=== PATIENT | female | born 1945 | race Caucasian/White ===

== ENCOUNTER 2017-09-05 17:46 | Emergency (ER) | payer OTHER, SELFPAY ==
[2017-09-05 18:00] VITALS: BP 155/91; PULSE 84; RESP 14; TEMP 36.8; O2SAT 100; BMI 33.5
--- NOTE | 2017-09-05 21:40 | PC.NURSE ---
pt reported wanting to leave. Had brought [facility] paperwork in to room for patient to sign. Pt stated would wait at this time. After about 15min, pt visualized ambulating out of ER. Pt did not sign [facility] paperwork.
--- NOTE | 2017-09-06 03:35 | ED.NAVMDI ---
HPI - Nausea/Vomiting/Diarrhea General Chief complaint: Nausea/Vomiting/Diarrhea Stated complaint: STOMACH PAIN, SHORT OF BREATH Time Seen by Provider: 09/05/17 20:17 History of Present Illness HPI Narrative: The patient left prior to my evaluation. I was not notified of patient wanting to leave until after she left. Related Data Home Medications Medication Instructions Recorded Confirmed ASPIRIN (#ASPIRIN) 81 mg PO Q DAY #0 11/21/10 niacin (inositol niacinate) 2,000 mg PO HS #0 11/23/16 [Niacin Flush Free] Previous Rx's Medication Instructions Recorded Diabetic Shoes pkg #1 06/06/16 Walker: Four Wheel u #1 10/24/16 temazepam 0 mg PO HSP #60 cap 01/22/17 pramipexole [Mirapex] 0.375 mg PO HS #60 tab 03/02/17 furosemide 0 PO SEE INSTRUCTIONS #45 tab 05/07/17 Diabetic Shoes pkg #1 06/05/17 glimepiride 0 PO QDAY #270 tab 06/07/17 nacojrlibh-rapphwfkroxme-znsc 1 tab PO Q6HP PRN #120 tab 07/18/17 bupropion HCl [Wellbutrin SR] 150 mg PO BID #60 tab 07/26/17 gabapentin [Neurontin] 600 mg PO TID #270 tab 07/26/17 ciprofloxacin HCl 250 mg PO BID #10 tab 07/27/17 carbidopa-levodopa 0 PO SEE INSTRUCTIONS #450 tab 08/01/17 cyclobenzaprine 5 mg PO Q8H PRN #20 tab 08/01/17 lovastatin 0 PO EVERY OTHER DAY #45 tab 08/01/17 pioglitazone [Actos] 15 mg PO QDAY #90 tab 08/01/17 levothyroxine [Levoxyl] 0.175 mg PO QDAY #90 tab 08/02/17 oxycodone-acetaminophen 5 mg-325 See Label Instructions .ROUTE 08/31/17 mg tablet .COMPLEX PRN #120 tab Allergies Allergy/AdvReac Type Severity Reaction Status Date / Time amoxicillin [From AUGMENTIN] Allergy Mild RASH Unverified 08/08/17 13:01 clavulanic acid Allergy Mild RASH Unverified 08/08/17 13:01 [From AUGMENTIN] metformin [METFORMIN] AdvReac Severe SWELLING Unverified 08/08/17 13:01 [facility] Social History Smoking Status: Never smoker Discharge Plan Departure Discharge Date/Time: 09/05/17 21:43 Interventions: ED Discharge Assessment Last Done: 09/05/17 21:42 Prescriptions: No Action ASPIRIN (#ASPIRIN) 81 mg PO Q DAY Qty: 0 RF: 0 Diabetic Shoes Qty: 1 RF: 0 Walker: Four Wheel Qty: 1 RF: 0 niacin (inositol niacinate) [Niacin Flush Free] 750 MG capsule 2,000 mg PO HS Qty: 0 RF: 0 temazepam 15 MG capsule PO HSP Qty: 60 RF: 5 pramipexole [Mirapex] 0.125 MG tablet 0.375 mg PO HS Qty: 60 RF: 0 furosemide 40 MG tablet PO SEE INSTRUCTIONS Qty: 45 RF: 3 Diabetic Shoes Qty: 1 RF: 0 glimepiride 2 MG tablet PO QDAY Qty: 270 RF: 3 dbthtkfyzy-ngyxlnnpbrjwn-fqwn 1 EACH tablet 1 tab PO Q6HP PRNQty: 120 RF: 5 bupropion HCl [Wellbutrin SR] 150 MG tablet extended release 12 hr 150 mg PO BID Qty: 60 RF: 5 gabapentin [Neurontin] 600 MG tablet 600 mg PO TID Qty: 270 RF: 0 ciprofloxacin HCl 250 MG tablet 250 mg PO BID Qty: 10 RF: 0 pioglitazone [Actos] 15 MG tablet 15 mg PO QDAY Qty: 90 RF: 4 carbidopa-levodopa 50 MG/200 MG tablet extended release PO SEE INSTRUCTIONS Qty: 450 RF: 3 lovastatin 10 MG tablet PO EVERY OTHER DAY Qty: 45 RF: 5 cyclobenzaprine 5 MG tablet 5 mg PO Q8H PRNQty: 20 RF: 3 levothyroxine [Levoxyl] 175 MCG tablet 0.175 mg PO QDAY Qty: 90 RF: 0 oxycodone-acetaminophen [Percocet] 5-325 mg tablet See Label Instructions .ROUTE .COMPLEX PRN (Reason: pain) Qty: 120 RF: 0
== END 2017-09-05 21:43 ==
PROVIDERS: Emergency Provider Emergency Medicine; Family Provider Family Medicine; PCP Family Medicine
DX: R10.9 Unspecified abdominal pain (principal)
CPT/HCPCS: 99281; 99282

== ENCOUNTER → 2017-10-04 10:20 | Outpatient (CLI) | payer MEDICARE, OTHER, SELFPAY ==
[2017-10-04 11:17] LABS: Hemoglobin A1C% w Est Avg Glu 7.7 % (4.0-6.0)
[2017-10-04 11:49] LABS: Thyroid Stimulating Hormone 0.25 uIU/mL (0.47-4.68)
== END ==
PROVIDERS: Family Provider Family Medicine; PCP Family Medicine; Visit Provider Family Medicine
DX: E11.9 Type 2 diabetes mellitus without complications (principal); E03.9 Hypothyroidism, unspecified
CPT/HCPCS: 36415; 83036; 84443

== ENCOUNTER → 2017-12-21 08:57 | Outpatient (CLI) | payer MEDICARE, OTHER, SELFPAY ==
--- NOTE | 2017-12-21 08:59 | DI.MRI.S_ITS ---
PROCEDURE: MR LUMBAR SPINE WO CON INDICATIONS: Status post fusion with hardware loosening TECHNIQUE: Noncontrast sagittal T1 spin echo and T2 fast echo, sagittal STIR, axial T1 and T2 fast spin echo through the lumbar spine. In cases with scoliosis, additional coronal T2 fast spin echo may be performed. COMPARISON: [facility] [place], CR, SPINE LUMB 2 OR 3VW, 08/15/2016, 11:20. [facility] [place], CR, XR LUMBAR SPINE 2 OR 3 VIEWS, 04/02/2017, 13:26. [facility] [place], CR, XR LUMBAR SPINE 2 OR 3 VIEWS, 07/11/2017, 15:42. [facility], MR, L-SPINE W&WO CONTRAST, 04/26/2017, 14:59. FINDINGS: Image quality: Excellent. Alignment and Curvature: There is grade 1 anterolisthesis of L2 on L3 and L3 on L4. Bone Marrow: There is discectomy and spinal fusion at L2-L3 and L3-L4. Mild compression fracture of L4 involving the superior endplate, likely chronic. Spinal Cord: Conus medullaris terminates at the L1-L2 level. Visualized cord demonstrates normal signal and size. Paraspinous Soft Tissues: No paravertebral masses. L1-L2: Normal appearance. L2-L3: Discectomy, left heminephrectomy and posterior fusion. There is minimal posterior bulge. Severe right and moderate left facet arthropathy. There is mild central canal stenosis. Mild bilateral foraminal stenosis. There is no significant change from the last exam. L3-L4: Discectomy, left hemilaminectomy and posterior fusion. There is minimal posterior bulge. Severe right and moderate left facet arthropathy. There is mild central canal stenosis. Mild bilateral foraminal stenosis. There is no significant change from the last exam. L4-L5: Preserved disc height and moderate disc desiccation. No central canal or foraminal stenosis. L5-S1: Normal appearance. IMPRESSION: 1. Multilevel degenerative and postsurgical changes as described, minimally changed from the last exam. 2. Mild central canal stenosis at L 2-L3 and L3-L4. 3. Mild foraminal stenosis as described. 4. Mild nonacute compression fracture of L4. Dictated by: Isis Billy M.D. on 12/21/2017 at 11:40 Approved by: Isis Billy M.D. on 12/21/2017 at 12:04
== END ==
PROVIDERS: Family Provider Family Medicine; PCP Family Medicine; Visit Provider Physical Medicine & Rehabilitation
DX: M51.36 Other intervertebral disc degeneration, lumbar region (principal); M48.061 Spinal stenosis, lumbar region without neurogenic claudication; M48.56XA Collapsed vertebra, not elsewhere classified, lumbar region, initial encounter for fracture; M54.5 Low back pain; G89.29 Other chronic pain; Z98.1 Arthrodesis status
CPT/HCPCS: 72148

== ENCOUNTER 2017-12-31 11:34 | Emergency (ER) | payer MEDICARE, OTHER, SELFPAY ==
[2017-12-31 11:48] VITALS: BP 151/81; PULSE 113; RESP 22; TEMP 36.9; O2SAT 100; BMI 33.6
--- NOTE | 2017-12-31 11:50 | DI.RAD.S_ITS ---
PROCEDURE: XR CHEST 1V INDICATIONS: chest pain TECHNIQUE: One view of the chest was acquired. COMPARISON: [facility], , CHEST 2 VIEW, 07/03/2017, 16:36. FINDINGS: Surgical changes and devices: None. Lungs and pleura: No pleural effusions or pneumothorax. Lungs are clear. Mediastinum: Mediastinal contours appear normal. Heart size is normal. Bones and chest wall: No suspicious bony lesions. Overlying soft tissues appear unremarkable. IMPRESSION: No acute cardiopulmonary pathology. Dictated by: Jose F Soto M.D. on 12/31/2017 at 12:02 Approved by: Jose F Soto M.D. on 12/31/2017 at 12:02
[2017-12-31] MEDS: SODIUM CHLORIDE 0.9% 1,000 ML 150 ML IV (11:55)
[2017-12-31] MEDS: ASPIRIN 81 MG TAB 324 MG PO (11:55)
[2017-12-31 11:57] LABS: Add Manual Diff / Slide Review NO; Basophils Percent Auto 0.3 % (0-2); Hematocrit 35.2 % (36-46); Hemoglobin 11.1 g/dL (12.0-16.0); Lymphocytes Percent Auto 17.4 % (25-40); Mean Corpuscular HGB Conc 31.5 % (30-36); Mean Corpuscular Hemoglobin 23.7 PG (26-34); Mean Corpuscular Volume 75.3 fL (80-100); Monocytes Percent Auto 6.7 % (3-14); Neutrophils Absolute Auto 7400 /uL (3000-5900); Neutrophils Percent Auto 74.6 % (50-75); Platelet Count 389 X10^3/uL (150-400); Red Blood Cell Count 4.67 X10^6/uL (4.0-5.2); Red Cell Distribution Width 19.3 % (11.6-14.8); White Blood Cell Count 9.9 X10^3/uL (4.5-11.0)
[2017-12-31 12:04] LABS: Alanine Aminotransferase 9 IU/L (9-52); Albumin 4.4 g/dL (3.5-5.0); Albumin Globulin Ratio 1.4 (1.0-2.8); Alkaline Phosphatase 86 U/L (38-126); Aspartate Aminotransferase 29 IU/L (14-36); BUN Creatinine Ratio 18.2 (6-22); Bilirubin Total 0.2 mg/dL (0.2-1.3); Blood Urea Nitrogen 20 mg/dL (7-17); Calcium 9.7 mg/dL (8.4-10.2); Carbon Dioxide 23 mmol/L (22-32); Chloride 102 mmol/L (98-107); Creatine Kinase < 20 U/L (30-135); Globulin 3.1 g/dL (1.7-4.1); Glucose 180 mg/dL (80-110); HEMOLYSIS < 15 (0-50); Lipase 111 U/L (23-300); Potassium 3.8 mmol/L (3.4-5.1); Sodium 140 mmol/L (137-145); Total Protein 7.5 g/dL (6.3-8.2)
--- NOTE | 2017-12-31 12:08 | ED.CHESTPAIN ---
HPI - Chest Pain General Chief Complaint: Chest Pain Stated Complaint: CHEST PAIN Time Seen by Provider: 12/31/17 11:53 Source: patient and family Mode of arrival: ambulatory Limitations: no limitations History of Present Illness HPI narrative: This is a 72-year-old female comes to the emergency department with complaint of feeling short of breath and having some chest pain that started about 1:00 a.m.. Patient states that she did eat much today Um and last night. Um she felt sort of lightheaded like she might pass out so she did eat some food overnight did not really help. She is having tunnel vision but just feels lightheaded like she might fall. Um she does feel increasingly short of breath with exertion. She is having some pain on the left side of her chest and through to her back. It has been constant since about 1:00 a.m. without any resolution. She is not having any fevers. Um she has felt kind of hot and sweaty but no actual sweats or chills. She has had a mild cough. No vomiting. She has had some diarrhea the last day. She has swelling in her lower extremities but this is irregular current sit no worsening. She does take Lasix every other day. She does not have any history of ND or CVA but does take medication for cholesterol and thyroid as well as diabetes type 2 which she has been on medication for about a month. She does have a history significant for gastric bypass per MD complaint: chest pain Onset (ago): hour(s) Duration: constant Pain location: left chest Severity: moderate Quality: tightness and aching Relieving factors: nothing Exacerbating factors: exertion Related Data Home Medications Medication Instructions Recorded Confirmed ASPIRIN (#ASPIRIN) 81 mg PO Q DAY #0 11/21/10 12/06/17 niacin (inositol niacinate) 2,000 mg PO HS #0 11/23/16 12/06/17 [Niacin Flush Free] Previous Rx's Medication Instructions Recorded Diabetic Shoes pkg #1 06/06/16 Walker: Four Wheel u #1 10/24/16 pramipexole [Mirapex] 0.375 mg PO HS #60 tab 03/02/17 furosemide 0 PO SEE INSTRUCTIONS #45 tab 05/07/17 Diabetic Shoes pkg #1 06/05/17 [id number]-xuywqvidyooez-wocz 1 tab PO Q6HP PRN #120 tab 07/18/17 bupropion HCl [Wellbutrin SR] 150 mg PO BID #60 tab 07/26/17 carbidopa-levodopa 0 PO SEE INSTRUCTIONS #450 tab 08/01/17 lovastatin 0 PO EVERY OTHER DAY #45 tab 08/01/17 pioglitazone [Actos] 15 mg PO QDAY #90 tab 08/01/17 glimepiride 2 mg tablet See Label Instructions PO QDAY 09/17/17 #270 tab gabapentin 600 mg tablet See Label Instructions PO TID #180 10/12/17 tab cyclobenzaprine 5 mg tablet 5 mg PO Q8H PRN #20 tab 11/07/17 temazepam 15 mg capsule 0 mg PO HSP #60 cap 11/07/17 levothyroxine 150 mcg capsule 150 mcg PO DAILY #90 cap 11/21/17 oxycodone-acetaminophen 5 mg-325 See Label Instructions .ROUTE 12/17/17 mg tablet .COMPLEX PRN #180 tab Allergies Allergy/AdvReac Type Severity Reaction Status Date / Time amoxicillin [From AUGMENTIN] Allergy Mild RASH Verified 12/31/17 11:51 clavulanic acid Allergy Mild RASH Verified 12/31/17 11:51 [From AUGMENTIN] metformin [METFORMIN] AdvReac Severe SWELLING Verified 12/31/17 11:51 Review of Systems Review of Systems All systems reviewed & are unremarkable except as noted in HPI and below Constitutional Denies chills, Denies fever(s), Denies lethargy, Denies night sweats, Reports poor appetite and Denies weakness Cardiovascular Reports chest pain, Reports chest pain at rest, Reports chest pain with activity, Denies diaphoresis, Denies syncope, Denies rapid heart rate, Reports pedal edema (chronic), Denies irregular heart rhythm, Denies lightheadedness, Denies palpitations, Reports dyspnea, Reports dyspnea on exertion and Denies orthopnea Respiratory Reports chest congestion (mild), Reports cough, Denies pain with cough, Reports dyspnea and Reports dyspnea on exertion Gastrointestinal Gastrointestinal: Denies abdominal pain, Denies melena, Denies change in bowel habits, Denies constipation, Reports diarrhea, Denies nausea and Denies vomiting Genitourinary Denies hematuria, Denies flank pain, Denies urinary incontinence and Denies urinary urgency Neurologic Denies syncope and Denies weakness Endocrine Denies palpitations [facility] Medical History Anemia (Chronic ~2004) Arthritis (Chronic) Chronic back pain (Chronic ~2009) Foot pain (Chronic ~2010) Fractures (Chronic ~2011) Gastric ulcer (Chronic ~1991) Headache (Chronic ~1989) History of irregular menstrual cycles (Chronic ~1989) Hyperthyroidism (Chronic ~2004) Lupus (Chronic ~1999) Migraines (Chronic ~1989) Neuropathy (Chronic ~2008) Ovarian cyst (Chronic ~1999) Painful menstrual periods (Chronic ~1978) Restless leg syndrome (Chronic ~1989) Chicken pox (Resolved) Measles (Resolved) Mumps (Resolved) Surgical History Gastric bypass status for obesity (Acute) H/O hernia repair (Acute) S/P foot surgery, right (Acute) Family History Grandfather No problems noted. Grandmother No problems noted. Mother No problems noted. Social History marital status: Smoking Status: Never smoker alcohol intake: never substance use type: does not use Exam Initial Vital Signs Initial Vital Signs: Vital Signs Temperature 98.5 F 12/31/17 11:48 Pulse Rate 113 H 12/31/17 11:48 Respiratory Rate 22 12/31/17 11:48 Blood Pressure 151/81 H 12/31/17 11:48 Pulse Oximetry 100 12/31/17 11:48 Const General: cooperative, well developed and acute distress ( mild) Nutritional Appearance: well nourished Orientation: alert, awake, oriented x3 and not confused Chest Chest: normal inspection of the chest Resp Effort & Inspection: normal respiratory effort, able to speak in complete sentences, not labored, no respiratory distress and no use of accessory muscles Auscultation: clear to auscultation bilaterally, no rales, no rhonchi and no wheezes Cardio Rate: regular rate Rhythm: regular rhythm Heart Sounds: no click, no gallops, no murmurs and no rubs Bruits: no abdominal aortic bruits Pulses: normal peripheral pulses GI Inspection: non-distended Palpation: soft, no hepatosplenomegaly, No guarding, No pulsatile mass and No tender Auscultation: normal bowel sounds Skin General: no rashes or lesions noted Scores HEART Score Heart Score history: Slightly Suspicious Heart Score EKG: Normal Heart Score Age: > or = 65 years old Heart Score risk factors: 1-2 risk factors Heart Score troponin: < or = to normal limit Heart Score Total: 3 Course Orders Ordered: ED Orders 12/31/17 11:44 B Type Natriuretic Peptide Stat Complete Blood Count AUTO DIFF Stat Comprehensive Metabolic Panel Stat D Dimer Stat Lipase Stat Troponin & CK Cardiac Panel Stat 12/31/17 11:50 XR chest 1V Stat EKG-12 Lead Stat 12/31/17 13:46 CT angio chest PE protocol Stat 12/31/17 14:02 Urine Microscopic Stat Discontinued Medications Aspirin (Aspirin Chew) 324 mg PO NOW ONE Stop: 12/31/17 11:51 Last Admin: 12/31/17 11:55 Dose: 324 mg Sodium Chloride (Normal Saline 0.9%) 1,000 mls @ 150 mls/hr IV CONT FRANCINE Last Infusion: 12/31/17 15:10 Dose: 0 mls/hr Infusion: 12/31/17 14:10 Dose: 150 mls/hr Infusion: 12/31/17 13:58 Dose: 0 mls/hr Infusion: 12/31/17 13:15 Dose: 150 mls/hr Infusion: 12/31/17 12:45 Dose: 999 mls/hr Admin: 12/31/17 11:55 Dose: 150 mls/hr Morphine Sulfate (Morphine) 4 mg IV NOW ONE Stop: 12/31/17 13:35 Last Admin: 12/31/17 13:42 Dose: 4 mg Nitroglycerin (Nitrostat) 0.4 mg SL [id number] PRN PRN Reason: Chest Pain Last Admin: 12/31/17 12:42 Dose: 0.4 mg Reevaluation(s) Reevaluation #1: Recheck after nitro SL and fluids. Patient chest pain is worse. Discussed labs, ekg and that I would like to evaluate for PE. Patient is agreeable. Reevaluation #2: We discussed PE findings, which are negative. Patient labs, EKG x2 are all negative as well as chest x-ray. Patient is feeling much more comfortable at this time and feels comfortable returning home. Time: 14:45 Vital Signs - 8 hr 12/31/17 11:48 12/31/17 12:42 12/31/17 12:50 Temperature 98.5 F Pulse Rate 113 H 80 91 H Respiratory Rate 22 Blood Pressure 151/81 H 119/80 105/61 Blood Pressure [Right Arm] Pulse Oximetry 100 12/31/17 13:30 12/31/17 14:00 12/31/17 14:30 Temperature Pulse Rate 77 77 72 Respiratory Rate 17 21 11 L Blood Pressure Blood Pressure [Right Arm] 110/71 130/63 116/58 L Pulse Oximetry 95 100 96 MDM - Chest Pain Differential Diagnosis Likely atypical chest pain, costochondritis and chest pain Lab Data Attestation: I reviewed the patient's lab results. Result diagrams: 12/31/17 11:44 12/31/17 11:44 Lab Results 12/31/17 12/31/17 12/31/17 Range/Units 11:44 11:44 11:44 WBC 9.9 (4.5-11.0) X10^3/uL RBC 4.67 (4.0-5.2) X10^6/uL Hgb 11.1 L (12.0-16.0) g/dL Hct 35.2 L (36-46) % MCV 75.3 L (80-100) fL MCH 23.7 L (26-34) PG MCHC 31.5 (30-36) % RDW 19.3 H (11.6-14.8) % Plt Count 389 (150-400) X10^3/uL Neut % (Auto) 74.6 (50-75) % Lymph % (Auto) 17.4 L (25-40) % [place] % (Auto) 6.7 (3-14) % Eos % (Auto) 1.0 L (2-4) % Baso % (Auto) 0.3 (0-2) % Neut # (Auto) 7400 H (5135-7079) /uL D-Dimer 234 H (<230) ng/mL Sodium 140 (137-145) mmol/L Potassium 3.8 (3.4-5.1) mmol/L Chloride 102 (98-107) mmol/L Carbon Dioxide 23 (22-32) mmol/L BUN 20 H (7-17) mg/dL Creatinine 1.10 H (0.52-1.04) mg/dL Estimated GFR 49.0 L (>60) mL/min BUN/Creatinine Ratio 18.2 (6-22) Glucose 180 H (80-110) mg/dL Calcium 9.7 (8.4-10.2) mg/dL Total Bilirubin 0.2 (0.2-1.3) mg/dL AST 29 (14-36) IU/L ALT 9 (9-52) IU/L Alkaline Phosphatase 86 (38-126) U/L Total Creatine Kinase < 20 L (30-135) U/L CK-MB (CK-2) TNP Troponin I < 0.012 (0.01-0.034) ng/mL B-Natriuretic Peptide (<100) Total Protein 7.5 (6.3-8.2) g/dL Albumin 4.4 (3.5-5.0) g/dL Globulin 3.1 (1.7-4.1) g/dL Albumin/Globulin Ratio 1.4 (1.0-2.8) Lipase 111 (23-300) U/L Urine RBC (0-5/HPF) Urine WBC (0-5/HPF) Ur Squamous Epith Cells Urine Bacteria (None) Ur Culture Indicated? Micro UA Comment 12/31/17 12/31/17 Range/Units 11:44 14:02 WBC (4.5-11.0) X10^3/uL RBC (4.0-5.2) X10^6/uL Hgb (12.0-16.0) g/dL Hct (36-46) % MCV (80-100) fL MCH (26-34) PG MCHC (30-36) % RDW (11.6-14.8) % Plt Count (150-400) X10^3/uL Neut % (Auto) (50-75) % Lymph % (Auto) (25-40) % [place] % (Auto) (3-14) % Eos % (Auto) (2-4) % Baso % (Auto) (0-2) % Neut # (Auto) (8378-3689) /uL D-Dimer (<230) ng/mL Sodium (137-145) mmol/L Potassium (3.4-5.1) mmol/L Chloride (98-107) mmol/L Carbon Dioxide (22-32) mmol/L BUN (7-17) mg/dL Creatinine (0.52-1.04) mg/dL Estimated GFR (>60) mL/min BUN/Creatinine Ratio (6-22) Glucose (80-110) mg/dL Calcium (8.4-10.2) mg/dL Total Bilirubin (0.2-1.3) mg/dL AST (14-36) IU/L ALT (9-52) IU/L Alkaline Phosphatase (38-126) U/L Total Creatine Kinase (30-135) U/L CK-MB (CK-2) Troponin I (0.01-0.034) ng/mL B-Natriuretic Peptide 42.2 (<100) Total Protein (6.3-8.2) g/dL Albumin (3.5-5.0) g/dL Globulin (1.7-4.1) g/dL Albumin/Globulin Ratio (1.0-2.8) Lipase (23-300) U/L Urine RBC 0-1/hpf (0-5/HPF) Urine WBC 1-5/hpf (0-5/HPF) Ur Squamous Epith Cells 1-5 /hpf Urine Bacteria Occasional (0-1) (None) Ur Culture Indicated? Cult not indicated Micro UA Comment Microscopic normal Urine Dip Bedside Urine Glucose Negative Bedside Urine Bilirubin - Negative Bedside Urine Ketone +/- 5 Urine Specific [place] 1.025 Bedside Urine Occult Blood - Negative Bedside Urine pH 6.0 Bedside Urine Protein +/- 15 Bedside Urine Urobilinogen - Negative Bedside Urine Nitrite - Negative Bedside Urine Leukocytes - Negative Esterase Imaging Data Chest x-ray: Radiologist's impression: [address] [address] XRay Report Signed Patient: Veronique Gould LMR#: [id number] : 7Acct:[id number] Age/Sex: 72 / FDate of Service: 12/31/17 Loc: ED Accession Number: [id number] Procedure: XR chest 1V Ordering Provider: Katrin Dey D.O. PROCEDURE: XR CHEST 1V INDICATIONS: chest pain TECHNIQUE: One view of the chest was acquired. COMPARISON: [facility], , CHEST 2 VIEW, 07/03/2017, 16:36. FINDINGS: Surgical changes and devices: None. Lungs and pleura: No pleural effusions or pneumothorax. Lungs are clear. Mediastinum: Mediastinal contours appear normal. Heart size is normal. Bones and chest wall: No suspicious bony lesions. Overlying soft tissues appear unremarkable. IMPRESSION: No acute cardiopulmonary pathology. Dictated by: Jose F Soto M.D. on 12/31/2017 at 12:02 Approved by: Jose F Soto M.D. on 12/31/2017 at 12:02 CT scan - chest: Attestation: I personally reviewed and interpreted this imaging study as follows: Radiologist's impression: Patient: Veronique Gould LMR#: [id number] : 1946Acct:[id number] Age/Sex: 72 / FDate of Service: 12/31/17 Loc: ED Accession Number: [id number] Procedure: CT angio chest PE protocol Ordering Provider: Katrin Dey D.O. PROCEDURE: CT ANGIO CHEST PE PROTOCOL INDICATIONS: SOB, chest pain left sided. TECHNIQUE: After the administration of intravenous contrast, 2 mm thick sections acquired from the pulmonary apices to the posterior costophrenic angles. 3-dimensional maximum intensity projection (MIP) coronal and sagittal reformats were then acquired through the thorax. For radiation dose reduction, the following was used: automated exposure control, adjustment of mA and/or kV according to patient size. COMPARISON: None. FINDINGS: Image quality: Excellent. Pulmonary arteries: Pulmonary arteries are normal in size, and demonstrate no intraluminal filling defects to suggest central pulmonary embolism. Lungs and pleura: Dependent atelectasis in posterior aspect of bilateral lung bases are seen. Bilateral lungs are otherwise clear. No pleural effusions or pneumothorax. Central and peripheral airways are patent. Mediastinum: Heart size is normal, without pericardial effusion. No mediastinal or hilar adenopathy. Thoracic aorta is normal in caliber and enhancement. Esophagus is normal in caliber. Small hiatal hernia is seen. Bones and chest wall: No suspicious bony lesions. Ribs and thoracic spine appear intact throughout. Thyroid gland is within normal limits.. No axillary or supraclavicular adenopathy. Abdomen: Post surgical changes are noted in epigastric region from prior gastric bypass surgery. Visualized upper abdominal solid organs appear normal in the early arterial phase of enhancement. IMPRESSION: 1. No evidence of pulmonary emboli. No thoracic aortic aneurysm or gross dissection. 2. No mediastinal or hilar adenopathy. Small hiatal hernia. Postsurgical changes at epigastric region likely represent prior gastric bypass surgery. 3. Bibasilar dependent atelectasis. No focal infiltrate, pleural effusion or pneumothorax. Dictated by: Jose F Soto M.D. on 12/31/2017 at 14:03 Approved by: Jose F Soto M.D. on 12/31/2017 at 14:08 ECG Data Attestation: I personally reviewed and interpreted this ECG as follows: Prior ECG tracings: available for review Interpretation: sinus rhythm with a rate of 96, P are 134 QRS is 84 and QTC of 388. no ST elevation or depression is appreciated EKG 2. shows a sinus rhythm no ST changes appreciated. Ventricular rate is 77, P are is 144, QRS is 86 and QTC is 409. MDM Narrative Medical decision making narrative: Patient some does have some chest pain and shortness of breath no acute EKG changes are noted initial troponin is negative which is almost 10 hr after initial onset. D-dimer and BNP were ordered for further evaluation. Patient's chest pain was not improved with nitro and actually was worsen. She was receiving morphine which did approve it. She is feeling much better after the morphine and fluids. Lab work did not show any major changes, CT with PE protocol did not show a pulmonary embolism or other acute changes. Discussed with patient Um could potentially have ACS although her imaging, lab work and EKGs are not consistent with this. She is comfortable returning home and following up with her primary care physician. She does take an aspirin daily and aware that some cardiac causes have not been 100% ruled out and that she should follow up and discuss with her physician about possibly stress testing or further evaluation. Discharge Plan Departure Patient Disposition: Home Clinical Impression: Chest pain Discharge Date/Time: 12/31/17 15:11 Interventions: ED Discharge Assessment Last Done: 12/31/17 15:10 Instructions: DI for Chest Pain Activity Restrictions/Additional Instructions: Follow-up with your primary care physician in the next 24-48 hours for recheck. Call tomorrow morning for an appointment. Discuss with your physician they may wish to discuss getting a stress test. Continue your home medications as prescribed. Continue to take your aspirin daily. If you are having worsening symptoms, syncope or passing out, increasing chest pain, shortness of breath or other new changes return immediately to the emergency department. Prescriptions: No Action ASPIRIN (#ASPIRIN) 81 mg PO Q DAY Qty: 0 RF: 0 Diabetic Shoes Qty: 1 RF: 0 Walker: Four Wheel Qty: 1 RF: 0 niacin (inositol niacinate) [Niacin Flush Free] 750 MG capsule 2,000 mg PO HS Qty: 0 RF: 0 pramipexole [Mirapex] 0.125 MG tablet 0.375 mg PO HS Qty: 60 RF: 0 furosemide 40 MG tablet PO SEE INSTRUCTIONS Qty: 45 RF: 3 Diabetic Shoes Qty: 1 RF: 0 bnheacpqkl-tlwnldzfwlpdt-wajg 1 EACH tablet 1 tab PO Q6HP PRNQty: 120 RF: 5 bupropion HCl [Wellbutrin SR] 150 MG tablet extended release 12 hr 150 mg PO BID Qty: 60 RF: 5 pioglitazone [Actos] 15 MG tablet 15 mg PO QDAY Qty: 90 RF: 4 carbidopa-levodopa 50 MG/200 MG tablet extended release PO SEE INSTRUCTIONS Qty: 450 RF: 3 lovastatin 10 MG tablet PO EVERY OTHER DAY Qty: 45 RF: 5 glimepiride 2 mg tablet See Label Instructions PO QDAY Qty: 270 RF: 3 cyclobenzaprine 5 mg tablet 5 mg PO Q8H PRN (Reason: muscle spasm) Qty: 20 RF: 3 temazepam 15 mg capsule PO HSP Qty: 60 RF: 5 levothyroxine 150 mcg capsule 150 mcg PO DAILY Qty: 90 RF: 0 oxycodone-acetaminophen [Percocet] 5-325 mg tablet See Label Instructions .ROUTE .COMPLEX PRN (Reason: pain) Qty: 180 RF: 0 gabapentin [Neurontin] 600 mg tablet See Label Instructions PO TID Qty: 180 RF: 5
[2017-12-31 12:17] LABS: Troponin I < 0.012 ng/mL (0.01-0.034)
[2017-12-31 12:42] VITALS: BP 119/80; PULSE 80
[2017-12-31] MEDS: NITROGLYCERIN 0.4 MG SL TAB SL (12:42)
--- NOTE | 2017-12-31 12:45 | PC.NURSE ---
IV NS rate increased from 150 mL/hr to 999/mL per hour for a 500 mL bolus, per Dr. Dey's order.
[2017-12-31 12:49] LABS: D Dimer 234 ng/mL (<230)
[2017-12-31 12:50] VITALS: BP 105/61; PULSE 91
[2017-12-31 13:14] LABS: B Type Natriuretic Peptide 42.2 (<100)
[2017-12-31 13:30] VITALS: BP 110/71; PULSE 77; RESP 17; O2SAT 95
--- NOTE | 2017-12-31 13:37 | PC.NURSE ---
Addendum entered by Jessa Alcantara R.N. 12/31/17 13:59: Bilateral blood pressures within 10 mm Hg of each other. Original Note: Pt reports worsening chest pain. 12/07. Her NTG did not help her pain. Notified provider. Repeat EKG ordered.
[2017-12-31] MEDS: MORPHINE 4 MG/ML INJ IV (13:42)
--- NOTE | 2017-12-31 13:46 | DI.CT.S_ITS ---
PROCEDURE: CT ANGIO CHEST PE PROTOCOL INDICATIONS: SOB, chest pain left sided. TECHNIQUE: After the administration of intravenous contrast, 2 mm thick sections acquired from the pulmonary apices to the posterior costophrenic angles. 3-dimensional maximum intensity projection (MIP) coronal and sagittal reformats were then acquired through the thorax. For radiation dose reduction, the following was used: automated exposure control, adjustment of mA and/or kV according to patient size. COMPARISON: None. FINDINGS: Image quality: Excellent. Pulmonary arteries: Pulmonary arteries are normal in size, and demonstrate no intraluminal filling defects to suggest central pulmonary embolism. Lungs and pleura: Dependent atelectasis in posterior aspect of bilateral lung bases are seen. Bilateral lungs are otherwise clear. No pleural effusions or pneumothorax. Central and peripheral airways are patent. Mediastinum: Heart size is normal, without pericardial effusion. No mediastinal or hilar adenopathy. Thoracic aorta is normal in caliber and enhancement. Esophagus is normal in caliber. Small hiatal hernia is seen. Bones and chest wall: No suspicious bony lesions. Ribs and thoracic spine appear intact throughout. Thyroid gland is within normal limits.. No axillary or supraclavicular adenopathy. Abdomen: Post surgical changes are noted in epigastric region from prior gastric bypass surgery. Visualized upper abdominal solid organs appear normal in the early arterial phase of enhancement. IMPRESSION: 1. No evidence of pulmonary emboli. No thoracic aortic aneurysm or gross dissection. 2. No mediastinal or hilar adenopathy. Small hiatal hernia. Postsurgical changes at epigastric region likely represent prior gastric bypass surgery. 3. Bibasilar dependent atelectasis. No focal infiltrate, pleural effusion or pneumothorax. Dictated by: Jose F Soto M.D. on 12/31/2017 at 14:03 Approved by: Jose F Soto M.D. on 12/31/2017 at 14:08
[2017-12-31 14:00] VITALS: BP 130/63; PULSE 77; RESP 21; O2SAT 100
[2017-12-31 14:17] LABS: Bacteria Urine Occasional (0-1); RBC Urine 0-1/HPF (0-5/HPF); Squamous Epithelial Cell Urine 1-5 /HPF; WBC Urine 1-5/HPF (0-5/HPF)
[2017-12-31 14:18] LABS: Culture Indicated Urine Cult Not Indicated; Urine Comments Microscopic Normal
[2017-12-31 14:30] VITALS: BP 116/58; PULSE 72; RESP 11; O2SAT 96
== END 2017-12-31 15:11 | disposition home or self-care (01) ==
PROVIDERS: Emergency Provider Emergency Medicine; Family Provider Family Medicine; PCP Family Medicine
DX: R07.89 Other chest pain (principal)
CPT/HCPCS: 36415; 36591; 71045; 71275; 80053; 81003; 81015; 82550; 83690; 83880; 84484; 85025; 85379; 93005; 93010; 96361; 96374; 99285; J2270; Q9967

== ENCOUNTER 2018-01-14 13:36 | Observation (INO) | payer MEDICARE, OTHER, SELFPAY ==
[2018-01-14] VITALS (18 sets, daily range): BP systolic 117–162; BP diastolic 54–81; PULSE 85–107; RESP 14–21; TEMP 36.7–38.8; O2SAT 96–99; BMI 33.5; BMI 33.7
--- NOTE | 2018-01-14 14:03 | ED.WEAKNESS ---
HPI - Weakness General Chief complaint: Weakness Stated complaint: 'almost fallen twice today' Time Seen by Provider: 01/14/18 14:00 Source: patient Mode of arrival: other Limitations: no limitations History of Present Illness HPI Narrative: 72-year-old female with history of diabetes and hypothyroidism that is a nonsmoker here for complaint of weakness and falls along with tremors to all extremities that started yesterday. She also states that she has had vision changes 1 was hard to focus with both eyes open for the same timeframe. She does report that she has had a headache for the same timeframe. No nausea or vomiting. She states that she has had some ground level falls during the same timeframe. She states that she was using her walker and then had a fall due to the tremors. She normally uses her walker as baseline for her due to peripheral neuropathy. Positive p.o. intake. No nausea vomiting. She denies any urinary symptoms. No flank pain. No abdominal pain. No urinary symptoms. No chest pain no shortness of breath. No cough. She does state that she has a tooth that needs to be worked on. She denies any other concerns or complaints. MD Complaint: generalized weakness Related Data Home Medications Medication Instructions Recorded Confirmed aspirin 81 mg PO DAILY #0 11/21/10 01/14/18 niacin (inositol niacinate) 2,000 mg PO HS #0 11/23/16 01/14/18 [Niacin Flush Free] Diabetic Shoes 1 pkg MISCELLANEOUS DIRECTED 01/14/18 01/14/18 Walker: Four Wheel 1 u MISCELLANEOUS DIRECTED 01/14/18 01/14/18 jevskndczh-glscmvopwhzrq-yxik 1 tab PO Q6HP PRN 01/14/18 01/14/18 carbidopa-levodopa 1 dose PO SEE INSTRUCTIONS 01/14/18 01/14/18 furosemide 40 mg PO Q OTHER DAY 01/14/18 01/14/18 lovastatin 5 mg PO EVERY OTHER DAY 01/14/18 01/14/18 Previous Rx's Medication Instructions Recorded pioglitazone [Actos] 15 mg PO QDAY #90 tab 08/01/17 glimepiride 2 mg tablet See Label Instructions PO QDAY 09/17/17 #270 tab gabapentin 600 mg tablet See Label Instructions PO TID #180 10/12/17 tab cyclobenzaprine 5 mg tablet 5 mg PO Q8H PRN #20 tab 11/07/17 temazepam 15 mg capsule 0 mg PO HSP #60 cap 11/07/17 levothyroxine 150 mcg capsule 150 mcg PO DAILY #90 cap 11/21/17 oxycodone-acetaminophen 5 mg-325 See Label Instructions .ROUTE 01/04/18 mg tablet .COMPLEX PRN #180 tab Allergies Allergy/AdvReac Type Severity Reaction Status Date / Time amoxicillin [From AUGMENTIN] Allergy Mild RASH Verified 01/14/18 13:44 clavulanic acid Allergy Mild RASH Verified 01/14/18 13:44 [From AUGMENTIN] metformin [METFORMIN] AdvReac Severe SWELLING Verified 01/14/18 13:44 Review of Systems Constitutional Reports weakness Eyes Reports blurry vision Cardiovascular Denies chest pain, Denies irregular heart rhythm, Denies lightheadedness, Denies palpitations, Denies dyspnea, Denies dyspnea on exertion and Denies orthopnea Respiratory Denies cough, Denies dyspnea, Denies dyspnea on exertion and Denies wheezing Gastrointestinal Gastrointestinal: Denies abdominal pain, Denies change in bowel habits, Denies diarrhea, Denies nausea and Denies vomiting Genitourinary Denies hematuria, Denies flank pain, Denies urinary incontinence and Denies urinary urgency Musculoskeletal Comments: Tremors to all 4 extremities Integumentary/Breasts Denies pruritus, Denies erythema, Denies rash and Denies wounds Neurologic Denies confusion and Reports weakness Psychiatric Denies anxiety, Denies confusion, Denies depression, Denies homicidal ideation and Denies suicidal ideation Endocrine Denies palpitations Hematologic/Lymphatic Denies easy bruising Allergic/Immunologic Denies wheezing [facility] Medical History Anemia (Chronic ~2004) Arthritis (Chronic) Chronic back pain (Chronic ~2009) Foot pain (Chronic ~2010) Fractures (Chronic ~2011) Gastric ulcer (Chronic ~1991) Headache (Chronic ~1989) History of irregular menstrual cycles (Chronic ~1989) Hyperthyroidism (Chronic ~2004) Lupus (Chronic ~1999) Migraines (Chronic ~1989) Neuropathy (Chronic ~2008) Ovarian cyst (Chronic ~1999) Painful menstrual periods (Chronic ~1978) Restless leg syndrome (Chronic ~1989) Chicken pox (Resolved) Measles (Resolved) Mumps (Resolved) Surgical History Gastric bypass status for obesity (Acute) H/O hernia repair (Acute) S/P foot surgery, right (Acute) Social History marital status: household members: spouse Smoking Status: Never smoker alcohol intake: never substance use type: does not use Exam Initial Vital Signs Initial Vital Signs: Vital Signs Temperature 98.9 F 01/14/18 13:39 Pulse Rate 107 H 01/14/18 13:39 Respiratory Rate 18 01/14/18 13:39 Blood Pressure 120/81 01/14/18 13:39 Pulse Oximetry 98 01/14/18 13:39 Const General: cooperative and well developed Nutritional Appearance: well nourished Orientation: alert, awake, oriented x3 and not confused HENMT Head: normal to inspection, normocephalic and atraumatic Mouth: oral mucosae normal and oropharynx normal Teeth and gingiva: caries and other (Dental caries and tenderness to left upper molars not new. No induration no fluctuance) Throat: posterior oropharynx normal Eyes Eyelids: eyelids normal Conjunctivae: conjunctivae normal Sclera: sclerae normal Pupils: PERRL EOM: EOM intact bilaterally and nystagmus Other: Nystagmus bilateral Neck Neck: normal visual inspection, trachea midline, No lymphadenopathy, No midline deformity and No JVD Lymphatic: No lymphedema Resp Effort & Inspection: normal respiratory effort, able to speak in complete sentences, no respiratory distress and no use of accessory muscles Auscultation: clear to auscultation bilaterally, no rales, no rhonchi and no wheezes Cardio Rate: regular rate Rhythm: regular rhythm Heart Sounds: no click, no gallops, no murmurs and no rubs Pulses: normal peripheral pulses GI Inspection: non-distended Palpation: soft, no hepatosplenomegaly, No guarding, No pulsatile mass and No tender Auscultation: normal bowel sounds General: No CVA tenderness Skin General: no rashes or lesions noted, No jaundice and No petechiae Neuro General: awake, oriented x3 and CN's II-XI intact bilaterally Cranial Nerves: nystagmus Cognition: normal cognition Speech: speech normal Motor: tremor (Tremors all 4 extremities) Scores ABCD2 Age >= 60 years: yes Initial BP. Either SBP >= 140 or DBP >= 90.: yes Clinical features of the TIA: other symptoms Duration of symptoms: >= 60 minutes History of diabetes: yes ABCD2 Score: 5 NIH Stroke Scale Level of Conciousness: Alert, keenly responsive Ask month/age: Answers both questions correctly. Open/close eyes, close hand: Performs both tasks correctly Best gaze horizontal: Normal Visual ward: No visual loss Facial palsy: Normal symetrical movement Left arm drift: No drift for full 10 sec Right arm drift: No drift for full 10 sec Left leg drift: No drift for full 10 sec Right leg drift: No drift for full 10 sec Limb ataxia: Absent Sensory on face/arms/legs: Normal, no sensory loss Best language: No aphasia, normal Dysarthria: Normal Extinction or inattention: No abnormality Total NIH Stroke scale score: 0 Course Orders Ordered: ED Orders 01/14/18 14:10 Blood Culture Stat Complete Blood Count AUTO DIFF Stat Comprehensive Metabolic Panel Stat Lactate (Lactic Acid) Stat Lipase Stat Partial Thromboplastin Time Stat Procalcitonin Stat Prothrombin Time INR Stat TSH [Thyroid Stimulating Hormone] Stat Troponin I Stat 01/14/18 14:21 XR chest 1V Stat 01/14/18 14:27 CT angio head and neck Stat 01/14/18 14:30 Urine Culture Stat Urine Microscopic Stat 01/14/18 14:35 CT head/brain wo con Stat 01/14/18 17:29 Education, smoking cessation ONGOING 01/15/18 Free T4 Free Thyroxine Routine Triiodothyronine T3 Free Routine 01/15/18 06:00 Basic Metabolic Panel DAILY Complete Blood Count AUTO DIFF DAILY 01/16/18 06:00 Complete Blood Count AUTO DIFF DAILY Carbidopa/Levodopa (Sinemet Er 50-200 Tab) 1 each PO TID [facility] Last Admin: 01/14/18 20:30 Dose: 1 each Gabapentin (Neurontin) 600 mg PO TID FRANCINE Last Admin: 01/14/18 20:30 Dose: 600 mg Levothyroxine Sodium (Synthroid) 150 mcg PO 0600 [facility] Oxycodone/Acetaminophen (Percocet 5/325) 2 tab PO Q4HR PRN PRN Reason: Pain, Severe (7-10) Last Admin: 01/14/18 20:29 Dose: 2 tab Temazepam (Resoril) 30 mg PO BEDTIME PRN PRN Reason: Sleep Last Admin: 01/14/18 20:30 Dose: 30 mg Discontinued Medications Acetaminophen (Tylenol) 650 mg PO NOW ONE Stop: 01/14/18 14:24 Last Admin: 01/14/18 14:29 Dose: 650 mg Carbidopa/Levodopa (Sinemet Er 50-200 Tab) 1 each PO TID FRANCINE Enoxaparin Sodium (Lovenox) 40 mg SUBCUT DAILY FRANCINE Sodium Chloride (Normal Saline 0.9%) 1,000 mls @ 1,000 mls/hr IV BOLUS ONE Stop: 01/14/18 15:20 Last Infusion: 01/14/18 16:56 Dose: 0 mls/hr Admin: 01/14/18 14:26 Dose: 1,000 mls/hr Levofloxacin (Levaquin) 750 mg in 150 mls @ 100 mls/hr IV NOW ONE Stop: 01/14/18 17:59 Last Infusion: 01/14/18 18:22 Dose: 0 mls/hr Admin: 01/14/18 17:07 Dose: 100 mls/hr Ceftriaxone Sodium/Dextrose (Rocephin) 1 gm in 50 mls @ 100 mls/hr IV NOW ONE Stop: 01/14/18 16:59 Last Infusion: 01/14/18 18:08 Dose: 0 mls/hr Admin: 01/14/18 17:06 Dose: 100 mls/hr Sodium Chloride (Normal Saline 0.9%) 1,000 mls @ 125 mls/hr IV CONT FRANCINE Last Infusion: 01/14/18 18:44 Dose: 125 mls/hr Infusion: 01/14/18 18:21 Dose: 0 mls/hr Admin: 01/14/18 17:07 Dose: 125 mls/hr Ceftriaxone Sodium/Dextrose (Rocephin) 1 gm in 50 mls @ 100 mls/hr IV Q12H FRANCINE Levofloxacin (Levaquin) 500 mg in 100 mls @ 100 mls/hr IV Q24H FRANCINE Ondansetron HCl (Zofran) 4 mg IV Q4HR PRN PRN Reason: Nausea And Vomiting Last Admin: 01/14/18 17:07 Dose: 4 mg Oxycodone/Acetaminophen (Percocet 5/325) 1 tab PO Q4HR PRN PRN Reason: Pain, Mild (1-3) Last Admin: 01/14/18 17:07 Dose: 1 tab Oxycodone/Acetaminophen (Percocet 5/325) 1 tab PO NOW ONE Stop: 01/14/18 16:56 Last Admin: 01/14/18 18:45 Dose: Not Given Oxycodone/Acetaminophen (Percocet 5/325) 2 tab PO Q4HR PRN PRN Reason: Pain, Severe (7-10) Oxycodone/Acetaminophen (Percocet 5/325) 2 tab PO Q4HR PRN PRN Reason: Pain, Severe (7-10) Temazepam (Resoril) 15 mg PO BEDTIME PRN PRN Reason: Sleep Vital Signs - 8 hr 01/14/18 13:54 01/14/18 14:11 01/14/18 14:29 Temperature 101.2 F H 101.8 F H Pulse Rate 102 H 102 H Respiratory Rate 14 19 Blood Pressure Blood Pressure [Left Arm] 146/69 H 146/69 H Pulse Oximetry 96 96 01/14/18 15:06 01/14/18 15:25 01/14/18 15:31 Temperature 100 F H 100 F H Pulse Rate 96 H Respiratory Rate 19 Blood Pressure Blood Pressure [Left Arm] 124/57 L Pulse Oximetry 98 01/14/18 15:39 01/14/18 16:13 01/14/18 17:00 Temperature Pulse Rate 100 H 97 H 97 H Respiratory Rate 19 21 17 Blood Pressure Blood Pressure [Left Arm] 134/61 144/54 H 144/54 H Pulse Oximetry 99 97 01/14/18 18:17 01/14/18 18:18 01/14/18 18:36 Temperature Pulse Rate 99 H 99 H Respiratory Rate 17 17 18 Blood Pressure 162/56 H 134/68 Blood Pressure [Left Arm] 162/56 H Pulse Oximetry 99 99 99 01/14/18 18:39 01/14/18 19:02 01/14/18 19:36 Temperature 98.7 F 98.1 F Pulse Rate 98 H Respiratory Rate 16 Blood Pressure 144/81 H Blood Pressure [Left Arm] Pulse Oximetry 99 98 MDM - Weakness Lab Data Result diagrams: 01/14/18 14:10 01/14/18 14:10 Lab Results 01/14/18 01/14/18 01/14/18 Range/Units 14:10 14:10 14:10 WBC 10.8 (4.5-11.0) X10^3/uL RBC 4.16 (4.0-5.2) X10^6/uL Hgb 10.1 L (12.0-16.0) g/dL Hct 31.5 L (36-46) % MCV 75.7 L (80-100) fL MCH 24.2 L (26-34) PG MCHC 31.9 (30-36) % RDW 21.3 H (11.6-14.8) % Plt Count 216 (150-400) X10^3/uL Neut % (Auto) 72.9 (50-75) % Lymph % (Auto) 16.5 L (25-40) % [place] % (Auto) 9.2 (3-14) % Eos % (Auto) 0.9 L (2-4) % Baso % (Auto) 0.5 (0-2) % Neut # (Auto) 7900 H (3425-6145) /uL Hypersegmented Neuts 1+ RBC Morphology Not Reportable Poikilocytosis 1+ H Anisocytosis 1+ H PT 12.9 H (10.1-12.7) SECONDS INR 1.2 (0.9-1.3) APTT 30 (26.4-36.2) SECONDS Sodium (137-145) mmol/L Potassium (3.4-5.1) mmol/L Chloride (98-107) mmol/L Carbon Dioxide (22-32) mmol/L BUN (7-17) mg/dL Creatinine (0.52-1.04) mg/dL Estimated GFR (>60) mL/min BUN/Creatinine Ratio (6-22) Glucose (80-110) mg/dL Lactate (0.7-2.1) mmol/L Calcium (8.4-10.2) mg/dL Total Bilirubin (0.2-1.3) mg/dL AST (14-36) IU/L ALT (9-52) IU/L Alkaline Phosphatase (38-126) U/L Troponin I (0.01-0.034) ng/mL Total Protein (6.3-8.2) g/dL Albumin (3.5-5.0) g/dL Globulin (1.7-4.1) g/dL Albumin/Globulin Ratio (1.0-2.8) Lipase (23-300) U/L Procalcitonin 0.05 (<0.5) ng/mL TSH (0.47-4.68) uIU/mL Urine RBC (0-5/HPF) Urine WBC (0-5/HPF) Ur Squamous Epith Cells Ur Transition Epith Cell (0-5/HPF) Urine Bacteria (None) Ur Culture Indicated? Micro UA Comment 01/14/18 01/14/18 01/14/18 Range/Units 14:10 14:10 14:10 WBC (4.5-11.0) X10^3/uL RBC (4.0-5.2) X10^6/uL Hgb (12.0-16.0) g/dL Hct (36-46) % MCV (80-100) fL MCH (26-34) PG MCHC (30-36) % RDW (11.6-14.8) % Plt Count (150-400) X10^3/uL Neut % (Auto) (50-75) % Lymph % (Auto) (25-40) % [place] % (Auto) (3-14) % Eos % (Auto) (2-4) % Baso % (Auto) (0-2) % Neut # (Auto) (1098-0363) /uL Hypersegmented Neuts RBC Morphology Poikilocytosis Anisocytosis PT (10.1-12.7) SECONDS INR (0.9-1.3) APTT (26.4-36.2) SECONDS Sodium 141 (137-145) mmol/L Potassium 4.8 (3.4-5.1) mmol/L Chloride 110 H (98-107) mmol/L Carbon Dioxide 22 (22-32) mmol/L BUN 14 (7-17) mg/dL Creatinine 0.70 (0.52-1.04) mg/dL Estimated GFR > 60.0 (>60) mL/min BUN/Creatinine Ratio 20.0 (6-22) Glucose 165 H (80-110) mg/dL Lactate 1.5 (0.7-2.1) mmol/L Calcium 9.4 (8.4-10.2) mg/dL Total Bilirubin 0.5 (0.2-1.3) mg/dL AST 29 (14-36) IU/L ALT 16 (9-52) IU/L Alkaline Phosphatase 65 (38-126) U/L Troponin I < 0.012 Cancelled (0.01-0.034) ng/mL Total Protein 7.0 (6.3-8.2) g/dL Albumin 3.9 (3.5-5.0) g/dL Globulin 3.1 (1.7-4.1) g/dL Albumin/Globulin Ratio 1.3 (1.0-2.8) Lipase 25 (23-300) U/L Procalcitonin (<0.5) ng/mL TSH (0.47-4.68) uIU/mL Urine RBC (0-5/HPF) Urine WBC (0-5/HPF) Ur Squamous Epith Cells Ur Transition Epith Cell (0-5/HPF) Urine Bacteria (None) Ur Culture Indicated? Micro UA Comment 01/14/18 01/14/18 Range/Units 14:10 14:30 WBC (4.5-11.0) X10^3/uL RBC (4.0-5.2) X10^6/uL Hgb (12.0-16.0) g/dL Hct (36-46) % MCV (80-100) fL MCH (26-34) PG MCHC (30-36) % RDW (11.6-14.8) % Plt Count (150-400) X10^3/uL Neut % (Auto) (50-75) % Lymph % (Auto) (25-40) % [place] % (Auto) (3-14) % Eos % (Auto) (2-4) % Baso % (Auto) (0-2) % Neut # (Auto) (1748-7758) /uL Hypersegmented Neuts RBC Morphology Poikilocytosis Anisocytosis PT (10.1-12.7) SECONDS INR (0.9-1.3) APTT (26.4-36.2) SECONDS Sodium (137-145) mmol/L Potassium (3.4-5.1) mmol/L Chloride (98-107) mmol/L Carbon Dioxide (22-32) mmol/L BUN (7-17) mg/dL Creatinine (0.52-1.04) mg/dL Estimated GFR (>60) mL/min BUN/Creatinine Ratio (6-22) Glucose (80-110) mg/dL Lactate (0.7-2.1) mmol/L Calcium (8.4-10.2) mg/dL Total Bilirubin (0.2-1.3) mg/dL AST (14-36) IU/L ALT (9-52) IU/L Alkaline Phosphatase (38-126) U/L Troponin I (0.01-0.034) ng/mL Total Protein (6.3-8.2) g/dL Albumin (3.5-5.0) g/dL Globulin (1.7-4.1) g/dL Albumin/Globulin Ratio (1.0-2.8) Lipase (23-300) U/L Procalcitonin (<0.5) ng/mL TSH 0.16 L (0.47-4.68) uIU/mL Urine RBC None seen (0-5/HPF) Urine WBC 1-5/hpf (0-5/HPF) Ur Squamous Epith Cells None seen Ur Transition Epith Cell 0-1/hpf (0-5/HPF) Urine Bacteria Many (>30) H (None) Ur Culture Indicated? Specimen cultured Micro UA Comment Not Reportable Point of Care Testing Glucose POC 238 Urine Dip Bedside Urine Glucose Negative Bedside Urine Bilirubin - Negative Bedside Urine Ketone - Negative Urine Specific [place] 1.015 Bedside Urine Occult Blood - Negative Bedside Urine pH 6.0 Bedside Urine Protein - Negative Bedside Urine Urobilinogen - Negative Bedside Urine Nitrite + Positive Bedside Urine Leukocytes +/- [address] scan - head: Radiologist's impression: [address] [address] XRay Report Signed Patient: Caitlin Howell JMR#: [id number] : 02/22/1980Acct:[id number] Age/Sex: 37 / FDate of Service: 01/14/18 Loc: ED Accession Number: [id number] Procedure: XR chest 1V Ordering Provider: Brandon Andino PROCEDURE: XR CHEST 1V INDICATIONS: Chest pain TECHNIQUE: One view of the chest was acquired. COMPARISON: [facility], CHEST 1 VIEW, 08/11/2016, 7:44. FINDINGS: Surgical changes and devices: None. Lungs and pleura: No pleural effusions or pneumothorax. Lungs are clear. Mediastinum: Mediastinal contours appear normal. Heart size is normal. Bones and chest wall: No suspicious bony lesions. Overlying soft tissues appear unremarkable. IMPRESSION: Stable chest. No acute cardiopulmonary process is evident. Dictated by: Marcelino Brunner M.D. on 01/14/2018 at 12:54 Approved by: Marcelino Brunner M.D. on 01/14/2018 at 12:54 Chest x-ray: Radiologist's impression: [address] [address] XRay Report Signed Patient: Veronique Gould LMR#: [id number] : 7Acct:[id number] Age/Sex: 72 / FDate of Service: 01/14/18 Loc: ED Accession Number: [id number] Procedure: XR chest 1V Ordering Provider: Brandon Andino PROCEDURE: XR CHEST 1V INDICATIONS: suspected sepsis TECHNIQUE: One view of the chest was acquired. COMPARISON: [facility] , XR CHEST 1V, 12/31/2017, 11:56. FINDINGS: Surgical changes and devices: The Lungs and pleura: No pleural effusions or pneumothorax. Lungs are clear. Mild elevation of the right diaphragm is similar to prior studies. Mediastinum: Mediastinal contours appear normal. Heart size is normal. Bones and chest wall: No suspicious bony lesions. Overlying soft tissues appear unremarkable. IMPRESSION: Stable chest. No acute cardiopulmonary process is evident. Dictated by: Marcelino Brunner M.D. on 01/14/2018 at 14:35 Approved by: Marcelino Brunner M.D. on 01/14/2018 at 14:40 CTA head and neck : Radiologist's impression: [address] [address] [address] Scan Report Signed Patient: Veronique Gould LMR#: [id number] : 7Acct:[id number] Age/Sex: 72 / FDate of Service: 01/14/18 Loc: ED Accession Number: [id number] Procedure: CT angio head and neck Ordering Provider: Brandon Andino PROCEDURE: CT ANGIO HEAD AND NECK INDICATIONS: Weakness headache and bilateral peripheral tremors TECHNIQUE: Pre-contrast 4.5 mm thick sections acquired from the foramen magnum to the vertex. After the administration of intravenous contrast, 1 mm thick sections acquired from the aortic arch through the [place] of [place]. Post-contrast 4.5 mm thick sections then re-acquired from the foramen magnum to the vertex. 3-dimensional vlmzklm-jmamlcwfi-rssndnygln (MIP) and/or volume rendering reformats were acquired of the central intracranial vasculature and neck separately. COMPARISON: [facility], CT, CT HEAD/BRAIN WO CON, 01/14/2018, 14:34. FINDINGS: Image quality: Limited by patient motion. BRAIN: CSF spaces: Ventricles are normal in size and shape. Basal cisterns are patent. No extra-axial fluid collections. Brain: No midline shift. No intracranial bleeds or masses. Reyes-white matter interface appears intact. Skull and face: Calvarium and facial bones appear intact, without suspicious lesions. Orbits appear normal. Sinuses: Sinuses and mastoids are clear. HEAD CT ANGIOGRAPHY: Anterior circulation: Intracranial internal carotid arteries are normal in flow. Dense atherosclerotic stations noted in the cavernous segments of the internal carotid arteries which cause multifocal moderate and high grade stenoses. The flow within the paired anterior cerebral arteries is normal and symmetric. The flow within the middle cerebral arteries is normal and symmetric. The anterior communicating artery is seen. No aneurysms are seen. Posterior circulation: Visualized portions of the vertebral arteries demonstrate normal caliber, and join to form a normal appearing basilar artery. Flow within the posterior cerebral arteries is normal and symmetric. No aneurysms are seen. Dural sinuses demonstrate normal postcontrast enhancement. NECK CT ANGIOGRAPHY: Carotid system: The great vessels demonstrate a conventional anatomy as they arise from the aortic arch. The origins of the common carotid arteries appear patent. The common carotid arteries demonstrate normal caliber and courses. Atherosclerotic calcification noted in the origin of the right internal carotid artery which causes less than 50% stenosis of the vessel. Origin of the left internal carotid artery is fully patent. Posterior circulation: The origins of the vertebral arteries both appear widely patent. The more superior extracranial portions of both vertebral arteries also demonstrate normal courses and calibers. They join to form a normal appearing basilar artery. Soft tissues: Visualized neck soft tissues demonstrate no suspicious abnormalities. Bones: No suspicious bony lesions. Spine degenerative disc disease and facet arthropathy. Status post C3-C4 ACDF. Visualized cervical spine appears normally aligned. IMPRESSION: 1. No large vessel occlusion. 2. Multifocal moderate and high grade atherosclerotic stenoses involving the cavernous segments of the internal carotid arteries bilaterally. 3. Less than 50% atherosclerotic stenosis of the origin of the right internal carotid artery. 4. Vertebral arteries appear fully patent. 5. No acute intracranial disease process. Any quantitative measurements of stenosis were performed using NASCET criteria. Dictated by: Tasha Calvillo MD, PhD on 01/14/2018 at 16:08 Approved by: Tasha Calvillo MD, PhD on 01/14/2018 at 16:18 ECG Data Interpretation: EKG shows sinus tachycardia with no ST elevation or depression. No ectopy. Ventricular rate of 102. Para 135. QRS duration of 87. QT 337. MDM Narrative Medical decision making narrative: CT of the head was obtained and was negative for any acute findings. CTA of head and neck were obtained and shows 50% stenosis to the right internal carotid otherwise no acute findings. Chest x-ray was obtained was negative for any acute findings. EKG shows sinus tachycardia. No ST elevation or depression. CBC was obtained and shows mildAnemia however is consistent with her prior lab values. Chemistry panel was obtained and was unremarkable. Troponin was obtained was negative. TSH was low at 0.16. Urinalysis showed nitrates leuko esterase and bacteria in the urine white count in the urine was 1-5. Will treat for urinary tract infection with Levaquin and Rocephin IV. No current etiology identified for her symptoms. Discussed case with Dr. Zurita her primary care provider but admission for observation. Patient is admitted for observation and further treatment. Discharge Plan Departure Patient Disposition: Admitted As Inpatient Clinical Impression: UTI (urinary tract infection), Generalized weakness Discharge Date/Time: 01/14/18 18:19 Interventions: ED Discharge Assessment Last Done: 01/14/18 18:18 Admit Date/Time: 01/14/18 17:07 Admit Provider: Corby Zurita
--- NOTE | 2018-01-14 14:21 | DI.RAD.S_ITS ---
PROCEDURE: XR CHEST 1V INDICATIONS: suspected sepsis TECHNIQUE: One view of the chest was acquired. COMPARISON: [facility], , XR CHEST 1V, 12/31/2017, 11:56. FINDINGS: Surgical changes and devices: The Lungs and pleura: No pleural effusions or pneumothorax. Lungs are clear. Mild elevation of the right diaphragm is similar to prior studies. Mediastinum: Mediastinal contours appear normal. Heart size is normal. Bones and chest wall: No suspicious bony lesions. Overlying soft tissues appear unremarkable. IMPRESSION: Stable chest. No acute cardiopulmonary process is evident. Dictated by: Marcelino Brunner M.D. on 01/14/2018 at 14:35 Approved by: Marcelino Brunner M.D. on 01/14/2018 at 14:40
[2018-01-14] MEDS: SODIUM CHLORIDE 0.9% 1,000 ML 1000 ML IV (14:26)
--- NOTE | 2018-01-14 14:27 | DI.CT.S_ITS ---
PROCEDURE: CT ANGIO HEAD AND NECK INDICATIONS: Weakness headache and bilateral peripheral tremors TECHNIQUE: Pre-contrast 4.5 mm thick sections acquired from the foramen magnum to the vertex. After the administration of intravenous contrast, 1 mm thick sections acquired from the aortic arch through the [place]. Post-contrast 4.5 mm thick sections then re-acquired from the foramen magnum to the vertex. 3-dimensional qdsrvnv-kqnadygrw-mqqixzqqxn (MIP) and/or volume rendering reformats were acquired of the central intracranial vasculature and neck separately. COMPARISON: [facility], CT, CT HEAD/BRAIN WO CON, 01/14/2018, 14:34. FINDINGS: Image quality: Limited by patient motion. BRAIN: CSF spaces: Ventricles are normal in size and shape. Basal cisterns are patent. No extra-axial fluid collections. Brain: No midline shift. No intracranial bleeds or masses. Reyes-white matter interface appears intact. Skull and face: Calvarium and facial bones appear intact, without suspicious lesions. Orbits appear normal. Sinuses: Sinuses and mastoids are clear. HEAD CT ANGIOGRAPHY: Anterior circulation: Intracranial internal carotid arteries are normal in flow. Dense atherosclerotic stations noted in the cavernous segments of the internal carotid arteries which cause multifocal moderate and high grade stenoses. The flow within the paired anterior cerebral arteries is normal and symmetric. The flow within the middle cerebral arteries is normal and symmetric. The anterior communicating artery is seen. No aneurysms are seen. Posterior circulation: Visualized portions of the vertebral arteries demonstrate normal caliber, and join to form a normal appearing basilar artery. Flow within the posterior cerebral arteries is normal and symmetric. No aneurysms are seen. Dural sinuses demonstrate normal postcontrast enhancement. NECK CT ANGIOGRAPHY: Carotid system: The great vessels demonstrate a conventional anatomy as they arise from the aortic arch. The origins of the common carotid arteries appear patent. The common carotid arteries demonstrate normal caliber and courses. Atherosclerotic calcification noted in the origin of the right internal carotid artery which causes less than 50% stenosis of the vessel. Origin of the left internal carotid artery is fully patent. Posterior circulation: The origins of the vertebral arteries both appear widely patent. The more superior extracranial portions of both vertebral arteries also demonstrate normal courses and calibers. They join to form a normal appearing basilar artery. Soft tissues: Visualized neck soft tissues demonstrate no suspicious abnormalities. Bones: No suspicious bony lesions. Spine degenerative disc disease and facet arthropathy. Status post C3-C4 ACDF. Visualized cervical spine appears normally aligned. IMPRESSION: 1. No large vessel occlusion. 2. Multifocal moderate and high grade atherosclerotic stenoses involving the cavernous segments of the internal carotid arteries bilaterally. 3. Less than 50% atherosclerotic stenosis of the origin of the right internal carotid artery. 4. Vertebral arteries appear fully patent. 5. No acute intracranial disease process. Any quantitative measurements of stenosis were performed using NASCET criteria. Dictated by: Tasha Calvillo MD, PhD on 01/14/2018 at 16:08 Approved by: Tasha Calvillo MD, PhD on 01/14/2018 at 16:18
[2018-01-14] MEDS: ACETAMINOPHEN 325 MG TABLET 650 MG PO (14:29)
[2018-01-14 14:33] LABS: Add Manual Diff / Slide Review NO; Basophils Percent Auto 0.5 % (0-2); Eosinophils Percent Auto 0.9 % (2-4); Hematocrit 31.5 % (36-46); Hemoglobin 10.1 g/dL (12.0-16.0); Lymphocytes Percent Auto 16.5 % (25-40); Mean Corpuscular HGB Conc 31.9 % (30-36); Mean Corpuscular Hemoglobin 24.2 PG (26-34); Mean Corpuscular Volume 75.7 fL (80-100); Monocytes Percent Auto 9.2 % (3-14); Neutrophils Absolute Auto 7900 /uL (3000-5900); Neutrophils Percent Auto 72.9 % (50-75); Platelet Count 216 X10^3/uL (150-400); Red Blood Cell Count 4.16 X10^6/uL (4.0-5.2); Red Cell Distribution Width 21.3 % (11.6-14.8); White Blood Cell Count 10.8 X10^3/uL (4.5-11.0)
[2018-01-14 14:35] LABS: INR 1.2 (0.9-1.3); Prothrombin Time 12.9 SECONDS (10.1-12.7)
--- NOTE | 2018-01-14 14:35 | DI.CT.S_ITS ---
PROCEDURE: CT HEAD/BRAIN WO CON INDICATIONS: Headache tremors and visual changes TECHNIQUE: Noncontrast 4.5 mm thick angled axial sections acquired from the foramen magnum to the vertex, with coronal and sagittal reformats. For radiation dose reduction, the following was used: automated exposure control, adjustment of mA and/or kV according to patient size. COMPARISON: [facility], CT, HEAD WITHOUT CONTRAST, 05/04/2011, 1:39. FINDINGS: Image quality: Excellent. CSF spaces: Basal cisterns are patent. No extra-axial fluid collections. The ventricles are symmetric in size and shape. Brain: No intracranial bleeds or masses. There is cerebral volume loss for age, with resultant ventricular and sulcal prominence. There are periventricular and deep white matter chronic small vessel ischemic changes. There is intracranial internal carotid artery atherosclerosis. Skull and face: Calvarium and visualized facial bones appear intact, without suspicious lesions. Sinuses: Visualized sinuses and mastoids are clear. IMPRESSION: 1. No acute intracranial process. 2. Mild to moderate atrophy and chronic microvascular ischemic changes. Dictated by: Yu Gimenez M.D. on 01/14/2018 at 14:54 Approved by: Yu Gimenez M.D. on 01/14/2018 at 14:55
[2018-01-14 14:37] LABS: PTT Partial Thromboplastin Tim 30 SECONDS (26.4-36.2)
[2018-01-14 14:39] LABS: Alanine Aminotransferase 16 IU/L (9-52); Albumin 3.9 g/dL (3.5-5.0); Albumin Globulin Ratio 1.3 (1.0-2.8); Alkaline Phosphatase 65 U/L (38-126); Aspartate Aminotransferase 29 IU/L (14-36); Bilirubin Total 0.5 mg/dL (0.2-1.3); Blood Urea Nitrogen 14 mg/dL (7-17); Calcium 9.4 mg/dL (8.4-10.2); Carbon Dioxide 22 mmol/L (22-32); Chloride 110 mmol/L (98-107); Estimated Glomerular Filt Rate > 60.0 mL/min (>60); Globulin 3.1 g/dL (1.7-4.1); Glucose 165 mg/dL (80-110); Lipase 25 U/L (23-300); Potassium 4.8 mmol/L (3.4-5.1); Sodium 141 mmol/L (137-145)
[2018-01-14 14:40] LABS: Lactate (Lactic Acid) 1.5 mmol/L (0.7-2.1)
--- NOTE | 2018-01-14 14:43 | PC.NURSE ---
Patient also reports pain to elft upper tooth, has appointment for this this week with dentist.
[2018-01-14 14:46] LABS: HEMOLYSIS 69 (0-50)
[2018-01-14 14:50] LABS: RBC Urine None Seen (0-5/HPF)
[2018-01-14 14:51] LABS: Anisocytosis 1+; Hypersegmented Neutrophils 1+; Poikilocytosis 1+; Troponin I < 0.012 ng/mL (0.01-0.034)
[2018-01-14 14:58] LABS: Bacteria Urine Many (>30); Culture Indicated Urine Specimen Cultured; Squamous Epithelial Cell Urine None Seen; Transitional Epi Cells Urine 0-1/HPF (0-5/HPF); WBC Urine 1-5/HPF (0-5/HPF)
[2018-01-14 14:59] LABS: Procalcitonin 0.05 ng/mL (<0.5)
[2018-01-14 15:10] LABS: Thyroid Stimulating Hormone 0.16 uIU/mL (0.47-4.68)
[2018-01-14] MEDS: CEFTRIAXONE 1 GM/50 ML FROZ.PIGGY IV (17:06)
[2018-01-14] MEDS: SODIUM CHLORIDE 0.9% 1,000 ML 125 ML IV (17:07)
[2018-01-14] MEDS: OXYCODONE/ACETAMINOPHEN 5/325 TABLET 1 TAB PO (17:07)
[2018-01-14] MEDS: ONDANSETRON 4 MG/2 ML INJ IV (17:07)
[2018-01-14] MEDS: levoFLOXacin 750 MG/150 ML PIGGYBACK 100 MG IV (17:07)
--- NOTE | 2018-01-14 17:24 | PC.NURSE ---
Patient given dinner tray and cranberry juice
--- NOTE | 2018-01-14 17:46 | PC.NURSE ---
I attempted to call report at this time, no answer. Will call back.
--- NOTE | 2018-01-14 18:10 | PC.NURSE ---
site infiltrated, redness and swelling. IV Dc'd and warm compress applied.
--- NOTE | 2018-01-14 18:50 | PC.NURSE ---
Patient is a&ox4, demonstrates she is able to ambulate safely SBA with a walker to BR. 99% on RA, rates her pain 8/10. Patient denies nausea, SOB and dizziness. Patient's skin is intact. Patient states she has baseline numbness to BLE. IVF are infusing as ordered. Patient states she normally takes two tablet of percocet at home for chronic back pain. Patient voided successfully in BR. Patient states she almost fell three times this AM while ambulating at home with her walker; her walker is what prevented her from falling. Patient states she would like the flu vaccine this hospital stay. Patient has been oriented to room and call light, states she understands not to get up by herself, to call for assistance if she needs anything. Will continue to monitor.
[2018-01-14] MEDS: OXYCODONE/ACETAMINOPHEN 5/325 TABLET 2 TAB PO (20:29)
[2018-01-14] MEDS: GABAPENTIN 600 MG TABLET PO (20:30)
[2018-01-14] MEDS: TEMAZEPAM 15 MG CAPSULE 30 MG PO (20:30)
[2018-01-14] MEDS: CARBIDOPA-LEVODOPA ER 50/200 TABLET 1 EACH PO (20:30)
[2018-01-15] MEDS: OXYCODONE/ACETAMINOPHEN 5/325 TABLET 2 TAB PO ×3 (00:41→09:40)
[2018-01-15 04:19] VITALS: BP 105/58; PULSE 77; RESP 16; TEMP 36.6; O2SAT 97
[2018-01-15] MEDS: LEVOTHYROXINE 150 MCG TABLET PO (05:13)
[2018-01-15 05:50] LABS: Add Manual Diff / Slide Review NO; Basophils Percent Auto 0.4 % (0-2); Eosinophils Percent Auto 1.6 % (2-4); Hematocrit 27.6 % (36-46); Hemoglobin 8.7 g/dL (12.0-16.0); Lymphocytes Percent Auto 24.9 % (25-40); Mean Corpuscular HGB Conc 31.5 % (30-36); Mean Corpuscular Hemoglobin 24.4 PG (26-34); Mean Corpuscular Volume 77.5 fL (80-100); Monocytes Percent Auto 15.1 % (3-14); Neutrophils Absolute Auto 4500 /uL (3000-5900); Platelet Count 155 X10^3/uL (150-400); Red Blood Cell Count 3.56 X10^6/uL (4.0-5.2); Red Cell Distribution Width 21.4 % (11.6-14.8); White Blood Cell Count 7.8 X10^3/uL (4.5-11.0)
[2018-01-15 05:57] LABS: Blood Urea Nitrogen 12 mg/dL (7-17); Calcium 8.6 mg/dL (8.4-10.2); Carbon Dioxide 22 mmol/L (22-32); Chloride 113 mmol/L (98-107); Estimated Glomerular Filt Rate > 60.0 mL/min (>60); Glucose 164 mg/dL (80-110); HEMOLYSIS < 15 (0-50); Potassium 4.1 mmol/L (3.4-5.1); Sodium 144 mmol/L (137-145)
--- NOTE | 2018-01-15 07:02 | PM.HP.1 ---
History of Present Illness Date Patient Seen: 01/14/18 Time Patient Seen: 18:02 Chief complaint: 'almost fallen twice today' Narrative: Generalized weakness The patient came to [facility] emergency room that afternoon on Sunday. She had been feeling poorly for approximately 2 days. But the caused her to pursue that at that time was that she was feeling weak having chills and had stumbled. She normally ambulates with a walker and she was with a walker at that time but stumbled and she thought she would have fallen as she has not had a walker. She has been ambulatory with a walker doing reasonably well with this until recently. Yesterday she had feeling poorly she thinks she may have had a fever but unclear. Just generally felt weaker. She has had no dysuria pyuria hematuria no chest pain no shortness of breath no palpitations presented today because of weakness and generally feeling poorly. She was evaluated in the emergency room impression through the emergency room was he has urinary tract infection and perhaps dehydrated and was admitted for observation status for 1 or 2 nights for clarification of symptoms as well as observation for deterioration. . Patient is on a multitude of medications she has a long history of a chronic pain. She has long history of chronic back pain. Is seeing orthopedic surgeons as well as pain management. Currently is being evaluated by Dr. Grossman at [facility] for epidural steroid injections as well as injections into her greater trochanteric bursa. The patient has had back surgery in the past by Dr. sarabia has had fusion has had laminectomies got postop wound infection all these have stabilized but continues to have chronic back pain Additionally she has a chronic peripheral neuropathy the compromises her ambulation She has a history of diagnosis of discoid lupus being followed by Dermatology and [place] details of that are unknown History of gastric bypass surgery in the distant past for obesity. Back diagnoses include spondylolisthesis, spinal stenosis degenerative joint disease status post laminectomy and fusion as stated. Has a history of diabetes mellitus on 2 medications for same. Has developed a neuropathy from this. On medication for this. Additionally has a history of hypothyroidism and being treated for same Patient History Medical History Chronic back pain (Chronic ~2009) Neuropathy (Chronic ~2008) Headache (Chronic ~1989) Migraines (Chronic ~1989) Restless leg syndrome (Chronic ~1989) Lupus (Chronic ~1999) Arthritis (Chronic) Anemia (Chronic ~2004) Foot pain (Chronic ~2010) Fractures (Chronic ~2011) Gastric ulcer (Chronic ~1991) History of irregular menstrual cycles (Chronic ~1989) Hyperthyroidism (Chronic ~2004) Ovarian cyst (Chronic ~1999) Painful menstrual periods (Chronic ~1978) Chicken pox (Resolved) Measles (Resolved) Mumps (Resolved) Surgical History Gastric bypass status for obesity (Acute) H/O hernia repair (Acute) S/P foot surgery, right (Acute) Family & Social History Family History: Reviewed 01/15/18 by Corby Zurita MD Social History: household members spouse Prior Living Arrangements House Safety & Behavioral: Feels Safe in Current Yes Environment Been Physically Hurt or No Threatened By a Person Suicidal Ideation Description None Suicide Plan Description No Plan Tobacco & Substance use: Smoking Status Never smoker alcohol intake never alcohol intake frequency other Substance Use Type does not use Meds Home Medications Medication Instructions Recorded Confirmed Type aspirin 81 mg PO DAILY #0 11/21/10 01/14/18 History niacin (inositol niacinate) 2,000 mg PO HS #0 11/23/16 01/14/18 History [Niacin Flush Free] pioglitazone [Actos] 15 mg PO QDAY #90 tab 08/01/17 01/14/18 Rx glimepiride 2 mg tablet See Label Instructions PO QDAY 09/17/17 01/14/18 Rx #270 tab gabapentin 600 mg tablet See Label Instructions PO TID #180 10/12/17 01/14/18 Rx tab cyclobenzaprine 5 mg tablet 5 mg PO Q8H PRN #20 tab 11/07/17 01/14/18 Rx temazepam 15 mg capsule 0 mg PO HSP #60 cap 11/07/17 01/14/18 Rx levothyroxine 150 mcg capsule 150 mcg PO DAILY #90 cap 11/21/17 01/14/18 Rx oxycodone-acetaminophen 5 mg-325 See Label Instructions .ROUTE 01/04/18 01/14/18 Rx mg tablet .COMPLEX PRN #180 tab Diabetic Shoes 1 pkg MISCELLANEOUS DIRECTED 01/14/18 01/14/18 History Walker: Four Wheel 1 u MISCELLANEOUS DIRECTED 01/14/18 01/14/18 History vkgaudeyew-hiobpeeopzjdi-sbdf 1 tab PO Q6HP PRN 01/14/18 01/14/18 History carbidopa-levodopa 1 dose PO SEE INSTRUCTIONS 01/14/18 01/14/18 History furosemide 40 mg PO Q OTHER DAY 01/14/18 01/14/18 History lovastatin 5 mg PO EVERY OTHER DAY 01/14/18 01/14/18 History Allergies Allergy/AdvReac Type Severity Reaction Status Date / Time amoxicillin [From AUGMENTIN] Allergy Mild RASH Verified 01/14/18 13:44 clavulanic acid Allergy Mild RASH Verified 01/14/18 13:44 [From AUGMENTIN] metformin [METFORMIN] AdvReac Severe SWELLING Verified 01/14/18 13:44 Review of Systems Review of Systems Patient has had multiple positive symptoms and complaints in the past Constitutional Constitutional: Reports body ache(s), Reports chills, Reports difficulty sleeping, Reports fatigue, Reports headache(s), Reports lack of energy, Reports malaise and Reports weakness Eyes Eyes: Reports blurry vision, Reports change in vision and Reports double vision Comments: The patient noted some visual change early the morning of admission blurry vision double vision unclear exactly ENT Ears, Nose, Mouth, and Throat: Yes headache(s) Cardiovascular Cardiovascular: Reports foot swelling and Reports lightheadedness Respiratory Respiratory: Reports system reviewed and no additional complaints, except as documented Gastrointestinal Gastrointestinal: Reports abdominal pain Genitourinary Genitourinary: Reports system reviewed and no additional complaints, except as documented Musculoskeletal Musculoskeletal: Reports abnormal gait, Reports back pain, Reports myalgias, Reports arthralgias, Reports limited range of motion, Reports muscle weakness, Reports numbness, Reports radiating pain into limb and Reports stiffness Integumentary/Breasts Skin/Breast: Reports system reviewed and no additional complaints, except as documented Neurologic Neurologic: Reports abnormal gait, Reports headache(s), Reports focal weakness, Reports memory loss, Reports numbness, Reports radicular pain, Reports restless legs, Reports tremor(s) and Reports weakness Comments: Notes the onset of tremor on Sunday got dramatically worse on Sunday Psychiatric Psychiatric: Reports abnormal sleep pattern, Reports depression and Reports memory loss Endocrine Endocrine: Reports system reviewed and no additional complaints, except as documented and Reports fatigue Hematologic/Lymphatic Hematologic/Lymphatic: Reports system reviewed and no additional complaints, except as documented Allergic/Immunologic Allergic/Immunologic: Reports system reviewed and no additional complaints, except as documented Exam Vital Signs (past 8 hours): - 01/14/18 23:40 01/15/18 04:19 Temperature 98.1 F 97.8 F Pulse Rate 85 77 Respiratory Rate 16 16 Blood Pressure 117/63 105/58 L Pulse Oximetry 97 97 Oxygen Delivery Method Room Air Oxygen Flow Rate 0 Narrative Exam Narrative: Patient is examined in the [facility] in the emergency room resting quietly appears in no distress GENERAL: SKIN: No specific lesions or rash. HEENT: Sclera nonicteric, and EOMI. TMs and canals normal. Nasal mucosa normal and septum midline. Oropharnyx without lesions. NECK: Midline trachea, thyroid nontender and not enlarged. No lymphadenopathy. Carotids without bruits. BACK: No obvious deformity and nontender] BREASTS: N not examined encouraged. CHEST: Clear and symmetric breath sounds. CV: RRR no audible murmur. ABDOMEN: Soft nontender without viceromegaly or bruits. EXTREMITIES: No cyanosis clubbing or edema.] MUSCULOSKELETAL: No gross joint changes. NEURO: Cranial nerves grossly intact. Sensory motor normal. DTRs symmetric knees and ankles, 2+ bilaterally. In general she appears her usual self. She does have a a significant tremor without stents hands not really a minor tremor but major tremor as somewhat uncoordinated. Finger-nose done with difficulty Cranial nerves 2-12 are intact no nystagmus or seen. Reflexes are 1+. Strength and sensation of her upper extremities appear symmetric and normal She has not gotten out of bed for me to observe her ambulation or gait her steadiness Objective Labs Result Diagrams: 01/15/18 05:30 01/15/18 05:30 Labs: Laboratory Results - last 24 hr 01/14/18 01/14/18 01/14/18 14:10 14:10 14:10 WBC 10.8 RBC 4.16 Hgb 10.1 L Hct 31.5 L MCV 75.7 L MCH 24.2 L MCHC 31.9 RDW 21.3 H Plt Count 216 Neut % (Auto) 72.9 Lymph % (Auto) 16.5 L [place] % (Auto) 9.2 Eos % (Auto) 0.9 L Baso % (Auto) 0.5 Neut # (Auto) 7900 H Hypersegmented Neuts 1+ RBC Morphology Not Reportable Poikilocytosis 1+ H Anisocytosis 1+ H PT 12.9 H INR 1.2 APTT 30 Sodium Potassium Chloride Carbon Dioxide BUN Creatinine Estimated GFR BUN/Creatinine Ratio Glucose Lactate Calcium Total Bilirubin AST ALT Alkaline Phosphatase Troponin I Total Protein Albumin Globulin Albumin/Globulin Ratio Lipase Procalcitonin 0.05 TSH Free T4 Free T3 Urine RBC Urine WBC Ur Squamous Epith Cells Ur Transition Epith Cell Urine Bacteria Ur Culture Indicated? Micro UA Comment 01/14/18 01/14/18 01/14/18 14:10 14:10 14:10 WBC RBC Hgb Hct MCV MCH MCHC RDW Plt Count Neut % (Auto) Lymph % (Auto) [place] % (Auto) Eos % (Auto) Baso % (Auto) Neut # (Auto) Hypersegmented Neuts RBC Morphology Poikilocytosis Anisocytosis PT INR APTT Sodium 141 Potassium 4.8 Chloride 110 H Carbon Dioxide 22 BUN 14 Creatinine 0.70 Estimated GFR > 60.0 BUN/Creatinine Ratio 20.0 Glucose 165 H Lactate 1.5 Calcium 9.4 Total Bilirubin 0.5 AST 29 ALT 16 Alkaline Phosphatase 65 Troponin I < 0.012 Cancelled Total Protein 7.0 Albumin 3.9 Globulin 3.1 Albumin/Globulin Ratio 1.3 Lipase 25 Procalcitonin TSH Free T4 Free T3 Urine RBC Urine WBC Ur Squamous Epith Cells Ur Transition Epith Cell Urine Bacteria Ur Culture Indicated? Micro UA Comment 01/14/18 01/14/18 01/15/18 14:10 14:30 05:30 WBC 7.8 RBC 3.56 L Hgb 8.7 L Hct 27.6 L MCV 77.5 L MCH 24.4 L MCHC 31.5 RDW 21.4 H Plt Count 155 Neut % (Auto) 58.0 Lymph % (Auto) 24.9 L [place] % (Auto) 15.1 H Eos % (Auto) 1.6 L Baso % (Auto) 0.4 Neut # (Auto) 4500 Hypersegmented Neuts RBC Morphology Poikilocytosis Anisocytosis PT INR APTT Sodium Potassium Chloride Carbon Dioxide BUN Creatinine Estimated GFR BUN/Creatinine Ratio Glucose Lactate Calcium Total Bilirubin AST ALT Alkaline Phosphatase Troponin I Total Protein Albumin Globulin Albumin/Globulin Ratio Lipase Procalcitonin TSH 0.16 L Free T4 Free T3 Urine RBC None seen Urine WBC 1-5/hpf Ur Squamous Epith Cells None seen Ur Transition Epith Cell 0-1/hpf Urine Bacteria Many (>30) H Ur Culture Indicated? Specimen cultured Micro UA Comment Not Reportable 01/15/18 01/15/18 05:30 05:30 WBC RBC Hgb Hct MCV MCH MCHC RDW Plt Count Neut % (Auto) Lymph % (Auto) [place] % (Auto) Eos % (Auto) Baso % (Auto) Neut # (Auto) Hypersegmented Neuts RBC Morphology Poikilocytosis Anisocytosis PT INR APTT Sodium 144 Potassium 4.1 Chloride 113 H Carbon Dioxide 22 BUN 12 Creatinine 0.80 Estimated GFR > 60.0 BUN/Creatinine Ratio 15.0 Glucose 164 H Lactate Calcium 8.6 Total Bilirubin AST ALT Alkaline Phosphatase Troponin I Total Protein Albumin Globulin Albumin/Globulin Ratio Lipase Procalcitonin TSH Free T4 1.20 Free T3 3.00 Urine RBC Urine WBC Ur Squamous Epith Cells Ur Transition Epith Cell Urine Bacteria Ur Culture Indicated? Micro UA Comment Blood labs reviewed Other studies done through the emergency room included chest x-ray which was normal. Head CT normal. Head CT angiogram normal perhaps approximately 50% narrowing of the left carotid but insignificant Assessment & Plan Plan: Assessment/Plan Narrative: 1. Patient with a relatively vague symptoms. Objective findings include changes consistent with the urinary tract infection. She may well be dehydrated also She is on multiple medications she has had medication issues in the past perhaps this is contributed to her weakness The head CT/CTA unremarkable implies unlikely to be a central neurologic event. Patient will be admitted here for overnight observation perhaps 2 days. If no improvement of the above findings then will consider further diagnostic imaging with an MRI. 2. Chronic back pain being evaluated by Dr. Judith young and Dr. sarabia.. Para 3. Diabetes mellitus being followed as an outpatient. 4. Hypothyroidism TSH is decreased will get some updated lab. 5. Generalized weakness is been ongoing problem patient is ambulatory with a walker and has been doing reasonably well with this.
[2018-01-15 07:30] VITALS: BP 102/55; PULSE 77; RESP 16; TEMP 36.6; O2SAT 98
[2018-01-15 08:40] VITALS: O2SAT 98
[2018-01-15] MEDS: GABAPENTIN 600 MG TABLET PO ×2 (09:36→13:57)
[2018-01-15] MEDS: CARBIDOPA-LEVODOPA ER 50/200 TABLET 1 EACH PO ×2 (09:39→13:56)
--- NOTE | 2018-01-15 10:50 | PT.IIE ---
Surgical History (Last Reviewed 01/15/18 @ 07:06 by Corby Zurita MD) Gastric bypass status for obesity (Acute) H/O hernia repair (Acute) S/P foot surgery, right (Acute) Medical History (Last Reviewed 01/15/18 @ 07:06 by Corby Zurita MD) Chronic back pain (Chronic ~2009) Neuropathy (Chronic ~2008) Headache (Chronic ~1989) Migraines (Chronic ~1989) Restless leg syndrome (Chronic ~1989) Lupus (Chronic ~1999) Arthritis (Chronic) Anemia (Chronic ~2004) Foot pain (Chronic ~2010) Fractures (Chronic ~2011) Gastric ulcer (Chronic ~1991) History of irregular menstrual cycles (Chronic ~1989) Hyperthyroidism (Chronic ~2004) Ovarian cyst (Chronic ~1999) Painful menstrual periods (Chronic ~1978) Chicken pox (Resolved) Measles (Resolved) Mumps (Resolved) Physical Therapy Inpatient Evaluation/Re-Eval M1 PT/OT-IP Prior Functional Status Start: 01/15/18 13:01 Freq: NEEDED Status: Active Protocol: Document 01/15/18 10:50 AB (Rec: 01/15/18 13:08 [id number]) Medical Review Prior Functional Status Medical History Reviewed Yes Communication able to make needs known Mobility and Gait pt stated that she is modified independent with all mobilities and ambulation without AD but occasionally uses a 4WW for outdoor long distance mobility Social History Household Members spouse Living Arrangements House Number of Floors (Floors) One Floor Number of Stairs To Enter/Railing? 3 steps with R rail ascending Home Environment Standard Height Toilet Walk in Shower Home Equipment Four Wheel Walker Shower Seat with Backrest Hand Held Shower Employment Status Retired M2 PT-IP Current Condition Start: 01/15/18 13:01 Freq: NEEDED Status: Active Protocol: Document 01/15/18 10:50 AB (Rec: 01/15/18 13:08 AB [id number]) Physical Therapy Current Condition Current Condition Evaluation Date 01/15/18 Treatment Diagnosis UTI; generalized weakness Onset Date 01/14/18 M3 PT-IP Subjective Start: 01/15/18 13:01 Freq: NEEDED Status: Active Protocol: Document 01/15/18 10:50 AB (Rec: 01/15/18 13:08 AB [id number]) Subjective Physical Therapy Visit Type Type Initial Evaluation Visit Start Time 10:50 Visit Stop Time 11:05 Total Visit Minutes 15 Number of DIRECTOR TELECOMMUNICATIONS Visits 0 Physical Therapy Visit Comments Patient Comments pt agreeable to do PT Patient Goals to go home Therapy Pain Assessment Pain Present Pain Present Denied Pain M4 PT-IP Mobility and Gait Start: 01/15/18 13:01 Freq: NEEDED Status: Active Protocol: Document 01/15/18 10:50 AB (Rec: 01/15/18 13:08 AB [id number]) PT-Bed Mobility Assessment Supine to Sit Supine to Sit Standby Assistance Sit to Supine Sit to Supine Standby Assistance Scooting Scooting to Edge of Bed Standby Assistance PT-Transfer Assessment Sit to and From Stand Sit to and from Stand Standby Assistance Equipment Transfer Assistive Device Gait Belt Front Wheeled Walker Gait Assessment Gait Gait Assistance Required: Standby Assistance Distance (Feet) 250 Able to Maintain Weight Bearing Status Yes During Gait Assistive Devices Assistive Device Front Wheeled Walker 4 Wheeled Walker Orthotic/Prosthetic Devices or Brace: No Gait Deviations General Gait Pattern Decreased Stride Length Decreased Feet Clearance Factors Limiting Gait Function Factors Limiting Gait Function Decreased Activity Tolerance Decreased Strength Poor Balance Comments Gait Comments assessed ambulation using FWW and pt reuqiring SBA. assessed ambulation using 4WW and pt requiring SBA and demonstrated safeyt with use of 4WW. Stair Climbing Assessment Evaluation Level of Assist On Stairs Standby Assistance Devices Stair Climbing Assistive Devices Right Railing Technique/Endurance Stair Climbing Direction Ascend and Descend Stair Climbing Technique Step to Step Number of Steps Climbed 3 Query Text: Stair Climbing Set # Repetitions (reps) 2 PT-Balance Assessment Sitting Balance and Reactions Static Sitting Balance Ability Good Dynamic Sitting Balance Ability Good Standing Balance and Reactions Static Standing Balance Ability Fair Dynamic Standing Balance Ability Fair Device Used 4WW M5 PT-IP Objective Assessments Start: 01/15/18 13:01 Freq: NEEDED Status: Active Protocol: Document 01/15/18 10:50 AB (Rec: 01/15/18 13:08 AB [id number]) Orientation Orientation/Cognition Level of Alertness Alert Orientation Name Age Birthday Month Date Year Day of Week Place Situation Safety Awareness Understands Safety Issues Gross Range of Motion Lower Extremity ROM Assessment Within Functional Limits Strength Lower Extremity Strength Assessment Within Functional Limits Coordination Assessment Gross Coordination Gross Coordination WNL Muscle Tone Muscle Tone WNL Yes M6 PT-IP Treatment Start: 01/15/18 13:01 Freq: NEEDED Status: Active Protocol: Document 01/15/18 10:50 AB (Rec: 01/15/18 13:08 AB [id number]) Physical Therapy Treatment Education Education Provided Safety M7 PT-IP Assessment and Plan Start: 01/15/18 13:01 Freq: NEEDED Status: Active Protocol: Document 01/15/18 10:50 AB (Rec: 01/15/18 13:08 AB [id number]) PT Summary Assessment and Plan Potential Rehabilitation Potential Good Status of Condition at Evaluation Stable Summary Impairments Strength Balance Bed Mobility Transfers Gait Activity Tolerance Assessment Summary pt requiring SBA with mobility and plans to go home with spouse to assist her. pt may go home when medically stable. Goals Bed Mobility Goal Independent Transfer Goal Independent Gait Goal Independent Gait Distance 300 Other Goals up/down 3 steps with R rail ascending Days to Meet Goals 2 Frequency of Treatment Frequency Of Treatment Once a Day Treatment Plan Physical Therapy Treatment Plan Bed Mobility Training Transfer Training Gait Training Therapeutic Exercise Balance Retraining Discharge Planning Neuromuscular Re-ed Other Recommendations and Next Treatment ambulation, stairclimbing Focus Recommendations To Nursing Amount of Assist Needed Standby Assistance Discharge Recommendations PT Discharge Recommendations Home with Assistance
[2018-01-15 11:40] VITALS: BP 99/59; PULSE 90; RESP 15; TEMP 36.5; O2SAT 99
--- NOTE | 2018-01-15 12:56 | PM.PN.1 ---
Subjective Date Patient Seen: 01/15/18 Time Patient Seen: 08:56 Interval history: Patient feeling much better tremor is totally gone she feels more alert more animated has been out of bed She is really have any particular concerns or issues and currently feels that she is back to her original version and okay to be discharged Appetite is OK Exam Vital Signs (past 8 hours): - 01/15/18 07:30 01/15/18 08:40 Temperature 97.8 F Pulse Rate 77 Respiratory Rate 16 Blood Pressure 102/55 L Pulse Oximetry 98 98 Oxygen Delivery Method Room Air Oxygen Flow Rate 0 Narrative Exam Narrative: Today she is lying in bed looks much more alert makeup is on mental status appears back to her usual. She has virtually no tremor on the outstretched arms Abdominal exam is normal lungs are clear Objective Labs Result Diagrams: 01/15/18 05:30 01/15/18 05:30 Labs: Laboratory Results - last 24 hr 01/14/18 01/14/18 01/14/18 14:10 14:10 14:10 WBC 10.8 RBC 4.16 Hgb 10.1 L Hct 31.5 L MCV 75.7 L MCH 24.2 L MCHC 31.9 RDW 21.3 H Plt Count 216 Neut % (Auto) 72.9 Lymph % (Auto) 16.5 L [place] % (Auto) 9.2 Eos % (Auto) 0.9 L Baso % (Auto) 0.5 Neut # (Auto) 7900 H Hypersegmented Neuts 1+ RBC Morphology Not Reportable Poikilocytosis 1+ H Anisocytosis 1+ H PT 12.9 H INR 1.2 APTT 30 Sodium Potassium Chloride Carbon Dioxide BUN Creatinine Estimated GFR BUN/Creatinine Ratio Glucose Lactate Calcium Total Bilirubin AST ALT Alkaline Phosphatase Troponin I Total Protein Albumin Globulin Albumin/Globulin Ratio Lipase Procalcitonin 0.05 TSH Free T4 Free T3 Urine RBC Urine WBC Ur Squamous Epith Cells Ur Transition Epith Cell Urine Bacteria Ur Culture Indicated? Micro UA Comment 01/14/18 01/14/18 01/14/18 14:10 14:10 14:10 WBC RBC Hgb Hct MCV MCH MCHC RDW Plt Count Neut % (Auto) Lymph % (Auto) [place] % (Auto) Eos % (Auto) Baso % (Auto) Neut # (Auto) Hypersegmented Neuts RBC Morphology Poikilocytosis Anisocytosis PT INR APTT Sodium 141 Potassium 4.8 Chloride 110 H Carbon Dioxide 22 BUN 14 Creatinine 0.70 Estimated GFR > 60.0 BUN/Creatinine Ratio 20.0 Glucose 165 H Lactate 1.5 Calcium 9.4 Total Bilirubin 0.5 AST 29 ALT 16 Alkaline Phosphatase 65 Troponin I < 0.012 Cancelled Total Protein 7.0 Albumin 3.9 Globulin 3.1 Albumin/Globulin Ratio 1.3 Lipase 25 Procalcitonin TSH Free T4 Free T3 Urine RBC Urine WBC Ur Squamous Epith Cells Ur Transition Epith Cell Urine Bacteria Ur Culture Indicated? Micro UA Comment 01/14/18 01/14/18 01/15/18 14:10 14:30 05:30 WBC 7.8 RBC 3.56 L Hgb 8.7 L Hct 27.6 L MCV 77.5 L MCH 24.4 L MCHC 31.5 RDW 21.4 H Plt Count 155 Neut % (Auto) 58.0 Lymph % (Auto) 24.9 L [place] % (Auto) 15.1 H Eos % (Auto) 1.6 L Baso % (Auto) 0.4 Neut # (Auto) 4500 Hypersegmented Neuts RBC Morphology Poikilocytosis Anisocytosis PT INR APTT Sodium Potassium Chloride Carbon Dioxide BUN Creatinine Estimated GFR BUN/Creatinine Ratio Glucose Lactate Calcium Total Bilirubin AST ALT Alkaline Phosphatase Troponin I Total Protein Albumin Globulin Albumin/Globulin Ratio Lipase Procalcitonin TSH 0.16 L Free T4 Free T3 Urine RBC None seen Urine WBC 1-5/hpf Ur Squamous Epith Cells None seen Ur Transition Epith Cell 0-1/hpf Urine Bacteria Many (>30) H Ur Culture Indicated? Specimen cultured Micro UA Comment Not Reportable 01/15/18 01/15/18 05:30 05:30 WBC RBC Hgb Hct MCV MCH MCHC RDW Plt Count Neut % (Auto) Lymph % (Auto) [place] % (Auto) Eos % (Auto) Baso % (Auto) Neut # (Auto) Hypersegmented Neuts RBC Morphology Poikilocytosis Anisocytosis PT INR APTT Sodium 144 Potassium 4.1 Chloride 113 H Carbon Dioxide 22 BUN 12 Creatinine 0.80 Estimated GFR > 60.0 BUN/Creatinine Ratio 15.0 Glucose 164 H Lactate Calcium 8.6 Total Bilirubin AST ALT Alkaline Phosphatase Troponin I Total Protein Albumin Globulin Albumin/Globulin Ratio Lipase Procalcitonin TSH Free T4 1.20 Free T3 3.00 Urine RBC Urine WBC Ur Squamous Epith Cells Ur Transition Epith Cell Urine Bacteria Ur Culture Indicated? Micro UA Comment labs reviewed Blood culture negative so far. Urine cultures positive for g negative radha as anticipated Assessment & Plan Plan: Assessment/Plan Narrative: 1. Patient with a UTI that is documented by a positive urine culture. She received antibiotics emergency room yesterday. We will start her on Levaquin 500 mg daily as per recommendation by pharmacist. Anticipating be discharged this afternoon or tomorrow 2. General malaise has improved significantly tremors gone feel the most of her problems related to the urinary tract infection presumed dehydration 3. Physical therapy to reassess patient at prior discharge anticipating being discharged later this afternoon on Levaquin 4. Chronic back pain be followed up with a doctor Chauncey as per plan
[2018-01-15] MEDS: levoFLOXacin 500 MG TABLET PO (13:01)
[2018-01-15 13:35] VITALS: BMI 34.0
[2018-01-15] MEDS: INFLUENZA VACCINE 0.5 ML SYRINGE IM (13:54)
--- NOTE | 2018-01-15 14:55 | PC.NURSE ---
Pt is dressed and ready for discharge. Spouse has gone over to Dr. Zurita's office to picker and sorter load and unload a script. Went over d/c instructions with Pt-discussed d/c meds, time of last dose, new med, and follow up. Reviewed stroke education. Pt denies further questions and is ready to go.
--- NOTE | 2018-01-15 15:17 | CM.DANOTE ---
Discharge Planning/Care Management DCP: assessment: case received and met with pt this morning 0900. Introduced self and role. Pt was found lying in bed, looking comfortable, watching tv. Waiting to see Dr. Zurita. Pt is a 72 year old female who admitted to care of Dr. Zurita/PCP. Payer: Medicare and [facility]. Pt noted that she lives with her spouse of 51 years. PT was set to see her today. She stated she hoped to be able to go home at d/c. A check in now shows that pt did well with PT and was ok'd for home. Her arrived to pick her up and they left for home about 30 minutes ago. Clinic follow planned. CM Discharge Assessment Start: 01/15/18 15:15 Freq: Status: Active Protocol: Document 01/15/18 15:16 ITV (Rec: 01/15/18 15:17 ITV [id number]) Discharge Planning Assessment Advance Directives? No History Provided By Patient Prior Living Arrangements House Household Members spouse Whiteboard Updated in Patient Room with Yes name and ext. # of Store Leader Review Status In Process Next Review Type Continued Stay Review
== END 2018-01-15 14:57 | disposition home or self-care (01) ==
LOC: ED 17:04 → AC 17:49
PROVIDERS: Admitting Provider Family Medicine; Emergency Provider Nurse Practitioner Family; Family Provider Family Medicine; PCP Family Medicine; Visit Provider Family Medicine
DX: R53.1 Weakness (principal); E03.9 Hypothyroidism, unspecified; R25.1 Tremor, unspecified; E11.42 Type 2 diabetes mellitus with diabetic polyneuropathy; Z79.84 Long term (current) use of oral hypoglycemic drugs; Z91.81 History of falling; M54.9 Dorsalgia, unspecified
CPT/HCPCS: 36415; 36591; 70450; 70496; 70498; 71045; 80048; 80053; 81003; 81015; 82962; 83605; 83690; 84145; 84439; 84443; 84481; 84484; 85025; 85610; 85730; 87040; 87077; 87086; 87186; 90471; 90656; 93005; 96361; 96365; 96368; 96375; 97161; 99285; G0378; J1956; J2405; Q2038; Q9967

== ENCOUNTER → 2018-02-05 12:47 | Outpatient (CLI) | payer MEDICARE, OTHER, SELFPAY ==
[2018-01-14 18:39] VITALS: BMI 33.7
[2018-02-05 13:19] LABS: Add Manual Diff / Slide Review NO; Basophils Percent Auto 0.1 % (0-2); Hematocrit 34.4 % (36-46); Hemoglobin 10.5 g/dL (12.0-16.0); Lymphocytes Percent Auto 8.9 % (25-40); Mean Corpuscular HGB Conc 30.7 % (30-36); Mean Corpuscular Hemoglobin 23.3 PG (26-34); Mean Corpuscular Volume 75.9 fL (80-100); Monocytes Percent Auto 4.5 % (3-14); Neutrophils Absolute Auto 11900 /uL (3000-5900); Neutrophils Percent Auto 86.5 % (50-75); Platelet Count 346 X10^3/uL (150-400); Red Blood Cell Count 4.53 X10^6/uL (4.0-5.2); White Blood Cell Count 13.8 X10^3/uL (4.5-11.0)
[2018-02-05 19:12] LABS: HEMOLYSIS < 15 (0-50); Iron 27 ug/dL (37-170)
[2018-02-05 19:23] LABS: Percent Iron Saturation 6 % (15-50); Total Iron Binding Capacity 418 ug/dL (265-497); Transferrin 383 mg/dL (206-381)
[2018-02-05 20:04] LABS: Thyroid Stimulating Hormone 0.22 uIU/mL (0.47-4.68)
[2018-02-05 20:29] LABS: Vitamin B12 380 pg/mL (239-931)
== END ==
PROVIDERS: Family Provider Family Medicine; PCP Family Medicine; Visit Provider Family Medicine
DX: D64.9 Anemia, unspecified (principal); E03.9 Hypothyroidism, unspecified
CPT/HCPCS: 82607; 82728; 83540; 83550; 84443; 85025

== ENCOUNTER → 2018-02-06 12:32 | Outpatient (CLI) | payer MEDICARE, OTHER, SELFPAY ==
[2018-01-14 18:39] VITALS: BMI 33.7
--- NOTE | 2018-02-06 12:34 | DI.RAD.S_ITS ---
PROCEDURE: XR LUMBAR SPINE MIN 4V INDICATIONS: Status post fusion with hardware loosening TECHNIQUE: 4 views of the lumbar spine were acquired. COMPARISON: [facility], CT, ABDOMEN/PELVIS WITH CONTRAST, 11/27/2011, 18:05. [facility], CR, L-SPINE 2-3 VIEWS, 04/15/2010, 17:50. FINDINGS: Bones: 5 nonrib-bearing vertebrae are present. There is normal bony alignment. Prior unilateral left-sided L3-L5 transverse pedicle screws and vertical fixation radha has been placed, with interbody disc prosthesis material at L3-4 and L4-5. No vertebral body compression fractures. No suspicious bony lesions. Soft tissues: Overlying bowel gas pattern is normal. No suspicious soft tissue calcifications. Oblique images: No pars defects. IMPRESSION: L3-L5 unilateral left-sided fusion establishing normal alignment, with interbody disc prosthesis material is noted. Dictated by: Roberto Carlos Jang M.D. on 02/06/2018 at 13:02 Approved by: Roberto Carlos Jang M.D. on 02/06/2018 at 13:05
== END ==
PROVIDERS: Family Provider Family Medicine; PCP Family Medicine; Visit Provider Physical Medicine & Rehabilitation
DX: T84.498A Other mechanical complication of other internal orthopedic devices, implants and grafts, initial encounter (principal); Z98.1 Arthrodesis status; M54.5 Low back pain; G89.29 Other chronic pain
CPT/HCPCS: 72110

== ENCOUNTER 2018-02-19 09:49 | Outpatient (CLI) | payer MEDICARE, OTHER, SELFPAY ==
[2018-01-14 18:39] VITALS: BMI 33.7
[2018-02-19] VITALS (7 sets, daily range): BP systolic 129–173; BP diastolic 73–87; PULSE 74–92; RESP 12–18; TEMP 36.3; O2SAT 99–100
--- NOTE | 2018-02-19 09:50 | DI.RAD.S_ITS ---
PROCEDURE: PAIN L/S TRANSFORAMINAL INJECT INDICATIONS: Foraminal stenosis status post lumbar fusion FINDINGS: Fluoroscopic spot filming was performed to verify placement of spinal needles at the left L4-5 level(s), as labeled on the films. Appropriate location(s) of the needle tip(s) was confirmed by injection of iodinated contrast. IMPRESSION: Successful needle tip localization on the left at the L4-5 neural foramen margin for epidural steroid injection. Dictated by: Roberto Carlos aJng M.D. on 02/19/2018 at 12:56 Approved by: Roberto Carlos Jang M.D. on 02/19/2018 at 12:56
[2018-02-19] MEDS: MIDAZOLAM 5 MG/5 ML VIAL IV (10:25)
[2018-02-19] MEDS: BUPIVACAINE 0.25% (PF) VIAL 30 ML INJ (10:30)
[2018-02-19] MEDS: DEXAMETHASONE 10 MG/ML VIAL 20 MG INJ (10:31)
[2018-02-19] MEDS: IOPAMIDOL 15 ML VIAL 3 ML INJ (10:31)
[2018-02-19] MEDS: methylPREDNISolone acetate 80 MG/ML VIAL INJ (10:31)
--- NOTE | 2018-02-19 10:36 | PC.NURSE ---
pt finished. vss, pt awake and alert. will help get her off the table and into the wheelchair. Transport pt to pre procedure room and hand off to Bridget FAUST.
--- NOTE | 2018-02-19 10:42 | P.PCN_ITS ---
Procedures Date/Time Date of procedure: 02/19/18 Time of procedure: 10:41 General Procedure description: PREOP DIAGNOSIS 1. FORMAINAL STENOSIS WITH LE SYMPTOMS POST OP DIAGNOSIS 1. FORMAINAL STENOSIS WITH LE SYMPTOMS PROCEDURES 1. FLUOROSCOPICALLY GUIDED CONTRAST CONTROLLED TRANSFORAMINAL EPIDURAL STEROID INJECTION - LEFT L4/5 PHYSICIAN: Zachary Wong DO INDICATIONS: Veronique is referred by for treatment of Foraminal Stenosis with Left LE Symptoms FINDINGS Foraminal Nerve Root Compression secondary to disc disease and facet hypertrophy DESCRIPTION OF PROCEDURE: Following denial of allergy and review of potential side effects and complications, including, but not necessarily limited to, infection, allergic reaction, local tissue breakdown, stroke, temporary or permanent nerve injury, paralysis, and possible , the patient indicated that the patient understood and agreed to proceed. An informed consent document was signed by the patient, witnessed by a nurse, and placed in the patient's chart. Additionally, other treatment options including medications, modalities, and physical therapy were reviewed with the patient. After review of previous anaesthesic history and IV conscious sedation the patient was deemed safe to proceed with todays procedure with IV conscious sedation as ASA class II designation. Safety time-out was performed to confirm patient ID, procedure to be performed and site of procedure. IV sedation was accomplished with a combination of 3mg of Versed administered by the RN after DO order, titrated to patient comfort during the course of the procedure while the patient remained responsive to all verbal commands In the prone position following sterile prep and drape of the lumbar region, the left L4/5 posterior neuroforamen was identified fluoroscopically. The skin was anesthetized via a 25-gauge 1.5-inch needle with 1% lidocaine solution. At this point, a 25-gauge 3.5-inch spinal needle was atraumatically introduced and advanced under fluoroscopic guidance through the posterior left L4/5 neuroforamen to approximately the anterior aspect of the canal. Depth was confirmed on lateral view. Following negative aspiration, injection of approximately 1.5 cc of Isovue 200 under live fluoroscopy in the AP view confirmed excellent flow along the nerve root, into the epidural space without vascular or intrathecal uptake observed Radiological data, including multiple fluoroscopic views of the lumbosacral spine, reveal a spinal needle at the left L4/5 posterior neuroforamen. Subsequent views show flow of contrast material flowing superiorly and inferiorly along the nerve root confirming epidural flow. Subsequently, a test dose of 1.5 cc of 1% lidocaine solution was administered and patient was observed for two minutes for signs or symptoms of complications , including abdominal pain, shortness of breath, bilateral upper or lower extremity weakness, nausea and vomiting, prior to steroid injection. At this point, a total of 3 cc or 20 mg of dexamethasone and 80mg Depo Medrol was injected without incident. The procedure tolerated the procedure well without signs or symptoms of complications prior to transfer to the recovery area continued monitoring without incident. The patient was then transferred to the recovery area where they were observed for an appropriate time after the injection. The patient reported a VAS score of 7 prior to the procedure and a post- procedure VAS of 0. Total Fluoroscopy Time: 20.9 seconds Total Conscious Sedation Time: 24min POST OP INSTRUCTIONS The patient was provided a Pain Log to continue to record their response to the target-specific procedure prior to follow-up visit with their referring physician. Additionally, specific post-injection care instructions and a contact number to our office were provided if concerns arise regarding possible complications associated with the procedure are suspected. Zachary Wong DO Complications: none
--- NOTE | 2018-02-19 10:45 | PC.NURSE ---
1043 PT ARRIVED TO POST OP AREA IN STABLE CONDITION
== END 2018-02-19 11:07 | disposition home or self-care (01) ==
LOC: RAD 09:50
PROVIDERS: PCP Family Medicine; Visit Provider Physical Medicine & Rehabilitation
DX: M48.061 Spinal stenosis, lumbar region without neurogenic claudication (principal); M51.16 Intervertebral disc disorders with radiculopathy, lumbar region; T84.498A Other mechanical complication of other internal orthopedic devices, implants and grafts, initial encounter; Z98.1 Arthrodesis status
CPT/HCPCS: 64483; J1040; J1100; J2250

== ENCOUNTER 2018-03-05 07:13 | Emergency (ER) | payer MEDICARE, OTHER, SELFPAY ==
[2018-01-14 18:39] VITALS: BMI 33.7
[2018-03-05] VITALS (8 sets, daily range): BP systolic 81–160; BP diastolic 49–89; PULSE 70–88; RESP 14–23; TEMP 36.4; O2SAT 95–99
--- NOTE | 2018-03-05 | DI.RAD.S_ITS ---
PROCEDURE: XR FOOT RT 2V INDICATIONS: POST REDUCTION TOES TECHNIQUE: 3 views of the foot were acquired. COMPARISON: [facility], CR, XR FOOT RT MIN 3V, 03/05/2018, 9:00. [facility], CR, XR ANKLE RT MIN 3V, 03/05/2018, 9:00. FINDINGS: Bones: The previously noted 2nd and 3rd metatarsophalangeal joint dislocations are now anatomically aligned. No definite associated fractures are appreciated. However, there is slight irregularity identified involving the medial base of the 2nd and 4th proximal phalanges. Postoperative changes at the level of the ankle are again evident. There is a prominent plantar calcaneal spur. Moderate multilevel degenerative changes of the forefoot are evident. Soft tissues: No tibiotalar joint effusion. Achilles tendon appears normal. IMPRESSION: 1. Interval reduction of the 2nd and 3rd metatarsophalangeal joint dislocations. 2. Mild irregularity at the medial base of the 2nd and 4th proximal phalanges probably is degenerative. Subtle avulsion fractures are difficult to exclude. Dictated by: Marcelino Brunner M.D. on 03/05/2018 at 9:19 Approved by: Marcelino Brunner M.D. on 03/05/2018 at 10:50
--- NOTE | 2018-03-05 07:42 | DI.RAD.S_ITS ---
PROCEDURE: XR FOOT RT MIN 3V INDICATIONS: injury TECHNIQUE: 3 views of the foot were acquired. COMPARISON: [facility], CR, XR ANKLE RT MIN 3V, 03/05/2018, 9:00. [facility], , FOOT 3V RIGHT, 01/26/2016, 10:06. FINDINGS: Bones: There is dislocation of the second and third toes at the second and third metatarsophalangeal joints with lateral displacement of the second and third proximal phalanges. No definitive fractures. Post surgical changes are noted in the medial and lateral malleoli with surgical screws and fixation plate. There is osteopenia. Degenerative disease is present, moderate at the first metatarsophalangeal joint. Note is made of metatarsus adductus and hallux valgus. No suspicious bony lesions. Soft tissues: No tibiotalar joint effusion. Achilles tendon appears normal. IMPRESSION: 1. Dislocation of the second and third toes at the second third metatarsophalangeal joints. There is lateral displacement of the second and third toes. 2. Postsurgical changes in the right ankle. Please see separate ankle x-ray report. 3. Degenerative joint disease. 4. Osteopenia. Dictated by: Isis Billy M.D. on 03/05/2018 at 8:23 Approved by: Isis Billy M.D. on 03/05/2018 at 8:30
--- NOTE | 2018-03-05 07:43 | DI.RAD.S_ITS ---
PROCEDURE: XR ANKLE RT MIN 3V INDICATIONS: injury TECHNIQUE: 3 views of the ankle were acquired. COMPARISON: [facility], , ANKLE 3 VIEWS RIGHT, 02/06/2013, 15:35. FINDINGS: Bones: Lateral and medial malleolar plate and screw fixation are identified. Overall appearance is unchanged. Hardware appears intact. Calcaneal spur is present. No acute osseous abnormalities are identified. Soft tissues: No tibiotalar joint effusion. Achilles tendon appears normal. IMPRESSION: Bimalleolar postsurgical changes. No visualized acute fracture or dislocation. However, if clinical concern and/or pain persist, short interval imaging followup in 7-10 days is recommended, as occult injury cannot be definitively excluded. Dictated by: Yu Gimenez M.D. on 03/05/2018 at 8:16 Approved by: Yu Gimenez M.D. on 03/05/2018 at 8:18
--- NOTE | 2018-03-05 08:00 | RT ---
EKG DONE AT 0752
--- NOTE | 2018-03-05 08:18 | PC.NURSE ---
Elevated patient's foot on a pillow and placed ice pack on
--- NOTE | 2018-03-05 08:32 | ED.LOWEXIN ---
HPI - Extremity Injury (Lower) General Chief Complaint: Extremity Injury, Lower Stated Complaint: fell, thinks she broke foot Time Seen by Provider: 03/05/18 08:22 Source: patient Mode of arrival: wheelchair Limitations: no limitations History of Present Illness HPI Narrative: This is a 72-year-old female who states that she was walking to the bathroom this morning about 1:00 a.m. when she felt like her foot gave way. She states she did fall but she did not have any injuries otherwise. She continues to have pain in her foot and cannot weight bear. She states she has chronic neuropathy but does not have any new change in her neuropathy. She has pain in the midfoot and ankle region. Related Data Home Medications Medication Instructions Recorded Confirmed aspirin 81 mg PO DAILY #0 11/21/10 02/05/18 niacin (inositol niacinate) 2,000 mg PO HS #0 11/23/16 02/05/18 [Niacin Flush Free] Diabetic Shoes 1 pkg MISCELLANEOUS DIRECTED 01/14/18 02/05/18 Walker: Four Wheel 1 u MISCELLANEOUS DIRECTED 01/14/18 02/05/18 carbidopa-levodopa 1 dose PO 5XD PRN 01/14/18 03/05/18 furosemide 40 mg PO Q OTHER DAY 01/14/18 02/05/18 lovastatin 5 mg PO EVERY OTHER DAY 01/14/18 02/05/18 bupropion HCl 150 mg PO BID 03/05/18 03/05/18 pstqpgfrxw-hvfmezpisrlkt-rqql 1 - 2 tab PO Q4-6H PRN 03/05/18 03/05/18 gabapentin [Neurontin] 600 - 1,200 mg PO TID 03/05/18 03/05/18 glimepiride 6 mg PO DAILY 03/05/18 03/05/18 oxycodone-acetaminophen [Percocet] 1 - 2 tab PO Q4-6H PRN MDD 8 03/05/18 03/05/18 pioglitazone [Actos] 15 mg PO DAILY 03/05/18 03/05/18 temazepam 15 - 30 mg PO BEDTIME 03/05/18 03/05/18 Previous Rx's Medication Instructions Recorded cyclobenzaprine 5 mg tablet 5 mg PO Q8H PRN #20 tab 11/07/17 levothyroxine 150 mcg capsule 150 mcg PO DAILY #90 cap 11/21/17 levofloxacin 500 mg PO DAILY #10 tab 01/20/18 levothyroxine 125 mcg tablet 125 mcg PO DAILY #90 tab 02/06/18 hydrocodone-acetaminophen [[place]] 1 tab PO Q6H PRN #14 tab 03/05/18 Allergies Allergy/AdvReac Type Severity Reaction Status Date / Time amoxicillin [From AUGMENTIN] Allergy Mild RASH Verified 02/05/18 11:55 clavulanic acid Allergy Mild RASH Verified 02/05/18 11:55 [From AUGMENTIN] metformin [METFORMIN] AdvReac Severe SWELLING Verified 02/05/18 11:55 Review of Systems Review of Systems All systems reviewed & are unremarkable except as noted in HPI and below Musculoskeletal Reports as per HPI, Reports deformity, Reports limited range of motion, Reports numbness (neuropathy), Reports tingling and Reports other (pain foot) Integumentary/Breasts Denies unusual bruising Neurologic Reports numbness (neuropathy) and Reports tingling PFSH Medical History Chronic back pain (Chronic ~2009) Neuropathy (Chronic ~2008) Headache (Chronic ~1989) Migraines (Chronic ~1989) Restless leg syndrome (Chronic ~1989) Lupus (Chronic ~1999) Arthritis (Chronic) Anemia (Chronic ~2004) Foot pain (Chronic ~2010) Fractures (Chronic ~2011) Gastric ulcer (Chronic ~1991) History of irregular menstrual cycles (Chronic ~1989) Hyperthyroidism (Chronic ~2004) Ovarian cyst (Chronic ~1999) Painful menstrual periods (Chronic ~1978) Chicken pox (Resolved) Measles (Resolved) Mumps (Resolved) Surgical History Gastric bypass status for obesity (Acute) H/O hernia repair (Acute) S/P foot surgery, right (Acute) Social History marital status: household members: spouse Smoking Status: Never smoker alcohol intake: never substance use type: does not use Exam Initial Vital Signs Initial Vital Signs: Vital Signs Temperature 97.6 F 03/05/18 07:15 Pulse Rate 82 03/05/18 07:15 Respiratory Rate 14 11/06/18 07:15 Blood Pressure 81/49 L 03/05/18 07:15 Pulse Oximetry 99 03/05/18 07:15 GENERAL: Alert and oriented x three, well-nourished female in mild distress. HEENT: Head normocephalic, atraumatic, EOMI, pupils reactive, face symmetric, moist mucous membranes NECK: Supple, full range of motion CARDIOVASCULAR: Regular rate and rhythm without murmurs, rubs or gallops. RESPIRATORY: Breath sounds equal bilaterally, no wheezes rales or rhonchi. ABDOMEN: Soft, nontender. Normoactive bowel sounds all 4 quadrants. No guarding or rebound, rigidity, no mass EXTREMITIES: Patient's right foot has tenderness over the 2nd and 3rd metatarsals. Her appear deviated laterally. She has cap refill less than 2 sec in all 5 toes. Patient has slightly decreased sensation to touch although she can feel touch. She has no bruising she has swelling the lateral foot and ankle, no clubbing. No bony tenderness of the malleoli the tibia or avendaño. Neurovascularly intact NEUROLOGICAL: Cranial nerves II through XII grossly intact. Moving all extremities SKIN: Warm, dry, no petechiae, no rashes or lesions. Procedures Orthopedic Joint Reduction Joint #1: Time Out Performed: Yes Side: right Joint Reduction Location: toe (#2) Analgesia: procedural sedation Technique used: direct manipulation Post-reduction neuro exam: intact Post-reduction vascular: intact Post Reduction X-Ray Obtained: Yes Post Reduction X-Ray Results: reduced Splint Applied: Yes Patient Tolerated Procedure: Well Joint #2: Time Out Performed: Yes Side: right Joint Reduction Location: toe (#3) Analgesia: procedural sedation Technique used: direct manipulation Post-reduction neuro exam: intact Post-reduction vascular: intact Post Reduction X-Ray Obtained: Yes Post Reduction X-Ray Results: reduced Splint Applied: Yes Patient Tolerated Procedure: Well Procedural Sedation Patient Age: Patient is 5yrs or older Indication: fracture/dislocation reduction ASA Class: III Mallampati Airway Classification: Class II Preparation: manager cardiac applied, pulse oximeter, capnometry used, supplemental O2 applied, suction/airway equipment at bedside and IV secured Ketamine: IV Ketamine dose (mg): 75 ED Sedation Level: Moderate (Concious) Patient Tolerated Procedure: Well Complications: hypoxia (second to hypoventilation, patient had jaw thrust applied and O2 level improved and patient had no other complications.) Interventions: Airway repositioned and Oxygen applied Course Orders Ordered: Discontinued Medications Sodium Chloride (Normal Saline 0.9%) 1,000 mls @ 1,000 mls/hr IV BOLUS ONE Stop: 03/05/18 10:44 Last Infusion: 03/05/18 11:45 Dose: 500 mls/hr Admin: 03/05/18 11:34 Dose: 1,000 mls/hr Ketamine HCl (Ketalar) 75 mg IV NOW ONE Stop: 03/05/18 09:26 Last Admin: 03/05/18 09:32 Dose: 75 mg Morphine Sulfate (Morphine) 4 mg IM NOW ONE Stop: 03/05/18 08:28 Last Admin: 03/05/18 08:47 Dose: 4 mg Vital Signs - 8 hr 03/05/18 07:15 03/05/18 08:58 03/05/18 09:45 Temperature 97.6 F Pulse Rate 82 78 70 Respiratory Rate 14 15 23 Blood Pressure 81/49 L Blood Pressure [Right Arm] 91/64 110/70 Pulse Oximetry 99 95 98 03/05/18 09:50 03/05/18 09:55 03/05/18 10:00 Temperature Pulse Rate 88 85 82 Respiratory Rate 14 20 20 Blood Pressure Blood Pressure [Right Arm] 160/89 H 123/63 122/68 Pulse Oximetry 98 96 03/05/18 10:10 03/05/18 11:30 Temperature Pulse Rate 72 79 Respiratory Rate 18 23 Blood Pressure Blood Pressure [Right Arm] 100/63 101/70 Pulse Oximetry 96 97 MDM - Extremity Injury (Lower) Lab Data Point of Care Testing Test Results Not applicable Imaging Data Ft x-ray: Radiologist's impression: [address] [address] XRay Report Signed Patient: Veronique Gould LMR#: [id number] : 7Acct:[id number] Age/Sex: 72 / FDate of Service: 03/05/18 Loc: ED Accession Number: [id number] Procedure: XR foot RT min 3V Ordering Provider: Katrin Dey D.O. PROCEDURE: XR FOOT RT MIN 3V INDICATIONS: injury TECHNIQUE: 3 views of the foot were acquired. [facility] 3V, 03/05/2018, 9:00. [facility], FOOT 3V RIGHT, 01/26/2016, 10:06. FINDINGS: Bones: There is dislocation of the second and third toes at the second and third metatarsophalangeal joints with lateral displacement of the second and third proximal phalanges. No definitive fractures. Post surgical changes are noted in the medial and lateral malleoli with surgical screws and fixation plate. There is osteopenia. Degenerative disease is present, moderate at the first metatarsophalangeal joint. Note is made of metatarsus adductus and hallux valgus. No suspicious bony lesions. Soft tissues: No tibiotalar joint effusion. Achilles tendon appears normal. IMPRESSION: 1. Dislocation of the second and third toes at the second third metatarsophalangeal joints. There is lateral displacement of the second and third toes. 2. Postsurgical changes in the right ankle. Please see separate ankle x-ray report. 3. Degenerative joint disease. 4. Osteopenia. Dictated by: Isis Billy M.D. on 03/05/2018 at 8:23 Approved by: Isis Billy M.D. on 03/05/2018 at 8:30 Ankle x-ray: Radiologist's impression: [place] [address] XRay Report Signed Patient: Veronique Gould LMR#: [id number] : 7Acct:[id number] Age/Sex: 72 / FDate of Service: 03/05/18 Loc: ED Accession Number: [id number] Procedure: XR ankle RT min 3V Ordering Provider: Katrin Dey D.O. PROCEDURE: XR ANKLE RT MIN 3V INDICATIONS: injury TECHNIQUE: 3 views of the ankle were acquired. COMPARISON: [facility], ANKLE 3 VIEWS RIGHT, 02/06/2013, 15:35. FINDINGS: Bones: Lateral and medial malleolar plate and screw fixation are identified. Overall appearance is unchanged. Hardware appears intact. Calcaneal spur is present. No acute osseous abnormalities are identified. Soft tissues: No tibiotalar joint effusion. Achilles tendon appears normal. IMPRESSION: Bimalleolar postsurgical changes. No visualized acute fracture or dislocation. However, if clinical concern and/or pain persist, short interval imaging followup in 7-10 days is recommended, as occult injury cannot be definitively excluded. Dictated by: Yu Gimenez M.D. on 03/05/2018 at 8:16 Approved by: Yu Gimenez M.D. on 03/05/2018 at 8:18 post reduction: Attestation: I personally reviewed and interpreted this imaging study as follows: My impression: reduction of 2/3rd metatarsophalangeal joint dislocation. Patient has no obvious fractures but discussed risk with patient. Radiologist's impression: [address] [address] XRay Report Signed Patient: Veronique Gould LMR#: [id number] : 1946Acct:[id number] Age/Sex: 72 / FDate of Service: 03/05/18 Loc: ED Accession Number: [id number] Procedure: XR foot RT 2V Ordering Provider: Katrin Dey D.O. PROCEDURE: XR FOOT RT 2V INDICATIONS: POST REDUCTION TOES TECHNIQUE: 3 views of the foot were acquired. COMPARISON: [facility], CR, XR FOOT RT MIN 3V, 03/05/2018, 9:00. [facility], CR, XR ANKLE RT MIN 3V, 03/05/2018, 9:00. FINDINGS: Bones: The previously noted 2nd and 3rd metatarsophalangeal joint dislocations are now anatomically aligned. No definite associated fractures are appreciated. However, there is slight irregularity identified involving the medial base of the 2nd and 4th proximal phalanges. Postoperative changes at the level of the ankle are again evident. There is a prominent plantar calcaneal spur. Moderate multilevel degenerative changes of the forefoot are evident. Soft tissues: No tibiotalar joint effusion. Achilles tendon appears normal. IMPRESSION: 1. Interval reduction of the 2nd and 3rd metatarsophalangeal joint dislocations. 2. Mild irregularity at the medial base of the 2nd and 4th proximal phalanges probably is degenerative. Subtle avulsion fractures are difficult to exclude. Dictated by: Marcelino Brunner M.D. on 03/05/2018 at 9:19 Approved by: Marcelino Brunner M.D. on 03/05/2018 at 10:50 MDM Narrative Medical decision making narrative: Dr. Medrano discussed findings and plan for follow up. Patient has walker at home, placed in splint and told partial weight bearing but to avoid on foot. Discharge Plan Departure Patient Disposition: Home Clinical Impression: Closed dislocation of second toe of right foot, Closed dislocation of third toe of right foot Discharge Date/Time: 03/05/18 11:48 Interventions: ED Discharge Assessment Last Done: 03/05/18 11:47 Instructions: Dislocated Toe Activity Restrictions/Additional Instructions: Follow-up with Orthopedic surgery in 3-5 days for recheck. Call today for an appointment. Take pain medication as prescribed, this medication can make you sleepy do not drive, perform hazards activities or make any major decisions while taking it. Continue to wear walking boot until cleared by Orthopedic surgery. Splint Care: Keep splint clean and dry. Elevated affected body part to decrease swelling. OK to use ice pack on the affected body part. Use for 15-20 minutes each time, for 5-6x per day. If you develop worsening pain, numbness, tingling, discoloration of the affected body part, loosen the splint by loosening the SUGEY wrap, and either see your doctor for an urgent re-assessment, or return to the Emergency Department. Return to the Emergency Department for any new or worsening symptoms. Prescriptions: New hydrocodone-acetaminophen [[place]] 5-325 mg tablet 1 tab PO Q6H PRN (Reason: pain) Qty: 14 RF: 0 No Action aspirin 81 mg Tablet,Delayed Release (Dr/Ec) 81 mg PO DAILY Qty: 0 RF: 0 niacin (inositol niacinate) [Niacin Flush Free] 750 MG capsule 2,000 mg PO HS Qty: 0 RF: 0 cyclobenzaprine 5 mg tablet 5 mg PO Q8H PRN (Reason: muscle spasm) Qty: 20 RF: 3 levothyroxine 150 mcg capsule 150 mcg PO DAILY Qty: 90 RF: 0 levothyroxine [Synthroid] 125 mcg tablet 125 mcg PO DAILY Qty: 90 RF: 3 furosemide 40 MG tablet 40 mg PO Q OTHER DAY RF: 0 lovastatin 10 MG tablet 5 mg PO EVERY OTHER DAY RF: 0 Walker: Four Wheel 1 u miscellaneous DIRECTED RF: 0 carbidopa-levodopa 50 MG/200 MG tablet extended release 1 dose PO 5XD PRN (Reason: Restless Leg(S)) RF: 0 Diabetic Shoes 1 pkg miscellaneous DIRECTED RF: 0 levofloxacin 500 mg tablet 500 mg PO DAILY Qty: 10 RF: 0 bupropion HCl 150 mg tablet sustained-release 12 hr 150 mg PO BID RF: 0 pioglitazone [Actos] 15 MG tablet 15 mg PO DAILY RF: 0 gabapentin [Neurontin] 600 mg tablet 600 - 1,200 mg PO TID RF: 0 pgeamsjcgf-suttwnniupdvl-owtp 50-325-40 mg tablet 1 - 2 tab PO Q4-6H PRN (Reason: Headache) RF: 0 temazepam 15 mg capsule 15 - 30 mg PO BEDTIME RF: 0 glimepiride 2 mg tablet 6 mg PO DAILY RF: 0 oxycodone-acetaminophen [Percocet] 5-325 mg tablet 1 - 2 tab PO Q4-6H MDD 8 PRN (Reason: pain) RF: 0 betamethasone acet,sod phos 6 mg/mL suspension 12 mg Intrabursal ONCE Qty: 1 RF: 0 Referrals: Corby Zurita MD [Primary Care Provider] - Maik Medrano MD [Physician] -
--- NOTE | 2018-03-05 08:37 | ED_ITS ---
HPI - Extremity Injury (Lower) General Chief Complaint: Extremity Injury, Lower Stated Complaint: fell, thinks she broke foot Time Seen by Provider: 03/05/18 08:22 Source: patient Mode of arrival: wheelchair Limitations: no limitations History of Present Illness HPI Narrative: This is a 72-year-old female who states that she was walking to the bathroom this morning about 1:00 a.m. when she felt like her foot gave way. She states she did fall but she did not have any injuries otherwise. She continues to have pain in her foot and cannot weight bear. She states she has chronic neuropathy but does not have any new change in her neuropathy. She has pain in the midfoot and ankle region. Related Data Home Medications Medication Instructions Recorded Confirmed aspirin 81 mg PO DAILY #0 11/21/10 02/05/18 niacin (inositol niacinate) 2,000 mg PO HS #0 11/23/16 02/05/18 [Niacin Flush Free] Diabetic Shoes 1 pkg MISCELLANEOUS DIRECTED 01/14/18 02/05/18 Walker: Four Wheel 1 u MISCELLANEOUS DIRECTED 01/14/18 02/05/18 carbidopa-levodopa 1 dose PO 5XD PRN 01/14/18 03/05/18 furosemide 40 mg PO Q OTHER DAY 01/14/18 02/05/18 lovastatin 5 mg PO EVERY OTHER DAY 01/14/18 02/05/18 bupropion HCl 150 mg PO BID 03/05/18 03/05/18 lagxrmudka-etetpxqcgdyko-kbhu 1 - 2 tab PO Q4-6H PRN 03/05/18 03/05/18 gabapentin [Neurontin] 600 - 1,200 mg PO TID 03/05/18 03/05/18 glimepiride 6 mg PO DAILY 03/05/18 03/05/18 oxycodone-acetaminophen [Percocet] 1 - 2 tab PO Q4-6H PRN MDD 8 03/05/18 pioglitazone [Actos] 15 mg PO DAILY 03/05/18 03/05/18 temazepam 15 - 30 mg PO BEDTIME 03/05/18 03/05/18 Previous Rx's Medication Instructions Recorded cyclobenzaprine 5 mg tablet 5 mg PO Q8H PRN #20 tab 11/07/17 levothyroxine 150 mcg capsule 150 mcg PO DAILY #90 cap 11/21/17 levofloxacin 500 mg PO DAILY #10 tab 01/20/18 levothyroxine 125 mcg tablet 125 mcg PO DAILY #90 tab 02/06/18 hydrocodone-acetaminophen [Niagara] 1 tab PO Q6H PRN #14 tab 03/05/18 Allergies Allergy/AdvReac Type Severity Reaction Status Date / Time amoxicillin [From AUGMENTIN] Allergy Mild RASH Verified 02/05/18 11:55 clavulanic acid Allergy Mild RASH Verified 02/05/18 11:55 [From AUGMENTIN] metformin [METFORMIN] AdvReac Severe SWELLING Verified 02/05/18 11:55 Review of Systems Review of Systems All systems reviewed & are unremarkable except as noted in HPI and below Musculoskeletal Reports as per HPI, Reports deformity, Reports limited range of motion, Reports numbness (neuropathy), Reports tingling and Reports other (pain foot) Integumentary/Breasts Denies unusual bruising Neurologic Reports numbness (neuropathy) and Reports tingling PFSH Medical History Chronic back pain (Chronic ~2009) Neuropathy (Chronic ~2008) Headache (Chronic ~1989) Migraines (Chronic ~1989) Restless leg syndrome (Chronic ~1989) Lupus (Chronic ~1999) Arthritis (Chronic) Anemia (Chronic ~2004) Foot pain (Chronic ~2010) Fractures (Chronic ~2011) Gastric ulcer (Chronic ~1991) History of irregular menstrual cycles (Chronic ~1989) Hyperthyroidism (Chronic ~2004) Ovarian cyst (Chronic ~1999) Painful menstrual periods (Chronic ~1978) Chicken pox (Resolved) Measles (Resolved) Mumps (Resolved) Surgical History Gastric bypass status for obesity (Acute) H/O hernia repair (Acute) S/P foot surgery, right (Acute) Social History marital status: household members: spouse Smoking Status: Never smoker alcohol intake: never substance use type: does not use Exam Initial Vital Signs Initial Vital Signs: Vital Signs Temperature 97.6 F 03/05/18 07:15 Pulse Rate 82 03/05/18 07:15 Respiratory Rate 14 11/06/18 07:15 Blood Pressure 81/49 L 03/05/18 07:15 Pulse Oximetry 99 03/05/18 07:15 GENERAL: Alert and oriented x three, well-nourished female in mild distress. HEENT: Head normocephalic, atraumatic, EOMI, pupils reactive, face symmetric, moist mucous membranes NECK: Supple, full range of motion CARDIOVASCULAR: Regular rate and rhythm without murmurs, rubs or gallops. RESPIRATORY: Breath sounds equal bilaterally, no wheezes rales or rhonchi. ABDOMEN: Soft, nontender. Normoactive bowel sounds all 4 quadrants. No guarding or rebound, rigidity, no mass EXTREMITIES: Patient's right foot has tenderness over the 2nd and 3rd metatarsals. Her appear deviated laterally. She has cap refill less than 2 sec in all 5 toes. Patient has slightly decreased sensation to touch although she can feel touch. She has no bruising she has swelling the lateral foot and ankle, no clubbing. No bony tenderness of the malleoli the tibia or avendaño. Neurovascularly intact NEUROLOGICAL: Cranial nerves II through XII grossly intact. Moving all extremities SKIN: Warm, dry, no petechiae, no rashes or lesions. Procedures Orthopedic Joint Reduction Joint #1: Time Out Performed: Yes Side: right Joint Reduction Location: toe (#2) Analgesia: procedural sedation Technique used: direct manipulation Post-reduction neuro exam: intact Post-reduction vascular: intact Post Reduction X-Ray Obtained: Yes Post Reduction X-Ray Results: reduced Splint Applied: Yes Patient Tolerated Procedure: Well Joint #2: Time Out Performed: Yes Side: right Joint Reduction Location: toe (#3) Analgesia: procedural sedation Technique used: direct manipulation Post-reduction neuro exam: intact Post-reduction vascular: intact Post Reduction X-Ray Obtained: Yes Post Reduction X-Ray Results: reduced Splint Applied: Yes Patient Tolerated Procedure: Well Procedural Sedation Patient Age: Patient is 5yrs or older Indication: fracture/dislocation reduction ASA Class: III Mallampati Airway Classification: Class II Preparation: nuclear monitoring technician applied, pulse oximeter, capnometry used, supplemental O2 applied, suction/airway equipment at bedside and IV secured Ketamine: IV Ketamine dose (mg): 75 ED Sedation Level: Moderate (Concious) Patient Tolerated Procedure: Well Complications: hypoxia (second to hypoventilation, patient had jaw thrust applied and O2 level improved and patient had no other complications.) Interventions: Airway repositioned and Oxygen applied Course Orders Ordered: Discontinued Medications Sodium Chloride (Normal Saline 0.9%) 1,000 mls @ 1,000 mls/hr IV BOLUS ONE Stop: 03/05/18 10:44 Last Infusion: 03/05/18 11:45 Dose: 500 mls/hr Admin: 03/05/18 11:34 Dose: 1,000 mls/hr Ketamine HCl (Ketalar) 75 mg IV NOW ONE Stop: 03/05/18 09:26 Last Admin: 03/05/18 09:32 Dose: 75 mg Morphine Sulfate (Morphine) 4 mg IM NOW ONE Stop: 03/05/18 08:28 Last Admin: 03/05/18 08:47 Dose: 4 mg Vital Signs - 8 hr 03/05/18 07:15 03/05/18 08:58 03/05/18 09:45 Temperature 97.6 F Pulse Rate 82 78 70 Respiratory Rate 14 15 23 Blood Pressure 81/49 L Blood Pressure [Right Arm] 91/64 110/70 Pulse Oximetry 99 95 98 03/05/18 09:50 03/05/18 09:55 03/05/18 10:00 Temperature Pulse Rate 88 85 82 Respiratory Rate 14 20 20 Blood Pressure Blood Pressure [Right Arm] 160/89 H 123/63 122/68 Pulse Oximetry 98 96 03/05/18 10:10 03/05/18 11:30 Temperature Pulse Rate 72 79 Respiratory Rate 18 23 Blood Pressure Blood Pressure [Right Arm] 100/63 101/70 Pulse Oximetry 96 97 MDM - Extremity Injury (Lower) Lab Data Point of Care Testing Test Results Not applicable Imaging Data Ft x-ray: Radiologist's impression: [address] [address] XRay Report Signed Patient: Veronique Gould LMR#: [id number] : 7Acct:[id number] Age/Sex: 72 / FDate of Service: 03/05/18 Loc: ED Accession Number: [id number] Procedure: XR foot RT min 3V Ordering Provider: Katrin Dey D.O. PROCEDURE: XR FOOT RT MIN 3V INDICATIONS: injury TECHNIQUE: 3 views of the foot were acquired. [facility] 3[facility], 03/05/2018, 9:00. [facility], FOOT 3V RIGHT, 01/26/2016, 10:06. FINDINGS: Bones: There is dislocation of the second and third toes at the second and third metatarsophalangeal joints with lateral displacement of the second and third proximal phalanges. No definitive fractures. Post surgical changes are noted in the medial and lateral malleoli with surgical screws and fixation plate. There is osteopenia. Degenerative disease is present, moderate at the first metatarsophalangeal joint. Note is made of metatarsus adductus and hallux valgus. No suspicious bony lesions. Soft tissues: No tibiotalar joint effusion. Achilles tendon appears normal. IMPRESSION: 1. Dislocation of the second and third toes at the second third metatarsophalangeal joints. There is lateral displacement of the second and third toes. 2. Postsurgical changes in the right ankle. Please see separate ankle x-ray report. 3. Degenerative joint disease. 4. Osteopenia. Dictated by: Isis Billy M.D. on 03/05/2018 at 8:23 Approved by: Isis Billy M.D. on 03/05/2018 at 8:30 Ankle x-ray: Radiologist's impression: [place] [address] XRay Report Signed Patient: Veronique Gould LMR#: [id number] : 7Acct:[id number] Age/Sex: 72 / FDate of Service: 03/05/18 Loc: ED Accession Number: [id number] Procedure: XR ankle RT min 3V Ordering Provider: Katrin Dey D.O. PROCEDURE: XR ANKLE RT MIN 3V INDICATIONS: injury TECHNIQUE: 3 views of the ankle were acquired. COMPARISON: [facility], ANKLE 3 VIEWS RIGHT, 02/06/2013, 15:35. FINDINGS: Bones: Lateral and medial malleolar plate and screw fixation are identified. Overall appearance is unchanged. Hardware appears intact. Calcaneal spur is present. No acute osseous abnormalities are identified. Soft tissues: No tibiotalar joint effusion. Achilles tendon appears normal. IMPRESSION: Bimalleolar postsurgical changes. No visualized acute fracture or dislocation. However, if clinical concern and/or pain persist, short interval imaging followup in 7-10 days is recommended, as occult injury cannot be definitively excluded. Dictated by: Yu Gimenez M.D. on 03/05/2018 at 8:16 Approved by: Yu Gimenez M.D. on 03/05/2018 at 8:18 post reduction: Attestation: I personally reviewed and interpreted this imaging study as follows: My impression: reduction of 2/3rd metatarsophalangeal joint dislocation. Patient has no obvious fractures but discussed risk with patient. Radiologist's impression: [address] [address] XRay Report Signed Patient: Veronique Gould LMR#: [id number] : 1946Acct:[id number] Age/Sex: 72 / FDate of Service: 03/05/18 Loc: ED Accession Number: [id number] Procedure: XR foot RT 2V Ordering Provider: Katrin Dey D.O. PROCEDURE: XR FOOT RT 2V INDICATIONS: POST REDUCTION TOES TECHNIQUE: 3 views of the foot were acquired. COMPARISON: [facility], CR, XR FOOT RT MIN 3V, 03/05/2018, 9:00. [facility], CR, XR ANKLE RT MIN 3V, 03/05/2018, 9:00. FINDINGS: Bones: The previously noted 2nd and 3rd metatarsophalangeal joint dislocations are now anatomically aligned. No definite associated fractures are appreciated. However, there is slight irregularity identified involving the medial base of the 2nd and 4th proximal phalanges. Postoperative changes at the level of the ankle are again evident. There is a prominent plantar calcaneal spur. Moderate multilevel degenerative changes of the forefoot are evident. Soft tissues: No tibiotalar joint effusion. Achilles tendon appears normal. IMPRESSION: 1. Interval reduction of the 2nd and 3rd metatarsophalangeal joint dislocations. 2. Mild irregularity at the medial base of the 2nd and 4th proximal phalanges probably is degenerative. Subtle avulsion fractures are difficult to exclude. Dictated by: Marcelino Brunner M.D. on 03/05/2018 at 9:19 Approved by: Marcelino Brunner M.D. on 03/05/2018 at 10:50 MDM Narrative Medical decision making narrative: Dr. Medrano discussed findings and plan for follow up. Patient has walker at home, placed in splint and told partial weight bearing but to avoid on foot. Discharge Plan Departure Patient Disposition: Home Clinical Impression: Closed dislocation of second toe of right foot, Closed dislocation of third toe of right foot Discharge Date/Time: 03/05/18 11:48 Interventions: ED Discharge Assessment Last Done: 03/05/18 11:47 Instructions: Dislocated Toe Activity Restrictions/Additional Instructions: Follow-up with Orthopedic surgery in 3-5 days for recheck. Call today for an appointment. Take pain medication as prescribed, this medication can make you sleepy do not drive, perform hazards activities or make any major decisions while taking it. Continue to wear walking boot until cleared by Orthopedic surgery. Splint Care: Keep splint clean and dry. Elevated affected body part to decrease swelling. OK to use ice pack on the affected body part. Use for 15-20 minutes each time, for 5-6x per day. If you develop worsening pain, numbness, tingling, discoloration of the affected body part, loosen the splint by loosening the SUGEY wrap, and either see your doctor for an urgent re-assessment, or return to the Emergency Department. Return to the Emergency Department for any new or worsening symptoms. Prescriptions: New hydrocodone-acetaminophen [Niagara] 5-325 mg tablet 1 tab PO Q6H PRN (Reason: pain) Qty: 14 RF: 0 No Action aspirin 81 mg Tablet,Delayed Release (Dr/Ec) 81 mg PO DAILY Qty: 0 RF: 0 niacin (inositol niacinate) [Niacin Flush Free] 750 MG capsule 2,000 mg PO HS Qty: 0 RF: 0 cyclobenzaprine 5 mg tablet 5 mg PO Q8H PRN (Reason: muscle spasm) Qty: 20 RF: 3 levothyroxine 150 mcg capsule 150 mcg PO DAILY Qty: 90 RF: 0 levothyroxine [Synthroid] 125 mcg tablet 125 mcg PO DAILY Qty: 90 RF: 3 furosemide 40 MG tablet 40 mg PO Q OTHER DAY RF: 0 lovastatin 10 MG tablet 5 mg PO EVERY OTHER DAY RF: 0 Walker: Four Wheel 1 u miscellaneous DIRECTED RF: 0 carbidopa-levodopa 50 MG/200 MG tablet extended release 1 dose PO 5XD PRN (Reason: Restless Leg(S)) RF: 0 Diabetic Shoes 1 pkg miscellaneous DIRECTED RF: 0 levofloxacin 500 mg tablet 500 mg PO DAILY Qty: 10 RF: 0 bupropion HCl 150 mg tablet sustained-release 12 hr 150 mg PO BID RF: 0 pioglitazone [Actos] 15 MG tablet 15 mg PO DAILY RF: 0 gabapentin [Neurontin] 600 mg tablet 600 - 1,200 mg PO TID RF: 0 nkhoanzjdt-xcenletrmrpbq-qvih 50-325-40 mg tablet 1 - 2 tab PO Q4-6H PRN (Reason: Headache) RF: 0 temazepam 15 mg capsule 15 - 30 mg PO BEDTIME RF: 0 glimepiride 2 mg tablet 6 mg PO DAILY RF: 0 oxycodone-acetaminophen [Percocet] 5-325 mg tablet 1 - 2 tab PO Q4-6H MDD 8 PRN (Reason: pain) RF: 0 betamethasone acet,sod phos 6 mg/mL suspension 12 mg Intrabursal ONCE Qty: 1 RF: 0 Referrals: Corby Zurita MD [Primary Care Provider] - Maik Medrano MD [Physician] -
[2018-03-05] MEDS: MORPHINE 4 MG/ML INJ IM (08:47)
[2018-03-05] MEDS: KETAMINE 500 MG/5 ML INJ 75 MG IV (09:32)
--- NOTE | 2018-03-05 10:21 | PC.NURSE ---
fully awake. nad. ivy procedure well
--- NOTE | 2018-03-05 10:27 | PC.NURSE ---
[address] short leg splint on pt
[2018-03-05] MEDS: SODIUM CHLORIDE 0.9% 1,000 ML 1000 ML IV (11:34)
== END 2018-03-05 11:48 | disposition home or self-care (01) ==
PROVIDERS: Emergency Provider Emergency Medicine; PCP Family Medicine
DX: S93.104A Unspecified dislocation of right toe(s), initial encounter (principal); W18.30XA Fall on same level, unspecified, initial encounter
CPT/HCPCS: 26770; 29515; 36591; 73610; 73620; 73630; 93005; 96372; 99152; 99284; 99285; J2270

== ENCOUNTER 2018-03-22 10:51 | Emergency (ER) | payer MEDICARE, OTHER, SELFPAY ==
[2018-01-14 18:39] VITALS: BMI 33.7
[2018-03-22 11:13] VITALS: BP 141/80; PULSE 96; RESP 14; TEMP 36.2; O2SAT 100; BMI 32.5
[2018-03-22 11:46] LABS: Bacteria Urine Moderate (10-30); Calcium Oxalate Crystals Urine Few; Culture Indicated Urine Specimen Cultured; RBC Urine 1-5/HPF (0-5/HPF); Squamous Epithelial Cell Urine 0-1 /HPF; WBC Urine 30-100/HPF (0-5/HPF)
--- NOTE | 2018-03-22 12:57 | ED_ITS ---
HPI - Female Genitourinary <CLAIRE Singh - Last Filed: 03/22/18 22:23> General Chief complaint: Urogenital-Female Stated complaint: Back pain Time Seen by Provider: 03/22/18 12:55 Source: patient Mode of arrival: ambulatory Limitations: no limitations History of Present Illness HPI Narrative: 72-year-old female with history of hypothyroidism and is a nonsmoker here for complaint of having dysuria and increased urinary frequency with lower back pain that started last night. She denies any fevers or chills. She reports increased pain lower back with movement or palpation to the lower back. Positive p.o. intake. No nausea or vomiting. She does have pain into the suprapubic area no other abdominal pain. She denies any other concerns or complaints at this time. She denies any trauma to the lower back. She denies any loss of bladder or bowel control. She is ambulatory into the emergency room. MD Complaint: UTI Related Data Home Medications Medication Instructions Recorded Confirmed aspirin 81 mg PO DAILY #0 11/21/10 02/05/18 niacin (inositol niacinate) 2,000 mg PO HS #0 11/23/16 02/05/18 [Niacin Flush Free] Diabetic Shoes 1 pkg MISCELLANEOUS DIRECTED 01/14/18 02/05/18 Walker: Four Wheel 1 u MISCELLANEOUS DIRECTED 01/14/18 02/05/18 carbidopa-levodopa 1 dose PO 5XD PRN 01/14/18 03/05/18 furosemide 40 mg PO Q OTHER DAY 01/14/18 02/05/18 lovastatin 5 mg PO EVERY OTHER DAY 01/14/18 02/05/18 bupropion HCl 150 mg PO BID 03/05/18 03/05/18 gabapentin [Neurontin] 600 - 1,200 mg PO TID 03/05/18 03/05/18 glimepiride 6 mg PO DAILY 03/05/18 03/05/18 oxycodone-acetaminophen [Percocet] 1 - 2 tab PO Q4-6H PRN MDD 8 03/05/18 pioglitazone [Actos] 15 mg PO DAILY 03/05/18 03/05/18 Previous Rx's Medication Instructions Recorded cyclobenzaprine 5 mg tablet 5 mg PO Q8H PRN #20 tab 11/07/17 levothyroxine 150 mcg capsule 150 mcg PO DAILY #90 cap 11/21/17 levofloxacin 500 mg PO DAILY #10 tab 01/20/18 levothyroxine 125 mcg tablet 125 mcg PO DAILY #90 tab 02/06/18 hydrocodone-acetaminophen [[place]] 1 tab PO Q6H PRN #14 tab 03/05/18 vyekvnxftz-qurjrfjnucnpp-zjjhwpsb 1 - 2 tab PO Q4-6H PRN #60 tab 03/11/18 50 mg-325 mg-40 mg tablet temazepam 15 mg capsule See Label Instructions PO BEDTIME 03/19/18 #40 cap ciprofloxacin HCl 500 mg PO BID #14 tab 03/22/18 hydrocodone-acetaminophen 1 tab PO Q4-6H PRN #8 tab 03/22/18 Allergies Allergy/AdvReac Type Severity Reaction Status Date / Time amoxicillin [From AUGMENTIN] Allergy Mild RASH Verified 03/22/18 11:15 clavulanic acid Allergy Mild RASH Verified 03/22/18 11:15 [From AUGMENTIN] metformin [METFORMIN] AdvReac Severe SWELLING Verified 03/22/18 11:15 Review of Systems <CLAIRE Singh - Last Filed: 03/22/18 22:23> Constitutional Denies chills, Denies fever(s), Denies lethargy and Denies weakness Eyes Denies change in vision, Denies eye discharge, Denies irritation and Denies loss of vision ENT Ears, Nose, Mouth, and Throat: Denies change in voice, Denies neck pain and Denies sore throat Cardiovascular Denies chest pain, Denies irregular heart rhythm, Denies lightheadedness, Denies palpitations, Denies dyspnea, Denies dyspnea on exertion and Denies orthopnea Respiratory Denies cough, Denies dyspnea, Denies dyspnea on exertion and Denies wheezing Gastrointestinal Gastrointestinal: Denies abdominal pain, Denies change in bowel habits, Denies diarrhea, Denies nausea and Denies vomiting Genitourinary Reports dysuria and Reports flank pain Musculoskeletal Denies neck pain Integumentary/Breasts Denies pruritus, Denies erythema, Denies rash and Denies wounds Neurologic Denies confusion, Denies loss of vision and Denies weakness Psychiatric Denies anxiety, Denies confusion, Denies depression, Denies homicidal ideation and Denies suicidal ideation Endocrine Denies palpitations Allergic/Immunologic Denies wheezing Exam <CLAIRE Singh - Last Filed: 03/22/18 22:23> Initial Vital Signs Initial Vital Signs: Vital Signs Temperature 97.1 F L 03/22/18 11:13 Pulse Rate 96 H 03/22/18 11:13 Respiratory Rate 14 03/22/18 11:13 Blood Pressure 141/80 H 03/22/18 11:13 Pulse Oximetry 100 03/22/18 11:13 Const General: cooperative and well developed Nutritional Appearance: well nourished Orientation: alert, awake, oriented x3 and not confused [facility] Mouth: oral mucosae normal and mucous membranes abnormal Eyes Conjunctivae: conjunctivae normal Sclera: sclerae normal Pupils: PERRL EOM: EOM intact bilaterally Resp Effort & Inspection: normal respiratory effort, able to speak in complete sentences, no respiratory distress and no use of accessory muscles Auscultation: clear to auscultation bilaterally, no rales, no rhonchi and no wheezes Cardio Rate: regular rate Rhythm: regular rhythm Heart Sounds: no click, no gallops, no murmurs and no rubs GI Inspection: non-distended Palpation: soft, no hepatosplenomegaly, No guarding, No pulsatile mass and tender (Tenderness to the suprapubic region) Auscultation: normal bowel sounds General: No CVA tenderness Back/Spine/Pelvis Other: Tenderness the paraspinals of the lumbar spine bilaterally Skin General: no rashes or lesions noted, No jaundice and No petechiae Neuro General: alert, oriented x3, gait normal and no focal motor deficits Speech: speech normal <Alex Rabago DO - Last Filed: 03/23/18 07:03> Initial Vital Signs Initial Vital Signs: Vital Signs Temperature 97.1 F L 03/22/18 11:13 Pulse Rate 96 H 03/22/18 11:13 Respiratory Rate 14 03/22/18 11:13 Blood Pressure 141/80 H 03/22/18 11:13 Pulse Oximetry 100 03/22/18 11:13 Course <CLAIRE Singh - Last Filed: 03/22/18 22:23> Orders Ordered: Discontinued Medications Hydrocodone Bitart/Acetaminophen ([place] 5/325) 1 tab PO NOW ONE Stop: 03/22/18 13:08 Last Admin: 03/22/18 13:14 Dose: 1 tab Vital Signs - 8 hr 03/22/18 11:13 Temperature 97.1 F L Pulse Rate 96 H Respiratory Rate 14 Blood Pressure 141/80 H Pulse Oximetry 100 <Alex Rabago DO - Last Filed: 03/23/18 07:03> Orders Ordered: Discontinued Medications Hydrocodone Bitart/Acetaminophen ([place] 5/325) 1 tab PO NOW ONE Stop: 03/22/18 13:08 Last Admin: 03/22/18 13:14 Dose: 1 tab Vital Signs - 8 hr 03/22/18 11:13 Temperature 97.1 F L Pulse Rate 96 H Respiratory Rate 14 Blood Pressure 141/80 H Pulse Oximetry 100 MDM - Female Genitourinary <CLAIRE Singh - Last Filed: 03/22/18 22:23> Lab Data Lab Results 03/22/18 Range/Units 11:33 Urine RBC 1-5/hpf (0-5/HPF) Urine WBC 30-100/hpf H (0-5/HPF) Ur Squamous Epith Cells 0-1 /hpf Calcium Oxalate Crystal Few H (None) Urine Bacteria Moderate (10-30) H (None) Ur Culture Indicated? Specimen cultured Micro UA Comment Not Reportable Urine Dip Bedside Urine Glucose Negative Bedside Urine Bilirubin + 1 Bedside Urine Ketone - Negative Urine Specific [place] 1.030 Bedside Urine Occult Blood - Negative Bedside Urine pH 6.0 Bedside Urine Protein + 30 Bedside Urine Urobilinogen - Negative Bedside Urine Nitrite - Negative Bedside Urine Leukocytes ++ 125 Esterase MDM Narrative Medical decision making narrative: Urinalysis indicates urinary tract infection. Differential of the back pain between a muscle skeletal and the flank pain secondary to starting a pyelonephritis. Will cover her with ciprofloxacin. She is also prescribed Pyridium to help with the dysuria. Patient requested pain medications she is given a handful of [place]. Urine culture is pending. Last urine culture and sensitivity showed E coli that was pansensitive. Also [id number]-[id number] ibuprofen. Plenty of fluids. Follow up with primary care provider the next few days for re-evaluation. For any worsening symptoms return to the emergency room. <Alex Rabago DO - Last Filed: 03/23/18 07:03> Lab Data Lab Results 03/22/18 Range/Units 11:33 Urine RBC 1-5/hpf (0-5/HPF) Urine WBC 30-100/hpf H (0-5/HPF) Ur Squamous Epith Cells 0-1 /hpf Calcium Oxalate Crystal Few H (None) Urine Bacteria Moderate (10-30) H (None) Ur Culture Indicated? Specimen cultured Micro UA Comment Not Reportable Urine Dip Bedside Urine Glucose Negative Bedside Urine Bilirubin + 1 Bedside Urine Ketone - Negative Urine Specific [place] 1.030 Bedside Urine Occult Blood - Negative Bedside Urine pH 6.0 Bedside Urine Protein + 30 Bedside Urine Urobilinogen - Negative Bedside Urine Nitrite - Negative Bedside Urine Leukocytes ++ 125 Esterase Discharge Plan Departure Patient Disposition: Home Clinical Impression: UTI (urinary tract infection), Hypertension Discharge Date/Time: 03/22/18 13:38 Interventions: ED Discharge Assessment Last Done: 03/22/18 13:35 Instructions: DI for Urinary Tract Infection (UTI) Activity Restrictions/Additional Instructions: Urinalysis indicates urinary tract infection. You are placed on antibiotic use as directed. Use lubc-vww-boqafqz ibuprofen as needed for any discomfort. Pyridium as prescribed to help with pain with urination use as directed. Small amount of [place] is given for breakthrough pain not covered by the ibuprofen. Plenty of fluids. Follow up with primary care for the next few days. For any worsening symptoms return to the emergency room. Prescriptions: New ciprofloxacin HCl 500 mg tablet 500 mg PO BID Qty: 14 RF: 0 hydrocodone-acetaminophen 5-325 mg tablet 1 tab PO Q4-6H PRN (Reason: pain) Qty: 8 RF: 0 No Action aspirin 81 mg Tablet,Delayed Release (Dr/Ec) 81 mg PO DAILY Qty: 0 RF: 0 niacin (inositol niacinate) [Niacin Flush Free] 750 MG capsule 2,000 mg PO HS Qty: 0 RF: 0 cyclobenzaprine 5 mg tablet 5 mg PO Q8H PRN (Reason: muscle spasm) Qty: 20 RF: 3 levothyroxine 150 mcg capsule 150 mcg PO DAILY Qty: 90 RF: 0 levothyroxine [Synthroid] 125 mcg tablet 125 mcg PO DAILY Qty: 90 RF: 3 mxdmktarva-kmimpyypyxnkm-dvfl 50-325-40 mg tablet 1 - 2 tab PO Q4-6H PRN (Reason: Headache) Qty: 60 RF: 2 temazepam 15 mg capsule See Label Instructions PO BEDTIME Qty: 40 RF: 0 furosemide 40 MG tablet 40 mg PO Q OTHER DAY RF: 0 lovastatin 10 MG tablet 5 mg PO EVERY OTHER DAY RF: 0 Walker: Four Wheel 1 u miscellaneous DIRECTED RF: 0 carbidopa-levodopa 50 MG/200 MG tablet extended release 1 dose PO 5XD PRN (Reason: Restless Leg(S)) RF: 0 Diabetic Shoes 1 pkg miscellaneous DIRECTED RF: 0 levofloxacin 500 mg tablet 500 mg PO DAILY Qty: 10 RF: 0 hydrocodone-acetaminophen [[place]] 5-325 mg tablet 1 tab PO Q6H PRN (Reason: pain) Qty: 14 RF: 0 bupropion HCl 150 mg tablet sustained-release 12 hr 150 mg PO BID RF: 0 pioglitazone [Actos] 15 MG tablet 15 mg PO DAILY RF: 0 gabapentin [Neurontin] 600 mg tablet 600 - 1,200 mg PO TID RF: 0 glimepiride 2 mg tablet 6 mg PO DAILY RF: 0 oxycodone-acetaminophen [Percocet] 5-325 mg tablet 1 - 2 tab PO Q4-6H MDD 8 PRN (Reason: pain) RF: 0 betamethasone acet,sod phos 6 mg/mL suspension 12 mg Intrabursal ONCE Qty: 1 RF: 0 Referrals: Corby Zurita MD [Primary Care Provider] - <Alex Rabago DO - Last Filed: 03/23/18 07:03> Cosign ED Attending Daniel Attestation: I was available for consultation during this patient's emergency department encounter
[2018-03-22 13:00] VITALS: BP 156/71; PULSE 74; RESP 18; O2SAT 99
[2018-03-22] MEDS: HYDROCODONE/ACET 5/325 TABLET 1 TAB PO (13:14)
[2018-03-22 13:35] VITALS: BP 140/70; PULSE 72; RESP 20; TEMP 36.9; O2SAT 100
== END 2018-03-22 13:38 | disposition home or self-care (01) ==
PROVIDERS: Emergency Medicine; Emergency Provider Nurse Practitioner Family; PCP Family Medicine
DX: N39.0 Urinary tract infection, site not specified (principal); I10 Essential (primary) hypertension
CPT/HCPCS: 81003; 81015; 87077; 87086; 87186; 99283

== ENCOUNTER → 2018-03-27 12:47 | Outpatient (CLI) | payer MEDICARE, OTHER, SELFPAY ==
[2018-01-14 18:39] VITALS: BMI 33.7
[2018-03-27 14:04] LABS: Blood Urea Nitrogen 18 mg/dL (7-17); Estimated Glomerular Filt Rate 54.7 mL/min (>60)
[2018-03-27 14:19] LABS: Hemoglobin A1C% w Est Avg Glu 8.8 % (4.0-6.0)
[2018-03-27 14:34] LABS: TSH w/ Reflex to FT4 6.69 uIU/mL (0.47-4.68)
[2018-03-27 14:39] LABS: Ferritin 9.2 ng/mL (11.1-264)
[2018-03-27 18:53] LABS: Free T4, Direct Thyroxine 1.22 ng/dL (0.78-2.19)
== END ==
PROVIDERS: PCP Family Medicine; Visit Provider Family Medicine
DX: E03.9 Hypothyroidism, unspecified (principal); E11.9 Type 2 diabetes mellitus without complications; R53.1 Weakness
CPT/HCPCS: 36415; 82565; 82728; 83036; 84439; 84443; 84520

== ENCOUNTER 2018-04-09 14:05 | Outpatient (CLI) | payer MEDICARE, OTHER, SELFPAY ==
[2018-01-14 18:39] VITALS: BMI 33.7
[2018-04-09] VITALS (7 sets, daily range): BP systolic 104–135; BP diastolic 53–77; PULSE 78–83; RESP 9–18; TEMP 36.3; O2SAT 95–100
--- NOTE | 2018-04-09 14:06 | DI.RAD.S_ITS ---
PROCEDURE: PAIN L/S FACET INJ/BLK 1ST CHANDLER COMPARISON: None. INDICATIONS: SPONDYLOSIS FINDINGS: Fluoroscopic imaging was performed to verify placement of spinal needles at the level of L5 and S1 as indicated on the films. Appropriate needle tip placement was confirmed with injection of iodinated contrast. Dictated by: Miki Toledo M.D. on 04/09/2018 at 20:49 Approved by: Miki Toledo M.D. on 04/09/2018 at 20:51
[2018-04-09] MEDS: MIDAZOLAM 5 MG/5 ML VIAL IV (15:05)
--- NOTE | 2018-04-09 15:23 | PC.NURSE ---
1522 end of procedure. pt tolerated well. able to get off table without difficulty. Transferred pt via wheelchair to pre procedure room for continued monitoring by Bridget FAUST.
--- NOTE | 2018-04-09 15:32 | P.PCN_ITS ---
Procedures Date/Time Date of procedure: 04/09/18 Time of procedure: 15:31 General Procedure description: POST OP DIAGNOSIS 1. FACET ARTHROPATHY PROCEDURES 1. BILATERAL- L5 and S1 MB BLOCKS PHYSICIAN: DO FERNANDO Fuchs Veronique is referred by Dr. Zurita for treatment of Bilateral Axial LBP. DESCRIPTION OF PROCEDURE Fluoroscopically guided, contrast-controlled bilateral L5 and S1 medial branch blocks with 0.5cc of 0.5% Marcaine. Following denial of allergy and review of potential side effects and complications, including, but not necessarily limited to, infection, allergic reaction, local tissue breakdown, nerve injury, paralysis, stroke and possible , the patient indicated that the patient understood and agreed to proceed. An informed consent document was signed by the patient, witnessed by a nurse, and placed in the patient's chart. After review of previous anaesthesic history and IV conscious sedation the patient was deemed safe to proceed with todays procedure with IV conscious sedation as ASA class II designation. Safety time-out was performed to confirm patient ID, procedure to be performed and site of procedure. IV sedation was accomplished with a combination of 5mg of Versed was administered by the RN after DO order, titrated to patient comfort during the course of the procedure while the patient remained responsive to all verbal commands In the prone position, following sterile prep and drape of the lumbar region, the right L5 and S1 anatomical location of the medial branch of the dorsal ramus was identified fluoroscopically. Subsequently an anesthetic skin wheal using 1% lidocaine solution was initiated at each of the anatomical spots. Subsequently then a 22-gauge 3.5-inch spinal needle was atraumatically introduced and advanced under fluoroscopic guidance at each of the corresponding sites at the right L5 and S1 MB. After negative aspiration, 0.2 cc of Isovue 200 was injected, confirming placement without vascular or intrathecal uptake. Subsequently then 0.5 cc of 0.5% Marcaine solution was injected at each of the corresponding sites at the right L5 and S1 medial branch locations. The identical procedure was replicated on the left. The patient tolerated the procedure well without signs or symptoms of complications. The patient tolerated the procedure well without signs or symptoms of complications prior to transfer to the recovery area continued monitoring without incident. Post-procedure, the patient was monitored initiating provocative activities to measure the amount of relief from block of the facetogenic pain. The patient reported a VAS of 7 prior to the procedure and a post-procedure VAS of 1. It has been a pleasure to assist in the diagnostic and therapeutic care of your patient. Total Fluoroscopy Time: 24.8 seconds Total Conscious Sedation Time: 24min POST OP INSTRUCTIONS The patient was provided with a Pain Log to complete over the next several hours and subsequent days prior to the patient's follow up with the ordering physician. 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 The patient is aware , was provided, once again, with a Pain Log and will follow up with the referring physician for review and clinical correlation Zachary Wong DO Complications: none
--- NOTE | 2018-04-09 15:32 | PC.NURSE ---
ACCEPTED CARE OF PT IN STABLE CONDITION IN POST PROC AREA.
[2018-04-09] MEDS: IOPAMIDOL 15 ML VIAL 3 ML INJ (15:36)
[2018-04-09] MEDS: BETAMETHASONE 30 MG/5 ML MDV 12 MG INJ (15:37)
[2018-04-09] MEDS: BUPIVACAINE 0.5% (PF) VIAL 2 ML INJ (15:37)
[2018-04-09] MEDS: LIDOCAINE 1% 20 ML INJ 10 ML INJ (15:37)
--- NOTE | 2018-04-10 17:07 | PC.NURSE ---
Follow up call made today post one day injection. pt did not answer phone so message was left.
== END 2018-04-09 15:52 | disposition home or self-care (01) ==
PROVIDERS: PCP Family Medicine; Visit Provider Physical Medicine & Rehabilitation
DX: M47.817 Spondylosis without myelopathy or radiculopathy, lumbosacral region (principal)
CPT/HCPCS: 64493; 99152; J0702; J2250

== ENCOUNTER → 2018-05-15 12:27 | Outpatient (CLI) | payer MEDICARE, OTHER, SELFPAY ==
[2018-01-14 18:39] VITALS: BMI 33.7
[2018-05-15 13:08] LABS: Add Manual Diff / Slide Review NO; Basophils Absolute Auto 0 /uL (0-100); Basophils Percent Auto 0.3 % (0-2); Eosinophils Absolute Auto 300 /uL (0-450); Hematocrit 37.7 % (36-46); Hemoglobin 11.8 g/dL (12.0-16.0); Lymphocytes Absolute Auto 2100 /uL (1100-4500); Lymphocytes Percent Auto 27.9 % (25-40); Mean Corpuscular HGB Conc 31.2 % (30-36); Mean Corpuscular Hemoglobin 26.7 PG (26-34); Mean Corpuscular Volume 85.6 fL (80-100); Monocytes Absolute Auto 700 /uL (0-900); Neutrophils Absolute Auto 4300 /uL (1500-7000); Neutrophils Percent Auto 57.8 % (50-75); Platelet Count 244 X10^3/uL (150-400); Red Blood Cell Count 4.41 X10^6/uL (4.0-5.2); Red Cell Distribution Width 18.3 % (11.6-14.8); White Blood Cell Count 7.4 X10^3/uL (4.5-11.0)
[2018-05-15 13:19] LABS: Blood Urea Nitrogen 22 mg/dL (7-17); Carbon Dioxide 21 mmol/L (22-32); Chloride 108 mmol/L (98-107); Cholesterol 196 mg/dL (140-199); Estimated Glomerular Filt Rate 48.8 mL/min (>60); Glucose 206 mg/dL (80-110); HDL Cholesterol 44 mg/dL (40-60); HEMOLYSIS < 15 (0-50); LDL Cholesterol Calculated 96 mg/dL (<100); Potassium 5.1 mmol/L (3.4-5.1); Sodium 139 mmol/L (137-145); Triglycerides 281 mg/dL (35-150)
[2018-05-15 14:45] LABS: Thyroid Stimulating Hormone 1.06 uIU/mL (0.47-4.68)
[2018-05-15 16:00] LABS: Creatinine Urine Random 172.2 mg/dL
[2018-05-15 16:04] LABS: Microalbumi Creatinin Ratio Ur 4.6 ug/mg CR (<30); Microalbumin Urine Random 0.8 mg/dL (0-1.6)
== END ==
PROVIDERS: PCP Family Medicine; Visit Provider Family Medicine
DX: E11.9 Type 2 diabetes mellitus without complications (principal); E03.9 Hypothyroidism, unspecified; E78.2 Mixed hyperlipidemia; I10 Essential (primary) hypertension
CPT/HCPCS: 36415; 80048; 80061; 82043; 82570; 83036; 84443; 85025

== ENCOUNTER 2018-06-04 09:45 | Day surgery (SDC) | payer MEDICARE, OTHER, SELFPAY ==
[2018-01-14 18:39] VITALS: BMI 33.7
[2018-06-04 10:01] VITALS: BP 136/81; PULSE 95; RESP 16; TEMP 36.3; O2SAT 95; BMI 26.6
[2018-06-04] MEDS: ONDANSETRON 4 MG/2 ML INJ IV (10:28)
[2018-06-04] MEDS: LACTATED RINGERS 1,000 ML 200 ML IV (10:28)
--- NOTE | 2018-06-04 10:39 | PM.PREOP ---
Pre-operative Note Interval Note History & Physical reviewed/Exam performed by Physician: Yes Changes to H&P: No ASA Class (for procedural sedation): III
[2018-06-04] MEDS: TETRACAINE/BENZOCAINE/BUTAMBEN (CETACAINE) BOTTLE 1 SPRAY TOP (10:40)
[2018-06-04] MEDS: LIDOCAINE 4% SOLN 50 ML 20 ML TOP (10:41)
[2018-06-04] MEDS: MIDAZOLAM 5 MG/5 ML VIAL IV (10:54)
[2018-06-04] MEDS: fentaNYL 250 MCG/5 ML INJ IV (10:54)
--- NOTE | 2018-06-04 10:54 | PM.OP.ENDO ---
Operative Date/Time/Diagnoses Date of procedure: 06/04/18 Time of procedure: 10:55 Pre-op diagnosis: Upper abdominal pain persistent nausea and vomiting Post-op diagnosis: same (No explanation for his symptoms based on this study) Procedure & Clinicians Study performed: EGD Same procedure as scheduled: Yes Indications: Determine cause of persistent nausea and vomiting and epigastric pain Surgeon: Nasir Hernandez Procedure Notes SCOAP/Timeout: Performed Procedure in detail: The patient was placed in the left lateral decubitus position after having topical anesthetic applied to her oropharynx. A bite block was inserted after sedation with fentanyl and Versed. Scope was inserted through the bite block and under direct vision I entered the esophagus. The esophagus was normal. GE junction at 39 cm from the incisors. The stomach has been partially resected. There appears to be a gastrojejunostomy side of stomach to end of jejunum. I passed easily through a widely patent anastomosis down to the complete depth of the scope. The gastric remnant appeared normal as did anastomotic region. The jejunum was unremarkable. The scope was brought back into the stomach which was examined and the scope was slowly removed. No lesions were seen. No explanation for her nausea and vomiting was found. The patient tolerated the procedure well. 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
[2018-06-04 11:01] VITALS: BP 108/62; PULSE 86; RESP 15; TEMP 36.2; O2SAT 96
[2018-06-04 11:05] VITALS: BP 94/58; PULSE 84; RESP 15; O2SAT 97
[2018-06-04 11:10] VITALS: BP 110/60; PULSE 78; RESP 15; O2SAT 96
[2018-06-04 11:25] VITALS: BP 111/60; PULSE 75; RESP 15; TEMP 36.6; O2SAT 97
[2018-06-04] MEDS: OXYCODONE/ACETAMINOPHEN 5/325 TABLET 1 TAB PO (12:15)
--- NOTE | 2018-06-04 13:10 | SUR.PHASEII ---
Pt c/o 8/10 pain upon arrival to phase 2. Dr. Hernandez notified. gave 1 tablet PO percocet at 1215. Dr. 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 Pt and spouse stated that they understood these instructions. At [address] Hernandez's office called to say that an ultrasound was ordered for the pt. I tried to arrange for the pt to have it before d/c but US did not know when they would be able to do it and preferred that the pt wait in the waiting room after being discharged from phase 2. I d/c'd the pt to the waiting room with spouse in w/c at 1253. VSS, pt reports pain now at 6/10.
== END 2018-06-04 12:53 | disposition home or self-care (01) ==
PROVIDERS: PCP Family Medicine; Visit Provider Specialist
PROC: 0DJ08ZZ Inspection of Upper Intestinal Tract, Via Natural or Artificial Opening Endoscopic (ICD-10-PCS; CPT 43235; principal; 2018-06-04 07:45)
DX: R11.2 Nausea with vomiting, unspecified (principal); R10.9 Unspecified abdominal pain; E11.9 Type 2 diabetes mellitus without complications; E03.9 Hypothyroidism, unspecified; G89.29 Other chronic pain; M54.9 Dorsalgia, unspecified; Z98.84 Bariatric surgery status
CPT/HCPCS: 43235; 99152; J2250; J2405; J3010

== ENCOUNTER → 2018-06-06 09:14 | Outpatient (CLI) | payer MEDICARE, OTHER, SELFPAY ==
[2018-01-14 18:39] VITALS: BMI 33.7
--- NOTE | 2018-06-06 | DI.US.S_ITS ---
PROCEDURE: US ABDOMEN COMPLETE INDICATIONS: RIGHT UPPER QUADRANT PAIN NAUSEA AND VOMITING TECHNIQUE: Real-time scanning was performed of the abdominal and retroperitoneal organs, with image documentation. COMPARISON: [facility], RG, CT ABDOMEN/PELVIS WITH CONTRAST, 05/18/2018, 21:56. FINDINGS: Liver: Liver is normal in size and homogeneous in echotexture. Gallbladder: The gallbladder is distended likely related to fasting state. No gallbladder wall thickening, gallstones, or pericholecystic fluid. Negative sonographic Pelaez's. Biliary ducts: Intrahepatic bile ducts are non-dilated. Extrahepatic bile duct caliber measures 5 mm. Normal is 6-7 mm or less in diameter, or 10 mm or less post-cholecystectomy. Pancreas: Visualized portions of the pancreas are sonographically normal. Spleen: Spleen is normal in size and homogeneous in echotexture. Kidneys: Kidneys are normal in size and echotexture. Right kidney measures 10.4 cm long; left kidney measures 9.1 cm long. No hydronephrosis or left-sided nephrolithiasis. Small right renal stones identified with the largest measuring 3 mm in size. No right-sided hydronephrosis. No solid masses. Aorta: Visualized aorta is normal in caliber at less than 3 cm. Iliacs: Proximal common iliac arteries are normal in caliber at less than 2.5 cm. IVC: Intrahepatic inferior vena cava is patent. Miscellaneous: No free abdominal fluid. IMPRESSION: 1. The gallbladder is distended, likely related to fasting state. No sonographic evidence for acute cholecystitis. 2. Nonobstructing right nephrolithiasis measuring up to 3 mm in maximum dimension. 3. Otherwise, no acute sonographic abnormalities. Dictated by: Jarvis Taylor M.D. on 06/06/2018 at 13:48 Approved by: Jarvis Taylor M.D. on 06/06/2018 at 13:52
== END ==
PROVIDERS: PCP Family Medicine; Visit Provider Specialist
DX: R10.11 Right upper quadrant pain (principal); R11.2 Nausea with vomiting, unspecified; N20.0 Calculus of kidney
CPT/HCPCS: 76700

== ENCOUNTER → 2018-07-20 11:32 | Outpatient (CLI) | payer MEDICARE, OTHER, SELFPAY ==
[2018-01-14 18:39] VITALS: BMI 33.7
[2018-07-20 12:42] LABS: Alanine Aminotransferase 11 IU/L (9-52); Albumin 3.1 g/dL (3.5-5.0); Alkaline Phosphatase 81 U/L (38-126); Amylase 49 U/L (30-110); Aspartate Aminotransferase 15 IU/L (14-36); BUN Creatinine Ratio 15.7 (6-22); Bilirubin Total 0.2 mg/dL (0.2-1.3); Blood Urea Nitrogen 11 mg/dL (7-17); Calcium 9.1 mg/dL (8.4-10.2); Carbon Dioxide 24 mmol/L (22-32); Chloride 108 mmol/L (98-107); Estimated Glomerular Filt Rate > 60.0 mL/min (>60); Glucose 75 mg/dL (80-110); HEMOLYSIS < 15 (0-50); Hemoglobin A1C% w Est Avg Glu 5.6 % (4.0-6.0); Lipase 61 U/L (23-300); Potassium 4.7 mmol/L (3.4-5.1); Sodium 139 mmol/L (137-145); Total Protein 6.1 g/dL (6.3-8.2)
[2018-07-20 12:57] LABS: Add Manual Diff / Slide Review YES; Hematocrit 37.4 % (36-46); Mean Corpuscular Hemoglobin 29.7 PG (26-34); Mean Corpuscular Volume 92.9 fL (80-100); Platelet Count 344 X10^3/uL (150-400); Red Blood Cell Count 4.02 X10^6/uL (4.0-5.2); White Blood Cell Count 6.9 X10^3/uL (4.5-11.0)
[2018-07-20 13:26] LABS: Neutrophils Absolute Manual 5934 /uL (3000-5900); Total Cells Counted 100
[2018-07-20 13:27] LABS: Anisocytosis 3+; Macrocytosis 1+
== END ==
PROVIDERS: PCP Family Medicine; Visit Provider Family Medicine
DX: E11.9 Type 2 diabetes mellitus without complications (principal); R11.0 Nausea; R63.4 Abnormal weight loss
CPT/HCPCS: 36415; 80053; 82150; 82728; 83036; 83690; 84443; 85025

== ENCOUNTER → 2018-07-31 13:46 | Outpatient (CLI) | payer MEDICARE, OTHER, SELFPAY ==
[2018-01-14 18:39] VITALS: BMI 33.7
--- NOTE | 2018-07-31 14:06 | DI.MRI.S_ITS ---
PROCEDURE: MR HEAD/BRAIN WO CON INDICATIONS: mem imp. post fall TECHNIQUE: Non-contrast axial T1 spin echo, axial T2 fast spin echo, sagittal and axial FLAIR, coronal T2 fast spin echo, axial gradient echo, axial diffusion and ADC through the brain. COMPARISON: [facility], MR, BRAIN WITH AND WITHOUT CONTRAS, 08/11/2010, 16:49. [facility], RG, CT HEAD W/O CONTRAST, 05/26/2018, 0:50. FINDINGS: Image quality: Excellent. CSF spaces: Ventricles appear symmetric in size and shape. Basal cisterns are patent. No extra-axial fluid collections. Brain: No intracranial bleeds or mass effects. There is cerebral volume loss for age. There are periventricular and deep white matter chronic small vessel ischemic changes. Brainstem appears normal. Diffusion-weighted images show no acute ischemic insults. No chronic ischemic insults. Normal intravascular flow voids are present. Skull and face: Calvarial bone marrow is normal in signal. Orbits are normal. Sinuses: Sinuses and mastoids are clear. IMPRESSION: 1. No acute intracranial process. 2. Mild atrophy and chronic microvascular ischemic changes. Dictated by: Yu Gimenez M.D. on 07/31/2018 at 16:42 Approved by: Yu Gimenez M.D. on 07/31/2018 at 16:43
== END ==
PROVIDERS: PCP Family Medicine; Visit Provider Family Medicine
DX: R41.3 Other amnesia (principal)
CPT/HCPCS: 70551

== ENCOUNTER 2018-08-04 12:40 | Inpatient (IN) | payer MEDICARE, OTHER, SELFPAY ==
[2018-01-14 18:39] VITALS: BMI 33.7
[2018-08-04] VITALS (7 sets, daily range): BP systolic 106–126; BP diastolic 60–75; PULSE 80–131; RESP 11–18; TEMP 36.1–36.6; O2SAT 98–100; BMI 28.1
--- NOTE | 2018-08-04 13:05 | ED.GIBLEED ---
HPI - GI Bleed General Chief complaint: GI Bleed Stated complaint: blood in stool,dizzy Time Seen by Provider: 08/04/18 12:41 Source: patient and family Mode of arrival: wheelchair Limitations: no limitations History of Present Illness HPI Narrative: 73-year-old female nonsmoker with history of stomach surgery at [facility] 5 years ago presents with dark and tarry stool since as well as dizziness, weakness and lightheadedness. Patient denies any bright red stool. She has had no vomiting and denies any history bright red vomit nor known varices. She does have a history of ulcers. She does not take any blood thinners and does not drink any alcohol. She does have some mild epigastric pain MD complaint: melena Onset (ago): day(s) Pain Consistency: intermittent Severity: moderate Relieving factors: none Exacerbating factors: none Associated symptoms: abdominal pain, nausea, loss of appetite, shortness of breath, syncope (near syncope) and weakness Related Data Home Medications Medication Instructions Recorded Confirmed Diabetic Shoes 1 pkg MISCELLANEOUS DIRECTED 01/14/18 07/29/18 Walker: Four Wheel 1 u MISCELLANEOUS DIRECTED 01/14/18 07/29/18 bupropion HCl 150 mg PO BID 03/05/18 08/04/18 carbidopa ER 50 mg-levodopa 200 mg 1 tab PO QID PRN tab 06/04/18 08/04/18 tablet,extended release ferrous sulfate [FeroSul] 1 tab PO BID 08/04/18 08/04/18 hydrocodone-acetaminophen 1 tab PO QID PRN 08/04/18 08/04/18 midodrine 10 mg PO DAILY 08/04/18 08/04/18 temazepam 1 tab PO BEDTIME 08/04/18 08/04/18 Previous Rx's Medication Instructions Recorded glimepiride 2 mg tablet 8 mg PO DAILY #360 tab 06/04/18 citalopram 20 mg tablet 40 mg PO DAILY #60 tab 07/04/18 levothyroxine 175 mcg tablet 175 mcg PO DAILY #90 tab 07/22/18 Allergies Allergy/AdvReac Type Severity Reaction Status Date / Time amoxicillin [From AUGMENTIN] Allergy Mild RASH Verified 08/04/18 12:58 clavulanic acid Allergy Mild RASH Verified 08/04/18 12:58 [From AUGMENTIN] metformin [METFORMIN] AdvReac Severe SWELLING Verified 08/04/18 12:58 Review of Systems Constitutional Denies chills, Denies fever(s), Denies lethargy and Reports weakness Eyes Denies change in vision, Denies eye discharge, Denies irritation and Denies loss of vision ENT Ears, Nose, Mouth, and Throat: Denies change in voice, Denies neck pain and Denies sore throat Cardiovascular Denies chest pain, Denies irregular heart rhythm, Denies lightheadedness, Denies palpitations, Denies dyspnea, Denies dyspnea on exertion and Denies orthopnea Respiratory Denies cough, Denies dyspnea, Denies dyspnea on exertion and Denies wheezing Gastrointestinal Gastrointestinal: Denies abdominal pain, Reports melena, Denies change in bowel habits, Denies diarrhea, Denies nausea and Denies vomiting Genitourinary Denies hematuria, Denies flank pain, Denies urinary incontinence and Denies urinary urgency Musculoskeletal Denies neck pain Integumentary/Breasts Denies pruritus, Denies erythema, Denies rash and Denies wounds Neurologic Denies confusion, Denies loss of vision and Reports weakness Psychiatric Denies anxiety, Denies confusion, Denies depression, Denies homicidal ideation and Denies suicidal ideation Endocrine Denies palpitations Hematologic/Lymphatic Denies easy bruising Allergic/Immunologic Denies wheezing FOR[facility]LY [facility] Medical History Chronic back pain (Chronic ~2009) Neuropathy (Chronic ~2008) Headache (Chronic ~1989) Migraines (Chronic ~1989) Restless leg syndrome (Chronic ~1989) Lupus (Chronic ~1999) Arthritis (Chronic) Anemia (Chronic ~2004) Foot pain (Chronic ~2010) Fractures (Chronic ~2011) Gastric ulcer (Chronic ~1991) History of irregular menstrual cycles (Chronic ~1989) Hyperthyroidism (Chronic ~2004) Ovarian cyst (Chronic ~1999) Painful menstrual periods (Chronic ~1978) Chicken pox (Resolved) Measles (Resolved) Mumps (Resolved) Surgical History Gastric bypass status for obesity (Acute) H/O hernia repair (Acute) S/P foot surgery, right (Acute) Hx of resection of stomach (Resolved) Family History Grandfather No problems noted. Grandmother No problems noted. Mother No problems noted. Son Diabetes mellitus Social History marital status: household members: spouse Smoking Status: Never smoker alcohol intake: never substance use type: does not use Family History Grandfather No problems noted. Grandmother No problems noted. Mother No problems noted. Son Diabetes mellitus Social History marital status: household members: spouse Smoking Status: Never smoker alcohol intake: never substance use type: does not use Exam Narrative Exam Narrative: GENERAL: 73-year-old female appears weak and feeling under the weather. HEAD: Atraumatic. Normocephalic. No temporal or scalp tenderness. EYES: Pale conjunctiva Pupils equal round and reactive. Extraocular motions intact. No scleral icterus. No injection or drainage. ENT: Nose without bleeding, purulent drainage or septal hematoma. Throat without erythema, tonsillar hypertrophy or exudate. Uvula midline. Airway patent. NECK: Trachea midline. No JVD or lymphadenopathy. Supple, nontender, no meningeal signs. CARDIOVASCULAR: Regular rate and rhythm without murmurs, gallops, or rubs. RESPIRATORY: Clear to auscultation. Breath sounds equal bilaterally. No wheezes, rales, or rhonchi. GASTROINTESTINAL: Abdomen soft, non-tender, nondistended. No hepato-splenomegaly, or palpable masses. No guarding. RECTAL: no obvious blood, no stool for hemoccult. Performed with female nursing sociology instructor at the bedside EXTREMITIES: No clubbing, cyanosis, or edema. No joint tenderness, effusion, or edema noted. BACK: Nontender without deformity or crepitance. No flank tenderness. NEURO: AOx3. SKIN: No rash or erythema. Initial Vital Signs Initial Vital Signs: Vital Signs Temperature 97.9 F 08/04/18 12:40 Pulse Rate 131 H 08/04/18 12:40 Respiratory Rate 16 08/04/18 12:40 Blood Pressure 126/67 08/04/18 12:40 Pulse Oximetry 99 08/04/18 12:40 Course Orders Ordered: ED Orders 08/04/18 13:05 Complete Blood Count AUTO DIFF Stat Comprehensive Metabolic Panel Stat Partial Thromboplastin Time Stat Prothrombin Time INR Stat Type and Screen Stat 08/04/18 15:07 Urinalysis Sreen (Dip Only) Stat Urine Drug Screen, Rapid Stat Education, smoking cessation ONGOING 08/04/18 15:11 Consult to Physician Routine 08/04/18 15:30 B Type Natriuretic Peptide Routine Basic Metabolic Panel Stat Complete Blood Count AUTO DIFF Stat Magnesium Stat Prolactin Stat 08/04/18 17:00 Complete Blood Count AUTO DIFF Stat 08/05/18 05:15 Basic Metabolic Panel DAILY Hydrocodone Bitart/Acetaminophen (Page 5/325) 1 tab PO QID PRN PRN Reason: Back Pain Last Admin: 08/04/18 16:48 Dose: 1 tab Bupropion HCl (Wellbutrin Sr) 150 mg PO BID FRANCINE Carbidopa/Levodopa (Sinemet Er 50-200 Tab) 1 each PO QID PRN PRN Reason: restless legs Last Admin: 08/04/18 16:51 Dose: 1 each Citalopram Hydrobromide (Celexa) 40 mg PO DAILY FRANCINE Ferrous Sulfate (Ferrous Sulfate) 325 mg PO BID FRANCINE Glimepiride (Amaryl) 8 mg PO DAILY FRANCINE Sodium Chloride (Normal Saline 0.9%) 1,000 mls @ 100 mls/hr IV CONT FRANCINE Last Admin: 08/04/18 16:23 Dose: 100 mls/hr Levothyroxine Sodium (Synthroid) 100 mcg PO 0600 FRANCINE Levothyroxine Sodium (Synthroid) 75 mcg PO 0600 FRANCINE Midodrine (Midodrine) 10 mg PO DAILY FRANCINE Ondansetron HCl (Zofran) 4 mg IV Q8HR PRN PRN Reason: Nausea And Vomiting Temazepam (Resoril) 15 mg PO BEDTIME FRANCINE Discontinued Medications Sodium Chloride (Normal Saline 0.9%) 1,000 mls @ 1,000 mls/hr IV BOLUS ONE Stop: 08/04/18 14:51 Last Infusion: 08/04/18 14:27 Dose: 1,000 mls/hr Admin: 08/04/18 14:00 Dose: 1,000 mls/hr Ondansetron HCl (Zofran) 4 mg IV NOW ONE Stop: 08/04/18 13:03 Last Admin: 04/07/19 13:22 Dose: 4 mg Pantoprazole Sodium (Protonix) 80 mg IV NOW ONE Stop: 08/04/18 13:03 Last Admin: 08/04/18 13:22 Dose: 80 mg Consultations Consultation #1: initial call to Dr. Sen (gen surg) whom is happy to provide surgical backup to medical team for scope Consultation #2: Dr. Zurita happy to accept Vital Signs - 8 hr 08/04/18 12:40 08/04/18 13:28 08/04/18 14:02 Temperature 97.9 F Pulse Rate 131 H 89 86 Respiratory Rate 16 11 L 12 Blood Pressure 126/67 Blood Pressure [Right Arm] 106/60 109/62 Pulse Oximetry 99 100 100 08/04/18 15:58 Temperature 97.5 F L Pulse Rate 85 Respiratory Rate 17 Blood Pressure 123/75 Blood Pressure [Right Arm] Pulse Oximetry 99 MDM - GI Bleed Lab Data Result diagrams: 08/04/18 15:30 08/04/18 15:30 Lab Results 08/04/18 08/04/18 08/04/18 Range/Units 13:05 13:05 13:05 WBC 5.2 (4.5-11.0) X10^3/uL RBC 3.60 L (4.0-5.2) X10^6/uL Hgb 10.8 L (12.0-16.0) g/dL Hct 33.2 L (36-46) % MCV 92.4 (80-100) fL MCH 30.1 (26-34) PG MCHC 32.6 (30-36) % RDW 23.0 H (11.6-14.8) % Plt Count 273 (150-400) X10^3/uL Neut % (Auto) 84.9 H (50-75) % Lymph % (Auto) 10.4 L (25-40) % [place] % (Auto) 3.7 (3-14) % Eos % (Auto) 0.5 L (2-4) % Baso % (Auto) 0.5 (0-2) % Neut # (Auto) 4400 (2275-0247) /uL Lymph # (Auto) 500 L (1143-7568) /uL [place] # (Auto) 200 (0-900) /uL Eos # (Auto) 0 (0-450) /uL Baso # (Auto) 0 (0-100) /uL RBC Morphology See below Poikilocytosis 1+ H Anisocytosis 2+ H PT 12.3 (10.1-12.7) SECONDS INR 1.1 (0.9-1.3) APTT 31 (26.4-36.2) SECONDS Sodium 138 (137-145) mmol/L Potassium 3.2 L (3.4-5.1) mmol/L Chloride 111 H (98-107) mmol/L Carbon Dioxide 19 L (22-32) mmol/L BUN 9 (7-17) mg/dL Creatinine 0.60 (0.52-1.04) mg/dL Estimated GFR > 60.0 (>60) mL/min BUN/Creatinine Ratio 15.0 (6-22) Glucose 194 H (80-110) mg/dL Calcium 8.7 (8.4-10.2) mg/dL Magnesium (1.6-2.3) mg/dL Total Bilirubin 0.1 L (0.2-1.3) mg/dL AST 15 (14-36) IU/L ALT 15 (9-52) IU/L Alkaline Phosphatase 82 (38-126) U/L B-Natriuretic Peptide (<100) Total Protein 5.2 L (6.3-8.2) g/dL Albumin 2.5 L (3.5-5.0) g/dL Globulin 2.7 (1.7-4.1) g/dL Albumin/Globulin Ratio 0.9 L (1.0-2.8) Prolactin (3.0-18.6) ng/mL Blood Type Antibody Screen 08/04/18 08/04/18 08/04/18 Range/Units 13:05 15:30 15:30 WBC 5.3 (4.5-11.0) X10^3/uL RBC 3.15 L (4.0-5.2) X10^6/uL Hgb 9.5 L (12.0-16.0) g/dL Hct 29.0 L (36-46) % MCV 92.0 (80-100) fL MCH 30.1 (26-34) PG MCHC 32.7 (30-36) % RDW 22.9 H (11.6-14.8) % Plt Count 247 (150-400) X10^3/uL Neut % (Auto) 75.5 H (50-75) % Lymph % (Auto) 16.5 L (25-40) % [place] % (Auto) 6.7 (3-14) % Eos % (Auto) 0.7 L (2-4) % Baso % (Auto) 0.6 (0-2) % Neut # (Auto) 4000 (6244-6020) /uL Lymph # (Auto) 900 L (7766-2092) /uL [place] # (Auto) 400 (0-900) /uL Eos # (Auto) 0 (0-450) /uL Baso # (Auto) 0 (0-100) /uL RBC Morphology See below Poikilocytosis 1+ H Anisocytosis 2+ H PT (10.1-12.7) SECONDS INR (0.9-1.3) APTT (26.4-36.2) SECONDS Sodium 141 (137-145) mmol/L Potassium 3.8 (3.4-5.1) mmol/L Chloride 115 H (98-107) mmol/L Carbon Dioxide 22 (22-32) mmol/L BUN 8 (7-17) mg/dL Creatinine 0.50 L (0.52-1.04) mg/dL Estimated GFR > 60.0 (>60) mL/min BUN/Creatinine Ratio 16.0 (6-22) Glucose 96 (80-110) mg/dL Calcium 8.3 L (8.4-10.2) mg/dL Magnesium 1.8 (1.6-2.3) mg/dL Total Bilirubin (0.2-1.3) mg/dL AST (14-36) IU/L ALT (9-52) IU/L Alkaline Phosphatase (38-126) U/L B-Natriuretic Peptide (<100) Total Protein (6.3-8.2) g/dL Albumin (3.5-5.0) g/dL Globulin (1.7-4.1) g/dL Albumin/Globulin Ratio (1.0-2.8) Prolactin 44.2 H (3.0-18.6) ng/mL Blood Type A Negative Antibody Screen Negative 08/04/18 Range/Units 15:30 WBC (4.5-11.0) X10^3/uL RBC (4.0-5.2) X10^6/uL Hgb (12.0-16.0) g/dL Hct (36-46) % MCV (80-100) fL MCH (26-34) PG MCHC (30-36) % RDW (11.6-14.8) % Plt Count (150-400) X10^3/uL Neut % (Auto) (50-75) % Lymph % (Auto) (25-40) % [place] % (Auto) (3-14) % Eos % (Auto) (2-4) % Baso % (Auto) (0-2) % Neut # (Auto) (0436-3064) /uL Lymph # (Auto) (8541-5555) /uL [place] # (Auto) (0-900) /uL Eos # (Auto) (0-450) /uL Baso # (Auto) (0-100) /uL RBC Morphology Poikilocytosis Anisocytosis PT (10.1-12.7) SECONDS INR (0.9-1.3) APTT (26.4-36.2) SECONDS Sodium (137-145) mmol/L Potassium (3.4-5.1) mmol/L Chloride (98-107) mmol/L Carbon Dioxide (22-32) mmol/L BUN (7-17) mg/dL Creatinine (0.52-1.04) mg/dL Estimated GFR (>60) mL/min BUN/Creatinine Ratio (6-22) Glucose (80-110) mg/dL Calcium (8.4-10.2) mg/dL Magnesium (1.6-2.3) mg/dL Total Bilirubin (0.2-1.3) mg/dL AST (14-36) IU/L ALT (9-52) IU/L Alkaline Phosphatase (38-126) U/L B-Natriuretic Peptide < 100 (<100) Total Protein (6.3-8.2) g/dL Albumin (3.5-5.0) g/dL Globulin (1.7-4.1) g/dL Albumin/Globulin Ratio (1.0-2.8) Prolactin (3.0-18.6) ng/mL Blood Type Antibody Screen Discharge Plan Departure Patient Disposition: Admitted As Inpatient Clinical Impression: Gastrointestinal bleeding Qualifiers: GI bleed type/associated pathology: melena Qualified Code(s): K92.1 - Melena Interventions: ED Discharge Assessment Last Done: 08/04/18 14:28 Admit Date/Time: 08/04/18 14:10 Admit Provider: Corby Zurita
--- NOTE | 2018-08-04 13:08 | ED_ITS ---
HPI - GI Bleed General Chief complaint: GI Bleed Stated complaint: blood in stool,dizzy Time Seen by Provider: 08/04/18 12:41 Source: patient and family Mode of arrival: wheelchair Limitations: no limitations History of Present Illness HPI Narrative: 73-year-old female nonsmoker with history of stomach surgery at [facility] 5 years ago presents with dark and tarry stool since as well as dizziness, weakness and lightheadedness. Patient denies any bright red stool. She has had no vomiting and denies any history bright red vomit nor known varices. She does have a history of ulcers. She does not take any blood thinners and does not drink any alcohol. She does have some mild epigastric pain MD complaint: melena Onset (ago): day(s) Pain Consistency: intermittent Severity: moderate Relieving factors: none Exacerbating factors: none Associated symptoms: abdominal pain, nausea, loss of appetite, shortness of breath, syncope (near syncope) and weakness Related Data Home Medications Medication Instructions Recorded Confirmed Diabetic Shoes 1 pkg MISCELLANEOUS DIRECTED 01/14/18 07/29/18 Walker: Four Wheel 1 u MISCELLANEOUS DIRECTED 01/14/18 07/29/18 bupropion HCl 150 mg PO BID 03/05/18 08/04/18 carbidopa ER 50 mg-levodopa 200 mg 1 tab PO QID PRN tab 06/04/18 08/04/18 tablet,extended release ferrous sulfate [FeroSul] 1 tab PO BID 08/04/18 08/04/18 hydrocodone-acetaminophen 1 tab PO QID PRN 08/04/18 08/04/18 midodrine 10 mg PO DAILY 08/04/18 08/04/18 temazepam 1 tab PO BEDTIME 08/04/18 08/04/18 Previous Rx's Medication Instructions Recorded glimepiride 2 mg tablet 8 mg PO DAILY #360 tab 06/04/18 citalopram 20 mg tablet 40 mg PO DAILY #60 tab 07/04/18 levothyroxine 175 mcg tablet 175 mcg PO DAILY #90 tab 07/22/18 Allergies Allergy/AdvReac Type Severity Reaction Status Date / Time amoxicillin [From AUGMENTIN] Allergy Mild RASH Verified 08/04/18 12:58 clavulanic acid Allergy Mild RASH Verified 08/04/18 12:58 [From AUGMENTIN] metformin [METFORMIN] AdvReac Severe SWELLING Verified 08/04/18 12:58 Review of Systems Constitutional Denies chills, Denies fever(s), Denies lethargy and Reports weakness Eyes Denies change in vision, Denies eye discharge, Denies irritation and Denies loss of vision ENT Ears, Nose, Mouth, and Throat: Denies change in voice, Denies neck pain and Denies sore throat Cardiovascular Denies chest pain, Denies irregular heart rhythm, Denies lightheadedness, Denies palpitations, Denies dyspnea, Denies dyspnea on exertion and Denies orthopnea Respiratory Denies cough, Denies dyspnea, Denies dyspnea on exertion and Denies wheezing Gastrointestinal Gastrointestinal: Denies abdominal pain, Reports melena, Denies change in bowel habits, Denies diarrhea, Denies nausea and Denies vomiting Genitourinary Denies hematuria, Denies flank pain, Denies urinary incontinence and Denies urin mali urgency Musculoskeletal Denies neck pain Integumentary/Breasts Denies pruritus, Denies erythema, Denies rash and Denies wounds Neurologic Denies confusion, Denies loss of vision and Reports weakness Psychiatric Denies anxiety, Denies confusion, Denies depression, Denies homicidal ideation and Denies suicidal ideation Endocrine Denies palpitations Hematologic/Lymphatic Denies easy bruising Allergic/Immunologic Denies wheezing [facility] Medical History Chronic back pain (Chronic ~2009) Neuropathy (Chronic ~2008) Headache (Chronic ~1989) Migraines (Chronic ~1989) Restless leg syndrome (Chronic ~1989) Lupus (Chronic ~1999) Arthritis (Chronic) Anemia (Chronic ~2004) Foot pain (Chronic ~2010) Fractures (Chronic ~2011) Gastric ulcer (Chronic ~1991) History of irregular menstrual cycles (Chronic ~1989) Hyperthyroidism (Chronic ~2004) Ovarian cyst (Chronic ~1999) Painful menstrual periods (Chronic ~1978) Chicken pox (Resolved) Measles (Resolved) Mumps (Resolved) Surgical History Gastric bypass status for obesity (Acute) H/O hernia repair (Acute) S/P foot surgery, right (Acute) Hx of resection of stomach (Resolved) Family History Grandfather No problems noted. Grandmother No problems noted. Mother No problems noted. Son Diabetes mellitus Social History marital status: household members: spouse Smoking Status: Never smoker alcohol intake: never substance use type: does not use Family History Grandfather No problems noted. Grandmother No problems noted. Mother No problems noted. Son Diabetes mellitus Social History marital status: household members: spouse Smoking Status: Never smoker alcohol intake: never substance use type: does not use Exam Narrative Exam Narrative: GENERAL: 73-year-old female appears weak and feeling under the weather. HEAD: Atraumatic. Normocephalic. No temporal or scalp tenderness. EYES: Pale conjunctiva Pupils equal round and reactive. Extraocular motions intact. No scleral icterus. No injection or drainage. ENT: Nose without bleeding, purulent drainage or septal hematoma. Throat without erythema, tonsillar hypertrophy or exudate. Uvula midline. Airway patent. NECK: Trachea midline. No JVD or lymphadenopathy. Supple, nontender, no meningeal signs. CARDIOVASCULAR: Regular rate and rhythm without murmurs, gallops, or rubs. RESPIRATORY: Clear to auscultation. Breath sounds equal bilaterally. No wheezes, rales, or rhonchi. GASTROINTESTINAL: Abdomen soft, non-tender, nondistended. No hepato- splenomegaly, or palpable masses. No guarding. RECTAL: no obvious blood, no stool for hemoccult. Performed with female nursing military pay clerk at the bedside EXTREMITIES: No clubbing, cyanosis, or edema. No joint tenderness, effusion, or edema noted. BACK: Nontender without deformity or crepitance. No flank tenderness. NEURO: AOx3. SKIN: No rash or erythema. Initial Vital Signs Initial Vital Signs: Vital Signs Temperature 97.9 F 08/04/18 12:40 Pulse Rate 131 H 08/04/18 12:40 Respiratory Rate 16 08/04/18 12:40 Blood Pressure 126/67 08/04/18 12:40 Pulse Oximetry 99 08/04/18 12:40 Course Orders Ordered: ED Orders 08/04/18 13:05 Complete Blood Count AUTO DIFF Stat Comprehensive Metabolic Panel Stat Partial Thromboplastin Time Stat Prothrombin Time INR Stat Type and Screen Stat 08/04/18 15:07 Urinalysis Sreen (Dip Only) Stat Urine Drug Screen, Rapid Stat Education, smoking cessation ONGOING 08/04/18 15:11 Consult to Physician Routine 08/04/18 15:30 B Type Natriuretic Peptide Routine Basic Metabolic Panel Stat Complete Blood Count AUTO DIFF Stat Magnesium Stat Prolactin Stat 08/04/18 17:00 Complete Blood Count AUTO DIFF Stat 08/05/18 05:15 Basic Metabolic Panel DAILY Hydrocodone Bitart/Acetaminophen ([place] 5/325) 1 tab PO QID PRN PRN Reason: Back Pain Last Admin: 08/04/18 16:48 Dose: 1 tab Bupropion HCl (Wellbutrin Sr) 150 mg PO BID FRANCINE Carbidopa/Levodopa (Sinemet Er 50-200 Tab) 1 each PO QID PRN PRN Reason: restless legs Last Admin: 08/04/18 16:51 Dose: 1 each Citalopram Hydrobromide (Celexa) 40 mg PO DAILY FRANCINE Ferrous Sulfate (Ferrous Sulfate) 325 mg PO BID FRANCINE Glimepiride (Amaryl) 8 mg PO DAILY FRANCINE Sodium Chloride (Normal Saline 0.9%) 1,000 mls @ 100 mls/hr IV CONT FRANCINE Last Admin: 08/04/18 16:23 Dose: 100 mls/hr Levothyroxine Sodium (Synthroid) 100 mcg PO 0600 FRANCINE Levothyroxine Sodium (Synthroid) 75 mcg PO 0600 FRANCINE Midodrine (Midodrine) 10 mg PO DAILY FRANCINE Ondansetron HCl (Zofran) 4 mg IV Q8HR PRN PRN Reason: Nausea And Vomiting Temazepam (Resoril) 15 mg PO BEDTIME FRANCINE Discontinued Medications Sodium Chloride (Normal Saline 0.9%) 1,000 mls @ 1,000 mls/hr IV BOLUS ONE Stop: 08/04/18 14:51 Last Infusion: 08/04/18 14:27 Dose: 1,000 mls/hr Admin: 08/04/18 14:00 Dose: 1,000 mls/hr Ondansetron HCl (Zofran) 4 mg IV NOW ONE Stop: 08/04/18 13:03 Last Admin: 08/04/18 13:22 Dose: 4 mg Pantoprazole Sodium (Protonix) 80 mg IV NOW ONE Stop: 08/04/18 13:03 Last Admin: 08/04/18 13:22 Dose: 80 mg Consultations Consultation #1: initial call to Dr. Sen (gen surg) whom is happy to provide surgical backup to medical team for scope Consultation #2: Dr. Zurita happy to accept Vital Signs - 8 hr 08/04/18 12:40 08/04/18 13:28 08/04/18 14:02 Temperature 97.9 F Pulse Rate 131 H 89 86 Respiratory Rate 16 11 L 12 Blood Pressure 126/67 Blood Pressure [Right Arm] 106/60 109/62 Pulse Oximetry 99 100 100 08/04/18 15:58 Temperature 97.5 F L Pulse Rate 85 Respiratory Rate 17 Blood Pressure 123/75 Blood Pressure [Right Arm] Pulse Oximetry 99 MDM - GI Bleed Lab Data Result diagrams: 08/04/18 15:30 08/04/18 15:30 Lab Results 08/04/18 08/04/18 08/04/18 Range/Units 13:05 13:05 13:05 WBC 5.2 (4.5-11.0) X10^3/uL RBC 3.60 L (4.0-5.2) X10^6/uL Hgb 10.8 L (12.0-16.0) g/dL Hct 33.2 L (36-46) % MCV 92.4 (80-100) fL MCH 30.1 (26-34) PG MCHC 32.6 (30-36) % RDW 23.0 H (11.6-14.8) % Plt Count 273 (150-400) X10^3/uL Neut % (Auto) 84.9 H (50-75) % Lymph % (Auto) 10.4 L (25-40) % Blount % (Auto) 3.7 (3-14) % Eos % (Auto) 0.5 L (2-4) % Baso % (Auto) 0.5 (0-2) % Neut # (Auto) 4400 (5611-1211) /uL Lymph # (Auto) 500 L (8817-2822) /uL Blount # (Auto) 200 (0-900) /uL Eos # (Auto) 0 (0-450) /uL Baso # (Auto) 0 (0-100) /uL RBC Morphology See below Poikilocytosis 1+ H Anisocytosis 2+ H PT 12.3 (10.1-12.7) SECONDS INR 1.1 (0.9-1.3) APTT 31 (26.4-36.2) SECONDS Sodium 138 (137-145) mmol/L Potassium 3.2 L (3.4-5.1) mmol/L Chloride 111 H (98-107) mmol/L Carbon Dioxide 19 L (22-32) mmol/L BUN 9 (7-17) mg/dL Creatinine 0.60 (0.52-1.04) mg/dL Estimated GFR > 60.0 (>60) mL/min BUN/Creatinine Ratio 15.0 (6-22) Glucose 194 H (80-110) mg/dL Calcium 8.7 (8.4-10.2) mg/dL Magnesium (1.6-2.3) mg/dL Total Bilirubin 0.1 L (0.2-1.3) mg/dL AST 15 (14-36) IU/L ALT 15 (9-52) IU/L Alkaline Phosphatase 82 (38-126) U/L B-Natriuretic Peptide (<100) Total Protein 5.2 L (6.3-8.2) g/dL Albumin 2.5 L (3.5-5.0) g/dL Globulin 2.7 (1.7-4.1) g/dL Albumin/Globulin Ratio 0.9 L (1.0-2.8) Prolactin (3.0-18.6) ng/mL Blood Type Antibody Screen 08/04/18 08/04/18 08/04/18 Range/Units 13:05 15:30 15:30 WBC 5.3 (4.5-11.0) X10^3/uL RBC 3.15 L (4.0-5.2) X10^6/uL Hgb 9.5 L (12.0-16.0) g/dL Hct 29.0 L (36-46) % MCV 92.0 (80-100) fL MCH 30.1 (26-34) PG MCHC 32.7 (30-36) % RDW 22.9 H (11.6-14.8) % Plt Count 247 (150-400) X10^3/uL Neut % (Auto) 75.5 H (50-75) % Lymph % (Auto) 16.5 L (25-40) % Blount % (Auto) 6.7 (3-14) % Eos % (Auto) 0.7 L (2-4) % Baso % (Auto) 0.6 (0-2) % Neut # (Auto) 4000 (7973-1346) /uL Lymph # (Auto) 900 L (9761-0553) /uL Blount # (Auto) 400 (0-900) /uL Eos # (Auto) 0 (0-450) /uL Baso # (Auto) 0 (0-100) /uL RBC Morphology See below Poikilocytosis 1+ H Anisocytosis 2+ H PT (10.1-12.7) SECONDS INR (0.9-1.3) APTT (26.4-36.2) SECONDS Sodium 141 (137-145) mmol/L Potassium 3.8 (3.4-5.1) mmol/L Chloride 115 H (98-107) mmol/L Carbon Dioxide 22 (22-32) mmol/L BUN 8 (7-17) mg/dL Creatinine 0.50 L (0.52-1.04) mg/dL Estimated GFR > 60.0 (>60) mL/min BUN/Creatinine Ratio 16.0 (6-22) Glucose 96 (80-110) mg/dL Calcium 8.3 L (8.4-10.2) mg/dL Magnesium 1.8 (1.6-2.3) mg/dL Total Bilirubin (0.2-1.3) mg/dL AST (14-36) IU/L ALT (9-52) IU/L Alkaline Phosphatase (38-126) U/L B-Natriuretic Peptide (<100) Total Protein (6.3-8.2) g/dL Albumin (3.5-5.0) g/dL Globulin (1.7-4.1) g/dL Albumin/Globulin Ratio (1.0-2.8) Prolactin 44.2 H (3.0-18.6) ng/mL Blood Type A Negative Antibody Screen Negative 08/04/18 Range/Units 15:30 WBC (4.5-11.0) X10^3/uL RBC (4.0-5.2) X10^6/uL Hgb (12.0-16.0) g/dL Hct (36-46) % MCV (80-100) fL MCH (26-34) PG MCHC (30-36) % RDW (11.6-14.8) % Plt Count (150-400) X10^3/uL Neut % (Auto) (50-75) % Lymph % (Auto) (25-40) % Blount % (Auto) (3-14) % Eos % (Auto) (2-4) % Baso % (Auto) (0-2) % Neut # (Auto) (1406-5004) /uL Lymph # (Auto) (9343-3723) /uL Blount # (Auto) (0-900) /uL Eos # (Auto) (0-450) /uL Baso # (Auto) (0-100) /uL RBC Morphology Poikilocytosis Anisocytosis PT (10.1-12.7) SECONDS INR (0.9-1.3) APTT (26.4-36.2) SECONDS Sodium (137-145) mmol/L Potassium (3.4-5.1) mmol/L Chloride (98-107) mmol/L Carbon Dioxide (22-32) mmol/L BUN (7-17) mg/dL Creatinine (0.52-1.04) mg/dL Estimated GFR (>60) mL/min BUN/Creatinine Ratio (6-22) Glucose (80-110) mg/dL Calcium (8.4-10.2) mg/dL Magnesium (1.6-2.3) mg/dL Total Bilirubin (0.2-1.3) mg/dL AST (14-36) IU/L ALT (9-52) IU/L Alkaline Phosphatase (38-126) U/L B-Natriuretic Peptide < 100 (<100) Total Protein (6.3-8.2) g/dL Albumin (3.5-5.0) g/dL Globulin (1.7-4.1) g/dL Albumin/Globulin Ratio (1.0-2.8) Prolactin (3.0-18.6) ng/mL Blood Type Antibody Screen Discharge Plan Departure Patient Disposition: Admitted As Inpatient Clinical Impression: Gastrointestinal bleeding Qualifiers: GI bleed type/associated pathology: melena Qualified Code(s): K92.1 - Melena Interventions: ED Discharge Assessment Last Done: 08/04/18 14:28 Admit Date/Time: 08/04/18 14:10 Admit Provider: Corby Zurita
[2018-08-04 13:20] LABS: INR 1.1 (0.9-1.3); Prothrombin Time 12.3 SECONDS (10.1-12.7)
[2018-08-04] MEDS: PANTOPRAZOLE 40 MG VIAL 80 MG IV (13:22)
[2018-08-04] MEDS: ONDANSETRON 4 MG/2 ML INJ IV (13:22)
[2018-08-04 13:23] LABS: PTT Partial Thromboplastin Tim 31 SECONDS (26.4-36.2)
[2018-08-04 13:24] LABS: Add Manual Diff / Slide Review NO; Alanine Aminotransferase 15 IU/L (9-52); Albumin 2.5 g/dL (3.5-5.0); Albumin Globulin Ratio 0.9 (1.0-2.8); Alkaline Phosphatase 82 U/L (38-126); Aspartate Aminotransferase 15 IU/L (14-36); Basophils Absolute Auto 0 /uL (0-100); Basophils Percent Auto 0.5 % (0-2); Bilirubin Total 0.1 mg/dL (0.2-1.3); Blood Urea Nitrogen 9 mg/dL (7-17); Calcium 8.7 mg/dL (8.4-10.2); Carbon Dioxide 19 mmol/L (22-32); Chloride 111 mmol/L (98-107); Eosinophils Absolute Auto 0 /uL (0-450); Eosinophils Percent Auto 0.5 % (2-4); Estimated Glomerular Filt Rate > 60.0 mL/min (>60); Globulin 2.7 g/dL (1.7-4.1); Glucose 194 mg/dL (80-110); HEMOLYSIS < 15 (0-50); Hematocrit 33.2 % (36-46); Hemoglobin 10.8 g/dL (12.0-16.0); Lymphocytes Absolute Auto 500 /uL (1100-4500); Lymphocytes Percent Auto 10.4 % (25-40); Mean Corpuscular HGB Conc 32.6 % (30-36); Mean Corpuscular Hemoglobin 30.1 PG (26-34); Mean Corpuscular Volume 92.4 fL (80-100); Monocytes Absolute Auto 200 /uL (0-900); Monocytes Percent Auto 3.7 % (3-14); Neutrophils Absolute Auto 4400 /uL (1500-7000); Neutrophils Percent Auto 84.9 % (50-75); Platelet Count 273 X10^3/uL (150-400); Potassium 3.2 mmol/L (3.4-5.1); Sodium 138 mmol/L (137-145); Total Protein 5.2 g/dL (6.3-8.2); White Blood Cell Count 5.2 X10^3/uL (4.5-11.0)
--- NOTE | 2018-08-04 13:52 | PC.NURSE ---
Standby assist with provider doing a rectal exam for occult blood. Dr. Pennington didn't get anything so nothing was tested. pt tolerated it well.
[2018-08-04 13:54] LABS: Anisocytosis 2+; Poikilocytosis 1+
[2018-08-04] MEDS: SODIUM CHLORIDE 0.9% 1,000 ML 1000 ML IV (14:00)
--- NOTE | 2018-08-04 14:39 | PC.NURSE ---
1435 Pt arrived via stretcher from ED. Pt A&Ox3, pleasant. Pt denies pain, is pale, has IVF infusing,bolus. Spouse at bedside. Pt inst to use call light for assistance, not to be oob by self r/t the orthostatic episode. Bed alarm on. IV to L wrist is c&d&I.
[2018-08-04 15:40] LABS: Add Manual Diff / Slide Review NO; Basophils Absolute Auto 0 /uL (0-100); Basophils Percent Auto 0.6 % (0-2); Eosinophils Absolute Auto 0 /uL (0-450); Eosinophils Percent Auto 0.7 % (2-4); Hemoglobin 9.5 g/dL (12.0-16.0); Lymphocytes Absolute Auto 900 /uL (1100-4500); Lymphocytes Percent Auto 16.5 % (25-40); Mean Corpuscular HGB Conc 32.7 % (30-36); Mean Corpuscular Hemoglobin 30.1 PG (26-34); Monocytes Absolute Auto 400 /uL (0-900); Monocytes Percent Auto 6.7 % (3-14); Neutrophils Absolute Auto 4000 /uL (1500-7000); Neutrophils Percent Auto 75.5 % (50-75); Platelet Count 247 X10^3/uL (150-400); Red Blood Cell Count 3.15 X10^6/uL (4.0-5.2); Red Cell Distribution Width 22.9 % (11.6-14.8); White Blood Cell Count 5.3 X10^3/uL (4.5-11.0)
[2018-08-04 15:45] LABS: Blood Urea Nitrogen 8 mg/dL (7-17); Calcium 8.3 mg/dL (8.4-10.2); Carbon Dioxide 22 mmol/L (22-32); Chloride 115 mmol/L (98-107); Estimated Glomerular Filt Rate > 60.0 mL/min (>60); Glucose 96 mg/dL (80-110); HEMOLYSIS < 15 (0-50); Magnesium 1.8 mg/dL (1.6-2.3); Potassium 3.8 mmol/L (3.4-5.1); Sodium 141 mmol/L (137-145)
[2018-08-04 15:58] LABS: B Type Natriuretic Peptide < 100 (<100)
[2018-08-04 15:59] LABS: Anisocytosis 2+; Poikilocytosis 1+
[2018-08-04 16:02] LABS: Prolactin 44.2 ng/mL (3.0-18.6)
[2018-08-04] MEDS: SODIUM CHLORIDE 0.9% 1,000 ML 100 ML IV (16:23)
[2018-08-04] MEDS: HYDROCODONE/ACET 5/325 TABLET 1 TAB PO ×2 (16:48→21:39)
[2018-08-04] MEDS: CARBIDOPA-LEVODOPA ER 50/200 TABLET 1 EACH PO ×2 (16:51→21:35)
[2018-08-04 17:35] LABS: Add Manual Diff / Slide Review NO; Basophils Absolute Auto 0 /uL (0-100); Basophils Percent Auto 0.5 % (0-2); Eosinophils Absolute Auto 100 /uL (0-450); Eosinophils Percent Auto 1.3 % (2-4); Hematocrit 29.6 % (36-46); Hemoglobin 9.7 g/dL (12.0-16.0); Lymphocytes Absolute Auto 1200 /uL (1100-4500); Lymphocytes Percent Auto 22.9 % (25-40); Mean Corpuscular HGB Conc 32.8 % (30-36); Mean Corpuscular Hemoglobin 30.1 PG (26-34); Mean Corpuscular Volume 91.6 fL (80-100); Monocytes Absolute Auto 400 /uL (0-900); Monocytes Percent Auto 7.2 % (3-14); Neutrophils Absolute Auto 3600 /uL (1500-7000); Neutrophils Percent Auto 68.1 % (50-75); Platelet Count 264 X10^3/uL (150-400); Red Blood Cell Count 3.23 X10^6/uL (4.0-5.2); White Blood Cell Count 5.3 X10^3/uL (4.5-11.0)
--- NOTE | 2018-08-04 17:42 | PM.HP.1 ---
History of Present Illness Date Patient Seen: 08/04/18 Time Patient Seen: 17:42 Chief complaint: blood in stool,dizzy Narrative: GI bleed Patient presented to the emergency room this afternoon. She relates that since she has been feeling very dizzy when she gets up and walks lightheadedness when she gets dizzy she sits still and the dizziness goes away if she will get up again she would feel lightheaded and dizzy. Soon mild spastic but severe on to the point where she requires help from her to ambulate. Additionally stools on became more frequent looser and turned a dark reddish ?rust colored? looking stool. This could persisted until today her last stool was this morning. She denies any bright red blood per rectum nor she admits that the stools were actually melanotic although she must admits she has actually looked at them other than what was in the stool water. She has chronic abdominal pain that has unchanged. Some nausea. Does not take nonsteroidal anti-inflammatories. She has a significant history recently of of multiple GI complaints nausea vomiting decreased appetite has lost her mouth because of all the above she was seen in consultation by Dr. Gerald Hernandez surgeon here who did an evaluation with no obvious etiology. 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 They were aware of prior history of anemia and found no evidence of anemia. She does have a history of iron deficiency this is chronic and is felt to be due to malabsorption. Patient has had some sort of gastrointestinal bypass surgery is unclear with the purpose unclear when was done several years ago. Unclear whether not it was bariatric surgery verses ulcer surgery op report not available. There was some question about whether not patient has gastroparesis but patient tolerated this CT contrast without difficulty so that became less likely. A HIDA scan has been scheduled for [facility] and reportedly did not occur. 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 Patient History Medical History Chronic back pain (Chronic ~2009) Neuropathy (Chronic ~2008) Headache (Chronic ~1989) Migraines (Chronic ~1989) Restless leg syndrome (Chronic ~1989) Lupus (Chronic ~1999) Arthritis (Chronic) Anemia (Chronic ~2004) Foot pain (Chronic ~2010) Fractures (Chronic ~2011) Gastric ulcer (Chronic ~1991) History of irregular menstrual cycles (Chronic ~1989) Hyperthyroidism (Chronic ~2004) Ovarian cyst (Chronic ~1999) Painful menstrual periods (Chronic ~1978) Chicken pox (Resolved) Measles (Resolved) Mumps (Resolved) Surgical History Gastric bypass status for obesity (Acute) H/O hernia repair (Acute) S/P foot surgery, right (Acute) Hx of resection of stomach (Resolved) Family History Grandfather No problems noted. Grandmother No problems noted. Mother No problems noted. Son Diabetes mellitus Social History marital status: household members: spouse Smoking Status: Never smoker alcohol intake: never substance use type: does not use Family & Social History Family History Grandfather No problems noted. Grandmother No problems noted. Mother No problems noted. Son Diabetes mellitus Social History: household members spouse Safety & Behavioral: Feels Safe in Current Yes Environment Been Physically Hurt or No Threatened By a Person Tobacco & Substance use: Smoking Status Never smoker alcohol intake never alcohol intake frequency other Substance Use Type does not use Meds Home Medications Medication Instructions Recorded Confirmed Type Diabetic Shoes 1 pkg MISCELLANEOUS DIRECTED 01/14/18 07/29/18 History Walker: Four Wheel 1 u MISCELLANEOUS DIRECTED 01/14/18 07/29/18 History bupropion HCl 150 mg PO BID 03/05/18 08/04/18 History carbidopa ER 50 mg-levodopa 200 mg 1 tab PO QID PRN tab 06/04/18 08/04/18 History tablet,extended release glimepiride 2 mg tablet 8 mg PO DAILY #360 tab 06/04/18 08/04/18 Rx citalopram 20 mg tablet 40 mg PO DAILY #60 tab 07/04/18 08/04/18 Rx levothyroxine 175 mcg tablet 175 mcg PO DAILY #90 tab 07/22/18 08/04/18 Rx ferrous sulfate [FeroSul] 1 tab PO BID 08/04/18 08/04/18 History hydrocodone-acetaminophen 1 tab PO QID PRN 08/04/18 08/04/18 History midodrine 10 mg PO DAILY 08/04/18 08/04/18 History temazepam 1 tab PO BEDTIME 08/04/18 08/04/18 History Allergies Allergy/AdvReac Type Severity Reaction Status Date / Time amoxicillin [From AUGMENTIN] Allergy Mild RASH Verified 08/04/18 12:58 clavulanic acid Allergy Mild RASH Verified 08/04/18 12:58 [From AUGMENTIN] metformin [METFORMIN] AdvReac Severe SWELLING Verified 08/04/18 12:58 Review of Systems Review of Systems All systems reviewed & are unremarkable except as noted in HPI and below Exam Vital Signs (past 8 hours): - 08/04/18 12:40 08/04/18 13:28 08/04/18 14:02 Temperature 97.9 F Pulse Rate 131 H 89 86 Respiratory Rate 16 11 L 12 Blood Pressure 126/67 Blood Pressure [Right Arm] 106/60 109/62 Pulse Oximetry 99 100 100 08/04/18 15:58 Temperature 97.5 F L Pulse Rate 85 Respiratory Rate 17 Blood Pressure 123/75 Blood Pressure [Right Arm] Pulse Oximetry 99 Oxygen Delivery Method Room Air Oxygen Flow Rate 0 Narrative Exam Narrative: Gen.: Patient is resting quietly in hospital bed appears in no distress her usual talkative self. Skin: Warm well perfused. No prominent lesions. Nonicteric. HEENT: PERRL., normal EOM, external ears canals TMs normal, nasal mucosa normal and midline septum, oropharynx without lesions. Neck: Trachea midline. Thyroid nontender and not enlarged. Carotids without bruits. No lymphadenopathy Back: No obvious deformity or tenderness. Chest: Clear to P&A. Symmetric. CV: RRR no murmur or gallop. No JVD. Abdomen: No masses bruits tenderness or visceromegaly. Neuro: Cranial nerves II through XII grossly intact. Sensory and motor exams intact. Gait normal. Mental status: Intact for screening Extremities: No cyanosis clubbing or edema Musculoskeletal: No gross deformities Lymphatics: Negative for lymphadenopathy, supraclavicular axillary or inguinal Abdominal exam is totally benign minimal discomfort in the right upper quadrant however no masses no rebound decreased bowel sounds rectal exam not performed Objective Labs Result Diagrams: 08/04/18 17:25 08/04/18 15:30 Labs: Laboratory Results - last 24 hr 08/04/18 08/04/18 08/04/18 13:05 13:05 13:05 WBC 5.2 RBC 3.60 L Hgb 10.8 L Hct 33.2 L MCV 92.4 MCH 30.1 MCHC 32.6 RDW 23.0 H Plt Count 273 Neut % (Auto) 84.9 H Lymph % (Auto) 10.4 L Fisher % (Auto) 3.7 Eos % (Auto) 0.5 L Baso % (Auto) 0.5 Neut # (Auto) 4400 Lymph # (Auto) 500 L Fisher # (Auto) 200 Eos # (Auto) 0 Baso # (Auto) 0 RBC Morphology See below Poikilocytosis 1+ H Anisocytosis 2+ H PT 12.3 INR 1.1 APTT 31 Sodium 138 Potassium 3.2 L Chloride 111 H Carbon Dioxide 19 L BUN 9 Creatinine 0.60 Estimated GFR > 60.0 BUN/Creatinine Ratio 15.0 Glucose 194 H Calcium 8.7 Magnesium Total Bilirubin 0.1 L AST 15 ALT 15 Alkaline Phosphatase 82 B-Natriuretic Peptide Total Protein 5.2 L Albumin 2.5 L Globulin 2.7 Albumin/Globulin Ratio 0.9 L Prolactin Blood Type Antibody Screen 08/04/18 08/04/18 08/04/18 13:05 15:30 15:30 WBC 5.3 RBC 3.15 L Hgb 9.5 L Hct 29.0 L MCV 92.0 MCH 30.1 MCHC 32.7 RDW 22.9 H Plt Count 247 Neut % (Auto) 75.5 H Lymph % (Auto) 16.5 L Fisher % (Auto) 6.7 Eos % (Auto) 0.7 L Baso % (Auto) 0.6 Neut # (Auto) 4000 Lymph # (Auto) 900 L Fisher # (Auto) 400 Eos # (Auto) 0 Baso # (Auto) 0 RBC Morphology See below Poikilocytosis 1+ H Anisocytosis 2+ H PT INR APTT Sodium 141 Potassium 3.8 Chloride 115 H Carbon Dioxide 22 BUN 8 Creatinine 0.50 L Estimated GFR > 60.0 BUN/Creatinine Ratio 16.0 Glucose 96 Calcium 8.3 L Magnesium 1.8 Total Bilirubin AST ALT Alkaline Phosphatase B-Natriuretic Peptide Total Protein Albumin Globulin Albumin/Globulin Ratio Prolactin 44.2 H Blood Type A Negative Antibody Screen Negative 08/04/18 08/04/18 15:30 17:25 WBC 5.3 RBC 3.23 L Hgb 9.7 L Hct 29.6 L MCV 91.6 MCH 30.1 MCHC 32.8 RDW 23.0 H Plt Count 264 Neut % (Auto) 68.1 Lymph % (Auto) 22.9 L Fisher % (Auto) 7.2 Eos % (Auto) 1.3 L Baso % (Auto) 0.5 Neut # (Auto) 3600 Lymph # (Auto) 1200 Fisher # (Auto) 400 Eos # (Auto) 100 Baso # (Auto) 0 RBC Morphology Poikilocytosis Anisocytosis PT INR APTT Sodium Potassium Chloride Carbon Dioxide BUN Creatinine Estimated GFR BUN/Creatinine Ratio Glucose Calcium Magnesium Total Bilirubin AST ALT Alkaline Phosphatase B-Natriuretic Peptide < 100 Total Protein Albumin Globulin Albumin/Globulin Ratio Prolactin Blood Type Antibody Screen Lab as noted Assessment & Plan Assessment & Plan narrative: 1. Dizziness has been an intermittent problem in the past made which worse recently. May or may not be related to GI bleed appeared she is on medications that affect her blood pressure perhaps it is a contributing factor. No obvious explanation found in the ER. She was placed on tele and further evaluation forthcoming. 2. Presumed acute GI blood loss. Her T-max hemoglobin hematocrit has dropped since hydration. She has not had a stool since she has been here so son clear whether not she is actually continued to bleed or not. We will continue to monitor hemoglobin hematocrit. Consult placed for general surgeon to reassess 3. Ongoing depression is contributing factor to all this she has been bed ridden and has no interest in anything over the last several days and has been felt to be significantly depressed although she will not admit to same. 4. Diabetes mellitus has been marginally controlled but better since she is not eating A1c down to 5.6. 5. Restless legs has been helped with Sinemet will continue same may contribute to her postural hypotension however. 6. Peripheral neuropathy has significant problem with ambulation proprioception is compromise typically walks with a walker but this is stable has been seen a neurologist in the past. 7. Patient is in the process of being evaluated for memory impairment. MRI of the head has been requested Quality VTE Deep Vein Thrombosis/Pulmonary Embolism Present on Admission: No
[2018-08-04 18:02] LABS: Anisocytosis 2+
[2018-08-04] MEDS: DEXTROSE 5%-0.9% NS 1,000 ML 100 ML IV (18:15)
[2018-08-04] MEDS: PEG3350/SOD SULF,BICARB,CL/KCL 4,000 ML SOLUTION 4000 ML PO (20:00)
[2018-08-04] MEDS: buPROPion SR 150 MG TAB PO (21:34)
[2018-08-04] MEDS: FERROUS SULFATE 325 MG TABLET PO (21:35)
[2018-08-04] MEDS: TEMAZEPAM 15 MG CAPSULE PO (21:39)
[2018-08-04 23:58] LABS: Urine Amphetamines Negative (Negative); Urine Barbiturates Negative (Negative); Urine Benzodiazepines Positive (Negative); Urine Cocaine Negative (Negative); Urine MDMA Negative (Negative); Urine Methadone Negative (Negative); Urine Methamphetamines Negative (Negative); Urine Morphine/Opi cutoff 2000 Positive (Negative); Urine Oxycodone Negative (Negative); Urine Phencyclidine Negative (Negative); Urine Tetrahydrocannabinol Positive (Negative); Urine Tricyclic Antidepressant Negative (Negative)
[2018-08-05] VITALS (15 sets, daily range): BP systolic 84–131; BP diastolic 49–77; PULSE 73–104; RESP 10–18; TEMP 36.2–36.8; O2SAT 97–100; BMI 28.8
--- NOTE | 2018-08-05 | PATH_ITS ---
[facility] Accession Number: [id number] . 01 Material submitted: . RANDOM MUCOSAL BIOPSY - COLON . 01 Clinical history: . BLOOD IN STOOL, DIZZY . 02 Diagnosis: Random Colon, Biopsies: Colonic mucosa with a prominent mononuclear cell population within the lamina propria; please see comment. Negative for active or microscopic colitis. Negative for granulomata, dysplasia or malignancy. MRV/08/06/2018 . 02 Comment: Sections are of colonic mucosa with a prominent mononuclear cell population of the lamina propria. There is no significant lymphocytosis and the subepithelial collagen layer is unremarkable. There is no evidence of active inflammation or granulomata. The overall morphology is most suggestive of a resolving self-limited colitis (infectious versus drug/toxin induced). . 02 Electronically signed: . Tarun Sanchez MD, PhD, Pathologist NPI- [id number] . 01 Gross description: . RANDOM MUCOSAL BIOPSY - COLON: Received in formalin are multiple fragment(s) of feldman, soft tissue measuring 0.1 x 0.1 x 0.1 cm to 0.3 x 0.3 x 0.2 cm which is entirely submitted and submitted entirely in 1 cassette(s) /DMC /DMC . 02 Pathologist provided ICD-10: K52.9 . 02 CPT . 914936 Performed at: 01 [facility] [address] [facility], [place], [place] [id number] MD Faheem Moore MD Phone: [phone] Performed at: 02 [facility] [address] [place], [place] [id number] MD Kirstin Smith MD Phone: [phone]
[2018-08-05] MEDS: HYDROCODONE/ACET 5/325 TABLET 1 TAB PO ×2 (00:22→05:08)
--- NOTE | 2018-08-05 01:10 | PC.NURSE ---
2300- Pt admit for 5x loose stools @ home w/ meredith red color. Plan for EGD & colonscopy tomorrow; pt drinking go lightly at this time. Pt NPO drinking clear liquids. D5 NS running per orders; pt moving 1PA w/ FWW to BSC. BG low on admit, will check at 0300. On tele reading SR w/ 1st degree AVB. On RA w/ stable sats. 0010- PO Chamois given for ARAUJO & back pain. Guiac & urine sample collected; guiac negative. 0400- Pt up to bathroom thru the night. BM watery & light green at this time; drinking Donte still as ordered. Tolerating well, denies any needs.
[2018-08-05] MEDS: DEXTROSE 5%-0.9% NS 1,000 ML 100 ML IV (04:05)
[2018-08-05] MEDS: LEVOTHYROXINE 100 MCG TABLET PO (06:27)
[2018-08-05] MEDS: LEVOTHYROXINE 75 MCG TABLET PO (06:27)
[2018-08-05 06:54] LABS: Blood Urea Nitrogen 5 mg/dL (7-17); Carbon Dioxide 22 mmol/L (22-32); Chloride 113 mmol/L (98-107); Estimated Glomerular Filt Rate > 60.0 mL/min (>60); Glucose 70 mg/dL (80-110); HEMOLYSIS < 15 (0-50); Potassium 3.7 mmol/L (3.4-5.1); Sodium 139 mmol/L (137-145)
--- NOTE | 2018-08-05 08:40 | P.PN_ITS ---
Subjective Date Patient Seen: 08/05/18 Time Patient Seen: 08:37 Interval history: GI bleed. Seeing her briefly this morning. Patient is currently being transported to operating room for presumed EGD as per Dr. Sen. Patient's main complaint is her chronic back pain not respond 1 Vicodin. Typically she takes 4 tablets a day at home. This has been a chronic problem. Exam Vital Signs (past 8 hours): - 08/05/18 03:08 Temperature 97.5 F L Pulse Rate 73 Respiratory Rate 18 Blood Pressure 112/63 Pulse Oximetry 100 Oxygen Delivery Method Room Air Oxygen Flow Rate 0 Narrative Exam Narrative: No formal exam is done as patient is literally on her way to the operating room Objective Labs Result Diagrams: 08/04/18 17:25 08/05/18 06:25 Labs: Laboratory Results - last 24 hr 08/04/18 08/04/18 08/04/18 12:45 13:05 13:05 WBC 5.2 RBC 3.60 L Hgb 10.8 L Hct 33.2 L MCV 92.4 MCH 30.1 MCHC 32.6 RDW 23.0 H Plt Count 273 Neut % (Auto) 84.9 H Lymph % (Auto) 10.4 L [place] % (Auto) 3.7 Eos % (Auto) 0.5 L Baso % (Auto) 0.5 Neut # (Auto) 4400 Lymph # (Auto) 500 L [place] # (Auto) 200 Eos # (Auto) 0 Baso # (Auto) 0 RBC Morphology See below Poikilocytosis 1+ H Anisocytosis 2+ H PT 12.3 INR 1.1 APTT 31 Sodium Potassium Chloride Carbon Dioxide BUN Creatinine Estimated GFR BUN/Creatinine Ratio Glucose Calcium Magnesium Total Bilirubin AST ALT Alkaline Phosphatase B-Natriuretic Peptide Total Protein Albumin Globulin Albumin/Globulin Ratio Prolactin Urine Opiates Screen Positive H Ur Oxycodone Screen Negative Urine Methadone Screen Negative Ur Barbiturates Screen Negative U Tricyclic Antidepress Negative Ur Phencyclidine Scrn Negative Ur Amphetamines Screen Negative U Methamphetamines Scrn Negative Ur MDMA Scrn (Ecstasy) Negative U Benzodiazepines Scrn Positive H Urine Cocaine Screen Negative U Marijuana (THC) Screen Positive H Blood Type Antibody Screen 08/04/18 08/04/18 08/04/18 13:05 13:05 15:30 WBC 5.3 RBC 3.15 L Hgb 9.5 L Hct 29.0 L MCV 92.0 MCH 30.1 MCHC 32.7 RDW 22.9 H Plt Count 247 Neut % (Auto) 75.5 H Lymph % (Auto) 16.5 L [place] % (Auto) 6.7 Eos % (Auto) 0.7 L Baso % (Auto) 0.6 Neut # (Auto) 4000 Lymph # (Auto) 900 L [place] # (Auto) 400 Eos # (Auto) 0 Baso # (Auto) 0 RBC Morphology See below Poikilocytosis 1+ H Anisocytosis 2+ H PT INR APTT Sodium 138 Potassium 3.2 L Chloride 111 H Carbon Dioxide 19 L BUN 9 Creatinine 0.60 Estimated GFR > 60.0 BUN/Creatinine Ratio 15.0 Glucose 194 H Calcium 8.7 Magnesium Total Bilirubin 0.1 L AST 15 ALT 15 Alkaline Phosphatase 82 B-Natriuretic Peptide Total Protein 5.2 L Albumin 2.5 L Globulin 2.7 Albumin/Globulin Ratio 0.9 L Prolactin Urine Opiates Screen Ur Oxycodone Screen Urine Methadone Screen Ur Barbiturates Screen U Tricyclic Antidepress Ur Phencyclidine Scrn Ur Amphetamines Screen U Methamphetamines Scrn Ur MDMA Scrn (Ecstasy) U Benzodiazepines Scrn Urine Cocaine Screen U Marijuana (THC) Screen Blood Type A Negative Antibody Screen Negative 08/04/18 08/04/18 08/04/18 15:30 15:30 17:25 WBC 5.3 RBC 3.23 L Hgb 9.7 L Hct 29.6 L MCV 91.6 MCH 30.1 MCHC 32.8 RDW 23.0 H Plt Count 264 Neut % (Auto) 68.1 Lymph % (Auto) 22.9 L [place] % (Auto) 7.2 Eos % (Auto) 1.3 L Baso % (Auto) 0.5 Neut # (Auto) 3600 Lymph # (Auto) 1200 [place] # (Auto) 400 Eos # (Auto) 100 Baso # (Auto) 0 RBC Morphology See below Poikilocytosis Anisocytosis 2+ H PT INR APTT Sodium 141 Potassium 3.8 Chloride 115 H Carbon Dioxide 22 BUN 8 Creatinine 0.50 L Estimated GFR > 60.0 BUN/Creatinine Ratio 16.0 Glucose 96 Calcium 8.3 L Magnesium 1.8 Total Bilirubin AST ALT Alkaline Phosphatase B-Natriuretic Peptide < 100 Total Protein Albumin Globulin Albumin/Globulin Ratio Prolactin 44.2 H Urine Opiates Screen Ur Oxycodone Screen Urine Methadone Screen Ur Barbiturates Screen U Tricyclic Antidepress Ur Phencyclidine Scrn Ur Amphetamines Screen U Methamphetamines Scrn Ur MDMA Scrn (Ecstasy) U Benzodiazepines Scrn Urine Cocaine Screen U Marijuana (THC) Screen Blood Type Antibody Screen 08/05/18 06:25 WBC RBC Hgb Hct MCV MCH MCHC RDW Plt Count Neut % (Auto) Lymph % (Auto) [place] % (Auto) Eos % (Auto) Baso % (Auto) Neut # (Auto) Lymph # (Auto) [place] # (Auto) Eos # (Auto) Baso # (Auto) RBC Morphology Poikilocytosis Anisocytosis PT INR APTT Sodium 139 Potassium 3.7 Chloride 113 H Carbon Dioxide 22 BUN 5 L Creatinine 0.50 L Estimated GFR > 60.0 BUN/Creatinine Ratio 10.0 Glucose 70 L Calcium 8.0 L Magnesium Total Bilirubin AST ALT Alkaline Phosphatase B-Natriuretic Peptide Total Protein Albumin Globulin Albumin/Globulin Ratio Prolactin Urine Opiates Screen Ur Oxycodone Screen Urine Methadone Screen Ur Barbiturates Screen U Tricyclic Antidepress Ur Phencyclidine Scrn Ur Amphetamines Screen U Methamphetamines Scrn Ur MDMA Scrn (Ecstasy) U Benzodiazepines Scrn Urine Cocaine Screen U Marijuana (THC) Screen Blood Type Antibody Screen Assessment & Plan Assessment & Plan narrative: 1. Presumed upper GI bleed based on her history. Patient to undergo EGD perhaps colonoscopy as per Dr. Sen. Follow up after the above. 2. Chronic back pain has increased as expected. Patient has had problems with back pain in the past and has been a chronic opiate user. Will increase the number of pills she can take per dose hesitant to increase the strength of the narcotic as this become part of her maintenance program which we want to avoid. Number next dizziness unchanged Quality VTE Deep Vein Thrombosis/Pulmonary Embolism Present on Admission: No
[2018-08-05] MEDS: SODIUM CHLORIDE 0.9% 1,000 ML 100 ML IV (08:45)
--- NOTE | 2018-08-05 09:23 | P.CONS_ITS ---
History of Present Illness Date Patient Seen: 08/05/18 Time Patient Seen: 09:19 Chief complaint: blood in stool,dizzy Reason for consult: Weakness and GI hemorrhage Narrative: Dorina is a pleasant 73-year-old lady who reports that she has had several months of unremitting nausea and vomiting, weight loss, rust colored stools, and generalized weakness. She has a past medical history that is significant for a partial antrectomy sometime in the 1970s for ulcers. She says that she had a 2nd operation after that because her stomach did empty properly. She reports that she has had many endoscopies in the past and that ?Dr. Chavira? did all of her prior studies. Over the last 6 months, she reports a 60 lb weight loss due to loss of appetite. She denies any nausea when she eats but says she just feels that she does not want food. This is more consistent with anorexia than it is with loss of appetite. Additionally, she has had multiple loose stools and what she describes as rust colored stools. She has been evaluated here by Dr. Hernandez in May and had an EGD that was normal. No source of bleeding was appreciated. She was also evaluated [facility] in [place] by Gastroenterology. At that time she refused colonoscopy and no other source of her problem was identified. She presented back to our emergency room with weakness and near fainting. She was admitted to Dr. Zurita and I have been asked to perform repeat upper endoscopy as well as a colonoscopy. [facility] Medical History Chronic back pain (Chronic ~2009) Neuropathy (Chronic ~2008) Headache (Chronic ~1989) Migraines (Chronic ~1989) Restless leg syndrome (Chronic ~1989) Lupus (Chronic ~1999) Arthritis (Chronic) Anemia (Chronic ~2004) Foot pain (Chronic ~2010) Fractures (Chronic ~2011) Gastric ulcer (Chronic ~1991) History of irregular menstrual cycles (Chronic ~1989) Hyperthyroidism (Chronic ~2004) Ovarian cyst (Chronic ~1999) Painful menstrual periods (Chronic ~1978) Chicken pox (Resolved) Measles (Resolved) Mumps (Resolved) Surgical History Gastric bypass status for obesity (Acute) H/O hernia repair (Acute) S/P foot surgery, right (Acute) Hx of resection of stomach (Resolved) Family History Grandfather No problems noted. Grandmother No problems noted. Mother No problems noted. Son Diabetes mellitus Social History marital status: household members: spouse Smoking Status: Never smoker alcohol intake: never substance use type: does not use Family History Grandfather No problems noted. Grandmother No problems noted. Mother No problems noted. Son Diabetes mellitus Social History marital status: household members: spouse Smoking Status: Never smoker alcohol intake: never substance use type: does not use Meds Home Medications Medication Instructions Recorded Confirmed Type Diabetic Shoes 1 pkg MISCELLANEOUS DIRECTED 01/14/18 08/05/18 History Walker: Four Wheel 1 u MISCELLANEOUS DIRECTED 01/14/18 08/05/18 History bupropion HCl 150 mg PO BID 03/05/18 08/04/18 History carbidopa ER 50 mg-levodopa 200 mg 1 tab PO QID PRN tab 06/04/18 08/04/18 History tablet,extended release glimepiride 2 mg tablet 8 mg PO DAILY #360 tab 06/04/18 08/04/18 Rx citalopram 20 mg tablet 40 mg PO DAILY #60 tab 07/04/18 08/04/18 Rx levothyroxine 175 mcg tablet 175 mcg PO DAILY #90 tab 07/22/18 08/04/18 Rx ferrous sulfate [FeroSul] 1 tab PO BID 08/04/18 08/04/18 History hydrocodone-acetaminophen 1 tab PO QID PRN 08/04/18 08/04/18 History midodrine 10 mg PO DAILY 08/04/18 08/04/18 History temazepam 1 tab PO BEDTIME 08/04/18 08/04/18 History Allergies Allergy/AdvReac Type Severity Reaction Status Date / Time amoxicillin [From AUGMENTIN] Allergy Mild RASH Verified 08/04/18 12:58 clavulanic acid Allergy Mild RASH Verified 08/04/18 12:58 [From AUGMENTIN] metformin [METFORMIN] AdvReac Severe SWELLING Verified 08/04/18 12:58 Review of Systems Review of Systems All systems reviewed & are unremarkable except as noted in HPI and below Exam Vital Signs (past 8 hours): - 08/05/18 03:08 08/05/18 08:00 08/05/18 08:44 Temperature 97.5 F L 98.2 F 97.8 F Pulse Rate 73 88 87 Respiratory Rate 18 18 16 Blood Pressure 112/63 123/67 131/77 Pulse Oximetry 100 100 100 Oxygen Delivery Method Room Air Oxygen Flow Rate 0 Narrative Exam Narrative: Pleasant lady who does not appear ill. HEENT: Normocephalic and atraumatic, pupils are equal round reactive to light accommodation. Sclera are anicteric and are somewhat pale. Lungs: Essentially clear bilaterally Heart: Regular rate and rhythm without murmur rub or gallop Abdomen: Soft, minimal epigastric tenderness to palpation. Normoactive bowel sounds. Well-healed surgical abdominal incisions without palpable defect Extremities: Warm and well perfused without edema Objective Labs Result Diagrams: 08/04/18 17:25 08/05/18 06:25 Labs: Laboratory Results - last 24 hr 08/04/18 08/04/18 08/04/18 12:45 13:05 13:05 WBC 5.2 RBC 3.60 L Hgb 10.8 L Hct 33.2 L MCV 92.4 MCH 30.1 MCHC 32.6 RDW 23.0 H Plt Count 273 Neut % (Auto) 84.9 H Lymph % (Auto) 10.4 L [place] % (Auto) 3.7 Eos % (Auto) 0.5 L Baso % (Auto) 0.5 Neut # (Auto) 4400 Lymph # (Auto) 500 L [place] # (Auto) 200 Eos # (Auto) 0 Baso # (Auto) 0 RBC Morphology See below Poikilocytosis 1+ H Anisocytosis 2+ H PT 12.3 INR 1.1 APTT 31 Sodium Potassium Chloride Carbon Dioxide BUN Creatinine Estimated GFR BUN/Creatinine Ratio Glucose Calcium Magnesium Total Bilirubin AST ALT Alkaline Phosphatase B-Natriuretic Peptide Total Protein Albumin Globulin Albumin/Globulin Ratio Prolactin Urine Opiates Screen Positive H Ur Oxycodone Screen Negative Urine Methadone Screen Negative Ur Barbiturates Screen Negative U Tricyclic Antidepress Negative Ur Phencyclidine Scrn Negative Ur Amphetamines Screen Negative U Methamphetamines Scrn Negative Ur MDMA Scrn (Ecstasy) Negative U Benzodiazepines Scrn Positive H Urine Cocaine Screen Negative U Marijuana (THC) Screen Positive H Blood Type Antibody Screen 08/04/18 08/04/18 08/04/18 13:05 13:05 15:30 WBC 5.3 RBC 3.15 L Hgb 9.5 L Hct 29.0 L MCV 92.0 MCH 30.1 MCHC 32.7 RDW 22.9 H Plt Count 247 Neut % (Auto) 75.5 H Lymph % (Auto) 16.5 L [place] % (Auto) 6.7 Eos % (Auto) 0.7 L Baso % (Auto) 0.6 Neut # (Auto) 4000 Lymph # (Auto) 900 L [place] # (Auto) 400 Eos # (Auto) 0 Baso # (Auto) 0 RBC Morphology See below Poikilocytosis 1+ H Anisocytosis 2+ H PT INR APTT Sodium 138 Potassium 3.2 L Chloride 111 H Carbon Dioxide 19 L BUN 9 Creatinine 0.60 Estimated GFR > 60.0 BUN/Creatinine Ratio 15.0 Glucose 194 H Calcium 8.7 Magnesium Total Bilirubin 0.1 L AST 15 ALT 15 Alkaline Phosphatase 82 B-Natriuretic Peptide Total Protein 5.2 L Albumin 2.5 L Globulin 2.7 Albumin/Globulin Ratio 0.9 L Prolactin Urine Opiates Screen Ur Oxycodone Screen Urine Methadone Screen Ur Barbiturates Screen U Tricyclic Antidepress Ur Phencyclidine Scrn Ur Amphetamines Screen U Methamphetamines Scrn Ur MDMA Scrn (Ecstasy) U Benzodiazepines Scrn Urine Cocaine Screen U Marijuana (THC) Screen Blood Type A Negative Antibody Screen Negative 08/04/18 08/04/18 08/04/18 15:30 15:30 17:25 WBC 5.3 RBC 3.23 L Hgb 9.7 L Hct 29.6 L MCV 91.6 MCH 30.1 MCHC 32.8 RDW 23.0 H Plt Count 264 Neut % (Auto) 68.1 Lymph % (Auto) 22.9 L [place] % (Auto) 7.2 Eos % (Auto) 1.3 L Baso % (Auto) 0.5 Neut # (Auto) 3600 Lymph # (Auto) 1200 [place] # (Auto) 400 Eos # (Auto) 100 Baso # (Auto) 0 RBC Morphology See below Poikilocytosis Anisocytosis 2+ H PT INR APTT Sodium 141 Potassium 3.8 Chloride 115 H Carbon Dioxide 22 BUN 8 Creatinine 0.50 L Estimated GFR > 60.0 BUN/Creatinine Ratio 16.0 Glucose 96 Calcium 8.3 L Magnesium 1.8 Total Bilirubin AST ALT Alkaline Phosphatase B-Natriuretic Peptide < 100 Total Protein Albumin Globulin Albumin/Globulin Ratio Prolactin 44.2 H Urine Opiates Screen Ur Oxycodone Screen Urine Methadone Screen Ur Barbiturates Screen U Tricyclic Antidepress Ur Phencyclidine Scrn Ur Amphetamines Screen U Methamphetamines Scrn Ur MDMA Scrn (Ecstasy) U Benzodiazepines Scrn Urine Cocaine Screen U Marijuana (THC) Screen Blood Type Antibody Screen 08/05/18 06:25 WBC RBC Hgb Hct MCV MCH MCHC RDW Plt Count Neut % (Auto) Lymph % (Auto) [place] % (Auto) Eos % (Auto) Baso % (Auto) Neut # (Auto) Lymph # (Auto) [place] # (Auto) Eos # (Auto) Baso # (Auto) RBC Morphology Poikilocytosis Anisocytosis PT INR APTT Sodium 139 Potassium 3.7 Chloride 113 H Carbon Dioxide 22 BUN 5 L Creatinine 0.50 L Estimated GFR > 60.0 BUN/Creatinine Ratio 10.0 Glucose 70 L Calcium 8.0 L Magnesium Total Bilirubin AST ALT Alkaline Phosphatase B-Natriuretic Peptide Total Protein Albumin Globulin Albumin/Globulin Ratio Prolactin Urine Opiates Screen Ur Oxycodone Screen Urine Methadone Screen Ur Barbiturates Screen U Tricyclic Antidepress Ur Phencyclidine Scrn Ur Amphetamines Screen U Methamphetamines Scrn Ur MDMA Scrn (Ecstasy) U Benzodiazepines Scrn Urine Cocaine Screen U Marijuana (THC) Screen Blood Type Antibody Screen Assessment & Plan Assessment & Plan narrative: Very pleasant lady with evidence of gastrointestinal hemorrhage and a complex history including antrectomy for ulcer disease. We discussed the risks and benefits of repeat EGD and colonoscopy and the patient expressed a desire to complete the procedure today.
--- NOTE | 2018-08-05 09:51 | PC.NURSE ---
Addendum entered by Christy Crabtree R.N. 08/05/18 14:48: POST OP - arrived 1305, pt alert, states she is hungry, ivy juice and snack in pacu with cbg at 78, ra 100%, p88, pt 90's/60's,states back pain ok for now, after lunch given norco 5/325mg x 2 tabs for back discomfort 8 on scale 10. Original Note: AM NOTE - pt is awake, complaint no sleep last night due to back pain, ra 100%, hr 88, Dr. Sen and in this am, pacu arrived 830 and ivf saline lock, taken surg.
[2018-08-05] MEDS: ONDANSETRON 4 MG/2 ML INJ IV (10:28)
[2018-08-05] MEDS: MIDAZOLAM 5 MG/5 ML VIAL IV (11:25)
[2018-08-05] MEDS: fentaNYL 250 MCG/5 ML INJ IV (11:26)
[2018-08-05] MEDS: TETRACAINE/BENZOCAINE/BUTAMBEN (CETACAINE) BOTTLE 1 SPRAY TOP (11:27)
[2018-08-05] MEDS: LIDOCAINE 4% SOLN 50 ML 20 ML TOP (11:28)
--- NOTE | 2018-08-05 12:24 | PM.OP.1 ---
Operative Date/Time/Diagnoses Date of procedure: 08/05/18 Time of procedure: 12:24 Pre-op diagnosis: Weakness Post-op diagnosis: same Procedure & Clinicians Procedure: Esophagogastroduodenoscopy with biopsies and colonoscopy to the cecum with biopsies and cultures Same procedure as scheduled: Yes Indications: Last colonoscopy more than 5 years ago Abdominal pain, weakness, possible GI hemorrhage Surgeon: Barbra Sen Click Yes if Unassisted: Yes Anesthesia Type: Sedation (Versed 12 mg; fentanyl 350 micro g) Operative Notes Findings: 1. Gastrojejunostomy in good repair with patent proximal and distal loops. No evidence of ulceration. 2. Normal-appearing esophagus 3. Normal posterior oropharynx 4. Lax, atonic colon. 5. No polyps or mass lesions appreciated. No AV malformations appreciated. No stigmata of recent bleeding. 6. Markedly decreased anal sphincter tone 7. Mucosa is essentially normal in appearance with some very faint speckling on the right side 8. Grade 2 internal hemorrhoids Specimen(s): other (1. Random mucosal biopsies obtained with cold forceps, 2. GI panel for PCR) Estimated Blood Loss (mL): 1 Procedure in detail: After obtaining informed consent, the patient was brought to the GI suite and placed in the left lateral decubitus position on the examination table. After placement of appropriate monitors, the patient was given incremental doses of Versed and Fentanyl until an appropriate level of sedation was achieved. A time out was held per SCOAP protocol. We began with EGD. A bite block was gently placed between the patient's teeth. The endoscope was lubricated and then passed into the patient's posterior oropharynx. The esophagus was cannulated under direct vision and the scope was passed to the second portion of the duodenum without difficulty. The scope was then withdrawn with careful examination of all areas of the upper GI tract and mucosa. In the stomach, the instrument was retroflexed and the GE junction examined. The scope was straightened and the procedure continued with examination of the remainder of the upper GI tract. Findings are noted above. Air was aspirated from the stomach and the endoscope gently removed from the esophagus. The examination table was turned and we continued with the colonoscopy. A digital rectal examination was performed and did not reveal any masses or obstructing lesions. The colonoscope was gently passed into the patient's anus and the entire colon navigated to the level of the cecum with profound difficulty due to tortuosity and laxity of the colon as well as the patient's intolerance to IV sedation. Once in the cecum, the scope was withdrawn being sure to go before and beyond all mucosal folds and prominences and get an excellent examination. The findings are noted above. At the level of the rectal vault, the scope was retroflexed and the internal anal canal was examined. The scope was straightened and air aspirated from the colon. The instrument was removed from the patient's body and the procedure was concluded. The patient was allowed to awaken from sedation without difficulty and taken to the post-anesthesia care unit in good condition. Total sedation time was 46 minutes Total colonoscopy withdrawal time was 12 minutes Complications: none Condition: stable Disposition: PACU Plan for aftercare: 1. No obvious explanation for the patient's recent weight loss and other symptoms 2. Any additional invasive procedures should be performed only with monitored anesthesia care or general anesthesia. 3. Await biopsy results
[2018-08-05] MEDS: CITALOPRAM 20 MG TABLET 40 MG PO (13:12)
[2018-08-05] MEDS: buPROPion SR 150 MG TAB PO ×2 (13:12→21:15)
[2018-08-05] MEDS: MIDODRINE HCL 5 MG TABLET 10 MG PO (13:12)
[2018-08-05] MEDS: FERROUS SULFATE 325 MG TABLET PO ×2 (13:13→21:15)
--- NOTE | 2018-08-05 13:26 | SUR.PHASEI ---
late entry: stable pacu stay, report called, pt ate applesauce and drank juice. bp low, pt asymptomatic.
[2018-08-05] MEDS: HYDROCODONE/ACET 5/325 TABLET 2 TAB PO ×2 (14:23→18:56)
--- NOTE | 2018-08-05 14:23 | CM.DANOTE ---
DCP: Case received, EMR reviewed and met with patient. Introduced self and role. DCP template completed with information currently available. Patient is a 73 year old female who admitted yesterday afternoon to the care of the hospitalist team. PCP: Dr. Zurita. Payer: confirmed: Medicare/[facility]. Patient came to hospital via family vehicle due to some dizziness, and blood in her stools. Patient has history of diabetes, neuropathy. She had EGD, and Colonoscopy done today. Met with patient in room, her at bedside. Patient is alert and oriented. 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 She resides in [place] with her . She has been concerned about her weight loss, for she has not had much of an appetite. Patient uses a walker at home. She stated that she has been using [employer], but wants to eventually go to outpatient at [facility]. She would need a resumption first, from [facility], so they can DC her. Spoke to Claritza at [employer], and she stated that nursing has been coming in, but she was not sure about therapy. Patient does not drive, due to her neuropathy. She also wants her doctor to get her a referral to a therapeutic strategy lead regarding raised area behind right ear. She will address this with Dr. Zurita tomorrow as well. P: DCP to continue to follow. Patient should be able to discharge home when stable. She will need resumption orders for home health, and she can speak to her provider about outpatient P.T. at next appt. Cele Sherwood RN/Legal Office Administrator
[2018-08-05] MEDS: CARBIDOPA-LEVODOPA ER 50/200 TABLET 1 EACH PO ×2 (14:25→18:56)
[2018-08-05 17:41] LABS: Campylobacter Not Detected (Not Detect); Enteroaggregative E.coli Not Detected (Not Detect); Enteropathogenic E.coli Not Detected (Not Detect); Enterotoxigenic E.coli It/st Not Detected (Not Detect); Plesiomonsa shigelloides Not Detected (Not Detect); Salmonella Not Detected (Not Detect); Shiga-like toxin-prod E.coli Not Detected (Not Detect); Vibrio Not Detected (Not Detect); Vibrio cholerae Not Detected (Not Detect); Yersinia enterocolitica Not Detected (Not Detect)
[2018-08-05 17:43] LABS: Adenovirus F 40/41 Not Detected (Not Detect); Astrovirus Not Detected (Not Detect); Cryptosporidium Not Detected (Not Detect); Cyclospora cayetanensis Not Detected (Not Detect); Entamoeba histolytica Not Detected (Not Detect); Giardia lamblia Not Detected (Not Detect); Norovirus GI/GII Not Detected (Not Detect); Rotavirus A Not Detected (Not Detect); Sapovirus Not Detected (Not Detect); Shigella/Enteroinvasive E.coli Not Detected (Not Detect)
[2018-08-05 17:47] LABS: Clostridium difficile toxin AB Detected (Not Detect)
[2018-08-05] MEDS: TEMAZEPAM 15 MG CAPSULE PO (21:15)
--- NOTE | 2018-08-05 22:48 | PC.NURSE ---
1944- Lab repoorts pt is positive for c-diff, placed on contact precautions. 2014 blood glucose-47, gave apple juice and jellow, 2129- blood glucose-64, gave an additional juice, Dr notified, glimepiride 8mg held until Dr. Zurita is notified tomorrow. Tele- NSR 90 and 74. LFA D5NS @ 100 infusing. 1PA FWW up to chair for dinner, BSC for voiding, chronic back pain with norco 2 tabs for pain management. Flagyl 500mg IV Q-8hr for c-diff. bed alarm on.
[2018-08-06] VITALS (8 sets, daily range): BP systolic 92–127; BP diastolic 54–74; PULSE 76–82; RESP 16–18; TEMP 36.6–37.6; O2SAT 97–100
--- NOTE | 2018-08-06 00:43 | PC.NURSE ---
2340- Prev RN informed this RN pt was having bouts of low BG levels. Rechecked by myself at the start of my shift and BG 47; pt asymptomatic lying in bed. Pt able to drink two boxes of orange juice, two packages of evin crackers, and pudding. 0000- Rechecked BG per protocol; stable at 102. Will cont to monitor thru the night. Pt on contact precautions for cdiff; wearing cont SpO2 w/ stable sats. D5 NS running into L AC as ordered. Moving 1PA to BSC; taking PO [place] for pain control. On tele reading SR/ST (with movement). 0230- BG back down to 57; MD called. Gave pt juice; per protocol will recheck in 20 minutes & call MD again if needed. 0300- BG stable at 129; will pass onto day RN. Pt asymptomatic w/ each fluctuation in BG level. 0415- IV infiltrated; pt asking for catheter to be removed. This RN attempted to place new peripheral IV twice, pt refused any other nurse attempt to place IV. MD Sharpe called regarding pt's request for PICC line. She stated there is no need for PICC, and pt should be fine without IV fluids running. She also stated she would pass this information onto Dr Zurita. Will recheck BG and make sure pt is drinking adequate fluids. 0520- Pt allowed another RN to attempt IV insertion x2 with no luck. Dr Zurita aware and IV fluids remain off, pt drinking adequate amounts of fluid. 0600- BG 61 when checked; pt asymptomatic. aware of fluctuating levels, no new orders. PO OJ & PB & crackers given. Will recheck. 0620- BG 80 after pt had juice and food.
[2018-08-06] MEDS: HYDROCODONE/ACET 5/325 TABLET 2 TAB PO ×4 (02:43→20:54)
[2018-08-06] MEDS: DEXTROSE 5%-0.9% NS 1,000 ML 100 ML IV (03:52)
[2018-08-06 05:40] LABS: Add Manual Diff / Slide Review NO; Basophils Absolute Auto 0 /uL (0-100); Basophils Percent Auto 0.5 % (0-2); Eosinophils Absolute Auto 400 /uL (0-450); Eosinophils Percent Auto 6.7 % (2-4); Hematocrit 29.7 % (36-46); Hemoglobin 9.8 g/dL (12.0-16.0); Lymphocytes Absolute Auto 1600 /uL (1100-4500); Lymphocytes Percent Auto 26.5 % (25-40); Mean Corpuscular HGB Conc 33.1 % (30-36); Mean Corpuscular Hemoglobin 30.7 PG (26-34); Mean Corpuscular Volume 92.7 fL (80-100); Monocytes Absolute Auto 500 /uL (0-900); Monocytes Percent Auto 7.7 % (3-14); Neutrophils Absolute Auto 3600 /uL (1500-7000); Neutrophils Percent Auto 58.6 % (50-75); Platelet Count 237 X10^3/uL (150-400); Red Cell Distribution Width 23.2 % (11.6-14.8); White Blood Cell Count 6.1 X10^3/uL (4.5-11.0)
[2018-08-06] MEDS: LEVOTHYROXINE 75 MCG TABLET PO (05:48)
[2018-08-06] MEDS: LEVOTHYROXINE 100 MCG TABLET PO (05:48)
[2018-08-06 05:58] LABS: Anisocytosis 2+
[2018-08-06] MEDS: MIDODRINE HCL 5 MG TABLET 10 MG PO (08:49)
[2018-08-06] MEDS: buPROPion SR 150 MG TAB PO ×2 (08:49→20:54)
[2018-08-06] MEDS: FERROUS SULFATE 325 MG TABLET PO ×2 (08:49→20:54)
[2018-08-06] MEDS: CITALOPRAM 20 MG TABLET 40 MG PO (08:50)
[2018-08-06] MEDS: metroNIDAZOLE 500 MG TABLET PO ×3 (08:50→21:03)
--- NOTE | 2018-08-06 10:35 | CM.DPC ---
DCP Cont: Discussed patient with Dr. Zurita. He stated that she is not ready to go home yet, since she now has C-Diff. Brought up her concerns from yesterday, regarding physical therapy and dermatology consult. Did let him know that patient is still under [facility], for she has been having nursing come in. Let him know, will have to resume at discharge. P:DCP to continue to follow. Should be able to go home when stable, will need resumption for [facility], for nursing visits. Cele Sherwood RN/Sand Tester
--- NOTE | 2018-08-06 10:44 | PC.NURSE ---
Addendum entered by Christy Crabtree R.N. 08/06/18 14:51: PAIN - states back discomfort 9 on scale 0/10, given norco x2 tab. Original Note: AM NOTE - awake, states didn't sleep well last night, no complaint lightheadedness now but states felt dizzy after her shower during the night, bp 92/54, cbg 88 this am, ivy diet, back pain 8 on scale 0/10, given norco x2 tabs after breakfast, in and tele will be dc'd, ok leave out saline lock.
[2018-08-06] MEDS: CARBIDOPA-LEVODOPA ER 50/200 TABLET 1 EACH PO (12:02)
--- NOTE | 2018-08-06 13:14 | P.PN_ITS ---
Subjective Date Patient Seen: 08/06/18 Time Patient Seen: 09:07 Interval history: Dizziness Dizziness has improved significantly. She only got dizzy when she is up in the shower yesterday. Is not dizzy in bed overall the dizziness and has improved significantly. No stools since colonoscopy yesterday. Patient is asymptomatic with her hypoglycemia she apparently has had several events of hypoglycemia last 24 hours and was totally asymptomatic with the mall. Excited that Dr. Sen has made a diagnosis she has been frustrated and depressed with the fact that no one ever found anything wrong and now she has ?hope? . Additionally he is getting good response of pain medication management with hydrocodone Exam Vital Signs (past 8 hours): - 08/06/18 07:39 08/06/18 09:27 08/06/18 11:00 Temperature 98.3 F 98.0 F Pulse Rate 82 76 Respiratory Rate 16 18 Blood Pressure 92/54 L 114/68 Pulse Oximetry 100 100 100 Oxygen Delivery Method Room Air Oxygen Flow Rate 0 Narrative Exam Narrative: Patient resting quietly in hospital bed appears in no distress lungs are clear heart regular rhythm abdomen is benign Objective Labs Result Diagrams: 08/06/18 04:53 08/05/18 06:25 Labs: Laboratory Results - last 24 hr 08/05/18 08/06/18 11:39 04:53 WBC 6.1 RBC 3.20 L Hgb 9.8 L Hct 29.7 L MCV 92.7 MCH 30.7 MCHC 33.1 RDW 23.2 H Plt Count 237 Neut % (Auto) 58.6 Lymph % (Auto) 26.5 [place] % (Auto) 7.7 Eos % (Auto) 6.7 H Baso % (Auto) 0.5 Neut # (Auto) 3600 Lymph # (Auto) 1600 [place] # (Auto) 500 Eos # (Auto) 400 Baso # (Auto) 0 RBC Morphology See below Anisocytosis 2+ H Stl C. cayetanensis PCR Not detected Stool Rotavirus (PCR) Not detected Stool Adenovirus (PCR) Not detected Stool Astrovirus (PCR) Not detected Stool Cryptosporidium PCR Not detected Stl E.coli Shiga Tox PCR Not detected St Sh/Enteroin Ecoli PCR Not detected Stool E coli O157 PCR Not Reportable Stl Enterotoxigenic E PCR Not detected Stool EPEC (PCR) Not detected Stl E. histolytica PCR Not detected Stool Giardia [place] PCR Not detected Stool Sapovirus (PCR) Not detected Stl P. shigelloides PCR Not detected St Y.enterocolitica PCR Not detected Stool Vibrio (PCR) Not detected Stl Vibrio cholerae PCR Not detected Stl Enteroaggr Ecoli PCR Not detected Stl Norovirus GI/GII PCR Not detected Campylobacter (PCR) Not detected C. difficile Tox (PCR) Detected H Salmonella (PCR) Not detected Labs noted as above. Of significance was positive C difficile via PCR Chem BGs have been consistently under 100 glimepiride has since been discontinued altogether Assessment & Plan Assessment & Plan narrative: 1. Apparent totally normal EGD and colonoscopy as per Dr. Sen no evidence for GI bleeding . 2. New onset diagnosis of C difficile. Has been treated with metronidazole. 3. Persistent hypoglycemia will discontinue glimepiride reconsider treatment once her blood sugar stabilizes which may take several days. For the time being she she will be on no medications to treat diabetes. Major part of this is her poor nutrition which hopefully will improve as she starts to feel better. 4. Chronic back pain particularly worse in the hospital. 5. Patient related readily admit that she was feeling depressed over the last several weeks due to the chronic symptoms with no obvious explanation. She has a little bit optimistic now that he has something to treat. Patient 6. Patient requests referral to Physical therapy Department and would be which will be done upon discharge Quality VTE Deep Vein Thrombosis/Pulmonary Embolism Present on Admission: No
[2018-08-06] MEDS: TEMAZEPAM 15 MG CAPSULE PO (21:02)
[2018-08-07] VITALS (7 sets, daily range): BP systolic 103–133; BP diastolic 58–83; PULSE 72–88; RESP 16–85; TEMP 36.6–37.2; O2SAT 97–100
--- NOTE | 2018-08-07 00:47 | PC.NURSE ---
2300- Pt on contact precautions for cdiff infection; PO abx in place. BG stable at 121, checked at the start of our shift as pt's BG levels fluctuated greatly last night. No IV access, MD aware. On RA w/ VSS; moving to BSC 1PA. 0200- BG 96; pt stable at this time. 0518- Pt CO back pain, medicated w/ PO [place]. No difficulty swallowing; no pain. Pt asking for sleep at this time.
[2018-08-07] MEDS: HYDROCODONE/ACET 5/325 TABLET 2 TAB PO ×4 (05:18→20:37)
[2018-08-07] MEDS: LEVOTHYROXINE 100 MCG TABLET PO (05:24)
[2018-08-07] MEDS: LEVOTHYROXINE 75 MCG TABLET PO (05:24)
[2018-08-07 05:58] LABS: Add Manual Diff / Slide Review NO; Basophils Absolute Auto 0 /uL (0-100); Basophils Percent Auto 0.4 % (0-2); Eosinophils Absolute Auto 400 /uL (0-450); Eosinophils Percent Auto 7.9 % (2-4); Hematocrit 26.1 % (36-46); Hemoglobin 8.8 g/dL (12.0-16.0); Lymphocytes Absolute Auto 1100 /uL (1100-4500); Mean Corpuscular HGB Conc 33.7 % (30-36); Monocytes Absolute Auto 400 /uL (0-900); Monocytes Percent Auto 8.3 % (3-14); Neutrophils Absolute Auto 3400 /uL (1500-7000); Neutrophils Percent Auto 62.4 % (50-75); Platelet Count 222 X10^3/uL (150-400); Red Blood Cell Count 2.84 X10^6/uL (4.0-5.2); Red Cell Distribution Width 22.5 % (11.6-14.8); White Blood Cell Count 5.4 X10^3/uL (4.5-11.0)
[2018-08-07 06:20] LABS: HEMOLYSIS < 15 (0-50); Potassium 4.1 mmol/L (3.4-5.1)
[2018-08-07 06:21] LABS: BUN Creatinine Ratio 13.3 (6-22); Blood Urea Nitrogen 8 mg/dL (7-17); Calcium 8.2 mg/dL (8.4-10.2); Carbon Dioxide 22 mmol/L (22-32); Chloride 111 mmol/L (98-107); Estimated Glomerular Filt Rate > 60.0 mL/min (>60); Glucose 80 mg/dL (80-110); Sodium 137 mmol/L (137-145)
[2018-08-07 06:37] LABS: Anisocytosis 2+
[2018-08-07] MEDS: FERROUS SULFATE 325 MG TABLET PO ×2 (09:15→20:37)
[2018-08-07] MEDS: MIDODRINE HCL 5 MG TABLET 10 MG PO (09:16)
[2018-08-07] MEDS: metroNIDAZOLE 500 MG TABLET PO ×3 (09:16→20:37)
[2018-08-07] MEDS: buPROPion SR 150 MG TAB PO ×2 (09:16→20:37)
[2018-08-07] MEDS: CITALOPRAM 20 MG TABLET 40 MG PO (09:17)
--- NOTE | 2018-08-07 13:25 | PM.PN.1 ---
Subjective Date Patient Seen: 08/07/18 Time Patient Seen: 07:25 Interval history: Dizziness Patient feeling much better not quite back up her usual but dizziness as essentially resolved she has been ambulating in the room with assistance. Attempting to go out in the hallway now. Has not had a stool since yesterday. Having no abdominal pain appetite has improved overall she feels much better than she has for several days. Concerned about her bilateral lower edema and she has a +1 edema over ankles which is chronic is discussed and early non medical problem Exam Vital Signs (past 8 hours): - 08/07/18 07:00 08/07/18 08:00 Temperature 98.6 F Pulse Rate 77 Respiratory Rate 16 Blood Pressure 115/70 Pulse Oximetry 97 97 Oxygen Delivery Method Room Air Oxygen Flow Rate 0 Narrative Exam Narrative: Patient is sitting on side of the bed resting quietly appears in no distress much more conversant much more alert and oriented than she has been in the past actually looks in pretty good spirits. Lungs are clear heart regular rhythm. Abdominal exam no tenderness no masses. Lower extremities showed trace pedal edema Objective Labs Result Diagrams: 08/07/18 05:11 08/07/18 05:11 Labs: Laboratory Results - last 24 hr 08/07/18 08/07/18 05:11 05:11 WBC 5.4 RBC 2.84 L Hgb 8.8 L Hct 26.1 L MCV 92.0 MCH 31.0 MCHC 33.7 RDW 22.5 H Plt Count 222 Neut % (Auto) 62.4 Lymph % (Auto) 21.0 L [place] % (Auto) 8.3 Eos % (Auto) 7.9 H Baso % (Auto) 0.4 Neut # (Auto) 3400 Lymph # (Auto) 1100 [place] # (Auto) 400 Eos # (Auto) 400 Baso # (Auto) 0 RBC Morphology See below Anisocytosis 2+ H Sodium 137 Potassium 4.1 Chloride 111 H Carbon Dioxide 22 BUN 8 Creatinine 0.60 Estimated GFR > 60.0 BUN/Creatinine Ratio 13.3 Glucose 80 Calcium 8.2 L labs from today had a decrease in hemoglobin will check again tomorrow Assessment & Plan Assessment & Plan narrative: 1. Apparent acute C difficile infection treated appropriately with antibiotics and seem like it may have resolved. Patient minimally symptomatic at this time. Will continue her on her medication however. 2. Dizziness pretty well resolved patient may well have some chronic dizziness apparent as she has had this for for several months. 3. Decrease in hemoglobin the patient is is unable to absorb iron apparently as we had done the studies in the past no apparent blood loss. Hemoglobin does not warrant transfusion at this time will see how it is tomorrow Things stabilize out patient may be recovered enough to be discharged Quality VTE Deep Vein Thrombosis/Pulmonary Embolism Present on Admission: No
[2018-08-07] MEDS: BUTALB/APAP/CAFFEINE 50/325/40 TABLET 1 EACH PO (17:34)
[2018-08-07] MEDS: TEMAZEPAM 15 MG CAPSULE PO (20:37)
[2018-08-08] MEDS: CARBIDOPA-LEVODOPA ER 50/200 TABLET 1 EACH PO (00:16)
[2018-08-08 00:25] VITALS: BP 119/72; PULSE 78; RESP 16; TEMP 36.5; O2SAT 94
[2018-08-08 01:00] VITALS: O2SAT 95
[2018-08-08] MEDS: HYDROCODONE/ACET 5/325 TABLET 2 TAB PO ×2 (03:13→08:38)
[2018-08-08] MEDS: LEVOTHYROXINE 100 MCG TABLET PO (05:37)
[2018-08-08] MEDS: LEVOTHYROXINE 75 MCG TABLET PO (05:38)
[2018-08-08] MEDS: BUTALB/APAP/CAFFEINE 50/325/40 TABLET 1 EACH PO (05:57)
[2018-08-08 07:00] VITALS: O2SAT 98
[2018-08-08 08:00] VITALS: BP 130/55; PULSE 80; RESP 16; TEMP 36.7; O2SAT 99
[2018-08-08] MEDS: CITALOPRAM 20 MG TABLET 40 MG PO (08:38)
[2018-08-08] MEDS: MIDODRINE HCL 5 MG TABLET 10 MG PO (08:39)
[2018-08-08] MEDS: FERROUS SULFATE 325 MG TABLET PO (08:39)
[2018-08-08] MEDS: metroNIDAZOLE 500 MG TABLET PO (08:39)
[2018-08-08] MEDS: buPROPion SR 150 MG TAB PO (08:39)
--- NOTE | 2018-08-08 08:46 | PM.DS.1 ---
History of Present Illness Chief complaint: blood in stool,dizzy Narrative: GI bleed Patient presented to the emergency room this afternoon. She relates that since she has been feeling very dizzy when she gets up and walks lightheadedness when she gets dizzy she sits still and the dizziness goes away if she will get up again she would feel lightheaded and dizzy. Soon mild spastic but severe on to the point where she requires help from her to ambulate. Additionally stools on became more frequent looser and turned a dark reddish ?rust colored? looking stool. This could persisted until today her last stool was this morning. She denies any bright red blood per rectum nor she admits that the stools were actually melanotic although she must admits she has actually looked at them other than what was in the stool water. She has chronic abdominal pain that has unchanged. Some nausea. Does not take nonsteroidal anti-inflammatories. She has a significant history recently of of multiple GI complaints nausea vomiting decreased appetite has lost her mouth because of all the above she was seen in consultation by Dr. Gerald Hernandez surgeon here who did an evaluation with no obvious etiology. Additionally she was seen by Gastroenterology at [place] was hospitalized there seen by did 2 of 3 different diesel engine specialist underwent a thorough gastroenterology study and no obvious explanation was found for nausea vomiting and weight loss. They were aware of prior history of anemia and found no evidence of anemia. She does have a history of iron deficiency this is chronic and is felt to be due to malabsorption. Patient has had some sort of gastrointestinal bypass surgery is unclear with the purpose unclear when was done several years ago. Unclear whether not it was bariatric surgery verses ulcer surgery op report not available. There was some question about whether not patient has gastroparesis but patient tolerated this CT contrast without difficulty so that became less likely. A HIDA scan has been scheduled for [facility] and reportedly did not occur. 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 Discharge Providers Date of admission: 08/04/18 14:10 Discharge Date: 08/08/18 Primary care physician: Corby Zurita MD Consults: 08/04/18 15:11 Consult to Physician Routine Comment: Consulting Provider: Barbra Sen Reason for consultation: ugi bleed Has provider been notified: Yes Discharge provider: Corby Zurita MD Summary Discharge Diagnosis: 1. Clostridium difficile enteritis. 2. Persistent hypoglycemia. 3. Chronic iron deficiency anemia. 4. Chronic low back pain. 5. Chronic depression stable. 6. Chronic restless legs stable. 7. Chronically disorder stable Hospital Course: Patient was admitted for evaluation of weakness and questionable GI bleed. He underwent consultation by Dr. Sen general surgeon. Patient soon thereafter experienced EGD and colonoscopy both of which were normal as per Dr. Sen. No evidence for bleeding and no source of any blood loss at the time of the scoping. Meanwhile patient developed Clostridium difficile was being treated with Flagyl and her symptoms totally resolved has had not a bowel movement for a day having no abdominal pain no nausea have a tight has improved. Patient was also having some issues with depression this is all improved significantly since she has a diagnosis of a something that is treatable. Patient was discharged on metronidazole 250 mg 3 times a day. Additionally we withheld her glimepiride because her blood sugars consistently run in the 80s she had some lower ones asymptomatic. We will keep her off her glimepiride indefinitely. She will be monitoring her blood sugars daily at home and I will see her back on August 27 when she has an appointment. Remainder medications are stable We upped the dose of her hydrocodone to 2 tablets 4 times a day with dissipation cutting back to 1 tablet 4 times a day when she becomes more active as activity as part of the treatment for low back pain Status at Discharge Cognitive/behavioral status at discharge: oriented and at baseline, oriented Functional status at discharge: uses cane/walker Overall status at discharge: patient is progressing back to baseline Exam Vital Signs (past 8 hours): - 08/08/18 01:00 08/08/18 08:00 Temperature 98.1 F Pulse Rate 80 Respiratory Rate 16 Blood Pressure 130/55 L Pulse Oximetry 95 99 Oxygen Delivery Method Room Air Oxygen Flow Rate 0 Narrative Exam Narrative: Exam today patient is has her street clothes on the radio go home. She looks much more animated than she has in the past appears in no distress. Lungs are clear heart regular rhythm. Abdominal exam is totally benign with no masses and no tenderness Objective Labs Result Diagrams: 08/07/18 05:11 08/07/18 05:11 Discharge Plan Discharge Plan Patient Disposition: Home Discharge comment: check chem bg qam has appt w chevy August 27 Discharge Med Rec/Prescriptions Prescriptions: New metronidazole 500 mg Tablet 500 mg PO TID Qty: 0 RF: 0 metronidazole 250 mg tablet 250 mg PO TID Qty: 21 RF: 0 hydrocodone-acetaminophen [[place]] 5-325 mg tablet 2 tab PO QID PRN (Reason: pain) Qty: 240 RF: 0 Continued levothyroxine [Synthroid] 175 mcg tablet 175 mcg PO DAILY Qty: 90 RF: 1 carbidopa-levodopa 50-200 mg tablet extended release 1 tab PO QID PRN (Reason: restless legs) RF: 0 citalopram 20 mg tablet 40 mg PO DAILY Qty: 60 RF: 5 Walker: Four Wheel 1 u miscellaneous DIRECTED RF: 0 Diabetic Shoes 1 pkg miscellaneous DIRECTED RF: 0 bupropion HCl 150 mg tablet sustained-release 12 hr 150 mg PO BID RF: 0 hydrocodone-acetaminophen 5-325 mg tablet 1 tab PO QID PRN (Reason: Back Pain) RF: 0 midodrine 5 mg tablet 10 mg PO DAILY RF: 0 temazepam 15 mg capsule 2 tab PO BEDTIME RF: 0 ferrous sulfate [FeroSul] 325 mg (65 mg iron) Tablet 1 tab PO BID RF: 0 Discontinued glimepiride 2 mg tablet 8 mg PO DAILY Qty: 360 RF: 3 No Action hydrocodone-acetaminophen 5-325 mg tablet 2 tab PO QID PRN (Reason: Back Pain) Qty: 240 RF: 0 Follow up/Referrals: Corby Zurita MD [Primary Care Provider] - 08/28/18 3:30 pm (please check in 15 minutes prior to your scheduled appointment) Provider Discharge Instructions Diet: Diet as Tolerated Discharge Data Primary Care Provider: Corby Zurita Attending Provider: Corby Zurita Admit Date/Time: 08/04/18 14:10 Quality VTE Deep Vein Thrombosis/Pulmonary Embolism Present on Admission: No
--- NOTE | 2018-08-08 12:34 | CM.DPC ---
DCP: continued: pt today with d/c to home per Dr. Zurita. She will follow up with Dr. Zurita in clinic: 08/27. Home as per her plan
== END 2018-08-08 10:55 | disposition home or self-care (01) | DRG 372 ==
LOC: ED 13:59 → AC 15:10
PROVIDERS: Surgery; Admitting Provider Family Medicine; Emergency Provider Emergency Medicine; PCP Family Medicine; Visit Provider Family Medicine
PROC: 0DJ08ZZ Inspection of Upper Intestinal Tract, Via Natural or Artificial Opening Endoscopic (ICD-10-PCS; CPT 43235; principal; 2018-08-05 09:45)
PROC: 0DJD8ZZ Inspection of Lower Intestinal Tract, Via Natural or Artificial Opening Endoscopic (ICD-10-PCS; CPT 45378; 2018-08-05 09:45)
DX: A04.72 Enterocolitis due to Clostridium difficile, not specified as recurrent (principal); K92.1 Melena; R42 Dizziness and giddiness; D50.9 Iron deficiency anemia, unspecified; E11.42 Type 2 diabetes mellitus with diabetic polyneuropathy; G25.81 Restless legs syndrome; F32.9 Major depressive disorder, single episode, unspecified; E03.9 Hypothyroidism, unspecified; Z79.84 Long term (current) use of oral hypoglycemic drugs; E11.649 Type 2 diabetes mellitus with hypoglycemia without coma
CPT/HCPCS: 36415; 36591; 43239; 45380; 80048; 80053; 80305; 82962; 83735; 83880; 84146; 85025; 85610; 85730; 86850; 86900; 86901; 87507; 88305; 93005; 93010; 94762; 96374; 96375; 99152; 99153; 99221; 99222; 99232; 99238; 99283; C9113; J2250; J2405; J3010

== ENCOUNTER → 2018-08-15 10:41 | Outpatient (CLI) | payer MEDICARE, OTHER, SELFPAY ==
[2018-08-04 14:39] VITALS: BMI 28.1
[2018-08-15 11:57] LABS: Add Manual Diff / Slide Review SLIDE REVIEW; Basophils Absolute Auto 0 /uL (0-100); Basophils Percent Auto 0.3 % (0-2); Eosinophils Absolute Auto 100 /uL (0-450); Eosinophils Percent Auto 0.9 % (2-4); Hematocrit 36.5 % (36-46); Hemoglobin 11.7 g/dL (12.0-16.0); Lymphocytes Absolute Auto 900 /uL (1100-4500); Lymphocytes Percent Auto 9.7 % (25-40); Mean Corpuscular HGB Conc 32.2 % (30-36); Mean Corpuscular Hemoglobin 30.3 PG (26-34); Mean Corpuscular Volume 94.1 fL (80-100); Monocytes Absolute Auto 400 /uL (0-900); Monocytes Percent Auto 4.2 % (3-14); Neutrophils Absolute Auto 7500 /uL (1500-7000); Neutrophils Percent Auto 84.9 % (50-75); Platelet Count 360 X10^3/uL (150-400); Red Blood Cell Count 3.88 X10^6/uL (4.0-5.2); Red Cell Distribution Width 21.8 % (11.6-14.8); White Blood Cell Count 8.8 X10^3/uL (4.5-11.0)
[2018-08-15 12:18] LABS: Acetaminophen < 10 ug/mL (10-30); Blood Urea Nitrogen 10 mg/dL (7-17); Carbon Dioxide 17 mmol/L (22-32); Chloride 108 mmol/L (98-107); Estimated Glomerular Filt Rate > 60.0 mL/min (>60); Glucose 78 mg/dL (80-110); HEMOLYSIS < 15 (0-50); Potassium 3.6 mmol/L (3.4-5.1); Sodium 137 mmol/L (137-145)
[2018-08-15 12:22] LABS: Anisocytosis 1+; Hypochromasia 1+; Microcytosis 1+; Poikilocytosis 1+
== END ==
PROVIDERS: PCP Family Medicine; Visit Provider Family Medicine
DX: E11.9 Type 2 diabetes mellitus without complications (principal); G89.29 Other chronic pain; M54.9 Dorsalgia, unspecified
CPT/HCPCS: 36415; 80048; 80329; 82565; 84520; 85025; G0480

== ENCOUNTER 2018-08-28 13:03 | Inpatient (IN) | payer MEDICARE, OTHER, SELFPAY ==
[2018-08-04 14:39] VITALS: BMI 28.1
[2018-08-28] VITALS (10 sets, daily range): BP systolic 94–138; BP diastolic 55–80; PULSE 63–88; RESP 10–18; TEMP 36.3–37.2; O2SAT 97–100; BMI 26.3
--- NOTE | 2018-08-28 13:04 | DI.RAD.S_ITS ---
PROCEDURE: XR CHEST 1V INDICATIONS: chest pain TECHNIQUE: One view of the chest was acquired. COMPARISON: [facility], CR, XR CHEST 1V, 01/14/2018, 14:17. FINDINGS: Surgical changes and devices: Surgical clips at the GE junction and gallbladder fossa. Lungs and pleura: Chronic right hemidiaphragm elevation. Lungs are clear. No pleural effusions or pneumothorax. Mediastinum: Mediastinal contours appear normal. Heart size is normal. Bones and chest wall: No suspicious bony lesions. Overlying soft tissues appear unremarkable. IMPRESSION: No acute cardiopulmonary disease. Dictated by: Isis Billy M.D. on 08/28/2018 at 13:46 Approved by: Isis Billy M.D. on 08/28/2018 at 13:46
[2018-08-28] MEDS: SODIUM CHLORIDE 0.9% 1,000 ML 1000 ML IV (13:35)
[2018-08-28] MEDS: ONDANSETRON 4 MG/2 ML INJ IV ×3 (13:35→22:00)
[2018-08-28] MEDS: MAGNESIUM SULFATE 2 GM, FOLIC ACID 1 MG, THIAMINE 100 MG, MULTIVITAMIN 10 ML in SODIUM ... IV (13:44)
[2018-08-28 14:07] LABS: Basophils Absolute Auto 0 /uL (0-100); Basophils Percent Auto 0.8 % (0-2); Eosinophils Absolute Auto 0 /uL (0-450); Eosinophils Percent Auto 0.7 % (2-4); Hematocrit 31.2 % (36-46); Hemoglobin 10.4 g/dL (12.0-16.0); Lymphocytes Absolute Auto 800 /uL (1100-4500); Mean Corpuscular HGB Conc 33.2 % (30-36); Mean Corpuscular Hemoglobin 30.8 PG (26-34); Mean Corpuscular Volume 92.8 fL (80-100); Monocytes Absolute Auto 500 /uL (0-900); Monocytes Percent Auto 8.4 % (3-14); Neutrophils Absolute Auto 4600 /uL (1500-7000); Neutrophils Percent Auto 77.1 % (50-75); Platelet Count 386 X10^3/uL (150-400); Red Blood Cell Count 3.36 X10^6/uL (4.0-5.2); Red Cell Distribution Width 18.2 % (11.6-14.8)
[2018-08-28 14:09] LABS: Add Manual Diff / Slide Review SLIDE REVIEW
[2018-08-28 14:14] LABS: Alanine Aminotransferase 7 IU/L (9-52); Albumin 2.8 g/dL (3.5-5.0); Alkaline Phosphatase 88 U/L (38-126); Aspartate Aminotransferase 10 IU/L (14-36); Bilirubin Total 0.6 mg/dL (0.2-1.3); Blood Urea Nitrogen 8 mg/dL (7-17); Calcium 8.8 mg/dL (8.4-10.2); Carbon Dioxide 12 mmol/L (22-32); Chloride 109 mmol/L (98-107); Creatine Kinase < 20 U/L (30-135); Estimated Glomerular Filt Rate > 60.0 mL/min (>60); Globulin 2.9 g/dL (1.7-4.1); Glucose 87 mg/dL (80-110); HEMOLYSIS < 15 (0-50); Lipase 287 U/L (23-300); Potassium 4.4 mmol/L (3.4-5.1); Sodium 133 mmol/L (137-145); Total Protein 5.7 g/dL (6.3-8.2)
[2018-08-28 14:15] LABS: INR 1.1 (0.9-1.3); Prothrombin Time 12.3 SECONDS (10.1-12.7)
[2018-08-28 14:17] LABS: PTT Partial Thromboplastin Tim 31 SECONDS (26.4-36.2)
[2018-08-28 14:17] LABS: RBC Urine None Seen (0-5/HPF)
[2018-08-28 14:19] LABS: Appearance Urine UA CLOUDY; Bilirubin Urine UA NEGATIVE (NEGATIVE); Color Urine UA YELLOW; Glucose Urine UA NEGATIVE (Negative); Ketones Urine UA 2+ (NEGATIVE); Leukocyte Esterase Urine UA 1+ (NEGATIVE); Nitrite Urine UA NEGATIVE (Negative); Occult Blood Urine UA NEGATIVE (Negative); Protein Urine UA TRACE (Negative); Specific Gravity Urine UA 1.025 (1.000-1.035); Urobilinogen Urine UA 0.2 E.U./dL (0.2)
--- NOTE | 2018-08-28 14:22 | ED.NAVMDI ---
HPI - Nausea/Vomiting/Diarrhea General Chief complaint: Nausea/Vomiting/Diarrhea Stated complaint: Not eating, weak, sob, dizzy Time Seen by Provider: 08/28/18 13:10 Source: patient, family, EMS and other (Primary doctor) Mode of arrival: ambulatory Limitations: no limitations History of Present Illness HPI Narrative: Patient comes emergency department via EMS after being sent by her primary care physician who is concerned about her ongoing vomiting and diarrhea. Patient states that she has been having trouble with the vomiting and diarrhea for the last 2 months but that the last week, she has not been able to hold any solids down. She states she feels weak, and that she is having difficulty walking because of it. Patient was admitted at [facility] for this about a month and was worked up by GI with endoscopy, and no specific diagnosis was found, according to patient. Patient's symptoms have continued since, and she has been followed by Dr. Zurita, her primary care physician, for this. Patient denies fevers or chills. She states her abdomen is sore from vomiting, but denies any pain otherwise. Patient denies any history of anxiety or depression, though Dr. Zuleta feels that this may be an issue in her ongoing digestive issues. Patient has no known history of Crohn's disease, ulcerative colitis, or any other chronic GI illness. No hematemesis, hematochezia, or melena. She denies any dysuria or back pain. no other complaints at this time. Related Data Home Medications Medication Instructions Recorded Confirmed Diabetic Shoes 1 pkg MISCELLANEOUS DIRECTED 01/14/18 08/28/18 Walker: Four Wheel 1 u MISCELLANEOUS DIRECTED 01/14/18 08/28/18 bupropion HCl 150 mg PO BID 03/05/18 08/28/18 carbidopa ER 50 mg-levodopa 200 mg 1 tab PO 5XD PRN tab 06/04/18 08/28/18 tablet,extended release ferrous sulfate [FeroSul] 1 tab PO BID 08/04/18 08/28/18 midodrine 5 mg PO BID 08/04/18 08/28/18 temazepam 15 mg PO BEDTIME PRN 08/04/18 08/28/18 aspirin 81 mg PO DAILY 08/28/18 08/28/18 [id number] 1 tab PO PRN PRN 08/28/18 08/28/18 gabapentin 600 - 1,200 mg PO TID 08/28/18 08/28/18 hydrocodone-acetaminophen 1 - 2 tab PO QID PRN 08/28/18 08/28/18 lovastatin 5 mg PO Q OTHER DAY 08/28/18 08/28/18 Previous Rx's Medication Instructions Recorded citalopram 20 mg tablet 40 mg PO DAILY #60 tab 07/04/18 levothyroxine 175 mcg tablet 175 mcg PO DAILY #90 tab 07/22/18 megestrol 400 mg/10 mL (10 mL) 800 mg PO DAILY #400 ml 08/19/18 oral suspension blood sugar diagnostic strips #100 each 08/27/18 blood-glucose meter kit #1 each 08/27/18 lancets #100 each 08/27/18 Allergies Allergy/AdvReac Type Severity Reaction Status Date / Time amoxicillin [From AUGMENTIN] Allergy Mild RASH Verified 08/15/18 10:06 clavulanic acid Allergy Mild RASH Verified 08/15/18 10:06 [From AUGMENTIN] metformin [METFORMIN] AdvReac Severe SWELLING Verified 08/15/18 10:06 Review of Systems Constitutional Denies chills, Denies fever(s), Denies lethargy and Reports weakness Eyes Denies change in vision, Denies eye discharge, Denies irritation and Denies loss of vision ENT Ears, Nose, Mouth, and Throat: Denies change in voice, Denies neck pain and Denies sore throat Cardiovascular Denies chest pain, Denies irregular heart rhythm, Denies lightheadedness, Denies palpitations, Denies dyspnea, Denies dyspnea on exertion and Denies orthopnea Respiratory Denies cough, Denies dyspnea, Denies dyspnea on exertion and Denies wheezing Gastrointestinal Gastrointestinal: Denies abdominal pain, Denies change in bowel habits, Reports diarrhea, Reports nausea and Reports vomiting Genitourinary Denies hematuria, Denies flank pain, Denies urinary incontinence and Denies urinary urgency Musculoskeletal Denies neck pain Integumentary/Breasts Denies pruritus, Denies erythema, Denies rash and Denies wounds Neurologic Denies confusion, Denies loss of vision and Reports weakness Psychiatric Denies anxiety, Denies confusion, Denies depression, Denies homicidal ideation and Denies suicidal ideation Endocrine Denies palpitations Hematologic/Lymphatic Denies easy bruising Allergic/Immunologic Denies wheezing PFSH Medical History Chronic back pain (Chronic ~2009) Neuropathy (Chronic ~2008) Headache (Chronic ~1989) Migraines (Chronic ~1989) Restless leg syndrome (Chronic ~1989) Lupus (Chronic ~1999) Arthritis (Chronic) Anemia (Chronic ~2004) Foot pain (Chronic ~2010) Fractures (Chronic ~2011) Gastric ulcer (Chronic ~1991) History of irregular menstrual cycles (Chronic ~1989) Hyperthyroidism (Chronic ~2004) Ovarian cyst (Chronic ~1999) Painful menstrual periods (Chronic ~1978) Chicken pox (Resolved) Measles (Resolved) Mumps (Resolved) Surgical History Gastric bypass status for obesity (Acute) H/O hernia repair (Acute) S/P foot surgery, right (Acute) Hx of resection of stomach (Resolved) Family History Grandfather No problems noted. Grandmother No problems noted. Mother No problems noted. Son Diabetes mellitus Social History marital status: household members: spouse Smoking Status: Never smoker alcohol intake: never substance use type: does not use Family History Grandfather No problems noted. Grandmother No problems noted. Mother No problems noted. Son Diabetes mellitus Social History marital status: household members: spouse Smoking Status: Never smoker alcohol intake: never substance use type: does not use Exam Initial Vital Signs Initial Vital Signs: Vital Signs Pulse Rate 78 08/28/18 13:09 Respiratory Rate 15 08/28/18 13:09 Blood Pressure 125/74 08/28/18 13:09 Pulse Oximetry 100 08/28/18 13:09 Const General: cooperative and well developed Nutritional Appearance: well nourished Orientation: alert, awake, oriented x3 and not confused HENMT Head: normocephalic and atraumatic Ears: external ears normal Nose: external nose normal and No nasal discharge Face and sinus: face symmetric and No dry mucous membranes Mouth: oral mucosae normal and moist mucous membranes Teeth and gingiva: dentition normal Eyes General: appearance normal, both eyes and all related structures Eyelids: eyelids normal Conjunctivae: conjunctivae normal Sclera: sclerae normal Pupils: PERRL EOM: EOM intact bilaterally Neck Neck: normal visual inspection, trachea midline, No lymphadenopathy, No midline deformity and No JVD Lymphatic: No lymphedema Chest Chest: normal inspection of the chest Resp Effort & Inspection: normal respiratory effort, able to speak in complete sentences, no respiratory distress and no use of accessory muscles Auscultation: clear to auscultation bilaterally, no rales, no rhonchi and no wheezes Cardio Rate: regular rate Rhythm: regular rhythm Heart Sounds: no click, no gallops, no murmurs and no rubs Pulses: normal peripheral pulses GI Inspection: non-distended Palpation: soft, no hepatosplenomegaly, No guarding, No pulsatile mass and tender (Mild, generalized.) Auscultation: normal bowel sounds Back/Spine/Pelvis Back: No CVA tenderness Cervical Spine: cervical ROM normal and No pain with cervical ROM Thoracic/Lumbar Spine: thoracic and lumbar spine normal to inspection Skin General: no rashes or lesions noted, No jaundice and No petechiae Neuro General: alert, oriented x3, gait normal and no focal motor deficits Speech: speech normal Extrem General: full ROM, no clubbing, cyanosis or edema, no pedal edema and no calf tenderness Psych Appearance: well kempt Mental Status: mental status grossly normal Attitude: cooperative Thought Content: normal and suicidality Judgment: judgment good Course Course Narrative: Patient was worked up with labs, EKG, and given banana bag and normal saline boluses. I reviewed extensive records from [place], and found the patient had been fully worked up by GI, with multiple specialists tests performed, with the exception of EGD, which had been done here, an entire workup between here and there was negative. The patient had been able to tolerate p.o. under the guidance of a dietitian at the hospital. I did also review the patient's medication list and found that she was not recorded to be on any antiemetics at home. I verified this with the patient, who stated she had previously been on antibiotics, but ran out and had no refills. She did not ask her doctor for any further medication for this. Patient had been given Zofran in the emergency department, and actually, was able to tolerate some Ensure here. However, the patient was extremely weak and could barely get out of bed, and I felt that she should come into the hospital for further nutritional management and IV fluids, as well as antiemetics. I did speak with Dr. Zurita, the patient's primary care physician and informed him that the patient would be stain. She has been accepted by Dr. Chavez, our hospitalist, for admission, after my conversation with him. Orders Ordered: ED Orders 08/30/18 04:20 Sodium Urine Random Routine 08/30/18 08:25 Basic Metabolic Panel Routine Complete Blood Count AUTO DIFF Routine Magnesium Stat Phosphorous Routine 08/30/18 10:03 Consult to Occupational Therapy Evaluate & Treat Consult to Physical Therapy Evaluate & Treat Acetaminophen (Tylenol) 975 mg PO Q8H PRN PRN Reason: As Needed for Fever/Mild Pain Aspirin (Aspirin Ec) 81 mg PO DAILY [facility] Last Admin: 08/30/18 08:33 Dose: 81 mg Admin: 08/29/18 10:00 Dose: 81 mg Bupropion HCl (Wellbutrin Sr) 150 mg PO BID [facility] Last Admin: 08/30/18 08:33 Dose: 150 mg Admin: 08/29/18 20:05 Dose: 150 mg Admin: 08/29/18 09:59 Dose: 150 mg Admin: 08/28/18 21:02 Dose: 150 mg Carbidopa/Levodopa (Sinemet Er 50-200 Tab) 1 each PO 5XD PRN PRN Reason: restless legs Last Admin: 08/29/18 20:06 Dose: 1 each Admin: 08/28/18 21:05 Dose: 1 each Admin: 08/28/18 21:02 Dose: 1 each Citalopram Hydrobromide (Celexa) 40 mg PO DAILY [facility] Last Admin: 08/30/18 08:34 Dose: 40 mg Admin: 08/29/18 10:00 Dose: 40 mg Enoxaparin Sodium (Lovenox) 40 mg SUBCUT DAILY [facility] Last Admin: 08/30/18 08:34 Dose: 40 mg Admin: 08/29/18 10:00 Dose: 40 mg Ferrous Sulfate (Ferrous Sulfate) 325 mg PO BID [facility] Last Admin: 08/30/18 08:33 Dose: 325 mg Admin: 08/29/18 20:05 Dose: 325 mg Admin: 08/29/18 09:59 Dose: 325 mg Admin: 08/28/18 21:02 Dose: 325 mg Gabapentin (Neurontin) 600 mg PO TID [facility] Last Admin: 08/30/18 08:34 Dose: 600 mg Admin: 08/29/18 20:06 Dose: 600 mg Admin: 08/29/18 14:36 Dose: 600 mg Admin: 08/29/18 09:59 Dose: 600 mg Admin: 08/28/18 21:02 Dose: 600 mg Levofloxacin (Levaquin) 250 mg in 50 mls @ 50 mls/hr IV Q24H [facility] Last Infusion: 08/30/18 00:44 Dose: 0 mls/hr Admin: 08/29/18 15:39 Dose: 50 mls/hr Sodium Bicarbonate 100 meq/ (Dextrose) 1,100 mls @ 150 mls/hr IV CONT [facility] Last Admin: 08/30/18 12:08 Dose: 150 mls/hr Infusion: 08/30/18 11:44 Dose: 150 mls/hr Admin: 08/30/18 04:24 Dose: 150 mls/hr Infusion: 08/29/18 20:22 Dose: 150 mls/hr Admin: 08/29/18 13:02 Dose: 150 mls/hr Levothyroxine Sodium (Synthroid) 100 mcg PO 0600 [facility] Last Admin: 08/30/18 05:36 Dose: 100 mcg Admin: 08/29/18 06:22 Dose: 100 mcg Levothyroxine Sodium (Synthroid) 75 mcg PO 0600 [facility] Last Admin: 08/30/18 05:36 Dose: 75 mcg Admin: 08/29/18 06:22 Dose: 75 mcg Lovastatin (Mevacor) 5 mg PO Q48H [facility] Last Admin: 08/30/18 08:34 Dose: 5 mg Magnesium Hydroxide (Milk Of Magnesia) 30 ml PO DAILY PRN PRN Reason: Constipation Megestrol Acetate (Megace Susp) 800 mg PO DAILY [facility] Last Admin: 08/30/18 08:34 Dose: Not Given Admin: 08/29/18 10:02 Dose: Not Given Midodrine (Midodrine) 5 mg PO BID [facility] Last Admin: 08/30/18 08:34 Dose: 5 mg Admin: 08/29/18 20:06 Dose: 5 mg Admin: 08/29/18 09:59 Dose: 5 mg Admin: 08/28/18 21:03 Dose: 5 mg Ondansetron HCl (Zofran) 4 mg IV Q4HR PRN PRN Reason: Nausea And Vomiting Last Admin: 08/29/18 07:50 Dose: 4 mg Admin: 08/28/18 22:00 Dose: 4 mg Admin: 08/28/18 17:38 Dose: 4 mg Oxycodone HCl (Percolone) 5 mg PO Q6H PRN PRN Reason: Pain, Moderate (4-6) Last Admin: 08/30/18 08:41 Dose: 5 mg Admin: 08/30/18 00:48 Dose: 5 mg Potassium Chloride (Klor-Con M20) 40 meq PO Q4H [facility] Stop: 08/30/18 14:46 Last Admin: 08/30/18 10:40 Dose: 40 meq Discontinued Medications Acetaminophen (Tylenol) 650 mg PO Q6HR PRN PRN Reason: As Needed for Fever/Mild Pain Hydrocodone Bitart/Acetaminophen ([place] 5/325) 1 tab PO QID PRN PRN Reason: BACK PAIN Hydrocodone Bitart/Acetaminophen ([place] 5/325) 2 tab PO QID PRN PRN Reason: BACK PAIN Last Admin: 08/29/18 20:00 Dose: 2 tab Admin: 08/29/18 13:04 Dose: 2 tab Admin: 08/29/18 07:50 Dose: 2 tab Admin: 08/29/18 03:30 Dose: 2 tab Admin: 08/28/18 21:59 Dose: 2 tab Admin: 08/28/18 18:05 Dose: 2 tab Magnesium Sulfate 2 gm/ Folic Acid 1 mg/ Thiamine HCl 100 mg / Multivitamins 10 ml/ Sodium Chloride 1,015.2 mls @ 1,000 mls/hr IV NOW ONE Stop: 08/28/18 14:14 Last Infusion: 08/28/18 15:08 Dose: 0 mls/hr Admin: 08/28/18 13:44 Dose: 1,000 mls/hr Sodium Chloride (Normal Saline 0.9%) 1,000 mls @ 1,000 mls/hr IV BOLUS ONE Stop: 08/28/18 14:13 Last Infusion: 08/28/18 23:13 Dose: 0 mls/hr Infusion: 08/28/18 15:09 Dose: 125 mls/hr Infusion: 08/28/18 13:44 Dose: 0 mls/hr Admin: 08/28/18 13:35 Dose: 1,000 mls/hr Sodium Chloride (Normal Saline 0.9%) 1,000 mls @ 1,000 mls/hr IV BOLUS ONE Stop: 08/28/18 15:13 Last Admin: 08/28/18 14:17 Dose: Not Given Levofloxacin (Levaquin) 500 mg in 100 mls @ 100 mls/hr IV NOW ONE Stop: 08/28/18 16:53 Last Infusion: 08/28/18 23:13 Dose: 0 mls/hr Admin: 08/28/18 16:21 Dose: 100 mls/hr Dextrose/Sodium Chloride (Dextrose 5%-0.45% Ns) 1,000 mls @ 150 mls/hr IV CONT [facility] Last Infusion: 08/29/18 11:04 Dose: 150 mls/hr Admin: 08/29/18 03:34 Dose: 100 mls/hr Infusion: 08/29/18 03:34 Dose: 100 mls/hr Admin: 08/28/18 17:38 Dose: 100 mls/hr Ondansetron HCl (Zofran) 4 mg IV NOW ONE Stop: 08/28/18 13:15 Last Admin: 08/28/18 13:35 Dose: 4 mg Temazepam (Resoril) 15 mg PO BEDTIME PRN PRN Reason: Sleep Last Admin: 08/28/18 21:05 Dose: 15 mg Vital Signs - 8 hr 08/30/18 04:38 08/30/18 07:55 08/30/18 09:16 Temperature 97.6 F 97.1 F L Pulse Rate 62 78 Respiratory Rate 16 18 Blood Pressure 115/64 109/61 Pulse Oximetry 100 100 98 MDM - Nausea/Vomiting/Diarrhea Medical Records Attestation: I reviewed the patient's medical records. Lab Data Attestation: I reviewed the patient's lab results. Result diagrams: 08/30/18 08:25 08/30/18 08:25 Lab Results 08/28/18 08/28/18 08/28/18 Range/Units 13:50 13:50 13:50 WBC 6.0 (4.5-11.0) X10^3/uL RBC 3.36 L (4.0-5.2) X10^6/uL Hgb 10.4 L (12.0-16.0) g/dL Hct 31.2 L (36-46) % MCV 92.8 (80-100) fL MCH 30.8 (26-34) PG MCHC 33.2 (30-36) % RDW 18.2 H (11.6-14.8) % Plt Count 386 (150-400) X10^3/uL Neut % (Auto) 77.1 H (50-75) % Lymph % (Auto) 13.0 L (25-40) % Frederick % (Auto) 8.4 (3-14) % Eos % (Auto) 0.7 L (2-4) % Baso % (Auto) 0.8 (0-2) % Neut # (Auto) 4600 (9626-2247) /uL Lymph # (Auto) 800 L (3903-4944) /uL Frederick # (Auto) 500 (0-900) /uL Eos # (Auto) 0 (0-450) /uL Baso # (Auto) 0 (0-100) /uL Seg Neutrophils % (38-70) % Lymphocytes % (Manual) (25-45) % Atypical Lymphs % ( - 0) % Monocytes % (Manual) (2-11) % Eosinophils % (Manual) (2-4) % RBC Morphology See below Hypochromasia Poikilocytosis 1+ H Anisocytosis 1+ H Schistocytes 1+ H PT 12.3 (10.1-12.7) SECONDS INR 1.1 (0.9-1.3) APTT 31 (26.4-36.2) SECONDS ABG pH (7.35-7.45) ABG pCO2 (35-45) mmHg ABG pO2 (80-100) mmHg ABG HCO3 (22-26) mmol/L ABG Total CO2 (21-31) mmol/L ABG O2 Saturation (95-100) % ABG Base Excess (-2-2) mmol/L FiO2 Sodium 133 L (137-145) mmol/L Potassium 4.4 (3.4-5.1) mmol/L Chloride 109 H (98-107) mmol/L Carbon Dioxide 12 L (22-32) mmol/L BUN 8 (7-17) mg/dL Creatinine 0.50 L (0.52-1.04) mg/dL Estimated GFR > 60.0 (>60) mL/min BUN/Creatinine Ratio 16.0 (6-22) Glucose 87 (80-110) mg/dL Calcium 8.8 (8.4-10.2) mg/dL Phosphorus (2.8-4.1) mg/dL Magnesium (1.6-2.3) mg/dL Total Bilirubin 0.6 (0.2-1.3) mg/dL AST 10 L (14-36) IU/L ALT 7 L (9-52) IU/L Alkaline Phosphatase 88 (38-126) U/L Total Creatine Kinase < 20 L (30-135) U/L CK-MB (CK-2) TNP CK-MB (CK-2) Rel Index TNP Troponin I < 0.012 (0.01-0.034) ng/mL Total Protein 5.7 L (6.3-8.2) g/dL Albumin 2.8 L (3.5-5.0) g/dL Globulin 2.9 (1.7-4.1) g/dL Albumin/Globulin Ratio 1.0 (1.0-2.8) Lipase 287 (23-300) U/L TSH (0.47-4.68) uIU/mL Free T4 (0.78-2.19) ng/dL Urine Color Urine Appearance Urine pH (4.5-8.0) Ur Specific [place] (1.000-1.035) Urine Protein (Negative) Urine Glucose (UA) (Negative) g/dL Urine Ketones (NEGATIVE) Urine Occult Blood (Negative) Urine Nitrate (Negative) Urine Bilirubin (NEGATIVE) Urine Urobilinogen (0.2) E.U./dL Ur Leukocyte Esterase (NEGATIVE) Urine RBC (0-5/HPF) Urine WBC (0-5/HPF) Ur Squamous Epith Cells (0-5/HPF) Ur Transition Epith Cell (0-5/HPF) Calcium Oxalate Crystal Urine Bacteria (None) Hyaline Casts (None) Ur Culture Indicated? Ur Random Sodium (30-90) mmol/L Blood Type Antibody Screen 0508/28/18 08/28/18 Range/Units 13:50 13:50 14:06 WBC (4.5-11.0) X10^3/uL RBC (4.0-5.2) X10^6/uL Hgb (12.0-16.0) g/dL Hct (36-46) % MCV (80-100) fL MCH (26-34) PG MCHC (30-36) % RDW (11.6-14.8) % Plt Count (150-400) X10^3/uL Neut % (Auto) (50-75) % Lymph % (Auto) (25-40) % Frederick % (Auto) (3-14) % Eos % (Auto) (2-4) % Baso % (Auto) (0-2) % Neut # (Auto) (2225-8391) /uL Lymph # (Auto) (2454-4208) /uL Frederick # (Auto) (0-900) /uL Eos # (Auto) (0-450) /uL Baso # (Auto) (0-100) /uL Seg Neutrophils % (38-70) % Lymphocytes % (Manual) (25-45) % Atypical Lymphs % ( - 0) % Monocytes % (Manual) (2-11) % Eosinophils % (Manual) (2-4) % RBC Morphology Hypochromasia Poikilocytosis Anisocytosis Schistocytes PT (10.1-12.7) SECONDS INR (0.9-1.3) APTT (26.4-36.2) SECONDS ABG pH (7.35-7.45) ABG pCO2 (35-45) mmHg ABG pO2 (80-100) mmHg ABG HCO3 (22-26) mmol/L ABG Total CO2 (21-31) mmol/L ABG O2 Saturation (95-100) % ABG Base Excess (-2-2) mmol/L FiO2 Sodium (137-145) mmol/L Potassium (3.4-5.1) mmol/L Chloride (98-107) mmol/L Carbon Dioxide (22-32) mmol/L BUN (7-17) mg/dL Creatinine (0.52-1.04) mg/dL Estimated GFR (>60) mL/min BUN/Creatinine Ratio (6-22) Glucose (80-110) mg/dL Calcium (8.4-10.2) mg/dL Phosphorus (2.8-4.1) mg/dL Magnesium (1.6-2.3) mg/dL Total Bilirubin (0.2-1.3) mg/dL AST (14-36) IU/L ALT (9-52) IU/L Alkaline Phosphatase (38-126) U/L Total Creatine Kinase (30-135) U/L CK-MB (CK-2) CK-MB (CK-2) Rel Index Troponin I (0.01-0.034) ng/mL Total Protein (6.3-8.2) g/dL Albumin (3.5-5.0) g/dL Globulin (1.7-4.1) g/dL Albumin/Globulin Ratio (1.0-2.8) Lipase (23-300) U/L TSH 10.20 H (0.47-4.68) uIU/mL Free T4 1.15 (0.78-2.19) ng/dL Urine Color Yellow Urine Appearance Cloudy Urine pH 5.0 (4.5-8.0) Ur Specific [place] 1.025 (1.000-1.035) Urine Protein Trace H (Negative) Urine Glucose (UA) Negative (Negative) g/dL Urine Ketones 2+ H (NEGATIVE) Urine Occult Blood Negative (Negative) Urine Nitrate Negative (Negative) Urine Bilirubin Negative (NEGATIVE) Urine Urobilinogen 0.2 (0.2) E.U./dL Ur Leukocyte Esterase 1+ H (NEGATIVE) Urine RBC None seen (0-5/HPF) Urine WBC 10-30/hpf H (0-5/HPF) Ur Squamous Epith Cells 0-1 /hpf (0-5/HPF) Ur Transition Epith Cell 0-1/hpf (0-5/HPF) Calcium Oxalate Crystal Few H Urine Bacteria Many (>30) H (None) Hyaline Casts 0-1/lpf (None) Ur Culture Indicated? Specimen cultured Ur Random Sodium (30-90) mmol/L Blood Type A Negative Antibody Screen Negative 08/29/18 08/29/18 08/29/18 Range/Units 05:22 07:15 10:22 WBC 9.2 D (4.5-11.0) X10^3/uL RBC 3.54 L (4.0-5.2) X10^6/uL Hgb 10.7 L (12.0-16.0) g/dL Hct 33.0 L (36-46) % MCV 93.1 (80-100) fL MCH 30.1 (26-34) PG MCHC 32.4 (30-36) % RDW 18.0 H (11.6-14.8) % Plt Count 266 (150-400) X10^3/uL Neut % (Auto) Not Reportable (50-75) % Lymph % (Auto) Not Reportable (25-40) % [place] % (Auto) Not Reportable (3-14) % Eos % (Auto) Not Reportable (2-4) % Baso % (Auto) Not Reportable (0-2) % Neut # (Auto) (5083-1426) /uL Lymph # (Auto) Not Reportable (3735-5524) /uL Frederick # (Auto) Not Reportable (0-900) /uL Eos # (Auto) (0-450) /uL Baso # (Auto) Not Reportable (0-100) /uL Seg Neutrophils % 56.0 (38-70) % Lymphocytes % (Manual) 30.0 (25-45) % Atypical Lymphs % 10.0 H ( - 0) % Monocytes % (Manual) 2.0 (2-11) % Eosinophils % (Manual) 2.0 (2-4) % RBC Morphology See below Hypochromasia Poikilocytosis Anisocytosis 2+ H Schistocytes PT (10.1-12.7) SECONDS INR (0.9-1.3) APTT (26.4-36.2) SECONDS ABG pH 7.33 L (7.35-7.45) ABG pCO2 18.0 L* (35-45) mmHg ABG pO2 115 H (80-100) mmHg ABG HCO3 10 L (22-26) mmol/L ABG Total CO2 10 L (21-31) mmol/L ABG O2 Saturation 98 (95-100) % ABG Base Excess -16.0 L (-2-2) mmol/L FiO2 21 Sodium 136 L (137-145) mmol/L Potassium 3.9 (3.4-5.1) mmol/L Chloride 115 H (98-107) mmol/L Carbon Dioxide 11 L (22-32) mmol/L BUN 9 (7-17) mg/dL Creatinine 0.50 L (0.52-1.04) mg/dL Estimated GFR > 60.0 (>60) mL/min BUN/Creatinine Ratio 18.0 (6-22) Glucose 118 H (80-110) mg/dL Calcium 8.9 (8.4-10.2) mg/dL Phosphorus (2.8-4.1) mg/dL Magnesium (1.6-2.3) mg/dL Total Bilirubin (0.2-1.3) mg/dL AST (14-36) IU/L ALT (9-52) IU/L Alkaline Phosphatase (38-126) U/L Total Creatine Kinase (30-135) U/L CK-MB (CK-2) CK-MB (CK-2) Rel Index Troponin I (0.01-0.034) ng/mL Total Protein (6.3-8.2) g/dL Albumin (3.5-5.0) g/dL Globulin (1.7-4.1) g/dL Albumin/Globulin Ratio (1.0-2.8) Lipase (23-300) U/L TSH (0.47-4.68) uIU/mL Free T4 (0.78-2.19) ng/dL Urine Color Urine Appearance Urine pH (4.5-8.0) Ur Specific [place] (1.000-1.035) Urine Protein (Negative) Urine Glucose (UA) (Negative) g/dL Urine Ketones (NEGATIVE) Urine Occult Blood (Negative) Urine Nitrate (Negative) Urine Bilirubin (NEGATIVE) Urine Urobilinogen (0.2) E.U./dL Ur Leukocyte Esterase (NEGATIVE) Urine RBC (0-5/HPF) Urine WBC (0-5/HPF) Ur Squamous Epith Cells (0-5/HPF) Ur Transition Epith Cell (0-5/HPF) Calcium Oxalate Crystal Urine Bacteria (None) Hyaline Casts (None) Ur Culture Indicated? Ur Random Sodium (30-90) mmol/L Blood Type Antibody Screen 08/29/18 08/30/18 08/30/18 Range/Units 11:58 04:20 08:25 WBC 5.7 (4.5-11.0) X10^3/uL RBC 3.32 L (4.0-5.2) X10^6/uL Hgb 10.3 L (12.0-16.0) g/dL Hct 30.6 L (36-46) % MCV 92.3 (80-100) fL MCH 31.0 (26-34) PG MCHC 33.6 (30-36) % RDW 17.8 H (11.6-14.8) % Plt Count 259 (150-400) X10^3/uL Neut % (Auto) 52.5 D (50-75) % Lymph % (Auto) 33.8 D (25-40) % [place] % (Auto) 8.7 (3-14) % Eos % (Auto) 4.2 H (2-4) % Baso % (Auto) 0.8 (0-2) % Neut # (Auto) 3000 (2301-9605) /uL Lymph # (Auto) 1900 (3247-7135) /uL [place] # (Auto) 500 (0-900) /uL Eos # (Auto) 200 (0-450) /uL Baso # (Auto) 0 (0-100) /uL Seg Neutrophils % (38-70) % Lymphocytes % (Manual) (25-45) % Atypical Lymphs % ( - 0) % Monocytes % (Manual) (2-11) % Eosinophils % (Manual) (2-4) % RBC Morphology See below Hypochromasia 1+ H Poikilocytosis 1+ H Anisocytosis Schistocytes PT (10.1-12.7) SECONDS INR (0.9-1.3) APTT (26.4-36.2) SECONDS ABG pH (7.35-7.45) ABG pCO2 (35-45) mmHg ABG pO2 (80-100) mmHg ABG HCO3 (22-26) mmol/L ABG Total CO2 (21-31) mmol/L ABG O2 Saturation (95-100) % ABG Base Excess (-2-2) mmol/L FiO2 Sodium (137-145) mmol/L Potassium (3.4-5.1) mmol/L Chloride (98-107) mmol/L Carbon Dioxide (22-32) mmol/L BUN (7-17) mg/dL Creatinine (0.52-1.04) mg/dL Estimated GFR (>60) mL/min BUN/Creatinine Ratio (6-22) Glucose (80-110) mg/dL Calcium (8.4-10.2) mg/dL Phosphorus (2.8-4.1) mg/dL Magnesium (1.6-2.3) mg/dL Total Bilirubin (0.2-1.3) mg/dL AST (14-36) IU/L ALT (9-52) IU/L Alkaline Phosphatase (38-126) U/L Total Creatine Kinase (30-135) U/L CK-MB (CK-2) CK-MB (CK-2) Rel Index Troponin I (0.01-0.034) ng/mL Total Protein (6.3-8.2) g/dL Albumin (3.5-5.0) g/dL Globulin (1.7-4.1) g/dL Albumin/Globulin Ratio (1.0-2.8) Lipase (23-300) U/L TSH (0.47-4.68) uIU/mL Free T4 (0.78-2.19) ng/dL Urine Color Yellow Urine Appearance Clear Urine pH 5.5 (4.5-8.0) Ur Specific [place] 1.020 (1.000-1.035) Urine Protein Negative (Negative) Urine Glucose (UA) Negative (Negative) g/dL Urine Ketones Negative (NEGATIVE) Urine Occult Blood Negative (Negative) Urine Nitrate Negative (Negative) Urine Bilirubin Negative (NEGATIVE) Urine Urobilinogen 0.2 (0.2) E.U./dL Ur Leukocyte Esterase 1+ H (NEGATIVE) Urine RBC None seen (0-5/HPF) Urine WBC 5-10/hpf H (0-5/HPF) Ur Squamous Epith Cells 1-5 /hpf (0-5/HPF) Ur Transition Epith Cell (0-5/HPF) Calcium Oxalate Crystal Urine Bacteria None seen (None) Hyaline Casts (None) Ur Culture Indicated? Culture not indicate Ur Random Sodium 15 L (30-90) mmol/L Blood Type Antibody Screen 08/30/18 08/30/18 08/30/18 Range/Units 08:25 08:25 08:25 WBC (4.5-11.0) X10^3/uL RBC (4.0-5.2) X10^6/uL Hgb (12.0-16.0) g/dL Hct (36-46) % MCV (80-100) fL MCH (26-34) PG MCHC (30-36) % RDW (11.6-14.8) % Plt Count (150-400) X10^3/uL Neut % (Auto) (50-75) % Lymph % (Auto) (25-40) % [place] % (Auto) (3-14) % Eos % (Auto) (2-4) % Baso % (Auto) (0-2) % Neut # (Auto) (9984-5291) /uL Lymph # (Auto) (5292-0119) /uL Frederick # (Auto) (0-900) /uL Eos # (Auto) (0-450) /uL Baso # (Auto) (0-100) /uL Seg Neutrophils % (38-70) % Lymphocytes % (Manual) (25-45) % Atypical Lymphs % ( - 0) % Monocytes % (Manual) (2-11) % Eosinophils % (Manual) (2-4) % RBC Morphology Hypochromasia Poikilocytosis Anisocytosis Schistocytes PT (10.1-12.7) SECONDS INR (0.9-1.3) APTT (26.4-36.2) SECONDS ABG pH (7.35-7.45) ABG pCO2 (35-45) mmHg ABG pO2 (80-100) mmHg ABG HCO3 (22-26) mmol/L ABG Total CO2 (21-31) mmol/L ABG O2 Saturation (95-100) % ABG Base Excess (-2-2) mmol/L FiO2 Sodium 138 (137-145) mmol/L Potassium 2.8 L (3.4-5.1) mmol/L Chloride 106 (98-107) mmol/L Carbon Dioxide 20 L (22-32) mmol/L BUN 6 L (7-17) mg/dL Creatinine 0.50 L (0.52-1.04) mg/dL Estimated GFR > 60.0 (>60) mL/min BUN/Creatinine Ratio 12.0 (6-22) Glucose 106 (80-110) mg/dL Calcium 8.4 (8.4-10.2) mg/dL Phosphorus 2.8 (2.8-4.1) mg/dL Magnesium 1.8 (1.6-2.3) mg/dL Total Bilirubin (0.2-1.3) mg/dL AST (14-36) IU/L ALT (9-52) IU/L Alkaline Phosphatase (38-126) U/L Total Creatine Kinase (30-135) U/L CK-MB (CK-2) CK-MB (CK-2) Rel Index Troponin I (0.01-0.034) ng/mL Total Protein (6.3-8.2) g/dL Albumin (3.5-5.0) g/dL Globulin (1.7-4.1) g/dL Albumin/Globulin Ratio (1.0-2.8) Lipase (23-300) U/L TSH (0.47-4.68) uIU/mL Free T4 (0.78-2.19) ng/dL Urine Color Urine Appearance Urine pH (4.5-8.0) Ur Specific [place] (1.000-1.035) Urine Protein (Negative) Urine Glucose (UA) (Negative) g/dL Urine Ketones (NEGATIVE) Urine Occult Blood (Negative) Urine Nitrate (Negative) Urine Bilirubin (NEGATIVE) Urine Urobilinogen (0.2) E.U./dL Ur Leukocyte Esterase (NEGATIVE) Urine RBC (0-5/HPF) Urine WBC (0-5/HPF) Ur Squamous Epith Cells (0-5/HPF) Ur Transition Epith Cell (0-5/HPF) Calcium Oxalate Crystal Urine Bacteria (None) Hyaline Casts (None) Ur Culture Indicated? Ur Random Sodium (30-90) mmol/L Blood Type Antibody Screen Urine Dip Bedside Urine Glucose Negative Bedside Urine Bilirubin - Negative Bedside Urine Ketone +++ 80 Urine Specific [place] 1.030 Bedside Urine Occult Blood - Negative Bedside Urine pH 5.5 Bedside Urine Protein + 30 Bedside Urine Urobilinogen +/- 1mg Bedside Urine Nitrite - Negative Bedside Urine Leukocytes +++ 500 Esterase Imaging Data Chest x-ray: Radiologist's impression: PROCEDURE: XR CHEST 1V INDICATIONS: chest pain TECHNIQUE: One view of the chest was acquired. COMPARISON: [facility], CR, XR CHEST 1V, 01/14/2018, 14:17. FINDINGS: Surgical changes and devices: Surgical clips at the GE junction and gallbladder fossa. Lungs and pleura: Chronic right hemidiaphragm elevation. Lungs are clear. No pleural effusions or pneumothorax. Mediastinum: Mediastinal contours appear normal. Heart size is normal. Bones and chest wall: No suspicious bony lesions. Overlying soft tissues appear unremarkable. IMPRESSION: No acute cardiopulmonary disease. Dictated by: Isis Billy M.D. on 08/28/2018 at 13:46 Approved by: Isis Billy M.D. on 08/28/2018 at 13:46 Discharge Plan Departure Patient Disposition: Admitted as Observation Clinical Impression: Generalized weakness, Dehydration UTI (urinary tract infection) Qualifiers: Urinary tract infection type: site unspecified Hematuria presence: without hematuria Qualified Code(s): N39.0 - Urinary tract infection, site not specified Vomiting Qualifiers: Vomiting type: unspecified Vomiting Intractability: non-intractable Nausea presence: with nausea Qualified Code(s): R11.2 - Nausea with vomiting, unspecified Discharge Date/Time: 08/28/18 16:39 Interventions: ED Discharge Assessment Last Done: 08/28/18 16:32 Admit Date/Time: 08/29/18 10:42 Admit Provider: Young Chavez
[2018-08-28 14:26] LABS: Troponin I < 0.012 ng/mL (0.01-0.034)
--- NOTE | 2018-08-28 14:26 | ED_ITS ---
HPI - Nausea/Vomiting/Diarrhea General Chief complaint: Nausea/Vomiting/Diarrhea Stated complaint: Not eating, weak, sob, dizzy Time Seen by Provider: 08/28/18 13:10 Source: patient, family, EMS and other (Primary doctor) Mode of arrival: ambulatory Limitations: no limitations History of Present Illness HPI Narrative: Patient comes emergency department via EMS after being sent by her primary care physician who is concerned about her ongoing vomiting and diarrhea. Patient states that she has been having trouble with the vomiting and diarrhea for the last 2 months but that the last week, she has not been able to hold any solids down. She states she feels weak, and that she is having difficulty walking because of it. Patient was admitted at [place] for this about a month and was worked up by GI with endoscopy, and no specific diagnosis was found, according to patient. Patient's symptoms have continued since, and she has been followed by Dr. Zurita, her primary care physician, for this. Patient denies fevers or chills. She states her abdomen is sore from vomiting, but denies any pain otherwise. Patient denies any history of anxiety or depression, though Dr. Zuleta feels that this may be an issue in her ongoing digestive issues. Patient has no known history of Crohn's disease, ulcerative colitis, or any other chronic GI illness. No hematemesis, hematochezia, or melena. She denies any dysuria or back pain. no other complaints at this time. Related Data Home Medications Medication Instructions Recorded Confirmed Diabetic Shoes 1 pkg MISCELLANEOUS DIRECTED 01/14/18 08/28/18 Walker: Four Wheel 1 u MISCELLANEOUS DIRECTED 01/14/18 08/28/18 bupropion HCl 150 mg PO BID 03/05/18 08/28/18 carbidopa ER 50 mg-levodopa 200 mg 1 tab PO 5XD PRN tab 06/04/18 08/28/18 tablet,extended release ferrous sulfate [FeroSul] 1 tab PO BID 08/04/18 08/28/18 midodrine 5 mg PO BID 08/04/18 08/28/18 temazepam 15 mg PO BEDTIME PRN 08/04/18 08/28/18 aspirin 81 mg PO DAILY 08/28/18 08/28/18 gxivqchhyc-phgoijtpoknwy-bdmo 1 tab PO PRN PRN 08/28/18 08/28/18 gabapentin 600 - 1,200 mg PO TID 08/28/18 08/28/18 hydrocodone-acetaminophen 1 - 2 tab PO QID PRN 08/28/18 08/28/18 lovastatin 5 mg PO Q OTHER DAY 08/28/18 08/28/18 Previous Rx's Medication Instructions Recorded citalopram 20 mg tablet 40 mg PO DAILY #60 tab 07/04/18 levothyroxine 175 mcg tablet 175 mcg PO DAILY #90 tab 07/22/18 megestrol 400 mg/10 mL (10 mL) 800 mg PO DAILY #400 ml 08/19/18 oral suspension blood sugar diagnostic strips #100 each 08/27/18 blood-glucose meter kit #1 each 08/27/18 lancets #100 each 08/27/18 Allergies Allergy/AdvReac Type Severity Reaction Status Date / Time amoxicillin [From AUGMENTIN] Allergy Mild RASH Verified 08/15/18 10:06 clavulanic acid Allergy Mild RASH Verified 08/15/18 10:06 [From AUGMENTIN] metformin [METFORMIN] AdvReac Severe SWELLING Verified 08/15/18 10:06 Review of Systems Constitutional Denies chills, Denies fever(s), Denies lethargy and Reports weakness Eyes Denies change in vision, Denies eye discharge, Denies irritation and Denies loss of vision ENT Ears, Nose, Mouth, and Throat: Denies change in voice, Denies neck pain and Denies sore throat Cardiovascular Denies chest pain, Denies irregular heart rhythm, Denies lightheadedness, Denies palpitations, Denies dyspnea, Denies dyspnea on exertion and Denies orthopnea Respiratory Denies cough, Denies dyspnea, Denies dyspnea on exertion and Denies wheezing Gastrointestinal Gastrointestinal: Denies abdominal pain, Denies change in bowel habits, Reports diarrhea, Reports nausea and Reports vomiting Genitourinary Denies hematuria, Denies flank pain, Denies urinary incontinence and Denies urinary urgency Musculoskeletal Denies neck pain Integumentary/Breasts Denies pruritus, Denies erythema, Denies rash and Denies wounds Neurologic Denies confusion, Denies loss of vision and Reports weakness Psychiatric Denies anxiety, Denies confusion, Denies depression, Denies homicidal ideation and Denies suicidal ideation Endocrine Denies palpitations Hematologic/Lymphatic Denies easy bruising Allergic/Immunologic Denies wheezing PFSH Medical History Chronic back pain (Chronic ~2009) Neuropathy (Chronic ~2008) Headache (Chronic ~1989) Migraines (Chronic ~1989) Restless leg syndrome (Chronic ~1989) Lupus (Chronic ~1999) Arthritis (Chronic) Anemia (Chronic ~2004) Foot pain (Chronic ~2010) Fractures (Chronic ~2011) Gastric ulcer (Chronic ~1991) History of irregular menstrual cycles (Chronic ~1989) Hyperthyroidism (Chronic ~2004) Ovarian cyst (Chronic ~1999) Painful menstrual periods (Chronic ~1978) Chicken pox (Resolved) Measles (Resolved) Mumps (Resolved) Surgical History Gastric bypass status for obesity (Acute) H/O hernia repair (Acute) S/P foot surgery, right (Acute) Hx of resection of stomach (Resolved) Family History Grandfather No problems noted. Grandmother No problems noted. Mother No problems noted. Son Diabetes mellitus Social History marital status: household members: spouse Smoking Status: Never smoker alcohol intake: never substance use type: does not use Family History Grandfather No problems noted. Grandmother No problems noted. Mother No problems noted. Son Diabetes mellitus Social History marital status: household members: spouse Smoking Status: Never smoker alcohol intake: never substance use type: does not use Exam Initial Vital Signs Initial Vital Signs: Vital Signs Pulse Rate 78 08/28/18 13:09 Respiratory Rate 15 08/28/18 13:09 Blood Pressure 125/74 08/28/18 13:09 Pulse Oximetry 100 08/28/18 13:09 Const General: cooperative and well developed Nutritional Appearance: well nourished Orientation: alert, awake, oriented x3 and not confused HENMT Head: normocephalic and atraumatic Ears: external ears normal Nose: external nose normal and No nasal discharge Face and sinus: face symmetric and No dry mucous membranes Mouth: oral mucosae normal and moist mucous membranes Teeth and gingiva: dentition normal Eyes General: appearance normal, both eyes and all related structures Eyelids: eyelids normal Conjunctivae: conjunctivae normal Sclera: sclerae normal Pupils: PERRL EOM: EOM intact bilaterally Neck Neck: normal visual inspection, trachea midline, No lymphadenopathy, No midline deformity and No JVD Lymphatic: No lymphedema Chest Chest: normal inspection of the chest Resp Effort & Inspection: normal respiratory effort, able to speak in complete sentences, no respiratory distress and no use of accessory muscles Auscultation: clear to auscultation bilaterally, no rales, no rhonchi and no wheezes Cardio Rate: regular rate Rhythm: regular rhythm Heart Sounds: no click, no gallops, no murmurs and no rubs Pulses: normal peripheral pulses GI Inspection: non-distended Palpation: soft, no hepatosplenomegaly, No guarding, No pulsatile mass and tender (Mild, generalized.) Auscultation: normal bowel sounds Back/Spine/Pelvis Back: No CVA tenderness Cervical Spine: cervical ROM normal and No pain with cervical ROM Thoracic/Lumbar Spine: thoracic and lumbar spine normal to inspection Skin General: no rashes or lesions noted, No jaundice and No petechiae Neuro General: alert, oriented x3, gait normal and no focal motor deficits Speech: speech normal Extrem General: full ROM, no clubbing, cyanosis or edema, no pedal edema and no calf tenderness Psych Appearance: well kempt Mental Status: mental status grossly normal Attitude: cooperative Thought Content: normal and suicidality Judgment: judgment good Course Course Narrative: Patient was worked up with labs, EKG, and given banana bag and normal saline boluses. I reviewed extensive records from [place], and found the patient had been fully worked up by GI, with multiple specialists tests performed, with the exception of EGD, which had been done here, an entire workup between here and there was negative. The patient had been able to tolerate p.o. under the guidance of a dietitian at the hospital. I did also review the patient's medication list and found that she was not recorded to be on any antiemetics at home. I verified this with the patient, who stated she had previously been on antibiotics, but ran out and had no refills. She did not ask her doctor for any further medication for this. Patient had been given Zofran in the emergency department, and actually, was able to tolerate some Ensure here . However, the patient was extremely weak and could barely get out of bed, and I felt that she should come into the hospital for further nutritional management and IV fluids, as well as antiemetics. I did speak with Dr. Zurita, the patient's primary care physician and informed him that the patient would be stain. She has been accepted by Dr. Chavez, our hospitalist, for admission, after my conversation with him. Orders Ordered: ED Orders 08/30/18 04:20 Sodium Urine Random Routine 08/30/18 08:25 Basic Metabolic Panel Routine Complete Blood Count AUTO DIFF Routine Magnesium Stat Phosphorous Routine 08/30/18 10:03 Consult to Occupational Therapy Evaluate & Treat Consult to Physical Therapy Evaluate & Treat Acetaminophen (Tylenol) 975 mg PO Q8H PRN PRN Reason: As Needed for Fever/Mild Pain Aspirin (Aspirin Ec) 81 mg PO DAILY [facility] Last Admin: 08/30/18 08:33 Dose: 81 mg Admin: 08/29/18 10:00 Dose: 81 mg Bupropion HCl (Wellbutrin Sr) 150 mg PO BID [facility] Last Admin: 08/30/18 08:33 Dose: 150 mg Admin: 08/29/18 20:05 Dose: 150 mg Admin: 08/29/18 09:59 Dose: 150 mg Admin: 08/28/18 21:02 Dose: 150 mg Carbidopa/Levodopa (Sinemet Er 50-200 Tab) 1 each PO 5XD PRN PRN Reason: restless legs Last Admin: 08/29/18 20:06 Dose: 1 each Admin: 08/28/18 21:05 Dose: 1 each Admin: 08/28/18 21:02 Dose: 1 each Citalopram Hydrobromide (Celexa) 40 mg PO DAILY [facility] Last Admin: 08/30/18 08:34 Dose: 40 mg Admin: 08/29/18 10:00 Dose: 40 mg Enoxaparin Sodium (Lovenox) 40 mg SUBCUT DAILY [facility] Last Admin: 08/30/18 08:34 Dose: 40 mg Admin: 08/29/18 10:00 Dose: 40 mg Ferrous Sulfate (Ferrous Sulfate) 325 mg PO BID [facility] Last Admin: 08/30/18 08:33 Dose: 325 mg Admin: 08/29/18 20:05 Dose: 325 mg Admin: 08/29/18 09:59 Dose: 325 mg Admin: 08/28/18 21:02 Dose: 325 mg Gabapentin (Neurontin) 600 mg PO TID [facility] Last Admin: 08/30/18 08:34 Dose: 600 mg Admin: 08/29/18 20:06 Dose: 600 mg Admin: 08/29/18 14:36 Dose: 600 mg Admin: 08/29/18 09:59 Dose: 600 mg Admin: 08/28/18 21:02 Dose: 600 mg Levofloxacin (Levaquin) 250 mg in 50 mls @ 50 mls/hr IV Q24H [facility] Last Infusion: 08/30/18 00:44 Dose: 0 mls/hr Admin: 08/29/18 15:39 Dose: 50 mls/hr Sodium Bicarbonate 100 meq/ (Dextrose) 1,100 mls @ 150 mls/hr IV CONT [facility] Last Admin: 08/30/18 12:08 Dose: 150 mls/hr Infusion: 08/30/18 11:44 Dose: 150 mls/hr Admin: 08/30/18 04:24 Dose: 150 mls/hr Infusion: 08/29/18 20:22 Dose: 150 mls/hr Admin: 08/29/18 13:02 Dose: 150 mls/hr Levothyroxine Sodium (Synthroid) 100 mcg PO 0600 [facility] Last Admin: 08/30/18 05:36 Dose: 100 mcg Admin: 08/29/18 06:22 Dose: 100 mcg Levothyroxine Sodium (Synthroid) 75 mcg PO 0600 [facility] Last Admin: 08/30/18 05:36 Dose: 75 mcg Admin: 08/29/18 06:22 Dose: 75 mcg Lovastatin (Mevacor) 5 mg PO Q48H [facility] Last Admin: 08/30/18 08:34 Dose: 5 mg Magnesium Hydroxide (Milk Of Magnesia) 30 ml PO DAILY PRN PRN Reason: Constipation Megestrol Acetate (Megace Susp) 800 mg PO DAILY [facility] Last Admin: 08/30/18 08:34 Dose: Not Given Admin: 08/29/18 10:02 Dose: Not Given Midodrine (Midodrine) 5 mg PO BID [facility] Last Admin: 08/30/18 08:34 Dose: 5 mg Admin: 08/29/18 20:06 Dose: 5 mg Admin: 08/29/18 09:59 Dose: 5 mg Admin: 08/28/18 21:03 Dose: 5 mg Ondansetron HCl (Zofran) 4 mg IV Q4HR PRN PRN Reason: Nausea And Vomiting Last Admin: 08/29/18 07:50 Dose: 4 mg Admin: 08/28/18 22:00 Dose: 4 mg Admin: 08/28/18 17:38 Dose: 4 mg Oxycodone HCl (Percolone) 5 mg PO Q6H PRN PRN Reason: Pain, Moderate (4-6) Last Admin: 08/30/18 08:41 Dose: 5 mg Admin: 08/30/18 00:48 Dose: 5 mg Potassium Chloride (Klor-Con M20) 40 meq PO Q4H [facility] Stop: 08/30/18 14:46 Last Admin: 08/30/18 10:40 Dose: 40 meq Discontinued Medications Acetaminophen (Tylenol) 650 mg PO Q6HR PRN PRN Reason: As Needed for Fever/Mild Pain Hydrocodone Bitart/Acetaminophen ([place] 5/325) 1 tab PO QID PRN PRN Reason: BACK PAIN Hydrocodone Bitart/Acetaminophen ([place] 5/325) 2 tab PO QID PRN PRN Reason: BACK PAIN Last Admin: 08/29/18 20:00 Dose: 2 tab Admin: 08/29/18 13:04 Dose: 2 tab Admin: 08/29/18 07:50 Dose: 2 tab Admin: 08/29/18 03:30 Dose: 2 tab Admin: 08/28/18 21:59 Dose: 2 tab Admin: 08/28/18 18:05 Dose: 2 tab Magnesium Sulfate 2 gm/ Folic Acid 1 mg/ Thiamine HCl 100 mg / Multivitamins 10 ml/ Sodium Chloride 1,015.2 mls @ 1,000 mls/hr IV NOW ONE Stop: 08/28/18 14:14 Last Infusion: 08/28/18 15:08 Dose: 0 mls/hr Admin: 08/28/18 13:44 Dose: 1,000 mls/hr Sodium Chloride (Normal Saline 0.9%) 1,000 mls @ 1,000 mls/hr IV BOLUS ONE Stop: 08/28/18 14:13 Last Infusion: 08/28/18 23:13 Dose: 0 mls/hr Infusion: 08/28/18 15:09 Dose: 125 mls/hr Infusion: 08/28/18 13:44 Dose: 0 mls/hr Admin: 08/28/18 13:35 Dose: 1,000 mls/hr Sodium Chloride (Normal Saline 0.9%) 1,000 mls @ 1,000 mls/hr IV BOLUS ONE Stop: 08/28/18 15:13 Last Admin: 08/28/18 14:17 Dose: Not Given Levofloxacin (Levaquin) 500 mg in 100 mls @ 100 mls/hr IV NOW ONE Stop: 08/28/18 16:53 Last Infusion: 08/28/18 23:13 Dose: 0 mls/hr Admin: 08/28/18 16:21 Dose: 100 mls/hr Dextrose/Sodium Chloride (Dextrose 5%-0.45% Ns) 1,000 mls @ 150 mls/hr IV CONT [facility] Last Infusion: 08/29/18 11:04 Dose: 150 mls/hr Admin: 08/29/18 03:34 Dose: 100 mls/hr Infusion: 08/29/18 03:34 Dose: 100 mls/hr Admin: 08/28/18 17:38 Dose: 100 mls/hr Ondansetron HCl (Zofran) 4 mg IV NOW ONE Stop: 08/28/18 13:15 Last Admin: 08/28/18 13:35 Dose: 4 mg Temazepam (Resoril) 15 mg PO BEDTIME PRN PRN Reason: Sleep Last Admin: 08/28/18 21:05 Dose: 15 mg Vital Signs - 8 hr 08/30/18 04:38 08/30/18 07:55 08/30/18 09:16 Temperature 97.6 F 97.1 F L Pulse Rate 62 78 Respiratory Rate 16 18 Blood Pressure 115/64 109/61 Pulse Oximetry 100 100 98 MDM - Nausea/Vomiting/Diarrhea Medical Records Attestation: I reviewed the patient's medical records. Lab Data Attestation: I reviewed the patient's lab results. Result diagrams: 08/30/18 08:25 08/30/18 08:25 Lab Results 08/28/18 08/28/18 08/28/18 Range/Units 13:50 13:50 13:50 WBC 6.0 (4.5-11.0) X10^3/uL RBC 3.36 L (4.0-5.2) X10^6/uL Hgb 10.4 L (12.0-16.0) g/dL Hct 31.2 L (36-46) % MCV 92.8 (80-100) fL MCH 30.8 (26-34) PG MCHC 33.2 (30-36) % RDW 18.2 H (11.6-14.8) % Plt Count 386 (150-400) X10^3/uL Neut % (Auto) 77.1 H (50-75) % Lymph % (Auto) 13.0 L (25-40) % Mcintosh % (Auto) 8.4 (3-14) % Eos % (Auto) 0.7 L (2-4) % Baso % (Auto) 0.8 (0-2) % Neut # (Auto) 4600 (0615-6977) /uL Lymph # (Auto) 800 L (1645-5515) /uL Mcintosh # (Auto) 500 (0-900) /uL Eos # (Auto) 0 (0-450) /uL Baso # (Auto) 0 (0-100) /uL Seg Neutrophils % (38-70) % Lymphocytes % (Manual) (25-45) % Atypical Lymphs % ( - 0) % Monocytes % (Manual) (2-11) % Eosinophils % (Manual) (2-4) % RBC Morphology See below Hypochromasia Poikilocytosis 1+ H Anisocytosis 1+ H Schistocytes 1+ H PT 12.3 (10.1-12.7) SECONDS INR 1.1 (0.9-1.3) APTT 31 (26.4-36.2) SECONDS ABG pH (7.35-7.45) ABG pCO2 (35-45) mmHg ABG pO2 (80-100) mmHg ABG HCO3 (22-26) mmol/L ABG Total CO2 (21-31) mmol/L ABG O2 Saturation (95-100) % ABG Base Excess (-2-2) mmol/L FiO2 Sodium 133 L (137-145) mmol/L Potassium 4.4 (3.4-5.1) mmol/L Chloride 109 H (98-107) mmol/L Carbon Dioxide 12 L (22-32) mmol/L BUN 8 (7-17) mg/dL Creatinine 0.50 L (0.52-1.04) mg/dL Estimated GFR > 60.0 (>60) mL/min BUN/Creatinine Ratio 16.0 (6-22) Glucose 87 (80-110) mg/dL Calcium 8.8 (8.4-10.2) mg/dL Phosphorus (2.8-4.1) mg/dL Magnesium (1.6-2.3) mg/dL Total Bilirubin 0.6 (0.2-1.3) mg/dL AST 10 L (14-36) IU/L ALT 7 L (9-52) IU/L Alkaline Phosphatase 88 (38-126) U/L Total Creatine Kinase < 20 L (30-135) U/L CK-MB (CK-2) TNP CK-MB (CK-2) Rel Index TNP Troponin I < 0.012 (0.01-0.034) ng/mL Total Protein 5.7 L (6.3-8.2) g/dL Albumin 2.8 L (3.5-5.0) g/dL Globulin 2.9 (1.7-4.1) g/dL Albumin/Globulin Ratio 1.0 (1.0-2.8) Lipase 287 (23-300) U/L TSH (0.47-4.68) uIU/mL Free T4 (0.78-2.19) ng/dL Urine Color Urine Appearance Urine pH (4.5-8.0) Ur Specific [place] (1.000-1.035) Urine Protein (Negative) Urine Glucose (UA) (Negative) g/dL Urine Ketones (NEGATIVE) Urine Occult Blood (Negative) Urine Nitrate (Negative) Urine Bilirubin (NEGATIVE) Urine Urobilinogen (0.2) E.U./dL Ur Leukocyte Esterase (NEGATIVE) Urine RBC (0-5/HPF) Urine WBC (0-5/HPF) Ur Squamous Epith Cells (0-5/HPF) Ur Transition Epith Cell (0-5/HPF) Calcium Oxalate Crystal Urine Bacteria (None) Hyaline Casts (None) Ur Culture Indicated? Ur Random Sodium (30-90) mmol/L Blood Type Antibody Screen 0508/28/18 08/28/18 Range/Units 13:50 13:50 14:06 WBC (4.5-11.0) X10^3/uL RBC (4.0-5.2) X10^6/uL Hgb (12.0-16.0) g/dL Hct (36-46) % MCV (80-100) fL MCH (26-34) PG MCHC (30-36) % RDW (11.6-14.8) % Plt Count (150-400) X10^3/uL Neut % (Auto) (50-75) % Lymph % (Auto) (25-40) % Mcintosh % (Auto) (3-14) % Eos % (Auto) (2-4) % Baso % (Auto) (0-2) % Neut # (Auto) (5005-4256) /uL Lymph # (Auto) (7158-7260) /uL Mcintosh # (Auto) (0-900) /uL Eos # (Auto) (0-450) /uL Baso # (Auto) (0-100) /uL Seg Neutrophils % (38-70) % Lymphocytes % (Manual) (25-45) % Atypical Lymphs % ( - 0) % Monocytes % (Manual) (2-11) % Eosinophils % (Manual) (2-4) % RBC Morphology Hypochromasia Poikilocytosis Anisocytosis Schistocytes PT (10.1-12.7) SECONDS INR (0.9-1.3) APTT (26.4-36.2) SECONDS ABG pH (7.35-7.45) ABG pCO2 (35-45) mmHg ABG pO2 (80-100) mmHg ABG HCO3 (22-26) mmol/L ABG Total CO2 (21-31) mmol/L ABG O2 Saturation (95-100) % ABG Base Excess (-2-2) mmol/L FiO2 Sodium (137-145) mmol/L Potassium (3.4-5.1) mmol/L Chloride (98-107) mmol/L Carbon Dioxide (22-32) mmol/L BUN (7-17) mg/dL Creatinine (0.52-1.04) mg/dL Estimated GFR (>60) mL/min BUN/Creatinine Ratio (6-22) Glucose (80-110) mg/dL Calcium (8.4-10.2) mg/dL Phosphorus (2.8-4.1) mg/dL Magnesium (1.6-2.3) mg/dL Total Bilirubin (0.2-1.3) mg/dL AST (14-36) IU/L ALT (9-52) IU/L Alkaline Phosphatase (38-126) U/L Total Creatine Kinase (30-135) U/L CK-MB (CK-2) CK-MB (CK-2) Rel Index Troponin I (0.01-0.034) ng/mL Total Protein (6.3-8.2) g/dL Albumin (3.5-5.0) g/dL Globulin (1.7-4.1) g/dL Albumin/Globulin Ratio (1.0-2.8) Lipase (23-300) U/L TSH 10.20 H (0.47-4.68) uIU/mL Free T4 1.15 (0.78-2.19) ng/dL Urine Color Yellow Urine Appearance Cloudy Urine pH 5.0 (4.5-8.0) Ur Specific [place] 1.025 (1.000-1.035) Urine Protein Trace H (Negative) Urine Glucose (UA) Negative (Negative) g/dL Urine Ketones 2+ H (NEGATIVE) Urine Occult Blood Negative (Negative) Urine Nitrate Negative (Negative) Urine Bilirubin Negative (NEGATIVE) Urine Urobilinogen 0.2 (0.2) E.U./dL Ur Leukocyte Esterase 1+ H (NEGATIVE) Urine RBC None seen (0-5/HPF) Urine WBC 10-30/hpf H (0-5/HPF) Ur Squamous Epith Cells 0-1 /hpf (0-5/HPF) Ur Transition Epith Cell 0-1/hpf (0-5/HPF) Calcium Oxalate Crystal Few H Urine Bacteria Many (>30) H (None) Hyaline Casts 0-1/lpf (None) Ur Culture Indicated? Specimen cultured Ur Random Sodium (30-90) mmol/L Blood Type A Negative Antibody Screen Negative 08/29/18 08/29/18 08/29/18 Range/Units 05:22 07:15 10:22 WBC 9.2 D (4.5-11.0) X10^3/uL RBC 3.54 L (4.0-5.2) X10^6/uL Hgb 10.7 L (12.0-16.0) g/dL Hct 33.0 L (36-46) % MCV 93.1 (80-100) fL MCH 30.1 (26-34) PG MCHC 32.4 (30-36) % RDW 18.0 H (11.6-14.8) % Plt Count 266 (150-400) X10^3/uL Neut % (Auto) Not Reportable (50-75) % Lymph % (Auto) Not Reportable (25-40) % Mcintosh % (Auto) Not Reportable (3-14) % Eos % (Auto) Not Reportable (2-4) % Baso % (Auto) Not Reportable (0-2) % Neut # (Auto) (7789-0546) /uL Lymph # (Auto) Not Reportable (6522-9888) /uL Mcintosh # (Auto) Not Reportable (0-900) /uL Eos # (Auto) (0-450) /uL Baso # (Auto) Not Reportable (0-100) /uL Seg Neutrophils % 56.0 (38-70) % Lymphocytes % (Manual) 30.0 (25-45) % Atypical Lymphs % 10.0 H ( - 0) % Monocytes % (Manual) 2.0 (2-11) % Eosinophils % (Manual) 2.0 (2-4) % RBC Morphology See below Hypochromasia Poikilocytosis Anisocytosis 2+ H Schistocytes PT (10.1-12.7) SECONDS INR (0.9-1.3) APTT (26.4-36.2) SECONDS ABG pH 7.33 L (7.35-7.45) ABG pCO2 18.0 L* (35-45) mmHg ABG pO2 115 H (80-100) mmHg ABG HCO3 10 L (22-26) mmol/L ABG Total CO2 10 L (21-31) mmol/L ABG O2 Saturation 98 (95-100) % ABG Base Excess -16.0 L (-2-2) mmol/L FiO2 21 Sodium 136 L (137-145) mmol/L Potassium 3.9 (3.4-5.1) mmol/L Chloride 115 H (98-107) mmol/L Carbon Dioxide 11 L (22-32) mmol/L BUN 9 (7-17) mg/dL Creatinine 0.50 L (0.52-1.04) mg/dL Estimated GFR > 60.0 (>60) mL/min BUN/Creatinine Ratio 18.0 (6-22) Glucose 118 H (80-110) mg/dL Calcium 8.9 (8.4-10.2) mg/dL Phosphorus (2.8-4.1) mg/dL Magnesium (1.6-2.3) mg/dL Total Bilirubin (0.2-1.3) mg/dL AST (14-36) IU/L ALT (9-52) IU/L Alkaline Phosphatase (38-126) U/L Total Creatine Kinase (30-135) U/L CK-MB (CK-2) CK-MB (CK-2) Rel Index Troponin I (0.01-0.034) ng/mL Total Protein (6.3-8.2) g/dL Albumin (3.5-5.0) g/dL Globulin (1.7-4.1) g/dL Albumin/Globulin Ratio (1.0-2.8) Lipase (23-300) U/L TSH (0.47-4.68) uIU/mL Free T4 (0.78-2.19) ng/dL Urine Color Urine Appearance Urine pH (4.5-8.0) Ur Specific [place] (1.000-1.035) Urine Protein (Negative) Urine Glucose (UA) (Negative) g/dL Urine Ketones (NEGATIVE) Urine Occult Blood (Negative) Urine Nitrate (Negative) Urine Bilirubin (NEGATIVE) Urine Urobilinogen (0.2) E.U./dL Ur Leukocyte Esterase (NEGATIVE) Urine RBC (0-5/HPF) Urine WBC (0-5/HPF) Ur Squamous Epith Cells (0-5/HPF) Ur Transition Epith Cell (0-5/HPF) Calcium Oxalate Crystal Urine Bacteria (None) Hyaline Casts (None) Ur Culture Indicated? Ur Random Sodium (30-90) mmol/L Blood Type Antibody Screen 08/29/18 08/30/18 08/30/18 Range/Units 11:58 04:20 08:25 WBC 5.7 (4.5-11.0) X10^3/uL RBC 3.32 L (4.0-5.2) X10^6/uL Hgb 10.3 L (12.0-16.0) g/dL Hct 30.6 L (36-46) % MCV 92.3 (80-100) fL MCH 31.0 (26-34) PG MCHC 33.6 (30-36) % RDW 17.8 H (11.6-14.8) % Plt Count 259 (150-400) X10^3/uL Neut % (Auto) 52.5 D (50-75) % Lymph % (Auto) 33.8 D (25-40) % Mcintosh % (Auto) 8.7 (3-14) % Eos % (Auto) 4.2 H (2-4) % Baso % (Auto) 0.8 (0-2) % Neut # (Auto) 3000 (6211-1393) /uL Lymph # (Auto) 1900 (5739-8071) /uL [place] # (Auto) 500 (0-900) /uL Eos # (Auto) 200 (0-450) /uL Baso # (Auto) 0 (0-100) /uL Seg Neutrophils % (38-70) % Lymphocytes % (Manual) (25-45) % Atypical Lymphs % ( - 0) % Monocytes % (Manual) (2-11) % Eosinophils % (Manual) (2-4) % RBC Morphology See below Hypochromasia 1+ H Poikilocytosis 1+ H Anisocytosis Schistocytes PT (10.1-12.7) SECONDS INR (0.9-1.3) APTT (26.4-36.2) SECONDS ABG pH (7.35-7.45) ABG pCO2 (35-45) mmHg ABG pO2 (80-100) mmHg ABG HCO3 (22-26) mmol/L ABG Total CO2 (21-31) mmol/L ABG O2 Saturation (95-100) % ABG Base Excess (-2-2) mmol/L FiO2 Sodium (137-145) mmol/L Potassium (3.4-5.1) mmol/L Chloride (98-107) mmol/L Carbon Dioxide (22-32) mmol/L BUN (7-17) mg/dL Creatinine (0.52-1.04) mg/dL Estimated GFR (>60) mL/min BUN/Creatinine Ratio (6-22) Glucose (80-110) mg/dL Calcium (8.4-10.2) mg/dL Phosphorus (2.8-4.1) mg/dL Magnesium (1.6-2.3) mg/dL Total Bilirubin (0.2-1.3) mg/dL AST (14-36) IU/L ALT (9-52) IU/L Alkaline Phosphatase (38-126) U/L Total Creatine Kinase (30-135) U/L CK-MB (CK-2) CK-MB (CK-2) Rel Index Troponin I (0.01-0.034) ng/mL Total Protein (6.3-8.2) g/dL Albumin (3.5-5.0) g/dL Globulin (1.7-4.1) g/dL Albumin/Globulin Ratio (1.0-2.8) Lipase (23-300) U/L TSH (0.47-4.68) uIU/mL Free T4 (0.78-2.19) ng/dL Urine Color Yellow Urine Appearance Clear Urine pH 5.5 (4.5-8.0) Ur Specific [place] 1.020 (1.000-1.035) Urine Protein Negative (Negative) Urine Glucose (UA) Negative (Negative) g/dL Urine Ketones Negative (NEGATIVE) Urine Occult Blood Negative (Negative) Urine Nitrate Negative (Negative) Urine Bilirubin Negative (NEGATIVE) Urine Urobilinogen 0.2 (0.2) E.U./dL Ur Leukocyte Esterase 1+ H (NEGATIVE) Urine RBC None seen (0-5/HPF) Urine WBC 5-10/hpf H (0-5/HPF) Ur Squamous Epith Cells 1-5 /hpf (0-5/HPF) Ur Transition Epith Cell (0-5/HPF) Calcium Oxalate Crystal Urine Bacteria None seen (None) Hyaline Casts (None) Ur Culture Indicated? Culture not indicate Ur Random Sodium 15 L (30-90) mmol/L Blood Type Antibody Screen 08/30/18 08/30/18 08/30/18 Range/Units 08:25 08:25 08:25 WBC (4.5-11.0) X10^3/uL RBC (4.0-5.2) X10^6/uL Hgb (12.0-16.0) g/dL Hct (36-46) % MCV (80-100) fL MCH (26-34) PG MCHC (30-36) % RDW (11.6-14.8) % Plt Count (150-400) X10^3/uL Neut % (Auto) (50-75) % Lymph % (Auto) (25-40) % [place] % (Auto) (3-14) % Eos % (Auto) (2-4) % Baso % (Auto) (0-2) % Neut # (Auto) (9067-3706) /uL Lymph # (Auto) (5610-4301) /uL [place] # (Auto) (0-900) /uL Eos # (Auto) (0-450) /uL Baso # (Auto) (0-100) /uL Seg Neutrophils % (38-70) % Lymphocytes % (Manual) (25-45) % Atypical Lymphs % ( - 0) % Monocytes % (Manual) (2-11) % Eosinophils % (Manual) (2-4) % RBC Morphology Hypochromasia Poikilocytosis Anisocytosis Schistocytes PT (10.1-12.7) SECONDS INR (0.9-1.3) APTT (26.4-36.2) SECONDS ABG pH (7.35-7.45) ABG pCO2 (35-45) mmHg ABG pO2 (80-100) mmHg ABG HCO3 (22-26) mmol/L ABG Total CO2 (21-31) mmol/L ABG O2 Saturation (95-100) % ABG Base Excess (-2-2) mmol/L FiO2 Sodium 138 (137-145) mmol/L Potassium 2.8 L (3.4-5.1) mmol/L Chloride 106 (98-107) mmol/L Carbon Dioxide 20 L (22-32) mmol/L BUN 6 L (7-17) mg/dL Creatinine 0.50 L (0.52-1.04) mg/dL Estimated GFR > 60.0 (>60) mL/min BUN/Creatinine Ratio 12.0 (6-22) Glucose 106 (80-110) mg/dL Calcium 8.4 (8.4-10.2) mg/dL Phosphorus 2.8 (2.8-4.1) mg/dL Magnesium 1.8 (1.6-2.3) mg/dL Total Bilirubin (0.2-1.3) mg/dL AST (14-36) IU/L ALT (9-52) IU/L Alkaline Phosphatase (38-126) U/L Total Creatine Kinase (30-135) U/L CK-MB (CK-2) CK-MB (CK-2) Rel Index Troponin I (0.01-0.034) ng/mL Total Protein (6.3-8.2) g/dL Albumin (3.5-5.0) g/dL Globulin (1.7-4.1) g/dL Albumin/Globulin Ratio (1.0-2.8) Lipase (23-300) U/L TSH (0.47-4.68) uIU/mL Free T4 (0.78-2.19) ng/dL Urine Color Urine Appearance Urine pH (4.5-8.0) Ur Specific [place] (1.000-1.035) Urine Protein (Negative) Urine Glucose (UA) (Negative) g/dL Urine Ketones (NEGATIVE) Urine Occult Blood (Negative) Urine Nitrate (Negative) Urine Bilirubin (NEGATIVE) Urine Urobilinogen (0.2) E.U./dL Ur Leukocyte Esterase (NEGATIVE) Urine RBC (0-5/HPF) Urine WBC (0-5/HPF) Ur Squamous Epith Cells (0-5/HPF) Ur Transition Epith Cell (0-5/HPF) Calcium Oxalate Crystal Urine Bacteria (None) Hyaline Casts (None) Ur Culture Indicated? Ur Random Sodium (30-90) mmol/L Blood Type Antibody Screen Urine Dip Bedside Urine Glucose Negative Bedside Urine Bilirubin - Negative Bedside Urine Ketone +++ 80 Urine Specific [place] 1.030 Bedside Urine Occult Blood - Negative Bedside Urine pH 5.5 Bedside Urine Protein + 30 Bedside Urine Urobilinogen +/- 1mg Bedside Urine Nitrite - Negative Bedside Urine Leukocytes +++ 500 Esterase Imaging Data Chest x-ray: Radiologist's impression: PROCEDURE: XR CHEST 1V INDICATIONS: chest pain TECHNIQUE: One view of the chest was acquired. COMPARISON: [facility], CR, XR CHEST 1V, 01/14/2018, 14:17. FINDINGS: Surgical changes and devices: Surgical clips at the GE junction and gallbladder fossa. Lungs and pleura: Chronic right hemidiaphragm elevation. Lungs are clear. No pleural effusions or pneumothorax. Mediastinum: Mediastinal contours appear normal. Heart size is normal. Bones and chest wall: No suspicious bony lesions. Overlying soft tissues appear unremarkable. IMPRESSION: No acute cardiopulmonary disease. Dictated by: Isis Billy M.D. on 08/28/2018 at 13:46 Approved by: Isis Billy M.D. on 08/28/2018 at 13:46 Discharge Plan Departure Patient Disposition: Admitted as Observation Clinical Impression: Generalized weakness, Dehydration UTI (urinary tract infection) Qualifiers: Urinary tract infection type: site unspecified Hematuria presence: without hematuria Qualified Code(s): N39.0 - Urinary tract infection, site not specified Vomiting Qualifiers: Vomiting type: unspecified Vomiting Intractability: non-intractable Nausea presence: with nausea Qualified Code(s): R11.2 - Nausea with vomiting, unspecified Discharge Date/Time: 08/28/18 16:39 Interventions: ED Discharge Assessment Last Done: 08/28/18 16:32 Admit Date/Time: 08/29/18 10:42 Admit Provider: Young Chavez
[2018-08-28 14:35] LABS: Anisocytosis 1+
[2018-08-28 14:36] LABS: Schistocytes 1+
[2018-08-28 14:37] LABS: Poikilocytosis 1+
[2018-08-28 15:09] LABS: Squamous Epithelial Cell Urine 0-1 /HPF (0-5/HPF); WBC Urine 10-30/HPF (0-5/HPF)
[2018-08-28 15:10] LABS: Bacteria Urine Many (>30); Calcium Oxalate Crystals Urine Few; Culture Indicated Urine Specimen Cultured; Hyaline Casts Urine 0-1/LPF; Transitional Epi Cells Urine 0-1/HPF (0-5/HPF)
[2018-08-28] MEDS: levoFLOXacin 500 MG/100 ML PIGGYBACK 100 MG IV (16:21)
[2018-08-28] MEDS: DEXTROSE 5%-0.45% NS 1,000 ML 100 ML IV (17:38)
--- NOTE | 2018-08-28 17:47 | P.HP_ITS ---
History of Present Illness Date Patient Seen: 08/28/18 Time Patient Seen: 16:30 Chief complaint: Not eating, weak, sob, dizzy Narrative: Patient is 73-year-old female with history of unexplained abdominal pain, nausea and vomiting, abnormal weight loss presented to the hospital with 3 day history of intractable vomiting. Patient has history of gastric bypass surgery over 30 years ago. She started having GI symptoms about 4 months ago with complaints of persistent abdominal pain, nausea and vomiting, poor appetite and weight loss. She had a normal outpatient EGD on 06/04/2018 and an inpatient EGD as well as colonoscopy at [facility] on 08/05/2018. She had extensive inpatient workup at [facility] in May to June of this year including repeat CT scan imaging, HIDA scan, Gastrografin study to rule out a surgical anastomosis leak or any obstruction. Etiology of her symptoms has remained unknown. She was supposed to establish with GI at [facility] but somehow that never transpired. Since her last hospital discharge in June she has had periodic nausea and vomiting. She states the abdominal pain has not been significant. She has continued to have extremely poor appetite with ongoing weight loss and states she has lost 40-50 lb since onset of her GI symptoms 4 months ago. About 3 days ago she started having more intractable vomiting, mainly dry heaves, and unable to keep down any food or much liquids. Also later she noticed some increase in her chronic lower back pain and urinary frequency which in the past she has associated with UTI. She has not had fevers or rigors. She does have chronic back pain condition with opioid dependency on hydrocodone. She has a history of diabetes and was taken off of glimepiride earlier this year due to low blood sugars associated with weight loss. She has history of RLS for which she is on carbidopa levodopa. She also has history of depression managed on citalopram. Patient History Medical History Chronic back pain (Chronic ~2009) Neuropathy (Chronic ~2008) Headache (Chronic ~1989) Migraines (Chronic ~1989) Restless leg syndrome (Chronic ~1989) Lupus (Chronic ~1999) Arthritis (Chronic) Anemia (Chronic ~2004) Foot pain (Chronic ~2010) Fractures (Chronic ~2011) Gastric ulcer (Chronic ~1991) History of irregular menstrual cycles (Chronic ~1989) Hyperthyroidism (Chronic ~2004) Ovarian cyst (Chronic ~1999) Painful menstrual periods (Chronic ~1978) Chicken pox (Resolved) Measles (Resolved) Mumps (Resolved) Surgical History Gastric bypass status for obesity (Acute) H/O hernia repair (Acute) S/P foot surgery, right (Acute) Hx of resection of stomach (Resolved) Family History Grandfather No problems noted. Grandmother No problems noted. Mother No problems noted. Son Diabetes mellitus Social History marital status: household members: spouse Smoking Status: Never smoker alcohol intake: never substance use type: does not use Family & Social History Family History Grandfather No problems noted. Grandmother No problems noted. Mother No problems noted. Son Diabetes mellitus Social History: household members spouse Prior Living Arrangements House Safety & Behavioral: Feels Safe in Current Yes Environment Been Physically Hurt or No Threatened By a Person Suicidal Ideation Description None Suicide Plan Description No Plan Tobacco & Substance use: Smoking Status Never smoker alcohol intake never alcohol intake frequency other Substance Use Type does not use Meds Home Medications Medication Instructions Recorded Confirmed Type Diabetic Shoes 1 pkg MISCELLANEOUS DIRECTED 01/14/18 08/28/18 History Walker: Four Wheel 1 u MISCELLANEOUS DIRECTED 01/14/18 08/28/18 History bupropion HCl 150 mg PO BID 03/05/18 08/28/18 History carbidopa ER 50 mg-levodopa 200 mg 1 tab PO 5XD PRN tab 06/04/18 08/28/18 History tablet,extended release citalopram 20 mg tablet 40 mg PO DAILY #60 tab 07/04/18 08/28/18 Rx levothyroxine 175 mcg tablet 175 mcg PO DAILY #90 tab 07/22/18 08/28/18 Rx ferrous sulfate [FeroSul] 1 tab PO BID 08/04/18 08/28/18 History midodrine 5 mg PO BID 08/04/18 08/28/18 History temazepam 15 mg PO BEDTIME PRN 08/04/18 08/28/18 History megestrol 400 mg/10 mL (10 mL) 800 mg PO DAILY #400 ml 08/19/18 08/28/18 Rx oral suspension blood sugar diagnostic strips #100 each 08/27/18 08/28/18 Rx blood-glucose meter kit #1 each 08/27/18 08/28/18 Rx lancets #100 each 08/27/18 08/28/18 Rx aspirin 81 mg PO DAILY 08/28/18 08/28/18 History unpdjcxtzc-dfherjzermzkp-rfnu 1 tab PO PRN PRN 08/28/18 08/28/18 History gabapentin 600 - 1,200 mg PO TID 08/28/18 08/28/18 History hydrocodone-acetaminophen 1 - 2 tab PO QID PRN 08/28/18 08/28/18 History lovastatin 5 mg PO Q OTHER DAY 08/28/18 08/28/18 History Allergies Allergy/AdvReac Type Severity Reaction Status Date / Time amoxicillin [From AUGMENTIN] Allergy Mild RASH Verified 08/15/18 10:06 clavulanic acid Allergy Mild RASH Verified 08/15/18 10:06 [From AUGMENTIN] metformin [METFORMIN] AdvReac Severe SWELLING Verified 08/15/18 10:06 Review of Systems Review of Systems All systems reviewed & are unremarkable except as noted in HPI and below Exam Vital Signs (past 8 hours): - 08/28/18 13:09 08/28/18 13:10 08/28/18 14:00 Temperature 97.4 F L Pulse Rate 78 84 75 Respiratory Rate 15 15 13 Blood Pressure 125/74 Blood Pressure [Left Arm] 125/74 113/70 Pulse Oximetry 100 98 100 08/28/18 15:30 08/28/18 16:00 08/28/18 16:32 Temperature Pulse Rate 63 72 72 Respiratory Rate 13 10 L 18 Blood Pressure 116/63 Blood Pressure [Left Arm] 103/55 L 115/66 Pulse Oximetry 100 100 100 08/28/18 16:45 Temperature 97.9 F Pulse Rate 88 Respiratory Rate 16 Blood Pressure 138/80 Blood Pressure [Left Arm] Pulse Oximetry 97 Oxygen Delivery Method Room Air Narrative Exam Narrative: GENERAL: Alert and pleasant cooperative female in mild distress HEAD: Atraumatic. Normocephalic. EYES: Pupils equal, round and reactive. Extraocular motions intact. No scleral icterus. No injection or drainage. OROPHARYNX: Dry oral mucosa NECK: Trachea midline. No JVD. No cervical or supraclavicular lymphadenopathy. CARDIOVASCULAR: Regular rate and rhythm without murmurs, gallops, or rubs. RESPIRATORY: Clear to auscultation bilaterally. GASTROINTESTINAL: Abdomen with old healed scars, nondistended, soft, non-tender. No hepato-splenomegaly, no palpable masses. EXTREMITIES: No edema. NEUROLOGICAL: well oriented, speech is intact, normal bilateral upper and lower extremity strength SKIN: warm, dry, no rash Objective Imaging Chest x-ray: Radiologist's impression: Normal Labs Result Diagrams: 08/28/18 13:50 08/28/18 13:50 Labs: Laboratory Results - last 24 hr 08/28/18 08/28/18 08/28/18 13:50 13:50 13:50 WBC 6.0 RBC 3.36 L Hgb 10.4 L Hct 31.2 L MCV 92.8 MCH 30.8 MCHC 33.2 RDW 18.2 H Plt Count 386 Neut % (Auto) 77.1 H Lymph % (Auto) 13.0 L [place] % (Auto) 8.4 Eos % (Auto) 0.7 L Baso % (Auto) 0.8 Neut # (Auto) 4600 Lymph # (Auto) 800 L [place] # (Auto) 500 Eos # (Auto) 0 Baso # (Auto) 0 RBC Morphology See below Poikilocytosis 1+ H Anisocytosis 1+ H Schistocytes 1+ H PT 12.3 INR 1.1 APTT 31 Sodium 133 L Potassium 4.4 Chloride 109 H Carbon Dioxide 12 L BUN 8 Creatinine 0.50 L Estimated GFR > 60.0 BUN/Creatinine Ratio 16.0 Glucose 87 Calcium 8.8 Total Bilirubin 0.6 AST 10 L ALT 7 L Alkaline Phosphatase 88 Total Creatine Kinase < 20 L CK-MB (CK-2) TNP CK-MB (CK-2) Rel Index TNP Troponin I < 0.012 Total Protein 5.7 L Albumin 2.8 L Globulin 2.9 Albumin/Globulin Ratio 1.0 Lipase 287 Urine Color Urine Appearance Urine pH Ur Specific [place] Urine Protein Urine Glucose (UA) Urine Ketones Urine Occult Blood Urine Nitrate Urine Bilirubin Urine Urobilinogen Ur Leukocyte Esterase Urine RBC Urine WBC Ur Squamous Epith Cells Ur Transition Epith Cell Calcium Oxalate Crystal Urine Bacteria Hyaline Casts Ur Culture Indicated? Blood Type Antibody Screen 08/28/18 08/28/18 13:50 14:06 WBC RBC Hgb Hct MCV MCH MCHC RDW Plt Count Neut % (Auto) Lymph % (Auto) [place] % (Auto) Eos % (Auto) Baso % (Auto) Neut # (Auto) Lymph # (Auto) [place] # (Auto) Eos # (Auto) Baso # (Auto) RBC Morphology Poikilocytosis Anisocytosis Schistocytes PT INR APTT Sodium Potassium Chloride Carbon Dioxide BUN Creatinine Estimated GFR BUN/Creatinine Ratio Glucose Calcium Total Bilirubin AST ALT Alkaline Phosphatase Total Creatine Kinase CK-MB (CK-2) CK-MB (CK-2) Rel Index Troponin I Total Protein Albumin Globulin Albumin/Globulin Ratio Lipase Urine Color Yellow Urine Appearance Cloudy Urine pH 5.0 Ur Specific [place] 1.025 Urine Protein Trace H Urine Glucose (UA) Negative Urine Ketones 2+ H Urine Occult Blood Negative Urine Nitrate Negative Urine Bilirubin Negative Urine Urobilinogen 0.2 Ur Leukocyte Esterase 1+ H Urine RBC None seen Urine WBC 10-30/hpf H Ur Squamous Epith Cells 0-1 /hpf Ur Transition Epith Cell 0-1/hpf Calcium Oxalate Crystal Few H Urine Bacteria Many (>30) H Hyaline Casts 0-1/lpf Ur Culture Indicated? Specimen cultured Blood Type A Negative Antibody Screen Negative Assessment & Plan Assessment & Plan narrative: This is a 73-year-old female with history of persistent abdominal pain, nausea and vomiting and severe abnormal weight loss who presents with 3 day history of intractable vomiting. 1. Intractable nausea and vomiting with acute dehydration -this appears exacerbation of her more chronic condition which remains unexplained after extensive workup -orthostatic in ED with systolic BP dropping from 125 to 90s from supine to standing -received 2 L normal saline in the ED -switch maintenance IV fluid to D5 half-normal saline at 150 cc/hour. Patient has a hyperchloremic non-anion gap metabolic acidosis which may be exacerbated by too much normal saline hydration. -ondansetron 4 mg IV q.4 hours as needed for nausea and vomiting -diet as tolerated -establish with GI specialty at [facility] for outpatient follow-up 2. Non-anion gap metabolic acidosis -serum bicarbonates 12 on admission presumably due to vomiting, also the acidosis may be further exacerbating her nausea and vomiting -restore fluid balance with IV fluids -repeat labs in a.m. 3. Anemia of chronic disease -stable, current hemoglobin 10.4, previous hemoglobin ranging from 8.8-11.7 in July this year -repeat CBC in a.m. to assess post hydration 4. Abnormal unexplained weight loss -as noted patient had 40-50 lb weight loss over the past 4 months -patient brought up possibility of feeding tube which can be pursued with outpatient consultation although concern would be she may not tolerate the feedings due to persistent vomiting 5. Hypothyroidism -patient on levothyroxine 175 mcg daily replacement to continue -TSH with reflex free T4 requested 6. Opioid dependency for chronic back pain -continue patient on her hydrocodone 7. Depression -per patient mood stable, continue citalopram 40 mg daily Patient admitted for hospital observation to get management of intractable nausea and vomiting and IV fluids for dehydration. Quality VTE Deep Vein Thrombosis/Pulmonary Embolism Present on Admission: No
[2018-08-28] MEDS: HYDROCODONE/ACET 5/325 TABLET 2 TAB PO ×2 (18:05→21:59)
[2018-08-28] MEDS: GABAPENTIN 600 MG TABLET PO (21:02)
[2018-08-28] MEDS: buPROPion SR 150 MG TAB PO (21:02)
[2018-08-28] MEDS: CARBIDOPA-LEVODOPA ER 50/200 TABLET 1 EACH PO ×2 (21:02→21:05)
[2018-08-28] MEDS: FERROUS SULFATE 325 MG TABLET PO (21:02)
[2018-08-28] MEDS: MIDODRINE HCL 5 MG TABLET PO (21:03)
[2018-08-28] MEDS: TEMAZEPAM 15 MG CAPSULE PO (21:05)
--- NOTE | 2018-08-28 22:04 | PC.NURSE ---
nurtrition pt has been able to tolerate 1/2 egg salad sandwich, pudding, some tomato soup, cranberry juice, and 2 V8s.
[2018-08-28 22:45] LABS: Free T4, Direct Thyroxine 1.15 ng/dL (0.78-2.19)
--- NOTE | 2018-08-28 23:51 | PC.NURSE ---
2300- Pt admit for freq nausea/vomiting; started on Zosyn w/ significant relief noted. Pt denies any nausea, tolerating regular diet at this time. On tele for some reported SOB on admit, reading SR at this time. D5 1/2 NS running as ordered into peripheral IV. Moving SBA to BSC; PO [place] for chronic low back pain.
[2018-08-29] VITALS (11 sets, daily range): BP systolic 67–120; BP diastolic 37–70; PULSE 62–102; RESP 16–18; TEMP 36.2–36.8; O2SAT 100
[2018-08-29] MEDS: HYDROCODONE/ACET 5/325 TABLET 2 TAB PO ×4 (03:30→20:00)
[2018-08-29] MEDS: DEXTROSE 5%-0.45% NS 1,000 ML 100 ML IV (03:34)
[2018-08-29 05:34] LABS: Hemoglobin 10.7 g/dL (12.0-16.0); Red Blood Cell Count 3.54 X10^6/uL (4.0-5.2); White Blood Cell Count 9.2 X10^3/uL (4.5-11.0)
[2018-08-29 05:35] LABS: Add Manual Diff / Slide Review YES; Mean Corpuscular HGB Conc 32.4 % (30-36); Mean Corpuscular Hemoglobin 30.1 PG (26-34); Mean Corpuscular Volume 93.1 fL (80-100); Platelet Count 266 X10^3/uL (150-400)
[2018-08-29] MEDS: LEVOTHYROXINE 75 MCG TABLET PO (06:22)
[2018-08-29] MEDS: LEVOTHYROXINE 100 MCG TABLET PO (06:22)
[2018-08-29 06:42] LABS: Anisocytosis 2+
[2018-08-29 07:39] LABS: Blood Urea Nitrogen 9 mg/dL (7-17); Calcium 8.9 mg/dL (8.4-10.2); Carbon Dioxide 11 mmol/L (22-32); Chloride 115 mmol/L (98-107); Estimated Glomerular Filt Rate > 60.0 mL/min (>60); Glucose 118 mg/dL (80-110); Potassium 3.9 mmol/L (3.4-5.1); Sodium 136 mmol/L (137-145)
[2018-08-29 07:43] LABS: HEMOLYSIS 52 (0-50)
[2018-08-29] MEDS: ONDANSETRON 4 MG/2 ML INJ IV (07:50)
--- NOTE | 2018-08-29 08:48 | CM.DANOTE ---
Addendum entered by Cele Sherwood R.N. 08/29/18 11:58: Found out that this patient is under [facility] health for nursing. Claritza from [facility] was inquiring upon status. Let her know, per Faheem in UR, she is inpatient status as of today. Let her know that care management would call and update Claritza upon discharge, and will send resumption orders, as well as discharge summary. Original Note: DCP Cont: Case received, EMR reviewed and met with patient. Obtained history from patient regarding her baseline health. DCP template completed with current information. Patient is a 73 year old female who admitted yesterday afternoon to the care of the hospitalist team. PCP: Dr. Zurita. Payer: confirmed: Medicare/[facility]. Patient came to hospital via ambulance from provider, Dr. Zurita's office. She was noted to have intractable nausea and vomiting, as well as acute dehydration. She was also noted to have non-anion azul metabolic acidosis. Patient has been here recently with similar symptoms. She has history of diabetes and neuropathy as well. At last hospital stay, she was to follow up with GI specialist. Asked patient about visit, and she stated, they couldn't find anything wrong. Met with patient in her room. Alert and oriented, having breakfast. 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 She is independent at home, uses a walker. She does not drive, since she has neuropathy. Her and her have been over 50 years, and she stated, he is very supportive, and helps me out when I'm sick. She stated that he is in good health. She is here under observation for now. P: DCP to follow closely. She may be able to go home tomorrow, according to patient. This is if she is medically stable. Cele Sherwood, GOVIND/Can Reforming Machine Operator
--- NOTE | 2018-08-29 08:58 | PM.PN.1 ---
Subjective Date Patient Seen: 08/29/18 Time Patient Seen: 09:01 Interval history: Follow-up on nausea, vomiting, abdominal pain, and UTI. Patient seen at bedside. She is doing much better today. Her nausea and vomiting has resolved, and abdominal pain has much improved although not fully resolved. No acute overnight events. She is on levofloxacin. Exam Vital Signs (past 8 hours): - 08/29/18 03:29 08/29/18 05:15 08/29/18 07:45 Temperature 98.2 F 97.7 F Pulse Rate 62 65 Respiratory Rate 16 16 Blood Pressure 110/66 104/49 L Pulse Oximetry 100 100 100 Oxygen Delivery Method Room Air Narrative Exam Narrative: general: No acute distress, AAO x3 HEENT: PERRLA bilaterally, moist mucous membranes, atraumatic, normocephalic Neck: Supple, no JVD or LAD CV: Regular rate rhythm, no murmurs or gallops Respiratory: Clear to auscultation bilaterally, no wheezes or crackles GI: Abdomen with old healing scars. Nontender to palpation. Soft. Positive bowel sounds in all quadrants, no organomegaly Extremities, no edema Neuro: AAO x3, no focal deficits Psych: Appropriate mood and behavior, able to make her own decisions Musculoskeletal: Normal range of motion in all extremities Objective Labs Result Diagrams: 08/29/18 05:22 08/29/18 07:15 Labs: Laboratory Results - last 24 hr 08/28/18 08/28/18 08/28/18 13:50 13:50 13:50 WBC 6.0 RBC 3.36 L Hgb 10.4 L Hct 31.2 L MCV 92.8 MCH 30.8 MCHC 33.2 RDW 18.2 H Plt Count 386 Neut % (Auto) 77.1 H Lymph % (Auto) 13.0 L [place] % (Auto) 8.4 Eos % (Auto) 0.7 L Baso % (Auto) 0.8 Neut # (Auto) 4600 Lymph # (Auto) 800 L [place] # (Auto) 500 Eos # (Auto) 0 Baso # (Auto) 0 Seg Neutrophils % Lymphocytes % (Manual) Atypical Lymphs % Monocytes % (Manual) Eosinophils % (Manual) RBC Morphology See below Poikilocytosis 1+ H Anisocytosis 1+ H Schistocytes 1+ H PT 12.3 INR 1.1 APTT 31 Sodium 133 L Potassium 4.4 Chloride 109 H Carbon Dioxide 12 L BUN 8 Creatinine 0.50 L Estimated GFR > 60.0 BUN/Creatinine Ratio 16.0 Glucose 87 Calcium 8.8 Total Bilirubin 0.6 AST 10 L ALT 7 L Alkaline Phosphatase 88 Total Creatine Kinase < 20 L CK-MB (CK-2) TNP CK-MB (CK-2) Rel Index TNP Troponin I < 0.012 Total Protein 5.7 L Albumin 2.8 L Globulin 2.9 Albumin/Globulin Ratio 1.0 Lipase 287 TSH Free T4 Urine Color Urine Appearance Urine pH Ur Specific Calvin Urine Protein Urine Glucose (UA) Urine Ketones Urine Occult Blood Urine Nitrate Urine Bilirubin Urine Urobilinogen Ur Leukocyte Esterase Urine RBC Urine WBC Ur Squamous Epith Cells Ur Transition Epith Cell Calcium Oxalate Crystal Urine Bacteria Hyaline Casts Ur Culture Indicated? Blood Type Antibody Screen 08/28/18 08/28/18 08/28/18 13:50 13:50 14:06 WBC RBC Hgb Hct MCV MCH MCHC RDW Plt Count Neut % (Auto) Lymph % (Auto) [place] % (Auto) Eos % (Auto) Baso % (Auto) Neut # (Auto) Lymph # (Auto) [place] # (Auto) Eos # (Auto) Baso # (Auto) Seg Neutrophils % Lymphocytes % (Manual) Atypical Lymphs % Monocytes % (Manual) Eosinophils % (Manual) RBC Morphology Poikilocytosis Anisocytosis Schistocytes PT INR APTT Sodium Potassium Chloride Carbon Dioxide BUN Creatinine Estimated GFR BUN/Creatinine Ratio Glucose Calcium Total Bilirubin AST ALT Alkaline Phosphatase Total Creatine Kinase CK-MB (CK-2) CK-MB (CK-2) Rel Index Troponin I Total Protein Albumin Globulin Albumin/Globulin Ratio Lipase TSH 10.20 H Free T4 1.15 Urine Color Yellow Urine Appearance Cloudy Urine pH 5.0 Ur Specific Calvin 1.025 Urine Protein Trace H Urine Glucose (UA) Negative Urine Ketones 2+ H Urine Occult Blood Negative Urine Nitrate Negative Urine Bilirubin Negative Urine Urobilinogen 0.2 Ur Leukocyte Esterase 1+ H Urine RBC None seen Urine WBC 10-30/hpf H Ur Squamous Epith Cells 0-1 /hpf Ur Transition Epith Cell 0-1/hpf Calcium Oxalate Crystal Few H Urine Bacteria Many (>30) H Hyaline Casts 0-1/lpf Ur Culture Indicated? Specimen cultured Blood Type A Negative Antibody Screen Negative 08/29/18 08/29/18 05:22 07:15 WBC 9.2 D RBC 3.54 L Hgb 10.7 L Hct 33.0 L MCV 93.1 MCH 30.1 MCHC 32.4 RDW 18.0 H Plt Count 266 Neut % (Auto) Not Reportable Lymph % (Auto) Not Reportable [place] % (Auto) Not Reportable Eos % (Auto) Not Reportable Baso % (Auto) Not Reportable Neut # (Auto) Lymph # (Auto) Not Reportable [place] # (Auto) Not Reportable Eos # (Auto) Baso # (Auto) Not Reportable Seg Neutrophils % 56.0 Lymphocytes % (Manual) 30.0 Atypical Lymphs % 10.0 H Monocytes % (Manual) 2.0 Eosinophils % (Manual) 2.0 RBC Morphology See below Poikilocytosis Anisocytosis 2+ H Schistocytes PT INR APTT Sodium 136 L Potassium 3.9 Chloride 115 H Carbon Dioxide 11 L BUN 9 Creatinine 0.50 L Estimated GFR > 60.0 BUN/Creatinine Ratio 18.0 Glucose 118 H Calcium 8.9 Total Bilirubin AST ALT Alkaline Phosphatase Total Creatine Kinase CK-MB (CK-2) CK-MB (CK-2) Rel Index Troponin I Total Protein Albumin Globulin Albumin/Globulin Ratio Lipase TSH Free T4 Urine Color Urine Appearance Urine pH Ur Specific Calvin Urine Protein Urine Glucose (UA) Urine Ketones Urine Occult Blood Urine Nitrate Urine Bilirubin Urine Urobilinogen Ur Leukocyte Esterase Urine RBC Urine WBC Ur Squamous Epith Cells Ur Transition Epith Cell Calcium Oxalate Crystal Urine Bacteria Hyaline Casts Ur Culture Indicated? Blood Type Antibody Screen Assessment & Plan Assessment & Plan narrative: 73yo F with PMH of persistent abdominal pain, nausea and vomiting and severe abnormal weight loss of unclear etiology presented to ED with 3 day history of intractable vomiting. Was found to have UTI and dehydration, and admitted for further management. 1. Intractable nausea and vomiting with acute dehydration, resolved -possibly due to acute UTI versus a sequelae of her chronic condition etiology of which is unknown versus non anion gap metabolic acidosis -received 2 L normal saline in the ED and currently is on maintenance D5 .45NS 150 cc/hour -continue ondansetron 4 mg IV q.4 hours as needed for nausea and vomiting -diet as tolerated -establish with GI specialty at [facility] for outpatient follow-up 2. Non-anion gap metabolic acidosis -possibly due to hyperchloremic acidosis from underlying kidney disease -does not seem to be improving with hydration -Eliceo consider Nephrology consult 3. UTI -As shown on urinalysis -continue levofloxacin at this time -pending urine cultures 4. Anemia of chronic disease -stable, current hemoglobin 10.7 -continue to monitor 5. Abnormal unexplained weight loss -as noted patient had 40-50 lb weight loss over the past 4 months -patient brought up possibility of feeding tube which can be pursued with outpatient consultation although concern would be she may not tolerate the feedings due to persistent vomiting 6. Hypothyroidism -TSH is 10.2, however free T4 is stable at 1.15 -continue levothyroxine 7. Opioid dependency for chronic back pain -continue home regimen hydrocodone 8. Depression -per patient mood stable, continue citalopram 40 mg daily Dispo: Patient is being treated for UTI with levofloxacin. Pending urine cultures. Hydrating for dehydration, monitoring for hyperchloremic metabolic acidosis. Consider Nephrology consult Quality VTE Deep Vein Thrombosis/Pulmonary Embolism Present on Admission: No
[2018-08-29] MEDS: GABAPENTIN 600 MG TABLET PO ×3 (09:59→20:06)
[2018-08-29] MEDS: buPROPion SR 150 MG TAB PO ×2 (09:59→20:05)
[2018-08-29] MEDS: MIDODRINE HCL 5 MG TABLET PO ×2 (09:59→20:06)
[2018-08-29] MEDS: FERROUS SULFATE 325 MG TABLET PO ×2 (09:59→20:05)
[2018-08-29] MEDS: ENOXAPARIN 40 MG/0.4 ML SYRINGE SUBCUT (10:00)
[2018-08-29] MEDS: ASPIRIN EC 81 MG TABLET PO (10:00)
[2018-08-29] MEDS: CITALOPRAM 20 MG TABLET 40 MG PO (10:00)
[2018-08-29 11:04] LABS: HCO3 ABG 10 mmol/L (22-26); Oxygen Saturation ABG 98 % (95-100); PO2 ABG 115 mmHg (80-100); TCO2 ABG 10 mmol/L (21-31); pH ABG 7.33 (7.35-7.45)
[2018-08-29 11:05] LABS: Fractionated Inspired Oxygen 21
[2018-08-29 12:25] LABS: Appearance Urine UA CLEAR; Bilirubin Urine UA NEGATIVE (NEGATIVE); Color Urine UA YELLOW; Glucose Urine UA NEGATIVE (Negative); Ketones Urine UA NEGATIVE (NEGATIVE); Leukocyte Esterase Urine UA 1+ (NEGATIVE); Nitrite Urine UA NEGATIVE (Negative); Occult Blood Urine UA NEGATIVE (Negative); Protein Urine UA NEGATIVE (Negative); Urobilinogen Urine UA 0.2 E.U./dL (0.2); pH Urine UA 5.5 (4.5-8.0)
[2018-08-29 12:36] LABS: Bacteria Urine None Seen; RBC Urine None Seen (0-5/HPF)
[2018-08-29 12:38] LABS: Squamous Epithelial Cell Urine 1-5 /HPF (0-5/HPF); WBC Urine 5-10/HPF (0-5/HPF)
[2018-08-29] MEDS: SODIUM BICARB 8.4% VIAL 100 MEQ in DEXTROSE 5% WATER 1,000 ML 150 MEQ IV (13:02)
[2018-08-29] MEDS: levoFLOXacin 250 MG/50 ML PIGGYBACK 50 MG IV (15:39)
--- NOTE | 2018-08-29 15:46 | CM.DPC ---
DCP Cont: Claritza came in from [facility]. She wanted to share some nursing notes from recent visits. There had been concerns about patient's increased weakness and decreased appetite, and nutritional status. It was recommended that [facility] rehab be an option at discharge before going back on home health. Let her know that this case management rn would discuss with patient. Met with patient in room. Asked her about home health nursing coming in. She did not recall recent visits, but would like them to continue to come in and check on her. She was unable to explain what nursing was doing for her. Asked her if she may want to attempt going to skilled rehab. Her inpatient status started today, and she would need to be here for a few days. She stated that if she needs to go to skilled, she would want to go to [facility], for she has a sister that is there. Let her know that this would depend upon her status here at hospital, and how she does. Went ahead and called [facility] and gave Sumaya the information on patient, in case she needs [facility] versus home health. She will review and call tomorrow with status. P: DCP to follow closely. Patient will either resume home health nursing through [facility] if she is medically stable, or if she is here a few days, can go to [facility]. Cele Sherwood RN/Dirt [employer]veler
[2018-08-29] MEDS: CARBIDOPA-LEVODOPA ER 50/200 TABLET 1 EACH PO (20:06)
[2018-08-30] VITALS (14 sets, daily range): BP systolic 62–137; BP diastolic 37–68; PULSE 62–98; RESP 16–18; TEMP 36.2–37.2; O2SAT 95–100; BMI 25.7
[2018-08-30] MEDS: OXYCODONE IR 5 MG TABLET PO ×2 (00:48→08:41)
[2018-08-30] MEDS: SODIUM BICARB 8.4% VIAL 100 MEQ in DEXTROSE 5% WATER 1,000 ML 150 MEQ IV ×2 (04:24→12:08)
[2018-08-30] MEDS: LEVOTHYROXINE 75 MCG TABLET PO (05:36)
[2018-08-30] MEDS: LEVOTHYROXINE 100 MCG TABLET PO (05:36)
[2018-08-30 05:51] LABS: Sodium Urine Random 15 mmol/L (30-90)
[2018-08-30] MEDS: FERROUS SULFATE 325 MG TABLET PO ×2 (08:33→20:36)
[2018-08-30] MEDS: ASPIRIN EC 81 MG TABLET PO (08:33)
[2018-08-30] MEDS: buPROPion SR 150 MG TAB PO ×2 (08:33→20:36)
[2018-08-30] MEDS: LOVASTATIN 10 MG TABLET 5 MG PO (08:34)
[2018-08-30] MEDS: MIDODRINE HCL 5 MG TABLET PO (08:34)
[2018-08-30] MEDS: GABAPENTIN 600 MG TABLET PO ×3 (08:34→20:35)
[2018-08-30] MEDS: CITALOPRAM 20 MG TABLET 40 MG PO (08:34)
[2018-08-30] MEDS: ENOXAPARIN 40 MG/0.4 ML SYRINGE SUBCUT (08:34)
[2018-08-30 09:07] LABS: Blood Urea Nitrogen 6 mg/dL (7-17); Calcium 8.4 mg/dL (8.4-10.2); Carbon Dioxide 20 mmol/L (22-32); Chloride 106 mmol/L (98-107); Estimated Glomerular Filt Rate > 60.0 mL/min (>60); Glucose 106 mg/dL (80-110); HEMOLYSIS < 15 (0-50); Phosphorous 2.8 mg/dL (2.8-4.1); Potassium 2.8 mmol/L (3.4-5.1); Sodium 138 mmol/L (137-145)
[2018-08-30 09:15] LABS: Basophils Absolute Auto 0 /uL (0-100); Basophils Percent Auto 0.8 % (0-2); Eosinophils Absolute Auto 200 /uL (0-450); Eosinophils Percent Auto 4.2 % (2-4); Hematocrit 30.6 % (36-46); Hemoglobin 10.3 g/dL (12.0-16.0); Lymphocytes Absolute Auto 1900 /uL (1100-4500); Lymphocytes Percent Auto 33.8 % (25-40); Mean Corpuscular HGB Conc 33.6 % (30-36); Mean Corpuscular Volume 92.3 fL (80-100); Monocytes Absolute Auto 500 /uL (0-900); Monocytes Percent Auto 8.7 % (3-14); Neutrophils Absolute Auto 3000 /uL (1500-7000); Neutrophils Percent Auto 52.5 % (50-75); Platelet Count 259 X10^3/uL (150-400); Red Blood Cell Count 3.32 X10^6/uL (4.0-5.2); Red Cell Distribution Width 17.8 % (11.6-14.8); White Blood Cell Count 5.7 X10^3/uL (4.5-11.0)
[2018-08-30 09:21] LABS: Add Manual Diff / Slide Review SLIDE REVIEW
[2018-08-30 09:27] LABS: Hypochromasia 1+; Poikilocytosis 1+
--- NOTE | 2018-08-30 09:36 | PC.NURSE ---
Addendum entered by Lacy Harrison R.N. 08/30/18 13:59: Pt othostatic when sitting up, see vitals signs, Dr Morrison informed and orders received. Original Note: Pt alert, oriented, denies nausea, ate 75% without difficulty. C/o back pain 11/06 given 5mg oxycodone.
[2018-08-30 10:30] LABS: Magnesium 1.8 mg/dL (1.6-2.3)
[2018-08-30] MEDS: POTASSIUM CHLORIDE 20 MEQ TAB 40 MEQ PO ×2 (10:40→14:28)
--- NOTE | 2018-08-30 13:29 | CM.DPC ---
DCP: continued: Case received, EMR reviewed. Discussed in Team Rounds. Dr. Ortiz and hospitalist team is following pt in the hospital. Pt's PCP: Dr. Zurita, was here for a courtesy visit but notes he appreciates that pt is being followed by the hospitalist team. DCP notes were reviewed and see that an initial referral was given to [facility] but no determination has yet been made. Noted that OT and PT had not been ordered. Discussed in Team Rounds and then with GOVIND Park. The orders are now in and pt will be seen today. Met with pt and her Gavin (Maria D). Pt does confirm that she is very agreeable to going to [facility] for rehab/recovery before home. She confirms that the nurse did wonder about a feeding tube but says that she has been able to eat today/75% of meal and so she is hopeful that a tube will not be needed. Gavin and pt confirm that pt's sister: Cindy Prasad is currently at [facility] for rehab and has been there a few times before. She would very much like to be at [facility] is the snf is indicated. Have spoken with [facility] now. She expects that [facility] will be able to accept pt if need is there. She will review the therapy notes as soon as these are in place. P: likely [facility] before home....will follow. INPT admission status as of 08/29 is noted: Pt will be able to access her Medicare/snf benefit 55 or >.
--- NOTE | 2018-08-30 13:30 | PT.IIE ---
Current Diagnoses Nausea with vomiting, unspecified (08/29/18) Surgical History (Last Reviewed 08/28/18 @ 14:29 by Raisa Kee MD) Gastric bypass status for obesity (Acute) H/O hernia repair (Acute) S/P foot surgery, right (Acute) Hx of resection of stomach (Resolved) Medical History (Last Reviewed 08/28/18 @ 14:29 by Raisa Kee MD) Chronic back pain (Chronic ~2009) Neuropathy (Chronic ~2008) Headache (Chronic ~1989) Migraines (Chronic ~1989) Restless leg syndrome (Chronic ~1989) Lupus (Chronic ~1999) Arthritis (Chronic) Anemia (Chronic ~2004) Foot pain (Chronic ~2010) Fractures (Chronic ~2011) Gastric ulcer (Chronic ~1991) History of irregular menstrual cycles (Chronic ~1989) Hyperthyroidism (Chronic ~2004) Ovarian cyst (Chronic ~1999) Painful menstrual periods (Chronic ~1978) Chicken pox (Resolved) Measles (Resolved) Mumps (Resolved) Physical Therapy Inpatient Evaluation/Re-Eval M1 PT/OT-IP Prior Functional Status Start: 08/30/18 14:53 Freq: NEEDED Status: Active Protocol: Document 08/30/18 13:30 AB (Rec: 08/30/18 16:05 [id number]) Medical Review Prior Functional Status Medical History Reviewed Yes Communication able to make needs known Mobility and Gait pt statd that she is modified independent with all mobilities and ambulation using 4WW Social History Household Members spouse Living Arrangements House Number of Floors (Floors) One Floor Number of Stairs To Enter/Railing? 2 steps to enter with R rail ascending Home Environment Standard Height Toilet Walk in Shower Home Equipment Four Wheel Walker Shower Seat with Backrest Hand Held Shower Grab Bars Near Toilet Employment Status Retired M2 PT-IP Current Condition Start: 08/30/18 15:50 Freq: NEEDED Status: Active Protocol: Document 08/30/18 13:30 AB (Rec: 08/30/18 16:05 AB [id number]) Physical Therapy Current Condition Current Condition Evaluation Date 08/30/18 Treatment Diagnosis nausea;vomiting; generalized weakness Onset Date 08/29/18 Precautions Other Precautions BP M3 PT-IP Subjective Start: 08/30/18 15:50 Freq: NEEDED Status: Active Protocol: Document 08/30/18 13:30 AB (Rec: 08/30/18 16:05 AB [id number]) Subjective Physical Therapy Visit Type Type Initial Evaluation Visit Start Time 13:30 Visit Stop Time 14:08 Total Visit Minutes 38 Number of ARCHITECTURAL DESIGN LECTURER Visits 0 Physical Therapy Visit Comments Patient Comments pt agreeable to do PT M4 PT-IP Mobility and Gait Start: 08/30/18 15:50 Freq: NEEDED Status: Active Protocol: Document 08/30/18 13:30 AB (Rec: 08/30/18 16:05 AB [id number]) PT-Bed Mobility Assessment Supine to Sit Supine to Sit Standby Assistance Sit to Supine Sit to Supine Standby Assistance Scooting Scooting to Edge of Bed Standby Assistance PT-Transfer Assessment Sit to and From Stand Sit to and from Stand Contact Guard Assistance Equipment Transfer Assistive Device Bed Rail Front Wheeled Walker Orthotic/Prosthetic Devices or Brace: No Comments Mobility Comments nurse informed PT regarding pt 's incidences of low BP. BP monitored during PT session. BP in supine: 103/60. pt completed supine to sit SBA. pt was able to is on EOB SBA. BP: 101/59. pt completed sit to stand CGA and used FWW for support. assisted pt with putting underwear on. Pt with c/o dizziness but was able to tolerate ~ 10 sec of standing and has to sit back down. BP checked in sittin/57. pt rested and agreed to get up again and tolerated ~ 5 sec of standing. BP checked: 92/ 46. BP checked again after ~ 2 min of rest: 95/56. Pt agreed to do some ambulation in room. Gait Assessment Gait Gait Assistance Required: Minimum Assistance Distance (Feet) 6 Able to Maintain Weight Bearing Status Yes During Gait Assistive Devices Assistive Device Gait Belt Front Wheeled Walker Orthotic/Prosthetic Devices or Brace: No Gait Deviations General Gait Pattern Antalgic Decreased Stride Length Decreased Feet Clearance Factors Limiting Gait Function Factors Limiting Gait Function Decreased Activity Tolerance Decreased Strength Poor Balance Comments Gait Comments pt ambulated in room using FWW min A and cues ~ 6 ft. pt presents with unsteady gait and unable to tolerate much ambulate due to c/o weakness and dizziness. BP checked after ambulation sitting on EOB: 135/87. pt requested lay back in bed. PT-Balance Assessment Sitting Balance and Reactions Static Sitting Balance Ability Good Dynamic Sitting Balance Ability Good Standing Balance and Reactions Static Standing Balance Ability Fair Dynamic Standing Balance Ability Fair Device Used FWW M5 PT-IP Objective Assessments Start: 08/30/18 15:50 Freq: NEEDED Status: Active Protocol: Document 08/30/18 13:30 AB (Rec: 08/30/18 16:05 AB [id number]) Orientation Orientation/Cognition Level of Alertness Alert Orientation Name Place Situation Language Function Ability No Deficits Noted Gross Range of Motion Lower Extremity ROM Assessment Within Functional Limits Strength Lower Extremity Strength Assessment Bilaterally Impaired Hip 3+/5 Knee 3+/5 Coordination Assessment Gross Coordination Gross Coordination WNL Sensation Assessment Sensation Gross Sensation Right LE Impaired Left LE Impaired Light Touch Impaired Proprioception (Position) Impaired Sensation Description Numbness Comments Sensation Comments pt stated that she has neuropathy from the knees down to the ankles Muscle Tone Muscle Tone WNL Yes M6 PT-IP Treatment Start: 08/30/18 15:50 Freq: NEEDED Status: Active Protocol: Document 08/30/18 13:30 AB (Rec: 08/30/18 16:05 AB [id number]) Physical Therapy Treatment Education Education Provided Safety M7 PT-IP Assessment and Plan Start: 08/30/18 15:50 Freq: NEEDED Status: Active Protocol: Document 08/30/18 13:30 AB (Rec: 08/30/18 16:05 AB [id number]) PT Summary Assessment and Plan Potential Rehabilitation Potential Fair Status of Condition at Evaluation Evolving Summary Impairments Pain ROM Strength Balance Coordination Sensation Tone Cognition Bed Mobility Transfers Gait Activity Tolerance Assessment Summary pt requiring min A with ambulation using FWW and presents with decrease activity tolerance affecting mobility. pt will require SNF rehab at this time to improve overall strength and functional independence. Goals Bed Mobility Goal Independent Transfer Goal Standby Assistance Front Wheeled Walker Gait Goal Standby Assistance Front Wheel Walker Gait Distance 150 Other Goals up/down 2 steps R rail ascending CGA Days to Meet Goals 5 Frequency of Treatment Frequency Of Treatment Once a Day Treatment Plan Physical Therapy Treatment Plan Bed Mobility Training Transfer Training Gait Training Therapeutic Exercise Balance Retraining Discharge Planning Hot or Cold Pack Neuromuscular Re-ed Coordination Retraining Manual Therapy Recommendations To Nursing Amount of Assist Needed 1 Person Assist Discharge Recommendations PT Discharge Recommendations SNF Rehab
[2018-08-30] MEDS: SODIUM CHLORIDE 0.9% 1,000 ML 1000 ML IV (14:28)
[2018-08-30] MEDS: MIDODRINE HCL 5 MG TABLET 10 MG PO ×2 (14:48→20:35)
--- NOTE | 2018-08-30 14:55 | OT.IP.TRT ---
Current Diagnoses Nausea with vomiting, unspecified (08/29/18) Occupational Therapy Treatment Note M3 OT- IP Subjective and Pain Start: 08/30/18 14:53 Freq: Status: Active Protocol: Document 08/30/18 14:53 [facility] (Rec: 08/30/18 14:54 [facility] [id number]) OT- Subjective Occupational Therapy Visit Type Type Patient Refusal Notes Pt just finished working with PT earlier and states still feeling nauseous and would rather do OT eval tomorrow. Therefore OT to check on pt tomorrow.
--- NOTE | 2018-08-30 14:59 | P.PN_ITS ---
Subjective Date Patient Seen: 08/30/18 Time Patient Seen: 14:53 Interval history: Follow-up on nausea, vomiting, abdominal pain, UTI, non anion gap metabolic acidosis. Patient seen at bedside. She is doing very well this morning. Her nausea and vomiting has completely resolved and patient is able to tolerate p.o. intake. She had 1 large loose stool this morning. She is getting her strength back, or so she feels like it. Patient did however become orthostatic when nursing staff tried to walk with her. Patient was infused with sodium bicarb yesterday, with improvement in bicarb to 20 and drop in potassium to 2.8. No other overnight events. Exam Vital Signs (past 8 hours): - 08/30/18 07:55 08/30/18 09:16 08/30/18 10:50 Temperature 97.1 F L Pulse Rate 78 Pulse Rate [Orthostatic Lying] 88 Pulse Rate [Orthostatic Sitting] 80 Respiratory Rate 18 Blood Pressure 109/61 Blood Pressure [Orthostatic Lying] 73/43 L Blood Pressure [Orthostatic Sitting] 82/51 L Pulse Oximetry 100 98 08/30/18 12:34 08/30/18 12:38 08/30/18 12:42 Temperature 98.7 F Pulse Rate 90 Pulse Rate [Orthostatic Lying] 81 90 Pulse Rate [Orthostatic Sitting] 79 98 H Respiratory Rate 16 Blood Pressure 100/51 L Blood Pressure [Orthostatic Lying] 85/46 L 100/51 L Blood Pressure [Orthostatic Sitting] 90/47 L 62/37 L Pulse Oximetry 100 Oxygen Delivery Method Room Air Oxygen Flow Rate 0 Narrative Exam Narrative: general: No acute distress, AAO x3 HEENT: PERRLA bilaterally, moist mucous membranes, atraumatic, normocephalic Neck: Supple, no JVD or LAD CV: Regular rate rhythm, no murmurs or gallops Respiratory: Clear to auscultation bilaterally, no wheezes or crackles GI: Abdomen with old healing scars. Nontender to palpation. Soft. Positive bowel sounds in all quadrants, no organomegaly Extremities, no edema Neuro: AAO x3, no focal deficits Psych: Appropriate mood and behavior, able to make her own decisions Musculoskeletal: Normal range of motion in all extremities Objective Labs Result Diagrams: 08/30/18 08:25 08/30/18 08:25 Labs: Laboratory Results - last 24 hr 08/30/18 08/30/18 08/30/18 04:20 08:25 08:25 WBC 5.7 RBC 3.32 L Hgb 10.3 L Hct 30.6 L MCV 92.3 MCH 31.0 MCHC 33.6 RDW 17.8 H Plt Count 259 Neut % (Auto) 52.5 D Lymph % (Auto) 33.8 D [place] % (Auto) 8.7 Eos % (Auto) 4.2 H Baso % (Auto) 0.8 Neut # (Auto) 3000 Lymph # (Auto) 1900 [place] # (Auto) 500 Eos # (Auto) 200 Baso # (Auto) 0 RBC Morphology See below Hypochromasia 1+ H Poikilocytosis 1+ H Sodium 138 Potassium 2.8 L Chloride 106 Carbon Dioxide 20 L BUN 6 L Creatinine 0.50 L Estimated GFR > 60.0 BUN/Creatinine Ratio 12.0 Glucose 106 Calcium 8.4 Phosphorus Magnesium Ur Random Sodium 15 L 08/30/18 08/30/18 08:25 08:25 WBC RBC Hgb Hct MCV MCH MCHC RDW Plt Count Neut % (Auto) Lymph % (Auto) [place] % (Auto) Eos % (Auto) Baso % (Auto) Neut # (Auto) Lymph # (Auto) [place] # (Auto) Eos # (Auto) Baso # (Auto) RBC Morphology Hypochromasia Poikilocytosis Sodium Potassium Chloride Carbon Dioxide BUN Creatinine Estimated GFR BUN/Creatinine Ratio Glucose Calcium Phosphorus 2.8 Magnesium 1.8 Ur Random Sodium Assessment & Plan Assessment & Plan narrative: 73yo F with PMH of persistent abdominal pain, nausea and vomiting and severe abnormal weight loss of unclear etiology presented to ED with 3 day history of intractable vomiting. Was found to have UTI and dehydration, and admitted for further management. 1. Intractable nausea and vomiting with acute dehydration, resolved -possibly due to acute UTI versus a sequelae of her chronic condition etiology of which is unknown versus non anion gap metabolic acidosis -Patient is now able to tolerate PO without any difficulties -continue ondansetron 4 mg IV q.4 hours as needed for nausea and vomiting -diet as tolerated -establish with GI specialty at [facility] for outpatient follow-up 2. Non-anion gap metabolic acidosis -possibly due to hyperchloremic acidosis from underlying kidney disease (possibly proximal renal tubular acidosis) -patient was placed on sodium bicarb drip with improvement of bicarb to 20. 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 -Nephrology consult on discharge 3. Orthostatic hypotension and dizziness -unclear etiology, as patient has been hydrated throughout the admission -given patient 1 L NS bolus -increase patient's midodrine to 10 mg 3 times a day -pending PT/OT to evaluate for possible rehab versus home 4. UTI -As shown on urinalysis -urine cultures revealed E coli sensitive to levofloxacin -continue levofloxacin IV at this time and transition to p.o. when patient is discharged 5. Anemia of chronic disease -stable, current hemoglobin 10.3 -continue to monitor 6. Abnormal unexplained weight loss -as noted patient had 40-50 lb weight loss over the past 4 months -patient is now able to tolerate p.o. intake and has good appetite -patient may need further follow-up with primary care provider should symptoms of nausea and vomiting returned and patient is unable to tolerate p.o. intake 7. Hypothyroidism -TSH is 10.2, however free T4 is stable at 1.15 -continue levothyroxine 8. Opioid dependency for chronic back pain -continue home regimen hydrocodone 9. Depression -per patient mood stable, continue citalopram 40 mg daily Dispo: Patient is being treated for UTI with levofloxacin. Non-anion gap metabolic acidosis resolved with sodium bicarb administration. Pending PT/OT for disposition Quality VTE Deep Vein Thrombosis/Pulmonary Embolism Present on Admission: No
[2018-08-30] MEDS: levoFLOXacin 250 MG/50 ML PIGGYBACK 50 MG IV (15:43)
[2018-08-30] MEDS: CITRIC ACID/SODIUM CITRATE 15 ML SOLUTION 10 ML PO (19:02)
[2018-08-30] MEDS: CARBIDOPA-LEVODOPA ER 50/200 TABLET 1 EACH PO (20:36)
[2018-08-31] VITALS (8 sets, daily range): BP systolic 112–127; BP diastolic 47–81; PULSE 64–76; RESP 16–18; TEMP 36.2–37.3; O2SAT 99–100
[2018-08-31] MEDS: CITRIC ACID/SODIUM CITRATE 15 ML SOLUTION 10 ML PO ×4 (00:01→18:03)
[2018-08-31] MEDS: OXYCODONE IR 5 MG TABLET PO ×3 (04:12→18:09)
[2018-08-31 07:51] LABS: Add Manual Diff / Slide Review NO; Basophils Absolute Auto 100 /uL (0-100); Chloride 109 mmol/L (98-107); Eosinophils Absolute Auto 300 /uL (0-450); Eosinophils Percent Auto 4.4 % (2-4); HEMOLYSIS 17 (0-50); Hematocrit 26.6 % (36-46); Hemoglobin 8.8 g/dL (12.0-16.0); Lymphocytes Absolute Auto 2400 /uL (1100-4500); Lymphocytes Percent Auto 35.9 % (25-40); Mean Corpuscular HGB Conc 33.1 % (30-36); Mean Corpuscular Hemoglobin 30.5 PG (26-34); Mean Corpuscular Volume 92.1 fL (80-100); Monocytes Absolute Auto 500 /uL (0-900); Monocytes Percent Auto 8.1 % (3-14); Neutrophils Absolute Auto 3300 /uL (1500-7000); Neutrophils Percent Auto 50.6 % (50-75); Platelet Count 244 X10^3/uL (150-400); Red Blood Cell Count 2.89 X10^6/uL (4.0-5.2); Red Cell Distribution Width 17.9 % (11.6-14.8); White Blood Cell Count 6.6 X10^3/uL (4.5-11.0)
[2018-08-31 07:52] LABS: Blood Urea Nitrogen 8 mg/dL (7-17); Calcium 8.1 mg/dL (8.4-10.2); Carbon Dioxide 22 mmol/L (22-32); Estimated Glomerular Filt Rate > 60.0 mL/min (>60); Glucose 88 mg/dL (80-110); Potassium 4.2 mmol/L (3.4-5.1); Sodium 139 mmol/L (137-145)
--- NOTE | 2018-08-31 08:21 | P.PN_ITS ---
Subjective Date Patient Seen: 08/31/18 Time Patient Seen: 08:18 Interval history: Follow-up on nausea, vomiting, abdominal pain, UTI, non anion gap metabolic acidosis, and orthostatic hypotension. Patient seen at bedside. She states her nausea and vomiting have resolved. However patient became orthostatic while ambulating yesterday, with significant drop in blood pressures. She was dizzy at that time. 1L bolus was administered and patient's midodrine was increased. Over night patient was ambulating to bathroom and experienced similar episode. Again, she was orthostatic and dizzy, and states she nearly lost her balance. Exam Vital Signs (past 8 hours): - 08/31/18 04:00 Temperature 99.2 F Pulse Rate 64 Respiratory Rate 16 Blood Pressure 112/65 Pulse Oximetry 99 Oxygen Delivery Method Room Air Oxygen Flow Rate 0 Narrative Exam Narrative: GENERAL: No acute distress, AAO x3 HEENT: PERRLA bilaterally, moist mucous membranes, atraumatic, normocephalic Neck: Supple, no JVD or LAD CV: Regular rate rhythm, no murmurs or gallops Respiratory: Clear to auscultation bilaterally, no wheezes or crackles GI: Abdomen with old healing scars. Nontender to palpation. Soft. Positive bowel sounds in all quadrants, no organomegaly Extremities, no edema Neuro: AAO x3, no focal deficits Psych: Appropriate mood and behavior, able to make her own decisions Musculoskeletal: Normal range of motion in all extremities Objective Labs Result Diagrams: 08/31/18 07:10 08/31/18 07:10 Labs: Laboratory Results - last 24 hr 08/30/18 08/30/18 08/30/18 08:25 08:25 08:25 WBC 5.7 RBC 3.32 L Hgb 10.3 L Hct 30.6 L MCV 92.3 MCH 31.0 MCHC 33.6 RDW 17.8 H Plt Count 259 Neut % (Auto) 52.5 D Lymph % (Auto) 33.8 D [place] % (Auto) 8.7 Eos % (Auto) 4.2 H Baso % (Auto) 0.8 Neut # (Auto) 3000 Lymph # (Auto) 1900 [place] # (Auto) 500 Eos # (Auto) 200 Baso # (Auto) 0 RBC Morphology See below Hypochromasia 1+ H Poikilocytosis 1+ H Sodium 138 Potassium 2.8 L Chloride 106 Carbon Dioxide 20 L BUN 6 L Creatinine 0.50 L Estimated GFR > 60.0 BUN/Creatinine Ratio 12.0 Glucose 106 Calcium 8.4 Phosphorus 2.8 Magnesium 08/30/18 08/31/18 08/31/18 08:25 07:10 07:10 WBC 6.6 RBC 2.89 L Hgb 8.8 L Hct 26.6 L MCV 92.1 MCH 30.5 MCHC 33.1 RDW 17.9 H Plt Count 244 Neut % (Auto) 50.6 Lymph % (Auto) 35.9 [place] % (Auto) 8.1 Eos % (Auto) 4.4 H Baso % (Auto) 1.0 Neut # (Auto) 3300 Lymph # (Auto) 2400 [place] # (Auto) 500 Eos # (Auto) 300 Baso # (Auto) 100 RBC Morphology Hypochromasia Poikilocytosis Sodium 139 Potassium 4.2 D Chloride 109 H Carbon Dioxide 22 BUN 8 Creatinine 0.50 L Estimated GFR > 60.0 BUN/Creatinine Ratio 16.0 Glucose 88 Calcium 8.1 L Phosphorus Magnesium 1.8 Assessment & Plan Assessment & Plan narrative: 73yo F with PMH of persistent abdominal pain, nausea and vomiting and severe abnormal weight loss of unclear etiology presented to ED with 3 day history of intractable vomiting. Was found to have UTI and dehydration, and admitted for further management. 1. Intractable nausea and vomiting with acute dehydration, resolved -possibly due to acute UTI versus a sequelae of her chronic condition etiology of which is unknown versus non anion gap metabolic acidosis -Patient is now able to tolerate PO without any difficulties -diet as tolerated 2. Non-anion gap metabolic acidosis, resolved -possibly due to hyperchloremic acidosis from underlying kidney disease (possibly proximal renal tubular acidosis) -patient was given sodium bicarb drip while inpatient with improvement of bicarb to 20. 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 Orthostatic hypotension and dizziness -Continues to have episodes of orthostatic hypotension while ambulating -medications reviewed: patient is on carbidopa-levodopa for restless leg syndrome, which she has been getting daily while inpatient -stop carbidopa-levodopa -continue midodrine to 10 mg 3 times a day -per PT/OT, patient needs rehab. Pending discharge dispo 4. UTI -As shown on urinalysis -urine cultures revealed E coli sensitive to levofloxacin -continue levofloxacin IV at this time and transition to p.o. when patient is discharged 5. Anemia of chronic disease -Hb dropped to 8.8 this am but seems like patient is also becoming fluid overloaded -continue to monitor at this time- no evidence of bleeding -No more IVF administration 6. Abnormal unexplained weight loss -as noted patient had 40-50 lb weight loss over the past 4 months -patient is now able to tolerate p.o. intake and has good appetite -patient may need further follow-up with primary care provider should symptoms of nausea and vomiting returned and patient is unable to tolerate p.o. intake 7. Hypothyroidism -TSH is 10.2, however free T4 is stable at 1.15 -continue levothyroxine 8. Opioid dependency for chronic back pain -continue home regimen hydrocodone 9. Depression -per patient mood stable, continue citalopram 40 mg daily Dispo: Patient is being treated for UTI with levofloxacin. Non-anion gap metabolic acidosis resolved with sodium bicarb administration. Pending Rehab Quality VTE Deep Vein Thrombosis/Pulmonary Embolism Present on Admission: No
[2018-08-31] MEDS: MIDODRINE HCL 5 MG TABLET 10 MG PO ×3 (09:00→20:40)
[2018-08-31] MEDS: GABAPENTIN 600 MG TABLET PO ×3 (09:01→20:39)
[2018-08-31] MEDS: CITALOPRAM 20 MG TABLET 40 MG PO (09:01)
[2018-08-31] MEDS: ENOXAPARIN 40 MG/0.4 ML SYRINGE SUBCUT (09:01)
[2018-08-31] MEDS: ASPIRIN EC 81 MG TABLET PO (09:01)
[2018-08-31] MEDS: LEVOTHYROXINE 75 MCG TABLET PO (09:01)
[2018-08-31] MEDS: buPROPion SR 150 MG TAB PO ×2 (09:01→20:40)
[2018-08-31] MEDS: LEVOTHYROXINE 100 MCG TABLET PO (09:01)
[2018-08-31] MEDS: FERROUS SULFATE 325 MG TABLET PO ×2 (09:01→20:40)
[2018-08-31] MEDS: POTASSIUM CHLORIDE 10 MEQ TAB PO (09:01)
--- NOTE | 2018-08-31 11:20 | PT.IPTN ---
Current Diagnoses Nausea with vomiting, unspecified (08/29/18) Physical Therapy Treatment Note M2 PT-IP Current Condition Start: 08/30/18 15:50 Freq: NEEDED Status: Active Protocol: Document 08/30/18 13:30 AB (Rec: 08/30/18 16:05 AB [id number]) Physical Therapy Current Condition Current Condition Evaluation Date 08/30/18 Treatment Diagnosis nausea;vomiting; generalized weakness Onset Date 08/29/18 Precautions Other Precautions BP M3 PT-IP Subjective Start: 08/30/18 15:50 Freq: NEEDED Status: Active Protocol: Document 08/31/18 11:20 GGD (Rec: 08/31/18 12:16 GGD [email or web address]) Subjective Physical Therapy Visit Type Type Treatment Note Visit Start Time 11:00 Visit Stop Time 11:20 Total Visit Minutes 20 Number of WHEAT INSPECTOR Visits 1 Physical Therapy Visit Comments Patient Comments Pt want's to walk. M4 PT-IP Mobility and Gait Start: 08/30/18 15:50 Freq: NEEDED Status: Active Protocol: Document 08/31/18 11:20 GGD (Rec: 08/31/18 12:16 GGD [email or web address]) PT-Transfer Assessment Sit to and From Stand Sit to and from Stand Contact Guard Assistance Equipment Transfer Assistive Device Front Wheeled Walker Orthotic/Prosthetic Devices or Brace: No Transfers Transfer Destination Chair Comments Mobility Comments BP after ambulation 86/50 Gait Assessment Gait Gait Assistance Required: Standby Assistance Contact Guard Assist Distance (Feet) 40 Able to Maintain Weight Bearing Status Yes During Gait Assistive Devices Assistive Device Gait Belt Front Wheeled Walker Orthotic/Prosthetic Devices or Brace: No Gait Deviations General Gait Pattern Antalgic Decreased Stride Length Decreased Feet Clearance Factors Limiting Gait Function Factors Limiting Gait Function Decreased Activity Tolerance Decreased Strength Poor Balance M5 PT-IP Objective Assessments Start: 08/30/18 15:50 Freq: NEEDED Status: Active Protocol: Document 08/30/18 13:30 AB (Rec: 08/30/18 16:05 AB [id number]) Orientation Orientation/Cognition Level of Alertness Alert Orientation Name Place Situation Language Function Ability No Deficits Noted Gross Range of Motion Lower Extremity ROM Assessment Within Functional Limits Strength Lower Extremity Strength Assessment Bilaterally Impaired Hip 3+/5 Knee 3+/5 Coordination Assessment Gross Coordination Gross Coordination WNL Sensation Assessment Sensation Gross Sensation Right LE Impaired Left LE Impaired Light Touch Impaired Proprioception (Position) Impaired Sensation Description Numbness Comments Sensation Comments pt stated that she has neuropathy from the knees down to the ankles Muscle Tone Muscle Tone WNL Yes M6 PT-IP Treatment Start: 08/30/18 15:50 Freq: NEEDED Status: Active Protocol: Document 08/30/18 13:30 AB (Rec: 08/30/18 16:05 AB [id number]) Physical Therapy Treatment Education Education Provided Safety M7 PT-IP Assessment and Plan Start: 08/30/18 15:50 Freq: NEEDED Status: Active Protocol: Document 08/31/18 11:20 GGD (Rec: 08/31/18 12:16 GGD [email or web address]) PT Summary Assessment and Plan Summary Assessment Summary Pt was CGA with gait. She did have C/O lightheadedness with gait after 20 feet. She had decrease in BP that limit her tolerance to activity. Frequency of Treatment Frequency Of Treatment Once a Day Treatment Plan Physical Therapy Treatment Plan Bed Mobility Training Transfer Training Gait Training Therapeutic Exercise Balance Retraining Discharge Planning Hot or Cold Pack Neuromuscular Re-ed Coordination Retraining Manual Therapy Recommendations To Nursing Amount of Assist Needed 1 Person Assist Discharge Recommendations PT Discharge Recommendations SNF Rehab
[2018-08-31] MEDS: ACETAMINOPHEN 325 MG TABLET 975 MG PO ×2 (12:08→18:18)
--- NOTE | 2018-08-31 13:47 | CM.DPC ---
Addendum entered by Celine Jones LPN 08/31/18 14:03: Met with pt as planned. Pt notes she is beginning to feel much better and is looking forward to going to [facility] for rehab and then getting home to her . She is hoping for a bed in same room as her sister. It will be such a treat for us both. [facility] is updated. Confirms acceptance and will see that pt rooms with her sister. FCC when stable for same. Original Note: DCP: continued: case discussed in Team Rounds this morning. Pt is still not medically stable for d/c and Dr. Ortiz is making medication changes. P: remains FCC at d/c. September had indicated likely acceptance. Left her a vm now to confirm same. Expect pt will d/c in next one to two days: Will check in with her and issues: TIMMY #2 (as per weekend protocol).
--- NOTE | 2018-08-31 15:53 | OT.IP.EVAL ---
Current Diagnoses Nausea with vomiting, unspecified (08/29/18) Past Medical History (Last Reviewed 08/28/18 @ 14:29 by Raisa Kee MD) Chronic back pain (Chronic ~2009) Neuropathy (Chronic ~2008) Headache (Chronic ~1989) Migraines (Chronic ~1989) Restless leg syndrome (Chronic ~1989) Lupus (Chronic ~1999) Arthritis (Chronic) Anemia (Chronic ~2004) Foot pain (Chronic ~2010) Fractures (Chronic ~2011) Gastric ulcer (Chronic ~1991) History of irregular menstrual cycles (Chronic ~1989) Hyperthyroidism (Chronic ~2004) Ovarian cyst (Chronic ~1999) Painful menstrual periods (Chronic ~1978) Chicken pox (Resolved) Measles (Resolved) Mumps (Resolved) Surgical History (Last Reviewed 08/28/18 @ 14:29 by Raisa Kee MD) Gastric bypass status for obesity (Acute) H/O hernia repair (Acute) S/P foot surgery, right (Acute) Hx of resection of stomach (Resolved) Occupational Therapy Inpatient Evaluation/Re-Eval M1 PT/OT-IP Prior Functional Status Start: 08/30/18 14:53 Freq: NEEDED Status: Active Protocol: Document 08/31/18 15:20 CGR (Rec: 08/31/18 15:53 CGR [email or web address]) Medical Review Prior Functional Status Medical History Reviewed Yes Communication able to make needs known Mobility and Gait pt statd that she is modified independent with all mobilities and ambulation using 4WW Social History Household Members spouse children Living Arrangements House Number of Floors (Floors) One Floor Number of Stairs To Enter/Railing? 2 steps to enter with R rail ascending Home Environment Standard Height Toilet Walk in Shower Home Equipment Four Wheel Walker Bedside Commode Shower Seat with Backrest Hand Held Shower Grab Bars Near Toilet Employment Status Retired Additional Social History Comment Pt states she lives with her and adult son. M2 OT-IP Current Condition Start: 08/30/18 14:53 Freq: Status: Active Protocol: Document 08/31/18 15:20 CGR (Rec: 08/31/18 15:53 CGR [email or web address]) Occupational Therapy Current Condition Current Condition Evaluation Date 08/31/18 Treatment Diagnosis Orthostatic, acute GI bleed, dehydration, UTI Diagnosis Onset Date 08/29/18 Post Operative Precautions Other Precautions Orthostatics M3 OT- IP Subjective and Pain Start: 08/30/18 14:53 Freq: Status: Active Protocol: Document 08/31/18 15:20 CGR (Rec: 08/31/18 15:53 CGR [email or web address]) OT- Subjective Occupational Therapy Visit Type Type Initial Evaluation Visit Start Time 14:57 Visit Stop Time 15:20 Total Visit Minutes 23 Occupational Therapy Visit Comments Patient Comments I feel better after my nap OT Pain Assessment Pain When Pain Assessed At Rest Pain Present Pain Present Pain Reported Location Back Intensity 6 Scale Used Numeric (1 - 10) M4 OT- IP ADL's Start: 08/30/18 14:53 Freq: Status: Active Protocol: Document 08/31/18 15:20 CGR (Rec: 08/31/18 15:53 CGR [email or web address]) OT ADL-Grooming Comments OT Grooming Comments Pt declined, already performed OT ADL-Oral Care Comments Oral Care Comments Pt declined, already performed OT ADL-Dressing General Eval Lower Body Dressing Ability Total Assistance OT ADL-Toileting Comments OT Toileting Comments Pt declined, states she just returned from bathroom. M5 OT- IP IADL's Start: 08/30/18 14:53 Freq: Status: Active Protocol: Document 08/31/18 15:20 CGR (Rec: 08/31/18 15:53 CGR [email or web address]) OT-Instrumental Activities of Daily Living Deficits IADL Deficits Identified Deficits Home Safety Awareness Awareness of Need for Assistance at Home Good Awareness Ability to Problem Solve Emergency Able to Problem Solve Situations Medication Management Medication Management Caregiver Administers Money Management Money Management Caregiver Provides Assistance Meal Preparation Meal Preparation Caregiver Provides Assist Prehemmer Prehemmer Caregiver Provides Assist Driving Driving Caregiver Provides Supervision M6 OT- IP Functional Cognition Start: 08/30/18 14:53 Freq: Status: Active Protocol: Document 08/31/18 15:20 CGR (Rec: 08/31/18 15:53 CGR [email or web address]) Cognitive Factors Limiting Selfcare Function Cognitive Ability Level of Alertness Confusional State Patient Orientation Name Attention Span Ability Capable of Focused Attention Capable of Sustained Attention Ability to Follow Commands Able to Follow One Step Commands Memory Description Immediate Intact Short Term Impaired Working Intact Problem Solving Ability Needs Assist to Identify Solutions Cognitive Comments Cognitive Assessment Comments Pt unable to state date or location. Pt appears to be cognitively intact but upon further discussion demonstrates some deficits. Recommend cog assessment at next session. OT- Vision and Hearing OT- Hearing Assessment OT- Hearing Assessment WFL OT- Vision Assessment Visual Acuity WFL Visual Attentiveness WFL Occular Pursuits WFL Visual Convergence WFL Visual [place] WFL M7 OT- IP Mobility and Balance Start: 08/30/18 14:53 Freq: Status: Active Protocol: Document 08/31/18 15:20 CGR (Rec: 08/31/18 15:53 CGR [email or web address]) OT- Gait Assessment Comments Gait Ability Comments Pt declines at this time. OT- Balance Assessment Sitting Balance and Reactions Static Sitting Balance Ability Good Dynamic Sitting Balance Ability Good Standing Balance and Reactions Static Standing Balance Ability Good Dynamic Standing Balance Ability Good M8 OT- IP Objective Assessments Start: 08/30/18 14:53 Freq: Status: Active Protocol: Document 08/31/18 15:20 CGR (Rec: 08/31/18 15:53 CGR [email or web address]) OT Gross Range of Motion Upper Extremity Range of Motion Assessment Within Functional Limits OT Strength Upper Extremity Strength Assessment Within Functional Limits Comments Strength Comments grossly 4/5 thoughout OT- Coordination Assessment Upper Extremity Finger to Nose Test Within Functional Limits Finger Tapping Test Within Functional Limits Comments Coordination Comments WFL for age but noted BUE shaking. OT-Muscle Tone Assessment Muscle Tone WNL Yes OT Sensation Assessment Comments Summary Comments Pt states WFL Edema Edema Present Edema Comments To BLE. M9 OT- IP Assessment and Plan Start: 08/30/18 14:53 Freq: Status: Active Protocol: Document 08/31/18 15:20 CGR (Rec: 08/31/18 15:53 CGR [email or web address]) OT Summary Assessment and Plan Potential Rehabilitation Potential Good Analytic Complexity at Evaluation Moderate Summary OT Impairments Pain Balance Functional Cognition Functional Mobility Grooming Dressing Toileting Bathing Toilet Transfers Shower Transfers Assessment Summary Pt presents with declines to all ADLs d/t her orthostatics. Educated at length on home safety and equipment needs. Recommend cog assessment at next session. Goals Dressing Goal Independent Toileting Goal Independent Bathing Goal Independent Toilet Transfer Goal Independent Shower Transfer Goal Independent Days to Meet Goals 10 Frequency of Treatment Frequency Of Treatment Once a Day Treatment Plan OT Treatment Plan ADL Training Functional Cognition Training Functional Mobility Patient/Family Education Discharge Planning Discharge Recommendations OT Discharge Recommendations SNF Rehab Home Equipment Needs TBD by SNF
[2018-08-31] MEDS: levoFLOXacin 250 MG/50 ML PIGGYBACK 50 MG IV (17:00)
[2018-09-01] MEDS: CITRIC ACID/SODIUM CITRATE 15 ML SOLUTION 10 ML PO ×3 (00:11→11:42)
[2018-09-01 00:15] VITALS: O2SAT 99
[2018-09-01 05:03] VITALS: BP 122/60; PULSE 69; RESP 16; TEMP 36.1; O2SAT 100
[2018-09-01] MEDS: LEVOTHYROXINE 100 MCG TABLET PO (05:48)
[2018-09-01] MEDS: LEVOTHYROXINE 75 MCG TABLET PO (05:48)
[2018-09-01] MEDS: OXYCODONE IR 5 MG TABLET PO ×2 (06:01→11:43)
[2018-09-01 07:21] LABS: Add Manual Diff / Slide Review NO; Basophils Absolute Auto 0 /uL (0-100); Basophils Percent Auto 0.8 % (0-2); Eosinophils Absolute Auto 300 /uL (0-450); Eosinophils Percent Auto 4.8 % (2-4); Hemoglobin 8.9 g/dL (12.0-16.0); Lymphocytes Absolute Auto 1800 /uL (1100-4500); Mean Corpuscular Hemoglobin 30.6 PG (26-34); Mean Corpuscular Volume 92.5 fL (80-100); Monocytes Absolute Auto 400 /uL (0-900); Monocytes Percent Auto 6.7 % (3-14); Neutrophils Absolute Auto 4000 /uL (1500-7000); Neutrophils Percent Auto 60.7 % (50-75); Platelet Count 281 X10^3/uL (150-400); Red Blood Cell Count 2.92 X10^6/uL (4.0-5.2); Red Cell Distribution Width 17.5 % (11.6-14.8); White Blood Cell Count 6.6 X10^3/uL (4.5-11.0)
[2018-09-01 07:25] VITALS: BP 131/74; PULSE 69; RESP 16; TEMP 36.5; O2SAT 100
[2018-09-01 07:26] LABS: BUN Creatinine Ratio 27.5 (6-22); Blood Urea Nitrogen 11 mg/dL (7-17); Calcium 8.2 mg/dL (8.4-10.2); Carbon Dioxide 23 mmol/L (22-32); Chloride 106 mmol/L (98-107); Estimated Glomerular Filt Rate > 60.0 mL/min (>60); Glucose 99 mg/dL (80-110); HEMOLYSIS < 15 (0-50); Potassium 4.2 mmol/L (3.4-5.1); Sodium 137 mmol/L (137-145)
[2018-09-01 07:41] VITALS: O2SAT 100
[2018-09-01] MEDS: FERROUS SULFATE 325 MG TABLET PO (08:36)
[2018-09-01] MEDS: POTASSIUM CHLORIDE 10 MEQ TAB PO (08:36)
[2018-09-01] MEDS: LOVASTATIN 10 MG TABLET 5 MG PO (08:36)
[2018-09-01] MEDS: GABAPENTIN 600 MG TABLET PO ×2 (08:36→14:23)
[2018-09-01] MEDS: ENOXAPARIN 40 MG/0.4 ML SYRINGE SUBCUT (08:36)
[2018-09-01] MEDS: CITALOPRAM 20 MG TABLET 40 MG PO (08:36)
[2018-09-01] MEDS: buPROPion SR 150 MG TAB PO (08:36)
[2018-09-01] MEDS: ASPIRIN EC 81 MG TABLET PO (08:36)
[2018-09-01] MEDS: MIDODRINE HCL 5 MG TABLET 10 MG PO ×2 (08:37→14:23)
[2018-09-01] MEDS: ACETAMINOPHEN 325 MG TABLET 975 MG PO (08:38)
--- NOTE | 2018-09-01 10:16 | P.DS_ITS ---
History of Present Illness Date Patient Seen: 09/12/18 Chief complaint: Not eating, weak, sob, dizzy Narrative: Written by Dr. Chavez: Patient is 73-year-old female with history of unexplained abdominal pain, nausea and vomiting, abnormal weight loss presented to the hospital with 3 day history of intractable vomiting. Patient has history of gastric bypass surgery over 30 years ago. She started having GI symptoms about 4 months ago with complaints of persistent abdominal pain, nausea and vomiting, poor appetite and weight loss. She had a normal outpatient EGD on 06/04/2018 and an inpatient EGD as well as colonoscopy at [facility] on 08/05/2018. She had extensive inpatient workup at [facility] in May to June of this year including repeat CT scan imaging, HIDA scan, Gastrografin study to rule out a surgical anastomosis leak or any obstruction. Etiology of her symptoms has remained unknown. She was supposed to establish with GI at [facility] but somehow that never transpired. Since her last hospital discharge in June she has had periodic nausea and vomiting. She states the abdominal pain has not been significant. She has continued to have extremely poor appetite with ongoing weight loss and states she has lost 40-50 lb since onset of her GI symptoms 4 months ago. About 3 days ago she started having more intractable vomiting, mainly dry heaves, and unable to keep down any food or much liquids. Also later she noticed some increase in her chronic lower back pain and urinary frequency which in the past she has associated with UTI. She has not had fevers or rigors. She does have chronic back pain condition with opioid dependency on hydrocodone. She has a history of diabetes and was taken off of glimepiride earlier this year due to low blood sugars associated with weight loss. She has history of RLS for which she is on carbidopa levodopa. She also has history of depression managed on citalopram. Discharge Providers Date of admission: 08/29/18 10:42 Discharge Date: 09/01/18 Primary care physician: Corby Zurita MD Consults: 08/28/18 17:18 Consult to Dietitian, Adult Routine Comment: Reason For Exam: decreased po intake for months Consult to Pastoral Services Routine Comment: would like a visit 08/30/18 10:03 Consult to Occupational Therapy Evaluate & Treat Comment: dizziness, instability Physician Instructions: Evaluate and treat Consult to Physical Therapy Evaluate & Treat Comment: dizziness, instability Physician Instructions: Evaluate and Treat Discharge provider: Samreen Johnson DO Summary Discharge Diagnosis: 1. Intractable nausea and vomiting with secondary acute dehydration, present on admission. Resolved. 2. Non-anion gap metabolic acidosis, present on admission. Resolved. 3. Orthostatic hypotension and dizziness, present on admission. Resolved. 4. Acute E.coli UTI, present on admission. Resolving. 5. Anemia of chronic disease, present admission. Stable. 6. Abnormal unexplained weight loss, acute on chronic, present on admission. Active. 7. Hypothyroidism, chronic, present on admission. Stable. 8. Chronic opiate dependency due to chronic back pain, present on admission. Stable. 9. Depression, chronic, present on admission. Stable. Hospital Course: Veronique Gould is a 73-year-old female with a past medical history significant for persistent abdominal pain, nausea and vomiting and severe abnormal weight loss of unclear etiology who presented to ED with 3 day history of intractable vomiting. Was found to have UTI and dehydration, and admitted for further management. 1. Intractable nausea and vomiting with secondary acute dehydration, present on admission. Resolved. -Secondary to acute UTI and resolved with treatment. Patient may also have chronic nausea and vomiting from gastroparesis related to narcotics and non-anion gap metabolic acidosis from possible RTA. -Continue diet as tolerated. 2. Non-anion gap metabolic acidosis, present on admission. Resolved. -Possibly due to hyperchloremic acidosis from underlying kidney disease (possibly proximal renal tubular acidosis). -Patient was given sodium bicarb gtt while inpatient with improvement of bicarb to 20. 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 -Started and discharged on sodium citrate 10 mL 4 times a day and potassium chloride 10 mg daily and recommend outpatient nephrology consult for further evaluation of RTA and treatment. 3. Orthostatic hypotension and dizziness, present on admission. Resolved. -Patient had several episodes of symptomatic orthostatic hypotension with ambulation that have no resolved. -Carbidopa levodopa for restless legs syndrome was discontinued, midodrine was increased from 5 mg twice daily to 10 mg 3 times daily, and she was given IV fluids. -Continue midodrine 10 mg 3 times a day and compression stockings. Recommend monitoring blood pressure closely outpatient and titrating down on midodrine if patient becomes hypertensive. -Per physical and occupation therapy evaluation and treatment patient requires long term rehab. 4. Acute E.coli UTI, present on admission. Resolving. -Urine grew E. coli sensitive to levofloxacin. -Continued levofloxacin 250 mg IV daily and discharged on levofloxacin 250 mg PO daily for 3 additional days to complete 7 day antibiotic course. 5. Anemia of chronic disease, present admission. Stable. -Hgb dropped to 8.8 likely due to hemodilution from fluid overload. -No overt signs bleeding and H&H stable. Continue to monitor closely. 6. Abnormal unexplained weight loss, acute on chronic, present on admission. Active. -Patient noted 40-50 lbs. weight loss over the past 4 months. -Patient is now able to tolerate PO intake and has good appetite. -Patient will need further follow-up with primary care provider should symptoms of nausea and vomiting return and patient is unable to tolerate PO intake. 7. Hypothyroidism, chronic, present on admission. Stable. -TSH is 10.2 and free T4 1.15 indicative of subclinical hypothyroidism for which in case of unexplained weight loss would not treat. -Continued levothyroxine 175 mcg daily. 8. Chronic opiate dependency due to chronic back pain, present on admission. Stable. -Continued home regimen hydrocodone. 9. Depression, chronic, present on admission. Stable. -Mood stable. -Continued citalopram 40 mg daily and bupropion 150 mg twice daily. Exam Vital Signs (past 8 hours): - 09/01/18 05:03 09/01/18 07:25 09/01/18 07:41 Temperature 97.0 F L 97.7 F Pulse Rate 69 69 Respiratory Rate 16 16 Blood Pressure 122/60 131/74 Pulse Oximetry 100 100 100 Oxygen Delivery Method Room Air Oxygen Flow Rate 0 Narrative Exam Narrative: General: Elderly female lying in bed and in no acute distress, well-developed, well-nourished, appropriately interactive. HEENT: Normocephalic, atraumatic. External ears without defect. Pupils equal, round, and reactive to light. Anicteric sclerae, moist conjunctivae, and no lid lag. Oropharynx free of erythema and cobble stoning with moist mucosa. Neck: Supple with full range of motion. No lymphadenopathy or thyromegaly. Cardiovascular: Regular rate and rhythm without murmurs, rubs, or gallops appr eciated Pulmonary: Clear to auscultation bilaterally without crackles, wheezes, or rhonchi. Normal respiratory effort with no use of accessory muscles. Abdomen: Soft, bowel sounds present, nontender, nondistended. No hepatosplenomegaly or masses appreciated. Extremities: No clubbing or cyanosis. Mild trace bipedal edema. Skin: Normal temperature, turgor, and texture; no rash, ulcers, or subcutaneous nodules appreciated. Neurological: Cranial nerves grossly intact. Psychiatric: Normal mood and affect. Alert and oriented to person, place, and time. Objective Labs Result Diagrams: 09/01/18 06:55 09/01/18 06:55 Labs: Laboratory Results - last 24 hr 09/01/18 09/01/18 06:55 06:55 WBC 6.6 RBC 2.92 L Hgb 8.9 L Hct 27.0 L MCV 92.5 MCH 30.6 MCHC 33.0 RDW 17.5 H Plt Count 281 Neut % (Auto) 60.7 Lymph % (Auto) 27.0 Norton % (Auto) 6.7 Eos % (Auto) 4.8 H Baso % (Auto) 0.8 Neut # (Auto) 4000 Lymph # (Auto) 1800 Norton # (Auto) 400 Eos # (Auto) 300 Baso # (Auto) 0 Sodium 137 Potassium 4.2 Chloride 106 Carbon Dioxide 23 BUN 11 Creatinine 0.40 L Estimated GFR > 60.0 BUN/Creatinine Ratio 27.5 H Glucose 99 Calcium 8.2 L Discharge Plan Discharge Plan Patient Disposition: SNF Transfer to: [facility] Under care of provider: Dr. Fournier Transportation: Facility vehicle Labs: BMP in 1 week to check potassium level I certify the postop hospital long term care is medically necessary on a continuing basis for any conditions for which he/ she received care during this hospitalization.: Yes The receiving facility has agreed to accept transfer and provide medical agustina atment.: Yes Discharge Med Rec/Prescriptions Prescriptions: New potassium chloride [Klor-Con M10] 10 mEq Tablet,Er Particles/Crystals 10 meq PO DAILYCC Qty: 30 RF: 0 levofloxacin 250 mg tablet 250 mg PO DAILY Qty: 3 RF: 0 sodium citrate-citric acid 500-334 mg/5 mL Solution 10 ml PO Q6HR Qty: 15 RF: 0 Continued levothyroxine [Synthroid] 175 mcg tablet 175 mcg PO DAILY Qty: 90 RF: 1 megestrol 400 mg/10 mL (10 mL) suspension 800 mg PO DAILY Qty: 400 RF: 0 blood-glucose meter [Blood Glucose Monitoring] kit .ROUTE .MEDSUPPLY Qty: 1 RF: 0 Blood Glucose Test strip .ROUTE .MEDSUPPLY Qty: 100 RF: 3 lancets misc .ROUTE .MEDSUPPLY Qty: 100 RF: 3 citalopram 20 mg tablet 40 mg PO DAILY Qty: 60 RF: 5 Walker: Four Wheel 1 u miscellaneous DIRECTED RF: 0 Diabetic Shoes 1 pkg miscellaneous DIRECTED RF: 0 gabapentin 600 mg tablet 600 - 1,200 mg PO TID RF: 0 lovastatin 10 mg tablet 5 mg PO Q OTHER DAY RF: 0 aspirin 81 mg Tablet,Delayed Release (Dr/Ec) 81 mg PO DAILY RF: 0 ucajumzqyq-iezxafonllwew-uujv 50-325-40 mg tablet 1 tab PO PRN PRN (Reason: Headache) RF: 0 hydrocodone-acetaminophen 5-325 mg tablet 1 - 2 tab PO QID PRN (Reason: Back Pain) Qty: 20 RF: 0 temazepam 15 mg capsule 15 mg PO BEDTIME PRN (Reason: Sleep) Qty: 20 RF: 0 bupropion HCl 150 mg tablet sustained-release 12 hr 150 mg PO BID RF: 0 ferrous sulfate [FeroSul] 325 mg (65 mg iron) Tablet 1 tab PO BID RF: 0 Changed midodrine 5 mg tablet 10 mg PO TID Qty: 0 RF: 0 Discontinued carbidopa-levodopa 50-200 mg tablet extended release 1 tab PO 5XD PRN (Reason: restless legs) RF: 0 Other Ambulatory Orders: Basic Metabolic Panel (Routine) Timeframe: 1 Week Location: Laboratory Ordered By: Samreen Johnson Follow up/Referrals: Corby Zurita MD [Primary Care Provider] - Discharge Health Status Brief summary of current health status: 73-year-old female who presented with abdominal pain, nausea, and vomiting who was found to have a E. coli UTI sensitive to levofloxacin with 3 more days to complete 7 day course of antibi otic therapy. Patient also developed symptomatic orthostatic hypotension which is now resolved. Midodrine was increased from 5 mg twice daily to 10 mg 3 times daily, levodopa/carbidopa for RLS was stopped, and the patient was given IV fluids. Please monitor blood pressure closely as midodrine may need to be titrated down or completely off now that levodopa/carbidopa has been stopped. Continue compression stockings daily especially with ambulation. The patient has non-anion gap metabolic acidosis likely due to proximal renal tubular acidosis for which she is being treated and recommend a BMP in 1 week to check electrolytes and she will need outpatient consult with Nephrology. Multidrug resistant organism: No MDRO Precautions: [place] Provider Discharge Instructions Diet: Low-fat, Low-sodium and Low-cholesterol Activity: Activity as tolerated with FWW and PT/OT [facility] Rehab type: Physical therapy and Occupational therapy Discharge Data Primary Care Provider: Corby Zurita Attending Provider: Young Chavez Admit Date/Time: 08/29/18 10:42 Quality VTE Deep Vein Thrombosis/Pulmonary Embolism Present on Admission: No
--- NOTE | 2018-09-01 11:18 | CM.DPC ---
DCP: continued: Case discussed in Team Rounds with Dr. Johnson stating that pt was stable for d/c today. Orders received, checked, amended by Dr. Johnson and then faxed to [facility]. DC summary was faxed after completed and signed by Dr. Johnson. [place] can accept pt this afternoon and has w/c transport set up for 1430. Pt and GOVIND Malcolm are updated. Pt says she is looking forward to moving today.
[2018-09-01 12:00] VITALS: BP 100/53; PULSE 108; RESP 15; TEMP 36.7
--- NOTE | 2018-09-01 14:20 | PC.NURSE ---
Pt is packed up and ready for discharge to [facility]. Called report to Sumaya at [facility] and all questions were answered. Pt ready for discharge when [facility] arrives.
== END 2018-09-01 14:40 | DRG 391 ==
LOC: ED 16:11 → AC 16:18
PROVIDERS: Internal Medicine; Admitting Provider Internal Medicine; Emergency Provider Emergency Medicine; PCP Family Medicine; Visit Provider Internal Medicine
DX: R11.2 Nausea with vomiting, unspecified (principal); E43 Unspecified severe protein-calorie malnutrition; N39.0 Urinary tract infection, site not specified; E87.2 Acidosis; F11.20 Opioid dependence, uncomplicated; E86.0 Dehydration; B96.20 Unspecified Escherichia coli [E. coli] as the cause of diseases classified elsewhere; Z68.25 Body mass index [BMI] 25.0-25.9, adult; I95.1 Orthostatic hypotension; K31.84 Gastroparesis; N25.89 Other disorders resulting from impaired renal tubular function; Z98.84 Bariatric surgery status; G25.81 Restless legs syndrome; F32.9 Major depressive disorder, single episode, unspecified; D63.8 Anemia in other chronic diseases classified elsewhere; E03.9 Hypothyroidism, unspecified; G89.29 Other chronic pain; R07.9 Chest pain, unspecified
CPT/HCPCS: 36415; 36600; 71045; 80048; 80053; 81001; 81003; 81015; 82550; 82805; 83690; 83735; 84100; 84300; 84439; 84443; 84484; 85025; 85610; 85730; 86850; 86900; 86901; 87077; 87086; 87186; 93005; 96361; 96374; 97116; 97162; 97166; 97530; 97535; 99284; 99285; G0378; J1650; J1956; J2405; J3475

== ENCOUNTER → 2018-09-03 11:09 | Outpatient (CLI) | payer MEDICARE, OTHER, SELFPAY ==
[2018-09-03 11:06] VITALS: BMI 26.3
[2018-09-03 11:49] LABS: Add Manual Diff / Slide Review NO; Basophils Absolute Auto 0 /uL (0-100); Basophils Percent Auto 0.7 % (0-2); Eosinophils Absolute Auto 300 /uL (0-450); Eosinophils Percent Auto 4.4 % (2-4); Hematocrit 27.3 % (36-46); Hemoglobin 8.9 g/dL (12.0-16.0); Lymphocytes Absolute Auto 2200 /uL (1100-4500); Mean Corpuscular HGB Conc 32.5 % (30-36); Mean Corpuscular Hemoglobin 30.4 PG (26-34); Mean Corpuscular Volume 93.5 fL (80-100); Monocytes Absolute Auto 500 /uL (0-900); Neutrophils Absolute Auto 3100 /uL (1500-7000); Neutrophils Percent Auto 50.9 % (50-75); Platelet Count 319 X10^3/uL (150-400); Red Blood Cell Count 2.92 X10^6/uL (4.0-5.2); Red Cell Distribution Width 18.3 % (11.6-14.8); White Blood Cell Count 6.2 X10^3/uL (4.5-11.0)
== END ==
PROVIDERS: PCP Family Medicine; Visit Provider Nurse Practitioner
DX: D64.9 Anemia, unspecified (principal)
CPT/HCPCS: 36415; 85025

== ENCOUNTER → 2018-10-07 15:29 | Outpatient (CLI) | payer MEDICARE, OTHER, SELFPAY ==
[2018-09-03 11:06] VITALS: BMI 26.3
[2018-10-07 16:37] LABS: Urine Amphetamines Negative (Negative); Urine Cocaine Negative (Negative); Urine MDMA Negative (Negative); Urine Methamphetamines Negative (Negative); Urine Morphine/Opi cutoff 2000 Negative (Negative); Urine Phencyclidine Negative (Negative); Urine Tetrahydrocannabinol Negative (Negative)
[2018-10-07 16:38] LABS: Urine Barbiturates Positive (Negative); Urine Benzodiazepines Negative (Negative); Urine Methadone Negative (Negative); Urine Oxycodone Negative (Negative); Urine Tricyclic Antidepressant Negative (Negative)
[2018-10-07 16:43] LABS: Blood Urea Nitrogen 7 mg/dL (7-17); Calcium 9.6 mg/dL (8.4-10.2); Carbon Dioxide 22 mmol/L (22-32); Chloride 105 mmol/L (98-107); Estimated Glomerular Filt Rate > 60.0 mL/min (>60); Glucose 108 mg/dL (80-110); HEMOLYSIS < 15 (0-50); Potassium 4.6 mmol/L (3.4-5.1); Sodium 137 mmol/L (137-145)
[2018-10-07 17:14] LABS: Basophils Absolute Auto 0 /uL (0-100); Basophils Percent Auto 0.5 % (0-2); Eosinophils Absolute Auto 100 /uL (0-450); Eosinophils Percent Auto 1.6 % (2-4); Hematocrit 36.9 % (36-46); Hemoglobin 11.9 g/dL (12.0-16.0); Lymphocytes Absolute Auto 1600 /uL (1100-4500); Lymphocytes Percent Auto 27.7 % (25-40); Mean Corpuscular HGB Conc 32.4 % (30-36); Mean Corpuscular Hemoglobin 30.4 PG (26-34); Monocytes Absolute Auto 400 /uL (0-900); Monocytes Percent Auto 6.5 % (3-14); Neutrophils Absolute Auto 3600 /uL (1500-7000); Neutrophils Percent Auto 63.7 % (50-75); Platelet Count 292 X10^3/uL (150-400); Red Blood Cell Count 3.92 X10^6/uL (4.0-5.2); Red Cell Distribution Width 16.8 % (11.6-14.8); White Blood Cell Count 5.7 X10^3/uL (4.5-11.0)
[2018-10-07 17:16] LABS: Add Manual Diff / Slide Review SLIDE REVIEW
[2018-10-07 17:51] LABS: Anisocytosis 1+
== END ==
PROVIDERS: PCP Family Medicine; Visit Provider Family Medicine
DX: M54.5 Low back pain (principal); G89.29 Other chronic pain; M54.9 Dorsalgia, unspecified; Z79.899 Other long term (current) drug therapy
CPT/HCPCS: 36415; 80048; 80305; 81099; 85025

== ENCOUNTER 2018-10-20 10:16 | Emergency (ER) | payer MEDICARE, OTHER, SELFPAY ==
[2018-09-03 11:06] VITALS: BMI 26.3
[2018-10-20] VITALS (8 sets, daily range): BP systolic 94–121; BP diastolic 45–76; PULSE 69–116; RESP 11–18; TEMP 36.7; O2SAT 93–100
[2018-10-20] MEDS: ONDANSETRON 4 MG/2 ML INJ IV (10:38)
[2018-10-20] MEDS: SODIUM CHLORIDE 0.9% 1,000 ML 250 ML IV (10:38)
[2018-10-20 10:51] LABS: INR 1.2 (0.9-1.3); Prothrombin Time 13.6 SECONDS (10.1-12.7)
[2018-10-20 10:52] LABS: Basophils Absolute Auto 100 /uL (0-100); Basophils Percent Auto 0.9 % (0-2); Eosinophils Absolute Auto 100 /uL (0-450); Eosinophils Percent Auto 1.2 % (2-4); Hematocrit 37.3 % (36-46); Hemoglobin 12.4 g/dL (12.0-16.0); Lymphocytes Absolute Auto 1400 /uL (1100-4500); Lymphocytes Percent Auto 19.9 % (25-40); Mean Corpuscular HGB Conc 33.2 % (30-36); Mean Corpuscular Volume 93.3 fL (80-100); Monocytes Absolute Auto 600 /uL (0-900); Monocytes Percent Auto 8.4 % (3-14); Neutrophils Absolute Auto 4700 /uL (1500-7000); Neutrophils Percent Auto 69.6 % (50-75); Platelet Count 309 X10^3/uL (150-400); Red Blood Cell Count 3.99 X10^6/uL (4.0-5.2); Red Cell Distribution Width 16.9 % (11.6-14.8); White Blood Cell Count 6.8 X10^3/uL (4.5-11.0)
[2018-10-20 10:53] LABS: PTT Partial Thromboplastin Tim 33 SECONDS (26.4-36.2)
[2018-10-20 10:55] LABS: Albumin Globulin Ratio 1.3 (1.0-2.8); Alkaline Phosphatase 61 U/L (38-126); Aspartate Aminotransferase 11 IU/L (14-36); BUN Creatinine Ratio 31.7 (6-22); Bilirubin Total 0.7 mg/dL (0.2-1.3); Blood Urea Nitrogen 19 mg/dL (7-17); Calcium 9.9 mg/dL (8.4-10.2); Carbon Dioxide 22 mmol/L (22-32); Chloride 105 mmol/L (98-107); Estimated Glomerular Filt Rate > 60.0 mL/min (>60); Glucose 133 mg/dL (80-110); HEMOLYSIS 21 (0-50); Lipase 58 U/L (23-300); Potassium 4.7 mmol/L (3.4-5.1); Sodium 138 mmol/L (137-145)
[2018-10-20 10:56] LABS: Add Manual Diff / Slide Review SLIDE REVIEW; Alanine Aminotransferase < 6 IU/L (9-52)
[2018-10-20 11:22] LABS: Anisocytosis 1+; Target Cells 1+
--- NOTE | 2018-10-20 11:25 | ED.NAVMDI ---
HPI - Nausea/Vomiting/Diarrhea General Chief complaint: Nausea/Vomiting/Diarrhea Stated complaint: Vomiting since Sunday Time Seen by Provider: 10/20/18 10:39 Source: patient Mode of arrival: ambulatory Limitations: no limitations History of Present Illness HPI Narrative: Patient comes emergency department complaining of nausea, vomiting, and diarrhea for the last 2 days. She states that she has had ongoing issues with chronic vomiting, but had been doing better for about the last month. Patient states she had a liquid anti nausea medication which she tried taking at home, but this came back up. Patient denies any sick contacts. No specific triggers that she can think of. She denies abdominal pain other than some cramping before vomiting. She states that she has had some back pain, but that this is not uncommon for her, and she thinks that it is related to the vomiting. Patient states she has chronic episodes of shortness of breath, the etiology of which she is unsure. Patient is not known to have any heart or lung problems, but she does have a history of extensive secondhand smoke exposure throughout childhood. Patient herself has never been a smoker, and is not known to have COPD. Patient states that her shortness of breath has been ongoing for some months. No swelling in her lower extremities. No calf pain or tenderness. Patient also reports chronic dizziness, for which she has been worked up extensively by her primary care physician, and for which she is scheduled to see a neurologist. Related Data Home Medications Medication Instructions Recorded Confirmed Diabetic Shoes 1 pkg MISCELLANEOUS DIRECTED 01/14/18 10/09/18 Walker: Four Wheel 1 u MISCELLANEOUS DIRECTED 01/14/18 10/09/18 bupropion HCl 150 mg PO BID 03/05/18 10/09/18 ferrous sulfate [FeroSul] 1 tab PO BID 08/04/18 10/09/18 aspirin 81 mg PO DAILY 08/28/18 10/09/18 lovastatin 5 mg PO Q OTHER DAY 08/28/18 10/09/18 Previous Rx's Medication Instructions Recorded levothyroxine 175 mcg tablet 175 mcg PO DAILY #90 tab 07/22/18 blood-glucose meter kit #1 each 08/27/18 midodrine 10 mg PO TID #0 tab 09/01/18 potassium chloride [Klor-Con M10] 10 meq PO DAILYCC #30 tab 09/01/18 sodium citrate-citric acid 10 ml PO Q6HR #15 ml 09/01/18 [id number]-dngkrgst See Rx Instructions .ROUTE 09/27/18 50 mg-325 mg-40 mg tablet .COMPLEX PRN #60 tab citalopram 20 mg tablet 40 mg PO DAILY #60 tab 09/27/18 carbidopa 25 mg-levodopa 100 mg 1 tab PO TID #90 tab 10/02/18 tablet hydrocodone 5 mg-acetaminophen 325 See Rx Instructions PO QID PRN 10/07/18 mg tablet #112 tab levofloxacin 250 mg tablet 250 mg PO DAILY #7 tab 10/07/18 temazepam 15 mg capsule 15 mg PO BEDTIME PRN #20 cap 10/07/18 ondansetron 4 mg PO Q6H PRN #30 tab 10/20/18 sulfamethoxazole-trimethoprim 1 tab PO BID #14 tab 10/20/18 [Bactrim DS] blood sugar diagnostic strips #100 each 10/22/18 gabapentin 600 mg tablet 600 - 1,200 mg PO TID #90 tab 10/22/18 lancets #100 each 10/22/18 Allergies Allergy/AdvReac Type Severity Reaction Status Date / Time amoxicillin [From AUGMENTIN] Allergy Mild RASH Verified 10/07/18 14:51 clavulanic acid Allergy Mild RASH Verified 10/07/18 14:51 [From AUGMENTIN] metformin [METFORMIN] AdvReac Severe SWELLING Verified 10/07/18 14:51 Review of Systems Constitutional Denies chills, Denies fever(s), Denies lethargy and Denies weakness Eyes Denies change in vision, Denies eye discharge, Denies irritation and Denies loss of vision ENT Ears, Nose, Mouth, and Throat: Denies change in voice, Denies neck pain and Denies sore throat Cardiovascular Denies chest pain, Denies irregular heart rhythm, Denies lightheadedness, Denies palpitations, Denies dyspnea, Denies dyspnea on exertion and Denies orthopnea Respiratory Denies cough, Denies dyspnea, Denies dyspnea on exertion and Denies wheezing Gastrointestinal Gastrointestinal: Denies abdominal pain, Denies change in bowel habits, Reports diarrhea, Reports nausea and Reports vomiting Genitourinary Denies hematuria, Denies flank pain, Denies urinary incontinence and Denies urinary urgency Musculoskeletal Denies neck pain Integumentary/Breasts Denies pruritus, Denies erythema, Denies rash and Denies wounds Neurologic Denies confusion, Denies loss of vision and Denies weakness Psychiatric Denies anxiety, Denies confusion, Denies depression, Denies homicidal ideation and Denies suicidal ideation Endocrine Denies palpitations Hematologic/Lymphatic Denies easy bruising Allergic/Immunologic Denies wheezing [facility] Medical History (Updated 10/20/18 @ 14:26 by Raisa Kee MD) Hyperthyroidism (Chronic ~2004) Gastric ulcer (Chronic ~1991) History of irregular menstrual cycles (Chronic ~1989) Ovarian cyst (Chronic ~1999) Painful menstrual periods (Chronic ~1978) Anemia (Chronic ~2004) Chicken pox (Resolved) Measles (Resolved) Mumps (Resolved) Chronic back pain (Chronic ~2009) Foot pain (Chronic ~2010) Fractures (Chronic ~2011) Neuropathy (Chronic ~2008) Headache (Chronic ~1989) Migraines (Chronic ~1989) Restless leg syndrome (Chronic ~1989) Lupus (Chronic ~1999) Arthritis (Chronic) Surgical History (Updated 10/20/18 @ 11:31 by Raisa Kee MD) H/O hernia repair (Acute) S/P foot surgery, right (Acute) Gastric bypass status for obesity (Acute) Hx of resection of stomach (Resolved) Family History Grandfather No problems noted. Grandmother No problems noted. Mother No problems noted. Son Diabetes mellitus Social History marital status: household members: spouse and children Smoking Status: Never smoker alcohol intake: never substance use type: does not use Social History marital status: household members: spouse and children Smoking Status: Never smoker alcohol intake: never substance use type: does not use Exam Initial Vital Signs Initial Vital Signs: Vital Signs Temperature 98.1 F 10/20/18 10:20 Pulse Rate 116 H 10/20/18 10:20 Respiratory Rate 18 10/20/18 10:20 Blood Pressure 109/64 10/20/18 10:20 Pulse Oximetry 100 10/20/18 10:20 Const General: cooperative and well developed Nutritional Appearance: well nourished Orientation: alert, awake, oriented x3 and not confused HENMT Head: normocephalic and atraumatic Ears: external ears normal Nose: external nose normal and No nasal discharge Face and sinus: face symmetric and No dry mucous membranes Mouth: oral mucosae normal and moist mucous membranes Teeth and gingiva: dentition normal Eyes General: appearance normal, both eyes and all related structures Eyelids: eyelids normal Conjunctivae: conjunctivae normal Sclera: sclerae normal Pupils: PERRL EOM: EOM intact bilaterally Neck Neck: normal visual inspection, trachea midline, No lymphadenopathy, No midline deformity and No JVD Lymphatic: No lymphedema Chest Chest: normal inspection of the chest Resp Effort & Inspection: normal respiratory effort, able to speak in complete sentences, no respiratory distress and no use of accessory muscles Auscultation: clear to auscultation bilaterally, no rales, no rhonchi and no wheezes Cardio Rate: regular rate Rhythm: regular rhythm Heart Sounds: no click, no gallops, no murmurs and no rubs Pulses: normal peripheral pulses GI Inspection: non-distended Palpation: soft, no hepatosplenomegaly, No guarding, No pulsatile mass and No tender Auscultation: normal bowel sounds Back/Spine/Pelvis Back: No CVA tenderness Cervical Spine: cervical ROM normal and No pain with cervical ROM Thoracic/Lumbar Spine: thoracic and lumbar spine normal to inspection Skin General: no rashes or lesions noted, No jaundice and No petechiae Neuro General: alert, oriented x3, gait normal and no focal motor deficits Speech: speech normal Extrem General: full ROM, no clubbing, cyanosis or edema, no pedal edema and no calf tenderness Psych Appearance: well kempt Mental Status: mental status grossly normal Attitude: cooperative Thought Content: normal and suicidality Judgment: judgment good Course Course Narrative: The patient was worked up with labs and treated symptomatically with IV fluids, Zofran, Compazine, and Dilaudid. Patient was found to be feeling much better after the above interventions. Her labs were unremarkable. I felt the patient was stable for discharge home, and I have discussed home management of the symptoms. Patient was given a refill of her oral dissolving Zofran. We have discussed the usual indications for return. No emergent condition identified. Orders Ordered: Discontinued Medications Hydromorphone HCl (Dilaudid) 0.5 mg IV NOW ONE Stop: 10/20/18 11:33 Last Admin: 10/20/18 12:02 Dose: 0.5 mg Sodium Chloride (Normal Saline 0.9%) 1,000 mls @ 250 mls/hr IV BOLUS ONE Stop: 10/20/18 14:29 Last Infusion: 10/20/18 14:37 Dose: 0 mls/hr Infusion: 10/20/18 12:40 Dose: 250 mls/hr Infusion: 10/20/18 11:15 Dose: 125 mls/hr Admin: 10/20/18 10:38 Dose: 250 mls/hr Ketorolac Tromethamine (Toradol) 15 mg IV NOW ONE Stop: 10/20/18 13:17 Last Admin: 10/20/18 13:30 Dose: 15 mg Ondansetron HCl (Zofran) 4 mg IV NOW ONE Stop: 10/20/18 10:31 Last Admin: 10/20/18 10:38 Dose: 4 mg Prochlorperazine (Compazine) 10 mg IV NOW ONE Stop: 10/20/18 11:27 Last Admin: 10/20/18 12:01 Dose: 10 mg Trimethoprim/Sulfamethoxazole (Bactrim Ds) 1 tab PO NOW ONE Stop: 10/20/18 14:24 Vital Signs - 8 hr 10/20/18 10:20 10/20/18 11:00 Temperature 98.1 F Pulse Rate 116 H 88 Respiratory Rate 18 14 Blood Pressure 109/64 Blood Pressure [Left Arm] 121/63 Pulse Oximetry 100 100 MDM - Nausea/Vomiting/Diarrhea Medical Records Attestation: I reviewed the patient's medical records. Lab Data Attestation: I reviewed the patient's lab results. Result diagrams: 10/20/18 10:33 10/20/18 10:33 Lab Results 10/20/18 10/20/18 10/20/18 Range/Units 10:33 10:33 10:33 WBC 6.8 (4.5-11.0) X10^3/uL RBC 3.99 L (4.0-5.2) X10^6/uL Hgb 12.4 (12.0-16.0) g/dL Hct 37.3 (36-46) % MCV 93.3 (80-100) fL MCH 31.0 (26-34) PG MCHC 33.2 (30-36) % RDW 16.9 H (11.6-14.8) % Plt Count 309 (150-400) X10^3/uL Neut % (Auto) 69.6 (50-75) % Lymph % (Auto) 19.9 L (25-40) % [place] % (Auto) 8.4 (3-14) % Eos % (Auto) 1.2 L (2-4) % Baso % (Auto) 0.9 (0-2) % Neut # (Auto) 4700 (9312-9340) /uL Lymph # (Auto) 1400 (4129-8991) /uL [place] # (Auto) 600 (0-900) /uL Eos # (Auto) 100 (0-450) /uL Baso # (Auto) 100 (0-100) /uL RBC Morphology See below Anisocytosis 1+ H Target Cells 1+ H PT 13.6 H (10.1-12.7) SECONDS INR 1.2 (0.9-1.3) APTT 33 D (26.4-36.2) SECONDS Sodium 138 (137-145) mmol/L Potassium 4.7 (3.4-5.1) mmol/L Chloride 105 (98-107) mmol/L Carbon Dioxide 22 (22-32) mmol/L BUN 19 H (7-17) mg/dL Creatinine 0.60 (0.52-1.04) mg/dL Estimated GFR > 60.0 (>60) mL/min BUN/Creatinine Ratio 31.7 H (6-22) Glucose 133 H (80-110) mg/dL Calcium 9.9 (8.4-10.2) mg/dL Total Bilirubin 0.7 (0.2-1.3) mg/dL AST 11 L (14-36) IU/L ALT < 6 L (9-52) IU/L Alkaline Phosphatase 61 (38-126) U/L B-Natriuretic Peptide (<100) Total Protein 7.0 (6.3-8.2) g/dL Albumin 4.0 (3.5-5.0) g/dL Globulin 3.0 (1.7-4.1) g/dL Albumin/Globulin Ratio 1.3 (1.0-2.8) Lipase 58 (23-300) U/L Urine RBC (0-5/HPF) Urine WBC (0-5/HPF) Ur Squamous Epith Cells (0-5/HPF) Uric Acid Crystals Urine Bacteria (None) Ur Culture Indicated? 10/20/18 10/20/18 Range/Units 10:33 13:20 WBC (4.5-11.0) X10^3/uL RBC (4.0-5.2) X10^6/uL Hgb (12.0-16.0) g/dL Hct (36-46) % MCV (80-100) fL MCH (26-34) PG MCHC (30-36) % RDW (11.6-14.8) % Plt Count (150-400) X10^3/uL Neut % (Auto) (50-75) % Lymph % (Auto) (25-40) % [place] % (Auto) (3-14) % Eos % (Auto) (2-4) % Baso % (Auto) (0-2) % Neut # (Auto) (0085-8531) /uL Lymph # (Auto) (5708-3226) /uL [place] # (Auto) (0-900) /uL Eos # (Auto) (0-450) /uL Baso # (Auto) (0-100) /uL RBC Morphology Anisocytosis Target Cells PT (10.1-12.7) SECONDS INR (0.9-1.3) APTT (26.4-36.2) SECONDS Sodium (137-145) mmol/L Potassium (3.4-5.1) mmol/L Chloride (98-107) mmol/L Carbon Dioxide (22-32) mmol/L BUN (7-17) mg/dL Creatinine (0.52-1.04) mg/dL Estimated GFR (>60) mL/min BUN/Creatinine Ratio (6-22) Glucose (80-110) mg/dL Calcium (8.4-10.2) mg/dL Total Bilirubin (0.2-1.3) mg/dL AST (14-36) IU/L ALT (9-52) IU/L Alkaline Phosphatase (38-126) U/L B-Natriuretic Peptide < 100 (<100) Total Protein (6.3-8.2) g/dL Albumin (3.5-5.0) g/dL Globulin (1.7-4.1) g/dL Albumin/Globulin Ratio (1.0-2.8) Lipase (23-300) U/L Urine RBC None seen (0-5/HPF) Urine WBC 5-10/hpf H (0-5/HPF) Ur Squamous Epith Cells 0-1 /hpf (0-5/HPF) Uric Acid Crystals Many Urine Bacteria Moderate (10-30) H (None) Ur Culture Indicated? Specimen cultured Urine Dip Bedside Urine Glucose Negative Bedside Urine Bilirubin + 1 Bedside Urine Ketone ++ 40 Urine Specific Hydes 1.030 Bedside Urine Occult Blood - Negative Bedside Urine pH 5.5 Bedside Urine Protein + 30 Bedside Urine Urobilinogen +/- 1mg Bedside Urine Nitrite - Negative Bedside Urine Leukocytes ++ 125 Esterase Imaging Data Chest x-ray: Radiologist's impression: [address] [address] XRay Report Signed Patient: Veronique Gould LMR#: [id number] : 7Acct:[id number] Age/Sex: 73 / FDate of Service: 10/20/18 Loc: ED Accession Number: [id number] Procedure: XR chest 2V Ordering Provider: Raisa Kee MD PROCEDURE: XR CHEST 2V INDICATIONS: sob TECHNIQUE: 2 views of the chest were acquired. [facility], 13:15. FINDINGS: Surgical changes and devices: None. Lungs and pleura: Lungs are clear. No pleural effusions or pneumothorax. Mediastinum: Mediastinal contours are normal. Heart size is normal. Bones and chest wall: No suspicious bony abnormalities. Soft tissues appear unremarkable. IMPRESSION: No acute process. Dictated by: Yen Aly M.D. on 10/20/2018 at 10:54 Approved by: Yen Aly M.D. on 10/20/2018 at 10:54 Discharge Plan Departure Patient Disposition: Home Clinical Impression: UTI (urinary tract infection) Qualifiers: Urinary tract infection type: acute cystitis Hematuria presence: without hematuria Qualified Code(s): N30.00 - Acute cystitis without hematuria Vomiting Qualifiers: Vomiting type: unspecified Vomiting Intractability: non-intractable Nausea presence: with nausea Qualified Code(s): R11.2 - Nausea with vomiting, unspecified Discharge Date/Time: 10/20/18 14:39 Interventions: ED Discharge Assessment Last Done: 10/20/18 14:38 Instructions: DI for Urinary Tract Infection (UTI), DI for Vomiting -- Adult Prescriptions: New sulfamethoxazole-trimethoprim [Bactrim DS] 800-160 mg tablet 1 tab PO BID Qty: 14 RF: 0 ondansetron 4 mg tablet,disintegrating 4 mg PO Q6H PRN (Reason: nausea and vomiting) Qty: 30 RF: 0 No Action levothyroxine [Synthroid] 175 mcg tablet 175 mcg PO DAILY Qty: 90 RF: 1 blood-glucose meter [Blood Glucose Monitoring] kit .ROUTE .MEDSUPPLY Qty: 1 RF: 0 citalopram 20 mg tablet 40 mg PO DAILY Qty: 60 RF: 5 zkgsxozvuz-oiizdmcbzsgob-meic 50-325-40 mg tablet See Rx Instructions .ROUTE .COMPLEX PRN (Reason: Headache) Qty: 60 RF: 0 carbidopa-levodopa 25-100 mg tablet 1 tab PO TID Qty: 90 RF: 1 gabapentin 600 mg tablet 600 - 1,200 mg PO TID Qty: 90 RF: 0 Blood Glucose Test strip .ROUTE .MEDSUPPLY Qty: 100 RF: 3 lancets misc .ROUTE .MEDSUPPLY Qty: 100 RF: 3 levofloxacin 250 mg tablet 250 mg PO DAILY Qty: 7 RF: 0 temazepam 15 mg capsule 15 mg PO BEDTIME PRN (Reason: Sleep) Qty: 20 RF: 0 hydrocodone-acetaminophen 5-325 mg tablet See Rx Instructions PO QID PRN (Reason: pain) Qty: 112 RF: 0 Walker: Four Wheel 1 u miscellaneous DIRECTED RF: 0 Diabetic Shoes 1 pkg miscellaneous DIRECTED RF: 0 lovastatin 10 mg tablet 5 mg PO Q OTHER DAY RF: 0 aspirin 81 mg Tablet,Delayed Release (Dr/Ec) 81 mg PO DAILY RF: 0 potassium chloride [Klor-Con M10] 10 mEq Tablet,Er Particles/Crystals 10 meq PO DAILYCC Qty: 30 RF: 0 midodrine 5 mg tablet 10 mg PO TID Qty: 0 RF: 0 sodium citrate-citric acid 500-334 mg/5 mL Solution 10 ml PO Q6HR Qty: 15 RF: 0 bupropion HCl 150 mg tablet sustained-release 12 hr 150 mg PO BID RF: 0 ferrous sulfate [FeroSul] 325 mg (65 mg iron) Tablet 1 tab PO BID RF: 0 Referrals: Corby Zurita MD [Primary Care Provider] -
--- NOTE | 2018-10-20 11:32 | ED_ITS ---
HPI - Nausea/Vomiting/Diarrhea General Chief complaint: Nausea/Vomiting/Diarrhea Stated complaint: Vomiting since Sunday Time Seen by Provider: 10/20/18 10:39 Source: patient Mode of arrival: ambulatory Limitations: no limitations History of Present Illness HPI Narrative: Patient comes emergency department complaining of nausea, vomiting, and diarrhea for the last 2 days. She states that she has had ongoing issues with chronic vomiting, but had been doing better for about the last month. Patient states she had a liquid anti nausea medication which she tried taking at home, but this came back up. Patient denies any sick contacts. No specific triggers that she can think of. She denies abdominal pain other than some cramping before vomiting. She states that she has had some back pain, but that this is not uncommon for her, and she thinks that it is related to the vomiting. Patient states she has chronic episodes of shortness of breath, the etiology of which she is unsure. Patient is not known to have any heart or lung problems, but she does have a history of extensive secondhand smoke exposure t hroughout childhood. Patient herself has never been a smoker, and is not known to have COPD. Patient states that her shortness of breath has been ongoing for some months. No swelling in her lower extremities. No calf pain or tenderness. Patient also reports chronic dizziness, for which she has been worked up extensively by her primary care physician, and for which she is scheduled to see a neurologist. Related Data Home Medications Medication Instructions Recorded Confirmed Diabetic Shoes 1 pkg MISCELLANEOUS DIRECTED 01/14/18 10/09/18 Walker: Four Wheel 1 u MISCELLANEOUS DIRECTED 01/14/18 10/09/18 bupropion HCl 150 mg PO BID 03/05/18 10/09/18 ferrous sulfate [FeroSul] 1 tab PO BID 08/04/18 10/09/18 aspirin 81 mg PO DAILY 08/28/18 10/09/18 lovastatin 5 mg PO Q OTHER DAY 08/28/18 10/09/18 Previous Rx's Medication Instructions Recorded levothyroxine 175 mcg tablet 175 mcg PO DAILY #90 tab 07/22/18 blood-glucose meter kit #1 each 08/27/18 midodrine 10 mg PO TID #0 tab 09/01/18 potassium chloride [Klor-Con M10] 10 meq PO DAILYCC #30 tab 09/01/18 sodium citrate-citric acid 10 ml PO Q6HR #15 ml 09/01/18 epfnxpreiw-ddekyaaqlmphg-nqxgirln See Rx Instructions .ROUTE 09/27/18 50 mg-325 mg-40 mg tablet .COMPLEX PRN #60 tab citalopram 20 mg tablet 40 mg PO DAILY #60 tab 09/27/18 carbidopa 25 mg-levodopa 100 mg 1 tab PO TID #90 tab 10/02/18 tablet hydrocodone 5 mg-acetaminophen 325 See Rx Instructions PO QID PRN 10/07/18 mg tablet #112 tab levofloxacin 250 mg tablet 250 mg PO DAILY #7 tab 10/07/18 temazepam 15 mg capsule 15 mg PO BEDTIME PRN #20 cap 10/07/18 ondansetron 4 mg PO Q6H PRN #30 tab 10/20/18 sulfamethoxazole-trimethoprim 1 tab PO BID #14 tab 10/20/18 [Bactrim DS] blood sugar diagnostic strips #100 each 10/22/18 gabapentin 600 mg tablet 600 - 1,200 mg PO TID #90 tab 10/22/18 lancets #100 each 10/22/18 Allergies Allergy/AdvReac Type Severity Reaction Status Date / Time amoxicillin [From AUGMENTIN] Allergy Mild RASH Verified 10/07/18 14:51 clavulanic acid Allergy Mild RASH Verified 10/07/18 14:51 [From AUGMENTIN] metformin [METFORMIN] AdvReac Severe SWELLING Verified 10/07/18 14:51 Review of Systems Constitutional Denies chills, Denies fever(s), Denies lethargy and Denies weakness Eyes Denies change in vision, Denies eye discharge, Denies irritation and Denies loss of vision ENT Ears, Nose, Mouth, and Throat: Denies change in voice, Denies neck pain and Denies sore throat Cardiovascular Denies chest pain, Denies irregular heart rhythm, Denies lightheadedness, Denies palpitations, Denies dyspnea, Denies dyspnea on exertion and Denies orthopnea Respiratory Denies cough, Denies dyspnea, Denies dyspnea on exertion and Denies wheezing Gastrointestinal Gastrointestinal: Denies abdominal pain, Denies change in bowel habits, Reports diarrhea, Reports nausea and Reports vomiting Genitourinary Denies hematuria, Denies flank pain, Denies urinary incontinence and Denies urinary urgency Musculoskeletal Denies neck pain Integumentary/Breasts Denies pruritus, Denies erythema, Denies rash and Denies wounds Neurologic Denies confusion, Denies loss of vision and Denies weakness Psychiatric Denies anxiety, Denies confusion, Denies depression, Denies homicidal ideation a nd Denies suicidal ideation Endocrine Denies palpitations Hematologic/Lymphatic Denies easy bruising Allergic/Immunologic Denies wheezing [facility] Medical History (Updated 10/20/18 @ 14:26 by Raisa Kee MD) Hyperthyroidism (Chronic ~2004) Gastric ulcer (Chronic ~1991) History of irregular menstrual cycles (Chronic ~1989) Ovarian cyst (Chronic ~1999) Painful menstrual periods (Chronic ~1978) Anemia (Chronic ~2004) Chicken pox (Resolved) Measles (Resolved) Mumps (Resolved) Chronic back pain (Chronic ~2009) Foot pain (Chronic ~2010) Fractures (Chronic ~2011) Neuropathy (Chronic ~2008) Headache (Chronic ~1989) Migraines (Chronic ~1989) Restless leg syndrome (Chronic ~1989) Lupus (Chronic ~1999) Arthritis (Chronic) Surgical History (Updated 10/20/18 @ 11:31 by Raisa Kee MD) H/O hernia repair (Acute) S/P foot surgery, right (Acute) Gastric bypass status for obesity (Acute) Hx of resection of stomach (Resolved) Family History Grandfather No problems noted. Grandmother No problems noted. Mother No problems noted. Son Diabetes mellitus Social History marital status: household members: spouse and children Smoking Status: Never smoker alcohol intake: never substance use type: does not use Social History marital status: household members: spouse and children Smoking Status: Never smoker alcohol intake: never substance use type: does not use Exam Initial Vital Signs Initial Vital Signs: Vital Signs Temperature 98.1 F 10/20/18 10:20 Pulse Rate 116 H 10/20/18 10:20 Respiratory Rate 18 10/20/18 10:20 Blood Pressure 109/64 10/20/18 10:20 Pulse Oximetry 100 10/20/18 10:20 Const General: cooperative and well developed Nutritional Appearance: well nourished Orientation: alert, awake, oriented x3 and not confused [facility] Head: normocephalic and atraumatic Ears: external ears normal Nose: external nose normal and No nasal discharge Face and sinus: face symmetric and No dry mucous membranes Mouth: oral mucosae normal and moist mucous membranes Teeth and gingiva: dentition normal Eyes General: appearance normal, both eyes and all related structures Eyelids: eyelids normal Conjunctivae: conjunctivae normal Sclera: sclerae normal Pupils: PERRL EOM: EOM intact bilaterally Neck Neck: normal visual inspection, trachea midline, No lymphadenopathy, No midline deformity and No JVD Lymphatic: No lymphedema Chest Chest: normal inspection of the chest Resp Effort & Inspection: normal respiratory effort, able to speak in complete sentences, no respiratory distress and no use of accessory muscles Auscultation: clear to auscultation bilaterally, no rales, no rhonchi and no wheezes Cardio Rate: regular rate Rhythm: regular rhythm Heart Sounds: no click, no gallops, no murmurs and no rubs Pulses: normal peripheral pulses GI Inspection: non-distended Palpation: soft, no hepatosplenomegaly, No guarding, No pulsatile mass and No tender Auscultation: normal bowel sounds Back/Spine/Pelvis Back: No CVA tenderness Cervical Spine: cervical ROM normal and No pain with cervical ROM Thoracic/Lumbar Spine: thoracic and lumbar spine normal to inspection Skin General: no rashes or lesions noted, No jaundice and No petechiae Neuro General: alert, oriented x3, gait normal and no focal motor deficits Speech: speech normal Extrem General: full ROM, no clubbing, cyanosis or edema, no pedal edema and no calf tenderness Psych Appearance: well kempt Mental Status: mental status grossly normal Attitude: cooperative Thought Content: normal and suicidality Judgment: judgment good Course Course Narrative: The patient was worked up with labs and treated symptomaticall y with IV fluids, Zofran, Compazine, and Dilaudid. Patient was found to be feeling much better after the above interventions. Her labs were unremarkable. I felt the patient was stable for discharge home, and I have discussed home management of the symptoms. Patient was given a refill of her oral dissolving Zofran. We have discussed the usual indications for return. No emergent condition identified. Orders Ordered: Discontinued Medications Hydromorphone HCl (Dilaudid) 0.5 mg IV NOW ONE Stop: 10/20/18 11:33 Last Admin: 10/20/18 12:02 Dose: 0.5 mg Sodium Chloride (Normal Saline 0.9%) 1,000 mls @ 250 mls/hr IV BOLUS ONE Stop: 10/20/18 14:29 Last Infusion: 10/20/18 14:37 Dose: 0 mls/hr Infusion: 10/20/18 12:40 Dose: 250 mls/hr Infusion: 10/20/18 11:15 Dose: 125 mls/hr Admin: 10/20/18 10:38 Dose: 250 mls/hr Ketorolac Tromethamine (Toradol) 15 mg IV NOW ONE Stop: 10/20/18 13:17 Last Admin: 10/20/18 13:30 Dose: 15 mg Ondansetron HCl (Zofran) 4 mg IV NOW ONE Stop: 10/20/18 10:31 Last Admin: 10/20/18 10:38 Dose: 4 mg Prochlorperazine (Compazine) 10 mg IV NOW ONE Stop: 10/20/18 11:27 Last Admin: 10/20/18 12:01 Dose: 10 mg Trimethoprim/Sulfamethoxazole (Bactrim Ds) 1 tab PO NOW ONE Stop: 10/20/18 14:24 Vital Signs - 8 hr 10/20/18 10:20 10/20/18 11:00 Temperature 98.1 F Pulse Rate 116 H 88 Respiratory Rate 18 14 Blood Pressure 109/64 Blood Pressure [Left Arm] 121/63 Pulse Oximetry 100 100 MDM - Nausea/Vomiting/Diarrhea Medical Records Attestation: I reviewed the patient's medical records. Lab Data Attestation: I reviewed the patient's lab results. Result diagrams: 10/20/18 10:33 10/20/18 10:33 Lab Results 10/20/18 10/20/18 10/20/18 Range/Units 10:33 10:33 10:33 WBC 6.8 (4.5-11.0) X10^3/uL RBC 3.99 L (4.0-5.2) X10^6/uL Hgb 12.4 (12.0-16.0) g/dL Hct 37.3 (36-46) % MCV 93.3 (80-100) fL MCH 31.0 (26-34) PG MCHC 33.2 (30-36) % RDW 16.9 H (11.6-14.8) % Plt Count 309 (150-400) X10^3/uL Neut % (Auto) 69.6 (50-75) % Lymph % (Auto) 19.9 L (25-40) % Wilkinson % (Auto) 8.4 (3-14) % Eos % (Auto) 1.2 L (2-4) % Baso % (Auto) 0.9 (0-2) % Neut # (Auto) 4700 (3281-3501) /uL Lymph # (Auto) 1400 (3045-7780) /uL Wilkinson # (Auto) 600 (0-900) /uL Eos # (Auto) 100 (0-450) /uL Baso # (Auto) 100 (0-100) /uL RBC Morphology See below Anisocytosis 1+ H Target Cells 1+ H PT 13.6 H (10.1-12.7) SECONDS INR 1.2 (0.9-1.3) APTT 33 D (26.4-36.2) SECONDS Sodium 138 (137-145) mmol/L Potassium 4.7 (3.4-5.1) mmol/L Chloride 105 (98-107) mmol/L Carbon Dioxide 22 (22-32) mmol/L BUN 19 H (7-17) mg/dL Creatinine 0.60 (0.52-1.04) mg/dL Estimated GFR > 60.0 (>60) mL/min BUN/Creatinine Ratio 31.7 H (6-22) Glucose 133 H (80-110) mg/dL Calcium 9.9 (8.4-10.2) mg/dL Total Bilirubin 0.7 (0.2-1.3) mg/dL AST 11 L (14-36) IU/L ALT < 6 L (9-52) IU/L Alkaline Phosphatase 61 (38-126) U/L B-Natriuretic Peptide (<100) Total Protein 7.0 (6.3-8.2) g/dL Albumin 4.0 (3.5-5.0) g/dL Globulin 3.0 (1.7-4.1) g/dL Albumin/Globulin Ratio 1.3 (1.0-2.8) Lipase 58 (23-300) U/L Urine RBC (0-5/HPF) Urine WBC (0-5/HPF) Ur Squamous Epith Cells (0-5/HPF) Uric Acid Crystals Urine Bacteria (None) Ur Culture Indicated? 10/20/18 10/20/18 Range/Units 10:33 13:20 WBC (4.5-11.0) X10^3/uL RBC (4.0-5.2) X10^6/uL Hgb (12.0-16.0) g/dL Hct (36-46) % MCV (80-100) fL MCH (26-34) PG MCHC (30-36) % RDW (11.6-14.8) % Plt Count (150-400) X10^3/uL Neut % (Auto) (50-75) % Lymph % (Auto) (25-40) % Wilkinson % (Auto) (3-14) % Eos % (Auto) (2-4) % Baso % (Auto) (0-2) % Neut # (Auto) (0970-1327) /uL Lymph # (Auto) (0944-8888) /uL Wilkinson # (Auto) (0-900) /uL Eos # (Auto) (0-450) /uL Baso # (Auto) (0-100) /uL RBC Morphology Anisocytosis Target Cells PT (10.1-12.7) SECONDS INR (0.9-1.3) APTT (26.4-36.2) SECONDS Sodium (137-145) mmol/L Potassium (3.4-5.1) mmol/L Chloride (98-107) mmol/L Carbon Dioxide (22-32) mmol/L BUN (7-17) mg/dL Creatinine (0.52-1.04) mg/dL Estimated GFR (>60) mL/min BUN/Creatinine Ratio (6-22) Glucose (80-110) mg/dL Calcium (8.4-10.2) mg/dL Total Bilirubin (0.2-1.3) mg/dL AST (14-36) IU/L ALT (9-52) IU/L Alkaline Phosphatase (38-126) U/L B-Natriuretic Peptide < 100 (<100) Total Protein (6.3-8.2) g/dL Albumin (3.5-5.0) g/dL Globulin (1.7-4.1) g/dL Albumin/Globulin Ratio (1.0-2.8) Lipase (23-300) U/L Urine RBC None seen (0-5/HPF) Urine WBC 5-10/hpf H (0-5/HPF) Ur Squamous Epith Cells 0-1 /hpf (0-5/HPF) Uric Acid Crystals Many Urine Bacteria Moderate (10-30) H (None) Ur Culture Indicated? Specimen cultured Urine Dip Bedside Urine Glucose Negative Bedside Urine Bilirubin + 1 Bedside Urine Ketone ++ 40 Urine Specific [place] 1.030 Bedside Urine Occult Blood - Negative Bedside Urine pH 5.5 Bedside Urine Protein + 30 Bedside Urine Urobilinogen +/- 1mg Bedside Urine Nitrite - Negative Bedside Urine Leukocytes ++ 125 Esterase Imaging Data Chest x-ray: Radiologist's impression: [address] [address] XRay Report Signed Patient: Veronique Gould LMR#: [id number] : 7Acct:[id number] Age/Sex: 73 / FDate of Service: 10/20/18 Loc: ED Accession Number: [id number] Procedure: XR chest 2V Ordering Provider: Raisa Kee MD PROCEDURE: XR CHEST 2V INDICATIONS: sob TECHNIQUE: 2 views of the chest were acquired. COMPARISON: [facility], , XR CHEST 1V, 08/28/2018, 13:15. FINDINGS: Surgical changes and devices: None. Lungs and pleura: Lungs are clear. No pleural effusions or pneumothorax. Mediastinum: Mediastinal contours are normal. Heart size is normal. Bones and chest wall: No suspicious bony abnormalities. Soft tissues appear unremarkable. IMPRESSION: No acute process. Dictated by: Yen Aly M.D. on 10/20/2018 at 10:54 Approved by: Yen Aly M.D. on 10/20/2018 at 10:54 Discharge Plan Departure Patient Disposition: Home Clinical Impression: UTI (urinary tract infection) Qualifiers: Urinary tract infection type: acute cystitis Hematuria presence: without hematuria Qualified Code(s): N30.00 - Acute cystitis without hematuria Vomiting Qualifiers: Vomiting type: unspecified Vomiting Intractability: non-intractable Nausea presence: with nausea Qualified Code(s): R11.2 - Nausea with vomiting, unspecified Discharge Date/Time: 10/20/18 14:39 Interventions: ED Discharge Assessment Last Done: 10/20/18 14:38 Instructions: DI for Urinary Tract Infection (UTI), DI for Vomiting -- Adult Prescriptions: New sulfamethoxazole-trimethoprim [Bactrim DS] 800-160 mg tablet 1 tab PO BID Qty: 14 RF: 0 ondansetron 4 mg tablet,disintegrating 4 mg PO Q6H PRN (Reason: nausea and vomiting) Qty: 30 RF: 0 No Action levothyroxine [Synthroid] 175 mcg tablet 175 mcg PO DAILY Qty: 90 RF: 1 blood-glucose meter [Blood Glucose Monitoring] kit .ROUTE .MEDSUPPLY Qty: 1 RF: 0 citalopram 20 mg tablet 40 mg PO DAILY Qty: 60 RF: 5 wjwscvpupv-rxnoimlgkokpt-wiil 50-325-40 mg tablet See Rx Instructions .ROUTE .COMPLEX PRN (Reason: Headache) Qty: 60 RF: 0 carbidopa-levodopa 25-100 mg tablet 1 tab PO TID Qty: 90 RF: 1 gabapentin 600 mg tablet 600 - 1,200 mg PO TID Qty: 90 RF: 0 Blood Glucose Test strip .ROUTE .MEDSUPPLY Qty: 100 RF: 3 lancets misc .ROUTE .MEDSUPPLY Qty: 100 RF: 3 levofloxacin 250 mg tablet 250 mg PO DAILY Qty: 7 RF: 0 temazepam 15 mg capsule 15 mg PO BEDTIME PRN (Reason: Sleep) Qty: 20 RF: 0 hydrocodone-acetaminophen 5-325 mg tablet See Rx Instructions PO QID PRN (Reason: pain) Qty: 112 RF: 0 Walker: Four Wheel 1 u miscellaneous DIRECTED RF: 0 Diabetic Shoes 1 pkg miscellaneous DIRECTED RF: 0 lovastatin 10 mg tablet 5 mg PO Q OTHER DAY RF: 0 aspirin 81 mg Tablet,Delayed Release (Dr/Ec) 81 mg PO DAILY RF: 0 potassium chloride [Klor-Con M10] 10 mEq Tablet,Er Particles/Crystals 10 meq PO DAILYCC Qty: 30 RF: 0 midodrine 5 mg tablet 10 mg PO TID Qty: 0 RF: 0 sodium citrate-citric acid 500-334 mg/5 mL Solution 10 ml PO Q6HR Qty: 15 RF: 0 bupropion HCl 150 mg tablet sustained-release 12 hr 150 mg PO BID RF: 0 ferrous sulfate [FeroSul] 325 mg (65 mg iron) Tablet 1 tab PO BID RF: 0 Referrals: Corby Zurita MD [Primary Care Provider] -
[2018-10-20] MEDS: PROCHLORPERAZINE 10 MG/2 ML VIAL IV (12:01)
[2018-10-20 12:02] LABS: B Type Natriuretic Peptide < 100 (<100)
[2018-10-20] MEDS: HYDROMORPHONE 1 MG INJ 0.5 MG IV (12:02)
[2018-10-20 13:29] LABS: RBC Urine None Seen (0-5/HPF); WBC Urine 5-10/HPF (0-5/HPF)
[2018-10-20 13:30] LABS: Bacteria Urine Moderate (10-30); Culture Indicated Urine Specimen Cultured; Squamous Epithelial Cell Urine 0-1 /HPF (0-5/HPF); Uric Acid Crystals Urine Many
[2018-10-20] MEDS: KETOROLAC 60 MG/2 ML VIAL 15 MG IV (13:30)
== END 2018-10-20 14:39 | disposition home or self-care (01) ==
PROVIDERS: Emergency Provider Emergency Medicine; PCP Family Medicine
DX: N30.00 Acute cystitis without hematuria (principal); R11.2 Nausea with vomiting, unspecified; R06.02 Shortness of breath
CPT/HCPCS: 36591; 71046; 80053; 81003; 81015; 83690; 83880; 85025; 85610; 85730; 87077; 87086; 87147; 93005; 93010; 96361; 96374; 96375; 99284; 99285; J0780; J1170; J1885; J2405

== ENCOUNTER 2018-10-24 18:07 | Emergency (ER) | payer MEDICARE, OTHER, SELFPAY ==
[2018-09-03 11:06] VITALS: BMI 26.3
--- NOTE | 2018-10-24 18:18 | ED_ITS ---
HPI - Nausea/Vomiting/Diarrhea General Chief complaint: Recheck/Abnormal Lab/Rx Stated complaint: lossing a pound a day Time Seen by Provider: 10/24/18 18:16 Source: patient and family Mode of arrival: ambulatory Limitations: no limitations History of Present Illness HPI Narrative: Patient comes back to the emergency department complaining that she is losing weight because she is not eating enough. Patient has had chronic nausea and vomiting for nearly a year, and has had a recent exacerbation, for which she was seen in the emergency department several days ago. Patient states that she felt well by the end of her emergency department stay, but that after she got home, her nausea recurred. She does note that when she takes her oral dissolving Zofran, her symptoms improved, and she can actually tolerate certain foods such as cottage cheese, chicken noodle soup, tomato soup. Patient states that unsure as to suite, but she thinks that if she diluted it, she might tolerated better. Patient states that the reason she is not eating much is that she does not feel like eating. Patient's states he gave her some kind of an appetite stimulator, but that this does seem to have worked. Patient den ies any abdominal pain. No fevers or chills. She states she feels weak and tired when she tries to get up. She does note that she has been mostly lying in bed for the last couple of weeks, and patient also had an extended period of time over the winter in early spring where she did same. No chest pain. No dysuria. No blood in stool or vomit. No diarrhea. No other complaints at this time. Patient states that right now, she is not feeling nauseated. Related Data Home Medications Medication Instructions Recorded Confirmed Diabetic Shoes 1 pkg MISCELLANEOUS DIRECTED 01/14/18 10/09/18 Walker: Four Wheel 1 u MISCELLANEOUS DIRECTED 01/14/18 10/09/18 bupropion HCl 150 mg PO BID 03/05/18 10/09/18 ferrous sulfate [FeroSul] 1 tab PO BID 08/04/18 10/09/18 aspirin 81 mg PO DAILY 08/28/18 10/09/18 lovastatin 5 mg PO Q OTHER DAY 08/28/18 10/09/18 Previous Rx's Medication Instructions Recorded levothyroxine 175 mcg tablet 175 mcg PO DAILY #90 tab 07/22/18 blood-glucose meter kit #1 each 08/27/18 midodrine 10 mg PO TID #0 tab 09/01/18 potassium chloride [Klor-Con M10] 10 meq PO DAILYCC #30 tab 09/01/18 sodium citrate-citric acid 10 ml PO Q6HR #15 ml 09/01/18 [id number] See Rx Instructions .ROUTE 09/27/18 50 mg-325 mg-40 mg tablet .COMPLEX PRN #60 tab citalopram 20 mg tablet 40 mg PO DAILY #60 tab 09/27/18 carbidopa 25 mg-levodopa 100 mg 1 tab PO TID #90 tab 10/02/18 tablet levofloxacin 250 mg tablet 250 mg PO DAILY #7 tab 10/07/18 temazepam 15 mg capsule 15 mg PO BEDTIME PRN #20 cap 10/07/18 ondansetron 4 mg PO Q6H PRN #30 tab 10/20/18 sulfamethoxazole-trimethoprim 1 tab PO BID #14 tab 10/20/18 [Bactrim DS] blood sugar diagnostic strips #100 each 10/22/18 gabapentin 600 mg tablet 600 - 1,200 mg PO TID #90 tab 10/22/18 lancets #100 each 10/22/18 hydrocodone 5 mg-acetaminophen 325 See Rx Instructions PO QID PRN 10/24/18 mg tablet #112 tab Allergies Allergy/AdvReac Type Severity Reaction Status Date / Time amoxicillin [From AUGMENTIN] Allergy Mild RASH Verified 10/07/18 14:51 clavulanic acid Allergy Mild RASH Verified 10/07/18 14:51 [From AUGMENTIN] metformin [METFORMIN] AdvReac Severe SWELLING Verified 10/07/18 14:51 Review of Systems Constitutional Denies chills, Denies fever(s), Denies lethargy and Denies weakness Eyes Denies change in vision, Denies eye discharge, Denies irritation and Denies loss of vision ENT Ears, Nose, Mouth, and Throat: Denies change in voice, Denies neck pain and Denies sore throat Cardiovascular Denies chest pain, Denies irregular heart rhythm, Denies lightheadedness, Denies palpitations, Denies dyspnea, Denies dyspnea on exertion and Denies orthopnea Respiratory Denies cough, Denies dyspnea, Denies dyspnea on exertion and Denies wheezing Gastrointestinal Gastrointestinal: Denies abdominal pain, Denies change in bowel habits, Denies diarrhea, Reports nausea and Reports vomiting Comments: Decreased appetite Genitourinary Denies hematuria, Denies flank pain, Denies urinary incontinence and Denies urinary urgency Musculoskeletal Denies neck pain Integumentary/Breasts Denies pruritus, Denies erythema, Denies rash and Denies wounds Neurologic Denies confusion, Denies loss of vision and Denies weakness Psychiatric Denies anxiety, Denies confusion, Denies depression, Denies homicidal ideation and Denies suicidal ideation Endocrine Denies palpitations Hematologic/Lymphatic Denies easy bruising Allergic/Immunologic Denies wheezing [facility] Medical History Hyperthyroidism (Chronic ~2004) Gastric ulcer (Chronic ~1991) History of irregular menstrual cycles (Chronic ~1989) Ovarian cyst (Chronic ~1999) Painful menstrual periods (Chronic ~1978) Anemia (Chronic ~2004) Chicken pox (Resolved) Measles (Resolved) Mumps (Resolved) Chronic back pain (Chronic ~2009) Foot pain (Chronic ~2010) Fractures (Chronic ~2011) Neuropathy (Chronic ~2008) Headache (Chronic ~1989) Migraines (Chronic ~1989) Restless leg syndrome (Chronic ~1989) Lupus (Chronic ~1999) Arthritis (Chronic) Surgical History H/O hernia repair (Acute) S/P foot surgery, right (Acute) Gastric bypass status for obesity (Acute) Hx of resection of stomach (Resolved) Family History Grandfather No problems noted. Grandmother No problems noted. Mother No problems noted. Son Diabetes mellitus Social History marital status: household members: spouse and children Smoking Status: Never smoker alcohol intake: never substance use type: does not use Social History marital status: household members: spouse and children Smoking Status: Never smoker alcohol intake: never substance use type: does not use Exam Initial Vital Signs Initial Vital Signs: Vital Signs Temperature 97.7 F 10/24/18 18:19 Pulse Rate 92 H 10/24/18 18:19 Respiratory Rate 19 06/27/19 18:19 Blood Pressure 144/82 H 10/24/18 18:19 Pulse Oximetry 100 10/24/18 18:19 Const General: cooperative and well developed Nutritional Appearance: well nourished Orientation: alert, awake, oriented x3 and not confused [facility] Head: normocephalic and atraumatic Ears: external ears normal and TM's normal bilaterally Nose: external nose normal and No nasal discharge Face and sinus: sinuses nontender, face symmetric, no sinus tenderness and No dry mucous membranes Mouth: oral mucosae normal and moist mucous membranes Teeth and gingiva: dentition normal Throat: tonsils normal and uvula midline Eyes General: appearance normal, both eyes and all related structures Eyelids: eyelids normal Conjunctivae: conjunctivae normal Sclera: sclerae normal Pupils: PERRL EOM: EOM intact bilaterally Neck Neck: normal visual inspection, trachea midline, No lymphadenopathy, No midline deformity and No JVD Lymphatic: No lymphedema Chest Chest: normal inspection of the chest Resp Effort & Inspection: normal respiratory effort, able to speak in complete sentences, no respiratory distress and no use of accessory muscles Auscultation: clear to auscultation bilaterally, no rales, no rhonchi and no wheezes Cardio Rate: regular rate Rhythm: regular rhythm Heart Sounds: no click, no gallops, no murmurs and no rubs Pulses: normal peripheral pulses GI Inspection: non-distended Palpation: soft, no hepatosplenomegaly, No guarding, No pulsatile mass and No tender Auscultation: normal bowel sounds Back/Spine/Pelvis Back: No CVA tenderness Cervical Spine: cervical ROM normal and No pain with cervical ROM Thoracic/Lumbar Spine: thoracic and lumbar spine normal to inspection Skin General: no rashes or lesions noted, No jaundice and No petechiae Neuro General: alert, oriented x3, gait normal and no focal motor deficits Speech: speech normal Extrem General: full ROM, no clubbing, cyanosis or edema, no pedal edema and no calf tenderness Psych Appearance: well kempt Mental Status: mental status grossly normal Attitude: cooperative Thought Content: normal and suicidality Judgment: judgment good Course Course Narrative: Patient was hemodynamically stable in the emergency department, and her labs were unremarkable. 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 food and liquid with the Zofran. I discussed with her that she is going to have to decide whether she can overcome the lack of appetite and eat enough to sustain herself. If not, she will need to speak with Dr. Zurita about the possibility of surgery consult for G-tube, if this is an option she even wants to consider. The issue at this point is not whether the patient can hold the food down, because she has been able to do so repeatedly in the emergency department and per her in the hospital and in the assisted living facility where she has been before. I have discussed with the patient's the need for a positive mind set, as he has repeatedly stated that ?nothing is working ?in con tradiction with the patient's statements that she can indeed hold down certain foods. I have discussed also the importance of eating strategy, which may include things like diluting the ensure or eating very small amounts more frequently. We have also discussed managing anxiety over being at home verses in a medical facility with a perceived safety net. Patient is scheduled to see a dietitian in 4 days. She should also follow up with Dr. Zurita tomorrow or early next week to come up with a plan to manage the situation. Orders Ordered: Discontinued Medications Hydromorphone HCl (Dilaudid) 0.5 mg IV NOW ONE Stop: 10/24/18 20:28 Last Admin: 10/24/18 20:28 Dose: 0.5 mg Sodium Chloride (Normal Saline 0.9%) 1,000 mls @ 1,000 mls/hr IV BOLUS ONE Stop: 10/24/18 19:18 Last Infusion: 10/24/18 19:26 Dose: 0 mls/hr Admin: 10/24/18 18:30 Dose: 1,000 mls/hr Ondansetron HCl (Zofran) 4 mg IV NOW ONE Stop: 10/24/18 18:20 Last Admin: 10/24/18 18:30 Dose: 4 mg Vital Signs - 8 hr 10/24/18 18:19 Temperature 97.7 F Pulse Rate 92 H Respiratory Rate 19 Blood Pressure 144/82 H Pulse Oximetry 100 MDM - Nausea/Vomiting/Diarrhea Medical Records Attestation: I reviewed the patient's medical records. Lab Data Attestation: I reviewed the patient's lab results. Result diagrams: 10/24/18 18:46 10/24/18 18:46 Lab Results 10/24/18 10/24/18 Range/Units 18:46 18:46 WBC 7.7 (4.5-11.0) X10^3/uL RBC 4.17 (4.0-5.2) X10^6/uL Hgb 12.8 (12.0-16.0) g/dL Hct 38.7 (36-46) % MCV 92.7 (80-100) fL MCH 30.6 (26-34) PG MCHC 33.1 (30-36) % RDW 16.7 H (11.6-14.8) % Plt Count 292 (150-400) X10^3/uL Neut % (Auto) 61.9 (50-75) % Lymph % (Auto) 28.0 (25-40) % Moody % (Auto) 7.7 (3-14) % Eos % (Auto) 1.5 L (2-4) % Baso % (Auto) 0.9 (0-2) % Neut # (Auto) 4800 (1393-8555) /uL Lymph # (Auto) 2200 (5296-4447) /uL Moody # (Auto) 600 (0-900) /uL Eos # (Auto) 100 (0-450) /uL Baso # (Auto) 100 (0-100) /uL Sodium 139 (137-145) mmol/L Potassium 4.5 (3.4-5.1) mmol/L Chloride 107 (98-107) mmol/L Carbon Dioxide 18 L (22-32) mmol/L BUN 19 H (7-17) mg/dL Creatinine 0.60 (0.52-1.04) mg/dL Estimated GFR > 60.0 (>60) mL/min BUN/Creatinine Ratio 31.7 H (6-22) Glucose 133 H (80-110) mg/dL Calcium 10.1 (8.4-10.2) mg/dL Total Bilirubin 0.5 (0.2-1.3) mg/dL AST 15 (14-36) IU/L ALT < 6 L (9-52) IU/L Alkaline Phosphatase 72 (38-126) U/L Total Protein 7.6 (6.3-8.2) g/dL Albumin 4.3 (3.5-5.0) g/dL Globulin 3.3 (1.7-4.1) g/dL Albumin/Globulin Ratio 1.3 (1.0-2.8) Discharge Plan Departure Patient Disposition: Home Clinical Impression: Decrease in appetite Vomiting Qualifiers: Vomiting type: unspecified Vomiting Intractability: non-intractable Nausea presence: with nausea Qualified Code(s): R11.2 - Nausea with vomiting, unspecified Discharge Date/Time: 10/24/18 20:53 Interventions: ED Discharge Assessment Last Done: 10/24/18 20:52 Instructions: DI for Vomiting -- Adult, DI for Poor Appetite Activity Restrictions/Additional Instructions: Her labs look fine today. It is very important that you make a plan for food intake to make sure that you are getting a reasonable amount to eat. This may include limiting your diet to the thing she can tolerate best. It also may involve eating small amounts at a time more frequently. You should also stay on the Zofran regularly. Please keep your appointment with the workforce management coordinator, and also make an appointment to see Dr. Zuleta to discuss a long-term home plans for your ongoing nausea. If you feel that you are still not able to overcome your lack of appetite and get enough food in, then you need to speak with Dr. Zurita about surgery referral to discuss having a feeding tube put in if this is an option you want to explore. Otherwise, your nausea is reasonably under control at home and it is now up to you to find any eating plan that works. He may also discussed with Dr. Zurita the option of an appetite stimulant and possibly, an antianxiety medication. Prescriptions: No Action levothyroxine [Synthroid] 175 mcg tablet 175 mcg PO DAILY Qty: 90 RF: 1 blood-glucose meter [Blood Glucose Monitoring] kit .ROUTE .MEDSUPPLY Qty: 1 RF: 0 citalopram 20 mg tablet 40 mg PO DAILY Qty: 60 RF: 5 iuswtqqxjf-euhgrvplrzzbc-adjq 50-325-40 mg tablet See Rx Instructions .ROUTE .COMPLEX PRN (Reason: Headache) Qty: 60 RF: 0 carbidopa-levodopa 25-100 mg tablet 1 tab PO TID Qty: 90 RF: 1 gabapentin 600 mg tablet 600 - 1,200 mg PO TID Qty: 90 RF: 0 Blood Glucose Test strip .ROUTE .MEDSUPPLY Qty: 100 RF: 3 lancets misc .ROUTE .MEDSUPPLY Qty: 100 RF: 3 hydrocodone-acetaminophen 5-325 mg tablet See Rx Instructions PO QID PRN (Reason: pain) Qty: 112 RF: 0 levofloxacin 250 mg tablet 250 mg PO DAILY Qty: 7 RF: 0 temazepam 15 mg capsule 15 mg PO BEDTIME PRN (Reason: Sleep) Qty: 20 RF: 0 Walker: Four Wheel 1 u miscellaneous DIRECTED RF: 0 Diabetic Shoes 1 pkg miscellaneous DIRECTED RF: 0 lovastatin 10 mg tablet 5 mg PO Q OTHER DAY RF: 0 aspirin 81 mg Tablet,Delayed Release (Dr/Ec) 81 mg PO DAILY RF: 0 potassium chloride [Klor-Con M10] 10 mEq Tablet,Er Particles/Crystals 10 meq PO DAILYCC Qty: 30 RF: 0 midodrine 5 mg tablet 10 mg PO TID Qty: 0 RF: 0 sodium citrate-citric acid 500-334 mg/5 mL Solution 10 ml PO Q6HR Qty: 15 RF: 0 bupropion HCl 150 mg tablet sustained-release 12 hr 150 mg PO BID RF: 0 ferrous sulfate [FeroSul] 325 mg (65 mg iron) Tablet 1 tab PO BID RF: 0 sulfamethoxazole-trimethoprim [Bactrim DS] 800-160 mg tablet 1 tab PO BID Qty: 14 RF: 0 ondansetron 4 mg tablet,disintegrating 4 mg PO Q6H PRN (Reason: nausea and vomiting) Qty: 30 RF: 0 Referrals: Corby Zurita MD [Primary Care Provider] -
[2018-10-24 18:19] VITALS: BP 144/82; PULSE 92; RESP 19; TEMP 36.5; O2SAT 100; BMI 24.5
--- NOTE | 2018-10-24 18:22 | PC.NURSE ---
Pt states that she is losing approx 1 lb /day,pt c/o chronic head and back pain
[2018-10-24] MEDS: ONDANSETRON 4 MG/2 ML INJ IV (18:30)
[2018-10-24] MEDS: SODIUM CHLORIDE 0.9% 1,000 ML 1000 ML IV (18:30)
[2018-10-24 18:55] LABS: Add Manual Diff / Slide Review NO; Basophils Absolute Auto 100 /uL (0-100); Basophils Percent Auto 0.9 % (0-2); Eosinophils Absolute Auto 100 /uL (0-450); Eosinophils Percent Auto 1.5 % (2-4); Hematocrit 38.7 % (36-46); Hemoglobin 12.8 g/dL (12.0-16.0); Lymphocytes Absolute Auto 2200 /uL (1100-4500); Mean Corpuscular HGB Conc 33.1 % (30-36); Mean Corpuscular Hemoglobin 30.6 PG (26-34); Mean Corpuscular Volume 92.7 fL (80-100); Monocytes Absolute Auto 600 /uL (0-900); Monocytes Percent Auto 7.7 % (3-14); Neutrophils Absolute Auto 4800 /uL (1500-7000); Neutrophils Percent Auto 61.9 % (50-75); Platelet Count 292 X10^3/uL (150-400); Red Blood Cell Count 4.17 X10^6/uL (4.0-5.2); Red Cell Distribution Width 16.7 % (11.6-14.8); White Blood Cell Count 7.7 X10^3/uL (4.5-11.0)
[2018-10-24 19:06] LABS: Albumin 4.3 g/dL (3.5-5.0); Albumin Globulin Ratio 1.3 (1.0-2.8); Alkaline Phosphatase 72 U/L (38-126); Aspartate Aminotransferase 15 IU/L (14-36); BUN Creatinine Ratio 31.7 (6-22); Bilirubin Total 0.5 mg/dL (0.2-1.3); Blood Urea Nitrogen 19 mg/dL (7-17); Calcium 10.1 mg/dL (8.4-10.2); Carbon Dioxide 18 mmol/L (22-32); Chloride 107 mmol/L (98-107); Estimated Glomerular Filt Rate > 60.0 mL/min (>60); Globulin 3.3 g/dL (1.7-4.1); Glucose 133 mg/dL (80-110); HEMOLYSIS < 15 (0-50); Potassium 4.5 mmol/L (3.4-5.1); Sodium 139 mmol/L (137-145); Total Protein 7.6 g/dL (6.3-8.2)
[2018-10-24 19:19] LABS: Alanine Aminotransferase < 6 IU/L (9-52)
[2018-10-24 19:59] VITALS: BP 161/73; PULSE 70; RESP 14; O2SAT 100
[2018-10-24] MEDS: HYDROMORPHONE 1 MG INJ 0.5 MG IV (20:28)
[2018-10-24 20:47] VITALS: BP 145/73; PULSE 74; RESP 12; O2SAT 100
== END 2018-10-24 20:53 | disposition home or self-care (01) ==
PROVIDERS: Emergency Provider Emergency Medicine; PCP Family Medicine
DX: R11.2 Nausea with vomiting, unspecified (principal); R63.0 Anorexia; R53.1 Weakness; R00.0 Tachycardia, unspecified; R03.0 Elevated blood-pressure reading, without diagnosis of hypertension
CPT/HCPCS: 36415; 80053; 85025; 93005; 93010; 96361; 96374; 96375; 99283; 99284; J1170; J2405

== ENCOUNTER 2018-11-05 09:46 | Observation (INO) | payer MEDICARE, OTHER, SELFPAY ==
[2018-09-03 11:06] VITALS: BMI 26.3
[2018-11-05 09:46] VITALS: BP 104/83; PULSE 92; RESP 18; TEMP 36.9; O2SAT 98
--- NOTE | 2018-11-05 09:57 | DI.RAD.S_ITS ---
PROCEDURE: XR SHOULDER RT MIN 2V INDICATIONS: fall TECHNIQUE: 2 views of the shoulder were acquired. COMPARISON: None. FINDINGS: Bones: No fractures or dislocations. No suspicious bony lesions. Visualized ribs appear intact. Mild periarticular osteophyte formation at the acromioclavicular joint and glenohumeral joints. Soft tissues: No suspicious soft tissue calcifications. IMPRESSION: Osteoarthritis. No acute fracture. No osseous lesion. If symptoms and/or clinical suspicion for pathology persist, further assessment with repeat, or advanced imaging (e.g., CT, MRI, or bone scan) may be helpful for further assessment. Dictated by: Yen Aly M.D. on 11/05/2018 at 10:24 Approved by: Yen Aly M.D. on 11/05/2018 at 10:24
--- NOTE | 2018-11-05 09:57 | DI.RAD.S_ITS ---
PROCEDURE: XR TIBIA FIBULA RT 2V INDICATIONS: fall TECHNIQUE: 2 views of the tibia and fibula were acquired. COMPARISON: [facility], CR, TIB/FIB 2V RIGHT, 09/11/2013, 10:14. FINDINGS: Bones: Bony step-off involves the fibular neck/head junction. Soft tissues: No suspicious soft tissue calcifications or masses. IMPRESSION: Mildly displaced fibular head/neck junction fracture. Dictated by: Yen Aly M.D. on 11/05/2018 at 10:24 Approved by: Yen Aly M.D. on 11/05/2018 at 10:27
--- NOTE | 2018-11-05 10:00 | ED.DIZZY ---
HPI - Dizziness General Chief Complaint: Fall Stated Complaint: multiple falls Time Seen by Provider: 11/05/18 09:53 Source: patient and EMS Mode of arrival: EMS Limitations: no limitations History of Present Illness HPI Narrative: Patient comes emergency department complaining of multiple falls in the last 12 hours. She denies focal weakness, other than her legs wanting to ?give out?. This has happened before, but patient states that has been a while. Patient states she does not know why her legs are weak. Patient states she injured her left lower leg and her right shoulder and neck during the falls. She did not hit her head or lose consciousness as far she can tell. Patient states that she has been doing well with her nausea and vomiting, and has been able to hold small amounts of food and liquids down at a time. No fevers or chills. No diarrhea. No dysuria. No chest pain or shortness of breath. No other complaints at this time. Related Data Home Medications Medication Instructions Recorded Confirmed Diabetic Shoes 1 pkg MISCELLANEOUS DIRECTED 01/14/18 11/05/18 Walker: Four Wheel 1 u MISCELLANEOUS DIRECTED 01/14/18 11/05/18 bupropion HCl 150 mg PO BID 03/05/18 11/05/18 ferrous sulfate [FeroSul] 1 tab PO BID 08/04/18 11/05/18 aspirin 81 mg PO DAILY 08/28/18 11/05/18 lovastatin 5 mg PO Q OTHER DAY 08/28/18 11/05/18 hydrocodone-acetaminophen 1 - 2 tab PO QID PRN 11/05/18 11/05/18 midodrine 10 mg PO TID 11/05/18 11/05/18 Previous Rx's Medication Instructions Recorded levothyroxine 175 mcg tablet 175 mcg PO DAILY #90 tab 07/22/18 blood-glucose meter kit #1 each 08/27/18 potassium chloride [Klor-Con M10] 10 meq PO DAILYCC #30 tab 09/01/18 [id number] See Rx Instructions .ROUTE 09/27/18 50 mg-325 mg-40 mg tablet .COMPLEX PRN #60 tab citalopram 20 mg tablet 40 mg PO DAILY #60 tab 09/27/18 carbidopa 25 mg-levodopa 100 mg 1 tab PO TID #90 tab 06/05/19 tablet ondansetron 4 mg PO Q6H PRN #30 tab 10/20/18 blood sugar diagnostic strips #100 each 10/22/18 gabapentin 600 mg tablet 600 - 1,200 mg PO TID #90 tab 10/22/18 lancets #100 each 10/22/18 temazepam 15 mg capsule 15 mg PO BEDTIME PRN #20 cap 11/05/18 Allergies Allergy/AdvReac Type Severity Reaction Status Date / Time amoxicillin [From AUGMENTIN] Allergy Mild RASH Verified 10/30/18 11:56 clavulanic acid Allergy Mild RASH Verified 10/30/18 11:56 [From AUGMENTIN] metformin [METFORMIN] AdvReac Severe SWELLING Verified 10/30/18 11:56 Review of Systems Review of Systems ROS Unobtainable: All systems reviewed & are unremarkable except as noted in HPI and below Constitutional Denies chills, Denies fever(s), Denies lethargy and Denies weakness Eyes Denies change in vision, Denies eye discharge, Denies irritation and Denies loss of vision ENT Ears, Nose, Mouth, and Throat: Denies change in voice, Denies neck pain and Denies sore throat Cardiovascular Denies chest pain, Denies irregular heart rhythm, Denies lightheadedness, Denies palpitations, Denies dyspnea, Denies dyspnea on exertion and Denies orthopnea Respiratory Denies cough, Denies dyspnea, Denies dyspnea on exertion and Denies wheezing Gastrointestinal Gastrointestinal: Denies abdominal pain, Denies change in bowel habits, Denies diarrhea, Denies nausea and Denies vomiting Genitourinary Denies hematuria, Denies flank pain, Denies urinary incontinence and Denies urinary urgency Musculoskeletal Denies neck pain Integumentary/Breasts Denies pruritus, Denies erythema, Denies rash and Denies wounds Neurologic Denies confusion, Denies loss of vision and Denies weakness Comments: Bilateral lower extremity weakness Psychiatric Denies anxiety, Denies confusion, Denies depression, Denies homicidal ideation and Denies suicidal ideation Endocrine Denies palpitations Hematologic/Lymphatic Denies easy bruising Allergic/Immunologic Denies wheezing PFSH Medical History Hyperthyroidism (Chronic ~2004) Gastric ulcer (Chronic ~1991) History of irregular menstrual cycles (Chronic ~1989) Ovarian cyst (Chronic ~1999) Painful menstrual periods (Chronic ~1978) Anemia (Chronic ~2004) Chicken pox (Resolved) Measles (Resolved) Mumps (Resolved) Chronic back pain (Chronic ~2009) Foot pain (Chronic ~2010) Fractures (Chronic ~2011) Neuropathy (Chronic ~2008) Headache (Chronic ~1989) Migraines (Chronic ~1989) Restless leg syndrome (Chronic ~1989) Lupus (Chronic ~1999) Arthritis (Chronic) Surgical History H/O hernia repair (Acute) S/P foot surgery, right (Acute) Gastric bypass status for obesity (Acute) Hx of resection of stomach (Resolved) Family History Grandfather No problems noted. Grandmother No problems noted. Mother No problems noted. Son Diabetes mellitus Social History marital status: household members: spouse and children Smoking Status: Never smoker alcohol intake: never substance use type: does not use Family History Grandfather No problems noted. Grandmother No problems noted. Mother No problems noted. Son Diabetes mellitus Social History marital status: household members: spouse and children Smoking Status: Never smoker alcohol intake: never substance use type: does not use Exam Initial Vital Signs Initial Vital Signs: Vital Signs Temperature 98.4 F 11/05/18 09:46 Pulse Rate 92 H 11/05/18 09:46 Respiratory Rate 18 11/05/18 09:46 Blood Pressure 104/83 11/05/18 09:46 Pulse Oximetry 98 11/05/18 09:46 Const General: cooperative and well developed Nutritional Appearance: well nourished Orientation: alert, awake, oriented x3 and not confused [facility] Head: normocephalic and atraumatic Ears: external ears normal and TM's normal bilaterally Nose: external nose normal and No nasal discharge Face and sinus: sinuses nontender, face symmetric, no sinus tenderness and No dry mucous membranes Mouth: oral mucosae normal and moist mucous membranes Teeth and gingiva: dentition normal Throat: tonsils normal and uvula midline Eyes General: appearance normal, both eyes and all related structures Eyelids: eyelids normal Conjunctivae: conjunctivae normal Sclera: sclerae normal Pupils: PERRL EOM: EOM intact bilaterally Neck Neck: normal visual inspection, trachea midline, No lymphadenopathy, No midline deformity and No JVD Lymphatic: No lymphedema Chest Chest: normal inspection of the chest Resp Effort & Inspection: normal respiratory effort, able to speak in complete sentences, no respiratory distress and no use of accessory muscles Auscultation: clear to auscultation bilaterally, no rales, no rhonchi and no wheezes Cardio Rate: regular rate Rhythm: regular rhythm Heart Sounds: no click, no gallops, no murmurs and no rubs Pulses: normal peripheral pulses GI Inspection: non-distended Palpation: soft, no hepatosplenomegaly, No guarding, No pulsatile mass and No tender Auscultation: normal bowel sounds Back/Spine/Pelvis Back: No CVA tenderness Cervical Spine: cervical ROM normal and No pain with cervical ROM Thoracic/Lumbar Spine: thoracic and lumbar spine normal to inspection Skin General: no rashes or lesions noted, No jaundice and No petechiae Neuro General: alert, oriented x3, gait normal and no focal motor deficits Speech: speech normal Extrem General: no pedal edema and no calf tenderness Other: Patient has mild, nonpitting edema and moderate tenderness over her superior lateral left lower leg. She has tenderness without edema or deformity over her right shoulder. Psych Appearance: well kempt Mental Status: mental status grossly normal Attitude: cooperative Thought Content: normal and suicidality Judgment: judgment good Course Course Narrative: patient was worked up with laboratory studies and x-ray of the left tib-fib and right shoulder. Labs were unremarkable. Patient's left tib-fib x-raydid show a proximal fibular fracture, and patient was put in a knee immobilizer for this. I spoke with the patient's primary care physician, Dr. Zurita, as I did not feel the patient could be sent home. The patient has had multiple visits to the emergency department in recent weeks, and has a history of not doing well at home. Given the patient's repeated falls and now the fibular fracture , I felt the patient would need to be assessed by PT and OT, as well as social work and/or office workforce planner. Dr. Zurita did agree to admit the patient to his service. Orders Ordered: ED Orders 11/05/18 10:50 Complete Blood Count AUTO DIFF Stat Comprehensive Metabolic Panel Stat Lipase Stat Partial Thromboplastin Time Stat Prothrombin Time INR Stat 11/05/18 11:45 EKG-12 Lead Stat 11/05/18 12:27 Education, smoking cessation ONGOING 11/05/18 12:28 Consult to Dietitian, Adult Routine Consult to Discharge Planning Routine Consult to Occupational Therapy Evaluate & Treat Consult to Physical Therapy Evaluate & Treat Consult to Physician Routine Consult to Manager Sales Support Routine 11/05/18 13:14 Consult to Oncology Routine 11/05/18 13:15 Consult to Physician Routine 11/05/18 14:20 UA Complete [Urinalysis and Microscopic] Routine Urine Culture Routine 11/05/18 15:04 Consult to Orthopedic Surgery Routine 11/06/18 05:00 Basic Metabolic Panel DAILY Hemoglobin A1C% w Est Avg Glu Routine 11/06/18 05:30 Complete Blood Count AUTO DIFF DAILY 11/07/18 05:00 Basic Metabolic Panel DAILY 11/07/18 05:30 Complete Blood Count AUTO DIFF DAILY 11/08/18 05:00 Basic Metabolic Panel DAILY 11/08/18 05:30 Complete Blood Count AUTO DIFF DAILY 11/09/18 05:00 Basic Metabolic Panel DAILY 11/09/18 05:30 Complete Blood Count AUTO DIFF DAILY Acetaminophen (Tylenol) 650 mg PO Q6HR PRN PRN Reason: As Needed for Fever/Mild Pain Acetaminophen/Butalbital/Caffeine (Fioricet) 1 each PO Q4H PRN PRN Reason: Headache Hydrocodone Bitart/Acetaminophen ([place] 5/325) 2 tab PO Q6HR PRN PRN Reason: Pain, Severe (7-10) Last Admin: 11/05/18 14:33 Dose: 2 tab Aspirin (Aspirin Ec) 81 mg PO DAILY [facility] Bupropion HCl (Wellbutrin Sr) 150 mg PO BID [facility] Carbidopa/Levodopa (Sinemet 25-100 Tab) 1 each PO TID [facility] Citalopram Hydrobromide (Celexa) 40 mg PO DAILY [facility] Enoxaparin Sodium (Lovenox) 40 mg SUBCUT DAILY [facility] Ferrous Sulfate (Ferrous Sulfate) 325 mg PO BID [facility] Gabapentin (Neurontin) 600 mg PO TID [facility] Sodium Chloride (Normal Saline 0.9%) 1,000 mls @ 125 mls/hr IV CONT [facility]ANCINE Last Admin: 11/05/18 15:53 Dose: 125 mls/hr Lovastatin (Mevacor) 5 mg PO Q48H [facility] Midodrine (Midodrine) 10 mg PO TID [facility] Ondansetron HCl (Zofran) 4 mg IV Q4HR PRN PRN Reason: Nausea And Vomiting Ondansetron HCl (Zofran Odt) 4 mg PO Q6H PRN PRN Reason: nausea and vomiting Potassium Chloride (Klor-Con M10) 10 meq PO DAILYCC [facility] Temazepam (Resoril) 30 mg PO BEDTIME PRN PRN Reason: Sleep Discontinued Medications Hydromorphone HCl (Dilaudid) 0.5 mg IV Q30MIN PRN PRN Reason: Pain, Severe (7-10) Stop: 11/05/18 18:00 Last Admin: 11/05/18 15:53 Dose: 0.5 mg Admin: 11/05/18 12:30 Dose: 0.5 mg Admin: 11/05/18 11:20 Dose: 0.5 mg Sodium Chloride (Normal Saline 0.9%) 1,000 mls @ 150 mls/hr IV BOLUS ONE Stop: 11/05/18 17:36 Last Infusion: 11/05/18 13:19 Dose: 150 mls/hr Admin: 11/05/18 11:20 Dose: 150 mls/hr Ondansetron HCl (Zofran) 4 mg IV NOW ONE Stop: 11/05/18 10:56 Last Admin: 11/05/18 11:20 Dose: 4 mg Vital Signs - 8 hr 11/05/18 11:36 11/05/18 13:10 11/05/18 15:56 Temperature 98.3 F Pulse Rate 87 78 71 Respiratory Rate 23 17 16 Blood Pressure 115/66 Blood Pressure [Left Arm] 114/63 107/62 Pulse Oximetry 98 98 100 MDM - Dizziness Medical Records Attestation: I reviewed the patient's medical records. Lab Data Attestation: I reviewed the patient's lab results. Result diagrams: 11/05/18 10:50 11/05/18 10:50 Lab Results 11/05/18 11/05/18 11/05/18 Range/Units 10:50 10:50 10:50 WBC 9.0 (4.5-11.0) X10^3/uL RBC 3.51 L (4.0-5.2) X10^6/uL Hgb 10.9 L (12.0-16.0) g/dL Hct 32.7 L (36-46) % MCV 93.0 (80-100) fL MCH 31.1 (26-34) PG MCHC 33.5 (30-36) % RDW 17.8 H (11.6-14.8) % Plt Count 310 (150-400) X10^3/uL Neut % (Auto) 65.4 (50-75) % Lymph % (Auto) 24.0 L (25-40) % Hart % (Auto) 7.8 (3-14) % Eos % (Auto) 2.2 (2-4) % Baso % (Auto) 0.6 (0-2) % Neut # (Auto) 5900 (2232-7599) /uL Lymph # (Auto) 2200 (5854-5277) /uL Hart # (Auto) 700 (0-900) /uL Eos # (Auto) 200 (0-450) /uL Baso # (Auto) 0 (0-100) /uL RBC Morphology See below Polychromasia 1+ H Hypochromasia 1+ H Anisocytosis 2+ H Microcytosis 1+ H Macrocytosis 1+ H Target Cells 1+ H PT 13.6 H (10.1-12.7) SECONDS INR 1.2 (0.9-1.3) APTT 32 (26.4-36.2) SECONDS Sodium 140 (137-145) mmol/L Potassium 4.2 (3.4-5.1) mmol/L Chloride 111 H (98-107) mmol/L Carbon Dioxide 19 L (22-32) mmol/L BUN 29 H (7-17) mg/dL Creatinine 0.90 (0.52-1.04) mg/dL Estimated GFR > 60.0 (>60) mL/min BUN/Creatinine Ratio 32.2 H (6-22) Glucose 130 H (80-110) mg/dL Calcium 9.2 (8.4-10.2) mg/dL Total Bilirubin 0.2 (0.2-1.3) mg/dL AST 17 (14-36) IU/L ALT < 6 L (9-52) IU/L Alkaline Phosphatase 55 (38-126) U/L Total Protein 6.3 (6.3-8.2) g/dL Albumin 3.4 L (3.5-5.0) g/dL Globulin 2.9 (1.7-4.1) g/dL Albumin/Globulin Ratio 1.2 (1.0-2.8) Lipase 72 (23-300) U/L Urine Color Urine Appearance Urine pH (4.5-8.0) Ur Specific [place] (1.000-1.035) Urine Protein (Negative) Urine Glucose (UA) (Negative) g/dL Urine Ketones (NEGATIVE) Urine Occult Blood (Negative) Urine Nitrate (Negative) Urine Bilirubin (NEGATIVE) Urine Urobilinogen (0.2) E.U./dL Ur Leukocyte Esterase (NEGATIVE) Urine RBC (0-5/HPF) Urine WBC (0-5/HPF) Ur Squamous Epith Cells (0-5/HPF) Ur Renal Epithelial Cell (0-1/HPF) Amorphous Sediment Urine Bacteria (None) Urine Mucus (Negative) Ur Culture Indicated? 11/05/18 Range/Units 14:20 WBC (4.5-11.0) X10^3/uL RBC (4.0-5.2) X10^6/uL Hgb (12.0-16.0) g/dL Hct (36-46) % MCV (80-100) fL MCH (26-34) PG MCHC (30-36) % RDW (11.6-14.8) % Plt Count (150-400) X10^3/uL Neut % (Auto) (50-75) % Lymph % (Auto) (25-40) % Hart % (Auto) (3-14) % Eos % (Auto) (2-4) % Baso % (Auto) (0-2) % Neut # (Auto) (6333-1725) /uL Lymph # (Auto) (6676-9003) /uL Hart # (Auto) (0-900) /uL Eos # (Auto) (0-450) /uL Baso # (Auto) (0-100) /uL RBC Morphology Polychromasia Hypochromasia Anisocytosis Microcytosis Macrocytosis Target Cells PT (10.1-12.7) SECONDS INR (0.9-1.3) APTT (26.4-36.2) SECONDS Sodium (137-145) mmol/L Potassium (3.4-5.1) mmol/L Chloride (98-107) mmol/L Carbon Dioxide (22-32) mmol/L BUN (7-17) mg/dL Creatinine (0.52-1.04) mg/dL Estimated GFR (>60) mL/min BUN/Creatinine Ratio (6-22) Glucose (80-110) mg/dL Calcium (8.4-10.2) mg/dL Total Bilirubin (0.2-1.3) mg/dL AST (14-36) IU/L ALT (9-52) IU/L Alkaline Phosphatase (38-126) U/L Total Protein (6.3-8.2) g/dL Albumin (3.5-5.0) g/dL Globulin (1.7-4.1) g/dL Albumin/Globulin Ratio (1.0-2.8) Lipase (23-300) U/L Urine Color Yellow Urine Appearance Cloudy Urine pH 5.0 (4.5-8.0) Ur Specific [place] 1.025 (1.000-1.035) Urine Protein Trace H (Negative) Urine Glucose (UA) Negative (Negative) g/dL Urine Ketones Negative (NEGATIVE) Urine Occult Blood Negative (Negative) Urine Nitrate Negative (Negative) Urine Bilirubin Negative (NEGATIVE) Urine Urobilinogen 0.2 (0.2) E.U./dL Ur Leukocyte Esterase Trace H (NEGATIVE) Urine RBC 0-1/hpf (0-5/HPF) Urine WBC 5-10/hpf H (0-5/HPF) Ur Squamous Epith Cells 1-5 /hpf (0-5/HPF) Ur Renal Epithelial Cell 0-1/hpf (0-1/HPF) Amorphous Sediment 3+ Urine Bacteria Few (2-10) H (None) Urine Mucus 1+ H (Negative) Ur Culture Indicated? Specimen cultured Imaging Data Left tib-fib x-ray: Radiologist's impression: PROCEDURE: XR TIBIA FIBULA RT 2V INDICATIONS: fall TECHNIQUE: 2 views of the tibia and fibula were acquired. COMPARISON: [facility], CR, TIB/FIB 2V RIGHT, 09/11/2013, 10:14. FINDINGS: Bones: Bony step-off involves the fibular neck/head junction. Soft tissues: No suspicious soft tissue calcifications or masses. IMPRESSION: Mildly displaced fibular head/neck junction fracture. Dictated by: Yen Aly M.D. on 11/05/2018 at 10:24 Approved by: Yen Aly M.D. on 11/05/2018 at 10:27 right shoulder x-ray: Radiologist's impression: PROCEDURE: XR SHOULDER RT MIN 2V INDICATIONS: fall TECHNIQUE: 2 views of the shoulder were acquired. COMPARISON: None. FINDINGS: Bones: No fractures or dislocations. No suspicious bony lesions. Visualized ribs appear intact. Mild periarticular osteophyte formation at the acromioclavicular joint and glenohumeral joints. Soft tissues: No suspicious soft tissue calcifications. IMPRESSION: Osteoarthritis. No acute fracture. No osseous lesion. If symptoms and/or clinical suspicion for pathology persist, further assessment with repeat, or advanced imaging (e.g., CT, MRI, or bone scan) may be helpful for further assessment. Dictated by: Yen Aly M.D. on 11/05/2018 at 10:24 Approved by: Yen Aly M.D. on 11/05/2018 at 10:24 CT scan - head: Radiologist's impression: PROCEDURE: CT HEAD/BRAIN WO CON INDICATIONS: fall TECHNIQUE: Noncontrast 4.5 mm thick angled axial sections acquired from the foramen magnum to the vertex, with coronal and sagittal reformats. For radiation dose reduction, the following was used: automated exposure control, adjustment of mA and/or kV according to patient size. COMPARISON: [facility], CT, CT HEAD/BRAIN WO CON, 01/14/2018, 14:34. FINDINGS: Image quality: Excellent. CSF spaces: Basal cisterns are patent. No extra-axial fluid collections. The ventricles are symmetric in size and shape. Brain: No intracranial bleeds or masses. There is cerebral volume loss for age, with resultant ventricular and sulcal prominence. There are periventricular and deep white matter chronic small vessel ischemic changes. There is intracranial internal carotid artery atherosclerosis. Skull and face: Calvarium and visualized facial bones appear intact, without suspicious lesions. Sinuses: Visualized sinuses and mastoids are clear. IMPRESSION: 1. No CT evidence of acute intracranial pathology. No significant changes from previous study. 2. Mild to moderate atrophy and chronic microvascular ischemic changes. Dictated by: Jose F Soto M.D. on 11/05/2018 at 10:56 Approved by: Jose F Soto M.D. on 11/05/2018 at 10:57 CT C-spine: Radiologist's impression: [address] [id number] [address] Scan Report Signed Patient: Veronique Gould LMR#: [id number] : 7Acct:[id number] Age/Sex: 73 / FDate of Service: 11/05/18 Loc: ED Accession Number: [id number] Procedure: CT cervical spine wo con Ordering Provider: Raisa Kee MD PROCEDURE: CT CERVICAL SPINE WO CON INDICATIONS: fall/neck pain TECHNIQUE: Noncontrast 3 mm thick sections acquired from the skull base to the T4 level. Sagittal and coronal reformats were then constructed. For radiation dose reduction, the following was used: automated exposure control, adjustment of mA and/or kV according to patient size. COMPARISON: [facility], CT, CT HEAD/BRAIN WO CON, 11/05/2018, 10:18. FINDINGS: Image quality: Excellent. Bones: No fractures or dislocations. There is post surgical changes with discectomy and anterior fusion at C3-C4. There is mild degenerative disease at C4-C5, C5-C6 and C6-C7. Visualized superior ribs are intact. Mild bilateral facet arthropathy at C3-C4 and C4-C5. Soft tissues: Prevertebral soft tissues are normal in thickness. No paravertebral hematomas. No apical pneumothoraces. There is a small air collection within the left C2 transverse foramen. IMPRESSION: 1. No fracture in cervical spine. 2. Degenerative and post surgical changes in cervical spine. 3. A small air collection within the left C2 transverse foramen, uncertain clinical significance. Dictated by: Isis Billy M.D. on 11/05/2018 at 11:01 Approved by: Isis Billy M.D. on 11/05/2018 at 11:06 ECG Data Attestation: I personally reviewed and interpreted this ECG as follows: ( see below) Interpretation: 12 lead EKG performed November 05/2019, at 11:45 a.m., as follows: Regular ventricular rhythm with a rate of 75 beats per minute CA interval 134 milliseconds QRS duration 83 millisecond QTC interval [address] T wave changes no ectopy interpretation: Normal sinus rhythm; no signs of acute ischemia; normal EKG as interpreted by ED MD. Discharge Plan Departure Patient Disposition: Admitted as Observation Clinical Impression: Weakness generalized Closed left fibular fracture Qualifiers: Encounter type: initial encounter Fibula location: proximal Fracture morphology: unspecified fracture morphology Qualified Code(s): S82.832A - Other fracture of upper and lower end of left fibula, initial encounter for closed fracture Falls Qualifiers: Encounter type: initial encounter Qualified Code(s): W19.XXXA - Unspecified fall, initial encounter Discharge Date/Time: 11/05/18 13:35 Interventions: ED Discharge Assessment Last Done: 11/05/18 12:29 Admit Date/Time: 11/05/18 12:00 Admit Provider: Corby Zurita
--- NOTE | 2018-11-05 10:11 | ED_ITS ---
HPI - Dizziness General Chief Complaint: Fall Stated Complaint: multiple falls Time Seen by Provider: 11/05/18 09:53 Source: patient and EMS Mode of arrival: EMS Limitations: no limitations History of Present Illness HPI Narrative: Patient comes emergency department complaining of multiple falls in the last 12 hours. She denies focal weakness, other than her legs wanting to ?give out?. This has happened before, but patient states that has been a while. Patient states she does not know why her legs are weak. Patient states she injured her left lower leg and her right shoulder and neck during the falls. She did not hit her head or lose consciousness as far she can tell. Patient states that she has been doing well with her nausea and vomiting, and has been able to hold small amounts of food and liquids down at a time. No fevers or chills. No diarrhea. No dysuria. No chest pain or shortness of breath. No other complaints at this time. Related Data Home Medications Medication Instructions Recorded Confirmed Diabetic Shoes 1 pkg MISCELLANEOUS DIRECTED 01/14/18 11/05/18 Walker: Four Wheel 1 u MISCELLANEOUS DIRECTED 01/14/18 11/05/18 bupropion HCl 150 mg PO BID 03/05/18 11/05/18 ferrous sulfate [FeroSul] 1 tab PO BID 08/04/18 11/05/18 aspirin 81 mg PO DAILY 08/28/18 11/05/18 lovastatin 5 mg PO Q OTHER DAY 08/28/18 11/05/18 hydrocodone-acetaminophen 1 - 2 tab PO QID PRN 11/05/18 11/05/18 midodrine 10 mg PO TID 11/05/18 11/05/18 Previous Rx's Medication Instructions Recorded levothyroxine 175 mcg tablet 175 mcg PO DAILY #90 tab 07/22/18 blood-glucose meter kit #1 each 08/27/18 potassium chloride [Klor-Con M10] 10 meq PO DAILYCC #30 tab 09/01/18 hyadubtoum-vvugtyxyaliuo-wneepgoh See Rx Instructions .ROUTE 09/27/18 50 mg-325 mg-40 mg tablet .COMPLEX PRN #60 tab citalopram 20 mg tablet 40 mg PO DAILY #60 tab 09/27/18 carbidopa 25 mg-levodopa 100 mg 1 tab PO TID #90 tab 06/05/19 tablet ondansetron 4 mg PO Q6H PRN #30 tab 10/20/18 blood sugar diagnostic strips #100 each 10/22/18 gabapentin 600 mg tablet 600 - 1,200 mg PO TID #90 tab 10/22/18 lancets #100 each 10/22/18 temazepam 15 mg capsule 15 mg PO BEDTIME PRN #20 cap 11/05/18 Allergies Allergy/AdvReac Type Severity Reaction Status Date / Time amoxicillin [From AUGMENTIN] Allergy Mild RASH Verified 10/30/18 11:56 clavulanic acid Allergy Mild RASH Verified 10/30/18 11:56 [From AUGMENTIN] metformin [METFORMIN] AdvReac Severe SWELLING Verified 10/30/18 11:56 Review of Systems Review of Systems ROS Unobtainable: All systems reviewed & are unremarkable except as noted in HPI and below Constitutional Denies chills, Denies fever(s), Denies lethargy and Denies weakness Eyes Denies change in vision, Denies eye discharge, Denies irritation and Denies loss of vision ENT Ears, Nose, Mouth, and Throat: Denies change in voice, Denies neck pain and Denies sore throat Cardiovascular Denies chest pain, Denies irregular heart rhythm, Denies lightheadedness, Denies palpitations, Denies dyspnea, Denies dyspnea on exertion and Denies orthopnea Respiratory Denies cough, Denies dyspnea, Denies dyspnea on exertion and Denies wheezing Gastrointestinal Gastrointestinal: Denies abdominal pain, Denies change in bowel habits, Denies diarrhea, Denies nausea and Denies vomiting Genitourinary Denies hematuria, Denies flank pain, Denies urinary incontinence and Denies urinary urgency Musculoskeletal Denies neck pain Integumentary/Breasts Denies pruritus, Denies erythema, Denies rash and Denies wounds Neurologic Denies confusion, Denies loss of vision and Denies weakness Comments: Bilateral lower extremity weakness Psychiatric Denies anxiety, Denies confusion, Denies depression, Denies homicidal ideation and Denies suicidal ideation Endocrine Denies palpitations Hematologic/Lymphatic Denies easy bruising Allergic/Immunologic Denies wheezing PFSH Medical History Hyperthyroidism (Chronic ~2004) Gastric ulcer (Chronic ~1991) History of irregular menstrual cycles (Chronic ~1989) Ovarian cyst (Chronic ~1999) Painful menstrual periods (Chronic ~1978) Anemia (Chronic ~2004) Chicken pox (Resolved) Measles (Resolved) Mumps (Resolved) Chronic back pain (Chronic ~2009) Foot pain (Chronic ~2010) Fractures (Chronic ~2011) Neuropathy (Chronic ~2008) Headache (Chronic ~1989) Migraines (Chronic ~1989) Restless leg syndrome (Chronic ~1989) Lupus (Chronic ~1999) Arthritis (Chronic) Surgical History H/O hernia repair (Acute) S/P foot surgery, right (Acute) Gastric bypass status for obesity (Acute) Hx of resection of stomach (Resolved) Family History Grandfather No problems noted. Grandmother No problems noted. Mother No problems noted. Son Diabetes mellitus Social History marital status: household members: spouse and children Smoking Status: Never smoker alcohol intake: never substance use type: does not use Family History Grandfather No problems noted. Grandmother No problems noted. Mother No problems noted. Son Diabetes mellitus Social History marital status: household members: spouse and children Smoking Status: Never smoker alcohol intake: never substance use type: does not use Exam Initial Vital Signs Initial Vital Signs: Vital Signs Temperature 98.4 F 11/05/18 09:46 Pulse Rate 92 H 11/05/18 09:46 Respiratory Rate 18 11/05/18 09:46 Blood Pressure 104/83 11/05/18 09:46 Pulse Oximetry 98 11/05/18 09:46 Const General: cooperative and well developed Nutritional Appearance: well nourished Orientation: alert, awake, oriented x3 and not confused [facility] Head: normocephalic and atraumatic Ears: external ears normal and TM's normal bilaterally Nose: external nose normal and No nasal discharge Face and sinus: sinuses nontender, face symmetric, no sinus tenderness and No dry mucous membranes Mouth: oral mucosae normal and moist mucous membranes Teeth and gingiva: dentition normal Throat: tonsils normal and uvula midline Eyes General: appearance normal, both eyes and all related structures Eyelids: eyelids normal Conjunctivae: conjunctivae normal Sclera: sclerae normal Pupils: PERRL EOM: EOM intact bilaterally Neck Neck: normal visual inspection, trachea midline, No lymphadenopathy, No midline deformity and No JVD Lymphatic: No lymphedema Chest Chest: normal inspection of the chest Resp Effort & Inspection: normal respiratory effort, able to speak in complete sentences, no respiratory distress and no use of accessory muscles Auscultation: clear to auscultation bilaterally, no rales, no rhonchi and no wheezes Cardio Rate: regular rate Rhythm: regular rhythm Heart Sounds: no click, no gallops, no murmurs and no rubs Pulses: normal peripheral pulses GI Inspection: non-distended Palpation: soft, no hepatosplenomegaly, No guarding, No pulsatile mass and No t rip Auscultation: normal bowel sounds Back/Spine/Pelvis Back: No CVA tenderness Cervical Spine: cervical ROM normal and No pain with cervical ROM Thoracic/Lumbar Spine: thoracic and lumbar spine normal to inspection Skin General: no rashes or lesions noted, No jaundice and No petechiae Neuro General: alert, oriented x3, gait normal and no focal motor deficits Speech: speech normal Extrem General: no pedal edema and no calf tenderness Other: Patient has mild, nonpitting edema and moderate tenderness over her superior lateral left lower leg. She has tenderness without edema or deformity over her right shoulder. Psych Appearance: well kempt Mental Status: mental status grossly normal Attitude: cooperative Thought Content: normal and suicidality Judgment: judgment good Course Course Narrative: patient was worked up with laboratory studies and x-ray of the left tib-fib and right shoulder. Labs were unremarkable. Patient's left tib-fib x-raydid show a proximal fibular fracture, and patient was put in a knee immobilizer for this. I spoke with the patient's primary care physician, Dr. Zurita, as I did not feel the patient could be sent home. The patient has had multiple visits to the emergency department in recent weeks, and has a histo ry of not doing well at home. Given the patient's repeated falls and now the fibular fracture , I felt the patient would need to be assessed by PT and OT, as well as social work and/or senior materials planner. Dr. Zurita did agree to admit the patient to his service. Orders Ordered: ED Orders 11/05/18 10:50 Complete Blood Count AUTO DIFF Stat Comprehensive Metabolic Panel Stat Lipase Stat Partial Thromboplastin Time Stat Prothrombin Time INR Stat 11/05/18 11:45 EKG-12 Lead Stat 11/05/18 12:27 Education, smoking cessation ONGOING 11/05/18 12:28 Consult to Dietitian, Adult Routine Consult to Discharge Planning Routine Consult to Occupational Therapy Evaluate & Treat Consult to Physical Therapy Evaluate & Treat Consult to Physician Routine Consult to Grades 9 Through 12 Teacher Routine 11/05/18 13:14 Consult to Oncology Routine 11/05/18 13:15 Consult to Physician Routine 11/05/18 14:20 UA Complete [Urinalysis and Microscopic] Routine Urine Culture Routine 11/05/18 15:04 Consult to Orthopedic Surgery Routine 11/06/18 05:00 Basic Metabolic Panel DAILY Hemoglobin A1C% w Est Avg Glu Routine 11/06/18 05:30 Complete Blood Count AUTO DIFF DAILY 11/07/18 05:00 Basic Metabolic Panel DAILY 11/07/18 05:30 Complete Blood Count AUTO DIFF DAILY 11/08/18 05:00 Basic Metabolic Panel DAILY 11/08/18 05:30 Complete Blood Count AUTO DIFF DAILY 11/09/18 05:00 Basic Metabolic Panel DAILY 11/09/18 05:30 Complete Blood Count AUTO DIFF DAILY Acetaminophen (Tylenol) 650 mg PO Q6HR PRN PRN Reason: As Needed for Fever/Mild Pain Acetaminophen/Butalbital/Caffeine (Fioricet) 1 each PO Q4H PRN PRN Reason: Headache Hydrocodone Bitart/Acetaminophen ([place] 5/325) 2 tab PO Q6HR PRN PRN Reason: Pain, Severe (7-10) Last Admin: 11/05/18 14:33 Dose: 2 tab Aspirin (Aspirin Ec) 81 mg PO DAILY [facility] Bupropion HCl (Wellbutrin Sr) 150 mg PO BID [facility] Carbidopa/Levodopa (Sinemet 25-100 Tab) 1 each PO TID [facility] Citalopram Hydrobromide (Celexa) 40 mg PO DAILY [facility] Enoxaparin Sodium (Lovenox) 40 mg SUBCUT DAILY [facility] Ferrous Sulfate (Ferrous Sulfate) 325 mg PO BID [facility] Gabapentin (Neurontin) 600 mg PO TID [facility] Sodium Chloride (Normal Saline 0.9%) 1,000 mls @ 125 mls/hr IV CONT FRANCINE Last Admin: 11/05/18 15:53 Dose: 125 mls/hr Lovastatin (Mevacor) 5 mg PO Q48H FRANCINE Midodrine (Midodrine) 10 mg PO TID FRANC[facility] Ondansetron HCl (Zofran) 4 mg IV Q4HR PRN PRN Reason: Nausea And Vomiting Ondansetron HCl (Zofran Odt) 4 mg PO Q6H PRN PRN Reason: nausea and vomiting Potassium Chloride (Klor-Con M10) 10 meq PO DAILYCC FRANCINE Temazepam (Resoril) 30 mg PO BEDTIME PRN PRN Reason: Sleep Discontinued Medications Hydromorphone HCl (Dilaudid) 0.5 mg IV Q30MIN PRN PRN Reason: Pain, Severe (7-10) Stop: 11/05/18 18:00 Last Admin: 11/05/18 15:53 Dose: 0.5 mg Admin: 11/05/18 12:30 Dose: 0.5 mg Admin: 11/05/18 11:20 Dose: 0.5 mg Sodium Chloride (Normal Saline 0.9%) 1,000 mls @ 150 mls/hr IV BOLUS ONE Stop: 11/05/18 17:36 Last Infusion: 11/05/18 13:19 Dose: 150 mls/hr Admin: 11/05/18 11:20 Dose: 150 mls/hr Ondansetron HCl (Zofran) 4 mg IV NOW ONE Stop: 11/05/18 10:56 Last Admin: 11/05/18 11:20 Dose: 4 mg Vital Signs - 8 hr 11/05/18 11:36 11/05/18 13:10 11/05/18 15:56 Temperature 98.3 F Pulse Rate 87 78 71 Respiratory Rate 23 17 16 Blood Pressure 115/66 Blood Pressure [Left Arm] 114/63 107/62 Pulse Oximetry 98 98 100 MDM - Dizziness Medical Records Attestation: I reviewed the patient's medical records. Lab Data Attestation: I reviewed the patient's lab results. Result diagrams: 11/05/18 10:50 11/05/18 10:50 Lab Results 11/05/18 11/05/18 11/05/18 Range/Units 10:50 10:50 10:50 WBC 9.0 (4.5-11.0) X10^3/uL RBC 3.51 L (4.0-5.2) X10^6/uL Hgb 10.9 L (12.0-16.0) g/dL Hct 32.7 L (36-46) % MCV 93.0 (80-100) fL MCH 31.1 (26-34) PG MCHC 33.5 (30-36) % RDW 17.8 H (11.6-14.8) % Plt Count 310 (150-400) X10^3/uL Neut % (Auto) 65.4 (50-75) % Lymph % (Auto) 24.0 L (25-40) % [place] % (Auto) 7.8 (3-14) % Eos % (Auto) 2.2 (2-4) % Baso % (Auto) 0.6 (0-2) % Neut # (Auto) 5900 (1237-4562) /uL Lymph # (Auto) 2200 (5626-2387) /uL [place] # (Auto) 700 (0-900) /uL Eos # (Auto) 200 (0-450) /uL Baso # (Auto) 0 (0-100) /uL RBC Morphology See below Polychromasia 1+ H Hypochromasia 1+ H Anisocytosis 2+ H Microcytosis 1+ H Macrocytosis 1+ H Target Cells 1+ H PT 13.6 H (10.1-12.7) SECONDS INR 1.2 (0.9-1.3) APTT 32 (26.4-36.2) SECONDS Sodium 140 (137-145) mmol/L Potassium 4.2 (3.4-5.1) mmol/L Chloride 111 H (98-107) mmol/L Carbon Dioxide 19 L (22-32) mmol/L BUN 29 H (7-17) mg/dL Creatinine 0.90 (0.52-1.04) mg/dL Estimated GFR > 60.0 (>60) mL/min BUN/Creatinine Ratio 32.2 H (6-22) Glucose 130 H (80-110) mg/dL Calcium 9.2 (8.4-10.2) mg/dL Total Bilirubin 0.2 (0.2-1.3) mg/dL AST 17 (14-36) IU/L ALT < 6 L (9-52) IU/L Alkaline Phosphatase 55 (38-126) U/L Total Protein 6.3 (6.3-8.2) g/dL Albumin 3.4 L (3.5-5.0) g/dL Globulin 2.9 (1.7-4.1) g/dL Albumin/Globulin Ratio 1.2 (1.0-2.8) Lipase 72 (23-300) U/L Urine Color Urine Appearance Urine pH (4.5-8.0) Ur Specific [place] (1.000-1.035) Urine Protein (Negative) Urine Glucose (UA) (Negative) g/dL Urine Ketones (NEGATIVE) Urine Occult Blood (Negative) Urine Nitrate (Negative) Urine Bilirubin (NEGATIVE) Urine Urobilinogen (0.2) E.U./dL Ur Leukocyte Esterase (NEGATIVE) Urine RBC (0-5/HPF) Urine WBC (0-5/HPF) Ur Squamous Epith Cells (0-5/HPF) Ur Renal Epithelial Cell (0-1/HPF) Amorphous Sediment Urine Bacteria (None) Urine Mucus (Negative) Ur Culture Indicated? 11/05/18 Range/Units 14:20 WBC (4.5-11.0) X10^3/uL RBC (4.0-5.2) X10^6/uL Hgb (12.0-16.0) g/dL Hct (36-46) % MCV (80-100) fL MCH (26-34) PG MCHC (30-36) % RDW (11.6-14.8) % Plt Count (150-400) X10^3/uL Neut % (Auto) (50-75) % Lymph % (Auto) (25-40) % [place] % (Auto) (3-14) % Eos % (Auto) (2-4) % Baso % (Auto) (0-2) % Neut # (Auto) (8072-2969) /uL Lymph # (Auto) (1414-5812) /uL [place] # (Auto) (0-900) /uL Eos # (Auto) (0-450) /uL Baso # (Auto) (0-100) /uL RBC Morphology Polychromasia Hypochromasia Anisocytosis Microcytosis Macrocytosis Target Cells PT (10.1-12.7) SECONDS INR (0.9-1.3) APTT (26.4-36.2) SECONDS Sodium (137-145) mmol/L Potassium (3.4-5.1) mmol/L Chloride (98-107) mmol/L Carbon Dioxide (22-32) mmol/L BUN (7-17) mg/dL Creatinine (0.52-1.04) mg/dL Estimated GFR (>60) mL/min BUN/Creatinine Ratio (6-22) Glucose (80-110) mg/dL Calcium (8.4-10.2) mg/dL Total Bilirubin (0.2-1.3) mg/dL AST (14-36) IU/L ALT (9-52) IU/L Alkaline Phosphatase (38-126) U/L Total Protein (6.3-8.2) g/dL Albumin (3.5-5.0) g/dL Globulin (1.7-4.1) g/dL Albumin/Globulin Ratio (1.0-2.8) Lipase (23-300) U/L Urine Color Yellow Urine Appearance Cloudy Urine pH 5.0 (4.5-8.0) Ur Specific [place] 1.025 (1.000-1.035) Urine Protein Trace H (Negative) Urine Glucose (UA) Negative (Negative) g/dL Urine Ketones Negative (NEGATIVE) Urine Occult Blood Negative (Negative) Urine Nitrate Negative (Negative) Urine Bilirubin Negative (NEGATIVE) Urine Urobilinogen 0.2 (0.2) E.U./dL Ur Leukocyte Esterase Trace H (NEGATIVE) Urine RBC 0-1/hpf (0-5/HPF) Urine WBC 5-10/hpf H (0-5/HPF) Ur Squamous Epith Cells 1-5 /hpf (0-5/HPF) Ur Renal Epithelial Cell 0-1/hpf (0-1/HPF) Amorphous Sediment 3+ Urine Bacteria Few (2-10) H (None) Urine Mucus 1+ H (Negative) Ur Culture Indicated? Specimen cultured Imaging Data Left tib-fib x-ray: Radiologist's impression: PROCEDURE: XR TIBIA FIBULA RT 2V INDICATIONS: fall TECHNIQUE: 2 views of the tibia and fibula were acquired. COMPARISON: [facility], , TIB/FIB 2V RIGHT, 09/11/2013, 10:14. FINDINGS: Bones: Bony step-off involves the fibular neck/head junction. Soft tissues: No suspicious soft tissue calcifications or masses. IMPRESSION: Mildly displaced fibular head/neck junction fracture. Dictated by: Yen Aly M.D. on 11/05/2018 at 10:24 Approved by: Yen Aly M.D. on 11/05/2018 at 10:27 right shoulder x-ray: Radiologist's impression: PROCEDURE: XR SHOULDER RT MIN 2V INDICATIONS: fall TECHNIQUE: 2 views of the shoulder were acquired. COMPARISON: None. FINDINGS: Bones: No fractures or dislocations. No suspicious bony lesions. Visualized ribs appear intact. Mild periarticular osteophyte formation at the acromioclavicular joint and glenohumeral joints. Soft tissues: No suspicious soft tissue calcifications. IMPRESSION: Osteoarthritis. No acute fracture. No osseous lesion. If symptoms and/or clinical suspicion for pathology persist, further assessment with repeat, or advanced imaging (e.g., CT, MRI, or bone scan) may be helpful for further assessment. Dictated by: Yen Aly M.D. on 11/05/2018 at 10:24 Approved by: Yen Aly M.D. on 11/05/2018 at 10:24 CT scan - head: Radiologist's impression: PROCEDURE: CT HEAD/BRAIN WO CON INDICATIONS: fall TECHNIQUE: Noncontrast 4.5 mm thick angled axial sections acquired from the foramen magnum to the vertex, with coronal and sagittal reformats. For radiation dose reduction, the following was used: automated exposure control, adjustment of mA and/or kV according to patient size. COMPARISON: [facility], CT, CT HEAD/BRAIN WO CON, 01/14/2018, 14:34. FINDINGS: Image quality: Excellent. CSF spaces: Basal cisterns are patent. No extra-axial fluid collections. The ventricles are symmetric in size and shape. Brain: No intracranial bleeds or masses. There is cerebral volume loss for age, with resultant ventricular and sulcal prominence. There are periventricular and deep white matter chronic small vessel ischemic changes. There is intracranial internal carotid artery atherosclerosis. Skull and face: Calvarium and visualized facial bones appear intact, without suspicious lesions. Sinuses: Visualized sinuses and mastoids are clear. IMPRESSION: 1. No CT evidence of acute intracranial pathology. No significant changes from previous study. 2. Mild to moderate atrophy and chronic microvascular ischemic changes. Dictated by: Jose F Soto M.D. on 11/05/2018 at 10:56 Approved by: Jose F Soto M.D. on 11/05/2018 at 10:57 CT C-spine: Radiologist's impression: [address] [id number] [address] Scan Report Signed Patient: Veronique Gould LMR#: [id number] : 7Acct:[id number] Age/Sex: 73 / FDate of Service: 11/05/18 Loc: ED Accession Number: [id number] Procedure: CT cervical spine wo con Ordering Provider: Raisa Kee MD PROCEDURE: CT CERVICAL SPINE WO CON INDICATIONS: fall/neck pain TECHNIQUE: Noncontrast 3 mm thick sections acquired from the skull base to the T4 level. Sagittal and coronal reformats were then constructed. For radiation dose reduction, the following was used: automated exposure control, adjustment of mA and/or kV according to patient size. COMPARISON: [facility], CT, CT HEAD/BRAIN WO CON, 11/05/2018, 10:18. FINDINGS: Image quality: Excellent. Bones: No fractures or dislocations. There is post surgical changes with discectomy and anterior fusion at C3-C4. There is mild degenerative disease at C4-C5, C5-C6 and C6-C7. Visualized superior ribs are intact. Mild bilateral facet arthropathy at C3-C4 and C4-C5. Soft tissues: Prevertebral soft tissues are normal in thickness. No paravertebral hematomas. No apical pneumothoraces. There is a small air collection within the left C2 transverse foramen. IMPRESSION: 1. No fracture in cervical spine. 2. Degenerative and post surgical changes in cervical spine. 3. A small air collection within the left C2 transverse foramen, uncertain clinical significance. Dictated by: Isis Billy M.D. on 11/05/2018 at 11:01 Approved by: Isis Billy M.D. on 11/05/2018 at 11:06 ECG Data Attestation: I personally reviewed and interpreted this ECG as follows: ( see below) Interpretation: 12 lead EKG performed November 05/2019, at 11:45 a.m., as follows: Regular ventricular rhythm with a rate of 75 beats per minute AK interval 134 milliseconds QRS duration 83 millisecond QTC interval [address] T wave changes no ectopy interpretation: Normal sinus rhythm; no signs of acute ischemia; normal EKG as interpreted by ED MD. Discharge Plan Departure Patient Disposition: Admitted as Observation Clinical Impression: Weakness generalized Closed left fibular fracture Qualifiers: Encounter type: initial encounter Fibula location: proximal Fracture morphology: unspecified fracture morphology Qualified Code(s): S82.832A - Other fracture of upper and lower end of left fibula, initial encounter for closed fracture Falls Qualifiers: Encounter type: initial encounter Qualified Code(s): W19.XXXA - Unspecified fall, initial encounter Discharge Date/Time: 11/05/18 13:35 Interventions: ED Discharge Assessment Last Done: 11/05/18 12:29 Admit Date/Time: 11/05/18 12:00 Admit Provider: Corby Zurita
--- NOTE | 2018-11-05 10:16 | DI.CT.S_ITS ---
PROCEDURE: CT HEAD/BRAIN WO CON INDICATIONS: fall TECHNIQUE: Noncontrast 4.5 mm thick angled axial sections acquired from the foramen magnum to the vertex, with coronal and sagittal reformats. For radiation dose reduction, the following was used: automated exposure control, adjustment of mA and/or kV according to patient size. COMPARISON: [facility], CT, CT HEAD/BRAIN WO CON, 01/14/2018, 14:34. FINDINGS: Image quality: Excellent. CSF spaces: Basal cisterns are patent. No extra-axial fluid collections. The ventricles are symmetric in size and shape. Brain: No intracranial bleeds or masses. There is cerebral volume loss for age, with resultant ventricular and sulcal prominence. There are periventricular and deep white matter chronic small vessel ischemic changes. There is intracranial internal carotid artery atherosclerosis. Skull and face: Calvarium and visualized facial bones appear intact, without suspicious lesions. Sinuses: Visualized sinuses and mastoids are clear. IMPRESSION: 1. No CT evidence of acute intracranial pathology. No significant changes from previous study. 2. Mild to moderate atrophy and chronic microvascular ischemic changes. Dictated by: Jose F Soto M.D. on 11/05/2018 at 10:56 Approved by: Jose F Soto M.D. on 11/05/2018 at 10:57
--- NOTE | 2018-11-05 10:16 | DI.CT.S_ITS ---
PROCEDURE: CT CERVICAL SPINE WO CON INDICATIONS: fall/neck pain TECHNIQUE: Noncontrast 3 mm thick sections acquired from the skull base to the T4 level. Sagittal and coronal reformats were then constructed. For radiation dose reduction, the following was used: automated exposure control, adjustment of mA and/or kV according to patient size. COMPARISON: [facility], CT, CT HEAD/BRAIN WO CON, 11/05/2018, 10:18. FINDINGS: Image quality: Excellent. Bones: No fractures or dislocations. There is post surgical changes with discectomy and anterior fusion at C3-C4. There is mild degenerative disease at C4-C5, C5-C6 and C6-C7. Visualized superior ribs are intact. Mild bilateral facet arthropathy at C3-C4 and C4-C5. Soft tissues: Prevertebral soft tissues are normal in thickness. No paravertebral hematomas. No apical pneumothoraces. There is a small air collection within the left C2 transverse foramen. IMPRESSION: 1. No fracture in cervical spine. 2. Degenerative and post surgical changes in cervical spine. 3. A small air collection within the left C2 transverse foramen, uncertain clinical significance. Dictated by: Isis Billy M.D. on 11/05/2018 at 11:01 Approved by: Isis Billy M.D. on 11/05/2018 at 11:06
[2018-11-05 11:01] LABS: Basophils Absolute Auto 0 /uL (0-100); Basophils Percent Auto 0.6 % (0-2); Eosinophils Absolute Auto 200 /uL (0-450); Eosinophils Percent Auto 2.2 % (2-4); Hematocrit 32.7 % (36-46); Hemoglobin 10.9 g/dL (12.0-16.0); Lymphocytes Absolute Auto 2200 /uL (1100-4500); Mean Corpuscular HGB Conc 33.5 % (30-36); Mean Corpuscular Hemoglobin 31.1 PG (26-34); Monocytes Absolute Auto 700 /uL (0-900); Monocytes Percent Auto 7.8 % (3-14); Neutrophils Absolute Auto 5900 /uL (1500-7000); Neutrophils Percent Auto 65.4 % (50-75); Platelet Count 310 X10^3/uL (150-400); Red Blood Cell Count 3.51 X10^6/uL (4.0-5.2); Red Cell Distribution Width 17.8 % (11.6-14.8)
[2018-11-05 11:05] LABS: INR 1.2 (0.9-1.3); Prothrombin Time 13.6 SECONDS (10.1-12.7)
[2018-11-05 11:08] LABS: PTT Partial Thromboplastin Tim 32 SECONDS (26.4-36.2)
[2018-11-05 11:11] LABS: Albumin 3.4 g/dL (3.5-5.0); Albumin Globulin Ratio 1.2 (1.0-2.8); Alkaline Phosphatase 55 U/L (38-126); Aspartate Aminotransferase 17 IU/L (14-36); BUN Creatinine Ratio 32.2 (6-22); Bilirubin Total 0.2 mg/dL (0.2-1.3); Blood Urea Nitrogen 29 mg/dL (7-17); Calcium 9.2 mg/dL (8.4-10.2); Carbon Dioxide 19 mmol/L (22-32); Chloride 111 mmol/L (98-107); Estimated Glomerular Filt Rate > 60.0 mL/min (>60); Globulin 2.9 g/dL (1.7-4.1); Glucose 130 mg/dL (80-110); HEMOLYSIS < 15 (0-50); Lipase 72 U/L (23-300); Potassium 4.2 mmol/L (3.4-5.1); Sodium 140 mmol/L (137-145); Total Protein 6.3 g/dL (6.3-8.2)
[2018-11-05 11:14] LABS: Alanine Aminotransferase < 6 IU/L (9-52)
[2018-11-05] MEDS: SODIUM CHLORIDE 0.9% 1,000 ML 150 ML IV (11:20)
[2018-11-05] MEDS: HYDROMORPHONE 1 MG INJ 0.5 MG IV ×3 (11:20→15:53)
[2018-11-05] MEDS: ONDANSETRON 4 MG/2 ML INJ IV (11:20)
[2018-11-05 11:27] VITALS: BP 110/72; PULSE 82; RESP 14; O2SAT 98
[2018-11-05 11:27] LABS: Add Manual Diff / Slide Review SLIDE REVIEW
[2018-11-05 11:36] VITALS: BP 114/63; PULSE 87; RESP 23; O2SAT 98
[2018-11-05 12:29] LABS: Anisocytosis 2+; Microcytosis 1+
[2018-11-05 12:30] LABS: Macrocytosis 1+
[2018-11-05 12:31] LABS: Hypochromasia 1+; Target Cells 1+
[2018-11-05 12:32] LABS: Polychromasia 1+
[2018-11-05 12:36] VITALS: BMI 24.2
[2018-11-05 13:10] VITALS: BP 107/62; PULSE 78; RESP 17; O2SAT 98
[2018-11-05] MEDS: HYDROCODONE/ACET 5/325 TABLET 2 TAB PO ×2 (14:33→20:03)
--- NOTE | 2018-11-05 14:40 | PC.ADMIT ---
[id number] The patient,Veronique Gould,73 y/o, was given written information regarding hospital policies, unit procedures and contact persons. Patient's smoking status: Never smoker. Vital Signs - 8 hr 11/05/18 09:46 11/05/18 11:27 11/05/18 11:36 Temperature 98.4 F Pulse Rate 92 H 82 87 Respiratory Rate 18 14 23 Blood Pressure 104/83 Blood Pressure [Left Arm] 110/72 114/63 Pulse Oximetry 98 98 98 11/05/18 13:10 Temperature Pulse Rate 78 Respiratory Rate 17 Blood Pressure Blood Pressure [Left Arm] 107/62 Pulse Oximetry 98 Rec'd pt to 226 from ED at 1340. Pt is AAO x4 and making needs known with clear logical speech. Educated to fall risk, precautions, use of call light. Yellow gown and socks placed. Bed alarm active. VSS. Pt denies shortness of breath, dizziness, lightheadedness. Denies n/v/d. Knee immobilizer applied in ED for mildly displaced fx. Admission assessment completed. to bring in medication list to clarify doses for medications. Dr. Zurita aware. Called to Dr. Zurita and clarified orders for weight bearing status and IVF orders (see orders) and TORB received.
[2018-11-05 14:46] LABS: Appearance Urine UA CLOUDY; Bilirubin Urine UA NEGATIVE (NEGATIVE); Color Urine UA YELLOW; Glucose Urine UA NEGATIVE (Negative); Ketones Urine UA NEGATIVE (NEGATIVE); Leukocyte Esterase Urine UA TRACE (NEGATIVE); Nitrite Urine UA NEGATIVE (Negative); Occult Blood Urine UA NEGATIVE (Negative); Protein Urine UA TRACE (Negative); Specific Gravity Urine UA 1.025 (1.000-1.035); Urobilinogen Urine UA 0.2 E.U./dL (0.2)
[2018-11-05 14:58] LABS: Amorphous Sediment Urine 3+; Bacteria Urine Few (2-10); Culture Indicated Urine Specimen Cultured; Mucus Urine 1+ (Negative); RBC Urine 0-1/HPF (0-5/HPF); Renal Epithelial Cells Urine 0-1/HPF (0-1/HPF); Squamous Epithelial Cell Urine 1-5 /HPF (0-5/HPF); WBC Urine 5-10/HPF (0-5/HPF)
--- NOTE | 2018-11-05 15:39 | PT.IIE ---
Surgical History (Last Reviewed 11/05/18 @ 17:03 by Corby Zurita MD) H/O hernia repair (Acute) S/P foot surgery, right (Acute) Gastric bypass status for obesity (Acute) Hx of resection of stomach (Resolved) Medical History (Last Reviewed 11/05/18 @ 17:03 by Corby Zurita MD) Hyperthyroidism (Chronic ~2004) Gastric ulcer (Chronic ~1991) History of irregular menstrual cycles (Chronic ~1989) Ovarian cyst (Chronic ~1999) Painful menstrual periods (Chronic ~1978) Anemia (Chronic ~2004) Chicken pox (Resolved) Measles (Resolved) Mumps (Resolved) Chronic back pain (Chronic ~2009) Foot pain (Chronic ~2010) Fractures (Chronic ~2011) Neuropathy (Chronic ~2008) Headache (Chronic ~1989) Migraines (Chronic ~1989) Restless leg syndrome (Chronic ~1989) Lupus (Chronic ~1999) Arthritis (Chronic) Physical Therapy Inpatient Evaluation/Re-Eval M1 PT/OT-IP Prior Functional Status Start: 11/05/18 17:46 Freq: NEEDED Status: Active Protocol: Document 11/05/18 15:39 AB (Rec: 11/05/18 18:02 [id number]) Medical Review Prior Functional Status Medical History Reviewed Yes Communication able to make needs known Mobility and Gait pt stated that she is modified independent with all mobilities and ambulation using 4WW Social History Household Members spouse children Living Arrangements House Number of Floors (Floors) One Floor Number of Stairs To Enter/Railing? 2 steps to enter with L rail ascending Home Environment Standard Height Toilet Walk in Shower Home Equipment Four Wheel Walker Shower Seat without Backrest Hand Held Shower Grab Bars In Shower Additional Social History Comment pt has a safety frame around the toilet M2 PT-IP Current Condition Start: 11/05/18 17:46 Freq: NEEDED Status: Active Protocol: Document 11/05/18 15:39 AB (Rec: 11/05/18 18:02 AB [id number]) Physical Therapy Current Condition Current Condition Evaluation Date 11/05/18 Treatment Diagnosis h/o falls; L fibular head/neck fx; difficulty in walking Onset Date 11/05/18 Precautions Brace L knee immobilizer Weight Bearing Status Weight Bearing Status Weight Bear as Tolerated Allowed Weight Bearing Amount (enter % WBAT per Dr. Zurita or #) (%) M3 PT-IP Subjective Start: 11/05/18 17:46 Freq: NEEDED Status: Active Protocol: Document 11/05/18 15:39 AB (Rec: 11/05/18 18:02 AB [id number]) Subjective Physical Therapy Visit Type Type Initial Evaluation Visit Start Time 15:39 Visit Stop Time 16:24 Total Visit Minutes 45 Number of [employer] Visits 0 Physical Therapy Visit Comments Patient Comments pt agreeable to do PT stated that she had a fall and that both legs just got weak and fell Therapy Pain Assessment Pain When Pain Assessed At Rest Pain Present Pain Present Pain Reported Location Left tib /fib Intensity 9 Scale Used Numeric (1 - 10) Pain Management Techniques Re-positioning Timing of Activity with Medications M4 PT-IP Mobility and Gait Start: 11/05/18 17:46 Freq: NEEDED Status: Active Protocol: Document 11/05/18 15:39 AB (Rec: 11/05/18 18:02 AB [id number]) PT-Bed Mobility Assessment Supine to Sit Supine to Sit Standby Assistance Sit to Supine Sit to Supine Standby Assistance Scooting Scooting to Edge of Bed Standby Assistance PT-Transfer Assessment Sit to and From Stand Sit to and from Stand Minimal Assistance Equipment Transfer Assistive Device Gait Belt Front Wheeled Walker Orthotic/Prosthetic Devices or Brace: Yes Transfers Transfer Destination Toilet Transfer Technique Stand Step Pivot Transfer Ability Level of Assist Minimal Assistance 1 Person Assistance Use of Upper Extremities Comments Mobility Comments completed adjusting L knee immobilizer. pt completed supine to sit SBA and sit to stand min A and cues. pt was able to stand using FWW for support min A. pt refused to ambulate much but agreed to take a few steps towards the HOB and completed ~ 3 steps min A and cues using FWW. pt sat back on the EOB and requested to use the bedside commode. pt completed stand step transfer using FWW min A to the bedside commode. pt was able to maintain standing min A while assisted with hygiene care and brief management. pt then completed step transfer using FWW back to bed min A and cues. pt wants to sit up on EOB for a few minutes. positioned pt and call light and table positioned next to pt. informed nurse and NAC that pt wants to sit up on EOB for a while. Gait Assessment Gait Gait Assistance Required: Minimum Assistance Distance (Feet) 2 Able to Maintain Weight Bearing Status Yes During Gait Assistive Devices Assistive Device Gait Belt Front Wheeled Walker Orthotic/Prosthetic Devices or Brace: Yes Gait Deviations General Gait Pattern Antalgic Decreased Stride Length Decreased Feet Clearance Factors Limiting Gait Function Factors Limiting Gait Function Decreased Activity Tolerance Decreased Strength Limited Range of Motion Pain Poor Balance Poor Safety Awareness PT-Balance Assessment Sitting Balance and Reactions Static Sitting Balance Ability Good Dynamic Sitting Balance Ability Good Standing Balance and Reactions Static Standing Balance Ability Fair Dynamic Standing Balance Ability Fair Device Used FWW M5 PT-IP Objective Assessments Start: 11/05/18 17:46 Freq: NEEDED Status: Active Protocol: Document 11/05/18 15:39 AB (Rec: 11/05/18 18:02 AB [id number]) Orientation Orientation/Cognition Level of Alertness Alert Orientation Name Place Situation Language Function Ability No Deficits Noted Gross Range of Motion Lower Extremity ROM Assessment Left Impaired Impairments L knee immobilizer on Strength Lower Extremity Strength Assessment Bilaterally Impaired Comments Strength Comments RLE 4-/5 LLE 3+/5 Coordination Assessment Gross Coordination Gross Coordination WNL Sensation Assessment Sensation Gross Sensation Right LE Impaired Left LE Impaired Light Touch Impaired Proprioception (Position) Impaired Comments Sensation Comments pt has neuropathy on BLE Muscle Tone Muscle Tone WNL Yes M6 PT-IP Treatment Start: 11/05/18 17:46 Freq: NEEDED Status: Active Protocol: Document 11/05/18 15:39 AB (Rec: 11/05/18 18:02 AB [id number]) Physical Therapy Treatment Education Education Provided Precautions Weight Bearing Status Safety M7 PT-IP Assessment and Plan Start: 11/05/18 17:46 Freq: NEEDED Status: Active Protocol: Document 11/05/18 15:39 AB (Rec: 11/05/18 18:02 AB [id number]) PT Summary Assessment and Plan Potential Rehabilitation Potential Good Status of Condition at Evaluation Stable Summary Impairments Pain ROM Strength Balance Coordination Sensation Tone Cognition Bed Mobility Transfers Gait Activity Tolerance Assessment Summary pt requiring min A and cues but unable to tolerate much activity due to c/o pain and weakness. d/c plan depending on progress but pt stated that her spouse will be able to assist her at home. will continue to assess. Goals Bed Mobility Goal Independent Transfer Goal Standby Assistance Front Wheeled Walker Four Wheeled Walker Gait Goal Standby Assistance Front Wheel Walker Four Wheel Walker Gait Distance 150 Other Goals up/down 2 steps with L rail ascending CGA Days to Meet Goals 5 Frequency of Treatment Frequency Of Treatment Once a Day Treatment Plan Physical Therapy Treatment Plan Bed Mobility Training Transfer Training Gait Training Therapeutic Exercise Balance Retraining Discharge Planning Hot or Cold Pack Neuromuscular Re-ed Coordination Retraining Other Recommendations and Next Treatment ambulation, caregiver training Focus , stair training Recommendations To Nursing Amount of Assist Needed 1 Person Assist Discharge Recommendations PT Discharge Recommendations Home with 24/7 Assist Outpatient PT Equipment Needed for Home Before FWW if not safe with 4WW Discharge
[2018-11-05] MEDS: SODIUM CHLORIDE 0.9% 1,000 ML 125 ML IV ×2 (15:53→19:36)
[2018-11-05 15:56] VITALS: BP 115/66; PULSE 71; RESP 16; TEMP 36.8; O2SAT 100
--- NOTE | 2018-11-05 17:03 | P.HP_ITS ---
History of Present Illness Date Patient Seen: 11/05/18 Time Patient Seen: 12:55 Chief complaint: multiple falls Narrative: Weakness. Patient is admitted through the ER because of weakness. Patient has been seen in the emergency room multiple times for weakness and general malaise over the past several weeks. Recently she has noticed increasing weakness. Apparently last night she had v barb difficult time moving difficult time walking. Resulting in falling she fell couple times she ended up wrenching her neck and injuring her knee resulting in a fracture of the proximal fever today. Patient is admitted because unable to be unable to ambulate generalized weakness frequent falling. Patient's primary caregiver is her . Patient has had a relatively unremarkable last several months. Approximately 45 lb weight loss a need intentional. Severe abdominal pain for no obvious etiology patient has been evaluated here as well as Gastroenterology at her [facility] with endoscopy colonoscopy CT HIDA scans all of which have been unremarkable. Recently admitted here for a questionable GI bleed endoscopy was negative at that time. She continues to have problems with weight loss poor appetite nausea unable to get adequate calories in and this has been ongoing problem for several months with no insight. Home care has been initially through [facility] as well as . [facility] dismiss patient from their services because of noncompliance. Patient has a history of non-insulin diabetes had been on medications has been discontinued does all the weight loss her blood sugars have remained normal. Patient is chronic back pain for which she is on hydrocodone 08/3251 tablets every 6 hours this been ongoing issue and there has been times where perhaps she has requested a bigger dose. She has chronic back pain for which she has seen Dr. Wong for injections and this is pending. Apparently had some help from this in the past. Patient has admitted in the past she has having problems with depression and at times actually was severely depressed per her discussion. Has been on antidepressants in the past unclear whether not this made a difference. Patient has been evaluated in the home by social media intern by dietary recommendations and by home health etc. None of this seemed to have had much effect on her status. Patient was here on hospital for urinary tract infection and then transferred to jail/assisted living and did well there gained weight good appetite decreased pain participate in therapy actually survived and and thrived there and got to the point where she felt so good she she simply signed herself out. Only to return home and began to deteriorate and this has been a pattern. She does well in the hospital does not do so well when she goes home unclear exactly the dynamics as stool how or why this occurred. Patient has been [facility]ry. Has appointment next month with psychiatrist. Patient also has a history of apparent iron deficiency anemia. Is seeing Dr. Clinton her oncologist for her anemia currently being evaluated. The patient has a history of orthostatic hypotension has been placed on midodrine per the consultants it [facility]. Patient with history of restless legs taking Sinemet and Mirapex for same. History of peripheral neuropathy taking gabapentin for same Patient History Medical History Hyperthyroidism (Chronic ~2004) Gastric ulcer (Chronic ~1991) History of irregular menstrual cycles (Chronic ~1989) Ovarian cyst (Chronic ~1999) Painful menstrual periods (Chronic ~1978) Anemia (Chronic ~2004) Chicken pox (Resolved) Measles (Resolved) Mumps (Resolved) Chronic back pain (Chronic ~2009) Foot pain (Chronic ~2010) Fractures (Chronic ~2011) Neuropathy (Chronic ~2008) Headache (Chronic ~1989) Migraines (Chronic ~1989) Restless leg syndrome (Chronic ~1989) Lupus (Chronic ~1999) Arthritis (Chronic) Surgical History H/O hernia repair (Acute) S/P foot surgery, right (Acute) Gastric bypass status for obesity (Acute) Hx of resection of stomach (Resolved) Family History Grandfather No problems noted. Grandmother No problems noted. Mother No problems noted. Son Diabetes mellitus Social History marital status: household members: spouse and children Smoking Status: Never smoker alcohol intake: never substance use type: does not use Family & Social History Family History Grandfather No problems noted. Grandmother No problems noted. Mother No problems noted. Son Diabetes mellitus Social History: household members spouse,children Prior Living Arrangements House Safety & Behavioral: Feels Safe in Current Yes Environment Been Physically Hurt or No Threatened By a Person Suicidal Ideation Description None Suicide Plan Description No Plan Tobacco & Substance use: Smoking Status Never smoker alcohol intake never alcohol intake frequency 0-2 drinks per day Substance Use Type does not use Meds Home Medications Medication Instructions Recorded Confirmed Type Diabetic Shoes 1 pkg MISCELLANEOUS DIRECTED 01/14/18 11/05/18 History Walker: Four Wheel 1 u MISCELLANEOUS DIRECTED 01/14/18 11/05/18 History bupropion HCl 150 mg PO BID 03/05/18 10/09/18 History levothyroxine 175 mcg tablet 175 mcg PO DAILY #90 tab 07/22/18 11/05/18 Rx ferrous sulfate [FeroSul] 1 tab PO BID 08/04/18 10/09/18 History blood-glucose meter kit #1 each 08/27/18 11/05/18 Rx aspirin 81 mg PO DAILY 08/28/18 11/05/18 History lovastatin 5 mg PO Q OTHER DAY 08/28/18 10/09/18 History potassium chloride [Klor-Con M10] 10 meq PO DAILYCC #30 tab 09/01/18 11/05/18 Rx [id number] See Rx Instructions .ROUTE 09/27/18 11/05/18 Rx 50 mg-325 mg-40 mg tablet .COMPLEX PRN #60 tab citalopram 20 mg tablet 40 mg PO DAILY #60 tab 09/27/18 11/05/18 Rx carbidopa 25 mg-levodopa 100 mg 1 tab PO TID #90 tab 10/02/18 11/05/18 Rx tablet ondansetron 4 mg PO Q6H PRN #30 tab 10/20/18 11/05/18 Rx blood sugar diagnostic strips #100 each 10/22/18 11/05/18 Rx gabapentin 600 mg tablet 600 - 1,200 mg PO TID #90 tab 10/22/18 11/05/18 Rx lancets #100 each 10/22/18 11/05/18 Rx hydrocodone-acetaminophen 1 - 2 tab PO QID PRN 11/05/18 11/05/18 History midodrine 10 mg PO TID 11/05/18 11/05/18 History temazepam 15 mg capsule 15 mg PO BEDTIME PRN #20 cap 11/05/18 11/05/18 Rx Allergies Allergy/AdvReac Type Severity Reaction Status Date / Time amoxicillin [From AUGMENTIN] Allergy Mild RASH Verified 10/30/18 11:56 clavulanic acid Allergy Mild RASH Verified 10/30/18 11:56 [From AUGMENTIN] metformin [METFORMIN] AdvReac Severe SWELLING Verified 10/30/18 11:56 Review of Systems Constitutional Constitutional: Reports anorexia, Reports body ache(s), Reports fatigue, Reports frequent falls, Reports headache(s), Reports lack of energy, Reports malaise, Reports poor appetite and Reports weakness Eyes Eyes: Reports system reviewed; no additional complaints, except as documented ENT Ears, Nose, Mouth, and Throat: Yes system reviewed; no additional complaints, except as documented, Yes headache(s) and Yes neck pain Cardiovascular Cardiovascular: Reports leg pain with activity and Reports lightheadedness Respiratory Respiratory: Reports system reviewed and no additional complaints, except as documented Gastrointestinal Gastrointestinal: Reports abdominal pain, Reports belching, Reports change in bowel habits, Reports early satiety, Reports nausea and Reports vomiting Genitourinary Genitourinary: Reports system reviewed and no additional complaints, except as documented Musculoskeletal Musculoskeletal: Reports abnormal gait, Reports back pain, Reports myalgias, Reports arthralgias, Reports limited range of motion, Reports muscle weakness, Reports neck pain and Reports stiffness Integumentary/Breasts Skin/Breast: Reports system reviewed and no additional complaints, except as documented Neurologic Neurologic: Reports abnormal gait, Reports frequent falls, Reports headache(s), Reports memory loss, Reports restless legs and Reports weakness Psychiatric Psychiatric: Reports abnormal sleep pattern, Reports change in appetite, Reports depression and Reports memory loss Endocrine Endocrine: Reports system reviewed and no additional complaints, except as documented and Reports fatigue Hematologic/Lymphatic Hematologic/Lymphatic: Reports system reviewed and no additional complaints, except as documented Allergic/Immunologic Allergic/Immunologic: Reports system reviewed and no additional complaints, except as documented Exam Vital Signs (past 8 hours): - 11/05/18 09:46 11/05/18 11:27 11/05/18 11:36 Temperature 98.4 F Pulse Rate 92 H 82 87 Respiratory Rate 18 14 23 Blood Pressure 104/83 Blood Pressure [Left Arm] 110/72 114/63 Pulse Oximetry 98 98 98 11/05/18 13:10 11/05/18 15:56 Temperature 98.3 F Pulse Rate 78 71 Respiratory Rate 17 16 Blood Pressure 115/66 Blood Pressure [Left Arm] 107/62 Pulse Oximetry 98 100 Oxygen Delivery Method Room Air Narrative Exam Narrative: Gen.: Skin: Warm well perfused. No prominent lesions. Nonicteric. HEENT: PERRL., normal EOM, external ears canals TMs normal, nasal mucosa normal and midline septum, oropharynx without lesions. Neck: Trachea midline. Thyroid nontender and not enlarged. Carotids without bruits. No lymphadenopathy Back: No obvious deformity or tenderness. Chest: Clear to P&A. Symmetric. CV: RRR no murmur or gallop. No JVD. Abdomen: No masses bruits tenderness or visceromegaly. Neuro: Cranial nerves II through XII grossly intact. Sensory and motor exams intact. Gait normal. Mental status: Intact for screening Extremities: No cyanosis clubbing or edema Musculoskeletal: No gross deformities Lymphatics: Negative for lymphadenopathy, supraclavicular axillary or inguinal well as her on left fibula a head not examined. Patient appears alert and oriented x3 looks somewhat pale as she usually does Objective Labs Result Diagrams: 11/05/18 10:50 11/05/18 10:50 Labs: Laboratory Results - last 24 hr 11/05/18 11/05/18 11/05/18 10:50 10:50 10:50 WBC 9.0 RBC 3.51 L Hgb 10.9 L Hct 32.7 L MCV 93.0 MCH 31.1 MCHC 33.5 RDW 17.8 H Plt Count 310 Neut % (Auto) 65.4 Lymph % (Auto) 24.0 L [place] % (Auto) 7.8 Eos % (Auto) 2.2 Baso % (Auto) 0.6 Neut # (Auto) 5900 Lymph # (Auto) 2200 [place] # (Auto) 700 Eos # (Auto) 200 Baso # (Auto) 0 RBC Morphology See below Polychromasia 1+ H Hypochromasia 1+ H Anisocytosis 2+ H Microcytosis 1+ H Macrocytosis 1+ H Target Cells 1+ H PT 13.6 H INR 1.2 APTT 32 Sodium 140 Potassium 4.2 Chloride 111 H Carbon Dioxide 19 L BUN 29 H Creatinine 0.90 Estimated GFR > 60.0 BUN/Creatinine Ratio 32.2 H Glucose 130 H Calcium 9.2 Total Bilirubin 0.2 AST 17 ALT < 6 L Alkaline Phosphatase 55 Total Protein 6.3 Albumin 3.4 L Globulin 2.9 Albumin/Globulin Ratio 1.2 Lipase 72 Urine Color Urine Appearance Urine pH Ur Specific [place] Urine Protein Urine Glucose (UA) Urine Ketones Urine Occult Blood Urine Nitrate Urine Bilirubin Urine Urobilinogen Ur Leukocyte Esterase Urine RBC Urine WBC Ur Squamous Epith Cells Ur Renal Epithelial Cell Amorphous Sediment Urine Bacteria Urine Mucus Ur Culture Indicated? 11/05/18 14:20 WBC RBC Hgb Hct MCV MCH MCHC RDW Plt Count Neut % (Auto) Lymph % (Auto) [place] % (Auto) Eos % (Auto) Baso % (Auto) Neut # (Auto) Lymph # (Auto) [place] # (Auto) Eos # (Auto) Baso # (Auto) RBC Morphology Polychromasia Hypochromasia Anisocytosis Microcytosis Macrocytosis Target Cells PT INR APTT Sodium Potassium Chloride Carbon Dioxide BUN Creatinine Estimated GFR BUN/Creatinine Ratio Glucose Calcium Total Bilirubin AST ALT Alkaline Phosphatase Total Protein Albumin Globulin Albumin/Globulin Ratio Lipase Urine Color Yellow Urine Appearance Cloudy Urine pH 5.0 Ur Specific [place] 1.025 Urine Protein Trace H Urine Glucose (UA) Negative Urine Ketones Negative Urine Occult Blood Negative Urine Nitrate Negative Urine Bilirubin Negative Urine Urobilinogen 0.2 Ur Leukocyte Esterase Trace H Urine RBC 0-1/hpf Urine WBC 5-10/hpf H Ur Squamous Epith Cells 1-5 /hpf Ur Renal Epithelial Cell 0-1/hpf Amorphous Sediment 3+ Urine Bacteria Few (2-10) H Urine Mucus 1+ H Ur Culture Indicated? Specimen cultured Assessment & Plan Assessment & Plan narrative: 1. Chronic issues generalized weakness, nausea, weight loss, decreased appetite. 2. Chronic back pain. 3. Most recent generalized weakness especially lower extremity. 4. History of diabetes on no medications due to weight loss. 5. Depression is a big part of all this unclear exactly how much of is playing but it is a part of this sees Psychiatry next month hopefully will see patient here in the office 7. She has history of anemia is being followed by oncology will see her in the hospital. Numbers 8 discharge planning is main challenge here patient to benefit from some sort of assisted living/jail as manifested in the past. Due to social issues apparently that she has encountered assist his home seems to be limited. Patient had wanted to talk about a feeding tube in the past but both she and her feel that with that is unnecessary at this time yet to be determined. 9. Abnormal urine consistent with urinary tract infection culture place. 10. Fracture of the proximal fibula will have Orthopedics evaluate suspect conservative treatment as planned Quality VTE Deep Vein Thrombosis/Pulmonary Embolism Present on Admission: No
--- NOTE | 2018-11-05 18:43 | P.CONS_ITS ---
History of Present Illness Date Patient Seen: 11/05/18 Time Patient Seen: 13:20 Chief complaint: multiple falls Reason for consult: R/O psychiatric cause for loss of appetite and weight loss Narrative: REFERRAL INFORMATION: This is the [first] psychiatric evaluation for this 73-year-old female referred by Dr. Zurita for evaluation of loss of appetite, weight loss, and failure to thrive. The patient?s pentecostal-spiritual preference, the voluntary nature of the evaluation, and the limits of confidentiality were discussed. RECORDS REVIEW: The patient's medical records and hospital course were reviewed as part of this evaluation. CHIEF COMPLAINT: ?I have had no appetite and I have never weighed this little.? HISTORY OF PRESENT ILLNESS: As noted above this is the 1st ever psychiatric evaluation for this 73-year-old woman who has about a 3 months history of loss of appetite, weight loss, and failure to thrive. She is followed by Dr. Zurita in the primary care clinic and has been thoroughly worked up with a variety of tests to address possible med ical causes of her symptoms. All tests have been negative for gastrointestinal issues, cancer, or any other possible diagnosis on the differential. The patient has been hospitalized on 2 other occasions for this complaint and both times with hospitalization and rehab facility admissions she has gained weight and started to thrive. Unfortunately as soon as she returns home, she reverts to previous behaviors loses her appetite, does not eat, loses weight, and eventually becomes weak and susceptible to falls and can only stay in bed with no energy to do anything. Today, the patient presented to the emergency department after being unable to support her weight on her legs that was so weak causing her to fall. Her brought her in for further evaluation and treatment and Dr. Zurita d ecided to admit her. I spoke with the patient in her hospital room on the [place] with her pre sent at all with the patient's permission. The patient was pleasant, friendly, and interacted appropriately. She denies any depressed mood or anhedonia, but she did acknowledge loss of appetite, hailey ght change of over 60 lb, initial, middle, and terminal insomnia, psychomotor retardation, fatigue and loss of energy, feelings of worthlessness and guilt, as well as cognitive and memory problems. She specifically denied poor concentration or recurrent thoughts of or suicidal ideation. The patient reports that she is an avid reader and is able to focus and concentrate on reading her books as is her usual habit. The patient denies symptoms of anxiety, psychosis, camila, or PTSD. She did not appear to be fearful or apprehensive with her present and they interacted in a very appropriate and familiar manner. Location, quality, severity, Duration, timing, Context, modifying factors, associated signs/symptoms Depression: depressed mood, anhedonia, weight change, insomnia, psychomotor agitation, fatigue and loss of energy, feeling worthless and guilty, poor concentration, recurrent thoughts of or suicidal ideation. Anxiety: panic attacks, with sweating, trembling, shortness of breath, and feeling nauseous. Feeling fearful or anxious when going out into public. Psychosis: Auditory and visual hallucinations, delusions, ideas of reference, thought blocking, thought insertion, disorganized behavior, Negative symptoms. This refers to reduced or lack of ability to function normally. For example, the person may neglect personal hygiene or appear to lack emotion (doesn't make eye contact, doesn't change facial expressions or speaks in a monotone). Also, the person may have lose interest in everyday activities, socially withdraw or lack the ability to experience pleasure. Camila: Racing thoughts, Grandiosity, elevated, elated or euphoric mood, irritability, inappropriate social behavior, hypersexuality, rapid speech, increased energy, Poor judgment, decreased need for sleep due to high energy PTSD: Exposure to trauma; Intrusive symptoms: memories, dreams, flashbacks, psych & physio distress at reminders; Avoidance: cues, memories, thoughts; Mood alteration: amnesia, neg beliefs, distorted cognition, guilt, anger, shame, diminished interest-participation, detachment, inability to feel positive emotion; Arousal: irritability, reckless, self-destructive, hypervigilance, startle, concentration, sleep disturbance ? PAST PSYCHIATRIC HISTORY: - Diagnoses: The patient has no prior psychiatric history. - Inpatient: [None.] - Outpatient: [None.] - Suicide Attempts: [None.] - Medication Trials: [None.] FAMILY HISTORY: [No family history of psychiatric illness.] SUBSTANCE USE HISTORY: - Tobacco: [The patient does not smoke.] - Alcohol: The patient rarely drinks. - Drugs: [The patient does not use drugs.] DEVELOPMENTAL AND SOCIAL HISTORY: - Family Constellation: The patient was born in [place] but raised mostly in [place] the 2nd of 4 children from an intact family when she was growing up. Her father was in the [employer] and through part of her childhood they traveled overseas. 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 She expressed satisfaction with her career and felt as if it was her calling. - Relationships: The patient has been for 53 years to her . They have 3 children who are all grown but 1 of home still lives with them. - Current Living: The patient lives with her in 50-year-old son and [place]. - Support: Her and her 's [employer] income - Legal: None PCP: Dr. Zurita SIGNIFICANT MEDICAL HISTORY: - Allergies: Ampicillin and metformin - Medical Problems: Type 2 diabetes, headaches, low back pain, - Current Medications: Refer to chart - Herbals/Supplements: [None.] PERTINENT REVIEW OF SYSTEMS: Per HPI CURRENT PSYCHOTROPIC MEDICATIONS: Bupropion 150 mg b.i.d. Citalopram 40 mg q.day ? MENTAL STATUS EXAM: - Appearance: Slender, somewhat malnourished female seen lying in [facility] in her hospital bed, appears somewhat pale - Grooming: Neatly groomed, dressed in [facility], - Behavior: [Calm, cooperative, good eye contact, no psychomotor agitation or slowing, no tremor or involuntary movements observed] - Gait: Unable to stand due to weakness - Speech: [Normal rate, volume, and rené] - Mood: ?Okay? - Affect: [Congruent with content, normal range and reactivity] - Thought Process: [Linear, logical, and goal-directed] - Thought Content: [Denies suicidal ideation, denies homicidal ideation, intent or plan; and there was no evidence of a formal thought or perceptual disturbance.] - Attention: [Attentive to interview] - Orientation: [Oriented to person, place, time, and circumstance] - Memory: [Intact for interview, not formally tested] - Insight: [Fair] - Judgment: [Fair] DATA: - Labs: None to review at this time Rating Scales: - PHQ9: None at this time - GAD7: None at this time ASSESSMENT: This is a 73-year-old woman who presents with loss of appetite, severe weight loss, weakness, and some symptoms of depression. Thus far, medical workup has been negative for any cause of her loss of appetite and admissions to the hospital or rehab facilities have resulted in improved appetite, increase in weight, and return to normal functioning. Although the patient denies depressed mood, anhedonia, or thoughts of , she does complain of some symptoms of depression. I am concerned that she may be presenting in a somewhat more stoic fashion especially since she was interviewed with the presence of her . We will continue to follow up with her with the working diagnosis of ruling out depression in continue to explore other psychiatric possibilities for her loss of appetite and weight loss. DIAGNOSES: Rule out major depression RECOMMENDATIONS: Diagnostics: Imaging: None recommended at this time Labs: None further recommended at this time in addition to admission labs Psych testing: None at this time Medications: -continue bupropion 150 mg p.o. b.i.d. -continue citalopram 40 mg p.o. q.day Psychotherapy/Support: Will continue to follow up with you to develop further history and psychiatric assessment [facility] Medical History Hyperthyroidism (Chronic ~2004) Gastric ulcer (Chronic ~1991) History of irregular menstrual cycles (Chronic ~1989) Ovarian cyst (Chronic ~1999) Painful menstrual periods (Chronic ~1978) Anemia (Chronic ~2004) Chicken pox (Resolved) Measles (Resolved) Mumps (Resolved) Chronic back pain (Chronic ~2009) Foot pain (Chronic ~2010) Fractures (Chronic ~2011) Neuropathy (Chronic ~2008) Headache (Chronic ~1989) Migraines (Chronic ~1989) Restless leg syndrome (Chronic ~1989) Lupus (Chronic ~1999) Arthritis (Chronic) Surgical History H/O hernia repair (Acute) S/P foot surgery, right (Acute) Gastric bypass status for obesity (Acute) Hx of resection of stomach (Resolved) Family History Grandfather No problems noted. Grandmother No problems noted. Mother No problems noted. Son Diabetes mellitus Social History marital status: household members: spouse and children Smoking Status: Never smoker alcohol intake: never substance use type: does not use Family History Grandfather No problems noted. Grandmother No problems noted. Mother No problems noted. Son Diabetes mellitus Social History marital status: household members: spouse and children Smoking Status: Never smoker alcohol intake: never substance use type: does not use Meds Home Medications Medication Instructions Recorded Confirmed Type Diabetic Shoes 1 pkg MISCELLANEOUS DIRECTED 01/14/18 11/05/18 History Walker: Four Wheel 1 u MISCELLANEOUS DIRECTED 01/14/18 11/05/18 History bupropion HCl 150 mg PO BID 03/05/18 11/05/18 History levothyroxine 175 mcg tablet 175 mcg PO DAILY #90 tab 07/22/18 11/05/18 Rx ferrous sulfate [FeroSul] 1 tab PO BID 08/04/18 11/05/18 History blood-glucose meter kit #1 each 08/27/18 11/05/18 Rx aspirin 81 mg PO DAILY 08/28/18 11/05/18 History lovastatin 5 mg PO Q OTHER DAY 08/28/18 11/05/18 History potassium chloride [Klor-Con M10] 10 meq PO DAILYCC #30 tab 09/01/18 11/05/18 Rx [id number] See Rx Instructions .ROUTE 09/27/18 11/05/18 Rx 50 mg-325 mg-40 mg tablet .COMPLEX PRN #60 tab citalopram 20 mg tablet 40 mg PO DAILY #60 tab 09/27/18 11/05/18 Rx carbidopa 25 mg-levodopa 100 mg 1 tab PO TID #90 tab 10/02/18 11/05/18 Rx tablet ondansetron 4 mg PO Q6H PRN #30 tab 10/20/18 11/05/18 Rx blood sugar diagnostic strips #100 each 10/22/18 11/05/18 Rx gabapentin 600 mg tablet 600 - 1,200 mg PO TID #90 tab 10/22/18 11/05/18 Rx lancets #100 each 10/22/18 11/05/18 Rx hydrocodone-acetaminophen 1 - 2 tab PO QID PRN 11/05/18 11/05/18 History midodrine 10 mg PO TID 11/05/18 11/05/18 History temazepam 15 mg capsule 15 mg PO BEDTIME PRN #20 cap 11/05/18 11/05/18 Rx Allergies Allergy/AdvReac Type Severity Reaction Status Date / Time amoxicillin [From AUGMENTIN] Allergy Mild RASH Verified 10/30/18 11:56 clavulanic acid Allergy Mild RASH Verified 10/30/18 11:56 [From AUGMENTIN] metformin [METFORMIN] AdvReac Severe SWELLING Verified 10/30/18 11:56 Exam Vital Signs (past 8 hours): - 11/05/18 11:27 11/05/18 11:36 11/05/18 13:10 Temperature Pulse Rate 82 87 78 Respiratory Rate 14 23 17 Blood Pressure Blood Pressure [Left Arm] 110/72 114/63 107/62 Pulse Oximetry 98 98 98 11/05/18 15:56 Temperature 98.3 F Pulse Rate 71 Respiratory Rate 16 Blood Pressure 115/66 Blood Pressure [Left Arm] Pulse Oximetry 100 Oxygen Delivery Method Room Air Objective Labs Result Diagrams: 11/05/18 10:50 11/05/18 10:50 Labs: Laboratory Results - last 24 hr 11/05/18 11/05/18 11/05/18 10:50 10:50 10:50 WBC 9.0 RBC 3.51 L Hgb 10.9 L Hct 32.7 L MCV 93.0 MCH 31.1 MCHC 33.5 RDW 17.8 H Plt Count 310 Neut % (Auto) 65.4 Lymph % (Auto) 24.0 L [place] % (Auto) 7.8 Eos % (Auto) 2.2 Baso % (Auto) 0.6 Neut # (Auto) 5900 Lymph # (Auto) 2200 [place] # (Auto) 700 Eos # (Auto) 200 Baso # (Auto) 0 RBC Morphology See below Polychromasia 1+ H Hypochromasia 1+ H Anisocytosis 2+ H Microcytosis 1+ H Macrocytosis 1+ H Target Cells 1+ H PT 13.6 H INR 1.2 APTT 32 Sodium 140 Potassium 4.2 Chloride 111 H Carbon Dioxide 19 L BUN 29 H Creatinine 0.90 Estimated GFR > 60.0 BUN/Creatinine Ratio 32.2 H Glucose 130 H Calcium 9.2 Total Bilirubin 0.2 AST 17 ALT < 6 L Alkaline Phosphatase 55 Total Protein 6.3 Albumin 3.4 L Globulin 2.9 Albumin/Globulin Ratio 1.2 Lipase 72 Urine Color Urine Appearance Urine pH Ur Specific [place] Urine Protein Urine Glucose (UA) Urine Ketones Urine Occult Blood Urine Nitrate Urine Bilirubin Urine Urobilinogen Ur Leukocyte Esterase Urine RBC Urine WBC Ur Squamous Epith Cells Ur Renal Epithelial Cell Amorphous Sediment Urine Bacteria Urine Mucus Ur Culture Indicated? 11/05/18 14:20 WBC RBC Hgb Hct MCV MCH MCHC RDW Plt Count Neut % (Auto) Lymph % (Auto) [place] % (Auto) Eos % (Auto) Baso % (Auto) Neut # (Auto) Lymph # (Auto) [place] # (Auto) Eos # (Auto) Baso # (Auto) RBC Morphology Polychromasia Hypochromasia Anisocytosis Microcytosis Macrocytosis Target Cells PT INR APTT Sodium Potassium Chloride Carbon Dioxide BUN Creatinine Estimated GFR BUN/Creatinine Ratio Glucose Calcium Total Bilirubin AST ALT Alkaline Phosphatase Total Protein Albumin Globulin Albumin/Globulin Ratio Lipase Urine Color Yellow Urine Appearance Cloudy Urine pH 5.0 Ur Specific [place] 1.025 Urine Protein Trace H Urine Glucose (UA) Negative Urine Ketones Negative Urine Occult Blood Negative Urine Nitrate Negative Urine Bilirubin Negative Urine Urobilinogen 0.2 Ur Leukocyte Esterase Trace H Urine RBC 0-1/hpf Urine WBC 5-10/hpf H Ur Squamous Epith Cells 1-5 /hpf Ur Renal Epithelial Cell 0-1/hpf Amorphous Sediment 3+ Urine Bacteria Few (2-10) H Urine Mucus 1+ H Ur Culture Indicated? Specimen cultured Assessment & Plan (1) Decrease in appetite: Current visit: No Status: Acute (2) Weakness generalized: Current visit: Yes Status: Acute (3) Depression: Current visit: Yes Status: Acute Assessment & Plan narrative: DIAGNOSES: Rule out major depression RECOMMENDATIONS: Diagnostics: Imaging: None recommended at this time Labs: None further recommended at this time in addition to admission labs Psych testing: None at this time Medications: -continue bupropion 150 mg p.o. b.i.d. -continue citalopram 40 mg p.o. q.day Psychotherapy/Support: Will continue to follow up with you to develop further history and psychiatric assessment Time Spent With Patient Time with patient: 25 - 35 minutes
[2018-11-05 19:54] VITALS: BP 115/63; PULSE 75; RESP 18; TEMP 37.3; O2SAT 100
--- NOTE | 2018-11-05 20:32 | PC.NURSE ---
Hanna shift note: Notified Dr. Zurita regarding patients request for different pain control. No new orders obtained. Will continue with [place] 2 tabs Q6 hrs PRN as ordered and other pain control modalities.
[2018-11-05] MEDS: GABAPENTIN 600 MG TABLET PO (21:49)
[2018-11-05] MEDS: MIDODRINE HCL 5 MG TABLET 10 MG PO (21:49)
[2018-11-05] MEDS: CARBIDOPA-LEVODOPA 25/100 TABLET 1 EACH PO (21:49)
[2018-11-05] MEDS: TEMAZEPAM 15 MG CAPSULE 30 MG PO (21:49)
[2018-11-05] MEDS: buPROPion SR 150 MG TAB PO (21:49)
[2018-11-05] MEDS: FERROUS SULFATE 325 MG TABLET PO (21:49)
[2018-11-05] MEDS: BUTALB/APAP/CAFFEINE 50/325/40 TABLET 1 EACH PO (22:16)
[2018-11-06] VITALS (11 sets, daily range): BP systolic 87–130; BP diastolic 47–71; PULSE 65–86; RESP 16–18; TEMP 36.3–37.1; O2SAT 96–100; BMI 25.2
[2018-11-06] MEDS: HYDROCODONE/ACET 5/325 TABLET 2 TAB PO ×4 (03:08→23:29)
[2018-11-06] MEDS: SODIUM CHLORIDE 0.9% 1,000 ML 125 ML IV ×2 (03:14→11:22)
[2018-11-06 06:00] LABS: BUN Creatinine Ratio 25.7 (6-22); Blood Urea Nitrogen 18 mg/dL (7-17); Calcium 8.2 mg/dL (8.4-10.2); Carbon Dioxide 21 mmol/L (22-32); Chloride 115 mmol/L (98-107); Estimated Glomerular Filt Rate > 60.0 mL/min (>60); Glucose 80 mg/dL (80-110); HEMOLYSIS < 15 (0-50); Potassium 4.6 mmol/L (3.4-5.1); Sodium 141 mmol/L (137-145)
[2018-11-06 06:02] LABS: Basophils Absolute Auto 0 /uL (0-100); Basophils Percent Auto 0.6 % (0-2); Eosinophils Absolute Auto 400 /uL (0-450); Eosinophils Percent Auto 4.7 % (2-4); Hematocrit 28.1 % (36-46); Hemoglobin 9.2 g/dL (12.0-16.0); Lymphocytes Absolute Auto 2800 /uL (1100-4500); Lymphocytes Percent Auto 37.6 % (25-40); Mean Corpuscular HGB Conc 32.6 % (30-36); Mean Corpuscular Hemoglobin 31.1 PG (26-34); Mean Corpuscular Volume 95.4 fL (80-100); Monocytes Absolute Auto 500 /uL (0-900); Monocytes Percent Auto 6.6 % (3-14); Neutrophils Absolute Auto 3800 /uL (1500-7000); Neutrophils Percent Auto 50.5 % (50-75); Platelet Count 229 X10^3/uL (150-400); Red Blood Cell Count 2.95 X10^6/uL (4.0-5.2); Red Cell Distribution Width 17.6 % (11.6-14.8); White Blood Cell Count 7.4 X10^3/uL (4.5-11.0)
[2018-11-06 06:03] LABS: Add Manual Diff / Slide Review SLIDE REVIEW
[2018-11-06 06:58] LABS: Anisocytosis 2+; Microcytosis 2+
[2018-11-06 06:59] LABS: Hypochromasia 1+
[2018-11-06] MEDS: BUTALB/APAP/CAFFEINE 50/325/40 TABLET 1 EACH PO (07:33)
[2018-11-06] MEDS: buPROPion SR 150 MG TAB PO ×2 (07:34→20:34)
[2018-11-06] MEDS: CARBIDOPA-LEVODOPA 25/100 TABLET 1 EACH PO ×3 (07:35→20:34)
[2018-11-06] MEDS: POTASSIUM CHLORIDE 10 MEQ TAB PO (07:35)
[2018-11-06] MEDS: CITALOPRAM 20 MG TABLET 40 MG PO (07:35)
[2018-11-06] MEDS: ASPIRIN EC 81 MG TABLET PO (07:35)
[2018-11-06] MEDS: GABAPENTIN 600 MG TABLET PO (07:36)
[2018-11-06] MEDS: MIDODRINE HCL 5 MG TABLET 10 MG PO ×3 (07:36→20:33)
--- NOTE | 2018-11-06 07:53 | PM.PN.1 ---
Subjective Date Patient Seen: 11/06/18 Time Patient Seen: 07:54 Interval history: Veronique presents to hospital with a left proximal fibula fracture. Recently she has noticed increasing weakness. Apparently last night she had very difficult time moving difficult time walking. Resulting in falling she fell couple times she ended up wrenching her neck and injuring her knee resulting in a fracture of the proximal fibula. It was requested in a note that ortho was consulted but there was no phone call to commissioning editor Dr. Brady. Exam Vital Signs (past 8 hours): - 11/06/18 00:25 11/06/18 00:41 11/06/18 05:30 Temperature 98.0 F 97.8 F Pulse Rate 68 65 Respiratory Rate 16 16 Blood Pressure 130/68 Pulse Oximetry 100 100 100 Oxygen Delivery Method Room Air Narrative Exam Narrative: Patient lying in bed in NAD. Wearing knee immobilizer. Calves are soft, compressible, and nontender bilaterally. SILT throughout BLEs. Pulses symmetrical. Objective Imaging Tib/Fib X-ray: My impression: Nondisplaced fibular head/neck junction fracture. Shoulder: My impression: Osteoarthritis. No acute fracture. No osseous lesion. Labs Result Diagrams: 11/06/18 05:00 11/06/18 05:00 Labs: Laboratory Results - last 24 hr 11/05/18 11/05/18 11/05/18 10:50 10:50 10:50 WBC 9.0 RBC 3.51 L Hgb 10.9 L Hct 32.7 L MCV 93.0 MCH 31.1 MCHC 33.5 RDW 17.8 H Plt Count 310 Neut % (Auto) 65.4 Lymph % (Auto) 24.0 L [place] % (Auto) 7.8 Eos % (Auto) 2.2 Baso % (Auto) 0.6 Neut # (Auto) 5900 Lymph # (Auto) 2200 [place] # (Auto) 700 Eos # (Auto) 200 Baso # (Auto) 0 RBC Morphology See below Polychromasia 1+ H Hypochromasia 1+ H Anisocytosis 2+ H Microcytosis 1+ H Macrocytosis 1+ H Target Cells 1+ H PT 13.6 H INR 1.2 APTT 32 Sodium 140 Potassium 4.2 Chloride 111 H Carbon Dioxide 19 L BUN 29 H Creatinine 0.90 Estimated GFR > 60.0 BUN/Creatinine Ratio 32.2 H Glucose 130 H Calcium 9.2 Total Bilirubin 0.2 AST 17 ALT < 6 L Alkaline Phosphatase 55 Total Protein 6.3 Albumin 3.4 L Globulin 2.9 Albumin/Globulin Ratio 1.2 Lipase 72 Urine Color Urine Appearance Urine pH Ur Specific [place] Urine Protein Urine Glucose (UA) Urine Ketones Urine Occult Blood Urine Nitrate Urine Bilirubin Urine Urobilinogen Ur Leukocyte Esterase Urine RBC Urine WBC Ur Squamous Epith Cells Ur Renal Epithelial Cell Amorphous Sediment Urine Bacteria Urine Mucus Ur Culture Indicated? 11/05/18 11/06/18 11/06/18 14:20 05:00 05:00 WBC 7.4 RBC 2.95 L Hgb 9.2 L Hct 28.1 L MCV 95.4 MCH 31.1 MCHC 32.6 RDW 17.6 H Plt Count 229 Neut % (Auto) 50.5 Lymph % (Auto) 37.6 [place] % (Auto) 6.6 Eos % (Auto) 4.7 H Baso % (Auto) 0.6 Neut # (Auto) 3800 Lymph # (Auto) 2800 [place] # (Auto) 500 Eos # (Auto) 400 Baso # (Auto) 0 RBC Morphology See below Polychromasia Hypochromasia 1+ H Anisocytosis 2+ H Microcytosis 2+ H Macrocytosis Target Cells PT INR APTT Sodium 141 Potassium 4.6 Chloride 115 H Carbon Dioxide 21 L BUN 18 H Creatinine 0.70 Estimated GFR > 60.0 BUN/Creatinine Ratio 25.7 H Glucose 80 Calcium 8.2 L Total Bilirubin AST ALT Alkaline Phosphatase Total Protein Albumin Globulin Albumin/Globulin Ratio Lipase Urine Color Yellow Urine Appearance Cloudy Urine pH 5.0 Ur Specific [place] 1.025 Urine Protein Trace H Urine Glucose (UA) Negative Urine Ketones Negative Urine Occult Blood Negative Urine Nitrate Negative Urine Bilirubin Negative Urine Urobilinogen 0.2 Ur Leukocyte Esterase Trace H Urine RBC 0-1/hpf Urine WBC 5-10/hpf H Ur Squamous Epith Cells 1-5 /hpf Ur Renal Epithelial Cell 0-1/hpf Amorphous Sediment 3+ Urine Bacteria Few (2-10) H Urine Mucus 1+ H Ur Culture Indicated? Specimen cultured Assessment & Plan Assessment & Plan narrative: Formal ortho consult was never filed last night, and Dr. Brady was never called. Dr. Brady has reviewed the patient's shoulder and leg x-rays. She is found to have a nondisplaced proximal fibular fracture. The patient will be weight-bearing as tolerated. She does not need a knee immobilizer brace. Dr. Brady is not available this morning to see the patient. Please contact Dr. Brady directly if there are further questions regarding patient's care. We would be happy to follow up with the patient in 10-14 days in the office if needed. Quality VTE Deep Vein Thrombosis/Pulmonary Embolism Present on Admission: No
--- NOTE | 2018-11-06 09:08 | PM.PN.1 ---
Subjective Date Patient Seen: 11/06/18 Time Patient Seen: 09:08 Interval history: Fractured fibula. Claims to have had a ?bad? night. Has significant pain in the knee. Now is pain in the upper thigh and into the groin. Requesting IV Dilaudid. Chronic pain apparently is stable. She mainly complains of acute pain of her knee and thigh. On a clear liquid diet requesting real food. Exam Vital Signs (past 8 hours): - 11/06/18 05:30 11/06/18 07:45 11/06/18 08:16 Temperature 97.8 F 97.3 F L 98.8 F Pulse Rate 65 69 69 Respiratory Rate 16 16 18 Blood Pressure 130/68 112/71 127/71 Pulse Oximetry 100 100 100 Oxygen Delivery Method Room Air Oxygen Flow Rate 0 Narrative Exam Narrative: Patient is lying in her hospital bed appears in no distress conversant complaining of pain. Objective Labs Result Diagrams: 11/06/18 05:00 11/06/18 05:00 Labs: Laboratory Results - last 24 hr 11/05/18 11/05/18 11/05/18 10:50 10:50 10:50 WBC 9.0 RBC 3.51 L Hgb 10.9 L Hct 32.7 L MCV 93.0 MCH 31.1 MCHC 33.5 RDW 17.8 H Plt Count 310 Neut % (Auto) 65.4 Lymph % (Auto) 24.0 L Towner % (Auto) 7.8 Eos % (Auto) 2.2 Baso % (Auto) 0.6 Neut # (Auto) 5900 Lymph # (Auto) 2200 Towner # (Auto) 700 Eos # (Auto) 200 Baso # (Auto) 0 RBC Morphology See below Polychromasia 1+ H Hypochromasia 1+ H Anisocytosis 2+ H Microcytosis 1+ H Macrocytosis 1+ H Target Cells 1+ H PT 13.6 H INR 1.2 APTT 32 Sodium 140 Potassium 4.2 Chloride 111 H Carbon Dioxide 19 L BUN 29 H Creatinine 0.90 Estimated GFR > 60.0 BUN/Creatinine Ratio 32.2 H Glucose 130 H Calcium 9.2 Total Bilirubin 0.2 AST 17 ALT < 6 L Alkaline Phosphatase 55 Total Protein 6.3 Albumin 3.4 L Globulin 2.9 Albumin/Globulin Ratio 1.2 Lipase 72 Urine Color Urine Appearance Urine pH Ur Specific [place] Urine Protein Urine Glucose (UA) Urine Ketones Urine Occult Blood Urine Nitrate Urine Bilirubin Urine Urobilinogen Ur Leukocyte Esterase Urine RBC Urine WBC Ur Squamous Epith Cells Ur Renal Epithelial Cell Amorphous Sediment Urine Bacteria Urine Mucus Ur Culture Indicated? 11/05/18 11/06/18 11/06/18 14:20 05:00 05:00 WBC 7.4 RBC 2.95 L Hgb 9.2 L Hct 28.1 L MCV 95.4 MCH 31.1 MCHC 32.6 RDW 17.6 H Plt Count 229 Neut % (Auto) 50.5 Lymph % (Auto) 37.6 Towner % (Auto) 6.6 Eos % (Auto) 4.7 H Baso % (Auto) 0.6 Neut # (Auto) 3800 Lymph # (Auto) 2800 Towner # (Auto) 500 Eos # (Auto) 400 Baso # (Auto) 0 RBC Morphology See below Polychromasia Hypochromasia 1+ H Anisocytosis 2+ H Microcytosis 2+ H Macrocytosis Target Cells PT INR APTT Sodium 141 Potassium 4.6 Chloride 115 H Carbon Dioxide 21 L BUN 18 H Creatinine 0.70 Estimated GFR > 60.0 BUN/Creatinine Ratio 25.7 H Glucose 80 Calcium 8.2 L Total Bilirubin AST ALT Alkaline Phosphatase Total Protein Albumin Globulin Albumin/Globulin Ratio Lipase Urine Color Yellow Urine Appearance Cloudy Urine pH 5.0 Ur Specific [place] 1.025 Urine Protein Trace H Urine Glucose (UA) Negative Urine Ketones Negative Urine Occult Blood Negative Urine Nitrate Negative Urine Bilirubin Negative Urine Urobilinogen 0.2 Ur Leukocyte Esterase Trace H Urine RBC 0-1/hpf Urine WBC 5-10/hpf H Ur Squamous Epith Cells 1-5 /hpf Ur Renal Epithelial Cell 0-1/hpf Amorphous Sediment 3+ Urine Bacteria Few (2-10) H Urine Mucus 1+ H Ur Culture Indicated? Specimen cultured preliminary urine culture is positive for bacteria. Further identification pending patient has had recurrent urinary tract infections Assessment & Plan Assessment & Plan narrative: 1. Fractured left fibula evaluated by Orthopedics nothing recommended a. Discontinue knee brace. Okay to have be weight-bearing physical therapy forthcoming. 2. Chronic pain management ongoing agenda. This is discussed with her multiple times again today. Will continue on the hydrocodone code own 2 tablets every 6 hours when not increase this. Will up the dose of her gabapentin to 1200 mg 3 times a day. Will also increase her BU butalbital to 2 tablets every 4-6 hours she takes for headache but she could also take this for pain. Because the acute problem I will give her 1 dose of IV Dilaudid 1 mg and explained to her that she will not get any more IV Dilaudid speed on last 4. This will be conveyed to doctors on-call for me tonight and the rest of the weekend as I will be absent. 3. Apparent urinary tract infection she has 2 bacteria in her urine chart shows her had recurrent tract infections no antibiotics to be scribed at this time with pending the sensitivity and defecation. 4. Chronic depression being evaluated and seen by Dr. Monae psychiatrist recommended continuation of same. Appreciate his input. 5. Chronic anemia being evaluated by Dr. Clinton sometime today. 6. Discharge planning forthcoming hopefully able to discharge her to a facility of some sort to allow for ongoing management of her weight loss, diet, chronic pain, physical therapy, occupation ever. Patient feels this be appropriate place is actually in 4 to some sort of facility placement Quality VTE Deep Vein Thrombosis/Pulmonary Embolism Present on Admission: No
[2018-11-06] MEDS: HYDROMORPHONE 0.5 MG INJ 1 MG IV (09:52)
[2018-11-06] MEDS: GABAPENTIN 600 MG TABLET 1200 MG PO ×3 (09:53→20:34)
[2018-11-06] MEDS: FERROUS SULFATE 325 MG TABLET PO ×2 (09:54→20:34)
[2018-11-06] MEDS: BUTALB/APAP/CAFFEINE 50/325/40 TABLET 2 EACH PO ×2 (09:55→23:29)
--- NOTE | 2018-11-06 09:59 | PT.IPTN ---
Current Diagnoses Major depressive disorder, single episode, unspecified (11/05/18) Weakness (11/05/18) Anorexia (11/05/18) Physical Therapy Treatment Note M2 PT-IP Current Condition Start: 11/05/18 17:46 Freq: NEEDED Status: Active Protocol: Document 11/05/18 15:39 AB (Rec: 11/05/18 18:02 AB [id number]) Physical Therapy Current Condition Current Condition Evaluation Date 11/05/18 Treatment Diagnosis h/o falls; L fibular head/neck fx; difficulty in walking Onset Date 11/05/18 Precautions Brace L knee immobilizer Weight Bearing Status Weight Bearing Status Weight Bear as Tolerated Allowed Weight Bearing Amount (enter % WBAT per Dr. Zurita or #) (%) M3 PT-IP Subjective Start: 11/05/18 17:46 Freq: NEEDED Status: Active Protocol: Document 11/06/18 09:53 SA (Rec: 11/06/18 09:58 SA [id number]) Subjective Physical Therapy Visit Type Type Treatment Note Visit Start Time 09:28 Visit Stop Time 09:52 Total Visit Minutes 24 Notes Pt just finished with OT Number of [employer] Visits 1 Physical Therapy Visit Comments Patient Comments Agreeable to walking Therapy Pain Assessment Pain When Pain Assessed During Mobility Pain Present Pain Present Pain Reported Location Left tib /fib Intensity 8 Scale Used Numeric (1 - 10) Pain Management Techniques Re-positioning Timing of Activity with Medications M4 PT-IP Mobility and Gait Start: 11/05/18 17:46 Freq: NEEDED Status: Active Protocol: Document 11/06/18 09:53 SA (Rec: 11/06/18 09:58 [id number]) PT-Bed Mobility Assessment Rolling Level of Assist Standby Assistance Supine to Sit Supine to Sit Standby Assistance Sit to Supine Sit to Supine Standby Assistance Scooting Scooting to Edge of Bed Standby Assistance Scooting Up and Down in Bed Standby Assistance PT-Transfer Assessment Sit to and From Stand Sit to and from Stand Contact Guard Assistance Equipment Transfer Assistive Device Gait Belt Front Wheeled Walker Orthotic/Prosthetic Devices or Brace: Yes Transfers Transfer Destination Chair Transfer Technique Stand Step Pivot Transfer Ability Level of Assist Contact Guard Assistance 1 Person Assistance Comments Mobility Comments Pt no longer needs to don knee immobilizer, CGa with transfers and sit to stands. Gait Assessment Gait Gait Assistance Required: Contact Guard Assist Distance (Feet) 25 Assistive Devices Assistive Device Gait Belt Front Wheeled Walker Orthotic/Prosthetic Devices or Brace: Yes Gait Deviations General Gait Pattern Antalgic Decreased Stride Length Decreased Feet Clearance Factors Limiting Gait Function Factors Limiting Gait Function Decreased Activity Tolerance Decreased Strength Limited Range of Motion Pain Poor Balance Poor Safety Awareness Comments Gait Comments Antalgic gait with cues for upright posture and safe use of FWW. M5 PT-IP Objective Assessments Start: 11/05/18 17:46 Freq: NEEDED Status: Active Protocol: Document 11/05/18 15:39 AB (Rec: 11/05/18 18:02 AB [id number]) Orientation Orientation/Cognition Level of Alertness Alert Orientation Name Place Situation Language Function Ability No Deficits Noted Gross Range of Motion Lower Extremity ROM Assessment Left Impaired Impairments L knee immobilizer on Strength Lower Extremity Strength Assessment Bilaterally Impaired Comments Strength Comments RLE 4-/5 LLE 3+/5 Coordination Assessment Gross Coordination Gross Coordination WNL Sensation Assessment Sensation Gross Sensation Right LE Impaired Left LE Impaired Light Touch Impaired Proprioception (Position) Impaired Comments Sensation Comments pt has neuropathy on BLE Muscle Tone Muscle Tone WNL Yes M6 PT-IP Treatment Start: 11/05/18 17:46 Freq: NEEDED Status: Active Protocol: Document 11/06/18 09:53 SA (Rec: 11/06/18 09:58 SA [id number]) Physical Therapy Treatment Exercises Exercises Ankle Pumps Gluteal Sets Quad Sets Education Education Provided Precautions Weight Bearing Status Safety Other Treatments Other Treatment Performed Repeated sit to stans form chair with SBA. M7 PT-IP Assessment and Plan Start: 11/05/18 17:46 Freq: NEEDED Status: Active Protocol: Document 11/06/18 09:53 SA (Rec: 11/06/18 09:58 [id number]) PT Summary Assessment and Plan Summary Impairments Pain ROM Strength Balance Coordination Sensation Tone Cognition Bed Mobility Transfers Gait Activity Tolerance Assessment Summary PT CGW txs and gait, cues for safety. Wants to go to SNF for continued rehab to get stronger prior to dd/c home. Frequency of Treatment Frequency Of Treatment Twice a Day Treatment Plan Physical Therapy Treatment Plan Bed Mobility Training Transfer Training Gait Training Therapeutic Exercise Balance Retraining Discharge Planning Hot or Cold Pack Neuromuscular Re-ed Coordination Retraining Other Recommendations and Next Treatment ambulation, caregiver training Focus , stair training Recommendations To Nursing Amount of Assist Needed 1 Person Assist Discharge Recommendations PT Discharge Recommendations Home with 20/11 Assist Outpatient PT Equipment Needed for Home Before FWW if not safe with 4WW Discharge
--- NOTE | 2018-11-06 12:29 | DIET.PN ---
Dietary Progress Note Assessment: 73y F referred for nutrition consult re MNA score 8-at risk HT: 162.5cm WT: 66.8kg UBW: 94kg (-28% in 3m, severe) BMI: 25.3 Labs: hgb 9.2 (L), RDW 17.6 (H), MCV normal, Albumin 3.4 (L, active UTI) Pt in room alone, pleasant conversation, drinking cola mixed c whole milk, reports having unintentionally lost 60# (28% loss, severe) in 3 months I'm not doing anything differently. Began as 2w nausea and vomiting, since then, nothing looks good doesn't have appetite. cares and cooks for pt, reports food secure. Pt able to walk from bedroom to front room but then needs to sit and catch breath. Usual intake (past 3m) wakes 9-10am B: 2 eggs c tomato and onion, glass oj L: tomato soup c cheese, but would be satisfied c piece of salted watermelon D: 1-2oz meatloaf/roast/chicken, c salad (lettuce, tomato, green onion), small baked potato c sour cream, salt, and pepper rarely snacks if snack, fruit *Does wake around midnight 4x/w and has snack Pt knows she doesn't drink enough fluids, usually 32oz/d (47% of needs) Usual intake >3m ago was same but much larger portions. Pt denies bleeding events, denies red/black stool, denies craving non-food items (pica). Pt experiencing chronic constipation for past 3m, sometimes goes a week without stooling and has to strain to get it out, reports trouble c hemorrhoids. Nutrition Diagnosis: Acute Moderate PCM r/t decreased appetite and inadequate oral intake aeb <75% EER for 3 months, nausea and vomiting for 2w, unintentional wt loss of 28% (severe) over 3 months, hgb 9.2 (L), and multiple ER visits d/t weakness, falls. Interventions: Consider testing B12 and B6 r/t hematological lab results General diet order c yogurt/cottage cheese/or cheese stick added on each tray to be consumed as snack bw meals. Encouraged small frequent meals ensuring PRO with each, keeping fluids nearby to sip throughout the day. Gave handout on high PRO iron containing foods. Recc MVI. Monitoring/Evaluations: PRO and kcal intake, wt, associated labs
--- NOTE | 2018-11-06 13:09 | OT.IP.EVAL ---
Current Diagnoses Major depressive disorder, single episode, unspecified (11/05/18) Weakness (11/05/18) Anorexia (11/05/18) Past Medical History (Last Reviewed 11/05/18 @ 17:03 by Corby Zurita MD) Hyperthyroidism (Chronic ~2004) Gastric ulcer (Chronic ~1991) History of irregular menstrual cycles (Chronic ~1989) Ovarian cyst (Chronic ~1999) Painful menstrual periods (Chronic ~1978) Anemia (Chronic ~2004) Chicken pox (Resolved) Measles (Resolved) Mumps (Resolved) Chronic back pain (Chronic ~2009) Foot pain (Chronic ~2010) Fractures (Chronic ~2011) Neuropathy (Chronic ~2008) Headache (Chronic ~1989) Migraines (Chronic ~1989) Restless leg syndrome (Chronic ~1989) Lupus (Chronic ~1999) Arthritis (Chronic) Surgical History (Last Reviewed 11/05/18 @ 17:03 by Corby Zurita MD) H/O hernia repair (Acute) S/P foot surgery, right (Acute) Gastric bypass status for obesity (Acute) Hx of resection of stomach (Resolved) Occupational Therapy Inpatient Evaluation/Re-Eval M1 PT/OT-IP Prior Functional Status Start: 11/06/18 12:35 Freq: NEEDED Status: Active Protocol: Document 11/06/18 12:35 [facility] (Rec: 11/06/18 13:09 [facility] [id number]) Medical Review Prior Functional Status Medical History Reviewed Yes Diet/Fluid Consistency Thin Liquids Communication able to make needs known Mobility and Gait pt stated that she is modified independent with all mobilities and ambulation using 4WW Activities of Daily Living and IADL's Pt states prior independent with all ADl's and did all IADl needs as well as paying the bills. 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 Prior Functional Level (Other details) Pt's 50 year old son also lives in the house and able to assist when not at work. Social History Household Members spouse children Living Arrangements House Number of Floors (Floors) One Floor Number of Stairs To Enter/Railing? 2 steps to enter with L rail ascending Home Environment Standard Height Toilet Walk in Shower Home Equipment Four Wheel Walker Shower Seat without Backrest Hand Held Shower Grab Bars In Shower Additional Social History Comment pt has a safety frame around the toilet M2 OT-IP Current Condition Start: 11/06/18 12:35 Freq: Status: Active Protocol: Document 11/06/18 12:35 [facility] (Rec: 11/06/18 13:09 [facility] [id number]) Occupational Therapy Current Condition Current Condition Evaluation Date 11/06/18 Treatment Diagnosis Left fibular head/neck FX, weakness Post Operative Precautions Other Precautions Per PA on 11/06/18 Edith Bowser' Radu notes that knee immobilizer not needed. OT saw pt prior to note written therefore saw pt with knee immoblizer on. Weight Bearing Status Weight Bearing Status Weight Bear as Tolerated M3 OT- IP Subjective and Pain Start: 11/06/18 12:35 Freq: Status: Active Protocol: Document 11/06/18 12:35 [facility] (Rec: 11/06/18 13:09 [facility] [id number]) OT- Subjective Occupational Therapy Visit Type Type Initial Evaluation Visit Start Time 09:05 Visit Stop Time 09:35 Total Visit Minutes 30 Occupational Therapy Visit Comments Patient Comments Pt wanting to get up and requesting to go to skilled rehab as does not want to be too much of a burden for her to take of. Patient/Caregiver Goals Pt wanting to go to skilled rehab. OT Pain Assessment Pain When Pain Assessed At Rest Pain Present Pain Present Pain Reported Location Left tib /fib Intensity 8 Scale Used Numeric (1 - 10) M4 OT- IP ADL's Start: 11/06/18 12:35 Freq: Status: Active Protocol: Document 11/06/18 12:35 [facility] (Rec: 11/06/18 13:09 [facility] [id number]) OT ADL-Grooming General Evaluation Grooming Ability Standby Assistance Areas Needing Assistance Retrieving/Set-up of Grooming Items Comments OT Grooming Comments Pt able to do all grooming while standing at the sink with FWW with SBA. OT ADL-Oral Care General Eval Oral Care Ability Independent OT ADL-Dressing General Eval Lower Body Dressing Ability Moderate Assistance Areas Needing Assistance Socks Comments OT Dressing Comments Due to pt still has knee immobilize on LLE, pt needing assist for left sock. Pt able to mohamud right sock on her own . OT ADL-Toileting General Evaluation Toileting Ability Standby Assistance Devices Toileting Assistive Devices Commode Comments OT Toileting Comments Pt able to use BSC for toileting with SBA. OT ADL-Bathing Comments OT Bathing Comments Pt to attempt showering tomorrow. M5 OT- IP IADL's Start: 11/06/18 12:35 Freq: Status: Active Protocol: Document 11/06/18 12:35 [facility] (Rec: 11/06/18 13:09 [facility] [id number]) OT-Instrumental Activities of Daily Living Medication Management Medication Management No Deficits Identified Money Management Money Management Caregiver Provides Assistance Meal Preparation Meal Preparation Caregiver Provides Assist [employer] Dynamics Ax Developer [employer] Ax Developer Caregiver Provides Assist Driving Driving Caregiver Provides Assist Driving Comments Pt not longer drives due to her neuropathy. M6 OT- IP Functional Cognition Start: 11/06/18 12:35 Freq: Status: Active Protocol: Document 11/06/18 12:35 [facility] (Rec: 11/06/18 13:09 [facility] [id number]) Cognitive Factors Limiting Selfcare Function Cognitive Ability Level of Alertness Alert Patient Orientation Name Age Birthday Month Date Year Day of Week Place Situation Attention Span Ability Capable of Focused Attention Capable of Sustained Attention Ability to Follow Commands Able to Follow Multi-Step Commands Memory Description No Deficits Noted Cognitive Comments Cognitive Assessment Comments Pt appears intact. OT- Vision and Hearing OT- Hearing Assessment OT- Hearing Assessment WFL M7 OT- IP Mobility and Balance Start: 11/06/18 12:35 Freq: Status: Active Protocol: Document 11/06/18 12:35 [facility] (Rec: 11/06/18 13:09 [facility] [id number]) OT- Bed Mobility Assessment Rolling Type of Rolling Roll to Left Level of Assistance Standby Assistance Supine to Sit Supine to Sit Assist Standby Assistance 1 Person Assistance Sit to Supine Sit to Supine Assist Standby Assistance 1 Person Assistance Scooting Scooting to Edge of Bed Standby Assistance 1 Person Assistance Scooting Up and Down in Bed Standby Assistance 1 Person Assistance OT-Transfer Assessment Sit to and From Stand Sit to and from Stand Contact Guard Assistance 1 Person Assistance Transfers Transfer Ability Contact Guard Assistance 1 Person Assistance Technique Transfer Destination Bed Bedside Commode Transfer Technique Stand Step Pivot Devices Transfer Assistive Devices Gait Belt Front Wheeled Walker Comments Mobility Comments CGA to come to stand and for walking with FWW in the room. OT- Balance Assessment Sitting Balance and Reactions Static Sitting Balance Ability Normal Dynamic Sitting Balance Ability Good Standing Balance and Reactions Static Standing Balance Ability Good M8 OT- IP Objective Assessments Start: 11/06/18 12:35 Freq: Status: Active Protocol: Document 11/06/18 12:35 [facility] (Rec: 11/06/18 13:09 [facility] [id number]) OT Gross Range of Motion Upper Extremity Range of Motion Assessment Within Functional Limits OT Strength Comments Strength Comments BUE strength 4/5 OT-Muscle Tone Assessment Muscle Tone WNL Yes M9 OT- IP Assessment and Plan Start: 11/06/18 12:35 Freq: Status: Active Protocol: Document 11/06/18 12:35 [facility] (Rec: 11/06/18 13:09 [facility] [id number]) OT Summary Assessment and Plan Potential Rehabilitation Potential Excellent Analytic Complexity at Evaluation Low Summary OT Impairments Pain Balance Functional Mobility Grooming Dressing Toileting Bathing Toilet Transfers Shower Transfers Progress Towards Goals Progressing Toward Goals Assessment Summary Pt low complexity and main barrier is steps, activity tolerance, strength. Pt at this time needing MODA for ADL needs, which is not at her baseline. However pt no longer needing to use knee immobilizer and therefore will need less assist for needs. Pt wanting to go to skilled rehab as not wanting to burden her . Recommend at this time home with assist with home health or outpt PT. Goals Grooming Goal Independent Dressing Goal Independent Toileting Goal Independent Bathing Goal Standby Assistance Toilet Transfer Goal Independent Shower Transfer Goal Standby Assistance Patient/Caregiver Education Goal Demonstrate Energy Conservation and Pacing Caregiver Independent Assisting Patient Days to Meet Goals 5 Frequency of Treatment Frequency Of Treatment Once a Day Treatment Plan OT Treatment Plan ADL Training Functional Mobility Patient/Family Education Discharge Planning Other Treatment Recommendations and Next Shower Treatment Focus Discharge Recommendations OT Discharge Recommendations Home with Assistance Home Health Outpatient PT
--- NOTE | 2018-11-06 13:40 | PT.IPTN ---
Current Diagnoses Major depressive disorder, single episode, unspecified (11/05/18) Weakness (11/05/18) Anorexia (11/05/18) Physical Therapy Treatment Note M2 PT-IP Current Condition Start: 11/05/18 17:46 Freq: NEEDED Status: Active Protocol: Document 11/05/18 15:39 AB (Rec: 11/05/18 18:02 AB [id number]) Physical Therapy Current Condition Current Condition Evaluation Date 11/05/18 Treatment Diagnosis h/o falls; L fibular head/neck fx; difficulty in walking Onset Date 11/05/18 Precautions Brace L knee immobilizer Weight Bearing Status Weight Bearing Status Weight Bear as Tolerated Allowed Weight Bearing Amount (enter % WBAT per Dr. Zurita or #) (%) M3 PT-IP Subjective Start: 11/05/18 17:46 Freq: NEEDED Status: Active Protocol: Document 11/06/18 15:40 GGD (Rec: 11/06/18 16:29 GGD [id number]) Subjective Physical Therapy Visit Type Type Treatment Note Visit Start Time 15:10 Visit Stop Time 15:40 Total Visit Minutes 30 Physical Therapy Visit Comments Patient Comments Pt would like to walking Therapy Pain Assessment Pain When Pain Assessed During Mobility Pain Present Pain Present Pain Reported M4 PT-IP Mobility and Gait Start: 11/05/18 17:46 Freq: NEEDED Status: Active Protocol: Document 11/06/18 15:40 GGD (Rec: 11/06/18 16:29 GGD [id number]) PT-Bed Mobility Assessment Rolling Level of Assist Standby Assistance Supine to Sit Supine to Sit Standby Assistance Sit to Supine Sit to Supine Standby Assistance Scooting Scooting to Edge of Bed Standby Assistance Scooting Up and Down in Bed Standby Assistance PT-Transfer Assessment Sit to and From Stand Sit to and from Stand Contact Guard Assistance Equipment Transfer Assistive Device Gait Belt 4 Wheeled Walker Orthotic/Prosthetic Devices or Brace: Yes Transfers Transfer Destination Chair Toilet Transfer Ability Level of Assist Contact Guard Assistance 1 Person Assistance Gait Assessment Gait Gait Assistance Required: Standby Assistance Contact Guard Assist Distance (Feet) 130 Assistive Devices Assistive Device Gait Belt Front Wheeled Walker Orthotic/Prosthetic Devices or Brace: Yes Gait Deviations General Gait Pattern Antalgic Decreased Stride Length Decreased Feet Clearance Factors Limiting Gait Function Factors Limiting Gait Function Decreased Activity Tolerance Decreased Strength Limited Range of Motion Pain Poor Balance Poor Safety Awareness M5 PT-IP Objective Assessments Start: 11/05/18 17:46 Freq: NEEDED Status: Active Protocol: Document 11/05/18 15:39 AB (Rec: 11/05/18 18:02 AB [id number]) Orientation Orientation/Cognition Level of Alertness Alert Orientation Name Place Situation Language Function Ability No Deficits Noted Gross Range of Motion Lower Extremity ROM Assessment Left Impaired Impairments L knee immobilizer on Strength Lower Extremity Strength Assessment Bilaterally Impaired Comments Strength Comments RLE 4-/5 LLE 3+/5 Coordination Assessment Gross Coordination Gross Coordination WNL Sensation Assessment Sensation Gross Sensation Right LE Impaired Left LE Impaired Light Touch Impaired Proprioception (Position) Impaired Comments Sensation Comments pt has neuropathy on BLE Muscle Tone Muscle Tone WNL Yes M6 PT-IP Treatment Start: 11/05/18 17:46 Freq: NEEDED Status: Active Protocol: Document 11/06/18 15:40 GGD (Rec: 11/06/18 16:29 GGD [id number]) Physical Therapy Treatment Exercises Exercises Ankle Pumps Gluteal Sets Quad Sets Education Education Provided Safety M7 PT-IP Assessment and Plan Start: 11/05/18 17:46 Freq: NEEDED Status: Active Protocol: Document 11/06/18 15:40 GGD (Rec: 11/06/18 16:29 GGD [id number]) PT Summary Assessment and Plan Summary Assessment Summary Pt improving with mobility. She was able to progress gait. She was safe with 4WW. She did need cues for posture. Frequency of Treatment Frequency Of Treatment Twice a Day Treatment Plan Physical Therapy Treatment Plan Bed Mobility Training Transfer Training Gait Training Therapeutic Exercise Balance Retraining Discharge Planning Hot or Cold Pack Neuromuscular Re-ed Coordination Retraining Other Recommendations and Next Treatment ambulation, caregiver training Focus , stair training Recommendations To Nursing Amount of Assist Needed 1 Person Assist Discharge Recommendations PT Discharge Recommendations Home with Assistance Home Health
--- NOTE | 2018-11-06 15:22 | PC.NURSE ---
Pt cont. to rate pain 5-9/10 on 0-10 pain scale despite repositioning, ice, elevation, and current med regimen. Pt is requesting this RN call Dr. Zurita for IV dilaudid. Called to Dr. uZrita and reported pt request with pain rating. No new orders received.
--- NOTE | 2018-11-06 15:30 | CM.DANOTE ---
DCP/Assessment: Reviewed chart. Patient is a 73yr old female admitted under OBS status with weakness. PCP is Dr. Zurita. Primary payor is 1)Medicare 2)[facility]. Spoke with Dr. Zurita this AM. He would like patient to go to SNF if she qualifies. MD aware that patient is under OBS status. Patient seen by both PT/OT and current recommendation is home with home health and family assistance. Met with patient explained MONITORING ENGINEER role. Spouse/Gavin at bedside. Patient unclear on why she is Observation explained to patient and spouse acute care criteria. Patient reports that she would like to go to SNF? Notified patient that she does not qualify under Medicare guidelines and that it is very doubtful she will qualify under [place] guidelines. Patient requesting that CM team place call to [facility] to check. MONITORING ENGINEER left vm with September requesting that she check on secondary coverage for SNF. Patient with several ED visits with similar complaints after a fall. Patient with h/o chronic pain and mental health history. Per notes patient active with [facility] management [facility] (see notes for details). Patient and spouse aware that patient most likely will be discharged home tomorrow. Patient reluctant but agreeable. Spouse reports that he is home with her all day. Patient agreeable to . First agency choice is [facility]. Spouse reports that patient previously on service with [facility] but services go discontinued due to lack to participation. Patient requests that we attempt to obtain services through [facility] before trying another agency. Asked WINDOW SHADE ESTIMATOR/Akit to call [facility] to see if they will consider. F2F needs to be signed and order obtained. P: CM team coordinating d/c plan for patient to return home with . Patient made aware that she does not qualify for SNF. JONATHAN Rodriguez
[2018-11-06 15:34] LABS: Hemoglobin A1C% w Est Avg Glu 5.6 % (4.0-6.0)
--- NOTE | 2018-11-06 16:54 | ONC.PN ---
PN -Subjective Interval history: Diagnosis: Anemia History of present illness: Veronique Gould is a 73 year old female who who I saw initially in September for evaluation of anemia. She was hospitalized in the spring with an infection. While in the hospital, she is noted to have an anemia with a hemoglobin of 10.7 that dropped as low as 8.4. She did not have a transfusion. On repeat on October 07, hemoglobin had improved to 11.9 and hematocrit 36.9. After that in late September, her hemoglobin and hematocrit were normal. She was seen in the emergency room a couple of times with nausea and vomiting so it is possible that she might have been somewhat volume contracted. Since I saw her last, she has not had any unusual bleeding or bruising. She denies any epistaxis or gingival bleeding. No blood in the urine or stool. She has not noted any vaginal bleeding. She did have a fall with a fracture of her left lower leg. While she has been in the hospital, her hemoglobin is dropped as low as 9.2. Last year, she was clearly iron deficient with a low ferritin. She was treated with IV iron. She has had a couple of transfusions in the past, the most recent was a few years ago. She notes that she has had chronic anemia off and on. She notes that she has been losing some weight. She has lost more than 40 lb over the last few months. She is eating. She feels like her appetite is fair. No nausea or vomiting. No fevers chills or sweats. She does have some chronic dyspnea on exertion and shortness of breath. She does use a walker and is able to walk on level ground. She struggles with hills however. She does have intermittent lightheadedness. She has had longstanding history of hypotension. She sometimes takes midodrine for this. Her past medical history is notable for prior stomach surgery. She has had a history of diabetes. She does have history of orthostatic hypotension. She has chronic back pain. She has migraine headaches. Her medications include aspirin bupropion Sinemet citalopram gabapentin hydrocodone she is on a course of levofloxacin and has 2 more days remaining. Levothyroxine lovastatin might a drain potassium and temazepam. She has iron listed on her medication list but is not taking it. Family history is negative for anemia or blood dyscrasias. 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 She previously worked in a [employer]. She does not smoke or use alcohol. Home Medications and Allergies Home Medications Medication Instructions Recorded Confirmed Type Diabetic Shoes 1 pkg MISCELLANEOUS DIRECTED 01/14/18 11/05/18 History Walker: Four Wheel 1 u MISCELLANEOUS DIRECTED 01/14/18 11/05/18 History bupropion HCl 150 mg PO BID 03/05/18 11/05/18 History levothyroxine 175 mcg tablet 175 mcg PO DAILY #90 tab 07/22/18 11/05/18 Rx ferrous sulfate [FeroSul] 1 tab PO BID 08/04/18 11/05/18 History blood-glucose meter kit #1 each 08/27/18 11/05/18 Rx aspirin 81 mg PO DAILY 08/28/18 11/05/18 History lovastatin 5 mg PO Q OTHER DAY 08/28/18 11/05/18 History potassium chloride [Klor-Con M10] 10 meq PO DAILYCC #30 tab 09/01/18 11/05/18 Rx [id number] See Rx Instructions .ROUTE 09/27/18 11/05/18 Rx 50 mg-325 mg-40 mg tablet .COMPLEX PRN #60 tab citalopram 20 mg tablet 40 mg PO DAILY #60 tab 09/27/18 11/05/18 Rx carbidopa 25 mg-levodopa 100 mg 1 tab PO TID #90 tab 10/02/18 11/05/18 Rx tablet ondansetron 4 mg PO Q6H PRN #30 tab 10/20/18 11/05/18 Rx blood sugar diagnostic strips #100 each 10/22/18 11/05/18 Rx gabapentin 600 mg tablet 600 - 1,200 mg PO TID #90 tab 10/22/18 11/05/18 Rx lancets #100 each 10/22/18 11/05/18 Rx hydrocodone-acetaminophen 1 - 2 tab PO QID PRN 11/05/18 11/05/18 History midodrine 10 mg PO TID 11/05/18 11/05/18 History temazepam 15 mg capsule 15 mg PO BEDTIME PRN #20 cap 11/05/18 11/05/18 Rx Allergies Allergy/AdvReac Type Severity Reaction Status Date / Time amoxicillin [From AUGMENTIN] Allergy Mild RASH Verified 10/30/18 11:56 clavulanic acid Allergy Mild RASH Verified 10/30/18 11:56 [From AUGMENTIN] metformin [METFORMIN] AdvReac Severe SWELLING Verified 10/30/18 11:56 Exam Vital signs: Vital Signs Temp Pulse Resp BP Pulse Ox 11/06/18 16:07 97 11/06/18 15:40 98.0 F 79 18 99/47 L 98 11/06/18 11:29 97.9 F 78 16 87/49 L 99 11/06/18 08:16 98.8 F 69 18 127/71 100 11/06/18 07:45 97.3 F L 69 16 112/71 100 11/06/18 05:30 97.8 F 65 16 130/68 100 11/06/18 00:41 100 11/06/18 00:25 98.0 F 68 16 100 11/05/18 19:54 99.2 F 75 18 115/63 100 Intake and Output 11/06/18 11/06/18 11/06/18 07:59 15:59 23:59 Intake Total 954.167 / 9348.360 2524 / 1954.167 Output Total 500 / 650 150 / 650 Balance 454.167 / 1304.167 850 / 1304.167 Intake: IV 954.167 / 6089.814 8921 / 1954.167 Sodium Chloride 0.9% 1,000 ml @ 954.167 / 9019.160 2244 / 1954.167 125 mls/hr IV CONT FRANCINE Rx#: [id number] Output: Urine 500 / 650 150 / 650 Other: Weight 66.8 kg 66.8 kg Patient Weight 11/06/18 23:59 Weight 66.8 kg - Constitutional positive no acute distress, positive average body habitus Comments: She is not further examined. Results - Labs Laboratory Last Values WBC 7.4 X10^3/uL (4.5-11.0) 11/06/18 05:00 RBC 2.95 X10^6/uL (4.0-5.2) L 11/06/18 05:00 Hgb 9.2 g/dL (12.0-16.0) L 11/06/18 05:00 Hct 28.1 % (36-46) L 11/06/18 05:00 MCV 95.4 fL (80-100) 11/06/18 05:00 MCH 31.1 PG (26-34) 11/06/18 05:00 MCHC 32.6 % (30-36) 11/06/18 05:00 RDW 17.6 % (11.6-14.8) H 11/06/18 05:00 Plt Count 229 X10^3/uL (150-400) 11/06/18 05:00 Neut % (Auto) 50.5 % (50-75) 11/06/18 05:00 Lymph % (Auto) 37.6 % (25-40) 11/06/18 05:00 [place] % (Auto) 6.6 % (3-14) 11/06/18 05:00 Eos % (Auto) 4.7 % (2-4) H 11/06/18 05:00 Baso % (Auto) 0.6 % (0-2) 11/06/18 05:00 Neut # (Auto) 3800 /uL (3542-2125) 11/06/18 05:00 Lymph # (Auto) 2800 /uL (1339-3529) 11/06/18 05:00 [place] # (Auto) 500 /uL (0-900) 11/06/18 05:00 Eos # (Auto) 400 /uL (0-450) 11/06/18 05:00 Baso # (Auto) 0 /uL (0-100) 11/06/18 05:00 RBC Morphology See below 11/06/18 05:00 Polychromasia 1+ H 11/05/18 10:50 Hypochromasia 1+ H 11/06/18 05:00 Anisocytosis 2+ H 11/06/18 05:00 Microcytosis 2+ H 11/06/18 05:00 Macrocytosis 1+ H 11/05/18 10:50 Target Cells 1+ H 11/05/18 10:50 PT 13.6 SECONDS (10.1-12.7) H 11/05/18 10:50 INR 1.2 (0.9-1.3) 11/05/18 10:50 APTT 32 SECONDS (26.4-36.2) 11/05/18 10:50 Sodium 141 mmol/L (137-145) 11/06/18 05:00 Potassium 4.6 mmol/L (3.4-5.1) 11/06/18 05:00 Chloride 115 mmol/L (98-107) H 11/06/18 05:00 Carbon Dioxide 21 mmol/L (22-32) L 11/06/18 05:00 BUN 18 mg/dL (7-17) H 11/06/18 05:00 Creatinine 0.70 mg/dL (0.52-1.04) 11/06/18 05:00 Estimated GFR > 60.0 mL/min (>60) 11/06/18 05:00 BUN/Creatinine Ratio 25.7 (6-22) H 11/06/18 05:00 Glucose 80 mg/dL (80-110) 11/06/18 05:00 Hemoglobin A1c 5.6 % (4.0-6.0) 11/06/18 05:00 Calcium 8.2 mg/dL (8.4-10.2) L 11/06/18 05:00 Total Bilirubin 0.2 mg/dL (0.2-1.3) 11/05/18 10:50 AST 17 IU/L (14-36) 11/05/18 10:50 ALT < 6 IU/L (9-52) L 11/05/18 10:50 Alkaline Phosphatase 55 U/L (38-126) 11/05/18 10:50 Total Protein 6.3 g/dL (6.3-8.2) 11/05/18 10:50 Albumin 3.4 g/dL (3.5-5.0) L 11/05/18 10:50 Globulin 2.9 g/dL (1.7-4.1) 11/05/18 10:50 Albumin/Globulin Ratio 1.2 (1.0-2.8) 11/05/18 10:50 Lipase 72 U/L (23-300) 11/05/18 10:50 Urine Color Yellow 11/05/18 14:20 Urine Appearance Cloudy 11/05/18 14:20 Urine pH 5.0 (4.5-8.0) 11/05/18 14:20 Ur Specific [place] 1.025 (1.000-1.035) 11/05/18 14:20 Urine Protein Trace (Negative) H 11/05/18 14:20 Urine Glucose (UA) Negative g/dL (Negative) 11/05/18 14:20 Urine Ketones Negative (NEGATIVE) 11/05/18 14:20 Urine Occult Blood Negative (Negative) 11/05/18 14:20 Urine Nitrate Negative (Negative) 11/05/18 14:20 Urine Bilirubin Negative (NEGATIVE) 11/05/18 14:20 Urine Urobilinogen 0.2 E.U./dL (0.2) 11/05/18 14:20 Ur Leukocyte Esterase Trace (NEGATIVE) H 11/05/18 14:20 Urine RBC 0-1/hpf (0-5/HPF) 11/05/18 14:20 Urine WBC 5-10/hpf (0-5/HPF) H 11/05/18 14:20 Ur Squamous Epith Cells 1-5 /hpf (0-5/HPF) 11/05/18 14:20 Ur Renal Epithelial Cell 0-1/hpf (0-1/HPF) 11/05/18 14:20 Amorphous Sediment 3+ 11/05/18 14:20 Urine Bacteria Few (2-10) (None) H 11/05/18 14:20 Urine Mucus 1+ (Negative) H 11/05/18 14:20 Ur Culture Indicated? Specimen cultured 11/05/18 14:20 - Imaging Additional studies: Procedures Application of splint (12/16/11) Excision of Large Intestine, Via Natural or Artificial Opening Endoscopic, Diagnostic (08/04/18) Excision of Lumbar Vertebral Disc, Open Approach (12/05/16) Excision of Stomach, Via Natural or Artificial Opening Endoscopic, Diagnostic (08/04/18) Extraction of Back Subcutaneous Tissue and Fascia, Open Approach (01/05/17) Extraction of Iliac Bone Marrow, Percutaneous Approach (12/05/16) Fusion of 2 or more Lumbar Vertebral Joints with Autologous Tissue Substitute, Posterior Approach, Posterior Column, Open Approach (12/05/16) Fusion of 2 or more Lumbar Vertebral Joints with Interbody Fusion Device, Anterior Approach, Anterior Column, Open Approach (12/05/16) Incision of salivary gland or duct (02/19/10) Injection or infusion of other therapeutic or prophylactic substance (04/07/12) Open reduction of fracture with internal fixation, tibia and fibula (12/05/12) Other nonoperative respiratory measurements (04/07/12) Assessment and Plan (1) Anemia Current visit: No Status: Acute 73-year-old woman who has had intermittent anemia. Last year, she was clearly iron deficient in improved with IV iron. Currently, her ferritin level has been normal. Following her hospitalization in the spring, her red cell count had been improving and normalized in September. Since her hospital stay here, it has diminished somewhat. She has not been aware of any bleeding. It is possible that this may represent some degree of hemodilution with IV fluids. There may be some subcutaneous bleeding due to her recent fracture. She is not really symptomatic from her anemia currently. I think it makes sense to recheck iron levels. Also check a reticulocyte count. I expect that her red cell count will improve after her hospital discharge. I think it makes sense for her to follow up with me and about 4-6 weeks. In the meantime, I think a multivitamin may be helpful especially if she has not been eating well.
[2018-11-06 17:45] LABS: HEMOLYSIS < 15 (0-50); Iron 22 ug/dL (37-170)
[2018-11-06 17:55] LABS: Percent Iron Saturation 9 % (15-50); Total Iron Binding Capacity 232 ug/dL (265-497); Transferrin 170 mg/dL (206-381)
[2018-11-06] MEDS: TEMAZEPAM 15 MG CAPSULE 30 MG PO (20:34)
[2018-11-07 04:24] VITALS: BP 116/60; PULSE 77; RESP 18; TEMP 36.7; O2SAT 100
[2018-11-07 05:11] LABS: Add Manual Diff / Slide Review NO; Basophils Absolute Auto 0 /uL (0-100); Basophils Percent Auto 0.7 % (0-2); Eosinophils Absolute Auto 400 /uL (0-450); Eosinophils Percent Auto 5.7 % (2-4); Hematocrit 25.5 % (36-46); Hemoglobin 8.3 g/dL (12.0-16.0); Lymphocytes Absolute Auto 2300 /uL (1100-4500); Mean Corpuscular HGB Conc 32.4 % (30-36); Mean Corpuscular Volume 95.7 fL (80-100); Monocytes Absolute Auto 500 /uL (0-900); Monocytes Percent Auto 7.3 % (3-14); Neutrophils Absolute Auto 3500 /uL (1500-7000); Neutrophils Percent Auto 52.3 % (50-75); Platelet Count 229 X10^3/uL (150-400); Red Blood Cell Count 2.67 X10^6/uL (4.0-5.2); Red Cell Distribution Width 17.6 % (11.6-14.8); White Blood Cell Count 6.7 X10^3/uL (4.5-11.0)
[2018-11-07 05:17] LABS: BUN Creatinine Ratio 31.4 (6-22); Blood Urea Nitrogen 22 mg/dL (7-17); Calcium 8.3 mg/dL (8.4-10.2); Carbon Dioxide 20 mmol/L (22-32); Chloride 118 mmol/L (98-107); Estimated Glomerular Filt Rate > 60.0 mL/min (>60); Glucose 67 mg/dL (80-110); HEMOLYSIS < 15 (0-50); Potassium 4.8 mmol/L (3.4-5.1); Sodium 141 mmol/L (137-145)
[2018-11-07 05:43] LABS: Reticulocyte Count, Percent 1.4 % (1.06-2.63)
[2018-11-07] MEDS: HYDROCODONE/ACET 5/325 TABLET 2 TAB PO ×2 (06:16→13:07)
[2018-11-07] MEDS: LEVOTHYROXINE 75 MCG TABLET PO (06:18)
[2018-11-07] MEDS: LEVOTHYROXINE 100 MCG TABLET PO (06:18)
[2018-11-07 08:00] VITALS: BP 97/58; PULSE 77; RESP 20; TEMP 37; O2SAT 97
[2018-11-07] MEDS: MIDODRINE HCL 5 MG TABLET 10 MG PO (09:16)
[2018-11-07] MEDS: LOVASTATIN 10 MG TABLET 5 MG PO (09:16)
[2018-11-07] MEDS: buPROPion SR 150 MG TAB PO (09:16)
[2018-11-07] MEDS: ASPIRIN EC 81 MG TABLET PO (09:16)
[2018-11-07] MEDS: ENOXAPARIN 40 MG/0.4 ML SYRINGE SUBCUT (09:16)
[2018-11-07] MEDS: POTASSIUM CHLORIDE 10 MEQ TAB PO (09:17)
[2018-11-07] MEDS: FERROUS SULFATE 325 MG TABLET PO (09:17)
[2018-11-07] MEDS: CARBIDOPA-LEVODOPA 25/100 TABLET 1 EACH PO (09:17)
[2018-11-07] MEDS: GABAPENTIN 600 MG TABLET 1200 MG PO (09:17)
[2018-11-07] MEDS: SODIUM CHLORIDE 0.9% FLUSH 10 ML IV (09:18)
[2018-11-07] MEDS: CITALOPRAM 20 MG TABLET 40 MG PO (09:18)
[2018-11-07] MEDS: MULTIVITAMIN 1 TABLET 1 TAB PO (09:18)
[2018-11-07] MEDS: BUTALB/APAP/CAFFEINE 50/325/40 TABLET 2 EACH PO (09:19)
--- NOTE | 2018-11-07 09:43 | PM.DS.1 ---
History of Present Illness Date Patient Seen: 11/07/18 Time Patient Seen: 08:44 Chief complaint: multiple falls Narrative: From H&P 11/05/[address] Zurita Patient is admitted through the ER because of weakness. Patient has been seen in the emergency room multiple times for weakness and general malaise over the past several weeks. Recently she has noticed increasing weakness. Apparently last night she had very difficult time moving difficult time walking. Resulting in falling she fell couple times she ended up wrenching her neck and injuring her knee resulting in a fracture of the proximal fever today. Patient is admitted because unable to be unable to ambulate generalized weakness frequent falling. Patient's primary caregiver is her . Patient has had a relatively unremarkable last several months. Approximately 45 lb weight loss a need intentional. Severe abdominal pain for no obvious etiology patient has been evaluated here as well as Gastroenterology at her [facility] with endoscopy colonoscopy CT HIDA scans all of which have been unremarkable. Recently admitted here for a questionable GI bleed endoscopy was negative at that time. She continues to have problems with weight loss poor appetite nausea unable to get adequate calories in and this has been ongoing problem for several months with no insight. Home care has been initially through [facility] as well as . [facility] dismiss patient from their services because of noncompliance. Patient has a history of non-insulin diabetes had been on medications has been discontinued does all the weight loss her blood sugars have remained normal. Patient is chronic back pain for which she is on hydrocodone 08/3251 tablets every 6 hours this been ongoing issue and there has been times where perhaps she has requested a bigger dose. She has chronic back pain for which she has seen Dr. Wong for injections and this is pending. Apparently had some help from this in the past. Patient has admitted in the past she has having problems with depression and at times actually was severely depressed per her discussion. Has been on antidepressants in the past unclear whether not this made a difference. Patient has been evaluated in the home by social media marketing specialist by dietary recommendations and by home health etc. None of this seemed to have had much effect on her status. Patient was here on hospital for urinary tract infection and then transferred to penitentiary[facility]assisted living and did well there gained weight good appetite decreased pain participate in therapy actually survived and and thrived there and got to the point where she felt so good she she simply signed herself out. Only to return home and began to deteriorate and this has been a pattern. She does well in the hospital does not do so well when she goes home unclear exactly the dynamics as stool how or why this occurred. Patient has been referred to [facility] behavior Health/psychiatry. Has appointment next month with psychiatrist. Patient also has a history of apparent iron deficiency anemia. Is seeing Dr. Clinton her oncologist for her anemia currently being evaluated. The patient has a history of orthostatic hypotension has been placed on midodrine per the consultants it [facility]. Patient with history of restless legs taking Sinemet and Mirapex for same. History of peripheral neuropathy taking gabapentin for same Discharge Providers Date of admission: 11/05/18 12:00 Discharge Date: 11/07/18 Primary care physician: Corby Zurita MD Consults: 11/05/18 12:28 Consult to Dietitian, Adult Routine Comment: Reason For Exam: wt loss Consult to Discharge Planning Routine Comment: Consult to Occupational Therapy Evaluate & Treat Comment: Physician Instructions: Evaluate and treat Consult to Physical Therapy Evaluate & Treat Comment: Physician Instructions: Evaluate and Treat Consult to Physician Routine Comment: Consulting Provider: Brandon Monae Reason for consultation: depression Has provider been notified: No Consult to Private Chef Routine Comment: 11/05/18 13:14 Consult to Oncology Routine Comment: Consulting Provider: Dilan Clinton Reason for consultation: anemia Has provider been notified: Yes 11/05/18 13:15 Consult to Physician Routine Comment: Consulting Provider: Brandon Monae Reason for consultation: depression Has provider been notified: Yes 11/05/18 15:04 Consult to Orthopedic Surgery Routine Comment: Consulting Provider: Tahir Brady Reason for consultation: fibula fx Discharge provider: Shannan Vazquez DO Summary Discharge Diagnosis: Mechanical ground level fall resulting in Proximal fibula fracture Weight loss Anemia iron deficiency and chronic disease Depression Generalized weakness precipitating fall Diabetes mellitis Chronic back pain Orthostatic hypotension Restless legs Peripheral neuropathy Hospital Course: 1. Chronic issues of generalized weakness, nausea, weight loss, decreased appetite. Patient has had a thorough GI workup prior to this admission. She worked with physical therapy and was ambulatory with front wheeled walker at discharge. She was 1 person stand by assist and appropriate for discharge with ongoing PT through home health. She did not qualify for penitentiary discharge. 2. Chronic back pain. She received her home dose of narcotics and discharged with same. 3. Most recent generalized weakness especially lower extremity. Improved with physical therapy. 4. History of diabetes on no medications due to weight loss. 5. Depression is a big part of all this unclear exactly how much of is playing but it is a part. Dr. Monae, psychiatry, consulted and the patient appreciated this. It seemed to brighten her mood and on the day of discharge she appeared upbeat and positive. Question whether there may be a bipolar component of patient's depression. She desires a change to her citalopram but would defer that to the Dr. Zurita and Dr. Monae at follow up. 7. She has history of anemia. Iron panel is low but ferritin is normal. Chronic disease? Retic count is normal but is up from last month. Dilutional given poor appetitie and now post fluids? Will follow up with oncology. Repeat CBC next week. 8. Patient had wanted to talk about a feeding tube in the past but both she and her feel that with that is unnecessary at this time yet to be determined. Dr. Zurita to have ongoing discussion. 9. Urine culture growing 70-80K Klebsiella. No current infection signs. No antibiotics indicated. 10. Fracture of the proximal fibula. Knee immobilizer. weight bear as tolerated. Continue with PT. DVT prophylaxis: enoxaparin Code status: full code Patient discharged home with home health and follow with Dr. Zurita, Dr. Clinton and Dr. Monae. Status at Discharge Functional status at discharge: uses cane/walker Overall status at discharge: patient is progressing back to baseline Time Spent with Patient Greater than 30 minutes Exam Vital Signs (past 8 hours): - 11/07/18 04:24 Temperature 98.0 F Pulse Rate 77 Respiratory Rate 18 Blood Pressure 116/60 Pulse Oximetry 100 Oxygen Delivery Method Room Air Oxygen Flow Rate 0 Narrative Exam Narrative: General: Well-developed, well-nourished, female, no acute distress. Heart: Regular rate and rhythm, no murmurs appreciated Lungs: Clear to auscultation bilaterally, no wheezes, rales or rhonchi Extremities: Warm and well perfused, no edema Objective Labs Result Diagrams: 11/07/18 04:30 11/07/18 04:30 Labs: Laboratory Results - last 24 hr 11/06/18 11/06/18 11/07/18 05:00 17:24 04:30 WBC RBC Hgb Hct MCV MCH MCHC RDW Plt Count Neut % (Auto) Lymph % (Auto) [place] % (Auto) Eos % (Auto) Baso % (Auto) Neut # (Auto) Lymph # (Auto) [place] # (Auto) Eos # (Auto) Baso # (Auto) Percent Retic 1.4 Sodium Potassium Chloride Carbon Dioxide BUN Creatinine Estimated GFR BUN/Creatinine Ratio Glucose Hemoglobin A1c 5.6 Calcium Iron 22 L TIBC 232 L % Saturation 9 L Transferrin 170 L Ferritin 11/07/18 11/07/18 11/07/18 04:30 04:30 04:30 WBC 6.7 RBC 2.67 L Hgb 8.3 L Hct 25.5 L MCV 95.7 MCH 31.0 MCHC 32.4 RDW 17.6 H Plt Count 229 Neut % (Auto) 52.3 Lymph % (Auto) 34.0 [place] % (Auto) 7.3 Eos % (Auto) 5.7 H Baso % (Auto) 0.7 Neut # (Auto) 3500 Lymph # (Auto) 2300 [place] # (Auto) 500 Eos # (Auto) 400 Baso # (Auto) 0 Percent Retic Sodium 141 Potassium 4.8 Chloride 118 H Carbon Dioxide 20 L BUN 22 H Creatinine 0.70 Estimated GFR > 60.0 BUN/Creatinine Ratio 31.4 H Glucose 67 L Hemoglobin A1c Calcium 8.3 L Iron TIBC % Saturation Transferrin Ferritin 107.0 Discharge Plan Discharge Plan Patient Disposition: Home Health Service Discharge comment: Patient's perscriptions for tamezepam and hydrocodone are at the front desk supervisor at [facility]. Discharge Med Rec/Prescriptions Prescriptions: New multivitamin [Tab-A-Carrie] Tablet 1 tab PO DAILY Qty: 30 RF: 0 Continued levothyroxine [Synthroid] 175 mcg tablet 175 mcg PO DAILY Qty: 90 RF: 1 blood-glucose meter [Blood Glucose Monitoring] kit .ROUTE .MEDSUPPLY Qty: 1 RF: 0 citalopram 20 mg tablet 40 mg PO DAILY Qty: 60 RF: 5 ndgtfmocie-wcbfeblfibgkj-kdpy 50-325-40 mg tablet See Rx Instructions .ROUTE .COMPLEX PRN (Reason: Headache) Qty: 60 RF: 0 carbidopa-levodopa 25-100 mg tablet 1 tab PO TID Qty: 90 RF: 1 gabapentin 600 mg tablet 600 - 1,200 mg PO TID Qty: 90 RF: 0 Blood Glucose Test strip .ROUTE .MEDSUPPLY Qty: 100 RF: 3 lancets misc .ROUTE .MEDSUPPLY Qty: 100 RF: 3 temazepam 15 mg capsule 15 mg PO BEDTIME PRN (Reason: Sleep) Qty: 20 RF: 0 Walker: Four Wheel 1 u miscellaneous DIRECTED RF: 0 Diabetic Shoes 1 pkg miscellaneous DIRECTED RF: 0 lovastatin 10 mg tablet 5 mg PO Q OTHER DAY RF: 0 aspirin 81 mg Tablet,Delayed Release (Dr/Ec) 81 mg PO DAILY RF: 0 potassium chloride [Klor-Con M10] 10 mEq Tablet,Er Particles/Crystals 10 meq PO DAILYCC Qty: 30 RF: 0 bupropion HCl 150 mg tablet sustained-release 12 hr 150 mg PO BID RF: 0 ferrous sulfate [FeroSul] 325 mg (65 mg iron) Tablet 1 tab PO BID RF: 0 ondansetron 4 mg tablet,disintegrating 4 mg PO Q6H PRN (Reason: nausea and vomiting) Qty: 30 RF: 0 midodrine 10 mg tablet 10 mg PO TID RF: 0 hydrocodone-acetaminophen 5-325 mg tablet 1 - 2 tab PO QID PRN (Reason: pain) RF: 0 Other Ambulatory Orders: Complete Blood Count AUTO DIFF (Routine) Timeframe: 3 Days Location: Laboratory Ordered By: Shannan Vazquez Follow up/Referrals: Corby Zurita MD [Primary Care Provider] - 1 Week Brandon Monae MD [Physician] - 1 Week Provider Discharge Instructions Diet: Diet as Tolerated Visit Report/Discharge Packet Instructions: DI for Anemia of Chronic Disease, How to Prevent Falls, Hydrocodone/Acetaminophen (By mouth) Discharge Data Primary Care Provider: Corby Zurita Attending Provider: Corby Zurita Admit Date/Time: 11/05/18 12:00 Discharges patient from system. Discharge Date/Time: 11/07/18 13:20 Quality VTE Deep Vein Thrombosis/Pulmonary Embolism Present on Admission: No
[2018-11-07 11:45] VITALS: BP 114/66; PULSE 87; RESP 16; TEMP 36.6; O2SAT 100
--- NOTE | 2018-11-07 13:12 | PC.NURSE ---
Patient ready for discharge to home with . Patient has no further questions or concerns. Her will stop by to fruit or nut picker her hard copy of scripts at [facility] office. IV removed intact. patient states she will ensure follow up with lab draw prior to appt. with Dr. Nieves and Dr. Monae. Patient escorted out via wheelchair with all belongings.
--- NOTE | 2018-11-07 14:01 | PT.IPTN ---
Current Diagnoses Anemia, unspecified (11/05/18) Major depressive disorder, single episode, unspecified (11/05/18) Weakness (11/05/18) Anorexia (11/05/18) Physical Therapy Treatment Note M2 PT-IP Current Condition Start: 11/05/18 17:46 Freq: NEEDED Status: Discharge Protocol: Document 11/05/18 15:39 AB (Rec: 11/05/18 18:02 AB [id number]) Physical Therapy Current Condition Current Condition Evaluation Date 11/05/18 Treatment Diagnosis h/o falls; L fibular head/neck fx; difficulty in walking Onset Date 11/05/18 Precautions Brace L knee immobilizer Weight Bearing Status Weight Bearing Status Weight Bear as Tolerated Allowed Weight Bearing Amount (enter % WBAT per Dr. Zurita or #) (%) M3 PT-IP Subjective Start: 11/05/18 17:46 Freq: NEEDED Status: Discharge Protocol: Document 11/07/18 13:55 SA (Rec: 11/07/18 14:00 SA [id number]) Subjective Physical Therapy Visit Type Type Treatment Note Visit Start Time 11:32 Notes Pt up in chair. Number of HEALTH THERAPIST Visits 2 Physical Therapy Visit Comments Patient Comments PT reports feeling a little light headed with walking. BP 100/60, declined PT until later. Therapy Pain Assessment Pain When Pain Assessed During Mobility Pain Present Pain Present Pain Reported Location Left tib /fib Intensity 2 Pain Management Techniques Re-positioning Timing of Activity with Medications M4 PT-IP Mobility and Gait Start: 11/05/18 17:46 Freq: NEEDED Status: Discharge Protocol: Document 11/06/18 15:40 GGD (Rec: 11/06/18 16:29 GGD [id number]) PT-Bed Mobility Assessment Rolling Level of Assist Standby Assistance Supine to Sit Supine to Sit Standby Assistance Sit to Supine Sit to Supine Standby Assistance Scooting Scooting to Edge of Bed Standby Assistance Scooting Up and Down in Bed Standby Assistance PT-Transfer Assessment Sit to and From Stand Sit to and from Stand Contact Guard Assistance Equipment Transfer Assistive Device Gait Belt 4 Wheeled Walker Orthotic/Prosthetic Devices or Brace: Yes Transfers Transfer Destination Chair Toilet Transfer Ability Level of Assist Contact Guard Assistance 1 Person Assistance Gait Assessment Gait Gait Assistance Required: Standby Assistance Contact Guard Assist Distance (Feet) 130 Assistive Devices Assistive Device Gait Belt Front Wheeled Walker Orthotic/Prosthetic Devices or Brace: Yes Gait Deviations General Gait Pattern Antalgic Decreased Stride Length Decreased Feet Clearance Factors Limiting Gait Function Factors Limiting Gait Function Decreased Activity Tolerance Decreased Strength Limited Range of Motion Pain Poor Balance Poor Safety Awareness M5 PT-IP Objective Assessments Start: 11/05/18 17:46 Freq: NEEDED Status: Discharge Protocol: Document 11/05/18 15:39 AB (Rec: 11/05/18 18:02 AB [id number]) Orientation Orientation/Cognition Level of Alertness Alert Orientation Name Place Situation Language Function Ability No Deficits Noted Gross Range of Motion Lower Extremity ROM Assessment Left Impaired Impairments L knee immobilizer on Strength Lower Extremity Strength Assessment Bilaterally Impaired Comments Strength Comments RLE 4-/5 LLE 3+/5 Coordination Assessment Gross Coordination Gross Coordination WNL Sensation Assessment Sensation Gross Sensation Right LE Impaired Left LE Impaired Light Touch Impaired Proprioception (Position) Impaired Comments Sensation Comments pt has neuropathy on BLE Muscle Tone Muscle Tone WNL Yes M6 PT-IP Treatment Start: 11/05/18 17:46 Freq: NEEDED Status: Discharge Protocol: Document 11/06/18 15:40 GGD (Rec: 11/06/18 16:29 GGD [id number]) Physical Therapy Treatment Exercises Exercises Ankle Pumps Gluteal Sets Quad Sets Education Education Provided Safety M7 PT-IP Assessment and Plan Start: 11/05/18 17:46 Freq: NEEDED Status: Discharge Protocol: Document 11/06/18 15:40 GGD (Rec: 11/06/18 16:29 GGD [id number]) PT Summary Assessment and Plan Summary Assessment Summary Pt improving with mobility. She was able to progress gait. She was safe with 4WW. She did need cues for posture. Frequency of Treatment Frequency Of Treatment Twice a Day Treatment Plan Physical Therapy Treatment Plan Bed Mobility Training Transfer Training Gait Training Therapeutic Exercise Balance Retraining Discharge Planning Hot or Cold Pack Neuromuscular Re-ed Coordination Retraining Other Recommendations and Next Treatment ambulation, caregiver training Focus , stair training Recommendations To Nursing Amount of Assist Needed 1 Person Assist Discharge Recommendations PT Discharge Recommendations Home with Assistance Home Health
--- NOTE | 2018-11-08 14:54 | CM.DPNOTE ---
Late Entry: Pt DC by Dr Vazquez yesterday, F2F signed. Claritza w/ [facility] was contacted yesterday and able to accept pt on HH sevice upon DC. Claritza assisted both this [employer] and [facility] Kait in retrieving F2F and clinical docs to start pt's HH service w/in 24-48 hrs. Pt agreeable to this plan; home w/assist from spouse/family and HH through [facility]. Pt remains observation status. JW
== END 2018-11-07 13:20 | disposition home health service (06) ==
LOC: ED 11:47 → AC 12:01
PROVIDERS: Admitting Provider Family Medicine; Emergency Provider Emergency Medicine; PCP Family Medicine; Visit Provider Family Medicine
DX: S82.832A Other fracture of upper and lower end of left fibula, initial encounter for closed fracture (principal); R53.1 Weakness; W19.XXXA Unspecified fall, initial encounter; R63.0 Anorexia; D64.9 Anemia, unspecified; Z91.81 History of falling; G89.29 Other chronic pain; M54.9 Dorsalgia, unspecified; F32.9 Major depressive disorder, single episode, unspecified; D50.9 Iron deficiency anemia, unspecified; I95.1 Orthostatic hypotension; G25.81 Restless legs syndrome; G62.9 Polyneuropathy, unspecified
CPT/HCPCS: 36415; 36591; 70450; 72125; 73030; 73590; 80048; 80053; 81001; 82728; 83036; 83540; 83550; 83690; 85025; 85045; 85610; 85730; 87077; 87086; 87186; 90792; 93005; 96361; 96372; 96374; 96375; 96376; 97116; 97162; 97165; 97530; 99213; 99217; 99219; 99225; 99283; 99285; G0378; J1170; J1650; J2405

== ENCOUNTER → 2018-11-14 12:33 | Outpatient (CLI) | payer MEDICARE, OTHER, SELFPAY ==
[2018-11-05 12:36] VITALS: BMI 24.2
[2018-11-14 12:39] LABS: Bacteria Urine None Seen
[2018-11-14 13:03] LABS: Add Manual Diff / Slide Review NO; Basophils Absolute Auto 0 /uL (0-100); Basophils Percent Auto 0.4 % (0-2); Eosinophils Absolute Auto 300 /uL (0-450); Eosinophils Percent Auto 5.1 % (2-4); Hemoglobin 9.6 g/dL (12.0-16.0); Lymphocytes Absolute Auto 1600 /uL (1100-4500); Lymphocytes Percent Auto 23.8 % (25-40); Mean Corpuscular Hemoglobin 31.3 PG (26-34); Mean Corpuscular Volume 97.7 fL (80-100); Monocytes Absolute Auto 500 /uL (0-900); Monocytes Percent Auto 6.7 % (3-14); Neutrophils Absolute Auto 4300 /uL (1500-7000); Platelet Count 260 X10^3/uL (150-400); Red Blood Cell Count 3.07 X10^6/uL (4.0-5.2); Red Cell Distribution Width 17.9 % (11.6-14.8); White Blood Cell Count 6.8 X10^3/uL (4.5-11.0)
[2018-11-14 13:14] LABS: Bilirubin Urine UA NEGATIVE (NEGATIVE); Color Urine UA YELLOW; Glucose Urine UA NEGATIVE (Negative); Ketones Urine UA 1+ (NEGATIVE); Leukocyte Esterase Urine UA 2+ (NEGATIVE); Nitrite Urine UA NEGATIVE (Negative); Occult Blood Urine UA 3+ (Negative); Protein Urine UA 2+ (Negative); Specific Gravity Urine UA >=1.030 (1.000-1.035); Urobilinogen Urine UA 0.2 E.U./dL (0.2)
[2018-11-14 13:16] LABS: Appearance Urine UA TURBID
[2018-11-14 13:18] LABS: BUN Creatinine Ratio 21.4 (6-22); Blood Urea Nitrogen 15 mg/dL (7-17); Calcium 8.8 mg/dL (8.4-10.2); Carbon Dioxide 22 mmol/L (22-32); Chloride 116 mmol/L (98-107); Estimated Glomerular Filt Rate > 60.0 mL/min (>60); Glucose 129 mg/dL (80-110); HEMOLYSIS < 15 (0-50); Sodium 142 mmol/L (137-145)
[2018-11-14 13:19] LABS: Potassium 5.7 mmol/L (3.4-5.1)
[2018-11-14 13:23] LABS: Culture Indicated Urine Specimen Cultured; RBC Urine 1-5/HPF (0-5/HPF); Squamous Epithelial Cell Urine 1-5 /HPF (0-5/HPF); WBC Urine 30-100/HPF (0-5/HPF)
== END ==
PROVIDERS: Family Medicine; Internal Medicine; PCP Family Medicine; Visit Provider Family Medicine
DX: R39.9 Unspecified symptoms and signs involving the genitourinary system (principal); E87.6 Hypokalemia; D64.9 Anemia, unspecified; N39.0 Urinary tract infection, site not specified
CPT/HCPCS: 36415; 80048; 81001; 85025; 87086

== ENCOUNTER 2018-12-23 14:42 | Emergency (ER) | payer MEDICARE, OTHER, SELFPAY ==
[2018-12-23 15:00] VITALS: BP 144/66; PULSE 68; RESP 11; O2SAT 98
[2018-12-23 15:07] VITALS: BP 144/71; PULSE 74; RESP 13; TEMP 36.2; O2SAT 99
--- NOTE | 2018-12-23 15:08 | DI.RAD.S_ITS ---
PROCEDURE: XR CHEST 1V INDICATIONS: chest, neck/shoulder pain with elevated BP TECHNIQUE: One view of the chest was acquired. COMPARISON: [facility], CR, XR CHEST 2V, 10/20/2018, 11:31. FINDINGS: Surgical changes and devices: Clips are present overlying the upper abdomen. Partially visualized thoracolumbar fixation radha. Lungs and pleura: Lungs are clear. No pleural effusions or pneumothorax. Mediastinum: Mediastinal contours appear normal. Heart size is normal. Bones and chest wall: No suspicious bony lesions. Overlying soft tissues appear unremarkable. IMPRESSION: No acute pulmonary process. Dictated by: Yu Gimenez M.D. on 12/23/2018 at 15:38 Approved by: Yu Gimenez M.D. on 12/23/2018 at 15:38
[2018-12-23 15:30] VITALS: BP 131/74; PULSE 68; RESP 19; O2SAT 99
[2018-12-23 15:30] LABS: Add Manual Diff / Slide Review NO; Basophils Absolute Auto 100 /uL (0-100); Eosinophils Absolute Auto 500 /uL (0-450); Eosinophils Percent Auto 7.7 % (2-4); Hematocrit 36.8 % (36-46); Lymphocytes Absolute Auto 2300 /uL (1100-4500); Lymphocytes Percent Auto 38.3 % (25-40); Mean Corpuscular HGB Conc 32.6 % (30-36); Mean Corpuscular Hemoglobin 32.2 PG (26-34); Mean Corpuscular Volume 98.6 fL (80-100); Monocytes Absolute Auto 400 /uL (0-900); Monocytes Percent Auto 6.9 % (3-14); Neutrophils Absolute Auto 2800 /uL (1500-7000); Neutrophils Percent Auto 46.1 % (50-75); Platelet Count 224 X10^3/uL (150-400); Red Blood Cell Count 3.73 X10^6/uL (4.0-5.2); Red Cell Distribution Width 14.8 % (11.6-14.8)
[2018-12-23 15:38] LABS: Prothrombin Time 11.5 SECONDS (10.1-12.7)
[2018-12-23 15:41] LABS: PTT Partial Thromboplastin Tim 35 SECONDS (26.4-36.2)
[2018-12-23 15:43] LABS: Albumin 3.5 g/dL (3.5-5.0); Albumin Globulin Ratio 1.3 (1.0-2.8); Alkaline Phosphatase 53 U/L (38-126); Aspartate Aminotransferase 34 IU/L (14-36); BUN Creatinine Ratio 21.1 (6-22); Bilirubin Total 0.2 mg/dL (0.2-1.3); Blood Urea Nitrogen 19 mg/dL (7-17); Carbon Dioxide 25 mmol/L (22-32); Chloride 108 mmol/L (98-107); Creatine Kinase < 20 U/L (30-135); Estimated Glomerular Filt Rate > 60.0 mL/min (>60); Globulin 2.8 g/dL (1.7-4.1); Glucose 144 mg/dL (80-110); HEMOLYSIS < 15 (0-50); Potassium 4.6 mmol/L (3.4-5.1); Sodium 139 mmol/L (137-145); Total Protein 6.3 g/dL (6.3-8.2)
[2018-12-23 15:46] LABS: Alanine Aminotransferase < 6 IU/L (9-52)
--- NOTE | 2018-12-23 15:53 | DI.CT.S_ITS ---
PROCEDURE: CT HEAD/BRAIN WO CON INDICATIONS: vision change and weakness to R arm last night till early am TECHNIQUE: Noncontrast 4.5 mm thick angled axial sections acquired from the foramen magnum to the vertex, with coronal and sagittal reformats. For radiation dose reduction, the following was used: automated exposure control, adjustment of mA and/or kV according to patient size. COMPARISON: None. FINDINGS: Image quality: Excellent. CSF spaces: Basal cisterns are patent. No extra-axial fluid collections. The ventricles are symmetric in size and shape. Brain: No intracranial bleeds or masses. There is cerebral volume loss for age, with resultant ventricular and sulcal prominence. There are periventricular and deep white matter chronic small vessel ischemic changes. There is intracranial internal carotid artery atherosclerosis. Skull and face: Calvarium and visualized facial bones appear intact, without suspicious lesions. Sinuses: Visualized sinuses and mastoids are clear. IMPRESSION: No acute intracranial disease process. Dictated by: Tasha Calvillo MD, PhD on 12/23/2018 at 16:26 Approved by: Tasha Calvillo MD, PhD on 12/23/2018 at 16:28
[2018-12-23 15:54] LABS: Troponin I < 0.012 ng/mL (0.01-0.034)
[2018-12-23] MEDS: ASPIRIN 325 MG TABLET PO (17:04)
[2018-12-23 17:07] VITALS: BP 140/66; PULSE 71; RESP 20; O2SAT 100
[2018-12-23 17:08] VITALS: BP 140/66; PULSE 68; RESP 16; O2SAT 97
--- NOTE | 2018-12-23 23:59 | ED_ITS ---
HPI - General Adult <CLAIRE Bailey - Last Filed: 12/24/18 00:43> General Chief complaint: Hypertension Stated complaint: BP 182/96 Time Seen by Provider: 12/23/18 14:45 Source: patient Mode of arrival: ambulatory Limitations: no limitations History of Present Illness HPI narrative: This is a 73-year-old female, nonsmoker, who presents with family with chief complain of elevated blood pressure with symptoms such as chest discomfort, neck and shoulder discomfort, headache, dizziness today. Noticed elevated blood pressure by home health care provider and it was 182/92 at home. Patient also states she had blurry/decreased vision with right arm heaviness which started at 4:00 p.m. and lasted to for a.m. this morning. She denies speech difficulty, facial drips, balance problem with this and now she feels her normal self. She states uses a walker for ambulation. She takes baby aspirin daily and not on other anticoagulants at this time. Patient reports she usually has low blood pressure and takes Midodrine 10 mg 3 times a day for this. She has not had taken this since she noticed elevated blood pressure. Related Data Home Medications Medication Instructions Recorded Confirmed Diabetic Shoes 1 pkg MISCELLANEOUS DIRECTED 01/14/18 12/23/18 Walker: Four Wheel 1 u MISCELLANEOUS DIRECTED 01/14/18 12/23/18 aspirin 81 mg PO DAILY 08/28/18 12/23/18 msygxfud-atn-lahzhqf gluconate 1 dose PO DAILY 12/23/18 12/23/18 [Centrum] Previous Rx's Medication Instructions Recorded levothyroxine 175 mcg tablet 175 mcg PO DAILY #90 tab 07/22/18 blood-glucose meter #1 each 08/27/18 potassium chloride [Klor-Con M10] 10 meq PO DAILYCC #30 tab 09/01/18 citalopram 20 mg tablet 40 mg PO DAILY #60 tab 09/27/18 blood sugar diagnostic #100 each 10/22/18 gabapentin 600 mg tablet 600 - 1,200 mg PO TID #90 tab 10/22/18 lancets #100 each 10/22/18 bupropion HCl 150 mg tablet,12 hr 150 mg PO BID #60 each 12/12/18 sustained-release carbidopa 25 mg-levodopa 100 mg 1 tab PO TID #90 tab 12/12/18 tablet ferrous sulfate 325 mg (65 mg 325 mg PO BID #60 tab 12/12/18 iron) tablet lovastatin 10 mg tablet 5 mg PO Q OTHER DAY #30 tab 12/12/18 temazepam 15 mg capsule 15 mg PO BEDTIME PRN #20 cap 12/12/18 midodrine 10 mg tablet 10 mg PO TID #90 tab 12/16/18 tafjyjtjur-ahcfpgwzzqxzt-ttxwwnrl See Rx Instructions .ROUTE 12/18/18 50 mg-325 mg-40 mg tablet .COMPLEX PRN #10 tab hydrocodone 5 mg-acetaminophen 325 1 - 2 tab PO QID PRN #112 tab 12/23/18 mg tablet Allergies Allergy/AdvReac Type Severity Reaction Status Date / Time amoxicillin [From AUGMENTIN] Allergy Mild RASH Verified 11/14/18 13:54 clavulanic acid Allergy Mild RASH Verified 11/14/18 13:54 [From AUGMENTIN] metformin [METFORMIN] AdvReac Severe SWELLING Verified 11/14/18 13:54 Review of Systems <CLAIRE Bailey - Last Filed: 12/24/18 00:43> Review of Systems General: Denies fever, chills, fatigue, malaise, sweats. HEENT: Denies sinus pain, ear pain, sore throat, difficulty swallowing, dizziness. Respiratory: Denies dyspnea, cough, wheezing, hemoptysis, sputum. Cardiovascular: See HPI Gastrointestinal: Denies nausea, vomiting, abdominal pain, diarrhea, constipation, melena. : Denies dysuria, frequency, incontinence, hematuria, urinary retention. Musculoskeletal: See HPI Skin: Denies rash, skin lesions, or other. Neurologic: See HPI Psychiatric: No concerning psychosocial issues. 12-point review of systems is negative except for those stated above. [facility] <CLAIRE Bailey - Last Filed: 12/24/18 00:43> Medical History Hyperthyroidism (Chronic ~2004) Gastric ulcer (Chronic ~1991) History of irregular menstrual cycles (Chronic ~1989) Ovarian cyst (Chronic ~1999) Painful menstrual periods (Chronic ~1978) Anemia (Chronic ~2004) Chicken pox (Resolved) Measles (Resolved) Mumps (Resolved) Chronic back pain (Chronic ~2009) Foot pain (Chronic ~2010) Fractures (Chronic ~2011) Neuropathy (Chronic ~2008) Headache (Chronic ~1989) Migraines (Chronic ~1989) Restless leg syndrome (Chronic ~1989) Lupus (Chronic ~1999) Arthritis (Chronic) Surgical History H/O hernia repair (Acute) S/P foot surgery, right (Acute) Gastric bypass status for obesity (Acute) Hx of resection of stomach (Resolved) Family History Grandfather No problems noted. Grandmother No problems noted. Mother No problems noted. Son Diabetes mellitus Social History marital status: household members: spouse and children Smoking Status: Never smoker alcohol intake: never substance use type: does not use Family History Grandfather No problems noted. Grandmother No problems noted. Mother No problems noted. Son Diabetes mellitus Social History marital status: household members: spouse and children Smoking Status: Never smoker alcohol intake: never substance use type: does not use Exam <CLAIRE Bailey - Last Filed: 12/24/18 00:43> Narrative Exam Narrative: GEN: Alert, oriented x 3, well appearing and nourished, and in no acute distress. Head: Normal cephalic, atraumatic. No scalp or temporal tenderness, palpable mass or rash. EYES: Pupils are equal, round, and reactive to light and accommodation. Extraocular muscles are intact bilaterally. There is no subconjunctival hemorrhage, exudate and sclera non-icteric. ENT: Bilateral auditory canals and tympanic membranes. Hearing grossly intact. Nose without bleeding, purulent discharge. Mucous membrane moist, no mucosal lesion. Throat without erythema, tonsillar hypertrophy or exudate. Uvula in midline, airway patent. Neck: Trachea in midline. No JVD, non-tender without lymphadenopathy. No masses or thyroid megaly. Supple, non-tender and meningeal signs. CARDIAC: Normal regular rate and rhythm without murmurs, gallops, or rubs. No chest wall tenderness. No peripheral edema, cyanosis or pallor. Capillary refill is less than 2 seconds. No carotid bruits. RESPIRATORY: Lungs are cleat to auscultate bilaterally. No cough, wheezes, rales, or rhonchi. No stridor, respiratory distress, increase work of breathing, or accessary muscle used. ABD: Abdomen soft, nontender and non-distended. No guarding or rebound tenderness to palpate. Bowel sounds are normal in all 4 quadrants. There is no palpable masses or organomegaly. EXT: Full painless ROM of all extremities with no loss of sensation, strength, effusion or edema. SKIN: Warm, dry, normal color for patient. No erythema, lesions or rash. BACK: Nontender without deformity or crepitance. No flank tenderness. NEUROLOGICAL: Alert and oriented to place, time and person. No facial droops, dysphasia. CN II-XII intact. Strength and sensation symmetric and intact throughout. Reflexes 2+ throughout. Cerebellar testing normal. PSYCHIATRIC: Good judgement and reason, without hallucinations, abnormal affect or abnormal behaviors during the examination. Patient is not suicidal. Initial Vital Signs Initial Vital Signs: Vital Signs Pulse Rate 68 12/23/18 15:00 Respiratory Rate 11 L 12/23/18 15:00 Blood Pressure 144/66 H 12/23/18 15:00 Pulse Oximetry 98 12/23/18 15:00 <Raisa Kee MD - Last Filed: 12/26/18 07:11> Initial Vital Signs Initial Vital Signs: Vital Signs Pulse Rate 68 12/23/18 15:00 Respiratory Rate 11 L 12/23/18 15:00 Blood Pressure 144/66 H 12/23/18 15:00 Pulse Oximetry 98 12/23/18 15:00 Scores <CLAIRE Bailey - Last Filed: 12/24/18 00:43> CHADS-VASc Congestive heart failure: no Hypertension: no Age 75 years or older: no Diabetes mellitus: yes Stroke, TIA, or TE: no Vascular disease: yes Age 65 to 74 years: yes Sex category (female): Female CHADS-VASc Score: 4 GCS Warthen coma scale eye opening: Spontaneous Warthen coma scale verbal response: Orientated Rosalinda coma scale motor response: Obey commands Rosalinda coma scale total score: 15 NIH Stroke Scale Level of Conciousness: Alert, keenly responsive Ask month/age: Answers both questions correctly. Open/close eyes, close hand: Performs both tasks correctly Best gaze horizontal: Normal Visual ward: No visual loss Facial palsy: Normal symetrical movement Left arm drift: No drift for full 10 sec Right arm drift: No drift for full 10 sec Left leg drift: No drift for full 10 sec Right leg drift: No drift for full 10 sec Limb ataxia: Absent Sensory on face/arms/legs: Normal, no sensory loss Best language: No aphasia, normal Dysarthria: Normal Extinction or inattention: No abnormality Total NIH Stroke scale score: 0 Course <CLAIRE Bailey - Last Filed: 12/24/18 00:43> Orders Ordered: Discontinued Medications Aspirin (Aspirin) 325 mg PO NOW ONE Stop: 12/23/18 16:41 Last Admin: 12/23/18 17:04 Dose: 325 mg Documented by: RSMARTA Vital Signs - 8 hr 12/23/18 17:07 12/23/18 17:08 Pulse Rate 71 68 Respiratory Rate 20 16 Blood Pressure 140/66 Blood Pressure [Left Arm] 140/66 Pulse Oximetry 100 97 <Raisa Kee MD - Last Filed: 12/26/18 07:11> Orders Ordered: Discontinued Medications Aspirin (Aspirin) 325 mg PO NOW ONE Stop: 12/23/18 16:41 Last Admin: 12/23/18 17:04 Dose: 325 mg Documented by: RSTONKristen Vital Signs - 8 hr 12/23/18 17:07 12/23/18 17:08 Pulse Rate 71 68 Respiratory Rate 20 16 Blood Pressure 140/66 Blood Pressure [Left Arm] 140/66 Pulse Oximetry 100 97 Medical Decision Making <CLAIRE Bailey - Last Filed: 12/24/18 00:43> Differential Diagnosis elevated blood pressure, TIA, atypical chest pain, Medical Records Medical records reviewed: Yes I reviewed the patient's medical records. Lab Data Result diagrams: 12/23/18 15:24 12/23/18 15:24 Lab Results 12/23/18 12/23/18 12/23/18 Range/Units 15:24 15:24 15:24 WBC 6.0 (4.5-11.0) X10^3/uL RBC 3.73 L (4.0-5.2) X10^6/uL Hgb 12.0 (12.0-16.0) g/dL Hct 36.8 (36-46) % MCV 98.6 (80-100) fL MCH 32.2 (26-34) PG MCHC 32.6 (30-36) % RDW 14.8 (11.6-14.8) % Plt Count 224 (150-400) X10^3/uL Neut % (Auto) 46.1 L (50-75) % Lymph % (Auto) 38.3 (25-40) % [place] % (Auto) 6.9 (3-14) % Eos % (Auto) 7.7 H (2-4) % Baso % (Auto) 1.0 (0-2) % Neut # (Auto) 2800 (9892-3933) /uL Lymph # (Auto) 2300 (3733-0796) /uL [place] # (Auto) 400 (0-900) /uL Eos # (Auto) 500 H (0-450) /uL Baso # (Auto) 100 (0-100) /uL PT 11.5 (10.1-12.7) SECONDS INR 1.0 (0.9-1.3) APTT 35 D (26.4-36.2) SECONDS Sodium 139 (137-145) mmol/L Potassium 4.6 (3.4-5.1) mmol/L Chloride 108 H (98-107) mmol/L Carbon Dioxide 25 (22-32) mmol/L BUN 19 H (7-17) mg/dL Creatinine 0.90 (0.52-1.04) mg/dL Estimated GFR > 60.0 (>60) mL/min BUN/Creatinine Ratio 21.1 (6-22) Glucose 144 H (80-110) mg/dL Calcium 9.0 (8.4-10.2) mg/dL Total Bilirubin 0.2 (0.2-1.3) mg/dL AST 34 (14-36) IU/L ALT < 6 L (9-52) IU/L Alkaline Phosphatase 53 (38-126) U/L Total Creatine Kinase < 20 L (30-135) U/L CK-MB (CK-2) TNP CK-MB (CK-2) Rel Index TNP Troponin I < 0.012 (0.01-0.034) ng/mL Total Protein 6.3 (6.3-8.2) g/dL Albumin 3.5 (3.5-5.0) g/dL Globulin 2.8 (1.7-4.1) g/dL Albumin/Globulin Ratio 1.3 (1.0-2.8) Imaging Data Chest x-ray: Radiologist's impression: [address] [address] XRay Report Signed Patient: Veronique Gould LMR#: [id number] : 7Acct:[id number] Age/Sex: 73 / FDate of Service: 12/23/18 Loc: ED Accession Number: [id number] Procedure: XR chest 1V Ordering Provider: Michael Benavides PROCEDURE: XR CHEST 1V INDICATIONS: chest, neck/shoulder pain with elevated BP TECHNIQUE: One view of the chest was acquired. COMPARISON: [facility] , XR CHEST 2V, 10/20/2018, 11:31. FINDINGS: Surgical changes and devices: Clips are present overlying the upper abdomen. Partially visualized thoracolumbar fixation radha. Lungs and pleura: Lungs are clear. No pleural effusions or pneumothorax. Mediastinum: Mediastinal contours appear normal. Heart size is normal. Bones and chest wall: No suspicious bony lesions. Overlying soft tissues appear unremarkable. IMPRESSION: No acute pulmonary process. Dictated by: Yu Gimenez M.D. on 12/23/2018 at 15:38 Approved by: Yu Gimenez M.D. on 12/23/2018 at 15:38 CT scan - head: Radiologist's impression: [address] [address] [address] Scan Report Signed Patient: Veronique Gould LMR#: [id number] : 7At:[id number] Age/Sex: 73 / FDate of Service: 12/23/18 Loc: ED Accession Number: [id number] Procedure: CT head/brain wo con Ordering Provider: Michael Benavides PROCEDURE: CT HEAD/BRAIN WO CON INDICATIONS: vision change and weakness to R arm last night till early am TECHNIQUE: Noncontrast 4.5 mm thick angled axial sections acquired from the foramen magnum to the vertex, with coronal and sagittal reformats. For radiation dose reduction, the following was used: automated exposure control, adjustment of mA and/or kV according to patient size. COMPARISON: None. FINDINGS: Image quality: Excellent. CSF spaces: Basal cisterns are patent. No extra-axial fluid collections. The ventricles are symmetric in size and shape. Brain: No intracranial bleeds or masses. There is cerebral volume loss for age, with resultant ventricular and sulcal prominence. There are periventricular and deep white matter chronic small vessel ischemic changes. There is intracranial internal carotid artery atherosclerosis. Skull and face: Calvarium and visualized facial bones appear intact, without suspicious lesions. Sinuses: Visualized sinuses and mastoids are clear. IMPRESSION: No acute intracranial disease process. Dictated by: Tasha Calvillo MD, PhD on 12/23/2018 at 16:26 Approved by: Tasha Calvillo MD, PhD on 12/23/2018 at 16:28 ECG Data Attestation: I personally reviewed and interpreted this ECG as follows: Prior ECG tracings: available for review Interpretation: SR rate at 71 with noral axis, Q waves in anteroseptal leads MDM Narrative Medical decision making narrative: This is a 73-year-old lady complaining of elevated blood pressure at home noted by home health provider. however, she takes Midodrine 3 times a day at home for low blood pressure. Blood pressure in emergency room during her stay exhibited no elevated blood pressure, average 130-140/60-70. Patient reported symptoms such as chest discomfort, dizziness, neck and shoulder discomfort with the elevated blood pressure at home. Then, patient also states she had vision change and right arm heaviness that lasted for 12 hours yesterday which started at 4:00 p.m. yesterday. However she reports this symptoms are resolved at this time. She did not select to come in to ED at that time thinking this symptoms will pass. He was not clear if the patient ever had a TIA. The neuro exam was normal in ED. The blood test include cardiac enzymes, chest x-ray, head CT scan your unremarkable. Patient was medicated with aspirin full dose in ED prior DC to home and advised to incre ase to a full-dose of aspirin until evaluated by Dr. Zurita. CHADS2 Score indicates moderate to high risk. Patient also advised that she needs to return to ED if she feels stroke-like symptoms for an evaluation immediately. At this time it is a bit unclear whether patient had TIA. EKG showed SR with Q-waves in anteroseptal regions. Return precautions were discussed with the patient and patient advised to follow up with Dr. Ambriz in 2-3 days. Patient agrees with treatment plan and no further questions were expressed it is at this time. <Raisa Kee MD - Last Filed: 12/26/18 07:11> Lab Data Lab Results 12/23/18 12/23/18 12/23/18 Range/Units 15:24 15:24 15:24 WBC 6.0 (4.5-11.0) X10^3/uL RBC 3.73 L (4.0-5.2) X10^6/uL Hgb 12.0 (12.0-16.0) g/dL Hct 36.8 (36-46) % MCV 98.6 (80-100) fL MCH 32.2 (26-34) PG MCHC 32.6 (30-36) % RDW 14.8 (11.6-14.8) % Plt Count 224 (150-400) X10^3/uL Neut % (Auto) 46.1 L (50-75) % Lymph % (Auto) 38.3 (25-40) % [place] % (Auto) 6.9 (3-14) % Eos % (Auto) 7.7 H (2-4) % Baso % (Auto) 1.0 (0-2) % Neut # (Auto) 2800 (9180-8871) /uL Lymph # (Auto) 2300 (8619-4033) /uL [place] # (Auto) 400 (0-900) /uL Eos # (Auto) 500 H (0-450) /uL Baso # (Auto) 100 (0-100) /uL PT 11.5 (10.1-12.7) SECONDS INR 1.0 (0.9-1.3) APTT 35 D (26.4-36.2) SECONDS Sodium 139 (137-145) mmol/L Potassium 4.6 (3.4-5.1) mmol/L Chloride 108 H (98-107) mmol/L Carbon Dioxide 25 (22-32) mmol/L BUN 19 H (7-17) mg/dL Creatinine 0.90 (0.52-1.04) mg/dL Estimated GFR > 60.0 (>60) mL/min BUN/Creatinine Ratio 21.1 (6-22) Glucose 144 H (80-110) mg/dL Calcium 9.0 (8.4-10.2) mg/dL Total Bilirubin 0.2 (0.2-1.3) mg/dL AST 34 (14-36) IU/L ALT < 6 L (9-52) IU/L Alkaline Phosphatase 53 (38-126) U/L Total Creatine Kinase < 20 L (30-135) U/L CK-MB (CK-2) TNP CK-MB (CK-2) Rel Index TNP Troponin I < 0.012 (0.01-0.034) ng/mL Total Protein 6.3 (6.3-8.2) g/dL Albumin 3.5 (3.5-5.0) g/dL Globulin 2.8 (1.7-4.1) g/dL Albumin/Globulin Ratio 1.3 (1.0-2.8) Discharge Plan Departure Patient Disposition: Home Clinical Impression: Blood pressure elevated without history of HTN, TIA (transient ischemic attack) Discharge Date/Time: 12/23/18 17:09 Instructions: DI for Transient Ischemic Attack, DI for High Blood Pressure Activity Restrictions/Additional Instructions: You have been diagnosed with [elevated blood pressure reading at home with symptoms of chest discomfort, headache, vision change. You reported TIA symptoms as right arm weakness and vision change last night which lasted for 12 hours and resolved. Your blood pressure in ED were 130-140's in Systolic with 70-80's distolic. Cardiac enzyme, electrolytes, CT scan of head head was unremarkable. You were medicated with aspirin before discharge to home.]. What to do: *Take your medications as directed. You can increase baby aspirin to full dose until you are evaluated by Dr. Zurita. Otherwise no new medications to go home with. *Follow up with your primary care provider in 2-3 days, call for an appointment. Let them know you were seen in the ED and that we asked you to be seen in follow up. *Return to ED if you have any new, worsening, or concerning symptoms, such as [facial droops, difficulties with speech and vision, weakness to 1 limb, balance problem, chest pain, breathing difficulty, any acute concerns]. Prescriptions: No Action levothyroxine [Synthroid] 175 mcg tablet 175 mcg PO DAILY Qty: 90 RF: 1 (DME) blood-glucose meter [Blood Glucose Monitoring] kit See Dose Instructions .ROUTE .MEDSUPPLY Qty: 1 RF: 0 citalopram 20 mg tablet 40 mg PO DAILY Qty: 60 RF: 5 gabapentin 600 mg tablet 600 - 1,200 mg PO TID Qty: 90 RF: 0 (DME) Blood Glucose Test strip See Dose Instructions .ROUTE .MEDSUPPLY Qty: 100 RF: 3 (DME) lancets misc See Dose Instructions .ROUTE .MEDSUPPLY Qty: 100 RF: 3 bupropion HCl 150 mg tablet sustained-release 12 hr 150 mg PO BID Qty: 60 RF: 0 lovastatin 10 mg tablet 5 mg PO Q OTHER DAY Qty: 30 RF: 0 carbidopa-levodopa 25-100 mg tablet 1 tab PO TID Qty: 90 RF: 0 ferrous sulfate 325 mg (65 mg iron) tablet 325 mg PO BID Qty: 60 RF: 0 temazepam 15 mg capsule 15 mg PO BEDTIME PRN (Reason: Sleep) Qty: 20 RF: 0 midodrine 10 mg tablet 10 mg PO TID Qty: 90 RF: 0 sirfotpmga-rowwinyztjutc-utkm 50-325-40 mg tablet See Rx Instructions .ROUTE .COMPLEX PRN (Reason: Headache) Qty: 10 RF: 0 hydrocodone-acetaminophen 5-325 mg tablet 1 - 2 tab PO QID PRN (Reason: pain) Qty: 112 RF: 0 Walker: Four Wheel 1 u miscellaneous DIRECTED RF: 0 Diabetic Shoes 1 pkg miscellaneous DIRECTED RF: 0 aspirin 81 mg Tablet,Delayed Release (Dr/Ec) 81 mg PO DAILY RF: 0 potassium chloride [Klor-Con M10] 10 mEq Tablet,Er Particles/Crystals 10 meq PO DAILYCC Qty: 30 RF: 0 usvkcsvt-upi-hduezyw gluconate [Centrum] 9 mg iron/15 mL liquid 1 dose PO DAILY RF: 0 Referrals: Corby Zurita MD [Primary Care Provider] -
== END 2018-12-23 17:09 | disposition home or self-care (01) ==
PROVIDERS: Emergency Provider Nurse Practitioner Family; PCP Family Medicine
DX: R03.0 Elevated blood-pressure reading, without diagnosis of hypertension (principal); G45.9 Transient cerebral ischemic attack, unspecified; Z79.82 Long term (current) use of aspirin
CPT/HCPCS: 36415; 70450; 71045; 80053; 82550; 84484; 85025; 85610; 85730; 93005; 99283; 99285

== ENCOUNTER → 2019-01-01 17:00 | Outpatient (CLI) | payer MEDICARE, OTHER, SELFPAY ==
--- NOTE | 2019-01-01 | DI.MRI.S_ITS ---
PROCEDURE: MR LUMBAR SPINE WO CON INDICATIONS: LOW BACK AND BILATERAL LEG RADICULAR PAIN TECHNIQUE: Noncontrast sagittal T1 spin echo and T2 fast echo, sagittal STIR, axial T1 and T2 fast spin echo through the lumbar spine. In cases with scoliosis, additional coronal T2 fast spin echo may be performed. COMPARISON: [facility], MR, MR LUMBAR SPINE WO CON, 12/21/2017, 9:10. [facility], CR, XR LUMBAR SPINE MIN 4V, 02/06/2018, 12:18. FINDINGS: Image quality: Excellent. Alignment and Curvature: There is mild L2-L3 and L3-L4 anterolisthesis which is stable compared to prior exams. 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 Postsurgical changes compatible with 2-L4 left posterior and interbody fusion are stable compared to prior exams. No acute vertebral body compression fractures. Spinal Cord: Conus medullaris terminates at the L1-2 disc level. Visualized cord demonstrates normal signal and size. Paraspinous Soft Tissues: No paravertebral masses. L1-L2: Loss of disc signal. No central stenosis. Mild left neural foraminal narrowing. No neural compression. L2-L3: Status post fusion. Mild, diffuse disc bulge. Moderate bilateral facet hypertrophy. Mild narrowing of the central canal. Moderate right and oygz-ia-fjocevci left neural foraminal narrowing. No neural compression. L3-L4: Status post fusion. Mild, diffuse disc bulge. Moderate to severe bilateral facet hypertrophy. Moderate narrowing of the central canal. Severe right and wdgwedwm-ko-ftvlhb left neural foraminal narrowing with compression of the exiting L3 nerve roots. L4-L5: Loss of disc signal. Moderate right and hqnxxhvv-hg-ctdbdp left facet hypertrophy. Mild narrowing of the central canal. Mild right and moderate left neural foraminal narrowing. No neural compression. Fissure noted in the posterior annulus. L5-S1: Rudimentary disc. No central stenosis. No neural foraminal narrowing. No neural compression. IMPRESSION: 1. 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 2. Status post L2-L4 fusion stable in appearance compared to prior exams. 3. Multilevel degenerative disc disease. 4. Multilevel facet arthropathy. 5. Moderate L3-L4 central canal narrowing. Mild L2-L3 and L4-L5 central canal narrowing. 6. Severe right and moderate to severe left L3-L4 neural foraminal narrowing. Mild right and moderate left L4-L5 neural foraminal narrowing. Moderate right and mild to moderate left L2-L3 neural foraminal narrowing. 7. Compression of the exiting bilateral L3 nerve root secondary to bilateral L3-L4 neural foraminal narrowing. Please correlate with clinical data. Dictated by: Tasha Calvillo MD, PhD on 01/02/2019 at 14:57 Approved by: Tasha Calvillo MD, PhD on 01/02/2019 at 15:07
== END ==
PROVIDERS: PCP Family Medicine; Visit Provider Physical Medicine & Rehabilitation
DX: T84.498A Other mechanical complication of other internal orthopedic devices, implants and grafts, initial encounter (principal); M54.5 Low back pain; M47.26 Other spondylosis with radiculopathy, lumbar region; G89.29 Other chronic pain; M48.061 Spinal stenosis, lumbar region without neurogenic claudication; M51.16 Intervertebral disc disorders with radiculopathy, lumbar region
CPT/HCPCS: 72148

== ENCOUNTER 2019-01-10 15:19 | Emergency (ER) | payer MEDICARE, OTHER, SELFPAY ==
[2019-01-10 15:32] VITALS: BP 129/69; PULSE 82; RESP 17; TEMP 36.4; O2SAT 97
--- NOTE | 2019-01-10 15:46 | ED.GENADULT ---
HPI - General Adult General Chief complaint: Diabetic Problem Stated complaint: Seizure Like Activity Time Seen by Provider: 01/10/19 15:23 Source: patient, family and EMS Mode of arrival: EMS Limitations: no limitations History of Present Illness HPI narrative: This is a 73-year-old female comes emergency department with seizure-like activity. Patient and were sitting on the couch noted she started shaking he thought it last for 1-2 minutes. EMS was contacted. He states that she seems back to normal at this time in the department. Patient's blood sugar was 41. She does take glipizide daily and states she has had some episodes where her sugars were low and felt shaky but never had this type of activity. Patient denies any fevers or chills, no chest pain or shortness of breath no nausea vomiting no other GI or urinary symptoms. She has had a little bit of nasal congestion. She has not had any other new changes to her medications other than she stopped her gabapentin but this was 2 or 3 weeks ago. Patient has had a gastric bypass denies any other surgeries. Related Data Home Medications Medication Instructions Recorded Confirmed Diabetic Shoes 1 pkg MISCELLANEOUS DIRECTED 01/14/18 01/10/19 Walker: Four Wheel 1 u MISCELLANEOUS DIRECTED 01/14/18 01/10/19 aspirin 81 mg PO DAILY 08/28/18 01/10/19 izqpqkcu-gmh-rncutwy gluconate 1 dose PO DAILY 12/23/18 01/10/19 [Centrum] Previous Rx's Medication Instructions Recorded levothyroxine 175 mcg tablet 175 mcg PO DAILY #90 tab 07/22/18 blood-glucose meter #1 each 08/27/18 potassium chloride [Klor-Con M10] 10 meq PO DAILYCC #30 tab 09/01/18 citalopram 20 mg tablet 40 mg PO DAILY #60 tab 09/27/18 blood sugar diagnostic #100 each 10/22/18 lancets #100 each 10/22/18 bupropion HCl 150 mg tablet,12 hr 150 mg PO BID #60 each 12/12/18 sustained-release carbidopa 25 mg-levodopa 100 mg 1 tab PO TID #90 tab 12/12/18 tablet ferrous sulfate 325 mg (65 mg 325 mg PO BID #60 tab 12/12/18 iron) tablet lovastatin 10 mg tablet 5 mg PO Q OTHER DAY #30 tab 12/12/18 midodrine 10 mg tablet 10 mg PO TID #90 tab 12/16/18 hydrocodone 5 mg-acetaminophen 325 1 - 2 tab PO QID PRN #112 tab 01/06/19 mg tablet mtxedgpqxl-cvrmrmkpvyavu-jjsbiene See Rx Instructions .ROUTE 01/08/19 50 mg-325 mg-40 mg tablet .COMPLEX PRN #60 tab gabapentin 600 mg tablet 600 - 1,200 mg PO TID #90 tab 01/08/19 temazepam 15 mg capsule 15 mg PO BEDTIME PRN #30 cap 01/08/19 Allergies Allergy/AdvReac Type Severity Reaction Status Date / Time amoxicillin [From AUGMENTIN] Allergy Mild RASH Verified 11/14/18 13:54 clavulanic acid Allergy Mild RASH Verified 11/14/18 13:54 [From AUGMENTIN] metformin [METFORMIN] AdvReac Severe SWELLING Verified 11/14/18 13:54 Review of Systems Review of Systems ROS Unobtainable: All systems reviewed & are unremarkable except as noted in HPI and below PFSH Social History marital status: household members: spouse and children Smoking Status: Never smoker alcohol intake: never substance use type: does not use Exam Narrative Exam Narrative: GENERAL: Alert and oriented x three, well-nourished, well-appearing female in no acute distress. HEENT: Head normocephalic, atraumatic, EOMI, pupils reactive, face symmetric, moist mucous membranes, no facial droop. NECK: Supple, full range of motion CARDIOVASCULAR: Regular rate and rhythm without murmurs, rubs or gallops. No JVD. RESPIRATORY: Breath sounds equal bilaterally, no wheezes rales or rhonchi. ABDOMEN: Soft, nontender. Normoactive bowel sounds all 4 quadrants. No guarding or rebound, rigidity, no mass : No CVA tenderness EXTREMITIES: Normal range of motion, no clubbing or edema. Neurovascularly intact NEUROLOGICAL: Cranial nerves II through XII grossly intact. Full range of motion of all extremities. SKIN: Warm, dry, no petechiae, no rashes or lesions. Initial Vital Signs Initial Vital Signs: Vital Signs Temperature 97.6 F 01/10/19 15:32 Pulse Rate 82 01/10/19 15:32 Respiratory Rate 17 01/10/19 15:32 Blood Pressure 129/69 01/10/19 15:32 Pulse Oximetry 97 01/10/19 15:32 Course Orders Ordered: ED Orders 01/10/19 16:08 XR chest 1V Stat 01/10/19 16:12 EKG-12 Lead Stat 01/10/19 16:50 Basic Metabolic Panel Stat Complete Blood Count AUTO DIFF Stat Magnesium Stat Prolactin Stat Troponin & CK Cardiac Panel Stat 01/10/19 17:08 Urinalysis Sreen (Dip Only) Stat Urine Culture Stat Urine Drug Screen, Rapid Stat Urine Microscopic Stat Vital Signs Vital signs: Vital Signs - 8 hr 01/10/19 15:32 Temperature 97.6 F Pulse Rate 82 Respiratory Rate 17 Blood Pressure 129/69 Pulse Oximetry 97 Medical Decision Making Lab Data Lab results reviewed: Yes I reviewed the patient's lab results. Result diagrams: 01/10/19 16:50 01/10/19 16:50 Labs: Lab Results 01/10/19 01/10/19 01/10/19 Range/Units 16:50 16:50 16:50 WBC 8.3 (4.5-11.0) X10^3/uL RBC 3.70 L (4.0-5.2) X10^6/uL Hgb 11.8 L (12.0-16.0) g/dL Hct 35.8 L (36-46) % MCV 96.8 (80-100) fL MCH 31.8 (26-34) PG MCHC 32.9 (30-36) % RDW 14.3 (11.6-14.8) % Plt Count 231 (150-400) X10^3/uL Neut % (Auto) 66.3 (50-75) % Lymph % (Auto) 19.7 L (25-40) % [place] % (Auto) 6.7 (3-14) % Eos % (Auto) 6.7 H (2-4) % Baso % (Auto) 0.6 (0-2) % Neut # (Auto) 5500 (6519-1761) /uL Lymph # (Auto) 1600 (8080-1897) /uL [place] # (Auto) 600 (0-900) /uL Eos # (Auto) 600 H (0-450) /uL Baso # (Auto) 100 (0-100) /uL Sodium 140 (137-145) mmol/L Potassium 4.7 (3.4-5.1) mmol/L Chloride 112 H (98-107) mmol/L Carbon Dioxide 23 (22-32) mmol/L BUN 20 H (7-17) mg/dL Creatinine 0.70 (0.52-1.04) mg/dL Estimated GFR > 60.0 (>60) mL/min BUN/Creatinine Ratio 28.6 H (6-22) Glucose 66 L (80-110) mg/dL Calcium 8.9 (8.4-10.2) mg/dL Magnesium 1.9 (1.6-2.3) mg/dL Total Creatine Kinase 34 (30-135) U/L CK-MB (CK-2) TNP CK-MB (CK-2) Rel Index TNP Troponin I < 0.012 (0.01-0.034) ng/mL Prolactin 11.4 (3.0-18.6) ng/mL Urine Color Urine Appearance Urine pH (4.5-8.0) Ur Specific [place] (1.000-1.035) Urine Protein (Negative) Urine Glucose (UA) (Negative) g/dL Urine Ketones (NEGATIVE) Urine Occult Blood (Negative) Urine Nitrate (Negative) Urine Bilirubin (NEGATIVE) Urine Urobilinogen (0.2) E.U./dL Ur Leukocyte Esterase (NEGATIVE) Urine RBC (0-5/HPF) Urine WBC (0-5/HPF) Ur Squamous Epith Cells (0-5/HPF) Urine Bacteria (None) Ur Culture Indicated? Urine Opiates Screen (Negative) Ur Oxycodone Screen (Negative) Urine Methadone Screen (Negative) Ur Barbiturates Screen (Negative) U Tricyclic Antidepress (Negative) Ur Phencyclidine Scrn (Negative) Ur Amphetamines Screen (Negative) U Methamphetamines Scrn (Negative) Ur MDMA Scrn (Ecstasy) (Negative) U Benzodiazepines Scrn (Negative) Urine Cocaine Screen (Negative) U Marijuana (THC) Screen (Negative) 01/10/19 01/10/19 Range/Units 17:08 17:08 WBC (4.5-11.0) X10^3/uL RBC (4.0-5.2) X10^6/uL Hgb (12.0-16.0) g/dL Hct (36-46) % MCV (80-100) fL MCH (26-34) PG MCHC (30-36) % RDW (11.6-14.8) % Plt Count (150-400) X10^3/uL Neut % (Auto) (50-75) % Lymph % (Auto) (25-40) % [place] % (Auto) (3-14) % Eos % (Auto) (2-4) % Baso % (Auto) (0-2) % Neut # (Auto) (2797-7526) /uL Lymph # (Auto) (8200-0735) /uL [place] # (Auto) (0-900) /uL Eos # (Auto) (0-450) /uL Baso # (Auto) (0-100) /uL Sodium (137-145) mmol/L Potassium (3.4-5.1) mmol/L Chloride (98-107) mmol/L Carbon Dioxide (22-32) mmol/L BUN (7-17) mg/dL Creatinine (0.52-1.04) mg/dL Estimated GFR (>60) mL/min BUN/Creatinine Ratio (6-22) Glucose (80-110) mg/dL Calcium (8.4-10.2) mg/dL Magnesium (1.6-2.3) mg/dL Total Creatine Kinase (30-135) U/L CK-MB (CK-2) CK-MB (CK-2) Rel Index Troponin I (0.01-0.034) ng/mL Prolactin (3.0-18.6) ng/mL Urine Color Yellow Urine Appearance Clear Urine pH 5.5 (4.5-8.0) Ur Specific [place] 1.010 (1.000-1.035) Urine Protein Negative (Negative) Urine Glucose (UA) Negative (Negative) g/dL Urine Ketones Negative (NEGATIVE) Urine Occult Blood Negative (Negative) Urine Nitrate Negative (Negative) Urine Bilirubin Negative (NEGATIVE) Urine Urobilinogen 0.2 (0.2) E.U./dL Ur Leukocyte Esterase 1+ H (NEGATIVE) Urine RBC None seen (0-5/HPF) Urine WBC 1-5/hpf (0-5/HPF) Ur Squamous Epith Cells 1-5 /hpf (0-5/HPF) Urine Bacteria Occasional (0-1) (None) Ur Culture Indicated? Specimen cultured Urine Opiates Screen Positive H (Negative) Ur Oxycodone Screen Negative (Negative) Urine Methadone Screen Negative (Negative) Ur Barbiturates Screen Negative (Negative) U Tricyclic Antidepress Negative (Negative) Ur Phencyclidine Scrn Negative (Negative) Ur Amphetamines Screen Negative (Negative) U Methamphetamines Scrn Negative (Negative) Ur MDMA Scrn (Ecstasy) Negative (Negative) U Benzodiazepines Scrn Negative (Negative) Urine Cocaine Screen Negative (Negative) U Marijuana (THC) Screen Negative (Negative) Point of Care Testing Glucose POC 195 Point of care testing: Point of Care Testing Glucose POC 195 Imaging Data Chest x-ray: Radiologist's impression: [address] [address] XRay Report Signed Patient: Veronique Gould LMR#: [id number] : 7Acct:[id number] Age/Sex: 73 / FDate of Service: 01/10/19 Loc: ED Accession Number: [id number] Procedure: XR chest 1V Ordering Provider: Katrin Dey D.O. PROCEDURE: XR CHEST 1V INDICATIONS: hypoglycemia TECHNIQUE: One view of the chest was acquired. COMPARISON: [facility], ELIJAH, XR CHEST 1V, 12/23/2018, 15:24. FINDINGS: Surgical changes and devices: Surgical clips are seen in epigastric region. Lungs and pleura: Lungs are clear. No pleural effusions or pneumothorax. Mediastinum: Mediastinal contours appear normal. Heart size is normal. Bones and chest wall: No suspicious bony lesions. Overlying soft tissues appear unremarkable. IMPRESSION: No acute cardiopulmonary pathology. Dictated by: Jose F Soto M.D. on 01/10/2019 at 16:35 Approved by: Jose F Soto M.D. on 01/10/2019 at 16:36 ECG Data Attestation: I personally reviewed and interpreted this ECG as follows: Interpretation: Sinus rhythm rate of 76 [place] 143 QRS 82 and QTC of 426. No ST elevation or depression. MDM Narrative Medical decision making narrative: Patient comes in with which described as shaking in bed and [place] was 41. Patient had improved in her mentation here. She was 66 on her blood sugar. She was given some food initial drink and on recheck shows The patient has anemia that appears consistent with priors. Her chloride is slightly high at 112 but otherwise normal electrolytes and BUN of 20. Renal function is in a normal range. Troponin is negative. Prolactin is in a normal range. Chest x-ray does not show acute findings. Urine does not show any signs of infection. Patient's EKG does not show any acute findings. Suspect patient may be having some hypoglycemia secondary to her medication. Discussed with patient I would like her to stop her DM medication over the weekend, continue to follow sugars and keep track. They do have a monitor and teaching was given by nursing. Discharge Plan Departure Patient Disposition: Home Clinical Impression: Hypoglycemia Instructions: DI for Hypoglycemia Activity Restrictions/Additional Instructions: Follow up with your physician on Sunday. Stop your glipizide. Continue to check your sugars regularly at home. Return to the emergency department for any new or worsening symptoms, recurrent hypoglycemia, lightheadedness, passing out, altered mental status, persistent nausea or vomiting, new chest pain, shortness of breath, black or bloody stools or other new or concerning symptoms. Prescriptions: No Action levothyroxine [Synthroid] 175 mcg tablet 175 mcg PO DAILY Qty: 90 RF: 1 (DME) blood-glucose meter [Blood Glucose Monitoring] kit See Dose Instructions .ROUTE .MEDSUPPLY Qty: 1 RF: 0 citalopram 20 mg tablet 40 mg PO DAILY Qty: 60 RF: 5 (DME) Blood Glucose Test strip See Dose Instructions .ROUTE .MEDSUPPLY Qty: 100 RF: 3 (DME) lancets misc See Dose Instructions .ROUTE .MEDSUPPLY Qty: 100 RF: 3 bupropion HCl 150 mg tablet sustained-release 12 hr 150 mg PO BID Qty: 60 RF: 0 lovastatin 10 mg tablet 5 mg PO Q OTHER DAY Qty: 30 RF: 0 carbidopa-levodopa 25-100 mg tablet 1 tab PO TID Qty: 90 RF: 0 ferrous sulfate 325 mg (65 mg iron) tablet 325 mg PO BID Qty: 60 RF: 0 midodrine 10 mg tablet 10 mg PO TID Qty: 90 RF: 0 hydrocodone-acetaminophen 5-325 mg tablet 1 - 2 tab PO QID PRN (Reason: pain) Qty: 112 RF: 0 gabapentin 600 mg tablet 600 - 1,200 mg PO TID Qty: 90 RF: 1 yyyhrmmqqb-taprcomoiwggw-jpou 50-325-40 mg tablet See Rx Instructions .ROUTE .COMPLEX PRN (Reason: Headache) Qty: 60 RF: 0 temazepam 15 mg capsule 15 mg PO BEDTIME PRN (Reason: Sleep) Qty: 30 RF: 0 Walker: Four Wheel 1 u miscellaneous DIRECTED RF: 0 Diabetic Shoes 1 pkg miscellaneous DIRECTED RF: 0 aspirin 81 mg Tablet,Delayed Release (Dr/Ec) 81 mg PO DAILY RF: 0 potassium chloride [Klor-Con M10] 10 mEq Tablet,Er Particles/Crystals 10 meq PO DAILYCC Qty: 30 RF: 0 jvzfntwu-qia-iwfpubg gluconate [Centrum] 9 mg iron/15 mL liquid 1 dose PO DAILY RF: 0 Referrals: Corby Zurita MD [Primary Care Provider] -
--- NOTE | 2019-01-10 16:08 | DI.RAD.S_ITS ---
PROCEDURE: XR CHEST 1V INDICATIONS: hypoglycemia TECHNIQUE: One view of the chest was acquired. COMPARISON: [facility], CR, XR CHEST 1V, 12/23/2018, 15:24. FINDINGS: Surgical changes and devices: Surgical clips are seen in epigastric region. Lungs and pleura: Lungs are clear. No pleural effusions or pneumothorax. Mediastinum: Mediastinal contours appear normal. Heart size is normal. Bones and chest wall: No suspicious bony lesions. Overlying soft tissues appear unremarkable. IMPRESSION: No acute cardiopulmonary pathology. Dictated by: Jose F Soto M.D. on 01/10/2019 at 16:35 Approved by: Jose F Soto M.D. on 01/10/2019 at 16:36
[2019-01-10 16:58] LABS: Add Manual Diff / Slide Review NO; Basophils Absolute Auto 100 /uL (0-100); Basophils Percent Auto 0.6 % (0-2); Eosinophils Absolute Auto 600 /uL (0-450); Eosinophils Percent Auto 6.7 % (2-4); Hematocrit 35.8 % (36-46); Hemoglobin 11.8 g/dL (12.0-16.0); Lymphocytes Absolute Auto 1600 /uL (1100-4500); Lymphocytes Percent Auto 19.7 % (25-40); Mean Corpuscular HGB Conc 32.9 % (30-36); Mean Corpuscular Hemoglobin 31.8 PG (26-34); Mean Corpuscular Volume 96.8 fL (80-100); Monocytes Absolute Auto 600 /uL (0-900); Monocytes Percent Auto 6.7 % (3-14); Neutrophils Absolute Auto 5500 /uL (1500-7000); Neutrophils Percent Auto 66.3 % (50-75); Platelet Count 231 X10^3/uL (150-400); Red Cell Distribution Width 14.3 % (11.6-14.8); White Blood Cell Count 8.3 X10^3/uL (4.5-11.0)
[2019-01-10 17:09] LABS: Creatine Kinase 34 U/L (30-135)
[2019-01-10 17:15] LABS: Appearance Urine UA CLEAR; Bilirubin Urine UA NEGATIVE (NEGATIVE); Color Urine UA YELLOW; Glucose Urine UA NEGATIVE (Negative); Ketones Urine UA NEGATIVE (NEGATIVE); Leukocyte Esterase Urine UA 1+ (NEGATIVE); Nitrite Urine UA NEGATIVE (Negative); Occult Blood Urine UA NEGATIVE (Negative); Protein Urine UA NEGATIVE (Negative); Urobilinogen Urine UA 0.2 E.U./dL (0.2)
[2019-01-10 17:18] LABS: pH Urine UA 5.5 (4.5-8.0)
[2019-01-10 17:19] LABS: RBC Urine None Seen (0-5/HPF)
[2019-01-10 17:20] LABS: Urine Amphetamines Negative (Negative); Urine Barbiturates Negative (Negative); Urine Benzodiazepines Negative (Negative); Urine Cocaine Negative (Negative); Urine MDMA Negative (Negative); Urine Methadone Negative (Negative); Urine Methamphetamines Negative (Negative); Urine Morphine/Opi cutoff 2000 Positive (Negative); Urine Oxycodone Negative (Negative); Urine Phencyclidine Negative (Negative); Urine Tetrahydrocannabinol Negative (Negative); Urine Tricyclic Antidepressant Negative (Negative)
[2019-01-10 17:21] LABS: Troponin I < 0.012 ng/mL (0.01-0.034)
[2019-01-10 17:22] LABS: BUN Creatinine Ratio 28.6 (6-22); Blood Urea Nitrogen 20 mg/dL (7-17); Calcium 8.9 mg/dL (8.4-10.2); Carbon Dioxide 23 mmol/L (22-32); Chloride 112 mmol/L (98-107); Estimated Glomerular Filt Rate > 60.0 mL/min (>60); Glucose 66 mg/dL (80-110); HEMOLYSIS < 15 (0-50); Magnesium 1.9 mg/dL (1.6-2.3); Potassium 4.7 mmol/L (3.4-5.1); Sodium 140 mmol/L (137-145)
[2019-01-10 17:23] LABS: Bacteria Urine Occasional (0-1); Culture Indicated Urine Specimen Cultured; Squamous Epithelial Cell Urine 1-5 /HPF (0-5/HPF); WBC Urine 1-5/HPF (0-5/HPF)
[2019-01-10 17:39] LABS: Prolactin 11.4 ng/mL (3.0-18.6)
--- NOTE | 2019-01-10 18:38 | PC.NURSE ---
Pt reports having similar episodes over the past several days. States has not been checking blood sugars (did not have a monitor). Episodes described as same as hypoglycemic symptoms. did teaching on how to check blood sugars with glucometer
[2019-01-10 19:15] VITALS: BP 120/57; PULSE 70; RESP 19; O2SAT 99
== END 2019-01-10 19:16 | disposition home or self-care (01) ==
PROVIDERS: Emergency Provider Emergency Medicine; PCP Family Medicine
DX: E16.2 Hypoglycemia, unspecified (principal)
CPT/HCPCS: 36415; 71045; 80048; 80305; 81003; 81015; 82550; 82962; 83735; 84146; 84484; 85025; 87086; 93005; 99283; 99285

== ENCOUNTER → 2019-01-15 11:13 | Outpatient (CLI) | payer MEDICARE, OTHER, SELFPAY ==
[2019-01-15 12:18] LABS: Add Manual Diff / Slide Review NO; Basophils Absolute Auto 100 /uL (0-100); Basophils Percent Auto 1.3 % (0-2); Eosinophils Absolute Auto 500 /uL (0-450); Eosinophils Percent Auto 6.1 % (2-4); Hematocrit 36.5 % (36-46); Hemoglobin 12.2 g/dL (12.0-16.0); Lymphocytes Absolute Auto 2500 /uL (1100-4500); Lymphocytes Percent Auto 29.2 % (25-40); Mean Corpuscular HGB Conc 33.3 % (30-36); Mean Corpuscular Hemoglobin 32.3 PG (26-34); Mean Corpuscular Volume 97.1 fL (80-100); Monocytes Absolute Auto 600 /uL (0-900); Monocytes Percent Auto 7.2 % (3-14); Neutrophils Absolute Auto 4800 /uL (1500-7000); Neutrophils Percent Auto 56.2 % (50-75); Platelet Count 233 X10^3/uL (150-400); Red Blood Cell Count 3.76 X10^6/uL (4.0-5.2); Red Cell Distribution Width 14.7 % (11.6-14.8); White Blood Cell Count 8.5 X10^3/uL (4.5-11.0)
[2019-01-15 13:36] LABS: HEMOLYSIS < 15 (0-50); Iron 172 ug/dL (37-170)
[2019-01-15 13:38] LABS: Alanine Aminotransferase 7 IU/L (9-52); Albumin 3.7 g/dL (3.5-5.0); Albumin Globulin Ratio 1.3 (1.0-2.8); Alkaline Phosphatase 61 U/L (38-126); Aspartate Aminotransferase 35 IU/L (14-36); BUN Creatinine Ratio 31.4 (6-22); Bilirubin Total 0.2 mg/dL (0.2-1.3); Blood Urea Nitrogen 22 mg/dL (7-17); Calcium 9.2 mg/dL (8.4-10.2); Carbon Dioxide 24 mmol/L (22-32); Chloride 107 mmol/L (98-107); Estimated Glomerular Filt Rate > 60.0 mL/min (>60); Globulin 2.9 g/dL (1.7-4.1); Glucose 73 mg/dL (80-110); HEMOLYSIS < 15 (0-50); Potassium 5.3 mmol/L (3.4-5.1); Sodium 139 mmol/L (137-145); Total Protein 6.6 g/dL (6.3-8.2)
[2019-01-15 13:47] LABS: Percent Iron Saturation 56 % (15-50); Total Iron Binding Capacity 308 ug/dL (265-497); Transferrin 262 mg/dL (206-381)
[2019-01-15 13:53] LABS: Hemoglobin A1C% w Est Avg Glu 5.2 % (4.0-6.0)
[2019-01-15 14:09] LABS: Thyroid Stimulating Hormone 1.12 uIU/mL (0.47-4.68)
[2019-01-15 14:16] LABS: Ferritin 61.7 ng/mL (11.1-264)
== END ==
PROVIDERS: PCP Family Medicine; Visit Provider Family Medicine
DX: E05.90 Thyrotoxicosis, unspecified without thyrotoxic crisis or storm (principal); R03.0 Elevated blood-pressure reading, without diagnosis of hypertension; R73.09 Other abnormal glucose; Z13.220 Encounter for screening for lipoid disorders; Z13.6 Encounter for screening for cardiovascular disorders; D64.9 Anemia, unspecified
CPT/HCPCS: 36415; 80053; 82728; 83036; 83540; 83550; 84443; 85025

== ENCOUNTER 2019-03-13 10:58 | Outpatient (CLI) | payer MEDICARE, OTHER, SELFPAY ==
[2019-03-13] VITALS (14 sets, daily range): BP systolic 118–168; BP diastolic 63–96; PULSE 67–73; RESP 16–18; TEMP 36.4; O2SAT 97–100
--- NOTE | 2019-03-13 11:35 | DI.RAD.S_ITS ---
PROCEDURE: PAIN L/S MED/LAT N RFA BILAT INDICATIONS: SPONDYLOSIS FINDINGS: Fluoroscopic spot filming was performed to verify placement of spinal needles at the L5 and S1 level(s), as labeled on the films. Appropriate location(s) of the needle tip(s) was confirmed by injection of iodinated contrast. IMPRESSION: Fluoroscopy for pain management. Dictated by: Isis Billy M.D. on 03/13/2019 at 14:42 Approved by: Isis Billy M.D. on 03/13/2019 at 14:43
[2019-03-13] MEDS: MIDAZOLAM 5 MG/5 ML VIAL IV (12:04)
[2019-03-13] MEDS: fentaNYL 100 MCG/2 ML INJ 50 MCG IV (12:04)
[2019-03-13] MEDS: BETAMETHASONE 30 MG/5 ML MDV 12 MG INJ (12:16)
[2019-03-13] MEDS: LIDOCAINE 1% 20 ML 10 ML INJ (12:16)
[2019-03-13] MEDS: BUPIVACAINE 0.5% (PF) VIAL 2 ML INJ (12:16)
--- NOTE | 2019-03-13 12:40 | PC.NURSE ---
ASSISTING PT OFF TABLE AND TRANSPORTING TO POST PROC AREA IN STABLE CONDITION.
--- NOTE | 2019-03-13 12:47 | P.PCN_ITS ---
Procedures Date/Time Date of procedure: 03/13/19 Time of procedure: 12:47 General Procedure description: Procedure Note PREOP DIAGNOSIS 1. RECALCITRANT FACET ARTHROPATHY, POST OP DIAGNOSIS 1. RECALCITRANT FACET ARTHROPATHY, PROCEDURES 1. BILATERAL L5 MEDIAL BRANCH RADIOFREQUENCY NEUROTOMY AND BILATERAL S1 DORSAL RAMUS BRANCH RADIOFREQUENCY NEUROTOMY. PHYSICIAN: Zachary Wong, DO INDICATIONS Veronique is referred by Dr. Zurita for treatment of facet arthropathy. DESCRIPTION OF PROCEDURE Bilateral L5 medial branch radiofrequency neurotomy and bilateral S1 dorsal ramus branch radiofrequency neurotomy under fluoroscopy with conscious sedation. The patient is well known to this clinic having undergone previous facet injections with good but temporary relief. The patient has experienced appropriate, concordant relief with previous facet and median branch blocks but the patient's pain has been recalcitrant to further conservative measures. Therefore, based upon the patient's relief and persistent symptoms, the patient is considered an appropriate candidate for facet rhizotomy. All of the patient's questions regarding the risks versus benefits of the procedure, including, but not limited to, bleeding, infection, temporary as well as lasting nerve injury, paralysis, stroke, and , as well treatment alternatives were answered to satisfaction. After obtaining informed consent, denial of pertinent drug allergies, as well as being made aware of the potential risks of bleeding, infection, spinal cord trauma, paralysis, temporary and permanent nerve damage, seizure, stroke, and possible , the patient was brought to the fluoroscopy suite and positioned prone on the fluoroscopy table. The lumbar region was prepped with Betadine and covered with a fenestrated drape in the usual sterile fashion. Appropriate monitors applied including pulse oximeter, pulse, and blood pressure for regular monitoring throughout the procedure. After review of previous anaesthesic history and IV conscious sedation the patient was deemed safe to proceed with todays procedure with IV conscious sedation as ASA class II designation. Safety time-out was performed to confirm patient ID, procedure to be performed and site of procedure. IV sedation was accomplished with a combination of 5mg of Versed and 50mcg of Fentanyl was administered by the RN after DO order, titrated to patient comfort during the course of the procedure while the patient remained responsive to all verbal commands. After local infiltration using 1% lidocaine, under fluoroscopic guidance, a 10- cm RF insulated needle with a 10-mm active tip was positioned parallel to the junction of the bilateral sacral ala and the superior articulating process where the S1 dorsal ramus resides. Needle placement was confirmed with motor stimulation of .5v on the right; motor stimulation of .6v on the left, which produced local stimulation without radicular component. The stimulation was then increased to 1.5v with, once again, only local multifidus stimulation without radicular component. This was then followed by two discreet lesions performed at 80 degrees Celsius for 90 seconds each. The needle was then removed and the identical procedure was performed along the length of the bilateral L5 medial branch with motor stimulation at .7v on the right; motor stimulation at .6v on the left. The patient tolerated the procedure well without signs or symptoms of complications prior to transfer to the recovery area continued monitoring without incident. The patient was then transferred to the recovery area where they were observed for an appropriate period of time after the injection. The patient reported a VAS score of 7 prior to the procedure and a post- procedure VAS of 1. Total Fluoroscopy Time: 32.1 seconds Total Conscious Sedation Time: 46min POST OP INSTRUCTIONS The patient was provided a Pain Log to continue to record the patient's response to the target-specific procedure prior to the patient's follow-up visit with the referring physician. Additionally, specific post-injection care instructions and a contact number to our office were provided if concerns arise regarding possible complications associated with the procedure are suspected. Zachary Wong DO Complications: none
== END 2019-03-13 13:15 | disposition home or self-care (01) ==
PROVIDERS: PCP Family Medicine; Visit Provider Physical Medicine & Rehabilitation
DX: M47.817 Spondylosis without myelopathy or radiculopathy, lumbosacral region (principal)
CPT/HCPCS: 64635; 99152; 99153; J0702; J2250; J3010

== ENCOUNTER → 2019-03-26 12:30 | Outpatient (CLI) | payer MEDICARE, OTHER, SELFPAY ==
[2019-03-26 12:56] LABS: Hemoglobin A1C% w Est Avg Glu 6.3 % (4.0-6.0)
[2019-03-26 13:32] LABS: BUN Creatinine Ratio 21.3 (6-22); Blood Urea Nitrogen 17 mg/dL (7-17); Calcium 9.8 mg/dL (8.4-10.2); Carbon Dioxide 24 mmol/L (22-32); Chloride 107 mmol/L (98-107); Estimated Glomerular Filt Rate > 60.0 mL/min (>60); Glucose 164 mg/dL (80-110); HDL Cholesterol 81 mg/dL (40-60); Sodium 139 mmol/L (137-145); Triglycerides 234 mg/dL (35-150)
[2019-03-26 13:50] LABS: Cholesterol 351 mg/dL (140-199); HEMOLYSIS 80 (0-50); LDL Cholesterol Calculated 223 mg/dL (<100); Potassium 5.4 mmol/L (3.4-5.1)
== END ==
PROVIDERS: PCP Family Medicine; Visit Provider Family Medicine
DX: E78.2 Mixed hyperlipidemia (principal); E03.9 Hypothyroidism, unspecified; E05.90 Thyrotoxicosis, unspecified without thyrotoxic crisis or storm; E11.9 Type 2 diabetes mellitus without complications; E16.2 Hypoglycemia, unspecified; I10 Essential (primary) hypertension
CPT/HCPCS: 36415; 80048; 80061; 83036

== ENCOUNTER → 2019-05-29 13:52 | Outpatient (CLI) | payer MEDICARE, OTHER, SELFPAY ==
--- NOTE | 2019-05-29 13:55 | DI.RAD.S_ITS ---
PROCEDURE: XR HIP W PEL IF DONE LT MIN 4V INDICATIONS: Left hip pain TECHNIQUE: AP pelvis with lateral view(s) of the bilateral hip(s). COMPARISON: , CR, XR LUMBAR SPINE MIN 4V, 02/06/2018, 12:18. FINDINGS: Bones: No acute fracture or dislocation. Degenerative changes of the bilateral hip joints. Femoral head contours remain round and smooth bilaterally. Pelvic ring appears intact. No suspicious bony lesions. Partially imaged postsurgical changes from left posterior spinal fusion. Soft tissues: The visualized bowel gas pattern is normal. No suspicious soft tissue calcifications. Surgical clips project adjacent to the right hip joint. Findings of prior surgical mesh material in the abdomen. IMPRESSION: Bilateral hip degenerative change. No acute osseous abnormalities. Dictated by: Jarvis Taylor M.D. on 05/29/2019 at 21:48 Approved by: Jarvis Taylor M.D. on 05/29/2019 at 21:51
== END ==
PROVIDERS: PCP Family Medicine; Visit Provider Registered Nurse
DX: M25.552 Pain in left hip (principal); T84.498A Other mechanical complication of other internal orthopedic devices, implants and grafts, initial encounter; M48.061 Spinal stenosis, lumbar region without neurogenic claudication; G62.9 Polyneuropathy, unspecified; M47.817 Spondylosis without myelopathy or radiculopathy, lumbosacral region; M70.62 Trochanteric bursitis, left hip; E11.9 Type 2 diabetes mellitus without complications; W19.XXXA Unspecified fall, initial encounter; Z98.84 Bariatric surgery status; Z98.1 Arthrodesis status
CPT/HCPCS: 73522; 99213

== ENCOUNTER 2019-06-09 08:48 | Outpatient (CLI) | payer MEDICARE, OTHER, SELFPAY ==
[2019-06-09] VITALS (9 sets, daily range): BP systolic 112–126; BP diastolic 66–80; PULSE 63–70; RESP 16–18; TEMP 36.2; O2SAT 99–100
--- NOTE | 2019-06-09 08:50 | DI.RAD.S_ITS ---
PROCEDURE: PAIN L/S TRANSFORAMINAL INJECT INDICATIONS: SPINAL STENOSIS FINDINGS: Fluoroscopic spot filming was performed to verify placement of spinal needles at the L4-L5 level(s), as labeled on the films. Appropriate location(s) of the needle tip(s) was confirmed by injection of iodinated contrast. Dictated by: Miki Toledo M.D. on 06/09/2019 at 11:32 Approved by: Miki Toledo M.D. on 06/09/2019 at 11:32
[2019-06-09] MEDS: MIDAZOLAM 5 MG/5 ML VIAL IV (09:44)
[2019-06-09] MEDS: DEXAMETHASONE 10 MG/ML VIAL 20 MG INJ (09:53)
[2019-06-09] MEDS: IOPAMIDOL 15 ML VIAL 3 ML INJ (09:53)
[2019-06-09] MEDS: BUPIVACAINE 0.25% (PF) VIAL 2 ML INJ (09:53)
[2019-06-09] MEDS: BETAMETHASONE 30 MG/5 ML MDV 6 MG INJ (09:53)
--- NOTE | 2019-06-09 09:56 | PC.NURSE ---
ASSISTING PT OFF TABLE AND TRANSPORTING TO POST PROC AREA IN STABLE CONDITION. PASSING RN CARE OF PT OFF TO FRANCO Prasad RN.
--- NOTE | 2019-06-09 09:59 | P.PCN_ITS ---
Procedures Date/Time Date of procedure: 06/09/19 Time of procedure: 09:59 General Procedure description: PREOP DIAGNOSIS 1. FORMAINAL STENOSIS WITH LE SYMPTOMS POST OP DIAGNOSIS 1. FORMAINAL STENOSIS WITH LE SYMPTOMS PROCEDURES 1. FLUOROSCOPICALLY GUIDED CONTRAST CONTROLLED TRANSFORAMINAL EPIDURAL STEROID INJECTION - LEFT L4/5 PHYSICIAN: Zachary Wong DO INDICATIONS: Veronique is referred by for treatment of Foraminal Stenosis with Left LE Symptoms FINDINGS Foraminal Nerve Root Compression secondary to disc disease and facet hypertrophy DESCRIPTION OF PROCEDURE: Following review of allergy and review of potential side effects and complications, including, but not necessarily limited to, infection, allergic reaction, local tissue breakdown, stroke, temporary or permanent nerve injury, paralysis, and possible , the patient indicated that the patient understood and agreed to proceed. An informed consent document was signed by the patient, witnessed by a nurse, and placed in the patient's chart. Additionally, other treatment options including medications, modalities, and physical therapy were reviewed with the patient. After review of previous anaesthesic history and IV conscious sedation the patient was deemed safe to proceed with todays procedure with IV conscious sedation as ASA class II designation. Safety time-out was performed to confirm patient ID, procedure to be performed and site of procedure. IV sedation was accomplished with a combination of 2mg of Versed administered by the RN after DO order, titrated to patient comfort during the course of the procedure while the patient remained responsive to all verbal commands In the prone position following sterile prep and drape of the lumbar region, the left L4/5 posterior neuroforamen was identified fluoroscopically. The skin was anesthetized via a 25-gauge 1.5-inch needle with 1% lidocaine solution. At this point, a 25-gauge 3.5-inch spinal needle was atraumatically introduced and advanced under fluoroscopic guidance through the posterior left L4/5 neuroforamen to approximately the anterior aspect of the canal. Depth was confirmed on lateral view. Following negative aspiration, injection of approximately 1.5 cc of Isovue 200 under live fluoroscopy in the AP view confirmed excellent flow along the nerve root, into the epidural space without vascular or intrathecal uptake observed Radiological data, including multiple fluoroscopic views of the lumbosacral spine, reveal a spinal needle at the left L4/5 posterior neuroforamen. Subsequent views show flow of contrast material flowing superiorly and inferiorly along the nerve root confirming epidural flow. Subsequently, a test dose of 1.5 cc of 1% lidocaine solution was administered and patient was observed for two minutes for signs or symptoms of complications, including abdominal pain, shortness of breath, bilateral upper or lower extremity weakness, nausea and vomiting, prior to steroid injection. At this point, a total of 3cc or 20mg of dexamethasone and 6mg of betamethasone was injected without incident. The procedure tolerated the procedure well without signs or symptoms of complications prior to transfer to the recovery area continued monitoring without incident. The patient was then transferred to the recovery area where they were observed for an appropriate time after the injection. The patient reported a VAS score of 7 prior to the procedure and a post- procedure VAS of 0. Total Fluoroscopy Time: 8 seconds Total Conscious Sedation Time: 24min POST OP INSTRUCTIONS The patient was provided a Pain Log to continue to record their response to the target-specific procedure prior to follow-up visit with their referring physician. Additionally, specific post-injection care instructions and a contact number to our office were provided if concerns arise regarding possible complications associated with the procedure are suspected. Zachary Wong DO Complications: none
--- NOTE | 2019-06-09 10:16 | PC.NURSE ---
at 1001 return from procedure, reported pt with left leg weakness,, cookies and tea provided. 3/10 pain at this time
--- NOTE | 2019-06-09 10:24 | PC.NURSE ---
still has weakness left leg.
== END 2019-06-09 11:55 | disposition home or self-care (01) ==
PROVIDERS: PCP Family Medicine; Referring Provider Physical Medicine & Rehabilitation; Visit Provider Physical Medicine & Rehabilitation
DX: M48.061 Spinal stenosis, lumbar region without neurogenic claudication (principal); M51.16 Intervertebral disc disorders with radiculopathy, lumbar region
CPT/HCPCS: 64483; 99152; J0702; J1100; J2250; J3010

== ENCOUNTER → 2019-07-14 12:36 | Outpatient (CLI) | payer MEDICARE, OTHER, SELFPAY ==
[2019-07-14 13:58] LABS: Add Manual Diff / Slide Review NO; Basophils Absolute Auto 0 /uL (0-100); Basophils Percent Auto 0.4 % (0-2); Eosinophils Absolute Auto 200 /uL (0-450); Eosinophils Percent Auto 2.3 % (2-4); Hematocrit 39.9 % (36-46); Hemoglobin 13.3 g/dL (12.0-16.0); Lymphocytes Absolute Auto 1900 /uL (1100-4500); Lymphocytes Percent Auto 24.1 % (25-40); Mean Corpuscular HGB Conc 33.3 % (30-36); Mean Corpuscular Hemoglobin 32.6 PG (26-34); Mean Corpuscular Volume 97.9 fL (80-100); Monocytes Absolute Auto 500 /uL (0-900); Monocytes Percent Auto 5.8 % (3-14); Neutrophils Absolute Auto 5300 /uL (1500-7000); Neutrophils Percent Auto 67.4 % (50-75); Platelet Count 228 X10^3/uL (150-400); Red Blood Cell Count 4.07 X10^6/uL (4.0-5.2); White Blood Cell Count 7.9 X10^3/uL (4.5-11.0)
[2019-07-14 14:15] LABS: Alanine Aminotransferase 19 IU/L (<35); Albumin 4.2 g/dL (3.5-5.0); Albumin Globulin Ratio 1.3 (1.0-2.8); Alkaline Phosphatase 60 U/L (38-126); Aspartate Aminotransferase 31 IU/L (14-36); BUN Creatinine Ratio 27.8 (6-22); Bilirubin Total 0.3 mg/dL (0.2-1.3); Blood Urea Nitrogen 20 mg/dL (7-17); Calcium 9.5 mg/dL (8.4-10.2); Carbon Dioxide 26 mmol/L (22-32); Chloride 110 mmol/L (98-107); Cholesterol 264 mg/dL (140-199); Estimated Glomerular Filt Rate > 60.0 mL/min (>60); Globulin 3.2 g/dL (1.7-4.1); Glucose 168 mg/dL (80-110); HDL Cholesterol 51 mg/dL (40-60); HEMOLYSIS < 15 (0-50); LDL Cholesterol Calculated 165 mg/dL (<100); Potassium 4.3 mmol/L (3.4-5.1); Sodium 142 mmol/L (137-145); Total Protein 7.4 g/dL (6.3-8.2); Triglycerides 241 mg/dL (35-150)
[2019-07-14 14:49] LABS: Ferritin 69 ng/mL (11-264)
== END ==
PROVIDERS: PCP Family Medicine; Referring Provider Family Medicine; Visit Provider Family Medicine
DX: E78.2 Mixed hyperlipidemia (principal); E78.5 Hyperlipidemia, unspecified
CPT/HCPCS: 36415; 80053; 80061; 82728; 84443; 85025

== ENCOUNTER → 2019-08-04 11:55 | Outpatient (CLI) | payer MEDICARE, OTHER, SELFPAY ==
[2019-08-04 12:42] LABS: Hemoglobin A1C% w Est Avg Glu 6.9 % (4.0-6.0)
[2019-08-04 13:00] LABS: HEMOLYSIS < 15 (0-50); Iron 86 ug/dL (37-170)
[2019-08-04 13:02] LABS: BUN Creatinine Ratio 26.3 (6-22); Blood Urea Nitrogen 21 mg/dL (7-17); Estimated Glomerular Filt Rate > 60.0 mL/min (>60)
[2019-08-04 13:10] LABS: Percent Iron Saturation 28 % (15-50); Total Iron Binding Capacity 308 ug/dL (265-497); Transferrin 257 mg/dL (206-381)
[2019-08-04 13:37] LABS: Ferritin 91 ng/mL (11-264)
== END ==
PROVIDERS: PCP Family Medicine; Referring Provider Family Medicine; Visit Provider Family Medicine
DX: D64.9 Anemia, unspecified (principal)
CPT/HCPCS: 36415; 82565; 82728; 83036; 83540; 83550; 84520

== ENCOUNTER → 2019-10-22 11:57 | Outpatient (CLI) | payer MEDICARE, OTHER, SELFPAY ==
[2019-10-22 13:32] LABS: BUN Creatinine Ratio 20.8 (6-22); Blood Urea Nitrogen 21 mg/dL (7-17); Calcium 9.7 mg/dL (8.4-10.2); Carbon Dioxide 21 mmol/L (22-32); Chloride 107 mmol/L (98-107); Cholesterol 188 mg/dL (140-199); Estimated Glomerular Filt Rate 53.7 mL/min (>60); Glucose 131 mg/dL (80-110); HDL Cholesterol 46 mg/dL (40-60); HEMOLYSIS 17 (0-50); LDL Cholesterol Calculated 100 mg/dL (<100); Potassium 4.3 mmol/L (3.4-5.1); Sodium 139 mmol/L (137-145); Triglycerides 208 mg/dL (35-150)
[2019-10-22 13:35] LABS: Hemoglobin A1C% w Est Avg Glu 6.7 % (4.0-6.0)
[2019-10-22 14:00] LABS: Thyroid Stimulating Hormone 0.082 uIU/mL (0.47-4.68)
== END ==
PROVIDERS: PCP Family Medicine; Referring Provider Family Medicine; Visit Provider Family Medicine
DX: E03.9 Hypothyroidism, unspecified (principal); E78.2 Mixed hyperlipidemia
CPT/HCPCS: 36415; 80048; 80061; 83036; 84443

== ENCOUNTER → 2019-12-04 16:40 | Outpatient (CLI) | payer MEDICARE, OTHER, SELFPAY ==
[2019-12-04 18:01] LABS: Thyroid Stimulating Hormone < 0.015 uIU/mL (0.47-4.68)
== END ==
PROVIDERS: PCP Family Medicine; Referring Provider Family Medicine; Visit Provider Family Medicine
DX: E05.90 Thyrotoxicosis, unspecified without thyrotoxic crisis or storm (principal)
CPT/HCPCS: 36415; 84443

== ENCOUNTER → 2019-12-08 16:30 | Outpatient (CLI) | payer MEDICARE, OTHER, SELFPAY ==
--- NOTE | 2019-12-08 16:37 | DI.MRI.S_ITS ---
PROCEDURE: MR HIP LT WO CON INDICATIONS: Left hip pain TECHNIQUE: Noncontrast coronal T1 spin echo and STIR through the bony pelvis. Coronal and axial T2 fast spin echo with fat saturation, sagittal T1 spin echo, and oblique axial T2 fast spin echo with fat saturation through the hip. COMPARISON: [facility], MR, HIP WITHOUT CONTRAST, 12/01/2013, 19:03. FINDINGS: Image quality: Excellent. Bones and joints: Osteoarthritic changes are noted in bilateral hip joints with joint space narrowing, subchondral sclerosis and marginal osteophyte formation. No intraosseous lesions or fractures. No avascular necrosis of the femoral heads. The visualized lower lumbar spine appears normally aligned. Tendons and ligaments: Mild distal left gluteus medius and minimus tendinosis at their insertions on the greater trochanter is seen, without associated muscle atrophy. The nearby proximal iliotibial band also appears intact. The iliopsoas tendon appears intact, without adjacent bursal fluid collections or evidence for impingement syndrome. The origin of the hamstring tendon is intact at the ischial tuberosity, as well as the associated sacrotuberous ligament. The straight and reflected heads of the rectus femoris muscle origin appear intact, as well as the conjoint tendon. The ligamentum teres appears intact where visualized. Labrum and cartilage: The acetabular labrum appears intact in the absence of intra-articular contrast. The alpha angle of the femur is within normal limits at less than 55 degrees. Soft tissues: Visualized muscles demonstrate normal bulk and internal signal. Quadratus femoris muscle demonstrates no internal edema to suggest ischiofemoral impingement. The proximal sciatic neurovascular bundle appears normal adjacent to the hamstring tendons. No free pelvic fluid. Bladder wall thickness is normal. Genitourinary structures and bowel loops appear normal where visualized. IMPRESSION: 1. Symmetric appearing [id number] bilateral hip joint osteoarthritic changes. No fracture or dislocation. No evidence of avascular necrosis. 2. Mild distal left gluteus medius and minimus tendinosis at their insertions on greater trochanter. No other muscle or tendon signal abnormality is seen. 3. No evidence of focal labral tear in the absence of intra-articular contrast. Dictated by: Jose F Soto M.D. on 12/09/2019 at 9:16 Approved by: Jose F Soto M.D. on 12/09/2019 at 9:27
== END ==
PROVIDERS: PCP Family Medicine; Referring Provider Family Medicine; Visit Provider Family Medicine
DX: M25.552 Pain in left hip (principal)
CPT/HCPCS: 73721

== ENCOUNTER → 2020-02-05 14:59 | Outpatient (CLI) | payer MEDICARE, OTHER, SELFPAY ==
[2020-02-06 07:47] LABS: COVID19 Sendout Not Detected (Not Detect)
== END ==
PROVIDERS: PCP Family Medicine; Visit Provider Physician Assistant
DX: Z11.59 Encounter for screening for other viral diseases (principal)
CPT/HCPCS: 87635

== ENCOUNTER → 2020-02-05 15:00 | Outpatient (CLI) | payer MEDICARE, OTHER, SELFPAY ==
[2020-02-05 16:11] LABS: Add Manual Diff / Slide Review NO; Basophils Absolute Auto 0 /uL (0-100); Basophils Percent Auto 0.3 % (0-2); Eosinophils Absolute Auto 100 /uL (0-450); Eosinophils Percent Auto 0.8 % (2-4); Hematocrit 40.3 % (36-46); Hemoglobin 13.3 g/dL (12.0-16.0); Lymphocytes Absolute Auto 2100 /uL (1100-4500); Lymphocytes Percent Auto 19.6 % (25-40); Mean Corpuscular HGB Conc 32.9 % (30-36); Mean Corpuscular Hemoglobin 30.7 PG (26-34); Mean Corpuscular Volume 93.3 fL (80-100); Monocytes Absolute Auto 600 /uL (0-900); Monocytes Percent Auto 6.1 % (3-14); Neutrophils Absolute Auto 7800 /uL (1500-7000); Neutrophils Percent Auto 73.2 % (50-75); Platelet Count 379 X10^3/uL (150-400); Red Blood Cell Count 4.33 X10^6/uL (4.0-5.2); Red Cell Distribution Width 14.5 % (11.6-14.8); White Blood Cell Count 10.6 X10^3/uL (4.5-11.0)
[2020-02-05 16:29] LABS: Alanine Aminotransferase 10 IU/L (<35); Albumin 4.1 g/dL (3.5-5.0); Albumin Globulin Ratio 1.2 (1.0-2.8); Alkaline Phosphatase 85 U/L (38-126); Aspartate Aminotransferase 20 IU/L (14-36); BUN Creatinine Ratio 18.1 (6-22); Bilirubin Total 0.3 mg/dL (0.2-1.3); Blood Urea Nitrogen 13 mg/dL (7-17); Carbon Dioxide 25 mmol/L (22-32); Chloride 104 mmol/L (98-107); Estimated Glomerular Filt Rate > 60.0 mL/min (>60); Globulin 3.3 g/dL (1.7-4.1); Glucose 128 mg/dL (80-110); HEMOLYSIS < 15 (0-50); Lipase 30 U/L (23-300); Potassium 4.5 mmol/L (3.4-5.1); Sodium 137 mmol/L (137-145); Total Protein 7.4 g/dL (6.3-8.2)
== END ==
PROVIDERS: PCP Family Medicine; Referring Provider Family Medicine; Visit Provider Family Medicine
DX: Z11.59 Encounter for screening for other viral diseases (principal); R10.9 Unspecified abdominal pain
CPT/HCPCS: 36415; 80053; 83690; 85025; 87635

== ENCOUNTER → 2020-02-11 12:38 | Outpatient (CLI) | payer MEDICARE, OTHER, SELFPAY ==
--- NOTE | 2020-02-11 13:38 | DI.CT.S_ITS ---
PROCEDURE: CT ABDOMEN PELVIS W CON INDICATIONS: abdominal pain and vomiting TECHNIQUE: After the administration of oral and intravenous contrast, 5 mm thick sections acquired from the diaphragms to the symphysis. 5 mm thick coronal and sagittal reformats were performed. For radiation dose reduction, the following was used: automated exposure control, adjustment of mA and/or kV according to patient size. COMPARISON: [facility], , CT ABDOMEN/PELVIS WITH CONTRAST, 05/18/2018, 21:56. [facility], CT, ABDOMEN/PELVIS WITH CONTRAST, 11/27/2011, 18:05. FINDINGS: Image quality: Excellent. ABDOMEN: Lung bases: Lung bases are clear. Heart size is normal. Solid organs: Liver is normal in size and enhancement. No focal lesion. Gallbladder is mildly distended. The cystic duct is prominent similar to before. Biliary system is non-dilated. Pancreas enhances normally. Small calcifications at the tail the pancreas, similar to 2019 CT. Spleen is normal in size and enhancement. No adrenal nodules. Kidneys are normal in size and enhancement, without hydronephrosis. Mild scarring in the mid right kidney, unchanged. Peritoneum and bowel: Appearance of Bud-en-Y gastric bypass. No small bowel obstruction. Stomach is not significantly distended. Small hiatal hernia. Prominent stool in the cecum and transverse colon. Normal appendix. No free fluid or air. Nodes and vessels: No retroperitoneal or mesenteric adenopathy. Small mesenteric lymph nodes. Aorta and inferior vena cava are normal in caliber. Miscellaneous: No ventral hernias. Ventral abdominal wall scarring and mesh. PELVIS: Genitourinary: Bladder is unremarkable. Uterus is absent. Miscellaneous: No inguinal hernias or adenopathy. Bones: No suspicious bony lesions. Left L3-L5 pedicle screw fixation with intervertebral body spacers. No vertebral body compression fractures. Clips adjacent to the right hip. IMPRESSION: 1. No acute abnormality identified. No free fluid. 2. No small bowel obstruction. 3. Gallbladder and cystic duct are prominent similar to the prior exam. -consider further evaluation with gallbladder ultrasound. 4. Prominent stool in the cecum and transverse colon which could be seen in constipation. Dictated by: Abilio Shafer M.D. on 02/11/2020 at 15:55 Approved by: Abilio Shafer M.D. on 02/11/2020 at 16:16
[2020-02-11 17:02] LABS: Cholesterol 197 mg/dL (140-199); HDL Cholesterol 47 mg/dL (40-60); LDL Cholesterol Calculated 94 mg/dL (<100); Triglycerides 280 mg/dL (35-150)
[2020-02-11 17:37] LABS: Thyroid Stimulating Hormone < 0.015 uIU/mL (0.47-4.68)
--- NOTE | 2020-02-25 11:50 | ONC.SCHED ---
Spoke with patient to set up follow up and patient understands she needs labs to be completed at [facility] 1 week prior to appointment
== END ==
PROVIDERS: PCP Family Medicine; Referring Provider Family Medicine; Visit Provider Family Medicine
DX: R10.9 Unspecified abdominal pain (principal); R11.10 Vomiting, unspecified; B37.0 Candidal stomatitis; E11.9 Type 2 diabetes mellitus without complications; G40.909 Epilepsy, unspecified, not intractable, without status epilepticus; E05.90 Thyrotoxicosis, unspecified without thyrotoxic crisis or storm
CPT/HCPCS: 36415; 74177; 80061; 83036; 84443; Q9967

== ENCOUNTER → 2020-03-09 10:10 | Oncology outpatient (ONC) | payer MEDICARE, OTHER, SELFPAY ==
[2018-09-03 11:06] VITALS: BMI 26.3
[2018-10-09 09:53] VITALS: BP 91/54; PULSE 99; RESP 18; TEMP 36.6; O2SAT 99
--- NOTE | 2018-10-09 10:17 | P.CONONC_ITS ---
History of Present Illness - Data of Consult Consult date: 10/09/18 Primary Care Provider: Corby Zurita MD - Consult Narrative Narrative: Diagnosis: Anemia History of present illness: Veronique Gould is a 73 year old female who is referred for further evaluation of anemia. She was hospitalized about a month ago with an infection. While in the hospital, she is noted to have an anemia with a hemoglobin of 10.7 that dropped as low as 8.4. She did not have a transfusion. On repeat on October 07, hemoglobin had improved to 11.9 and hematocrit 36.9. Review of old CBCs shows that over the last few years, her hemoglobin has ranged between 8 and 11. She has not been aware of any unusual bleeding or bruising. She denies any epistaxis or gingival bleeding. No blood in the urine or stool. She has not noticed any unusual bruising. Year ago, she was clearly iron deficient with a low ferritin. She was treated with IV iron. She has had a couple of transfusions in the past, the most recent was a few years ago. She notes that she has had chronic anemia off and on. She notes that she has been losing some weight. She has lost more than 40 lb over the last few months. She is eating. She feels like her appetite is fair. No nausea or vomiting. No fevers chills or sweats. She does have some chronic dyspnea on exertion and shortness of breath. She does use a walker and is able to walk on level ground. She struggles with hills however. She does have intermittent lightheadedness. She has had longstanding history of hypotension. She sometimes takes midodrine for this. Her past medical history is notable for prior stomach surgery. She has had a history of diabetes. She does have history of orthostatic hypotension. She has chronic back pain. She has migraine headaches. Her medications include aspirin bupropion Sinemet citalopram gabapentin hydrocodone she is on a course of levofloxacin and has 2 more days remaining. Levothyroxine lovastatin might a drain potassium and temazepam. She has iron listed on her medication list but is not taking it. Family history is negative for anemia or blood dyscrasias. 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 She does not smoke or use alcohol. CC: Dilan Clinton MD Home Medications and Allergies Home Medications Medication Instructions Recorded Confirmed Type Diabetic Shoes 1 pkg MISCELLANEOUS DIRECTED 01/14/18 10/09/18 History Walker: Four Wheel 1 u MISCELLANEOUS DIRECTED 01/14/18 10/09/18 History bupropion HCl 150 mg PO BID 03/05/18 10/09/18 History levothyroxine 175 mcg tablet 175 mcg PO DAILY #90 tab 07/22/18 10/09/18 Rx ferrous sulfate [FeroSul] 1 tab PO BID 08/04/18 10/09/18 History blood sugar diagnostic strips #100 each 08/27/18 10/09/18 Rx blood-glucose meter kit #1 each 08/27/18 10/09/18 Rx lancets #100 each 08/27/18 10/09/18 Rx aspirin 81 mg PO DAILY 08/28/18 10/09/18 History lovastatin 5 mg PO Q OTHER DAY 08/28/18 10/09/18 History midodrine 10 mg PO TID #0 tab 09/01/18 10/09/18 Rx potassium chloride [Klor-Con M10] 10 meq PO DAILYCC #30 tab 09/01/18 10/09/18 Rx sodium citrate-citric acid 10 ml PO Q6HR #15 ml 09/01/18 10/09/18 Rx [id number] See Rx Instructions .ROUTE 09/27/18 10/09/18 Rx 50 mg-325 mg-40 mg tablet .COMPLEX PRN #60 tab citalopram 20 mg tablet 40 mg PO DAILY #60 tab 09/27/18 10/09/18 Rx gabapentin 600 mg tablet 600 - 1,200 mg PO TID #90 tab 09/27/18 10/09/18 Rx carbidopa 25 mg-levodopa 100 mg 1 tab PO TID #90 tab 10/02/18 10/09/18 Rx tablet hydrocodone 5 mg-acetaminophen 325 See Rx Instructions PO QID PRN 10/07/18 10/09/18 Rx mg tablet #112 tab levofloxacin 250 mg tablet 250 mg PO DAILY #7 tab 10/07/18 10/09/18 Rx temazepam 15 mg capsule 15 mg PO BEDTIME PRN #20 cap 10/07/18 10/09/18 Rx Allergies Allergy/AdvReac Type Severity Reaction Status Date / Time amoxicillin [From AUGMENTIN] Allergy Mild RASH Verified 10/07/18 14:51 clavulanic acid Allergy Mild RASH Verified 10/07/18 14:51 [From AUGMENTIN] metformin [METFORMIN] AdvReac Severe SWELLING Verified 10/07/18 14:51 Medical History - Medical, Surgical, Family History Medical History: Medical History (Updated 10/09/18 @ 10:17 by Dilan Clinton MD) Chronic back pain (Chronic) Onset Date: ~2009 Neuropathy (Chronic) Onset Date: ~2008 Headache (Chronic) Onset Date: ~1989 Migraines (Chronic) Onset Date: ~1989 Restless leg syndrome (Chronic) Onset Date: ~1989 Lupus (Chronic) Onset Date: ~1999 Arthritis (Chronic) Anemia Onset Date: ~2004 Foot pain Onset Date: ~2010 Fractures Onset Date: ~2011 Gastric ulcer Onset Date: ~1991 History of irregular menstrual cycles Onset Date: ~1989 Hyperthyroidism Onset Date: ~2004 Ovarian cyst Onset Date: ~1999 Painful menstrual periods Onset Date: ~1978 Chicken pox Measles Mumps Surgical History: Surgical History (Updated 10/09/18 @ 10:17 by Dilan Clinton MD) Gastric bypass status for obesity (Acute) H/O hernia repair S/P foot surgery, right Hx of resection of stomach Family History: Family History (Updated 05/31/18 @ 15:57 by Esther Simons RN) Grandfather No problems noted. Grandmother No problems noted. Mother No problems noted. Son Diabetes mellitus - Social History Smoking Status: Never smoker Review of Systems - Patient Self-Reported Symptoms SR Constitution: Weight loss/gain SR eye issues: Vision changes SR respiratory issues: Shortness of breath SR Cardiovascular issues: Extreme swelling, Dizzy/lightheaded SR Musculoskeletal issues: Back or neck pain, Cold hands or feet, Difficulty walking, Bone pain Constitutional: weight loss, decreased activity level Ears, nose, mouth, throat: headaches, lightheadedness Cardiovascular: dyspnea on exertion, no chest pain Respiratory: no cough Gastrointestinal: no change in appetite, no nausea, no vomiting Musculoskeletal: pain Integumentary: no bleeding or bruising Exam Vital signs: Vital Signs Temp Pulse Resp BP Pulse Ox 10/09/18 09:53 97.8 F 99 H 18 91/54 L 99 Intake and Output 10/08/18 10/09/18 10/09/18 23:59 07:59 15:59 Other: Weight 68 kg Patient Weight 10/09/18 23:59 Weight 68 kg - Constitutional positive no acute distress, positive average body habitus Comments: She is in a wheelchair. - Routine HEENT Exam Head: Present: normocephalic, atraumatic Eye: Present: EOMI, PERRL. Absent: conjunctival icterus, scleral injection ENT: Present: mucous membranes moist, oropharynx clear. Absent: dentition normal - Routine Neck Exam Present: supple. Absent: lymphadenopathy, thyromegaly - Routine Chest/Breast/Axilla Exam Axillae: Absent: lymphadenopathy - Routine Respiratory Exam Present: Clear to auscultation bilaterally. Absent: rales, wheezes - Routine Cardiovascular Exam Present: RRR, S1, S2. Absent: murmur - Routine Abdominal Exam Present: soft, normoactive bowel sounds. Absent: tenderness, organomegaly, mass - Routine Extremities Exam Absent: cyanosis, clubbing, edema - Routine Back/Spine Exam Back/Spine: Present: vertebral tenderness - Routine Skin Exam Present: intact. Absent: petechiae, rash - Routine Neurological Exam Present: alert, oriented X3 - Routine Psychiatric Exam Present: normal affect, normal thought process Results - Labs On October 07, her white count was 5.7, hemoglobin 11.9 hematocrit 36.9 platelets [id number]. Creatinine was 0.5. In August, TSH and free T4 were normal. In January of 2018, she had an iron of 27 and a TIBC of 418 with a sat of 6%. Her ferritin at that time was 9.2 but in June of this year was 191. An January of last year, her B12 was normal at 380. - Imaging Additional studies: Procedures Application of splint (12/16/11) Excision of Large Intestine, Via Natural or Artificial Opening Endoscopic, Diagnostic (08/04/18) Excision of Lumbar Vertebral Disc, Open Approach (12/05/16) Excision of Stomach, Via Natural or Artificial Opening Endoscopic, Diagnostic (08/04/18) Extraction of Back Subcutaneous Tissue and Fascia, Open Approach (01/05/17) Extraction of Iliac Bone Marrow, Percutaneous Approach (12/05/16) Fusion of 2 or more Lumbar Vertebral Joints with Autologous Tissue Substitute, Posterior Approach, Posterior Column, Open Approach (12/05/16) Fusion of 2 or more Lumbar Vertebral Joints with Interbody Fusion Device, Anterior Approach, Anterior Column, Open Approach (12/05/16) Incision of salivary gland or duct (02/19/10) Injection or infusion of other therapeutic or prophylactic substance (04/07/12) Open reduction of fracture with internal fixation, tibia and fibula (12/05/12) Other nonoperative respiratory measurements (04/07/12) Assessment and Plan (1) Anemia Current visit: Yes Status: Acute 73-year-old woman with history of anemia. Last year, she was clearly iron deficient but appeared respond to IV iron. Her ferritin currently is normal. It appears that her hemoglobin dropped during her hospital stay probably because of acute illness and IV fluids and has improved since then. I will plan on repeating a CBC as well as a reticulocyte count. We will plan on checking an SPEP and UPEP to rule out an underlying myeloma especially in light of her hailey ght loss. B12 deficiency is a possibility because of her prior gastric surgery. We will plan on rechecking that as well. She will return to clinic in about 2 weeks or so for follow-up. She does have a history of orthostatic hypotension and her blood pressure is low today but she feels similar to her usual. She will take her might adrenal when she gets home. If she still feels dizzy, she will contact her primary physician.
[2018-10-09 11:01] LABS: Add Manual Diff / Slide Review NO; Basophils Absolute Auto 100 /uL (0-100); Basophils Percent Auto 1.4 % (0-2); Eosinophils Absolute Auto 100 /uL (0-450); Eosinophils Percent Auto 1.7 % (2-4); Hematocrit 37.1 % (36-46); Hemoglobin 12.3 g/dL (12.0-16.0); Lymphocytes Absolute Auto 2300 /uL (1100-4500); Lymphocytes Percent Auto 31.1 % (25-40); Mean Corpuscular HGB Conc 33.3 % (30-36); Monocytes Absolute Auto 500 /uL (0-900); Monocytes Percent Auto 7.2 % (3-14); Neutrophils Absolute Auto 4300 /uL (1500-7000); Neutrophils Percent Auto 58.6 % (50-75); Platelet Count 305 X10^3/uL (150-400); Red Blood Cell Count 3.99 X10^6/uL (4.0-5.2); Red Cell Distribution Width 16.8 % (11.6-14.8); White Blood Cell Count 7.3 X10^3/uL (4.5-11.0)
[2018-10-09 11:23] LABS: Reticulocyte Count, Percent 0.7 % (1.06-2.63)
[2018-10-09 11:37] LABS: Lactate Dehydrogenase 480 U/L (313-618)
[2018-10-09 12:25] LABS: Vitamin B12 250 pg/mL (239-931)
[2018-10-11 14:57] LABS: Free Kappa Light Chain 26.2 mg/L (3.3-19.4); Free Kappa/ Lambda Ratio 1.11 (0.26-1.65); Free Lambda 23.6 mg/L (5.7-26.3)
[2019-01-01 10:43] VITALS: BP 145/80; PULSE 76; RESP 16; TEMP 36.7; O2SAT 100
--- NOTE | 2019-01-01 10:59 | ONC.PN ---
PN -Subjective Interval history: Diagnosis: Iron deficiency anemia. 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 Interval history: The patient is a 73-year-old woman who returns today for follow-up. Since her last visit in October, she has been feeling about the same. She denies any shortness of breath or chest pain. No dizziness or lightheadedness. She has not noticed any unusual bleeding or bruising. She did have fall recently but with no injuries. She has been taking iron. She finds that it upsets her stomach so she has only been taking it about every other day. She has not had any vomiting but has had a little bit of nausea and constipation. No fevers chills or sweats. She has not noticed any adenopathy. She denies any other changes in her health. - Patient Self-Reported Symptoms SR Constitution: Weight loss/gain SR eye issues: Vision changes SR respiratory issues: Shortness of breath SR Cardiovascular issues: Extreme swelling SR Skin issues: Dry skin, Hair loss or scalp prob SR Gastrointestinal issues: Abdominal pain SR Musculoskeletal issues: Joint pain or swelling, Muscle weakness, Back or neck pain, Cold hands or feet, Difficulty walking SR Neuro issues: Headache Home Medications and Allergies Home Medications Medication Instructions Recorded Confirmed Type Diabetic Shoes 1 pkg MISCELLANEOUS DIRECTED 01/14/18 01/01/19 History Walker: Four Wheel 1 u MISCELLANEOUS DIRECTED 01/14/18 01/01/19 History levothyroxine 175 mcg tablet 175 mcg PO DAILY #90 tab 07/22/18 01/01/19 Rx blood-glucose meter #1 each 08/27/18 01/01/19 Rx aspirin 81 mg PO DAILY 08/28/18 01/01/19 History potassium chloride [Klor-Con M10] 10 meq PO DAILYCC #30 tab 09/01/18 01/01/19 Rx citalopram 20 mg tablet 40 mg PO DAILY #60 tab 09/27/18 01/01/19 Rx blood sugar diagnostic #100 each 10/22/18 01/01/19 Rx gabapentin 600 mg tablet 600 - 1,200 mg PO TID #90 tab 10/22/18 01/01/19 Rx lancets #100 each 10/22/18 01/01/19 Rx bupropion HCl 150 mg tablet,12 hr 150 mg PO BID #60 each 12/12/18 01/01/19 Rx sustained-release carbidopa 25 mg-levodopa 100 mg 1 tab PO TID #90 tab 12/12/18 01/01/19 Rx tablet ferrous sulfate 325 mg (65 mg 325 mg PO BID #60 tab 12/12/18 01/01/19 Rx iron) tablet lovastatin 10 mg tablet 5 mg PO Q OTHER DAY #30 tab 12/12/18 01/01/19 Rx temazepam 15 mg capsule 15 mg PO BEDTIME PRN #20 cap 12/12/18 01/01/19 Rx midodrine 10 mg tablet 10 mg PO TID #90 tab 12/16/18 01/01/19 Rx emesnlgmms-zmnapmphrtxrp-quotohjj See Rx Instructions .ROUTE 12/18/18 01/01/19 Rx 50 mg-325 mg-40 mg tablet .COMPLEX PRN #10 tab hydrocodone 5 mg-acetaminophen 325 1 - 2 tab PO QID PRN #112 tab 12/23/18 01/01/19 Rx mg tablet pbdguzqz-grs-xzvsnei gluconate 1 dose PO DAILY 12/23/18 01/01/19 History [Centrum] Allergies Allergy/AdvReac Type Severity Reaction Status Date / Time amoxicillin [From AUGMENTIN] Allergy Mild RASH Verified 11/14/18 13:54 clavulanic acid Allergy Mild RASH Verified 11/14/18 13:54 [From AUGMENTIN] metformin [METFORMIN] AdvReac Severe SWELLING Verified 11/14/18 13:54 Exam Vital signs: Vital Signs Temp Pulse Resp BP Pulse Ox 01/01/19 10:43 98.1 F 76 16 145/80 H 100 Intake and Output 12/31/18 01/01/19 01/01/19 23:59 07:59 15:59 Other: Weight 73.5 kg Patient Weight 01/01/19 23:59 Weight 73.5 kg - Constitutional positive no acute distress, positive average body habitus - Routine HEENT Exam Head: Present: normocephalic, atraumatic Eye: Present: EOMI, PERRL. Absent: conjunctival icterus, scleral injection ENT: Present: mucous membranes moist, oropharynx clear - Routine Neck Exam Present: supple. Absent: lymphadenopathy, thyromegaly - Routine Respiratory Exam Present: Clear to auscultation bilaterally. Absent: rales, wheezes - Routine Cardiovascular Exam Present: RRR, S1, S2. Absent: murmur - Routine Abdominal Exam Present: soft, normoactive bowel sounds. Absent: tenderness Results - Labs Laboratory Last Values WBC 7.3 X10^3/uL (4.5-11.0) 10/09/18 10:26 RBC 3.99 X10^6/uL (4.0-5.2) L 10/09/18 10:26 Hgb 12.3 g/dL (12.0-16.0) 10/09/18 10:26 Hct 37.1 % (36-46) 10/09/18 10:26 MCV 93.0 fL (80-100) 10/09/18 10:26 MCH 31.0 PG (26-34) 10/09/18 10: MCHC 33.3 % (30-36) 10/09/18 10: RDW 16.8 % (11.6-14.8) H 10/09/18 10:26 Plt Count 305 X10^3/uL (150-400) 10/09/18 10:26 Neut % (Auto) 58.6 % (50-75) 10/09/18 10:26 Lymph % (Auto) 31.1 % (25-40) 10/09/18 10:26 [place] % (Auto) 7.2 % (3-14) 10/09/18 10:26 Eos % (Auto) 1.7 % (2-4) L 10/09/18 10:26 Baso % (Auto) 1.4 % (0-2) 10/09/18 10:26 Neut # (Auto) 4300 /uL (0433-0419) 10/09/18 10:26 Lymph # (Auto) 2300 /uL (7893-9493) 10/09/18 10:26 [place] # (Auto) 500 /uL (0-900) 10/09/18 10:26 Eos # (Auto) 100 /uL (0-450) 10/09/18 10:26 Baso # (Auto) 100 /uL (0-100) 10/09/18 10:26 Percent Retic 0.7 % (1.06-2.63) L 10/09/18 10:26 Lactate Dehydrogenase 480 U/L (313-618) 10/09/18 10:26 Vitamin B12 250 pg/mL (239-931) 10/09/18 10:26 Serum Immunofixation See note 10/09/18 10:26 Free [place] Light Chains 26.2 mg/L (3.3-19.4) H 10/09/18 10:26 Free [place] Light Chain 23.6 mg/L (5.7-26.3) 10/09/18 10:26 Free [place]/Lambda Ratio 1.11 (0.26-1.65) 10/09/18 10:26 - Imaging Additional studies: Procedures Application of splint (12/16/11) Excision of Large Intestine, Via Natural or Artificial Opening Endoscopic, Diagnostic (08/04/18) Excision of Lumbar Vertebral Disc, Open Approach (12/05/16) Excision of Stomach, Via Natural or Artificial Opening Endoscopic, Diagnostic (08/04/18) Extraction of Back Subcutaneous Tissue and Fascia, Open Approach (01/05/17) Extraction of Iliac Bone Marrow, Percutaneous Approach (12/05/16) Fusion of 2 or more Lumbar Vertebral Joints with Autologous Tissue Substitute, Posterior Approach, Posterior Column, Open Approach (12/05/16) Fusion of 2 or more Lumbar Vertebral Joints with Interbody Fusion Device, Anterior Approach, Anterior Column, Open Approach (12/05/16) Incision of salivary gland or duct (02/19/10) Injection or infusion of other therapeutic or prophylactic substance (04/07/12) Open reduction of fracture with internal fixation, tibia and fibula (12/05/12) Other nonoperative respiratory measurements (04/07/12) Assessment and Plan (1) Anemia Current visit: Yes Status: Acute 73-year-old woman with history of anemia. She has been tolerating oral iron with some difficulty but her most recent CBC showed a normalization in her hemoglobin and hematocrit. She will continue with every other day iron. She will return to clinic in about 3-4 months for follow-up. 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 We will plan on checking that level again in 6-12 months.
--- NOTE | 2019-03-31 09:22 | ONC.SCHED ---
Moved patient appt from 04/08 to 04/15 @ 1000 due to needing to schedule an urgent patient. LVM for pt.
--- NOTE | 2020-03-09 10:00 | P.PNONC_ITS ---
PN -Subjective Interval history: Ms. Gould presents today for follow-up of iron deficiency anemia and monoclonal gammopathy of undetermined significance. Review of her records reveals that she had a serum protein electrophoresis in June of 2012 that showed a monoclonal paraprotein measuring 0.28 grams/deciliter. She also has a history of iron deficiency anemia. She had a colonoscopy that showed a tubular adenoma in March of 2010. She was admitted to [facility] last week from March 03 to March 05 with an episode of slurred speech that resolved. And a brain MRI, carotid ultrasound and echocardiogram were unremarkable. She also had orthostatic hypotension. 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 She was started on hydrocortisone and states that she felt much better after that. She was seen by PT and OT. She had laboratory studies done during this stay that showed a glucose 113 total protein 6.4 otherwise a normal comprehensive metabolic panel. Her admission hemoglobin was 11.2 hematocrit 35.5 platelets [id number] white count 6400 with normal differential and normal red cell indices. On March 04 ferritin was 44 with an iron saturation of 14%. Vitamin B12 level came back at 100 37 she now presents here for a follow-up visit. She notes that since she went home she is definitely feeling better . She still walks a walker and dheeraj tan uses a wheelc she is ou but definitely has improved. She still has an occasional cough and dizziness. She notes dry skin and generalized achiness. She has trouble with her balance and has had some cough. She denies any new pain, shortness of breath, nausea, vomiting, fevers or chills. All other systems are negative. Past medical history 1. High blood pressure 2. Diabetes 3. She has had gastric bypass surgery, inguinal herniorrhaphy, foot operation, back operation open reduction internal fixation of a fracture. 4. History of migraines 5. Recent diagnosis of adrenal insufficiency with orthostatic hypotension 6. DJD 7. History of lupus 8. Restless leg syndrome 9. History of peripheral neuropathy 10. History of seizure disorder 11. She is accompanied by who is very supportive. 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 She is not a smoker or drinker. 12. Her family history is negative for any lymphoproliferative type disorders 13. She does not tolerate amoxicillin, clavulanic acid her metformin 14. Medications are reviewed and are as noted in the chart - Patient Self-Reported Symptoms SR Constitution: Weight loss/gain SR eye issues: Vision changes SR respiratory issues: Shortness of breath SR Cardiovascular issues: Extreme swelling SR Skin issues: Dry skin, Hair loss or scalp prob SR Gastrointestinal issues: Abdominal pain SR Musculoskeletal issues: Joint pain or swelling, Muscle weakness, Back or neck pain, Cold hands or feet, Difficulty walking SR Neuro issues: Headache Home Medications and Allergies Home Medications Medication Instructions Recorded Confirmed Type Diabetic Shoes 1 pkg MISCELLANEOUS DIRECTED 01/14/18 02/05/20 History blood-glucose meter #1 each 08/27/18 02/05/20 Rx aspirin 81 mg PO DAILY 08/28/18 02/05/20 History lancets #100 each 10/22/18 02/05/20 Rx ferrous sulfate 325 mg (65 mg 325 mg PO BID #60 tab 12/12/18 02/05/20 Rx iron) tablet blood sugar diagnostic #100 each 03/13/19 02/05/20 Rx bupropion HCl 150 mg tablet,12 hr 150 mg PO BID #60 each 07/14/19 02/05/20 Rx sustained-release citalopram 20 mg tablet 40 mg PO DAILY #60 tab 07/14/19 02/05/20 Rx lovastatin 20 mg tablet 20 mg PO DAILY #90 tab 07/25/19 02/05/20 Rx Walker: Four Wheel 1 wk MISCELLANEOUS DIRECTED #1 09/12/19 02/05/20 Rx wk carbidopa 25 mg-levodopa 100 mg 1 tab PO TID #90 tab 09/12/19 02/05/20 Rx tablet levetiracetam 750 mg tablet 1,500 mg PO Q12H #360 tab 10/22/19 02/05/20 Rx nystatin 100,000 unit/mL oral 1 ml PO Q6H #60 ml 10/22/19 02/05/20 Rx suspension Disabled Parking Permit #1 each 11/12/19 02/05/20 Rx gabapentin 600 mg tablet 600 - 1,200 mg PO TID #90 tab 12/04/19 02/05/20 Rx temazepam 15 mg capsule 30 mg PO BEDTIME PRN #60 cap 12/04/19 02/05/20 Rx pramipexole 0.125 mg tablet See Rx Instructions PO QPM #240 tab 01/15/20 02/05/20 Rx [id number] See Rx Instructions .ROUTE 10/14/20 Rx 50 mg-325 mg-40 mg tablet .COMPLEX PRN #60 tab levothyroxine 125 mcg tablet 125 mcg PO DAILY #90 tab 02/17/20 Rx cetirizine 10 mg capsule 10 mg PO DAILY PRN #30 cap 02/20/20 Rx hydrocodone 5 mg-acetaminophen 325 1 - 2 tab PO QID PRN #112 tab 03/08/20 Rx mg tablet Allergies Allergy/AdvReac Type Severity Reaction Status Date / Time amoxicillin [From AUGMENTIN] Allergy Mild RASH Verified 02/05/20 14:27 clavulanic acid Allergy Mild RASH Verified 02/05/20 14:27 [From AUGMENTIN] metformin [METFORMIN] AdvReac Severe SWELLING Verified 02/05/20 14:27 Exam Narrative: She was awake, alert and oriented x3. She was in no acute distress. There was no lymphadenopathy in the cervical, supraclavicular, axillary, inguinal femoral regions. The abdomen was soft and nontender without any palpable hepatosplenomegaly or masses. Results - Labs Laboratory Last Values WBC 7.3 X10^3/uL (4.5-11.0) 10/09/18 10:26 RBC 3.99 X10^6/uL (4.0-5.2) L 10/09/18 10:26 Hgb 12.3 g/dL (12.0-16.0) 10/09/18 10:26 Hct 37.1 % (36-46) 10/09/18 10:26 MCV 93.0 fL (80-100) 10/09/18 10:26 MCH 31.0 PG (26-34) 10/09/18 10:26 MCHC 33.3 % (30-36) 10/09/18 10:26 RDW 16.8 % (11.6-14.8) H 10/09/18 10:26 Plt Count 305 X10^3/uL (150-400) 10/09/18 10:26 Neut % (Auto) 58.6 % (50-75) 10/09/18 10:26 Lymph % (Auto) 31.1 % (25-40) 10/09/18 10:26 [place] % (Auto) 7.2 % (3-14) 10/09/18 10:26 Eos % (Auto) 1.7 % (2-4) L 10/09/18 10:26 Baso % (Auto) 1.4 % (0-2) 10/09/18 10:26 Neut # (Auto) 4300 /uL (2978-7678) 10/09/18 10:26 Lymph # (Auto) 2300 /uL (1068-9798) 10/09/18 10:26 [place] # (Auto) 500 /uL (0-900) 10/09/18 10:26 Eos # (Auto) 100 /uL (0-450) 10/09/18 10:26 Baso # (Auto) 100 /uL (0-100) 10/09/18 10:26 Percent Retic 0.7 % (1.06-2.63) L 10/09/18 10:26 Lactate Dehydrogenase 480 U/L (313-618) 10/09/18 10:26 Vitamin B12 250 pg/mL (239-931) 10/09/18 10:26 Serum Immunofixation See note 10/09/18 10:26 Free [place] Light Chains 26.2 mg/L (3.3-19.4) H 10/09/18 10:26 Free [place] Light Chain 23.6 mg/L (5.7-26.3) 10/09/18 10:26 Free [place]/Lambda Ratio 1.11 (0.26-1.65) 10/09/18 10:26 - Imaging Additional studies: Procedures Application of splint (12/16/11) Closed [endoscopic] biopsy of large intestine (04/11/10) Excision of Large Intestine, Via Natural or Artificial Opening Endoscopic, Diagnostic (08/04/18) Excision of Lumbar Vertebra, Open Approach (01/26/17) Excision of Lumbar Vertebral Disc, Open Approach (12/05/16) Excision of Stomach, Via Natural or Artificial Opening Endoscopic, Diagnostic (08/04/18) Extraction of Back Subcutaneous Tissue and Fascia, Open Approach (01/05/17) Extraction of Iliac Bone Marrow, Percutaneous Approach (12/05/16) Fusion of 2 or more Lumbar Vertebral Joints with Autologous Tissue Substitute, Posterior Approach, Posterior Column, Open Approach (12/05/16) Fusion of 2 or more Lumbar Vertebral Joints with Interbody Fusion Device, Anterior Approach, Anterior Column, Open Approach (12/05/16) Incision of salivary gland or duct (02/19/10) Injection or infusion of other therapeutic or prophylactic substance (04/07/12) Insertion of Infusion Device into Superior Vena Cava, Percutaneous Approach (01/26/17) Open reduction of fracture with internal fixation, tibia and fibula (12/05/12) Other endoscopy of small intestine (04/11/10) Other nonoperative respiratory measurements (04/07/12) Transfusion of packed cells (04/11/10) Venous catheterization, not elsewhere classified (04/11/10) Assessment and Plan (1) Anemia Status: Acute Ms. male or has a history of gastric bypass surgery. This puts her at risk of iron deficiency. She had a normal CBC and January of 2020 and her iron studies last week were normal. Accordingly, she will continue with her current iron supplementation of ferrous sulfate 325 mg twice a day. She also has a history of a monoclonal gammopathy of undetermined significance. We will recheck serum protein electrophoresis and free light chain assay today. She does not have any clinical findings that would suggest progression to an underlying lymphoproliferative disorder. She also has history of a low vitamin B12 level last week when she was in the hospital. This can occur as a consequence of previous gastric bypass surgery. Accordingly, will repeat this along with a methylmalonic acid level and if these remain low will arrange appropriate supplementation. She will need annual follow-up for her MGUS. A return appointment will be scheduled in a year. We will check a CBC, metabolic panel, protein electrophoresis, free light chain assay, and ferritin level prior to the visit. She will continue to see Dr. Zurita for her other medical problems. Impression: 1. Status post previous gastric bypass surgery 2. History of iron deficiency with normal iron parameters on current iron supplementation of ferrous sulfate 325 mg twice a day 3. Low vitamin B12 level last week 4. History of monoclonal gammopathy of undetermined significance Recommendations: 1. Check monoclonal paraprotein studies today including serum protein electrophoresis and free light chain assay 2. Will recheck vitamin B12 level and methylmalonic acid levels today 3. Will arrange vitamin B12 supplementation if she is low 4. Return here in 1 year for follow-up with serum protein electrophoresis, free light chain assay, CBC, and ferritin level prior
[2020-03-09 10:13] VITALS: BP 134/74; PULSE 88; RESP 18; TEMP 36.6; O2SAT 99
--- NOTE | 2020-03-09 10:25 | ONC.SCHED ---
Patient will call to schedule her one year fup after obtaining new auth from [place] which will before then.
[2020-03-09 10:59] LABS: Add Manual Diff / Slide Review NO; Basophils Absolute Auto 0 /uL (0-100); Basophils Percent Auto 0.6 % (0-2); Eosinophils Absolute Auto 200 /uL (0-450); Eosinophils Percent Auto 2.6 % (2-4); Hematocrit 36.8 % (36-46); Hemoglobin 11.9 g/dL (12.0-16.0); Lymphocytes Absolute Auto 1200 /uL (1100-4500); Lymphocytes Percent Auto 16.9 % (25-40); Mean Corpuscular HGB Conc 32.3 % (30-36); Mean Corpuscular Hemoglobin 30.5 PG (26-34); Mean Corpuscular Volume 94.3 fL (80-100); Monocytes Absolute Auto 500 /uL (0-900); Monocytes Percent Auto 6.5 % (3-14); Neutrophils Absolute Auto 5300 /uL (1500-7000); Neutrophils Percent Auto 73.4 % (50-75); Platelet Count 240 X10^3/uL (150-400); Red Cell Distribution Width 15.8 % (11.6-14.8); White Blood Cell Count 7.3 X10^3/uL (4.5-11.0)
[2020-03-09 11:13] LABS: Alanine Aminotransferase 18 IU/L (<35); Albumin 3.8 g/dL (3.5-5.0); Albumin Globulin Ratio 1.3 (1.0-2.8); Alkaline Phosphatase 62 U/L (38-126); Aspartate Aminotransferase 27 IU/L (14-36); BUN Creatinine Ratio 24.3 (6-22); Bilirubin Total 0.3 mg/dL (0.2-1.3); Blood Urea Nitrogen 17 mg/dL (7-17); Calcium 9.2 mg/dL (8.4-10.2); Carbon Dioxide 26 mmol/L (22-32); Chloride 110 mmol/L (98-107); Estimated Glomerular Filt Rate > 60.0 mL/min (>60); Globulin 2.9 g/dL (1.7-4.1); Glucose 136 mg/dL (80-110); HEMOLYSIS < 15 (0-50); Iron 39 ug/dL (37-170); Potassium 4.5 mmol/L (3.4-5.1); Sodium 140 mmol/L (137-145); Total Protein 6.7 g/dL (6.3-8.2)
[2020-03-09 11:24] LABS: Percent Iron Saturation 13 % (15-50); Total Iron Binding Capacity 301 ug/dL (265-497); Transferrin 235 mg/dL (206-381)
[2020-03-09 11:48] LABS: Ferritin 39 ng/mL (11-264)
[2020-03-09 11:48] LABS: Thyroid Stimulating Hormone < 0.015 uIU/mL (0.47-4.68)
[2020-03-09 12:19] LABS: Vitamin B12 572 pg/mL (239-931)
[2020-03-10 22:36] LABS: Free Kappa Lt Chains, Serum 31.4 mg/L (3.3-19.4); Free Lambda Lt Chains,Serum 23.1 mg/L (5.7-26.3)
[2020-03-11 14:18] LABS: Albumin 3.2 g/dL (2.9-4.4); Alpha-1-Globulin 0.3 g/dL (0.0-0.4); Alpha-2-Globulin 0.9 g/dL (0.4-1.0); Gamma Globulin 0.8 g/dL (0.4-1.8); Globulin Total 2.9 g/dL (2.2-3.9); Protein, Total 6.1 g/dL (6.0-8.5)
[2020-03-12 01:26] LABS: Methylmalonic Acid,Serum 230 nmol/L (0-378)
== END ==
PROVIDERS: Internal Medicine; PCP Family Medicine
DX: D50.9 Iron deficiency anemia, unspecified (principal); D47.2 Monoclonal gammopathy; E27.40 Unspecified adrenocortical insufficiency; I95.1 Orthostatic hypotension; E11.9 Type 2 diabetes mellitus without complications; R42 Dizziness and giddiness; R53.1 Weakness; E03.9 Hypothyroidism, unspecified; E53.8 Deficiency of other specified B group vitamins; I10 Essential (primary) hypertension; Z98.84 Bariatric surgery status
CPT/HCPCS: 36415; 72148; 80053; 82607; 82728; 82746; 82784; 83540; 83550; 83615; 83883; 83921; 84155; 84165; 84443; 85025; 85045; 86334; 86335; 99205; 99214; 99215

== ENCOUNTER → 2020-03-17 15:48 | Outpatient (CLI) | payer MEDICARE, OTHER, SELFPAY ==
--- NOTE | 2020-03-17 15:50 | DI.RAD.S_ITS ---
PROCEDURE: XR KNEE LT 3V INDICATIONS: Left knee pain TECHNIQUE: 3 views of the knee were acquired. COMPARISON: [facility], , KNEE 3V RIGHT, 09/25/2014, 10:32. FINDINGS: Bones: Three views of the left knee were performed. There is no fracture or dislocation. No joint space narrowing. No significant degenerative changes. Soft tissues: No joint effusion. No suspicious soft tissue calcifications. IMPRESSION: 1. No acute abnormality. 2. No significant degenerative changes. Dictated by: Abner Bernardo M.D. on 03/17/2020 at 16:25 Approved by: Abner Bernardo M.D. on 03/17/2020 at 16:26
== END ==
PROVIDERS: PCP Family Medicine; Referring Provider Family Medicine; Visit Provider Family Medicine
DX: M25.562 Pain in left knee (principal)
CPT/HCPCS: 73562

== ENCOUNTER → 2020-09-16 11:07 | Outpatient (CLI) | payer MEDICARE, OTHER, SELFPAY ==
[2020-09-16 12:14] LABS: Add Manual Diff / Slide Review NO; Basophils Absolute Auto 0 /uL (0-100); Basophils Percent Auto 0.7 % (0-2); Eosinophils Absolute Auto 300 /uL (0-450); Eosinophils Percent Auto 6.7 % (2-4); Hematocrit 37.6 % (36-46); Hemoglobin 12.3 g/dL (12.0-16.0); Lymphocytes Absolute Auto 1300 /uL (1100-4500); Lymphocytes Percent Auto 27.2 % (25-40); Mean Corpuscular HGB Conc 32.6 % (30-36); Mean Corpuscular Hemoglobin 31.3 PG (26-34); Mean Corpuscular Volume 95.9 fL (80-100); Monocytes Absolute Auto 400 /uL (0-900); Monocytes Percent Auto 8.2 % (3-14); Neutrophils Absolute Auto 2700 /uL (1500-7000); Neutrophils Percent Auto 57.2 % (50-75); Platelet Count 185 X10^3/uL (150-400); Red Blood Cell Count 3.92 X10^6/uL (4.0-5.2); Red Cell Distribution Width 15.2 % (11.6-14.8); White Blood Cell Count 4.8 X10^3/uL (4.5-11.0)
[2020-09-16 12:26] LABS: UR Morphine/Opiate cutoff 300 Positive (Negative); Ur Creatinine Normal (Normal); Ur Specific Gravity Normal (Normal); Urine Amphetamines Negative (Negative); Urine Barbiturates Negative (Negative); Urine Benzodiazepines Negative (Negative); Urine Cocaine Negative (Negative); Urine MDMA Negative (Negative); Urine Methadone Negative (Negative); Urine Methamphetamines Negative (Negative); Urine Oxycodone Negative (Negative); Urine Phencyclidine Negative (Negative); Urine Tetrahydrocannabinol Negative (Negative); Urine Tricyclic Antidepressant Negative (Negative); Urine pH Normal (Normal)
[2020-09-16 12:29] LABS: Alanine Aminotransferase 15 IU/L (<35); Albumin 3.6 g/dL (3.5-5.0); Albumin Globulin Ratio 1.4 (1.0-2.8); Alkaline Phosphatase 67 U/L (38-126); Aspartate Aminotransferase 21 IU/L (14-36); BUN Creatinine Ratio 28.2 (6-22); Bilirubin Total 0.2 mg/dL (0.2-1.3); Blood Urea Nitrogen 24 mg/dL (7-17); Calcium 9.3 mg/dL (8.4-10.2); Carbon Dioxide 19 mmol/L (22-32); Chloride 113 mmol/L (98-107); Estimated Glomerular Filt Rate > 60.0 mL/min (>60); Globulin 2.6 g/dL (1.7-4.1); Glucose 134 mg/dL (80-110); HEMOLYSIS 17 (0-50); Magnesium 2.1 mg/dL (1.6-2.3); Potassium 4.9 mmol/L (3.4-5.1); Sodium 137 mmol/L (137-145); Total Protein 6.2 g/dL (6.3-8.2)
[2020-09-16 12:59] LABS: TSH w/ Reflex to FT4 < 0.02 uIU/mL (0.47-4.68)
[2020-09-16 17:15] LABS: Free T4, Direct Thyroxine 1.54 ng/dL (0.78-2.19)
== END ==
PROVIDERS: PCP Family Medicine; Referring Provider Family Medicine; Visit Provider Family Medicine
DX: B37.0 Candidal stomatitis (principal); E11.9 Type 2 diabetes mellitus without complications; I10 Essential (primary) hypertension; G89.4 Chronic pain syndrome; G47.00 Insomnia, unspecified; M79.662 Pain in left lower leg; E78.2 Mixed hyperlipidemia; M43.16 Spondylolisthesis, lumbar region; M48.061 Spinal stenosis, lumbar region without neurogenic claudication; M54.16 Radiculopathy, lumbar region; M70.62 Trochanteric bursitis, left hip; E03.9 Hypothyroidism, unspecified; R42 Dizziness and giddiness; R53.1 Weakness
CPT/HCPCS: 36415; 80053; 80305; 83036; 83735; 84439; 84443; 85025

== ENCOUNTER → 2021-01-10 14:27 | Outpatient (CLI) | payer MEDICARE, OTHER, SELFPAY ==
[2021-01-10 15:51] LABS: Add Manual Diff / Slide Review NO; Basophils Absolute Auto 0 /uL (0-100); Basophils Percent Auto 0.6 % (0-2); Eosinophils Absolute Auto 300 /uL (0-450); Eosinophils Percent Auto 4.9 % (2-4); Hematocrit 38.1 % (36-46); Hemoglobin 12.3 g/dL (12.0-16.0); Lymphocytes Absolute Auto 1500 /uL (1100-4500); Lymphocytes Percent Auto 21.8 % (25-40); Mean Corpuscular HGB Conc 32.3 % (30-36); Mean Corpuscular Hemoglobin 30.6 PG (26-34); Mean Corpuscular Volume 94.5 fL (80-100); Monocytes Absolute Auto 400 /uL (0-900); Monocytes Percent Auto 5.9 % (3-14); Neutrophils Absolute Auto 4500 /uL (1500-7000); Neutrophils Percent Auto 66.8 % (50-75); Platelet Count 304 X10^3/uL (150-400); Red Blood Cell Count 4.03 X10^6/uL (4.0-5.2); Red Cell Distribution Width 15.3 % (11.6-14.8); White Blood Cell Count 6.7 X10^3/uL (4.5-11.0)
[2021-01-10 15:55] LABS: Alanine Aminotransferase 17 IU/L (<35); Albumin 4.2 g/dL (3.5-5.0); Albumin Globulin Ratio 1.6 (1.0-2.8); Alkaline Phosphatase 68 U/L (38-126); Aspartate Aminotransferase 21 IU/L (14-36); Bilirubin Total 0.1 mg/dL (0.2-1.3); Blood Urea Nitrogen 17 mg/dL (7-17); Calcium 9.9 mg/dL (8.4-10.2); Carbon Dioxide 22 mmol/L (22-32); Chloride 110 mmol/L (98-107); Estimated Glomerular Filt Rate > 60.0 mL/min (>60); Globulin 2.7 g/dL (1.7-4.1); Glucose 175 mg/dL (80-110); HEMOLYSIS < 15 (0-50); Potassium 5.3 mmol/L (3.4-5.1); Sodium 139 mmol/L (137-145); Total Protein 6.9 g/dL (6.3-8.2)
[2021-01-10 16:19] LABS: Hemoglobin A1C% w Est Avg Glu 7.3 % (4.0-6.0)
[2021-01-10 16:25] LABS: TSH w/ Reflex to FT4 0.26 uIU/mL (0.47-4.68)
[2021-01-10 16:58] LABS: Free T4, Direct Thyroxine 1.49 ng/dL (0.78-2.19)
[2021-01-11 07:10] LABS: RPR Screen Non Reactive (Non Reactive)
== END ==
PROVIDERS: PCP Family Medicine; Referring Provider Family Medicine; Visit Provider Family Medicine
DX: E78.2 Mixed hyperlipidemia (principal); B37.0 Candidal stomatitis; E11.9 Type 2 diabetes mellitus without complications; E03.9 Hypothyroidism, unspecified; I10 Essential (primary) hypertension
CPT/HCPCS: 36415; 80053; 83036; 84439; 84443; 85025; 86592

== ENCOUNTER → 2021-04-22 10:51 | Outpatient (CLI) | payer MEDICARE, OTHER, SELFPAY ==
[2021-04-22 12:39] LABS: Alanine Aminotransferase 21 IU/L (<35); Albumin 4.1 g/dL (3.5-5.0); Albumin Globulin Ratio 1.4 (1.0-2.8); Alkaline Phosphatase 57 U/L (38-126); Aspartate Aminotransferase 29 IU/L (14-36); BUN Creatinine Ratio 25.3 (6-22); Bilirubin Total 0.3 mg/dL (0.2-1.3); Blood Urea Nitrogen 22 mg/dL (7-17); Calcium 9.8 mg/dL (8.4-10.2); Carbon Dioxide 25 mmol/L (22-32); Chloride 107 mmol/L (98-107); Estimated Glomerular Filt Rate > 60.0 mL/min (>60); Globulin 2.9 g/dL (1.7-4.1); Glucose 155 mg/dL (80-110); HEMOLYSIS < 15 (0-50); Potassium 4.9 mmol/L (3.4-5.1); Sodium 139 mmol/L (137-145)
[2021-04-22 12:40] LABS: Hemoglobin A1C% w Est Avg Glu 8.5 % (4.0-6.0)
[2021-04-22 13:26] LABS: Vitamin B12 Reflex MMA if <400 610 pg/mL (239-931)
[2021-04-22 14:06] LABS: Free T4, Direct Thyroxine 0.57 ng/dL (0.78-2.19)
[2021-05-03 15:04] LABS: Vitamin B6 6.1 ug/L (2.0-32.8)
== END ==
PROVIDERS: PCP Family Medicine; Referring Provider Family Medicine; Visit Provider Family Medicine
DX: E11.9 Type 2 diabetes mellitus without complications (principal); E03.9 Hypothyroidism, unspecified; I10 Essential (primary) hypertension; E78.2 Mixed hyperlipidemia; B37.0 Candidal stomatitis
CPT/HCPCS: 36415; 80053; 82607; 83036; 84207; 84439; 84443

== ENCOUNTER → 2022-06-01 14:45 | Outpatient (CLI) | payer MEDICARE, OTHER, SELFPAY ==
[2022-06-01 15:52] LABS: Add Manual Diff / Slide Review NO; Basophils Absolute Auto 0 /uL (0-100); Basophils Percent Auto 0.5 % (0-2); Eosinophils Absolute Auto 200 /uL (0-450); Eosinophils Percent Auto 2.5 % (2-4); Hematocrit 35.5 % (36-46); Hemoglobin 11.5 g/dL (12.0-16.0); Lymphocytes Absolute Auto 1800 /uL (1100-4500); Mean Corpuscular HGB Conc 32.5 % (30-36); Mean Corpuscular Hemoglobin 29.5 PG (26-34); Mean Corpuscular Volume 90.8 fL (80-100); Monocytes Absolute Auto 500 /uL (0-900); Monocytes Percent Auto 6.5 % (3-14); Neutrophils Absolute Auto 5000 /uL (1500-7000); Neutrophils Percent Auto 66.5 % (50-75); Platelet Count 242 X10^3/uL (150-400); Red Blood Cell Count 3.91 X10^6/uL (4.0-5.2); Red Cell Distribution Width 16.8 % (11.6-14.8); White Blood Cell Count 7.6 X10^3/uL (4.5-11.0)
[2022-06-01 16:09] LABS: Alanine Aminotransferase 17 IU/L (<35); Albumin 3.7 g/dL (3.5-5.0); Albumin Globulin Ratio 1.1 (1.0-2.8); Alkaline Phosphatase 66 U/L (38-126); Aspartate Aminotransferase 26 IU/L (14-36); BUN Creatinine Ratio 19.7 (6-22); Bilirubin Total 0.3 mg/dL (0.2-1.3); Blood Urea Nitrogen 15 mg/dL (7-17); Calcium 8.8 mg/dL (8.4-10.2); Carbon Dioxide 26 mmol/L (22-32); Chloride 105 mmol/L (98-107); Cholesterol 221 mg/dL (140-199); Estimated Glomerular Filt Rate > 60 mL/min (>60); Globulin 3.3 g/dL (1.7-4.1); Glucose 232 mg/dL (80-110); HDL Cholesterol 49 mg/dL (40-60); HEMOLYSIS < 15 (0-50); LDL Cholesterol Calculated 131 mg/dL (<100); Potassium 4.1 mmol/L (3.4-5.1); Sodium 140 mmol/L (137-145); Triglycerides 207 mg/dL (35-150)
[2022-06-01 16:45] LABS: TSH w/ Reflex to FT4 0.58 uIU/mL (0.47-4.68)
[2022-06-01 17:03] LABS: Creatinine Urine Random 196.6 mg/dL
[2022-06-01 17:08] LABS: Microalbumi Creatinin Ratio Ur 10.1 ug/mg CR (<30)
[2022-06-01 18:46] LABS: Hemoglobin A1C% w Est Avg Glu > 14.0 % (4.0-6.0)
== END ==
PROVIDERS: PCP Family Medicine; Referring Provider Family Medicine; Visit Provider Family Medicine
DX: E03.9 Hypothyroidism, unspecified (principal); E11.9 Type 2 diabetes mellitus without complications; E78.2 Mixed hyperlipidemia; G89.29 Other chronic pain; G89.4 Chronic pain syndrome; I10 Essential (primary) hypertension; M54.59 Other low back pain
CPT/HCPCS: 36415; 80053; 80061; 82043; 82570; 83036; 84443; 85025

== ENCOUNTER → 2022-09-22 10:54 | Outpatient (CLI) | payer MEDICARE, OTHER, SELFPAY ==
[2022-09-22 12:16] LABS: Add Manual Diff / Slide Review NO; Basophils Absolute Auto 0 /uL (0-100); Basophils Percent Auto 0.6 % (0-2); Eosinophils Absolute Auto 200 /uL (0-450); Eosinophils Percent Auto 2.4 % (2-4); Hematocrit 37.3 % (36-46); Hemoglobin 11.7 g/dL (12.0-16.0); Lymphocytes Absolute Auto 2100 /uL (1100-4500); Mean Corpuscular HGB Conc 31.3 % (30-36); Mean Corpuscular Volume 76.6 fL (80-100); Monocytes Absolute Auto 700 /uL (0-900); Monocytes Percent Auto 11.1 % (3-14); Neutrophils Absolute Auto 3500 /uL (1500-7000); Neutrophils Percent Auto 53.9 % (50-75); Platelet Count 267 X10^3/uL (150-400); Red Blood Cell Count 4.87 X10^6/uL (4.0-5.2); Red Cell Distribution Width 17.1 % (11.6-14.8); White Blood Cell Count 6.5 X10^3/uL (4.5-11.0)
[2022-09-22 12:38] LABS: Alanine Aminotransferase 21 IU/L (<35); Albumin Globulin Ratio 1.2 (1.0-2.8); Alkaline Phosphatase 68 U/L (38-126); Aspartate Aminotransferase 29 IU/L (14-36); BUN Creatinine Ratio 14.3 (6-22); Bilirubin Total 0.2 mg/dL (0.2-1.3); Blood Urea Nitrogen 19 mg/dL (7-17); Calcium 9.3 mg/dL (8.4-10.2); Carbon Dioxide 20 mmol/L (22-32); Chloride 104 mmol/L (98-107); Cholesterol 218 mg/dL (140-199); Estimated Glomerular Filt Rate 41 mL/min (>60); Globulin 3.4 g/dL (1.7-4.1); Glucose 173 mg/dL (80-110); HDL Cholesterol 48 mg/dL (40-60); HEMOLYSIS < 15 (0-50); LDL Cholesterol Calculated 139 mg/dL (<100); Potassium 4.1 mmol/L (3.4-5.1); Sodium 137 mmol/L (137-145); Total Protein 7.4 g/dL (6.3-8.2); Triglycerides 156 mg/dL (35-150)
[2022-09-22 13:04] LABS: TSH w/ Reflex to FT4 0.38 uIU/mL (0.47-4.68)
[2022-09-23 06:02] LABS: Labcorp Hemoglobin (Hb) A1c 8.6 % (4.8-5.6)
== END ==
PROVIDERS: PCP Family Medicine; Referring Provider Family Medicine; Visit Provider Family Medicine
DX: D47.2 Monoclonal gammopathy (principal); I10 Essential (primary) hypertension; E78.2 Mixed hyperlipidemia; E03.9 Hypothyroidism, unspecified; E11.9 Type 2 diabetes mellitus without complications
CPT/HCPCS: 36415; 80053; 80061; 83036; 84439; 84443; 85025

== ENCOUNTER → 2023-05-28 10:53 | Outpatient (CLI) | payer MEDICARE, OTHER, SELFPAY ==
[2023-05-28 12:09] LABS: Hemoglobin A1C% w Est Avg Glu 10.5 % (4.0-6.0)
[2023-05-28 12:20] LABS: Alanine Aminotransferase 20 IU/L (<35); Albumin 3.6 g/dL (3.5-5.0); Albumin Globulin Ratio 1.1 (1.0-2.8); Alkaline Phosphatase 85 U/L (38-126); Aspartate Aminotransferase 22 IU/L (14-36); BUN Creatinine Ratio 28.8 (6-22); Bilirubin Total 0.3 mg/dL (0.2-1.3); Blood Urea Nitrogen 23 mg/dL (7-17); Calcium 9.3 mg/dL (8.4-10.2); Carbon Dioxide 21 mmol/L (22-32); Chloride 105 mmol/L (98-107); Estimated Glomerular Filt Rate > 60 mL/min (>60); Globulin 3.3 g/dL (1.7-4.1); Glucose 359 mg/dL (80-110); HEMOLYSIS < 15 (0-50); Potassium 5.2 mmol/L (3.4-5.1); Sodium 134 mmol/L (137-145); Total Protein 6.9 g/dL (6.3-8.2)
== END ==
PROVIDERS: PCP Family Medicine; Referring Provider Family Medicine; Visit Provider Family Medicine
DX: E11.9 Type 2 diabetes mellitus without complications (principal); E78.2 Mixed hyperlipidemia; I10 Essential (primary) hypertension; G89.4 Chronic pain syndrome
CPT/HCPCS: 36415; 80053; 83036

== ENCOUNTER → 2023-10-25 10:46 | Outpatient (CLI) | payer MEDICARE, OTHER, SELFPAY ==
[2023-10-25 11:35] LABS: Add Manual Diff / Slide Review NO; Basophils Absolute Auto 0 /uL (0-100); Basophils Percent Auto 0.5 % (0-2); Eosinophils Absolute Auto 300 /uL (0-450); Eosinophils Percent Auto 4.2 % (2-4); Hematocrit 41.5 % (36-46); Lymphocytes Absolute Auto 2000 /uL (1100-4500); Lymphocytes Percent Auto 24.2 % (25-40); Mean Corpuscular HGB Conc 31.3 % (30-36); Mean Corpuscular Hemoglobin 26.7 PG (26-34); Mean Corpuscular Volume 85.5 fL (80-100); Monocytes Absolute Auto 500 /uL (0-900); Monocytes Percent Auto 6.3 % (3-14); Neutrophils Absolute Auto 5400 /uL (1500-7000); Neutrophils Percent Auto 64.8 % (50-75); Platelet Count 210 X10^3/uL (150-400); Red Blood Cell Count 4.86 X10^6/uL (4.0-5.2); Red Cell Distribution Width 20.7 % (11.6-14.8); White Blood Cell Count 8.4 X10^3/uL (4.5-11.0)
[2023-10-25 11:42] LABS: Hemoglobin A1C% w Est Avg Glu 9.2 % (4.0-6.0)
[2023-10-25 11:44] LABS: Alanine Aminotransferase 44 IU/L (<35); Albumin 3.9 g/dL (3.5-5.0); Albumin Globulin Ratio 1.4 (1.0-2.8); Alkaline Phosphatase 74 U/L (38-126); Aspartate Aminotransferase 36 IU/L (14-36); BUN Creatinine Ratio 29.2 (6-22); Bilirubin Total 0.3 mg/dL (0.2-1.3); Blood Urea Nitrogen 26 mg/dL (7-17); Calcium 9.1 mg/dL (8.4-10.2); Carbon Dioxide 22 mmol/L (22-32); Chloride 106 mmol/L (98-107); Cholesterol 138 mg/dL (140-199); Estimated Glomerular Filt Rate > 60 mL/min (>60); Globulin 2.7 g/dL (1.7-4.1); Glucose 363 mg/dL (80-110); HDL Cholesterol 51 mg/dL (40-60); HEMOLYSIS < 15 (0-50); LDL Cholesterol Calculated 31 mg/dL (<100); Sodium 136 mmol/L (137-145); Total Protein 6.6 g/dL (6.3-8.2); Triglycerides 278 mg/dL (35-150)
[2023-10-25 11:45] LABS: HEMOLYSIS < 15 (0-50); Iron 91 ug/dL (37-170); Potassium 5.6 mmol/L (3.4-5.1)
[2023-10-25 11:47] LABS: Anisocytosis 1+
[2023-10-25 11:56] LABS: Percent Iron Saturation 28 % (15-50); Total Iron Binding Capacity 330 ug/dL (265-497); Transferrin 263 mg/dL (206-381)
[2023-10-25 12:14] LABS: TSH w/ Reflex to FT4 < 0.02 uIU/mL (0.47-4.68)
[2023-10-25 12:40] LABS: Free T4, Direct Thyroxine 2.51 ng/dL (0.78-2.19)
[2023-10-25 15:53] LABS: Microalbumin Urine Random < 0.6 mg/dL (0-1.6)
[2023-10-26 04:09] LABS: Apolipoprotein B 73 mg/dL (<90)
== END ==
PROVIDERS: PCP Family Medicine; Referring Provider Family Medicine; Visit Provider Family Medicine
DX: G47.00 Insomnia, unspecified (principal); E11.9 Type 2 diabetes mellitus without complications; E03.9 Hypothyroidism, unspecified; I10 Essential (primary) hypertension; G89.4 Chronic pain syndrome; M48.061 Spinal stenosis, lumbar region without neurogenic claudication; M54.9 Dorsalgia, unspecified; E78.2 Mixed hyperlipidemia; D64.9 Anemia, unspecified; Z98.1 Arthrodesis status
CPT/HCPCS: 36415; 80053; 80061; 82043; 82172; 82570; 83036; 83540; 83550; 84439; 84443; 85025

== ENCOUNTER → 2024-01-16 11:39 | Outpatient (CLI) | payer MEDICARE, OTHER, SELFPAY ==
[2024-01-16 12:32] LABS: Alanine Aminotransferase 21 IU/L (<35); Albumin 3.8 g/dL (3.5-5.0); Albumin Globulin Ratio 1.2 (1.0-2.8); Alkaline Phosphatase 69 U/L (38-126); Aspartate Aminotransferase 28 IU/L (14-36); Bilirubin Total 0.5 mg/dL (0.2-1.3); Blood Urea Nitrogen 21 mg/dL (7-17); Calcium 9.5 mg/dL (8.4-10.2); Carbon Dioxide 23 mmol/L (22-32); Chloride 104 mmol/L (98-107); Cholesterol 142 mg/dL (140-199); Estimated Glomerular Filt Rate > 60 mL/min (>60); Globulin 3.1 g/dL (1.7-4.1); Glucose 343 mg/dL (80-110); HDL Cholesterol 38 mg/dL (40-60); LDL Cholesterol Calculated 52 mg/dL (<100); Sodium 135 mmol/L (137-145); Total Protein 6.9 g/dL (6.3-8.2); Triglycerides 260 mg/dL (35-150)
[2024-01-16 12:36] LABS: HEMOLYSIS 53 (0-50); Potassium 5.7 mmol/L (3.4-5.1)
[2024-01-16 12:47] LABS: Hemoglobin A1C% w Est Avg Glu 10.1 % (4.0-6.0)
[2024-01-16 13:36] LABS: TSH w/ Reflex to FT4 < 0.02 uIU/mL (0.47-4.68)
[2024-01-16 14:34] LABS: Free T4, Direct Thyroxine 1.66 ng/dL (0.78-2.19)
== END ==
PROVIDERS: PCP Family Medicine; Referring Provider Family Medicine; Visit Provider Family Medicine
DX: E11.9 Type 2 diabetes mellitus without complications (principal); D47.2 Monoclonal gammopathy; E03.9 Hypothyroidism, unspecified; E78.2 Mixed hyperlipidemia; I10 Essential (primary) hypertension; M54.59 Other low back pain
CPT/HCPCS: 36415; 80053; 80061; 83036; 84439; 84443

== ENCOUNTER → 2024-04-14 09:20 | Outpatient (CLI) | payer MEDICARE, OTHER, SELFPAY ==
[2024-04-14 10:15] LABS: Hemoglobin A1C% w Est Avg Glu 9.3 % (4.0-6.0)
[2024-04-14 11:09] LABS: TSH w/ Reflex to FT4 3.55 uIU/mL (0.47-4.68)
[2024-04-14 11:30] LABS: Alanine Aminotransferase 36 IU/L (<35); Albumin 4.1 g/dL (3.5-5.0); Albumin Globulin Ratio 1.4 (1.0-2.8); Alkaline Phosphatase 95 U/L (38-126); Aspartate Aminotransferase 51 IU/L (14-36); Bilirubin Total 0.4 mg/dL (0.2-1.3); Blood Urea Nitrogen 18 mg/dL (7-17); Carbon Dioxide 17 mmol/L (22-32); Chloride 109 mmol/L (98-107); Estimated Glomerular Filt Rate 54 mL/min (>60); Globulin 2.9 g/dL (1.7-4.1); Glucose 196 mg/dL (80-110); HEMOLYSIS 26 (0-50); Sodium 138 mmol/L (137-145)
== END ==
LOC: LAB 09:21
PROVIDERS: PCP Family Medicine; Referring Provider Family Medicine; Visit Provider Family Medicine
DX: E11.9 Type 2 diabetes mellitus without complications (principal); E03.9 Hypothyroidism, unspecified; M48.061 Spinal stenosis, lumbar region without neurogenic claudication; I10 Essential (primary) hypertension; E78.2 Mixed hyperlipidemia
CPT/HCPCS: 36415; 80053; 83036; 84443

== ENCOUNTER → 2024-09-16 14:16 | Outpatient (CLI) | payer MEDICARE, OTHER, SELFPAY ==
[2024-09-16 16:46] LABS: Hemoglobin A1C% w Est Avg Glu 8.4 % (4.0-6.0)
[2024-09-16 17:00] LABS: Alanine Aminotransferase 18 IU/L (<35); Albumin Globulin Ratio 1.5 (1.0-2.8); Alkaline Phosphatase 52 U/L (38-126); Aspartate Aminotransferase 29 IU/L (14-36); BUN Creatinine Ratio 23.5 (6-22); Bilirubin Total 0.4 mg/dL (0.2-1.3); Blood Urea Nitrogen 19 mg/dL (7-17); Calcium 9.6 mg/dL (8.4-10.2); Carbon Dioxide 17 mmol/L (22-32); Chloride 111 mmol/L (98-107); Cholesterol 168 mg/dL (140-199); Estimated Glomerular Filt Rate > 60 mL/min (>60); Globulin 2.7 g/dL (1.7-4.1); Glucose 135 mg/dL (70-99); HDL Cholesterol 52 mg/dL (40-60); HEMOLYSIS 24 (0-50); LDL Cholesterol Calculated 76 mg/dL (<100); Sodium 140 mmol/L (137-145); Total Protein 6.7 g/dL (6.3-8.2); Triglycerides 199 mg/dL (35-150)
[2024-09-16 17:26] LABS: TSH w/ Reflex to FT4 0.18 uIU/mL (0.47-4.68)
[2024-09-16 17:59] LABS: Free T4, Direct Thyroxine 0.87 ng/dL (0.78-2.19)
== END ==
PROVIDERS: PCP Family Medicine; Referring Provider Family Medicine; Visit Provider Family Medicine
DX: E11.9 Type 2 diabetes mellitus without complications (principal); D47.2 Monoclonal gammopathy; I10 Essential (primary) hypertension; G62.9 Polyneuropathy, unspecified; E78.2 Mixed hyperlipidemia; Z98.1 Arthrodesis status; M48.061 Spinal stenosis, lumbar region without neurogenic claudication; M43.16 Spondylolisthesis, lumbar region; M54.16 Radiculopathy, lumbar region
CPT/HCPCS: 36415; 80053; 80061; 83036; 84439; 84443

== ENCOUNTER 2024-09-26 16:23 | Emergency (ER) | payer MEDICARE, OTHER, SELFPAY ==
[2024-09-26 16:45] VITALS: BP 102/61; PULSE 91; RESP 17; TEMP 36.3; O2SAT 98; BMI 24.0
[2024-09-26 17:11] LABS: Add Manual Diff / Slide Review NO; Basophils Absolute Auto 100 /uL (0-100); Basophils Percent Auto 0.9 % (0-2); Eosinophils Absolute Auto 300 /uL (0-450); Hematocrit 42.3 % (36-46); Hemoglobin 13.9 g/dL (12.0-16.0); Lymphocytes Absolute Auto 2100 /uL (1100-4500); Lymphocytes Percent Auto 24.2 % (25-40); Mean Corpuscular HGB Conc 32.8 % (30-36); Mean Corpuscular Hemoglobin 30.8 PG (26-34); Mean Corpuscular Volume 93.7 fL (80-100); Monocytes Absolute Auto 500 /uL (0-900); Monocytes Percent Auto 5.9 % (3-14); Neutrophils Absolute Auto 5700 /uL (1500-7000); Platelet Count 276 X10^3/uL (150-400); Red Blood Cell Count 4.51 X10^6/uL (4.0-5.2); Red Cell Distribution Width 17.8 % (11.6-14.8); White Blood Cell Count 8.7 X10^3/uL (4.5-11.0)
[2024-09-26 17:26] LABS: Alanine Aminotransferase 15 IU/L (<35); Albumin 4.5 g/dL (3.5-5.0); Albumin Globulin Ratio 1.4 (1.0-2.8); Alkaline Phosphatase 60 U/L (38-126); Aspartate Aminotransferase 27 IU/L (14-36); BUN Creatinine Ratio 14.2 (6-22); Bilirubin Total 0.5 mg/dL (0.2-1.3); Blood Urea Nitrogen 18 mg/dL (7-17); Calcium 9.7 mg/dL (8.4-10.2); Carbon Dioxide 14 mmol/L (22-32); Chloride 108 mmol/L (98-107); Estimated Glomerular Filt Rate 43 mL/min (>60); Globulin 3.3 g/dL (1.7-4.1); Glucose 165 mg/dL (70-99); HEMOLYSIS 22 (0-50); Lipase 47 U/L (23-300); Potassium 4.1 mmol/L (3.4-5.1); Sodium 137 mmol/L (137-145); Total Protein 7.8 g/dL (6.3-8.2)
[2024-09-26 17:54] LABS: Bacteria Urine Many (>30); Hyaline Casts Urine 0-1/LPF; Mucus Urine 2+ (Negative); RBC Urine None Seen (0-5/HPF); Squamous Epithelial Cell Urine 0-1 /HPF (0-5/HPF); Transitional Epi Cells Urine 0-1/HPF (0-5/HPF); Urine Volume Low Vol <10mL unspun; WBC Urine 10-30/HPF (0-5/HPF)
[2024-09-26 17:55] LABS: Culture Indicated Urine Specimen Cultured
== END 2024-09-26 18:58 | disposition left against medical advice (07) ==
PROVIDERS: Student in an Organized Health Care Education/Training Program; Emergency Provider Emergency Medicine; PCP Family Medicine
DX: R11.2 Nausea with vomiting, unspecified (principal)
CPT/HCPCS: 36415; 80053; 81003; 81015; 83690; 85025; 87077; 87086; 87186; 99283

== ENCOUNTER 2024-09-29 16:02 | Emergency (ER) | payer MEDICARE, OTHER, SELFPAY ==
[2024-09-29] VITALS (12 sets, daily range): BP systolic 111–150; BP diastolic 61–77; PULSE 65–101; RESP 12–24; TEMP 36.6; O2SAT 96–100; BMI 29.2
[2024-09-29 17:18] LABS: Add Manual Diff / Slide Review NO; Basophils Absolute Auto 0 /uL (0-100); Basophils Percent Auto 0.7 % (0-2); Eosinophils Absolute Auto 400 /uL (0-450); Eosinophils Percent Auto 7.2 % (2-4); Hematocrit 42.1 % (36-46); Hemoglobin 13.6 g/dL (12.0-16.0); Lymphocytes Absolute Auto 1800 /uL (1100-4500); Lymphocytes Percent Auto 29.7 % (25-40); Mean Corpuscular HGB Conc 32.4 % (30-36); Mean Corpuscular Hemoglobin 30.7 PG (26-34); Mean Corpuscular Volume 94.7 fL (80-100); Monocytes Absolute Auto 400 /uL (0-900); Monocytes Percent Auto 6.8 % (3-14); Neutrophils Absolute Auto 3400 /uL (1500-7000); Neutrophils Percent Auto 55.6 % (50-75); Platelet Count 235 X10^3/uL (150-400); Red Blood Cell Count 4.44 X10^6/uL (4.0-5.2); Red Cell Distribution Width 18.2 % (11.6-14.8); White Blood Cell Count 6.1 X10^3/uL (4.5-11.0)
[2024-09-29 17:28] LABS: Lactate (Lactic Acid) 1.7 mmol/L (0.7-2.1)
[2024-09-29 17:29] LABS: Alanine Aminotransferase 21 IU/L (<35); Albumin 4.4 g/dL (3.5-5.0); Albumin Globulin Ratio 1.3 (1.0-2.8); Alkaline Phosphatase 65 U/L (38-126); Aspartate Aminotransferase 38 IU/L (14-36); BUN Creatinine Ratio 18.6 (6-22); Bilirubin Total 0.3 mg/dL (0.2-1.3); Blood Urea Nitrogen 16 mg/dL (7-17); Calcium 9.4 mg/dL (8.4-10.2); Carbon Dioxide 20 mmol/L (22-32); Chloride 110 mmol/L (98-107); Estimated Glomerular Filt Rate > 60 mL/min (>60); Globulin 3.3 g/dL (1.7-4.1); Glucose 179 mg/dL (70-99); HEMOLYSIS 16 (0-50); Lipase 85 U/L (23-300); Potassium 4.9 mmol/L (3.4-5.1); Sodium 140 mmol/L (137-145); Total Protein 7.7 g/dL (6.3-8.2)
--- NOTE | 2024-09-29 18:47 | PC.NURSE ---
Pt states that she has 3/10 abd pain accompanied by nausea. A&Ox4.
[2024-09-29 19:48] LABS: Appearance Urine UA SL CLOUDY; Bilirubin Urine UA NEGATIVE (NEGATIVE); Color Urine UA YELLOW; Glucose Urine UA 3+ g/dL (Negative); Ketones Urine UA NEGATIVE (NEGATIVE); Leukocyte Esterase Urine UA 1+ (NEGATIVE); Nitrite Urine UA POSITIVE (Negative); Occult Blood Urine UA TRACE-INTACT (Negative); Protein Urine UA NEGATIVE (Negative); Urobilinogen Urine UA 0.2 E.U./dL (0.2)
[2024-09-29 19:50] LABS: pH Urine UA 5.5 (4.5-8.0)
--- NOTE | 2024-09-29 19:51 | ED.NAVMDI ---
HPI - Nausea/Vomiting/Diarrhea General Chief complaint: Nausea/Vomiting/Diarrhea Stated complaint: Abdominal pain, nauseous Time Seen by Provider: 09/29/24 19:16 Source: patient and family Mode of arrival: Wheelchair History of Present Illness HPI Narrative: 79-year-old female with history of urine infections, last admitted for UTI 2 years ago, last outpatient treated a proximally 10 months ago, lives in [facility], now with nausea and vomiting, central abdominal discomfort, no painful or frequent urination but concerned that she might have another urine infection. No cough shortness of breath or chest pain. No sore throat, headache, sinus pain. Related Data Home Medications Medication Instructions Recorded Confirmed Diabetic Shoes 1 pkg miscellaneous DIRECTED 01/14/18 09/16/24 Previous Rx's Medication Instructions Recorded Disabled Parking Permit #1 ea 11/12/19 Four wheeled walker #1 ea 05/07/20 Parking Permit... 1 unit Not Applicable .continuous 07/05/20 #1 unit lancets #100 ea 05/23/22 albuterol sulfate 90 mcg/actuation 2 puff inhalation Q6H PRN 06/01/22 aerosol inhaler shortness of breath or wheezing #8.5 grams flash glucose sensor kit #1 ea 06/30/22 (freeStyle Young 2 sens freestyle reader #2 #1 ea 06/30/22 naloxone 4 mg/actuation nasal 4 mg intranasal Q3M PRN opioid 07/27/23 spray (Narcan) overdose #2 ea levetiracetam 750 mg tablet 1,500 mg (2 x 750 mg) PO Q12H #360 09/03/23 tabs blood-glucose meter #1 ea 01/21/24 sertraline 100 mg tablet (Zoloft) 100 mg PO DAILY #90 tabs 01/21/24 empagliflozin 25 mg tablet 25 mg PO DAILY #90 tabs 09/16/24 (Jardiance) hydrocodone 5 mg-acetaminophen 325 1 tab PO BID PRN pain #60 tabs 09/16/24 mg tablet levothyroxine 175 mcg tablet 175 mcg PO DAILY #90 tabs 09/16/24 semaglutide 2 mg/dose (8 mg/3 mL) 2 mg (0.75 mL) SUBCUT QWEEK #3 mL 09/16/24 subcutaneous pen injector (Ozempic) cefdinir 300 mg capsule 300 mg PO BID 10 days #20 caps 09/29/24 cefuroxime axetil 500 mg tablet 500 mg PO BID #20 tabs 09/29/24 Allergies Allergy/AdvReac Type Severity Reaction Status Date / Time metformin [METFORMIN] Allergy Severe SWELLING Verified 09/29/24 16:10 amoxicillin [From AUGMENTIN] AdvReac Mild RASH Verified 09/29/24 16:10 clavulanic acid AdvReac Mild RASH Verified 09/29/24 16:10 [From AUGMENTIN] Patient History Medical History (Updated 09/29/24 @ 21:21 by Jamison Araujo MD) Exertional dyspnea Vertigo MGUS (monoclonal gammopathy of unknown significance) Bilateral calf pain Insomnia Chronic pain syndrome Left knee pain TIA (transient ischemic attack) Adrenal insufficiency Abdominal pain Seizure disorder Thrush Foraminal stenosis of lumbar region Facet arthropathy, lumbosacral Closed left fibular fracture Vomiting Dehydration Gastrointestinal bleeding Periumbilical hernia Loosening of hardware in spine Lupus (~1999) Restless leg syndrome (~1989) Migraines (~1989) Headache (~1989) Neuropathy (~2008) Fractures (~2011) Foot pain (~2010) Chronic back pain (~2009) Mumps Measles Chicken pox Painful menstrual periods (~1978) Ovarian cyst (~1999) History of irregular menstrual cycles (~1989) Gastric ulcer (~1991) Hyperthyroidism (~2004) Hypothyroidism (06/05/17) Breast pain (05/17/15) Knee pain (06/15/14) Edema (06/15/14) Generalized weakness Encounter for intravenous line placement Postoperative wound infection Diabetes Lupus Contusion of right foot Bronchitis UTI (urinary tract infection) Surgical History History of fusion of lumbar spine Hx of resection of stomach S/P foot surgery, right Gastric bypass status for obesity Status post lumbar spinal fusion Family History Grandfather No problems noted. Grandmother No problems noted. Mother No problems noted. Son Diabetes mellitus Social History marital status: household members: spouse and children alcohol intake: never substance use type: does not use alcohol intake frequency: other Exam Narrative Exam Narrative: GENERAL: Well-developed patient, in mild distress. HEAD: Atraumatic. Normocephalic. EYES: Pupils equal round and reactive. Extraocular motions intact. No scleral icterus. No injection or drainage. ENT: Nose without bleeding, purulent drainage. Throat without erythema, tonsillar hypertrophy or exudate. Airway patent. NECK: Trachea midline. Non tender CARDIOVASCULAR: Regular rate and rhythm without murmurs, gallops, or rubs. RESPIRATORY: Clear to auscultation. Breath sounds equal bilaterally. No wheezes, rales, or rhonchi. GASTROINTESTINAL: Abdomen soft, non-tender, nondistended. Well-healed upper central vertical scar from gastric remote surgery noncancerous. No obvious incisional hernias. EXTREMITIES: No edema or joint tenderness. BACK: Nontender without deformity or crepitance. No flank tenderness. NEURO: AOx3. Motor functions grossly nonfocal. SKIN: No rash or erythema of visible areas Initial Vital Signs Initial Vital Signs: Vital Signs Temperature 97.8 F 09/29/24 16:10 Pulse Rate 83 09/29/24 16:10 Respiratory Rate 18 09/29/24 16:10 Blood Pressure 138/61 09/29/24 16:10 Pulse Oximetry 100 09/29/24 16:10 Oxygen Delivery Method Room Air 09/29/24 16:10 Course Orders Ordered: ED Orders 09/29/24 17:08 Complete Blood Count AUTO DIFF Stat Comprehensive Metabolic Panel Stat Lactate (Lactic Acid) Stat Lipase Stat 09/29/24 19:27 Urinalysis and Microscopic Stat Urine Culture Stat 09/29/24 20:09 CT abdomen pelvis wo con Stat 09/29/24 20:58 Blood Culture Stat Discontinued Medications Ceftriaxone Sodium 1,000 mg/ (Sodium Chloride) 100 mls @ 200 mls/hr IV NOW ONE Stop: 09/29/24 21:22 Last Infusion: 09/29/24 22:19 Dose: Infused Documented By: Admin: 09/29/24 21:44 Dose: 200 mls/hr Documented By: LUIS Ondansetron HCl (Ondansetron 4 Mg/2 Ml Inj) 4 mg IV NOW PRN PRN Reason: Nausea And Vomiting Ondansetron HCl (Ondansetron 4 Mg Odt) 4 mg PO NOW PRN PRN Reason: Nausea And Vomiting Vital Signs Vital signs: Vital Signs - 8 hr 09/29/24 18:06 09/29/24 18:30 09/29/24 18:30 Pulse Rate 74 81 Respiratory Rate 12 12 Blood Pressure 111/61 Pulse Oximetry 97 98 Oxygen Delivery Method 09/29/24 19:00 09/29/24 19:00 09/29/24 19:30 Pulse Rate 73 101 H Respiratory Rate 13 24 Blood Pressure 146/74 H Pulse Oximetry 98 Oxygen Delivery Method Room Air 09/29/24 19:31 09/29/24 19:31 09/29/24 20:00 Pulse Rate 88 72 Respiratory Rate 16 12 Blood Pressure 150/72 H Pulse Oximetry 100 97 Oxygen Delivery Method 09/29/24 20:00 09/29/24 20:30 09/29/24 21:00 Pulse Rate 70 71 Respiratory Rate 20 22 Blood Pressure 131/69 Pulse Oximetry 99 98 Oxygen Delivery Method Room Air 09/29/24 21:30 09/29/24 21:48 09/29/24 21:48 Pulse Rate 69 65 Respiratory Rate 19 14 Blood Pressure 143/74 H Pulse Oximetry 98 97 Oxygen Delivery Method Room Air 09/29/24 22:00 09/29/24 22:00 Pulse Rate 68 Respiratory Rate 22 Blood Pressure 140/77 Pulse Oximetry 96 Oxygen Delivery Method Room Air MDM - Nausea/Vomiting/Diarrhea Lab Data Attestation: I reviewed the patient's lab results. Lab results narrative: White blood cell count 6100, hemoglobin 13.6, platelets adequate. Glucose 179. Normal renal function. Serum CO2 slight decreased at 20. Normal electrolytes. Slight AST elevation, other liver functions normal. Lipase normal. Urinalysis with bacteriuria and pyuria, urine culture triggered. 09/29/24 17:08 09/29/24 17:08 Labs: Lab Results 09/29/24 09/29/24 Range/Units 17:08 19:27 WBC 6.1 (4.5-11.0) X10^3/uL RBC 4.44 (4.0-5.2) X10^6/uL Hgb 13.6 (12.0-16.0) g/dL Hct 42.1 (36-46) % MCV 94.7 (80-100) fL MCH 30.7 (26-34) PG MCHC 32.4 (30-36) % RDW 18.2 H (11.6-14.8) % Plt Count 235 (150-400) X10^3/uL Neut % (Auto) 55.6 (50-75) % Lymph % (Auto) 29.7 (25-40) % [place] % (Auto) 6.8 (3-14) % Eos % (Auto) 7.2 H (2-4) % Baso % (Auto) 0.7 (0-2) % Neut # (Auto) 3400 (4587-2119) /uL Lymph # (Auto) 1800 (4023-4705) /uL [place] # (Auto) 400 (0-900) /uL Eos # (Auto) 400 (0-450) /uL Baso # (Auto) 0 (0-100) /uL Sodium 140 (137-145) mmol/L Potassium 4.9 (3.4-5.1) mmol/L Chloride 110 H (98-107) mmol/L Carbon Dioxide 20 L (22-32) mmol/L BUN 16 (7-17) mg/dL Creatinine 0.86 (0.52-1.04) mg/dL Estimated GFR > 60 (>60) mL/min BUN/Creatinine Ratio 18.6 (6-22) Glucose 179 H (70-99) mg/dL Lactate 1.7 (0.7-2.1) mmol/L Calcium 9.4 (8.4-10.2) mg/dL Total Bilirubin 0.3 (0.2-1.3) mg/dL AST 38 H (14-36) IU/L ALT 21 (<35) IU/L Alkaline Phosphatase 65 (38-126) U/L Total Protein 7.7 (6.3-8.2) g/dL Albumin 4.4 (3.5-5.0) g/dL Globulin 3.3 (1.7-4.1) g/dL Albumin/Globulin Ratio 1.3 (1.0-2.8) Lipase 85 D (23-300) U/L Urine Color Yellow Urine Appearance Sl cloudy Urine pH 5.5 (4.5-8.0) Ur Specific [place] 1.020 (1.000-1.035) Urine Protein Negative (Negative) Urine Glucose (UA) 3+ H (Negative) g/dL Urine Ketones Negative (NEGATIVE) Urine Occult Blood Trace-intact (Negative) Urine Nitrate Positive H (Negative) Urine Bilirubin Negative (NEGATIVE) Urine Urobilinogen 0.2 (0.2) E.U./dL Ur Leukocyte Esterase 1+ H (NEGATIVE) Urine RBC 0-1/hpf (0-5/HPF) Urine WBC 30-100/hpf H (0-5/HPF) Ur Squamous Epith Cells 1-5 /hpf (0-5/HPF) Urine Bacteria Many (>30) H (None) Urine Yeast 0-1/hpf (None) Ur Culture Indicated? Specimen cultured Vol Urine Centrifuged 10ml (spun) Imaging Data CT scan - abdomen/pelvis: Radiologist's Impression: [address] [address] [address] Scan Report Signed Patient: Veronique Gould MR#: [id number] : 1945 Acct:[id number] Age/Sex: 79 / F Date of Service: 09/29/24 Loc: ED Accession Number: [id number] Procedure: CT abdomen pelvis wo con Ordering Provider: Jamison Araujo MD PROCEDURE: CT ABDOMEN PELVIS WO CON INDICATIONS: UTI, eval for stone/absces complication TECHNIQUE: After the administration of oral contrast, 5 mm thick sections acquired from the diaphragms to the symphysis. 5 mm coronal and sagittal reformats were performed. For radiation dose reduction, the following was used: automated exposure control, adjustment of mA and/or kV according to patient size. COMPARISON: [facility], CT, CT ABDOMEN PELVIS W CON, 02/11/2020, 13:34. FINDINGS: Image quality: Diagnostic Lower chest: Basal atelectasis bilaterally. Coronary calcifications. Normal heart size. Liver: No contour deforming mass. Solid organs are not well assessed without IV contrast Gallbladder and biliary system: Surgical changes in the right upper quadrant. Nondilated biliary system. Gallbladder appears unremarkable Pancreas: Kvsy-gb-yslfiepi parenchymal atrophy. Possible small cystic lesions at the tail with small calcifications. No ductal dilation Spleen: Nonenlarged Adrenals: No discrete nodules Kidneys: No hydronephrosis. No obstructing calcified stone. Bilateral parapelvic cysts are present. Vessels and lymph nodes: Atherosclerotic calcifications. No abdominal aortic aneurysm. No lymphadenopathy by size criteria. Bowel and peritoneum: Bud-en-Y changes. No bowel obstruction. Moderate degree of colonic fecal loading. No drainable abscess or ascites. Nondilated appendix. Body wall: Anterior abdominal wall postsurgical changes. Pelvis: Bladder is unremarkable. Uterus is not seen Bones: There are degenerative osseous changes. Lumbar postsurgical sequelae and lower lumbar vertebral body endplate deformities, similar to prior. IMPRESSION: No obstructing calcified stone or hydronephrosis. No drainable fluid collection Possible small cystic lesions at the pancreatic tail with small calcifications. A nonurgent pancreas MRI could further evaluate. Other findings above. Dictated by: Juan Antonio Zabala M.D. on 09/29/2024 at 20:30 Approved by: Juan Antonio Zabala M.D. on 09/29/2024 at 20:35 [facility] Narrative Medical decision making narrative: 79-year-old with central abdominal pain, history of urine infections, last treated 10 months ago, they can not recall which agent used. Nausea and vomiting, no loose stools, no black or red stools. Afebrile, sirs screen negative. No significant tenderness to abdomen, well-healed scar. Initial lab tests: White blood cell count 6100, hemoglobin 13.6, platelets adequate. Glucose 179. Normal renal function. Serum CO2 slight decreased at 20. Normal electrolytes. Slight AST elevation, other liver functions normal. Lipase normal. Urinalysis with bacteriuria and pyuria, urine culture triggered. Records review. Urine culture from 09/26/2024 visit when she left without being seen. Grew greater than 100,000 colonies E coli. Sensitive to ceftriaxone, ertapenem, meropenem, nitrofurantoin, Bactrim. Intermediate to Augmentin. Resistant to ampicillin, ciprofloxacin, gentamicin, levofloxacin, tetracycline, Zosyn. IV ceftriaxone for UTI coverage. CT abdomen and pelvis pending, to evaluate for any obstructing stone or complicated UTI. If negative anticipate outpatient treatment. Patient/family agree. CT abdomen and pelvis. Impressions: ?No obstructing calcified stone or hydronephrosis. No drainable fluid collection. Possible small cystic lesions at the pancreatic tail with smell calcifications. A non urgent pancreas MRI could further evaluate. Other findings above.. See radiology report. Bud-en-Y gastric surgery changes noted, no obvious complications associated. Copy of CT report shared with patient, no hydronephrosis or stone changes, no complicated UTI/pyelonephritis changes, pancreatic lesion noted that can be further evaluated as an outpatient. IV ceftriaxone for UTI coverage, history of amoxicillin allergy noted, she has had Keflex before. We will send prescription for cefdinir course, recent UTI sensitive to 3rd generation cephalosporin. Patient feels improved, vital stable, she would like to be treated as an outpatient, prescription sent to her pharmacy. Discharged home with family. Return precautions discussed. Discharge Plan Departure Patient Disposition: Home Clinical Impression: Urinary tract infection, Lesion of pancreas Activity Restrictions/Additional Instructions: History of remote gastric stomach ulcer surgery, now with central abdominal discomfort, urinalysis suspicious for urine infection. History of amoxicillin allergy noted but you had taken cephalexin/Keflex before. IV ceftriaxone, another cephalosporin, was given in the emergency department for treatment of urine infection. CT scan showed no obstructing stone, showed an incidental small lesion in the tail of the pancreas that can be further worked up as an outpatient, that might not necessarily be related to any discomfort that you had but should not be ignored. Please have further workup as an outpatient to make sure that is not a cancerous concern, hopefully this is a benign lesion of no consequence. There was no obstructing stone in the urinary system, no abscess in the kidney system, no surgical/Urology interventions indicated at this time. Take further antibiotics by mouth as directed. Prescription sent for cefdinir antibiotic to take, 300 mg twice daily, for 10 day course. (there was another cefuroxime antibiotic sent in error, this should not be filled or taken) Take antibiotics as directed. Plenty of fluids to hopefully help clear the infection. Recheck later this week with your regular doctor to see how your symptoms are doing, and is check the results of your urine culture final result. Take Tylenol and or Motrin as needed for pain control. If you have urine infection it might be also prudent to get a repeat urine after the course of treatment to make sure it has truly cleared. Return earlier to this/nearest emergency department for any change worsening symptoms or any concerns prior. Prescriptions: New cefdinir 300 mg capsule 300 mg PO BID 10 Days Qty: 20 0RF cefuroxime axetil 500 mg tablet 500 mg PO BID Qty: 20 0RF No Action Parking Permit... 1 unit Not Applicable .continuous Qty: 1 0RF (DME) lancets Misc See Dose Instructions .ROUTE .MEDSUPPLY Qty: 100 3RF Dose Instruction: As directed Rx Instructions: Test fasting blood sugar in the morning and afternoon. (DME) flash glucose sensor kit (freeStyle Young 2 sens See Rx Instructions .Route .MEDSUPPLY Qty: 1 0RF Rx Instructions: use to monitor glucose (DME) freestyle reader #2 See Rx Instructions .Route .MEDSUPPLY Qty: 1 0RF Rx Instructions: use to check blood glucose. naloxone [Narcan] 4 mg/actuation spray,non-aerosol 4 mg intranasal Q3M PRN (Reason: opioid overdose) Qty: 2 3RF Rx Instructions: spray 1 dose into ONE nostril; alternate nostrils w each dose until help arrives levetiracetam 750 mg tablet 1,500 mg PO Q12H Qty: 360 5RF (DME) Disabled Parking Permit See Rx Instructions .ROUTE .MEDSUPPLY Qty: 1 0RF Rx Instructions: As directed. Patient qualifies for disabled parking as per attached form. (DME) Four wheeled walker See Rx Instructions .Route .MEDSUPPLY Qty: 1 0RF Rx Instructions: As directed albuterol sulfate 90 mcg/actuation HFA aerosol inhaler 2 puff inhalation Q6H PRN (Reason: shortness of breath or wheezing) Qty: 8.5 0RF sertraline [Zoloft] 100 mg tablet 100 mg PO DAILY Qty: 90 1RF Rx Instructions: STOP CELEXA (DME) blood-glucose meter Kit See Rx Instructions .ROUTE .MEDSUPPLY Qty: 1 0RF Rx Instructions: Use to test blood sugar up to 3 times a day Jardiance 25 mg tablet 25 mg PO DAILY Qty: 90 3RF levothyroxine 175 mcg tablet 175 mcg PO DAILY Qty: 90 3RF hydrocodone-acetaminophen 5-325 mg tablet 1 tab PO BID PRN (Reason: pain) Qty: 60 0RF Ozempic 2 mg/dose (8 mg/3 mL) pen injector 2 mg SUBCUT QWEEK Qty: 3 3RF Diabetic Shoes 1 pkg miscellaneous DIRECTED Referrals: Amando Carlisle MD [Primary Care Provider] - Stand Alone Forms: Patient Portal/API/Survey
[2024-09-29 19:54] LABS: Bacteria Urine Many (>30); Culture Indicated Urine Specimen Cultured; RBC Urine 0-1/HPF (0-5/HPF); Squamous Epithelial Cell Urine 1-5 /HPF (0-5/HPF); Urine Volume 10mL (spun); WBC Urine 30-100/HPF (0-5/HPF)
--- NOTE | 2024-09-29 20:09 | DI.CT.S_ITS ---
PROCEDURE: CT ABDOMEN PELVIS WO CON INDICATIONS: UTI, eval for stone/absces complication TECHNIQUE: After the administration of oral contrast, 5 mm thick sections acquired from the diaphragms to the symphysis. 5 mm coronal and sagittal reformats were performed. For radiation dose reduction, the following was used: automated exposure control, adjustment of mA and/or kV according to patient size. COMPARISON: [facility], CT, CT ABDOMEN PELVIS W CON, 02/11/2020, 13:34. FINDINGS: Image quality: Diagnostic Lower chest: Basal atelectasis bilaterally. Coronary calcifications. Normal heart size. Liver: No contour deforming mass. Solid organs are not well assessed without IV contrast Gallbladder and biliary system: Surgical changes in the right upper quadrant. Nondilated biliary system. Gallbladder appears unremarkable Pancreas: Wmia-on-rdagpddm parenchymal atrophy. Possible small cystic lesions at the tail with small calcifications. No ductal dilation Spleen: Nonenlarged Adrenals: No discrete nodules Kidneys: No hydronephrosis. No obstructing calcified stone. Bilateral parapelvic cysts are present. Vessels and lymph nodes: Atherosclerotic calcifications. No abdominal aortic aneurysm. No lymphadenopathy by size criteria. Bowel and peritoneum: Bud-en-Y changes. No bowel obstruction. Moderate degree of colonic fecal loading. No drainable abscess or ascites. Nondilated appendix. Body wall: Anterior abdominal wall postsurgical changes. Pelvis: Bladder is unremarkable. Uterus is not seen Bones: There are degenerative osseous changes. Lumbar postsurgical sequelae and lower lumbar vertebral body endplate deformities, similar to prior. IMPRESSION: No obstructing calcified stone or hydronephrosis. No drainable fluid collection Possible small cystic lesions at the pancreatic tail with small calcifications. A nonurgent pancreas MRI could further evaluate. Other findings above. Dictated by: Juan Antonio Zabala M.D. on 09/29/2024 at 20:30 Approved by: Juan Antonio Zabala M.D. on 09/29/2024 at 20:35
[2024-09-29] MEDS: cefTRIAXone 1,000 MG in SODIUM CHLORIDE 0.9% 100 ML 200 MG IV (21:44)
== END 2024-09-29 22:24 | disposition home or self-care (01) ==
PROVIDERS: Student in an Organized Health Care Education/Training Program; Emergency Provider Emergency Medicine; PCP Family Medicine
DX: N39.0 Urinary tract infection, site not specified (principal); K86.9 Disease of pancreas, unspecified; R11.2 Nausea with vomiting, unspecified
CPT/HCPCS: 74176; 80053; 81001; 83605; 83690; 85025; 87040; 87077; 87086; 87186; 96365; 99283; 99284; J0696

== ENCOUNTER → 2024-10-01 19:13 | Outpatient (CLI) | payer MEDICARE, OTHER, SELFPAY ==
--- NOTE | 2024-10-01 19:30 | DI.MRI.S_ITS ---
PROCEDURE: MR AB PANCREATIC/MRCP PROTOCOL INDICATIONS: Lesion of pancreas TECHNIQUE: Coronal HASTE through the abdomen, axial 2-D FLASH in- and oxc-an-frasz, and breath-hold T2 FSE with fat saturation through the biliary system and pancreas. Oblique coronal and axial thin-slice HASTE, radial thick-slab HASTE centered on the extrahepatic bile ducts. Intravenous secretin: Not requested. COMPARISON: [facility], CT, CT ABDOMEN PELVIS WO [facility], 09/29/2024, 20:18. FINDINGS: Image quality: Diagnostic. Gallbladder: No gallstones or wall thickening. Biliary ducts: No biliary dilation. Pancreas: No ductal dilation. Significant volume loss seen throughout the gland, with loss of normal T1 signal. There are multiple fluid containing structures in the region of the tail measuring up to 8 mm, which probably communicates with the main pancreatic duct. Several similar structures measuring up to 9 mm also seen in the region of the neck. No definite solid lesion seen. OTHER: Lung bases: Unremarkable. Liver: No solid mass. Spleen: Size is within normal limits. Adrenal Glands: No adrenal nodules. Kidneys and Ureters: No hydronephrosis. No solid mass. A subcentimeter hemorrhagic cyst in the left kidney. Stomach and Bowel: Normal colonic caliber, without significant wall thickening. Peritoneum: No abnormal intraperitoneal fluid. No free air. Ventral Wall: No hernia. Abdominal Nodes: No retroperitoneal or mesenteric adenopathy by size criteria. Vessels: Aorta and inferior vena cava are normal in size. Bones: No aggressive osseous abnormality. IMPRESSION: Findings most suggestive of chronic pancreatitis, with several subcentimeter IPMNs in the region of the tail and neck. No suspicious focal lesion seen. Dictated by: Raghu Alberts M.D. on 10/01/2024 at 20:40 Approved by: Raghu Alberts M.D. on 10/01/2024 at 20:51
== END ==
PROVIDERS: PCP Family Medicine; Referring Provider Family Medicine; Visit Provider Family Medicine
DX: K86.9 Disease of pancreas, unspecified (principal)
CPT/HCPCS: 74183; A9579

== ENCOUNTER → 2024-10-21 13:59 | Outpatient (CLI) | payer MEDICARE, OTHER, MEDICAID, SELFPAY ==
--- NOTE | 2024-10-21 14:01 | DI.ECHO.S_ITS ---
[facility]+ [facility] : : [address] : : [place] : : [id number] : : Phone: [phone] Echocardiogram Report + + :Name: YOLANDA TURK Study Date: 10/21/2024 Height: 64 in : :[facility] ReadingLocation: Weight: 200 lb : : Gender: Female BSA: 2.0 m2 : :: 1945 Age: 79 yrs BP: 118/77 mmHg: :Reason For Study: DYSPNEA ON EXERTION : :Ordering Physician: SHAKEEL, : :DAISY Performed By: Riley Verdugo : :Referring: DAISY BECKFORD : + + Interpretation Summary The ejection fraction is estimated to be 55-60%. The mitral valve leaflets appear mildly thickened, but open well. The aortic valve is slightly calcified. Procedure: A two-dimensional transthoracic echocardiogram with color flow and Doppler was performed. The study quality was technically adequate. There is no prior echocardiogram noted for this patient. The patient was in normal sinus rhythm during the exam. Left Ventricle: The left ventricle is normal in size. Left ventricular wall thickness is mildly increased. There is no ventricular septal defect visualized. The ejection fraction is estimated to be 55-60%. There are no focal wall motion abnormalities. Diastolic parameters suggest a relaxation abnormality of the left ventricle, consistent with probable normal filling pressures. Right Ventricle: The right ventricle is normal size. The right ventricular systolic function is normal. Atria: The left atrial size is normal. Right atrial size is normal. The interatrial septum is not well visualized. Mitral Valve: There is mild to moderate mitral annular calcification. The mitral valve leaflets appear mildly thickened, but open well. The mitral valve leaflets are mildly calcified. There is no mitral regurgitation noted. Aortic Valve: The aortic valve is trileaflet. The aortic valve is slightly calcified. The aortic valve opens well. No aortic regurgitation is present. Tricuspid Valve: The tricuspid valve leaflets are thin and pliable. No tricuspid regurgitation. Pulmonic Valve: The pulmonic valve is not well visualized. There is no pulmonic valvular regurgitation. Great Vessels: The aortic root is normal size. The dimensions of the ascending aorta are normal. The pulmonary is not well visualized. The inferior vena cava was not visualized. Pericardium/ Pleura There is no pericardial effusion. MMode/2D Measurements & Calculations LVIDd: 3.3 cm LVOT diam: 1.9 cm LVIDs: 2.3 cm Ao root diam: 3.1 cm FS: 29.9 % asc Aorta Diam: 3.7 cm EPSS: 0.55 cm IVSd: 1.1 cm LVPWd: 1.1 cm LV odell. diameter/BSA (cm/m^2): 1.7 LV sys. diameter/BSA (cm/m^2): 1.2 LA A2 area: 13.8 cm2 RA long axis: 5.2 cm LA A4 area: 12.7 cm2 RA area: 13.0 cm2 LA length (vol): 5.5 cm RA vol: 28.0 ml LA vol: 27.3 ml RA : 14.3 ml/m2 LA vol index: 14.0 ml/m2 RVD1 (basal): 3.1 cm RVD2 (mid): 2.7 cm Doppler Measurements & Calculations Ao V2 max: 109.6 cm/sec LVOT Max Jorge L: 90.6 cm/sec Ao V2 mean: 80.9 cm/sec LV V1 max P.3 mmHg Ao max P.8 mmHg LV V1 VTI: 4.4 cm Ao mean P.9 mmHg EWDIN(I,D): 0.64 cm2 Ao V2 VTI: 19.1 cm EDWIN(V,D): 2.3 cm2 sev ratio: 0.23 EDWIN indexed to BSA (cm^2/m^2): 0.33 MV E max jorge l: 58.0 cm/sec PA V2 max: 87.2 cm/sec MV A max jorge l: 98.9 cm/sec PA V2 mean: 64.8 cm/sec MV E/A: 0.59 PA mean P.8 mmHg Med Peak E' Jorge L: 5.7 cm/sec PA pr(Accel): 48.2 mmHg E/E' med: 10.2 Lat Peak E' Jorge L: 6.6 cm/sec E/E' lat: 8.8 E/e' average: 9.5 MV dec time: 0.19 sec SV(LVOT): 12.2 ml Reading Physician:03:37 PM
== END ==
PROVIDERS: PCP Family Medicine; Referring Provider Family Medicine; Visit Provider Family Medicine
DX: I34.81 Nonrheumatic mitral (valve) annulus calcification (principal); E11.9 Type 2 diabetes mellitus without complications; R06.09 Other forms of dyspnea; I10 Essential (primary) hypertension; E78.2 Mixed hyperlipidemia
CPT/HCPCS: 93306